=== PATIENT | male | born 1940 | race Caucasian/White ===

== ENCOUNTER 2023-04-21 04:54 | Inpatient (IN) ==
[2023-04-21] MEDS ORDERED: ONDANSETRON INJ 2 MG/ML 2 ML VIAL ONE (05:03)
[2023-04-21] MEDS ORDERED: fentaNYL citrate PF 100 MCG/2 ML VIAL ONE (05:03)
[2023-04-21] MEDS ORDERED: ONDANSETRON INJ 2 MG/ML 2 ML VIAL IV STA (05:24)
[2023-04-21] MEDS ORDERED: KETOROLAC 30 MG/ML VIAL IV ONE (05:24)
--- NOTE | 2023-04-21 05:41 | Emergency Department Note ---
Impression & Plan CHF (congestive heart failure), Hypoxia, Acute right flank pain, Supratherapeutic INR Admit to the [facility] [place] Provider Note NAME: KRISTINE BECKHAM AGE: 83 SEX: Male INFORMANT: Patient ED PROVIDER(S): Afsaneh Valenzuela DO CHIEF COMPLAINT: Right low back pain PLAN: Disposition: Admit to the [facility] [place] MEDICAL DECISION MAKING: This is an 83-year-old male patient presents emergency department with right- sided flank pain. During his emergency department evaluation, he was noted to be hypoxic with O2 saturations as low as 78%. On CT scan of the chest, the patient was noted to have significant evidence of congestive heart failure and the possibility of a small pulmonary embolism. He was treated with IV Lasix. The patient has an indwelling IVC filter and is on Coumadin with a supratherapeutic INR. Patient's right flank pain was treated prehospital setting with IV fentanyl and here in the emergency department with IV Toradol and IV Tylenol. This pain was thought to be musculoskeletal in origin. Care/management discussed with: The patient, his son, and the [facility] [place] Triage Nursing notes: reviewed and agree with them. Vital Signs: reviewed and remarkable for hypoxia Additional History obtained from: His son is at the bedside Chronic Medical/Social Conditions affecting care: CHF, A-fib, DVT, long-term anticoagulant use Differential Diagnosis: Ureteral colic, pyelonephritis, musculoskeletal strain, low back pain, sciatica Diagnostics, independently interpreted by me: ECG: Atrial fibrillation at a rate of 76 with a prolonged QT C at 506 ms. There is no ST segment elevation or signs of ischemia. Cardiac Monitoring: A-fib at a rate of 75 Imaging studies: CT scan of the chest: See radiology report HPI: 83 year old Male arrives for evaluation of low back pain. Patient developed some discomfort in his right low back a couple of days ago but the discomfort significantly worsened tonight. He describes having a similar episode approximately 1 month ago which was self-limited. PAST MEDICAL HISTORY: Diabetes, hypertension, heart disease, gout, arthritis, A- fib PAST SURGICAL HISTORY: Cholecystectomy, CABG x2 SOCIAL HISTORY: See Below, HOME MEDICATIONS: See list ALLERGIES: Niacin VITALS: See Below PHYSICAL EXAMINATION: HEENT: Head - normocephalic and atraumatic. Pupils are equal, round, and reactive to light. Extraocular eye muscles are intact, and sclera are anicteric. Moderate mucous within both eyes. Right greater than left. Nose - moist nasal mucosa without discharge. Mouth - moist buccal mucosa. Oropharynx is nonerythematous and there is no tonsillar exudate or edema noted. Neck: Supple; no JVD, nuchal rigidity, cervical lymphadenopathy, or auscultated bruits. Heart: Irregularly irregular rhythm with a controlled rate. There is a normal S1 and S2 with no murmurs, clicks, or gallops appreciated. Lungs: Clear to auscultation bilaterally with no wheezes, rales, or rhonchi. Abdomen: Soft, completely nontender, moderately distended, with good bowel sounds. There are no palpable pulsatile masses or hepatosplenomegaly. There is no guarding, rigidity, or rebound noted. Extremities: No evidence of cyanosis, clubbing, or edema. There are easily palpable peripheral pulses. Skin: Extremely dry and flaking Back: Patient has reproducible discomfort with palpation over the right flank. There is no pain to palpation over the midline lumbar spine or over the right PSIS ED treatment: balance assembler; IV Toradol; IV Zofran, IV Tylenol, IV Lasix Emergency department course: Patient was evaluated in room B12. A complete history and physical was performed. An order was placed for continuous cardiac monitoring. The patient was in A-fib at a rate of 75. A twelve-lead EKG was obtained as described above. The patient was given a dose of IV Zofran for nausea and a dose of IV Toradol for persistent right flank pain. The patient was noted to be persistently hypoxic without oxygen. In fact O2 saturations dropped as low as 78%. The patient went for CT scan of the chest for persistent hypoxia. Patient was given a dose of IV Lasix for significant congestive heart failure. Patient continued to complain of right flank pain and was given a dose of IV Tylenol. I discussed the case with the [facility] Hospitalist and they will admit for significant hypoxia and congestive heart failure. I have personally spent greater than 65 minutes of critical care time in the direct management of this patient. This includes bedside care, interpretation of diagnostic studies, and testing, discussion with consultants, patient, and family members, and other required patient management activities. This 65minutes is in excess of all separately billable procedures. Past Med/Surg History Social History Smoking Status: Former smoker Hx Alcohol Use: No Hx Substance Use: No Preferred Language: Maltese Communication Ability: Effective Historical Records Administrator Required: No Beliefs That Will Affect Care: None Current Living Situation: Other Current Living Situation Comment: with son Other Information That Helps Us Care for You: No Feels Safe at Home: Yes Safety Concerns: Feels Safe At This Time Assistive Devices: Cane and Glasses Allergies Allergies Allergy/AdvReac Type Severity Reaction Status Date / Time niacin Allergy Intermediate HIVES Verified 04/21/23 09:30 Home Meds Home Medications Medication Instructions Recorded Confirmed nitroglycerin 0.4 mg sublingual 0.4 mg sublingual PRN PRN Chest 12/09/09 04/21/23 tablet (Nitrostat) Pain ##0 terazosin 2 mg capsule 2 mg PO DAILY ##90 12/07/13 04/21/23 bismuth subsalicylate 525 mg/15 mL 525 mg PO DAILY PRN Diarrhea ##0 10/13/15 04/21/23 oral suspension travoprost 0.004 % eye drops 1 drp OPB HS #1 btl 10/13/15 04/21/23 allopurinol 100 mg tablet 200 mg PO QAM 04/21/23 04/21/23 aspirin 81 mg chewable tablet 81 mg PO .SUN/SUN/Sun04/21/23 04/21/23 brimonidine 0.2 % eye drops 1 drp OPL BID 04/21/23 04/21/23 dorzolamide-timolol (PF) 2 %-0.5 % 1 drp OPL BID 04/21/23 04/21/23 eye drops in a dropperette ezetimibe 10 mg-simvastatin 40 mg 1 tab PO HS 04/21/23 04/21/23 tablet furosemide 40 mg tablet 40 mg PO QAM 04/21/23 04/21/23 insulin aspart U-100 100 unit/mL 0 - 20 unit subcut .TIDWMEALS 04/21/23 04/21/23 subcutaneous solution (Novolog U-100 Insulin aspart) insulin detemir U-100 100 unit/mL 20 unit subcut HS 04/21/23 04/21/23 subcutaneous solution (Levemir U-100 Insulin) metformin 1,000 mg tablet 1,000 mg PO BID 04/21/23 04/21/23 metoprolol succinate 25 mg 25 mg PO BID 04/21/23 04/21/23 tablet,extended release 24 hr sotalol 120 mg tablet 120 mg PO BID 04/21/23 04/21/23 warfarin 7.5 mg tablet 3.75 mg PO [id number] 04/21/23 04/21/23 Results & Data (ED) Vital Signs Vital Signs - 24 hr 04/21/23 05:00 04/21/23 05:00 04/21/23 05:00 Temperature 36.4 C L Temperature Source Oral Pulse Rate 81 84 80 Pulse Rate [Apical] Pulse Rate from SpO2 Sensor Respiratory Rate 16 14 Respiratory Effort / Characteristics Non-Labored Respiratory Depth Normal Respiratory Pattern Regular Blood Pressure 148/84 H 148/84 H Blood Pressure [Right Arm] Blood Pressure Mean 105 105 Blood Pressure Mean [Right Arm] Pulse Oximetry 92 87 L Oxygen Delivery Method Nasal Cannula Room Air Oxygen Flow Rate 3 Sepsis Recent Fever Within 48 Hours No Sepsis New/Unexplained Change in Mental Status N/A Sepsis Action Taken by Nursing No Action Required Oxygen Flow Rate - Titration Pulse Oximetry Post Tiitration 04/21/23 06:05 04/21/23 06:48 04/21/23 07:00 Temperature Temperature Source Pulse Rate 79 82 Pulse Rate [Apical] 74 Pulse Rate from SpO2 Sensor 83 Respiratory Rate 22 15 18 Respiratory Effort / Characteristics Non-Labored Respiratory Depth Normal Respiratory Pattern Regular Blood Pressure 129/84 145/78 H Blood Pressure [Right Arm] 140/76 Blood Pressure Mean 99 100 Blood Pressure Mean [Right Arm] 97 Pulse Oximetry 94 94 98 Oxygen Delivery Method Nasal Cannula Nasal Cannula Nasal Cannula Oxygen Flow Rate 3 3 3 Sepsis Recent Fever Within 48 Hours Sepsis New/Unexplained Change in Mental Status Sepsis Action Taken by Nursing Oxygen Flow Rate - Titration Pulse Oximetry Post Tiitration 04/21/23 07:30 04/21/23 08:05 04/21/23 08:45 Temperature Temperature Source Pulse Rate 75 95 H Pulse Rate [Apical] Pulse Rate from SpO2 Sensor 76 Respiratory Rate 21 Respiratory Effort / Characteristics Respiratory Depth Respiratory Pattern Blood Pressure 145/73 H 142/92 H Blood Pressure [Right Arm] Blood Pressure Mean 97 108 Blood Pressure Mean [Right Arm] Pulse Oximetry 96 78 L Oxygen Delivery Method Nasal Cannula Room Air Oxygen Flow Rate 3 0 Sepsis Recent Fever Within 48 Hours Sepsis New/Unexplained Change in Mental Status Sepsis Action Taken by Nursing Oxygen Flow Rate - Titration 4 Pulse Oximetry Post Tiitration 97 04/21/23 09:00 04/21/23 09:31 04/21/23 10:00 Temperature Temperature Source Pulse Rate 73 75 79 Pulse Rate [Apical] Pulse Rate from SpO2 Sensor 77 81 80 Respiratory Rate 22 19 18 Respiratory Effort / Characteristics Respiratory Depth Respiratory Pattern Blood Pressure 140/78 159/83 H 149/77 H Blood Pressure [Right Arm] Blood Pressure Mean 98 108 101 Blood Pressure Mean [Right Arm] Pulse Oximetry 97 99 96 Oxygen Delivery Method Nasal Cannula Nasal Cannula Oxygen Flow Rate 2 2 Sepsis Recent Fever Within 48 Hours Sepsis New/Unexplained Change in Mental Status Sepsis Action Taken by Nursing Oxygen Flow Rate - Titration Pulse Oximetry Post Tiitration Laboratory Data 04/21/23 06:17 04/21/23 06:17 Lab Results 04/21/23 04/21/23 04/21/23 Range/Units 05:06 06:17 06:22 WBC 7.63 (4.8-10.8) K/ul RBC 3.78 L (4.70-6.10) M/uL Hgb 10.4 L (14.0-18.0) g/dl Hct 33.4 L (42.0-52.0) % MCV 88.4 (80.0-100.0) fL MCH 27.5 (25.0-34.0) pg MCHC 31.1 L (32.0-36.0) g/dL RDW Std Deviation 53.0 H (36.4-46.3) fL RDW Coeff of Radha 16.3 H (11.5-14.5) % Plt Count 176 (130-400) K/uL MPV 11.5 (9.4-12.4) fL Immature Gran % (Auto) 1.6 % Neut % (Auto) 78.5 % Lymph % (Auto) 11.1 % [place] % (Auto) 7.5 % Eos % (Auto) 0.9 % Baso % (Auto) 0.4 % Neut # (Auto) 5.99 (1.40-6.50) K/uL Lymph # (Auto) 0.85 L (1.20-3.40) K/uL [place] # (Auto) 0.57 (0.11-0.59) K/uL Eos # (Auto) 0.07 (0.00-0.50) K/uL Baso # (Auto) 0.03 (0.00-0.20) K/uL Immature Gran # (Auto) 0.12 (0.01-0.20) K/uL PT 63.4 H (9.0-12.0) Seconds INR 6.5 H* (0.9-1.1) Sodium 137 (136-145) mmol/L Potassium 3.3 L (3.5-5.1) mmol/L Chloride 103 (98-107) mmol/L Carbon Dioxide 27 (21-32) mmol/L Anion Gap 7 (3-11) BUN 21 (6-23) mg/dl Creatinine 1.04 (0.6-1.4) mg/dl Est Cr Clr Drug Dosing 63.8 ml/min Est GFR ( Amer) 76.1 ml/min Est GFR (Non-Af Amer) 65.6 ml/min BUN/Creatinine Ratio 20.2 H (10-20) Glucose 127 H (70-99(Fasting)) mg/dl Calcium 9.1 (8.6-10.3) mg/dl Total Bilirubin 0.9 (0.2-1.0) mg/dl AST 30 (13-39) U/L ALT 24 (7-52) U/L Alkaline Phosphatase 114 H (34-104) U/L Troponin I High Sens 13.9 (0-20) pg/ml B-Natriuretic Peptide (0-100) pg/ml Total Protein 7.6 (6.0-8.3) gm/dl Albumin 3.6 (3.4-5.0) gm/dl Globulin 4.0 (2.5-4.0) gm/dl Albumin/Globulin Ratio 0.9 (0.9-2) Urine Color Yellow Urine Appearance Clear (Clear) Urine pH 5.0 (4.5-7.5) Ur Specific [place] 1.011 (1.000-1.030) Urine Protein 1+ H (Negative) Urine Glucose (UA) Negative (Negative) Urine Ketones Negative (Negative) Urine Blood Negative (Negative) Urine Nitrite Negative (Negative) Urine Bilirubin Negative (Negative) Urine Urobilinogen Negative (Negative) Ur Leukocyte Esterase Negative (Negative) Urine WBC (Auto) 1-5 (0-5) /hpf Urine RBC (Auto) 0-4 (0-4) /hpf U Hyaline Cast (Auto) 1-5 (0-5) /lpf U Epithel Cells (Auto) 10-20 H (0-5) /lpf Urine Bacteria (Auto) Negative (Negative) 04/21/23 Range/Units 10:27 WBC (4.8-10.8) K/ul RBC (4.70-6.10) M/uL Hgb (14.0-18.0) g/dl Hct (42.0-52.0) % MCV (80.0-100.0) fL MCH (25.0-34.0) pg MCHC (32.0-36.0) g/dL RDW Std Deviation (36.4-46.3) fL RDW Coeff of Radha (11.5-14.5) % Plt Count (130-400) K/uL MPV (9.4-12.4) fL Immature Gran % (Auto) % Neut % (Auto) % Lymph % (Auto) % [place] % (Auto) % Eos % (Auto) % Baso % (Auto) % Neut # (Auto) (1.40-6.50) K/uL Lymph # (Auto) (1.20-3.40) K/uL [place] # (Auto) (0.11-0.59) K/uL Eos # (Auto) (0.00-0.50) K/uL Baso # (Auto) (0.00-0.20) K/uL Immature Gran # (Auto) (0.01-0.20) K/uL PT (9.0-12.0) Seconds INR (0.9-1.1) Sodium (136-145) mmol/L Potassium (3.5-5.1) mmol/L Chloride (98-107) mmol/L Carbon Dioxide (21-32) mmol/L Anion Gap (3-11) BUN (6-23) mg/dl Creatinine (0.6-1.4) mg/dl Est Cr Clr Drug Dosing ml/min Est GFR ( Amer) ml/min Est GFR (Non-Af Amer) ml/min BUN/Creatinine Ratio (10-20) Glucose (70-99(Fasting)) mg/dl Calcium (8.6-10.3) mg/dl Total Bilirubin (0.2-1.0) mg/dl AST (13-39) U/L ALT (7-52) U/L Alkaline Phosphatase (34-104) U/L Troponin I High Sens (0-20) pg/ml B-Natriuretic Peptide 621 H (0-100) pg/ml Total Protein (6.0-8.3) gm/dl Albumin (3.4-5.0) gm/dl Globulin (2.5-4.0) gm/dl Albumin/Globulin Ratio (0.9-2) Urine Color Urine Appearance (Clear) Urine pH (4.5-7.5) Ur Specific [place] (1.000-1.030) Urine Protein (Negative) Urine Glucose (UA) (Negative) Urine Ketones (Negative) Urine Blood (Negative) Urine Nitrite (Negative) Urine Bilirubin (Negative) Urine Urobilinogen (Negative) Ur Leukocyte Esterase (Negative) Urine WBC (Auto) (0-5) /hpf Urine RBC (Auto) (0-4) /hpf U Hyaline Cast (Auto) (0-5) /lpf U Epithel Cells (Auto) (0-5) /lpf Urine Bacteria (Auto) (Negative) Administered Medications Diclofenac Sodium (Diclofenac Sod 1% Gel 100 Gm Tube) 4 gm EXT Q6H [facility]; Protocol Stop: 05/21/23 11:44 Last Admin: 04/21/23 14:10 Dose: 4 gm Documented By: GUSTAVO Furosemide (Furosemide Inj 20 Mg/2 Ml Vial) 20 mg IV 1400 [facility] Stop: 05/21/23 13:59 Last Admin: 04/21/23 15:54 Dose: 20 mg Documented By: ELISA Insulin Aspart (Insulin Aspart Per Unit Charge) 0 units SC ACHS [facility] Stop: 05/21/23 11:29 Last Admin: 04/21/23 14:10 Dose: 1 units Documented By: GUSTAVO Co-signed By: MICHELLE Lactic Acid (Ammonium Lactate 12% Lotion 225 Gm Btl) 1 gm EXT BID [facility] Stop: 05/21/23 10:29 Last Admin: 04/21/23 14:09 Dose: 1 gm Documented By: GUSTAVO Metoprolol Succinate (Metoprolol Succ 50mg Ext Rel Tab) 100 mg PO BID [facility] Stop: 05/21/23 13:29 Last Admin: 04/21/23 14:11 Dose: 100 mg Documented By: GUSTAVO Discontinued Medications Furosemide (Furosemide 40 Mg/4 Ml Vial) 40 mg IV ONE ONE Stop: 04/21/23 09:10 Last Admin: 04/21/23 09:18 Dose: 40 mg Documented By: RIMMA Acetaminophen (Ofirmev) 1,000 mg in 100 mls @ 400 mls/hr IV NOW STA Stop: 04/21/23 09:37 Last Infusion: 04/21/23 11:19 Dose: Infused Documented By: Admin: 04/21/23 09:52 Dose: 400 mls/hr Documented By: RIMMA Ioversol (Optiray 320 500ml) 104 ml IV ONCE ONE Stop: 04/21/23 08:35 Last Admin: 04/21/23 08:35 Dose: 104 ml Documented By: GURJIT Ketorolac Tromethamine (Ketorolac 30 Mg/Ml Vial) 30 mg IV NOW ONE Stop: 04/21/23 05:25 Last Admin: 04/21/23 05:29 Dose: 30 mg Documented By: NEGRITA Metoprolol Succinate (Metoprolol Succ 25mg Ext Rel Tab) 25 mg PO BID [facility] Stop: 05/21/23 12:39 Last Admin: 04/21/23 15:43 Dose: Not Given Documented By: ELISA Ondansetron HCl (Ondansetron Inj 2 Mg/Ml 2 Ml Vial) 4 mg IV NOW STA Stop: 04/21/23 05:25 Last Admin: 04/21/23 05:29 Dose: 4 mg Documented By: NEGRITA Potassium Chloride (Potassium Chloride Crtab 20 Meq Tabcr) 40 meq PO NOW STA Stop: 04/21/23 09:56 Last Admin: 04/21/23 11:16 Dose: 40 meq Documented By: CAREN Sotalol HCl (Sotalol Hcl 80 Mg Tab) 120 mg PO BID [facility] Stop: 05/21/23 12:39 Last Admin: 04/21/23 15:43 Dose: Not Given Documented By: ELISA Imaging Data Radiologist's Impression: Abdomen/Pelvis CT 04/21/23 08:09 CT abd pelvis IV con only CLINICAL HISTORY: eval right flank pain TECHNIQUE: Helical axial images of the abdomen and pelvis were obtained and displayed. Automated dose lowering techniques and/or adjustment according to patient size were utilized for this exam. This exam was performed with intravenous contrast. COMPARISON: Comparison is made to CT abdomen pelvis 08/13/2011 FINDINGS: Lower chest: For findings above the diaphragm, please see CT chest performed same day. Liver: Unremarkable. No focal lesions are seen. Gallbladder and biliary tree: Patient is status post cholecystectomy. No intra- or extrahepatic biliary ductal dilation. Pancreas: Unremarkable, no focal lesions. Spleen: Unremarkable. Adrenals: Unremarkable. Kidneys and ureters: Bilateral renal cysts are seen. Bladder: Unremarkable. Reproductive organs: Prostatomegaly is seen. Bowel: The appendix is normal. Lymph nodes Retroperitoneal: Unremarkable. Pelvic: Unremarkable. Mesenteric: Unremarkable. Peritoneum: Normal. Vessels: Atherosclerotic calcifications are seen. An IVC filter is noted. Abdominal wall: A fat-containing umbilical hernia is seen. Bones: Degenerative changes in the visualized spine. Right hip total arthroplasty is seen. There is no made of a few scattered sclerotic foci which may represent bone islands, for example in the left hemipelvis. IMPRESSION: 1. No evidence of acute fracture. 2. Status post cholecystectomy. 3. Additional findings as above. ACT 112: Negative or not required by law. Electronically signed by: Chandrakant Head M.D. 04/21/2023 9:04 AM Chest CTA 04/21/23 08:09 CT angio chest PE protocol CLINICAL HISTORY: PE TECHNIQUE: Multidetector row helical CT of the chest was performed with angiographic protocol. Coronal and sagittal reformations were obtained. Coronal and sagittal MIPS were obtained from the axial data set and were submitted for review. Automated dose lowering techniques and/or adjustment according to patient size were utilized for this exam. CT DOSE: 2388.68 mGy.cm Comparison: Comparison is made to chest radiograph 10/13/2015 FINDINGS: Lungs and pleura: Small bilateral pleural effusions are seen. There is smooth intralobular septal thickening. Bronchiole wall thickening is noted and there is minimal atelectasis. There is a 8mm pulmonary nodule in the left apex (series 4 image 191) and a 6 mm nodule in the left lower lobe (image 89). Heart and pericardium: Cardiomegaly is seen with biatrial enlargement. Aortic valvular prosthesis is noted. Vessels: Severe atherosclerotic changes in the aorta and coronary arteries. There is a small filling defect in the right lower lobe (series 4 image 71). Mediastinum and chris: Numerous mediastinal lymph nodes measure up to 16 mm in diameter. Chest wall and lower neck: Multiple thyroid nodules measure up to 21 mm in diameter. Gynecomastia is noted. Abdomen: For findings below the diaphragm, please refer to CT of the abdomen dated the same. Bones: Degenerative changes in the thoracic spine. Nonspecific mild scattered sclerotic changes are seen for example in the right posterior sixth rib. IMPRESSION: 1. Findings are compatible with moderate to severe pulmonary edema. Bronchial thickening may represent small airways disease. Mediastinal nodes may be reactive. 2. Questionable pulmonary embolus in the medial right lower lobe segmental branch versus diminished flow to atelectatic lung. 3. Multiple thyroid nodules, if not previously evaluated, thyroid ultrasound can be performed. 4. Pulmonary nodules as above. According to Fleischner criteria, 3 month follow-up CT can be performed. ACT 112: Negative or not required by law. Electronically signed by: Chandrakant Head M.D. 04/21/2023 8:52 AM Venous Doppler Study 04/21/23 10:25 US venous doppler LE BI CLINICAL HISTORY: r/o dvt ble TECHNIQUE: Bilateral lower extremity real-time compression venous ultrasound with Color Doppler imaging. Utilizing real-time ultrasonic imaging multiple real time high-resolution ultrasonic images with compression and noncompression maneuvers of the deep venous system in addition to color doppler imaging were performed from the common femoral vein through the proximal calf veins. COMPARISON: None available at the time of this dictation. FINDINGS/IMPRESSION: Currently there is normal compressibility of the deep venous system from the common femoral vein through the proximal calf veins. Evaluation of calf vessels is limited by subcutaneous edema. ACT 112: Negative or not required by law. Electronically signed by: Chandrakant Head M.D. 04/21/2023 1:15 PM Discharge Plan Visit Data Chief Complaint: Back Injury/Pain Stated Complaint: Lower Back Pain ED Provider: Afsaneh Valenzuela Discharge Problem: CHF (congestive heart failure), Hypoxia, Acute right flank pain, Supratherapeutic INR Patient Disposition: Admitted As Inpatient Discharge Instructions Interventions: ED Discharge Assessment Last Done: 04/21/23 12:22 Discharge Problem: CHF (congestive heart failure) Qualifiers: Heart failure type: unspecified Heart failure chronicity: acute Qualified Code(s): I50.9 - Heart failure, unspecified
[2023-04-21 05:45] LABS: Appearance Urine Clear (Clear); Bacteria Urine Automated Negative (Negative); Bilirubin Urine Negative (Negative); Blood Urine Negative (Negative); Color Urine Yellow; Glucose Urine UA Negative (Negative); Ketones Urine Negative (Negative); Leukocyte Esterase Urine Negative (Negative); Nitrite Urine Negative (Negative); Protein Urine 1+ (Negative); RBC Urine Automated 0-4 /hpf (0-4); Specific Gravity Urine 1.011 (1.000-1.030); Urobilinogen Urine Negative (Negative)
[2023-04-21 07:26] LABS: Albumin Globulin Ratio 0.9 (0.9-2); Albumin Level 3.6 gm/dl (3.4-5.0); BUN Creatinine Ratio 20.2 (10-20); Bilirubin,Total 0.9 mg/dl (0.2-1.0); Calcium 9.1 mg/dl (8.6-10.3); Creatinine Clr Calc Pharmacy 63.8 ml/min; Est GFR (African American) 76.1 ml/min; Est GFR (Non-African American) 65.6 ml/min; Potassium 3.3 mmol/L (3.5-5.1); Total Protein 7.6 gm/dl (6.0-8.3)
[2023-04-21 07:41] LABS: Basophils # (auto) 0.03 K/uL (0.00-0.20); Basophils % (auto) 0.4 %; Eosinophils # (auto) 0.07 K/uL (0.00-0.50); Eosinophils % (auto) 0.9 %; Hematocrit (blood only) 33.4 % (42.0-52.0); Hemoglobin 10.4 g/dl (14.0-18.0); Immature Granulocytes # (auto) 0.12 K/uL (0.01-0.20); Immature Granulocytes % (auto) 1.6 %; Lymphocytes # (auto) 0.85 K/uL (1.20-3.40); Lymphocytes % (auto) 11.1 %; Mean Corpuscular Hemoglobin 27.5 pg (25.0-34.0); Mean Corpuscular Hgb Conc 31.1 g/dL (32.0-36.0); Mean Corpuscular Volume 88.4 fL (80.0-100.0); Mean Platelet Volume 11.5 fL (9.4-12.4); Monocytes # (auto) 0.57 K/uL (0.11-0.59); Monocytes % (auto) 7.5 %; Neutrophils # (auto) 5.99 K/uL (1.40-6.50); Neutrophils % (auto) 78.5 %; Platelet Count 176 K/uL (130-400); RDW Coefficient of Variation 16.3 % (11.5-14.5); Red Blood Count 3.78 M/uL (4.70-6.10); White Blood Count 7.63 K/ul (4.8-10.8)
[2023-04-21] MEDS ORDERED: OPTIRAY 320 500ml IV ONE (08:34)
--- NOTE | 2023-04-21 08:55 | CT Scan Report ---
CT angio chest PE protocol CLINICAL HISTORY: PE TECHNIQUE: Multidetector row helical CT of the chest was performed with angiographic protocol. Ferraro l and sagittal reformations were obtained. Coronal and sagittal MIPS were obtained from the axial gee a set and were submitted for review. Automated dose lowering techniques and/or adjustment according to patient size were utilized for this exam. CT DOSE: 2388.68 mGy.cm Comparison: Comparison is made to chest radiograph 10/13/2015 FINDINGS: Lungs and pleura: Small bilateral pleural effusions are seen. There is smooth intralobular septal thi ckening. Bronchiole wall thickening is noted and there is minimal atelectasis. There is a 8mm pulmona ry nodule in the left apex (series 4 image 191) and a 6 mm nodule in the left lower lobe (image 89). Heart and pericardium: Cardiomegaly is seen with biatrial enlargement. Aortic valvular prosthesis is noted. Vessels: Severe atherosclerotic changes in the aorta and coronary arteries. There is a small filling defect in the right lower lobe (series 4 image 71). Mediastinum and chris: Numerous mediastinal lymph nodes measure up to 16 mm in diameter. Chest wall and lower neck: Multiple thyroid nodules measure up to 21 mm in diameter. Gynecomastia is noted. Abdomen: For findings below the diaphragm, please refer to CT of the abdomen dated the same. Bones: Degenerative changes in the thoracic spine. Nonspecific mild scattered sclerotic changes are s een for example in the right posterior sixth rib. IMPRESSION: 1. Findings are compatible with moderate to severe pulmonary edema. Bronchial thickening may represe nt small airways disease. Mediastinal nodes may be reactive. 2. Questionable pulmonary embolus in the medial right lower lobe segmental branch versus diminished flow to atelectatic lung. 3. Multiple thyroid nodules, if not previously evaluated, thyroid ultrasound can be performed. 4. Pulmonary nodules as above. According to Fleischner criteria, 3 month follow-up CT can be perform ed. ACT 112: Negative or not required by law. Electronically signed by: Chandrakant Head M.D. 04/21/2023 8:52 AM
--- NOTE | 2023-04-21 09:06 | CT Scan Report ---
CT abd pelvis IV con only CLINICAL HISTORY: eval right flank pain TECHNIQUE: Helical axial images of the abdomen and pelvis were obtained and displayed. Automated dose lowering techniques and/or adjustment according to patient size were utilized for this exam. This e xam was performed with intravenous contrast. COMPARISON: Comparison is made to CT abdomen pelvis 08/13/2011 FINDINGS: Lower chest: For findings above the diaphragm, please see CT chest performed same day. Liver: Unremarkable. No focal lesions are seen. Gallbladder and biliary tree: Patient is status post cholecystectomy. No intra- or extrahepatic bilia ry ductal dilation. Pancreas: Unremarkable, no focal lesions. Spleen: Unremarkable. Adrenals: Unremarkable. Kidneys and ureters: Bilateral renal cysts are seen. Bladder: Unremarkable. Reproductive organs: Prostatomegaly is seen. Bowel: The appendix is normal. Lymph nodes Retroperitoneal: Unremarkable. Pelvic: Unremarkable. Mesenteric: Unremarkable. Peritoneum: Normal. Vessels: Atherosclerotic calcifications are seen. An IVC filter is noted. Abdominal wall: A fat-containing umbilical hernia is seen. Bones: Degenerative changes in the visualized spine. Right hip total arthroplasty is seen. There is n o made of a few scattered sclerotic foci which may represent bone islands, for example in the left he mipelvis. IMPRESSION: 1. No evidence of acute fracture. 2. Status post cholecystectomy. 3. Additional findings as above. ACT 112: Negative or not required by law. Electronically signed by: Chandrakant Head M.D. 04/21/2023 9:04 AM
[2023-04-21] MEDS ORDERED: FUROSEMIDE 40 MG/4 ML VIAL IV ONE ×2 (09:09→09:14)
[2023-04-21] MEDS ORDERED: ACETAMINOPHEN 1,000 MG/100 ML VIAL IV STA (09:23)
[2023-04-21 09:47] LABS: Prothrombin Time 63.4 Seconds (9.0-12.0)
[2023-04-21 09:50] LABS: Troponin I High Sensitivity 13.9 pg/ml (0-20)
[2023-04-21 09:52] LABS: INR 6.5 (0.9-1.1)
[2023-04-21] MEDS ORDERED: POTASSIUM CHLORIDE CRTAB 20 MEQ TABCR PO STA ×2 (09:55→18:59)
[2023-04-21] MEDS ORDERED: GLUCOSE 10 TAB/TUBE PO PRN (10:31)
[2023-04-21] MEDS ORDERED: PHARMACY GLYCEMIC MGMT CONSULT PRN (10:31)
[2023-04-21] MEDS ORDERED: MAGNESIUM HYDROXIDE SUSP 30 ML UDC PO PRN (10:31)
[2023-04-21] MEDS ORDERED: GLUCAGON FOR INJ 1 MG VIAL SQ PRN (10:31)
[2023-04-21] MEDS ORDERED: GLUCOSE 40% GEL 15 GM TUBE PO PRN (10:31)
[2023-04-21] MEDS ORDERED: CARBOHYDRATES FOR HYPOGLYCEMIA PO PRN (10:31)
[2023-04-21] MEDS ORDERED: ALUMINUM/MAGNESIUM SUSP 30 ML UDC PO PRN (10:31)
[2023-04-21] MEDS ORDERED: DEXTROSE 50% 50 ML SYRINGE IV PRN (10:31)
--- NOTE | 2023-04-21 10:55 | History & Physical Report ---
Date of Service April 21, 2023 Assessment & Plan (1) CHF (congestive heart failure): Plan Patient came in with low back pain, was found to be hypoxic at 78% on room air in ED. CTA chest was done which showed pulmonary edema and is concerning for questionable small blood clot. He is being managed for the following: Acute on chronic diastolic heart failure: Patient hypoxic on room air, requiring [address] chest with pulmonary edema. BNP 621. Patient reports taking his Lasix 40 mg daily. Might be his Lasix dose requirement has increased. Lasix 40 mg IV daily in the morning and 20 mg IV in the afternoon. Update echo, get BNP. Telemetry monitoring Cardiology consult Heart healthy diet, less than 2 g sodium a day. Maintain I's and O's. Monitor replete electrolytes. Potassium added. Low back pain: Likely musculoskeletal in origin, no radiation or radicular symptoms, CTAP reviewed. Diclofenac gel scheduled, as needed pain medication. PT/OT. Dry BLE: lac hydrin lotion bid. Supratherapeutic INR: Outpatient chart review with INR of 9.0 on 03/26/2023. Admitting INR of 6.5. Per patient, he takes Coumadin half of 7.5 mg tablet every day except and Sunday. Hold Coumadin. INR in AM. No signs of bleeding, Hb stable. Abnormal CTA chest: Concern of blood clot, will get D-dimer and US venous Doppler BLE. Doubt it is blood clot, if above tests are negative will need repeat CTA chest PE protocol in 2 days to confirm blood clot. Patient does have history of IVC filter placed about 20 years ago per patient. Multiple thyroid nodules noted, thyroid ultrasound recommended, can be done as an outpatient. 8 mm left apex pulmonary nodule and 6 mm left lower lobe pulmonary nodule noted, follow-up CT scan in 3 months recommended. Other chronic medical condition: As mentioned in HPI. Continue with/resume home meds as and when able. DVT prophylaxis: Patient is supratherapeutic INR. Full code History of Present Illness Chief Complaint: Right lower back pain Primary Care Provider: Sourav Verde MD 83-year-old gentleman with PMH of postoperative DVT after Hip Replacement Sx status post IVC filter around 20 years ago per pt, aortic valve replacement and Paroxysmal afib on Coumadin, T2DM, HLD, gout on allopurinol, CAD, HTN, PETER inhibitor nephrotoxicity, pernicious anemia presented to the ED with complaint of right lower back pain. Patient reports having a sore spot over the right lower back since last 4 to 5 days, denies any fall or trauma, thinks he might have twisted. He describes the pain as very sharp, 10+/10 with movement, relieved with rest at 1/10 intensity, improved with pain medication in the ED, no radiation. Patient denies febrile illness or flulike illness, denies pain or burning with passing urine, reports bowel movement at his baseline, reports baseline cough with scant light sputum, denies headache or dizziness or chest pain or palpitation or sore throat or belly pain. The pain on the right lower back is reproducible on exam with palpation. Patient reports being compliant with his Lasix, reports drinking 64 ounces of fluids a day, denies extra salt addition to his diet. Patient denies alcohol or recreational drug use, reports quitting smoking 30 years ago Full code Medications discussed with the patient Plan of care discussed with the patient and patient's son at bedside who voiced understanding. Patient's son Vu [[phone]]. Allergies Allergy/AdvReac Type Severity Reaction Status Date / Time niacin Allergy Intermediate HIVES Verified 04/21/23 09:30 Home Medications Medication Instructions Recorded Confirmed Type nitroglycerin 0.4 mg sublingual 0.4 mg sublingual PRN PRN Chest 12/09/09 04/21/23 History tablet (Nitrostat) Pain ##0 terazosin 2 mg capsule 2 mg PO DAILY ##90 12/07/13 04/21/23 History bismuth subsalicylate 525 mg/15 mL 525 mg PO DAILY PRN Diarrhea ##0 10/13/15 04/21/23 History oral suspension travoprost 0.004 % eye drops 1 drp OPB HS #1 btl 10/13/15 04/21/23 History allopurinol 100 mg tablet 200 mg PO QAM 04/21/23 04/21/23 History aspirin 81 mg chewable tablet 81 mg PO .MON/WED/FRI 04/21/23 04/21/23 History brimonidine 0.2 % eye drops 1 drp OPL BID 04/21/23 04/21/23 History dorzolamide-timolol (PF) 2 %-0.5 % 1 drp OPL BID 04/21/23 04/21/23 History eye drops in a dropperette ezetimibe 10 mg-simvastatin 40 mg 1 tab PO HS 04/21/23 04/21/23 History tablet furosemide 40 mg tablet 40 mg PO QAM 04/21/23 04/21/23 History insulin aspart U-100 100 unit/mL 0 - 20 unit subcut .TIDWMEALS 04/21/23 04/21/23 History subcutaneous solution (Novolog U-100 Insulin aspart) insulin detemir U-100 100 unit/mL 20 unit subcut HS 04/21/23 04/21/23 History subcutaneous solution (Levemir U-100 Insulin) metformin 1,000 mg tablet 1,000 mg PO BID 04/21/23 04/21/23 History metoprolol succinate 25 mg 25 mg PO BID 04/21/23 04/21/23 History tablet,extended release 24 hr sotalol 120 mg tablet 120 mg PO BID 04/21/23 04/21/23 History warfarin 7.5 mg tablet 3.75 mg PO 5XWK 04/21/23 04/21/23 History Past Med/Surg History Social History Smoking Status: Former smoker Preferred Language: Icelandic Feels Safe at Home: Yes Review of Systems Review of Systems: Negative otherwise mentioned in HPI. Physical Exam Physical Exam: GENERAL: Alert and oriented x3. NAD, on 3L NC O2. HEENT: No pallor, no icterus. Pupils equal, round and reactive to light. Oral mucosa moist. NECK: No JVD, no neck masses. HEART: S1 and S2 heard. Regular rate and rhythm. + murmur, no gallop. RESPIRATORY SYSTEM: Normal AP diameter. No accessory muscle use. No wheezing, b/l mid and basal crackles. ABDOMEN: Soft, bowel sounds present, nontender, no distention. CENTRAL NERVOUS SYSTEM: No facial droop. Speech is clear. Obeys simple commands. Moves extremities. EXTREMITIES: BLE dry w/ scales, 2+ pitting edema Rt low back tenderness x minimal Results & Data Results & Data Vital Signs (Past 12 Hours) Vital Signs Temp Pulse Pulse Resp BP BP Pulse Ox 04/21/23 10:31 95 04/21/23 09:31 75 19 159/83 H 99 04/21/23 09:00 73 22 140/78 97 04/21/23 08:45 95 H 142/92 H 04/21/23 08:05 78 L 04/21/23 07:30 75 21 145/73 H 96 04/21/23 07:00 82 18 145/78 H 98 04/21/23 06:48 74 15 140/76 94 04/21/23 06:05 79 22 129/84 94 04/21/23 05:00 80 14 148/84 H 87 L 04/21/23 05:00 36.4 C L 84 16 148/84 H 92 04/21/23 05:00 81 O2 Del Method O2 Flow Rate 04/21/23 10:31 Nasal Cannula 3 04/21/23 09:31 Nasal Cannula 2 04/21/23 09:00 Nasal Cannula 2 04/21/23 08:45 04/21/23 08:05 Room Air 0 04/21/23 07:30 Nasal Cannula 3 04/21/23 07:00 Nasal Cannula 3 04/21/23 06:48 Nasal Cannula 3 04/21/23 06:05 Nasal Cannula 3 04/21/23 05:00 Room Air 04/21/23 05:00 Nasal Cannula 3 04/21/23 05:00 Code Status & VTE Plan VTE Prophylaxis Plan VTE Prophylaxis will be ordered: Yes (1) CHF (congestive heart failure) Heart failure chronicity: acute Heart failure type: unspecified Qualified Code(s): I50.9 - Heart failure, unspecified
[2023-04-21] MEDS ORDERED: oxyCODONE/ACETAMINOPHEN 5mg/325mg TAB PO PRN (11:38)
[2023-04-21 11:43] LABS: D Dimer 940 ug/L FEU (0-500)
--- NOTE | 2023-04-21 12:03 | Cardiology Consultation ---
Date of Consultation April 21, 2023 Assessment & Plan (1) Diastolic heart failure due to valvular disease: (2) Hypoxia: (3) Mitral valve stenosis: (4) Atrial fibrillation: (5) S/P AVR: (6) S/P CABG x 2: Plan Complex 83-year-old male with chronic valvular heart disease status post remote aortic valve replacement with mechanical prosthesis, progressively worsening calcific mitral valve disease with moderate to severe mitral stenosis Prior paroxysmal atrial fibrillation Presents today for noncardiac complaints but found to have findings consistent with congestive heart failure with bilateral pleural effusions and increased interstitial markings likely reflecting patient's worsening mitral valve disease as well as recurrent atrial fibrillation 1. Acute on chronic diastolic heart failure secondary to valvular disease, mitral stenosis: IV diuretics ordered would continue despite significant stasis edema profound volume overload not physically examined in x-ray and imaging findings likely reflect patient's elevated right heart pressures and mitral stenosis 2. Past paroxysmal atrial fibrillation now presenting in atrial fibrillation. High risk for continuation of sotalol we will discontinue. Increase metoprolol succinate to 100 mg twice per day 3. Valvular heart disease with normally functioning mechanical prosthesis aortic valve position, moderate to severe mitral stenosis 4. Elevated INR: Suspect being aggravated by right heart pressure elevation, right heart failure. If back pain persists repeat imaging may be warranted History of Present Illness Reason for Consultation: Congestive heart failure, back pain Requesting Physician: Dr. Soriano Attending Physician: Dr. Soriano History of Present Illness Patient is an 83-year-old male with complex cardiac history which includes 1. Aortic valve replacement in June 2006, for calcific aortic stenosis, receiving a 21 mm [employer] mechanical prosthesis. 2. Calcified mitral valve with moderate to severe mitral stenosis. 3. Atherosclerotic coronary disease status post coronary bypass grafting at time of aortic valve replacement, receiving saphenous vein graft to the obtuse marginal, saphenous vein graft to the posterior descending artery. 4. Diffuse coronary atherosclerosis. Pre-op cardiac catheterization with 50% LAD, 100% obtuse marginal, 100% right coronary artery. 5. Postoperative atrial fibrillation/flutter, previously controlled in sinus. With oral sotalol 6. History of venous insufficiency, status post past DVT and chronic IVC filter implantation. 7. Hyperlipidemia. 8. Hypertension. Patient routinely followed by cardiology though no recent visits. Last visit January 2022 Presented to the ER today noting complaints of low back pain. He denies symptoms of dyspnea or chest pain. He was observed to have hypoxia and was referred for CT chest and noted to have have bilateral pleural effusion and increased interstitial edema. Patient referred now for further evaluation. Patient does not wear oxygen at home Mostly compliant with diuretics Notes no fevers chills or productive cough Has been compliant with medications Notes activity level has slowed over the last years time. No overt bleeding though INR elevated Allergies Allergy/AdvReac Type Severity Reaction Status Date / Time niacin Allergy Intermediate HIVES Verified 04/21/23 09:30 Home Medications Medication Instructions Recorded Confirmed Type nitroglycerin 0.4 mg sublingual 0.4 mg sublingual PRN PRN Chest 12/09/0904/21 History tablet (Nitrostat) Pain ##0 terazosin 2 mg capsule 2 mg PO DAILY ##90 12/07/13 04/21/23 History bismuth subsalicylate 525 mg/15 mL 525 mg PO DAILY PRN Diarrhea ##0 10/13/15 04/21/23 History oral suspension travoprost 0.004 % eye drops 1 drp OPB HS #1 btl 10/13/15 04/21/23 History allopurinol 100 mg tablet 200 mg PO QAM 04/21/23 04/21/23 History aspirin 81 mg chewable tablet 81 mg PO .MON/SUN/Sun04/21/23 04/21/23 History brimonidine 0.2 % eye drops 1 drp OPL BID 04/21/23 04/21/23 History dorzolamide-timolol (PF) 2 %-0.5 % 1 drp OPL BID 04/21/23 04/21/23 History eye drops in a dropperette ezetimibe 10 mg-simvastatin 40 mg 1 tab PO HS 04/21/23 04/21/23 History tablet furosemide 40 mg tablet 40 mg PO QAM 04/21/23 04/21/23 History insulin aspart U-100 100 unit/mL 0 - 20 unit subcut .TIDWMEALS 04/21/23 04/21/23 History subcutaneous solution (Novolog U-100 Insulin aspart) insulin detemir U-100 100 unit/mL 20 unit subcut HS 04/21/23 04/21/23 History subcutaneous solution (Levemir U-100 Insulin) metformin 1,000 mg tablet 1,000 mg PO BID 04/21/23 04/21/23 History metoprolol succinate 25 mg 25 mg PO BID 04/21/23 04/21/23 History tablet,extended release 24 hr sotalol 120 mg tablet 120 mg PO BID 04/21/23 04/21/23 History warfarin 7.5 mg tablet 3.75 mg PO 5XWK 04/21/23 04/21/23 History Patient History Social History Smoking Status: Former smoker Preferred Language: Israeli Feels Safe at Home: Yes Review of Systems Review of Systems: All systems reviewed & are unremarkable except as noted in HPI & below Results & Data Vital Signs (Past 12 Hours) Vital Signs Temp Pulse Pulse Resp BP BP Pulse Ox 04/21/23 10:31 95 04/21/23 10:00 79 18 149/77 H 96 04/21/23 09:31 75 19 159/83 H 99 04/21/23 09:00 73 22 140/78 97 04/21/23 08:45 95 H 142/92 H 04/21/23 08:05 78 L 04/21/23 07:30 75 21 145/73 H 96 04/21/23 07:00 82 18 145/78 H 98 04/21/23 06:48 74 15 140/76 94 04/21/23 06:05 79 22 129/84 94 04/21/23 05:00 80 14 148/84 H 87 L 04/21/23 05:00 36.4 C L 84 16 148/84 H 92 04/21/23 05:00 81 O2 Del Method O2 Flow Rate 04/21/23 10:31 Nasal Cannula 3 04/21/23 10:00 04/21/23 09:31 Nasal Cannula 2 04/21/23 09:00 Nasal Cannula 2 04/21/23 08:45 04/21/23 08:05 Room Air 0 04/21/23 07:30 Nasal Cannula 3 04/21/23 07:00 Nasal Cannula 3 04/21/23 06:48 Nasal Cannula 3 04/21/23 06:05 Nasal Cannula 3 04/21/23 05:00 Room Air 04/21/23 05:00 Nasal Cannula 3 04/21/23 05:00 Laboratory Results Laboratory Results - last 24 hr 04/21/23 04/21/23 04/21/23 05:06 06:17 06:22 WBC 7.63 RBC 3.78 L Hgb 10.4 L Hct 33.4 L MCV 88.4 MCH 27.5 MCHC 31.1 L RDW Std Deviation 53.0 H RDW Coeff of Radha 16.3 H Plt Count 176 MPV 11.5 Immature Gran % (Auto) 1.6 Neut % (Auto) 78.5 Lymph % (Auto) 11.1 Cowley % (Auto) 7.5 Eos % (Auto) 0.9 Baso % (Auto) 0.4 Neut # (Auto) 5.99 Lymph # (Auto) 0.85 L Cowley # (Auto) 0.57 Eos # (Auto) 0.07 Baso # (Auto) 0.03 Immature Gran # (Auto) 0.12 PT 63.4 H INR 6.5 H* D-Dimer Sodium 137 Potassium 3.3 L Chloride 103 Carbon Dioxide 27 Anion Gap 7 BUN 21 Creatinine 1.04 Est Cr Clr Drug Dosing 63.8 Est GFR ( Amer) 76.1 Est GFR (Non-Af Amer) 65.6 BUN/Creatinine Ratio 20.2 H Glucose 127 H POC Glucose Calcium 9.1 Total Bilirubin 0.9 AST 30 ALT 24 Alkaline Phosphatase 114 H Troponin I High Sens 13.9 B-Natriuretic Peptide Total Protein 7.6 Albumin 3.6 Globulin 4.0 Albumin/Globulin Ratio 0.9 Urine Color Yellow Urine Appearance Clear Urine pH 5.0 Ur Specific [place] 1.011 Urine Protein 1+ H Urine Glucose (UA) Negative Urine Ketones Negative Urine Blood Negative Urine Nitrite Negative Urine Bilirubin Negative Urine Urobilinogen Negative Ur Leukocyte Esterase Negative Urine WBC (Auto) 1-5 Urine RBC (Auto) 0-4 U Hyaline Cast (Auto) 1-5 U Epithel Cells (Auto) 10-20 H Urine Bacteria (Auto) Negative 04/21/23 04/21/23 04/21/23 10:27 10:33 11:34 WBC RBC Hgb Hct MCV MCH MCHC RDW Std Deviation RDW Coeff of Radha Plt Count MPV Immature Gran % (Auto) Neut % (Auto) Lymph % (Auto) [place] % (Auto) Eos % (Auto) Baso % (Auto) Neut # (Auto) Lymph # (Auto) Cowley # (Auto) Eos # (Auto) Baso # (Auto) Immature Gran # (Auto) PT INR D-Dimer 940 H* Sodium Potassium Chloride Carbon Dioxide Anion Gap BUN Creatinine Est Cr Clr Drug Dosing Est GFR ( Amer) Est GFR (Non-Af Amer) BUN/Creatinine Ratio Glucose POC Glucose 159 H Calcium Total Bilirubin AST ALT Alkaline Phosphatase Troponin I High Sens B-Natriuretic Peptide 621 H Total Protein Albumin Globulin Albumin/Globulin Ratio Urine Color Urine Appearance Urine pH Ur Specific [place] Urine Protein Urine Glucose (UA) Urine Ketones Urine Blood Urine Nitrite Urine Bilirubin Urine Urobilinogen Ur Leukocyte Esterase Urine WBC (Auto) Urine RBC (Auto) U Hyaline Cast (Auto) U Epithel Cells (Auto) Urine Bacteria (Auto) Diagnostic Findings Echocardiogram 04/21/2023 Moderate left hypertrophy with normal left or systolic function. There is septal flattening consistent with elevated pulmonary pressure Normally functioning mechanical prosthesis in the aortic valve position Severely calcified mitral valve and mitral valve apparatus with moderate to severe mitral stenosis Mild to moderate mitral and severe Biatrial enlargement Moderate to severe elevation pulmonary pressures ECG Additional Comments: EKG 04/21/2023 Atrial fibrillation with controlled ventricular rate, 76 bpm, nonspecific ST segment changes QT corrected 506
[2023-04-21] MEDS ORDERED: SOTALOL HCL 80 MG TAB PO SCH (12:40)
[2023-04-21] MEDS ORDERED: BISMUTH SUBSALICYLATE SUSP PO PRN (12:40)
[2023-04-21] MEDS ORDERED: METOPROLOL SUCC 25MG EXT REL TAB PO SCH (12:40)
[2023-04-21] MEDS ORDERED: INSULIN ASPART PER UNIT CHARGE ONE (13:01)
--- NOTE | 2023-04-21 13:16 | Ultrasound Report ---
US venous doppler LE BI CLINICAL HISTORY: r/o dvt ble TECHNIQUE: Bilateral lower extremity real-time compression venous ultrasound with Color Doppler imagi ng. Utilizing real-time ultrasonic imaging multiple real time high-resolution ultrasonic images with compression and noncompression maneuvers of the deep venous system in addition to color doppler imagi ng were performed from the common femoral vein through the proximal calf veins. COMPARISON: None available at the time of this dictation. FINDINGS/IMPRESSION: Currently there is normal compressibility of the deep venous system from the common femoral vein thro ugh the proximal calf veins. Evaluation of calf vessels is limited by subcutaneous edema. ACT 112: Negative or not required by law. Electronically signed by: Chandrakant Head M.D. 04/21/2023 1:15 PM
[2023-04-21] MEDS: AMMONIUM LACTATE 12% LOTION 225 GM BTL EXT SCH ×2 (14:09→20:20)
[2023-04-21] MEDS: DICLOFENAC SOD 1% GEL 100 GM TUBE EXT SCH ×3 (14:10→23:45)
[2023-04-21] MEDS: INSULIN ASPART PER UNIT CHARGE SC SCH ×3 (14:10→21:17)
[2023-04-21] MEDS: METOPROLOL SUCC 50MG EXT REL TAB PO SCH ×2 (14:11→20:22)
--- NOTE | 2023-04-21 15:02 | Pharmacy Report ---
Pharmacy Glycemic Short Note 2 - Date of Service April 21, 2023 - Glycemic Short BSG Results (Last 24 hours): 04/21/23 04/21/23 06:17 11:34 Glucose 127 H POC Glucose 159 H OUTPATIENT ANTIDIABETIC REGIMEN: * Levemir 20 units SQ HS * Novolog 0-20 units SS SQ TIDM * Metformin 1 gm PO BID ASSESSMENT: * 83 y/o M admitted for low back pain. He has history of Type 2 diabetes managed on basal and bolus insulins and oral Metformin at home. * Patient took his last dose of basal insulin prior to admission yesterday. Slightly reduced dose of basal (stress of 2) ordered for HS. * Novolog parameters ordered based off of his home doses. This may need tightened if BSGs are trending up. PLAN FOR INPATIENT GLYCEMIC CONTROL: * Hold outpatient oral diabetes medications * Basal insulin * Lantus 15 units SQ HS * Bolus insulin * NovoLog per scale ACHS or Q6hrs while NPO * Goal Range: Low 120 mg/dL - High 150 mg/dL * Correction Factor: 30 mg/dL/unit * Nutritional / Prandial insulin per carb ratio of 1 unit per 11 grams CHO consumed
[2023-04-21] MEDS: FUROSEMIDE INJ 20 MG/2 ML VIAL IV SCH (15:54)
[2023-04-21] MEDS: ACETAMINOPHEN 325 MG TAB PO PRN (18:25)
[2023-04-21] MEDS: DORZOLAMIDE/TIMOLOL 22.3/6.8MG/ML 10 ML BTL OPL SCH (20:21)
[2023-04-21] MEDS: BRIMONIDINE TARTRATE 0.2% 5ML OPL SCH (20:23)
[2023-04-21] MEDS ORDERED: LANTUS PER UNIT CHARGE SQ SCH ×2 (21:00)
[2023-04-21] MEDS ORDERED: EZETIMIBE/SIMVASTATIN 10/40MG TAB PO SCH (21:00)
[2023-04-21] MEDS ORDERED: METOPROLOL SUCC 50MG EXT REL TAB PO SCH (21:00)
[2023-04-21] MEDS: SIMVASTATIN 40 MG TAB PO SCH (22:28)
[2023-04-21] MEDS: EZETIMIBE 10 MG TAB PO SCH (22:28)
[2023-04-22] MEDS: ACETAMINOPHEN 325 MG TAB PO PRN (02:41)
[2023-04-22] MEDS: DICLOFENAC SOD 1% GEL 100 GM TUBE EXT SCH ×4 (05:26→22:56)
[2023-04-22] MEDS ORDERED: oxyCODONE HCL IR 5 MG TAB (IMMEDIATE RELEASE) PO STA (05:59)
[2023-04-22 06:27] LABS: Hematocrit (blood only) 31.1 % (42.0-52.0); Hemoglobin 9.8 g/dl (14.0-18.0); Mean Corpuscular Hemoglobin 27.6 pg (25.0-34.0); Mean Corpuscular Hgb Conc 31.5 g/dL (32.0-36.0); Mean Corpuscular Volume 87.6 fL (80.0-100.0); Mean Platelet Volume 11.7 fL (9.4-12.4); Platelet Count 171 K/uL (130-400); RDW Coefficient of Variation 16.3 % (11.5-14.5); RDW Standard Deviation 52.2 fL (36.4-46.3); Red Blood Count 3.55 M/uL (4.70-6.10)
[2023-04-22 06:40] LABS: BUN Creatinine Ratio 24.7 (10-20); Calcium 8.7 mg/dl (8.6-10.3); Creatinine Clr Calc Pharmacy 73.4 ml/min; Est GFR (African American) 87.1 ml/min; Est GFR (Non-African American) 75.1 ml/min; Magnesium 1.1 mg/dl (1.7-2.4); Potassium 4.1 mmol/L (3.5-5.1)
[2023-04-22 06:53] LABS: Prothrombin Time 69.7 Seconds (9.0-12.0)
[2023-04-22 07:04] LABS: INR 7.2 (0.9-1.1)
[2023-04-22] MEDS ORDERED: PHYTONADIONE 2.5 MG in DEXTROSE 5% 50 ML IV ONE (07:30)
[2023-04-22 08:12] LABS: Estimated Average Glucose 163 mg/dl; Hemoglobin A1C 7.3 % (4.5-5.6)
[2023-04-22] MEDS: INSULIN ASPART PER UNIT CHARGE SC SCH ×4 (08:42→20:48)
[2023-04-22] MEDS ORDERED: POTASSIUM CHLORIDE CRTAB 20 MEQ TABCR PO SCH (09:00)
[2023-04-22] MEDS: allopurinoL 100 MG TAB PO SCH (09:05)
[2023-04-22] MEDS: AMMONIUM LACTATE 12% LOTION 225 GM BTL EXT SCH ×2 (09:06→20:38)
[2023-04-22] MEDS: BRIMONIDINE TARTRATE 0.2% 5ML OPL SCH ×2 (09:07→20:40)
[2023-04-22] MEDS: DORZOLAMIDE/TIMOLOL 22.3/6.8MG/ML 10 ML BTL OPL SCH ×2 (09:07→20:39)
[2023-04-22] MEDS: METOPROLOL SUCC 50MG EXT REL TAB PO SCH ×2 (09:08→20:42)
[2023-04-22] MEDS: FUROSEMIDE 40 MG/4 ML VIAL IV SCH (09:08)
[2023-04-22] MEDS: TERAZOSIN HCL 1 MG CAP PO SCH (09:11)
[2023-04-22 11:36] LABS: INR 5.3 (0.9-1.1); Prothrombin Time 52.6 Seconds (9.0-12.0)
--- NOTE | 2023-04-22 11:38 | Cardiology Progress Note ---
Date of Service April 22, 2023 Assessment & Plan (1) Diastolic heart failure due to valvular disease: (2) Hypoxia: (3) Mitral valve stenosis: (4) Atrial fibrillation: (5) S/P AVR: (6) S/P CABG x 2: Plan Complex 83-year-old male with chronic valvular heart disease status post remote aortic valve replacement with mechanical prosthesis, progressively worsening calcific mitral valve disease with moderate to severe mitral stenosis Prior paroxysmal atrial fibrillation Presents for noncardiac complaints but found to have findings consistent with congestive heart failure with bilateral pleural effusions and increased interstitial markings likely reflecting patient's worsening mitral valve disease as well as recurrent atrial fibrillation 1. Acute on chronic diastolic heart failure secondary to valvular disease, mitral stenosis: IV diuretics ordered would continue despite significant stasis edema profound volume overload not physically examined in x-ray and imaging findings likely reflect patient's elevated right heart pressures and mitral stenosis 2. Past paroxysmal atrial fibrillation now presenting in atrial fibrillation. Unlikely return to sinus rhythm. High risk for continuation of sotalol we will discontinue. Increase metoprolol succinate to 100 mg twice per day 3. Valvular heart disease with normally functioning mechanical prosthesis aortic valve position, moderate to severe mitral stenosis 4. Elevated INR: Suspect being aggravated by right heart pressure elevation, right heart failure. If back pain persists repeat imaging may be warranted 04/22/2023 Improved from cardiac standpoint We will continue IV diuretics and additional day Continue with back pain may warrant additional imaging given elevated INR and consistent symptoms, acute onset duration 9 to 10 days Admission and Anticipated Discharge Date Admission Date: April 21, 2023 Subjective Patient seen and examined, chart, medications, telemetry reviewed. Main complaint once again is low back pain. No cardiac issues did manifest diuresis overnight and respiratory status is stable. Remains in atrial fibrillation with controlled ventricular response. No pauses or bradycardia arrhythmias EKG 04/22/2023 atrial fibrillation at 64 bpm Review of Systems Review of Systems: All systems reviewed & are unremarkable except as noted in Subjective Results & Data Vital Signs (Past 12 Hours) Vital Signs Temp Pulse Pulse Resp BP Pulse Ox O2 Del Method 04/22/23 10:54 81 04/22/23 09:01 79 18 131/68 94 Nasal Cannula 04/22/23 07:52 36.3 C L 51 L 18 137/68 93 Nasal Cannula 04/22/23 07:33 Nasal Cannula 04/22/23 03:26 36.8 C 76 20 154/68 H 91 Nasal Cannula O2 Flow Rate 04/22/23 10:54 04/22/23 09:01 2 04/22/23 07:52 3 04/22/23 07:33 2 04/22/23 03:26 3 Laboratory Results Laboratory Results - last 24 hr 04/21/23 04/21/23 04/22/23 15:29 20:27 04:37 WBC 6.50 RBC 3.55 L Hgb 9.8 L Hct 31.1 L MCV 87.6 MCH 27.6 MCHC 31.5 L RDW Std Deviation 52.2 H RDW Coeff of Radha 16.3 H Plt Count 171 MPV 11.7 PT 69.7 H INR 7.2 H* Sodium 138 Potassium 4.1 D Chloride 105 Carbon Dioxide 27 Anion Gap 6 BUN 23 Creatinine 0.93 Est Cr Clr Drug Dosing 73.4 Est GFR ( Amer) 87.1 Est GFR (Non-Af Amer) 75.1 BUN/Creatinine Ratio 24.7 H Glucose 104 H POC Glucose 143 H 124 H Estimat Average Glucose 163 Hemoglobin A1c 7.3 H Calcium 8.7 Phosphorus 3.0 Magnesium 1.1 L 04/22/23 04/22/23 08:01 10:39 WBC RBC Hgb Hct MCV MCH MCHC RDW Std Deviation RDW Coeff of Radha Plt Count MPV PT 52.6 H INR 5.3 H Sodium Potassium Chloride Carbon Dioxide Anion Gap BUN Creatinine Est Cr Clr Drug Dosing Est GFR ( Amer) Est GFR (Non-Af Amer) BUN/Creatinine Ratio Glucose POC Glucose 112 H Estimat Average Glucose Hemoglobin A1c Calcium Phosphorus Magnesium
--- NOTE | 2023-04-22 12:07 | Hospitalist Progress Note ---
Date of Service April 22, 2023 Assessment & Plan (1) CHF (congestive heart failure): Plan Patient came in with low back pain, was found to be hypoxic at 78% on room air in ED. CTA chest was done which showed pulmonary edema and is concerning for questionable small blood clot. He is being managed for the following: Acute on chronic diastolic heart failure Patient hypoxic on room air, requiring 3 L oxygen on admission CT chest with pulmonary edema. BNP 621. Patient reports taking his home Lasix 40 mg daily. Continue Lasix 40 mg IV daily in the morning and 20 mg IV in the afternoon. Echo with EF 60-65%, LVH, RV elevation/overload, dilated atria, mod-severe mitral stenosis, mild-mod mitral regurg and mod tricuspid regurg. Cardiology consult-appreciate recs -Continue with IV diuretics -metoprolol succ 100mg BID for atrial fibrillation Heart healthy diet, less than 2 g sodium a day. Strict I's and O's, weights. Monitor replete electrolytes. Potassium added. Atrial Fibrillation Currently in atrial fibrillation On metoprolol succinate, dose increased to 100mg BID Usually on coumadin, currently on hold with supratherapeutic INR INR went up to 7.2 today, received one dose of IV Vit K 2.5mg INR 5.3 after Vit K, continue to hold coumadin, AM recheck Supratherapeutic INR: Outpatient chart review with INR of 9.0 on 03/26/2023 Admitting INR of 6.5 INR went up to 7.2 today, received one dose of IV Vit K 2.5mg Per patient, he takes Coumadin half of 7.5 mg tablet every day except and Sunday. Hold Coumadin. INR in AM. No signs of bleeding at this time however back pain persistent and worsening (see below) Hgb stable. Low back pain Persistent, worsening Given persistence and significantly elevated INR, concern for bleeding, retroperitoneal? CT abd/pelvis reviewed from 04/21 MRI lumbar spine ordered as well as repeat CT abd/pelvis to r/o the above Abnormal CTA chest: Concern for a blood clot D-dimer elevated at 940 US venous Doppler BLE- no noted DVT though limited by edema Consider repeat CTA chest PE protocol in 2 days to confirm blood clot Patient does have history of IVC filter placed about 20 years ago per patient. INR currently supratherapeutic at 5.3, holding coumadin at this time. Thyroid nodules Multiple thyroid nodules noted, thyroid ultrasound recommended, can be done as an outpatient after discharge. 8 mm left apex pulmonary nodule and 6 mm left lower lobe pulmonary nodule noted, follow-up CT scan in 3 months recommended. DMII hemoglobin a1c of 7.2 Hold home meds Basal/bolus while hospitalized Other chronic medical conditions: continue other home meds Diet: DMII, HH, Low sodium DVT prophylaxis: Patient is supratherapeutic INR. Full code Dispo: consider ordering PT/OT once INR therapeutic, in an effort to be extra cautious about potentially falling with activity. Admission and Anticipated Discharge Date Admission Date: April 21, 2023 Subjective Pt seen early in the AM, after urgent page about INR of 7.2. States he feels ok, only has some persistent back pain. Notes that his INR has been continuously elevated. Denies hematuria, hemoptysis or epistaxis. Review of Systems Review of Systems: All systems reviewed & are unremarkable except as noted in Subjective Physical Exam Physical Exam: General: Alert, oriented. No acute distress Psych: Appropriate mood and affect HEENT: NC/AT HR:irregular Resp:no increased effort of breathing Abdomen: Soft, nontender Results & Data Results & Data Vital Signs (Past 12 Hours) Vital Signs Temp Pulse Pulse Resp BP Pulse Ox O2 Del Method 04/22/23 10:54 81 04/22/23 09:01 79 18 131/68 94 Nasal Cannula 04/22/23 07:52 36.3 C L 51 L 18 137/68 93 Nasal Cannula 04/22/23 07:33 Nasal Cannula 04/22/23 03:26 36.8 C 76 20 154/68 H 91 Nasal Cannula O2 Flow Rate 04/22/23 10:54 04/22/23 09:01 2 04/22/23 07:52 3 04/22/23 07:33 2 04/22/23 03:26 3 (1) CHF (congestive heart failure) Heart failure chronicity: acute Heart failure type: unspecified Qualified Code(s): I50.9 - Heart failure, unspecified
[2023-04-22] MEDS: oxyCODONE HCL IR 5 MG TAB (IMMEDIATE RELEASE) PO PRN ×2 (12:49→17:49)
[2023-04-22] MEDS: MAGNESIUM SULFATE / D5W 1 GM/100 ML BAG IV SCH ×3 (14:36→19:04)
[2023-04-22] MEDS: FUROSEMIDE INJ 20 MG/2 ML VIAL IV SCH (14:36)
[2023-04-22] MEDS ORDERED: OPTIRAY 320 100ml IV ONE (15:20)
--- NOTE | 2023-04-22 15:21 | XRay Report ---
XR lumbar spine 2-3V CLINICAL HISTORY: worsening back pain TECHNIQUE: 3 views of the lumbar spine were obtained. Comparison: None available at the time of this dictation. FINDINGS: IVC filter is seen. Right hip total arthroplasty is seen. Degenerative changes are seen in the lumbar spine with osteophyte formation and disc space narrowing. The alignment is normal. Vascular calcific ations are noted. Prominent colonic gas is seen. IMPRESSION: Degenerative changes as above without acute fracture or subluxation. ACT 112: Negative or not required by law. Electronically signed by: Chandrakant Head M.D. 04/22/2023 3:20 PM
--- NOTE | 2023-04-22 15:22 | XRay Report ---
XR sacrum coccyx min 2V CLINICAL HISTORY: worsening back pain TECHNIQUE: 2 views of the sacrococcygeal spine were obtained. Comparison: None available at the time of this dictation. FINDINGS: No fractures or subluxations are identified. Alignment appears unremarkable. IMPRESSION: No evidence of acute fracture or subluxation. ACT 112: Negative or not required by law. Electronically signed by: Chandrakant Head M.D. 04/22/2023 3:21 PM
--- NOTE | 2023-04-22 16:25 | CT Scan Report ---
CT abd pelvis IV con only CLINICAL HISTORY: repeat, r/o retroperitoneal bleed, worse back pain TECHNIQUE: Helical axial images of the abdomen and pelvis were obtained and displayed. Automated dose lowering techniques and/or adjustment according to patient size were utilized for this exam. This e xam was performed with intravenous contrast. CT DOSE: 1409.41 mGy.cm COMPARISON: Comparison is made to CT abdomen pelvis 04/21/2023 FINDINGS: Lower chest: Bilateral pleural effusions with associated atelectasis. Mitral annular calcification w ith atherosclerotic disease in the coronary arteries. Liver: Unremarkable. No focal lesions are seen. Gallbladder and biliary tree: Patient is status post cholecystectomy. No intra- or extrahepatic bilia ry ductal dilation. Pancreas: Unremarkable, no focal lesions. Spleen: Unremarkable. Adrenals: Unremarkable. Kidneys and ureters: Renal cysts are seen. Bladder: Unremarkable. Reproductive organs: Prostatomegaly is seen. Bowel: The appendix is normal. A small hiatal hernia is seen. Lymph nodes Retroperitoneal: Unremarkable. Pelvic: Unremarkable. Mesenteric: Unremarkable. Peritoneum: No acute abnormality, in particular no evidence of pneumoperitoneum. Vessels: IVC filter is seen. Atherosclerotic calcifications are noted. Abdominal wall: A fat-containing umbilical hernia is seen. Subcutaneous fat stranding is unchanged fr om prior exam. Bones: Degenerative changes in the visualized spine. Right hip total arthroplasty noted. Redemonstrat ion of a few tiny sclerotic foci. IMPRESSION: 1. No acute abnormalities and in particular no evidence of retroperitoneal hemorrhage. 2. Postsurgical changes of cul-de-sac fluid. 3. Small bilateral pleural effusions. ACT 112: Negative or not required by law. Electronically signed by: Chandrakant Head M.D. 04/22/2023 4:22 PM
--- NOTE | 2023-04-22 18:12 | Electrocardiogram Report ---
Test Reason : Blood Pressure : / mmHG Vent. Rate : 076 BPM Atrial Rate : 000 BPM P-R Int : 000 ms QRS Dur : 098 ms QT Int : 450 ms P-R-T Axes : 000 023 155 degrees QTc Int : 506 ms Atrial fibrillation Nonspecific T wave abnormality Prolonged QT Abnormal ECG When compared with ECG of 02-NOV-2015 22:04, Atrial fibrillation has replaced Sinus rhythm ST no longer elevated in Lateral leads Nonspecific T wave abnormality, worse in Lateral leads Confirmed by Neftali Santillan ([id number]) on 04/22/2023 6:12:06 PM Referred By: REFERRED SELF Confirmed By:Neftali Santillan
[2023-04-22] MEDS: EZETIMIBE 10 MG TAB PO SCH (20:40)
[2023-04-22] MEDS: SIMVASTATIN 40 MG TAB PO SCH (20:41)
[2023-04-22] MEDS: MAGNESIUM OXIDE 400 MG TAB PO SCH (20:48)
[2023-04-22] MEDS ORDERED: LANTUS PER UNIT CHARGE SQ SCH (21:00)
--- NOTE | 2023-04-22 22:21 | Electrocardiogram Report ---
Test Reason : Blood Pressure : / mmHG Vent. Rate : 064 BPM Atrial Rate : 119 BPM P-R Int : 000 ms QRS Dur : 098 ms QT Int : 446 ms P-R-T Axes : 000 014 072 degrees QTc Int : 460 ms Atrial fibrillation Abnormal ECG When compared with ECG of 21-APR-2023 08:10, (unconfirmed) No significant change was found Confirmed by Neftali Santillan ([id number]) on 04/22/2023 10:20:53 PM Referred By: REFERRED SELF Confirmed By:Neftali Santillan
[2023-04-23] MEDS: ACETAMINOPHEN 325 MG TAB PO PRN (03:08)
[2023-04-23] MEDS: DICLOFENAC SOD 1% GEL 100 GM TUBE EXT SCH ×3 (05:10→18:02)
[2023-04-23 06:46] LABS: Basophils # (auto) 0.03 K/uL (0.00-0.20); Basophils % (auto) 0.4 %; Eosinophils # (auto) 0.11 K/uL (0.00-0.50); Eosinophils % (auto) 1.4 %; Hematocrit (blood only) 32.5 % (42.0-52.0); Hemoglobin 10.1 g/dl (14.0-18.0); Immature Granulocytes # (auto) 0.02 K/uL (0.01-0.20); Immature Granulocytes % (auto) 0.3 %; Lymphocytes # (auto) 0.95 K/uL (1.20-3.40); Lymphocytes % (auto) 12.1 %; Mean Corpuscular Hemoglobin 27.4 pg (25.0-34.0); Mean Corpuscular Hgb Conc 31.1 g/dL (32.0-36.0); Mean Corpuscular Volume 88.1 fL (80.0-100.0); Mean Platelet Volume 11.9 fL (9.4-12.4); Monocytes % (auto) 11.5 %; Neutrophils # (auto) 5.81 K/uL (1.40-6.50); Neutrophils % (auto) 74.3 %; Platelet Count 172 K/uL (130-400); RDW Coefficient of Variation 16.2 % (11.5-14.5); Red Blood Count 3.69 M/uL (4.70-6.10); White Blood Count 7.82 K/ul (4.8-10.8)
[2023-04-23 07:01] LABS: Albumin Globulin Ratio 0.9 (0.9-2); Albumin Level 3.2 gm/dl (3.4-5.0); Bilirubin,Total 1.1 mg/dl (0.2-1.0); Calcium 8.9 mg/dl (8.6-10.3); Est GFR (African American) 67.4 ml/min; Est GFR (Non-African American) 58.1 ml/min; Globulin 3.6 gm/dl (2.5-4.0); Magnesium 1.6 mg/dl (1.7-2.4); Phosphorus 2.7 mg/dl (2.5-4.9); Potassium 4.2 mmol/L (3.5-5.1); Total Protein 6.8 gm/dl (6.0-8.3)
[2023-04-23 07:22] LABS: INR 1.4 (0.9-1.1); Prothrombin Time 14.6 Seconds (9.0-12.0)
[2023-04-23] MEDS: MAGNESIUM OXIDE 400 MG TAB PO SCH ×2 (08:42→21:05)
[2023-04-23] MEDS: METOPROLOL SUCC 50MG EXT REL TAB PO SCH ×2 (08:42→21:05)
--- NOTE | 2023-04-23 08:42 | Pharmacy Report ---
Pharmacy Glycemic Short Note 2 - Date of Service April 23, 2023 - Glycemic Short BSG Results (Last 24 hours): 04/22/23 04/22/23 04/22/23 12:02 17:23 20:21 Glucose POC Glucose 134 H 169 H 180 H 04/23/23 04/23/23 05:26 07:59 Glucose 140 H POC Glucose 138 H OUTPATIENT ANTIDIABETIC REGIMEN: * Levemir 20 units SQ HS * Novolog 0-20 units SS SQ TIDM * Metformin 1 gm PO BID HbA1c: 7.3% (04/22/23) ASSESSMENT: 04/23/23: * BSGs trended up throughout the day yesterday * Will tighten Novolog parameters today in light of this * Received 16 units of insulin (10 units of basal and 6 units of prandi al/correctional bolus) * Fasting BSG of 138 mg/dL today - allow for increased basal dose today 04/21/23: * 83 y/o M admitted for low back pain. He has history of Type 2 diabetes managed on basal and bolus insulins and oral Metformin at home. * Patient took his last dose of basal insulin prior to admission yesterday. Slightly reduced dose of basal (stress of 2) ordered for HS. * Novolog parameters ordered based off of his home doses. This may need tightened if BSGs are trending up. PLAN FOR INPATIENT GLYCEMIC CONTROL: * Hold outpatient oral diabetes medications * Basal insulin * Lantus 10-15 units SQ HS (see EHR for details) * Bolus insulin * NovoLog per scale ACHS or Q6hrs while NPO * Goal Range: Low 120 mg/dL - High 150 mg/dL * Correction Factor: 25 mg/dL/unit * Nutritional / Prandial insulin per carb ratio of 1 unit per 9 grams CHO consumed
[2023-04-23] MEDS: TERAZOSIN HCL 1 MG CAP PO SCH (08:43)
[2023-04-23] MEDS: allopurinoL 100 MG TAB PO SCH (08:43)
[2023-04-23] MEDS: DORZOLAMIDE/TIMOLOL 22.3/6.8MG/ML 10 ML BTL OPL SCH ×2 (08:44→21:05)
[2023-04-23] MEDS: BRIMONIDINE TARTRATE 0.2% 5ML OPL SCH ×2 (08:44→21:04)
[2023-04-23] MEDS: AMMONIUM LACTATE 12% LOTION 225 GM BTL EXT SCH ×2 (08:45→21:04)
[2023-04-23] MEDS: INSULIN ASPART PER UNIT CHARGE SC SCH ×4 (08:52→21:02)
[2023-04-23] MEDS: FUROSEMIDE 40 MG/4 ML VIAL IV SCH (08:54)
[2023-04-23] MEDS ORDERED: ASPIRIN 81 MG CHEW PO SCH (09:00)
--- NOTE | 2023-04-23 09:52 | Cardiology Progress Note ---
Date of Service April 23, 2023 Assessment & Plan (1) Diastolic heart failure due to valvular disease: (2) Hypoxia: (3) Mitral valve stenosis: (4) Atrial fibrillation: (5) S/P AVR: (6) S/P CABG x 2: Plan Complex 83-year-old male with chronic valvular heart disease status post remote aortic valve replacement with mechanical prosthesis, progressively worsening calcific mitral valve disease with moderate to severe mitral stenosis Prior paroxysmal atrial fibrillation Presents for noncardiac complaints but found to have findings consistent with congestive heart failure with bilateral pleural effusions and increased interstitial markings likely reflecting patient's worsening mitral valve disease as well as recurrent atrial fibrillation 1. Acute on chronic diastolic heart failure secondary to valvular disease, mitral stenosis: IV diuretics ordered would continue despite significant stasis edema profound volume overload not physically examined in x-ray and imaging findings likely reflect patient's elevated right heart pressures and mitral stenosis 2. Past paroxysmal atrial fibrillation now presenting in atrial fibrillation. Unlikely return to sinus rhythm. High risk for continuation of sotalol we will discontinue. Increase metoprolol succinate to 100 mg twice per day 3. Valvular heart disease with normally functioning mechanical prosthesis aortic valve position, moderate to severe mitral stenosis 4. Elevated INR: Suspect being aggravated by right heart pressure elevation, right heart failure. If back pain persists repeat imaging may be warranted 04/22/2023 Improved from cardiac standpoint We will continue IV diuretics and additional day Continue with back pain may warrant additional imaging given elevated INR and consistent symptoms, acute onset duration 9 to 10 days 04/23/2023 Respiratory status and lower extremity edema has improved. Atrial fibrillation rates are controlled on current dosing metoprolol succinate. No likelihood of returning to sinus rhythm antiarrhythmic We will discontinue IV furosemide after doses today Begin oral dosing in a.m. Add spironolactone 12.5 mg daily INR pending Admission and Anticipated Discharge Date Admission Date: April 21, 2023 Subjective Patient seen and examined, chart, medications, telemetry reviewed. Still with low back pain. No respiratory distress. Edema improved. Physical Exam Constitutional: + obese; no acute distress ENMT: external ear and nose normal, oropharynx normal Neck: trachea midline, no thyromegaly Respiratory: normal respiratory effort, lungs clear to auscultation Cardiovascular: Rate/Rhythm: + irregularly irregular Heart Sounds: + murmur Vessels: no JVD Extremities: + edema (1+ with chronic stasis changes, improved) [place] mechanical valve sounds, no diastolic murmur Gastrointestinal (Abdomen): normal bowel sounds, soft, nontender, no hepatosplenomegaly Musculoskeletal: no cyanosis or clubbing, extremities motor strength 5/5 Results & Data Vital Signs (Past 12 Hours) Vital Signs Temp Pulse Pulse Resp BP Pulse Ox O2 Del Method 04/23/23 08:00 Nasal Cannula 04/23/23 07:55 36.7 C 86 18 153/67 H 93 Room Air 04/23/23 03:00 36.1 C L 88 20 126/78 94 Nasal Cannula 04/22/23 23:09 36.4 C L 73 16 135/73 Nasal Cannula 04/22/23 22:01 76 O2 Flow Rate 04/23/23 08:00 04/23/23 07:55 04/23/23 03:00 2 04/22/23 23:09 3 04/22/23 22:01 Laboratory Results Laboratory Results - last 24 hr 04/22/23 04/22/23 04/22/23 10:39 12:02 17:23 WBC RBC Hgb Hct MCV MCH MCHC RDW Std Deviation RDW Coeff of Radha Plt Count MPV Immature Gran % (Auto) Neut % (Auto) Lymph % (Auto) [place] % (Auto) Eos % (Auto) Baso % (Auto) Neut # (Auto) Lymph # (Auto) [place] # (Auto) Eos # (Auto) Baso # (Auto) Immature Gran # (Auto) PT 52.6 H INR 5.3 H Sodium Potassium Chloride Carbon Dioxide Anion Gap BUN Creatinine Est Cr Clr Drug Dosing Est GFR ( Amer) Est GFR (Non-Af Amer) BUN/Creatinine Ratio Glucose POC Glucose 134 H 169 H Calcium Ionized Calcium Phosphorus Magnesium Total Bilirubin AST ALT Alkaline Phosphatase Total Protein Albumin Globulin Albumin/Globulin Ratio 04/22/23 04/23/23 04/23/23 20:21 05:26 07:59 WBC 7.82 RBC 3.69 L Hgb 10.1 L Hct 32.5 L MCV 88.1 MCH 27.4 MCHC 31.1 L RDW Std Deviation 52.0 H RDW Coeff of Radha 16.2 H Plt Count 172 MPV 11.9 Immature Gran % (Auto) 0.3 Neut % (Auto) 74.3 Lymph % (Auto) 12.1 [place] % (Auto) 11.5 Eos % (Auto) 1.4 Baso % (Auto) 0.4 Neut # (Auto) 5.81 Lymph # (Auto) 0.95 L [place] # (Auto) 0.90 H Eos # (Auto) 0.11 Baso # (Auto) 0.03 Immature Gran # (Auto) 0.02 PT 14.6 H INR 1.4 H Sodium 135 L Potassium 4.2 Chloride 102 Carbon Dioxide 28 Anion Gap 5 BUN 23 Creatinine 1.15 Est Cr Clr Drug Dosing 60.0 Est GFR ( Amer) 67.4 Est GFR (Non-Af Amer) 58.1 BUN/Creatinine Ratio 20.0 Glucose 140 H POC Glucose 180 H 138 H Calcium 8.9 Ionized Calcium 1.21 Phosphorus 2.7 Magnesium 1.6 L Total Bilirubin 1.1 H AST 28 ALT 24 Alkaline Phosphatase 112 H Total Protein 6.8 Albumin 3.2 L Globulin 3.6 Albumin/Globulin Ratio 0.9
[2023-04-23] MEDS: SPIRONOLACTONE 12.5 MG TAB PO SCH (10:51)
[2023-04-23] MEDS: oxyCODONE HCL IR 5 MG TAB (IMMEDIATE RELEASE) PO PRN ×3 (10:54→22:02)
--- NOTE | 2023-04-23 13:10 | Electrocardiogram Report ---
Test Reason : Blood Pressure : / mmHG Vent. Rate : 071 BPM Atrial Rate : 234 BPM P-R Int : 000 ms QRS Dur : 096 ms QT Int : 426 ms P-R-T Axes : 000 019 111 degrees QTc Int : 462 ms Atrial fibrillation Nonspecific T wave abnormality Prolonged QT Abnormal ECG When compared with ECG of 22-APR-2023 04:37, No significant change was found Confirmed by Andrew Kim ([id number]) on 04/23/2023 1:09:41 PM Referred By: REFERRED SELF Confirmed By:Andrew Kim
--- NOTE | 2023-04-23 18:25 | Hospitalist Progress Note ---
Date of Service April 23, 2023 Assessment & Plan (1) CHF (congestive heart failure): Plan Patient came in with low back pain, was found to be hypoxic at 78% on room air in ED. CTA chest was done which showed pulmonary edema and is concerning for questionable small blood clot. He is being managed for the following: Acute on chronic diastolic heart failure Patient hypoxic on room air, requiring 3 L oxygen on admission CT chest with pulmonary edema. BNP 621. Patient reports taking his home Lasix 40 mg daily. Continue Lasix 40 mg IV daily in the morning and 20 mg IV in the afternoon. Echo with EF 60-65%, LVH, RV elevation/overload, dilated atria, mod-severe mitral stenosis, mild-mod mitral regurg and mod tricuspid regurg. Cardiology consult-appreciate recs -Continue with IV diuretics -metoprolol succ 100mg BID for atrial fibrillation Heart healthy diet, less than 2 g sodium a day. Strict I's and O's, weights. Monitor replete electrolytes. Potassium added. Clinically much better and is still requiring about 3 L to maintain saturation Denies any shortness of breath and no chest pain at rest We will continue the current regimen of diuretics Atrial Fibrillation Currently in atrial fibrillation On metoprolol succinate, dose increased to 100mg BID Usually on coumadin, currently on hold with supratherapeutic INR INR went up to 7.2 today, received one dose of IV Vit K 2.5mg INR 5.3 after Vit K, continue to hold coumadin, AM recheck Will restart Coumadin from today Supratherapeutic INR: Outpatient chart review with INR of 9.0 on 03/26/2023 Admitting INR of 6.5 INR went up to 7.2 today, received one dose of IV Vit K 2.5mg Per patient, he takes Coumadin half of 7.5 mg tablet every day except and Sunday. Hold Coumadin. INR in AM. No signs of bleeding at this time however back pain persistent and worsening (see below) Hgb stable. INR is 1.4 today-we will start Coumadin from today Low back pain Persistent, worsening Given persistence and significantly elevated INR, concern for bleeding, retroperitoneal? CT abd/pelvis reviewed from 04/21 MRI lumbar spine ordered as well as repeat CT abd/pelvis to r/o the above EXTR of the spine is consistent with degenerative changes Doubt any acute nerve compression Reassured we will try local diclofenac and warm compression Abnormal CTA chest: Concern for a blood clot D-dimer elevated at 940 US venous Doppler BLE- no noted DVT though limited by edema Consider repeat CTA chest PE protocol in 2 days to confirm blood clot Patient does have history of IVC filter placed about 20 years ago per patient. INR currently supratherapeutic at 5.3, holding coumadin at this time. Doubt any pulmonary embolism given the INR was supratherapeutic on admission and required vitamin K Thyroid nodules Multiple thyroid nodules noted, thyroid ultrasound recommended, can be done as an outpatient after discharge. 8 mm left apex pulmonary nodule and 6 mm left lower lobe pulmonary nodule noted, follow-up CT scan in 3 months recommended. DMII hemoglobin a1c of 7.2 Hold home meds Basal/bolus while hospitalized Other chronic medical conditions: continue other home meds Diet: DMII, HH, Low sodium DVT prophylaxis: Patient is supratherapeutic INR. Full code Dispo: consider ordering PT/OT once INR therapeutic, in an effort to be extra cautious about potentially falling with activity. We will get PT and OT evaluation Admission and Anticipated Discharge Date Admission Date: April 21, 2023 Subjective 04/23/2023 The patient was seen and examined in telemetry unit in presence of the son He has been feeling much better-denies any respiratory symptoms at rest Still complains of back pain without radiation and are without any bladder and or bowel issue Review of Systems Review of Systems: All systems reviewed and are unremarkable except as noted below Physical Exam Physical Exam: Lying in bed comfortably Constitutional: well developed, well nourished, + ill appearing and + obese Eyes: PERRL, conjunctivae normal, anicteric sclerae ENMT: external ear and nose normal, oropharynx normal Neck: trachea midline, no thyromegaly Respiratory: no respiratory distress Auscultation: + diminished lung sounds and + crackles (Minimal crackles at the bases) Cardiovascular: Rate/Rhythm: + irregularly irregular; not tachycardic Heart Sounds: normal S1, normal S2 and + murmur Extremities: + edema (Trace edema bilaterally) Gastrointestinal (Abdomen): Inspection/Auscultation: normal bowel sounds; abdomen not distended Percussion/Palpation: abdomen soft; abdomen nontender Musculoskeletal: No acute arthritis involving any of the joint Neurologic: normal touch/pain/proprioception and + meningeal signs; not confused Lymphatic: no cervical or axillary lymphadenopathy Results & Data Results & Data Vital Signs (Past 12 Hours) Vital Signs Temp Pulse Pulse Resp BP BP Pulse Ox 04/23/23 17:34 65 04/23/23 15:17 36.6 C 67 16 131/69 100 04/23/23 13:50 73 04/23/23 13:48 36.7 C 74 14 122/68 95 04/23/23 11:54 36.6 C 73 18 103/61 95 04/23/23 08:00 04/23/23 07:55 36.7 C 86 18 153/67 H 93 O2 Del Method O2 Flow Rate 04/23/23 17:34 04/23/23 15:17 Nasal Cannula 3 04/23/23 13:50 04/23/23 13:48 Nasal Cannula 3 04/23/23 11:54 Nasal Cannula 2.0 04/23/23 08:00 Nasal Cannula 04/23/23 07:55 Room Air Laboratory Results Short CBC 04/23/23 Range/Units 05:26 WBC 7.82 (4.8-10.8) K/ul Hgb 10.1 L (14.0-18.0) g/dl Hct 32.5 L (42.0-52.0) % Plt Count 172 (130-400) K/uL BMP 04/23/23 05:26 Sodium 135 L Potassium 4.2 Chloride 102 Carbon Dioxide 28 BUN 23 Creatinine 1.15 Glucose 140 H Calcium 8.9 Liver Function 04/23/23 Range/Units 05:26 Total Bilirubin 1.1 H (0.2-1.0) mg/dl AST 28 (13-39) U/L ALT 24 (7-52) U/L Alkaline Phosphatase 112 H (34-104) U/L Albumin 3.2 L (3.4-5.0) gm/dl Medications Administered Current Inpatient Medications Acetaminophen (Acetaminophen 325 Mg Tab) 650 mg PO Q4H PRN PRN Reason: Pain or Fever Stop: 05/21/23 10:30 Last Admin: 04/23/23 03:08 Dose: 650 mg Al Hydrox/Mg Hydrox/Simethicone (Aluminum/Magnesium Susp 30 Ml Udc) 15 ml PO Q4H PRN PRN Reason: Dyspepsia Stop: 05/21/23 10:30 Last Admin: 04/22/23 16:48 Dose: 15 ml Allopurinol (Allopurinol 100 Mg Tab) 200 mg PO QAM [facility] Stop: 05/22/23 08:59 Last Admin: 04/23/23 08:43 Dose: 200 mg Aspirin (Aspirin 81 Mg Chew) 81 mg PO [id number] [facility] Stop: 05/23/23 08:59 Last Admin: 04/23/23 08:52 Dose: 81 mg Bismuth Subsalicylate (Bismuth Subsalicylate Susp) 30 ml PO DAILY PRN PRN Reason: Diarrhea Stop: 05/21/23 12:39 Brimonidine Tartrate (Brimonidine Tartrate 0.2% 5ml) 1 drops OPL BID [facility] Stop: 05/21/23 20:59 Last Admin: 04/23/23 08:44 Dose: 1 drops Dextrose (Dextrose 50% 50 Ml Syringe) 25 - 50 ml IV UD PRN; Protocol PRN Reason: Hypoglycemia Protocol Stop: 05/21/23 10:30 Diclofenac Sodium (Diclofenac Sod 1% Gel 100 Gm Tube) 4 gm EXT Q6H RONAN; Protocol Stop: 05/21/23 11:44 Last Admin: 04/23/23 12:57 Dose: 4 gm Dorzolamide/Timolol (Dorzolamide/Timolol 22.3/6.8mg/Ml 10 Ml Btl) 1 drops OPL BID [facility] Stop: 05/21/23 20:59 Last Admin: 04/23/23 08:44 Dose: 1 drops Ezetimibe (Ezetimibe 10 Mg Tab) 10 mg PO HS [facility] Stop: 05/21/23 22:14 Last Admin: 04/22/23 20:40 Dose: 10 mg Furosemide (Furosemide 40 Mg/4 Ml Vial) 40 mg IV DAILY RONAN Stop: 05/22/23 08:59 Last Admin: 04/23/23 08:54 Dose: 40 mg Glucagon (Glucagon For Inj 1 Mg Vial) 1 mg SQ UD PRN; Protocol PRN Reason: Hypoglycemia Protocol Stop: 05/21/23 10:30 Glucose (Glucose 10 Tab/Tube) 4 - 8 tab PO UD PRN; Protocol PRN Reason: Hypoglycemia Treatment Stop: 05/21/23 10:30 Glucose (Glucose 40% Gel 15 Gm Tube) 15 - 30 gm PO UD PRN; Protocol PRN Reason: Hypoglycemia Protocol Stop: 05/21/23 10:30 Insulin Aspart (Insulin Aspart Per Unit Charge) 0 units SC ACHS [facility] Stop: 05/21/23 11:29 Last Admin: 04/23/23 12:55 Dose: 5 units Insulin Glargine (Lantus Per Unit Charge) 0 units SQ HS [facility]; Protocol Stop: 05/23/23 20:59 Lactic Acid (Ammonium Lactate 12% Lotion 225 Gm Btl) 1 gm EXT BID [facility] Stop: 05/21/23 10:29 Last Admin: 04/23/23 08:45 Dose: 1 gm Magnesium Hydroxide (Magnesium Hydroxide Susp 30 Ml Udc) 30 ml PO Q12H PRN PRN Reason: Constipation Stop: 05/21/23 10:30 Magnesium Oxide (Magnesium Oxide 400 Mg Tab) 400 mg PO BID [facility] Stop: 05/22/23 20:59 Last Admin: 04/23/23 08:42 Dose: 400 mg Metoprolol Succinate (Metoprolol Succ 50mg Ext Rel Tab) 100 mg PO BID [facility] Stop: 05/21/23 13:29 Last Admin: 04/23/23 08:42 Dose: 100 mg Miscellaneous (Carbohydrates For Hypoglycemia ) 15 - 30 gm PO UD PRN PRN Reason: Hypoglycemia Protocol Stop: 05/21/23 10:30 Miscellaneous Information (Pharmacy Glycemic Mgmt Consult) 1 each N/A UD PRN PRN Reason: Consult Stop: 05/21/23 10:30 Oxycodone HCl (Oxycodone Hcl Ir 5 Mg Tab (Immediate Release)) 5 - 10 mg PO QID PRN PRN Reason: Pain Stop: 05/06/23 05:59 Last Admin: 04/23/23 17:59 Dose: 10 mg Polyethylene Glycol (Polyethylene (Miralax) 17 Gm Pack) 17 gm PO DAILY PRN PRN Reason: Constipation Stop: 05/22/23 16:56 Simvastatin (Simvastatin 40 Mg Tab) 40 mg PO HS [facility] Stop: 05/21/23 22:14 Last Admin: 04/22/23 20:41 Dose: 40 mg Spironolactone (Spironolactone 12.5 Mg Tab) 12.5 mg PO DAILY [facility] Stop: 05/23/23 10:14 Last Admin: 04/23/23 10:51 Dose: 12.5 mg Terazosin HCl (Terazosin Hcl 1 Mg Cap) 2 mg PO DAILY [facility] Stop: 05/22/23 08:59 Last Admin: 04/23/23 08:43 Dose: 2 mg Travoprost (Travoprost Z 0.004% Oph Soln 2.5 Ml Btl) 1 drops OPB HS [facility] Stop: 05/23/23 20:59 (1) CHF (congestive heart failure) Heart failure chronicity: acute Heart failure type: unspecified Qualified Code(s): I50.9 - Heart failure, unspecified
[2023-04-23] MEDS: LANTUS PER UNIT CHARGE SQ SCH (21:02)
[2023-04-23] MEDS: WARFARIN SOD 1.25 MG TAB PO SCH (21:03)
[2023-04-23] MEDS: EZETIMIBE 10 MG TAB PO SCH (21:06)
[2023-04-23] MEDS: SIMVASTATIN 40 MG TAB PO SCH (21:07)
[2023-04-23] MEDS: TRAVOPROST Z 0.004% OPH SOLN 2.5 ML BTL OPB SCH (21:08)
--- NOTE | 2023-04-23 22:52 | Communication Note ---
Date of Service: April 23, 2023 Gross hematuria noted following traumatic Harper catheter insertion as per RN. Patient without pain complaints. AP Traumatic hematuria H&H now Hold aspirin and Coumadin for now
[2023-04-23 23:11] LABS: Hematocrit (blood only) 32.7 % (42.0-52.0); Hemoglobin 9.9 g/dl (14.0-18.0)
[2023-04-24] MEDS: DICLOFENAC SOD 1% GEL 100 GM TUBE EXT SCH ×4 (00:40→18:18)
[2023-04-24 01:29] LABS: Appearance Urine Turbid (Clear); Bilirubin Urine Negative (Negative); Blood Urine 3+ (Negative); Color Urine Red; Glucose Urine UA Negative (Negative); Ketones Urine Negative (Negative); Leukocyte Esterase Urine Negative (Negative); Nitrite Urine Negative (Negative); Protein Urine 3+ (Negative); Urobilinogen Urine Negative (Negative); pH Urine 5.5 (4.5-7.5)
[2023-04-24 01:31] LABS: Epithelial Cell Urine 0-5 /lpf (0-5); RBC Urine >30 /hpf (0-4)
[2023-04-24 01:32] LABS: Bacteria Urine Negative (Negative)
[2023-04-24 05:13] LABS: Basophils # (auto) 0.03 K/uL (0.00-0.20); Basophils % (auto) 0.4 %; Eosinophils # (auto) 0.18 K/uL (0.00-0.50); Eosinophils % (auto) 2.5 %; Hematocrit (blood only) 32.6 % (42.0-52.0); Hemoglobin 9.9 g/dl (14.0-18.0); Immature Granulocytes # (auto) 0.04 K/uL (0.01-0.20); Immature Granulocytes % (auto) 0.6 %; Lymphocytes # (auto) 0.88 K/uL (1.20-3.40); Lymphocytes % (auto) 12.2 %; Mean Corpuscular Hemoglobin 27.2 pg (25.0-34.0); Mean Corpuscular Hgb Conc 30.4 g/dL (32.0-36.0); Mean Corpuscular Volume 89.6 fL (80.0-100.0); Mean Platelet Volume 11.4 fL (9.4-12.4); Monocytes # (auto) 0.88 K/uL (0.11-0.59); Monocytes % (auto) 12.2 %; Neutrophils # (auto) 5.22 K/uL (1.40-6.50); Neutrophils % (auto) 72.1 %; Platelet Count 162 K/uL (130-400); RDW Standard Deviation 53.3 fL (36.4-46.3); Red Blood Count 3.64 M/uL (4.70-6.10); White Blood Count 7.23 K/ul (4.8-10.8)
[2023-04-24 05:32] LABS: Albumin Globulin Ratio 0.8 (0.9-2); BUN Creatinine Ratio 20.8 (10-20); Bilirubin,Total 0.8 mg/dl (0.2-1.0); Calcium 9.1 mg/dl (8.6-10.3); Creatinine Clr Calc Pharmacy 55.2 ml/min; Est GFR (African American) 60.9 ml/min; Est GFR (Non-African American) 52.5 ml/min; Globulin 3.7 gm/dl (2.5-4.0); Magnesium 1.6 mg/dl (1.7-2.4); Phosphorus 2.9 mg/dl (2.5-4.9); Potassium 3.9 mmol/L (3.5-5.1); Total Protein 6.7 gm/dl (6.0-8.3)
[2023-04-24 05:43] LABS: INR 1.6 (0.9-1.1); Prothrombin Time 16.9 Seconds (9.0-12.0)
[2023-04-24] MEDS: MAGNESIUM OXIDE 400 MG TAB PO SCH ×2 (08:21→20:28)
[2023-04-24] MEDS: DORZOLAMIDE/TIMOLOL 22.3/6.8MG/ML 10 ML BTL OPL SCH ×2 (08:22→20:26)
[2023-04-24] MEDS: allopurinoL 100 MG TAB PO SCH (08:22)
[2023-04-24] MEDS: SPIRONOLACTONE 12.5 MG TAB PO SCH (08:22)
[2023-04-24] MEDS: TERAZOSIN HCL 1 MG CAP PO SCH (08:22)
[2023-04-24] MEDS: BRIMONIDINE TARTRATE 0.2% 5ML OPL SCH ×2 (08:23→20:26)
[2023-04-24] MEDS: METOPROLOL SUCC 50MG EXT REL TAB PO SCH ×2 (08:23→20:29)
[2023-04-24] MEDS: AMMONIUM LACTATE 12% LOTION 225 GM BTL EXT SCH ×2 (08:24→20:24)
[2023-04-24] MEDS: FUROSEMIDE 40 MG/4 ML VIAL IV SCH (08:28)
[2023-04-24] MEDS: oxyCODONE HCL IR 5 MG TAB (IMMEDIATE RELEASE) PO PRN ×3 (08:28→18:37)
[2023-04-24] MEDS: INSULIN ASPART PER UNIT CHARGE SC SCH ×4 (08:46→20:16)
--- NOTE | 2023-04-24 13:55 | Cardiology Progress Note ---
Date of Service April 24, 2023 Assessment & Plan (1) Diastolic heart failure due to valvular disease: (2) Hypoxia: (3) Mitral valve stenosis: (4) Atrial fibrillation: (5) S/P AVR: (6) S/P CABG x 2: Plan Complex 83-year-old male with chronic valvular heart disease status post remote aortic valve replacement with mechanical prosthesis, progressively worsening calcific mitral valve disease with moderate to severe mitral stenosis Prior paroxysmal atrial fibrillation Presents for noncardiac complaints but found to have findings consistent with congestive heart failure with bilateral pleural effusions and increased interstitial markings likely reflecting patient's worsening mitral valve disease as well as recurrent atrial fibrillation 1. Acute on chronic diastolic heart failure secondary to valvular disease, mitral stenosis: IV diuretics ordered would continue despite significant stasis edema profound volume overload not physically examined in x-ray and imaging findings likely reflect patient's elevated right heart pressures and mitral stenosis 2. Past paroxysmal atrial fibrillation now presenting in atrial fibrillation. Unlikely return to sinus rhythm. High risk for continuation of sotalol we will discontinue. Increase metoprolol succinate to 100 mg twice per day 3. Valvular heart disease with normally functioning mechanical prosthesis aortic valve position, moderate to severe mitral stenosis 4. Elevated INR: Suspect being aggravated by right heart pressure elevation, right heart failure. If back pain persists repeat imaging may be warranted 04/22/2023 Improved from cardiac standpoint We will continue IV diuretics and additional day Continue with back pain may warrant additional imaging given elevated INR and consistent symptoms, acute onset duration 9 to 10 days 04/23/2023 Respiratory status and lower extremity edema has improved. Atrial fibrillation rates are controlled on current dosing metoprolol succinate. No likelihood of returning to sinus rhythm antiarrhythmic We will discontinue IV furosemide after doses today Begin oral dosing in a.m. Add spironolactone 12.5 mg daily INR pending 04/24/2023 continues to improve hemodynamically however hematuria after Harper insertion last evening Issues include 1. Longstanding valvular disease status post mechanical AVR, calcific mitral valve stenosis patient warrants ongoing anticoagulation with warfarin 2. Persistent atrial fibrillation 3. Acute decompensated diastolic heart failure observed on ER presentation with back pain. Improving. We will discontinue IV furosemide after today's dose begin furosemide 40 mg twice daily continue spironolactone, Daily weights I's and O's and CHF instruction Admission and Anticipated Discharge Date Admission Date: April 21, 2023 Subjective Patient seen and examined, chart telemetry reviewed. No cardiac complaints with edema much improved no dyspnea Hematuria overnight Review of Systems Review of Systems: All systems reviewed & are unremarkable except as noted in Subjective Physical Exam Constitutional: + obese; no acute distress ENMT: external ear and nose normal, oropharynx normal Neck: trachea midline, no thyromegaly Respiratory: normal respiratory effort, lungs clear to auscultation Cardiovascular: Rate/Rhythm: + irregularly irregular Heart Sounds: + murmur Vessels: no JVD Extremities: + edema (1+ with chronic stasis changes, improved) Gastrointestinal (Abdomen): normal bowel sounds, soft, nontender, no hepatosplenomegaly Musculoskeletal: no cyanosis or clubbing, extremities motor strength 5/5 Results & Data Vital Signs (Past 12 Hours) Vital Signs Temp Pulse Resp BP Pulse Ox O2 Del Method O2 Flow Rate 04/24/23 12:03 36.6 C 76 19 131/75 98 Nasal Cannula 2.0 04/24/23 10:21 Nasal Cannula 2 04/24/23 08:19 36.6 C 81 18 153/77 H 98 Nasal Cannula 3 04/24/23 03:22 36.8 C 77 20 133/73 97 Nasal Cannula 3 Laboratory Results Laboratory Results - last 24 hr 04/23/23 04/23/23 04/23/23 16:49 20:01 22:56 WBC RBC Hgb 9.9 L Hct 32.7 L MCV MCH MCHC RDW Std Deviation RDW Coeff of Radha Plt Count MPV Immature Gran % (Auto) Neut % (Auto) Lymph % (Auto) Mcminn % (Auto) Eos % (Auto) Baso % (Auto) Neut # (Auto) Lymph # (Auto) Mcminn # (Auto) Eos # (Auto) Baso # (Auto) Immature Gran # (Auto) PT INR Sodium Potassium Chloride Carbon Dioxide Anion Gap BUN Creatinine Est Cr Clr Drug Dosing Est GFR ( Amer) Est GFR (Non-Af Amer) BUN/Creatinine Ratio Glucose POC Glucose 123 H 170 H Calcium Ionized Calcium Phosphorus Magnesium Total Bilirubin AST ALT Alkaline Phosphatase Total Protein Albumin Globulin Albumin/Globulin Ratio Urine Color Urine Appearance Urine pH Ur Specific [place] Urine Protein Urine Glucose (UA) Urine Ketones Urine Blood Urine Nitrite Urine Bilirubin Urine Urobilinogen Ur Leukocyte Esterase Urine RBC Urine WBC Ur Epithelial Cells Urine Bacteria 04/24/23 04/24/23 04/24/23 00:03 04:12 08:16 WBC 7.23 RBC 3.64 L Hgb 9.9 L Hct 32.6 L MCV 89.6 MCH 27.2 MCHC 30.4 L RDW Std Deviation 53.3 H RDW Coeff of Radha 16.0 H Plt Count 162 MPV 11.4 Immature Gran % (Auto) 0.6 Neut % (Auto) 72.1 Lymph % (Auto) 12.2 Mcminn % (Auto) 12.2 Eos % (Auto) 2.5 Baso % (Auto) 0.4 Neut # (Auto) 5.22 Lymph # (Auto) 0.88 L Mcminn # (Auto) 0.88 H Eos # (Auto) 0.18 Baso # (Auto) 0.03 Immature Gran # (Auto) 0.04 PT 16.9 H INR 1.6 H Sodium 134 L Potassium 3.9 Chloride 101 Carbon Dioxide 29 Anion Gap 4 BUN 26 H Creatinine 1.25 Est Cr Clr Drug Dosing 55.2 Est GFR ( Amer) 60.9 Est GFR (Non-Af Amer) 52.5 BUN/Creatinine Ratio 20.8 H Glucose 121 H POC Glucose 125 H Calcium 9.1 Ionized Calcium 1.22 Phosphorus 2.9 Magnesium 1.6 L Total Bilirubin 0.8 AST 27 ALT 23 Alkaline Phosphatase 121 H Total Protein 6.7 Albumin 3.0 L Globulin 3.7 Albumin/Globulin Ratio 0.8 L Urine Color Red Urine Appearance Turbid A Urine pH 5.5 Ur Specific [place] 1.020 Urine Protein 3+ H Urine Glucose (UA) Negative Urine Ketones Negative Urine Blood 3+ H Urine Nitrite Negative Urine Bilirubin Negative Urine Urobilinogen Negative Ur Leukocyte Esterase Negative Urine RBC >30 H Urine WBC 5-10 H Ur Epithelial Cells 0-5 Urine Bacteria Negative 04/24/23 12:01 WBC RBC Hgb Hct MCV MCH MCHC RDW Std Deviation RDW Coeff of Radha Plt Count MPV Immature Gran % (Auto) Neut % (Auto) Lymph % (Auto) Mcminn % (Auto) Eos % (Auto) Baso % (Auto) Neut # (Auto) Lymph # (Auto) Mcminn # (Auto) Eos # (Auto) Baso # (Auto) Immature Gran # (Auto) PT INR Sodium Potassium Chloride Carbon Dioxide Anion Gap BUN Creatinine Est Cr Clr Drug Dosing Est GFR ( Amer) Est GFR (Non-Af Amer) BUN/Creatinine Ratio Glucose POC Glucose 122 H Calcium Ionized Calcium Phosphorus Magnesium Total Bilirubin AST ALT Alkaline Phosphatase Total Protein Albumin Globulin Albumin/Globulin Ratio Urine Color Urine Appearance Urine pH Ur Specific [place] Urine Protein Urine Glucose (UA) Urine Ketones Urine Blood Urine Nitrite Urine Bilirubin Urine Urobilinogen Ur Leukocyte Esterase Urine RBC Urine WBC Ur Epithelial Cells Urine Bacteria
--- NOTE | 2023-04-24 15:29 | Hospitalist Progress Note ---
Date of Service April 24, 2023 Assessment & Plan (1) CHF (congestive heart failure): Plan Patient came in with low back pain, was found to be hypoxic at 78% on room air in ED. CTA chest was done which showed pulmonary edema and is concerning for questionable small blood clot. He is being managed for the following: Acute on chronic diastolic heart failure Patient hypoxic on room air, requiring 3 L oxygen on admission CT chest with pulmonary edema. BNP 621. Patient reports taking his home Lasix 40 mg daily. Continue Lasix 40 mg IV daily in the morning and 20 mg IV in the afternoon. Echo with EF 60-65%, LVH, RV elevation/overload, dilated atria, mod-severe mitral stenosis, mild-mod mitral regurg and mod tricuspid regurg. Cardiology consult-appreciate recs -Continue with IV diuretics -metoprolol succ 100mg BID for atrial fibrillation Heart healthy diet, less than 2 g sodium a day. Strict I's and O's, weights. Monitor replete electrolytes. Potassium added. Clinically much better and is still requiring about 3 L to maintain saturation Denies any shortness of breath and no chest pain at rest We will continue the current regimen of diuretics Noted to have questionable hematuria likely secondary to trauma with the Harper but seems to be clearing up Has been diuresing enough with IV furosemide-which will be changed to oral diuretics from tomorrow Atrial Fibrillation Currently in atrial fibrillation On metoprolol succinate, dose increased to 100mg BID Usually on coumadin, currently on hold with supratherapeutic INR INR went up to 7.2 today, received one dose of IV Vit K 2.5mg INR 5.3 after Vit K, continue to hold coumadin, AM recheck Will restart Coumadin from today He is rate is controlled Supratherapeutic INR: Outpatient chart review with INR of 9.0 on 03/26/2023 Admitting INR of 6.5 INR went up to 7.2 today, received one dose of IV Vit K 2.5mg Per patient, he takes Coumadin half of 7.5 mg tablet every day except and Sunday. Hold Coumadin. INR in AM. No signs of bleeding at this time however back pain persistent and worsening (see below) Hgb stable. INR is 1.4 today-we will start Coumadin from today INR is 1.6 as of today-continue current dose of Coumadin Low back pain Persistent, worsening Given persistence and significantly elevated INR, concern for bleeding, retroperitoneal? CT abd/pelvis reviewed from 04/21 MRI lumbar spine ordered as well as repeat CT abd/pelvis to r/o the above EXTR of the spine is consistent with degenerative changes Doubt any acute nerve compression Reassured we will try local diclofenac and warm compression Back pain is stable at rest and will get PT and OT evaluation Abnormal CTA chest: Concern for a blood clot D-dimer elevated at 940 US venous Doppler BLE- no noted DVT though limited by edema Consider repeat CTA chest PE protocol in 2 days to confirm blood clot Patient does have history of IVC filter placed about 20 years ago per patient. INR currently supratherapeutic at 5.3, holding coumadin at this time. Doubt any pulmonary embolism given the INR was supratherapeutic on admission and required vitamin K Thyroid nodules Multiple thyroid nodules noted, thyroid ultrasound recommended, can be done as an outpatient after discharge. 8 mm left apex pulmonary nodule and 6 mm left lower lobe pulmonary nodule noted, follow-up CT scan in 3 months recommended. DMII hemoglobin a1c of 7.2 Hold home meds Basal/bolus while hospitalized Other chronic medical conditions: continue other home meds Diet: DMII, HH, Low sodium DVT prophylaxis: Patient is supratherapeutic INR. Full code Dispo: consider ordering PT/OT once INR therapeutic, in an effort to be extra cautious about potentially falling with activity. We will get PT and OT evaluation-recommended rehab placement Admission and Anticipated Discharge Date Admission Date: April 21, 2023 Subjective 04/23/2023 The patient was seen and examined in telemetry unit in presence of the son He has been feeling much better-denies any respiratory symptoms at rest Still complains of back pain without radiation and are without any bladder and or bowel issue 04/24/2023 The patient was seen and examined in telemetry unit He has been stable and has been taking narcotic pain medications for the back pain and which is making him drowsy Denies any chest pain and/or palpitation and no shortness of breath at rest Review of Systems Review of Systems: All systems reviewed and are unremarkable except as noted below Physical Exam Physical Exam: Lying in bed comfortably Constitutional: well developed, well nourished, + ill appearing and + obese Eyes: PERRL, conjunctivae normal, anicteric sclerae ENMT: external ear and nose normal, oropharynx normal Neck: trachea midline, no thyromegaly Respiratory: no respiratory distress Auscultation: + diminished lung sounds and + crackles (Minimal crackles at the bases) Cardiovascular: Rate/Rhythm: + irregularly irregular; not tachycardic Heart Sounds: normal S1, normal S2 and + murmur Extremities: + edema (Trace edema bilaterally) Gastrointestinal (Abdomen): Inspection/Auscultation: normal bowel sounds; abdomen not distended Percussion/Palpation: abdomen soft; abdomen nontender Musculoskeletal: No acute arthritis involving any of the joint Neurologic: normal touch/pain/proprioception and + meningeal signs; not confused Lymphatic: no cervical or axillary lymphadenopathy Results & Data Results & Data Vital Signs (Past 12 Hours) Vital Signs Temp Pulse Resp BP Pulse Ox O2 Del Method O2 Flow Rate 04/24/23 12:03 36.6 C 76 19 131/75 98 Nasal Cannula 2.0 04/24/23 10:21 Nasal Cannula 2 04/24/23 08:19 36.6 C 81 18 153/77 H 98 Nasal Cannula 3 Laboratory Results Short CBC 04/23/23 04/24/23 Range/Units 22:56 04:12 WBC 7.23 (4.8-10.8) K/ul Hgb 9.9 L 9.9 L (14.0-18.0) g/dl Hct 32.7 L 32.6 L (42.0-52.0) % Plt Count 162 (130-400) K/uL BMP 04/24/23 04:12 Sodium 134 L Potassium 3.9 Chloride 101 Carbon Dioxide 29 BUN 26 H Creatinine 1.25 Glucose 121 H Calcium 9.1 Liver Function 04/24/23 Range/Units 04:12 Total Bilirubin 0.8 (0.2-1.0) mg/dl AST 27 (13-39) U/L ALT 23 (7-52) U/L Alkaline Phosphatase 121 H (34-104) U/L Albumin 3.0 L (3.4-5.0) gm/dl Urine 04/24/23 Range/Units 00:03 Urine Color Red Urine Appearance Turbid A (Clear) Urine pH 5.5 (4.5-7.5) Ur Specific [place] 1.020 (1.000-1.030) Urine Protein 3+ H (Negative) Urine Glucose (UA) Negative (Negative) Medications Administered Current Inpatient Medications Acetaminophen (Acetaminophen 325 Mg Tab) 650 mg PO Q4H PRN PRN Reason: Pain or Fever Stop: 05/21/23 10:30 Last Admin: 04/23/23 03:08 Dose: 650 mg Al Hydrox/Mg Hydrox/Simethicone (Aluminum/Magnesium Susp 30 Ml Udc) 15 ml PO Q4H PRN PRN Reason: Dyspepsia Stop: 05/21/23 10:30 Last Admin: 04/22/23 16:48 Dose: 15 ml Allopurinol (Allopurinol 100 Mg Tab) 200 mg PO QAM [facility] Stop: 05/22/23 08:59 Last Admin: 04/24/23 08:22 Dose: 200 mg Aspirin (Aspirin 81 Mg Chew) 81 mg PO MoWeFr@0900 [facility] Stop: 05/23/23 08:59 Last Admin: 04/23/23 08:52 Dose: 81 mg Bismuth Subsalicylate (Bismuth Subsalicylate Susp) 30 ml PO DAILY PRN PRN Reason: Diarrhea Stop: 05/21/23 12:39 Brimonidine Tartrate (Brimonidine Tartrate 0.2% 5ml) 1 drops OPL BID [facility] Stop: 05/21/23 20:59 Last Admin: 04/24/23 08:23 Dose: 1 drops Dextrose (Dextrose 50% 50 Ml Syringe) 25 - 50 ml IV UD PRN; Protocol PRN Reason: Hypoglycemia Protocol Stop: 05/21/23 10:30 Diclofenac Sodium (Diclofenac Sod 1% Gel 100 Gm Tube) 4 gm EXT Q6H RONAN; Protocol Stop: 05/21/23 11:44 Last Admin: 04/24/23 13:01 Dose: 4 gm Dorzolamide/Timolol (Dorzolamide/Timolol 22.3/6.8mg/Ml 10 Ml Btl) 1 drops OPL BID [facility] Stop: 05/21/23 20:59 Last Admin: 04/24/23 08:22 Dose: 1 drops Ezetimibe (Ezetimibe 10 Mg Tab) 10 mg PO HS [facility] Stop: 05/21/23 22:14 Last Admin: 04/23/23 21:06 Dose: 10 mg Furosemide (Furosemide 40 Mg Tab) 40 mg PO [id number] [facility]ON[facility] Stop: 05/24/23 16:59 Glucagon (Glucagon For Inj 1 Mg Vial) 1 mg SQ UD PRN; Protocol PRN Reason: Hypoglycemia Protocol Stop: 05/21/23 10:30 Glucose (Glucose 10 Tab/Tube) 4 - 8 tab PO UD PRN; Protocol PRN Reason: Hypoglycemia Treatment Stop: 05/21/23 10:30 Glucose (Glucose 40% Gel 15 Gm Tube) 15 - 30 gm PO UD PRN; Protocol PRN Reason: Hypoglycemia Protocol Stop: 05/21/23 10:30 Insulin Aspart (Insulin Aspart Per Unit Charge) 0 units SC ACHS [facility]ONAN Stop: 05/21/23 11:29 Last Admin: 04/24/23 13:00 Dose: 4 units Insulin Glargine (Lantus Per Unit Charge) 0 units SQ HS RONAN; Protocol Stop: 05/23/23 20:59 Last Admin: 04/23/23 21:02 Dose: 15 units Lactic Acid (Ammonium Lactate 12% Lotion 225 Gm Btl) 1 gm EXT BID [facility] Stop: 05/21/23 10:29 Last Admin: 04/24/23 08:24 Dose: 1 gm Magnesium Hydroxide (Magnesium Hydroxide Susp 30 Ml Udc) 30 ml PO Q12H PRN PRN Reason: Constipation Stop: 05/21/23 10:30 Magnesium Oxide (Magnesium Oxide 400 Mg Tab) 400 mg PO BID [facility] Stop: 05/22/23 20:59 Last Admin: 04/24/23 08:21 Dose: 400 mg Metoprolol Succinate (Metoprolol Succ 50mg Ext Rel Tab) 100 mg PO BID [facility] Stop: 05/21/23 13:29 Last Admin: 04/24/23 08:23 Dose: 100 mg Miscellaneous (Carbohydrates For Hypoglycemia ) 15 - 30 gm PO UD PRN PRN Reason: Hypoglycemia Protocol Stop: 05/21/23 10:30 Miscellaneous Information (Pharmacy Glycemic Mgmt Consult) 1 each N/A UD PRN PRN Reason: Consult Stop: 05/21/23 10:30 Oxycodone HCl (Oxycodone Hcl Ir 5 Mg Tab (Immediate Release)) 5 - 10 mg PO QID PRN PRN Reason: Pain Stop: 05/06/23 05:59 Last Admin: 04/24/23 12:59 Dose: 10 mg Polyethylene Glycol (Polyethylene (Miralax) 17 Gm Pack) 17 gm PO DAILY PRN PRN Reason: Constipation Stop: 05/22/23 16:56 Polymyxin/Trimethoprim Sulfate (Trimethoprim/Polymyxin B) 1 drops OPR BID [facility] Stop: 05/24/23 20:59 Simvastatin (Simvastatin 40 Mg Tab) 40 mg PO HS [facility] Stop: 05/21/23 22:14 Last Admin: 04/23/23 21:07 Dose: 40 mg Spironolactone (Spironolactone 12.5 Mg Tab) 12.5 mg PO DAILY [facility] Stop: 05/23/23 10:14 Last Admin: 04/24/23 08:22 Dose: 12.5 mg Terazosin HCl (Terazosin Hcl 1 Mg Cap) 2 mg PO DAILY [facility] Stop: 05/22/23 08:59 Last Admin: 04/24/23 08:22 Dose: 2 mg Travoprost (Travoprost Z 0.004% Oph Soln 2.5 Ml Btl) 1 drops OPB HS [facility] Stop: 05/23/23 20:59 Last Admin: 04/23/23 21:08 Dose: 1 drops Warfarin Sodium (Warfarin Sod 1.25 Mg Tab) 3.75 mg PO Dustin@1600 [facility] Stop: 05/23/23 19:29 Last Admin: 04/23/23 21:03 Dose: 3.75 mg (1) CHF (congestive heart failure) Heart failure chronicity: acute Heart failure type: unspecified Qualified Code(s): I50.9 - Heart failure, unspecified
[2023-04-24] MEDS: FUROSEMIDE 40 MG TAB PO SCH (18:14)
[2023-04-24] MEDS: LANTUS PER UNIT CHARGE SQ SCH (20:23)
[2023-04-24] MEDS: TRIMETHOPRIM/POLYMYXIN B OPR SCH (20:24)
[2023-04-24] MEDS: TRAVOPROST Z 0.004% OPH SOLN 2.5 ML BTL OPB SCH (20:25)
[2023-04-24] MEDS: SIMVASTATIN 40 MG TAB PO SCH (20:28)
[2023-04-24] MEDS: EZETIMIBE 10 MG TAB PO SCH (20:29)
--- NOTE | 2023-04-24 21:39 | Communication Note ---
Date of Service: April 24, 2023
[2023-04-25] MEDS: DICLOFENAC SOD 1% GEL 100 GM TUBE EXT SCH ×5 (00:48→23:41)
[2023-04-25 06:41] LABS: Basophils # (auto) 0.02 K/uL (0.00-0.20); Basophils % (auto) 0.3 %; Eosinophils # (auto) 0.11 K/uL (0.00-0.50); Eosinophils % (auto) 1.4 %; Hemoglobin 10.3 g/dl (14.0-18.0); Immature Granulocytes # (auto) 0.03 K/uL (0.01-0.20); Immature Granulocytes % (auto) 0.4 %; Lymphocytes # (auto) 0.86 K/uL (1.20-3.40); Lymphocytes % (auto) 11.2 %; Mean Corpuscular Hemoglobin 27.2 pg (25.0-34.0); Mean Corpuscular Hgb Conc 30.3 g/dL (32.0-36.0); Mean Corpuscular Volume 89.7 fL (80.0-100.0); Mean Platelet Volume 11.7 fL (9.4-12.4); Monocytes # (auto) 0.95 K/uL (0.11-0.59); Monocytes % (auto) 12.4 %; Neutrophils # (auto) 5.68 K/uL (1.40-6.50); Neutrophils % (auto) 74.3 %; Platelet Count 172 K/uL (130-400); RDW Standard Deviation 52.9 fL (36.4-46.3); Red Blood Count 3.79 M/uL (4.70-6.10); White Blood Count 7.65 K/ul (4.8-10.8)
[2023-04-25 07:00] LABS: INR 2.7 (0.9-1.1); Prothrombin Time 27.6 Seconds (9.0-12.0)
[2023-04-25 07:27] LABS: Albumin Level 2.9 gm/dl (3.4-5.0); Bilirubin,Total 0.9 mg/dl (0.2-1.0); Calcium 8.9 mg/dl (8.6-10.3); Magnesium 1.6 mg/dl (1.7-2.4); Potassium 4.1 mmol/L (3.5-5.1)
[2023-04-25 07:33] LABS: Albumin Globulin Ratio 0.8 (0.9-2); BUN Creatinine Ratio 19.3 (10-20); Creatinine Clr Calc Pharmacy 60.6 ml/min; Est GFR (African American) 68.1 ml/min; Est GFR (Non-African American) 58.7 ml/min; Globulin 3.6 gm/dl (2.5-4.0); Total Protein 6.5 gm/dl (6.0-8.3)
[2023-04-25] MEDS: SPIRONOLACTONE 12.5 MG TAB PO SCH (09:03)
[2023-04-25] MEDS: allopurinoL 100 MG TAB PO SCH (09:04)
[2023-04-25] MEDS: MAGNESIUM OXIDE 400 MG TAB PO SCH ×2 (09:04→21:12)
[2023-04-25] MEDS: TERAZOSIN HCL 1 MG CAP PO SCH (09:05)
[2023-04-25] MEDS: FUROSEMIDE 40 MG TAB PO SCH ×2 (09:06→17:19)
[2023-04-25] MEDS: METOPROLOL SUCC 50MG EXT REL TAB PO SCH ×2 (09:06→21:13)
[2023-04-25] MEDS: BRIMONIDINE TARTRATE 0.2% 5ML OPL SCH ×2 (09:07→21:07)
[2023-04-25] MEDS: DORZOLAMIDE/TIMOLOL 22.3/6.8MG/ML 10 ML BTL OPL SCH ×2 (09:07→21:07)
[2023-04-25] MEDS: AMMONIUM LACTATE 12% LOTION 225 GM BTL EXT SCH ×2 (09:07→21:08)
[2023-04-25] MEDS: TRIMETHOPRIM/POLYMYXIN B OPR SCH ×2 (09:08→21:07)
[2023-04-25] MEDS: oxyCODONE HCL IR 5 MG TAB (IMMEDIATE RELEASE) PO PRN ×2 (09:12→15:08)
[2023-04-25] MEDS: INSULIN ASPART PER UNIT CHARGE SC SCH ×4 (09:39→21:02)
--- NOTE | 2023-04-25 11:34 | Cardiology Progress Note ---
Date of Service April 25, 2023 Assessment & Plan (1) Diastolic heart failure due to valvular disease: (2) Hypoxia: (3) Mitral valve stenosis: (4) Atrial fibrillation: (5) S/P AVR: Plan: Mechanical [employer] prosthesis (6) S/P CABG x 2: Plan Complex 83-year-old male with chronic valvular heart disease status post remote aortic valve replacement with mechanical prosthesis, progressively worsening calcific mitral valve disease with moderate to severe mitral stenosis Prior paroxysmal atrial fibrillation Presents for noncardiac complaints but found to have findings consistent with congestive heart failure with bilateral pleural effusions and increased interstitial markings likely reflecting patient's worsening mitral valve disease as well as recurrent atrial fibrillation 1. Acute on chronic diastolic heart failure secondary to valvular disease, mitral stenosis: IV diuretics ordered would continue despite significant stasis edema profound volume overload not physically examined in x-ray and imaging findings likely reflect patient's elevated right heart pressures and mitral stenosis 2. Past paroxysmal atrial fibrillation now presenting in atrial fibrillation. Unlikely return to sinus rhythm. High risk for continuation of sotalol we will discontinue. Increase metoprolol succinate to 100 mg twice per day 3. Valvular heart disease with normally functioning mechanical prosthesis aor tic valve position, moderate to severe mitral stenosis 4. Elevated INR: Suspect being aggravated by right heart pressure elevation, right heart failure. If back pain persists repeat imaging may be warranted 04/22/2023 Improved from cardiac standpoint We will continue IV diuretics and additional day Continue with back pain may warrant additional imaging given elevated INR and consistent symptoms, acute onset duration 9 to 10 days 04/23/2023 Respiratory status and lower extremity edema has improved. Atrial fibrillation rates are controlled on current dosing metoprolol succinate. No likelihood of returning to sinus rhythm antiarrhythmic We will discontinue IV furosemide after doses today Begin oral dosing in a.m. Add spironolactone 12.5 mg daily INR pending 04/24/2023 continues to improve hemodynamically however hematuria after Harper insertion last evening Issues include 1. Longstanding valvular disease status post mechanical AVR, calcific mitral valve stenosis patient warrants ongoing anticoagulation with warfarin 2. Persistent atrial fibrillation 3. Acute decompensated diastolic heart failure observed on ER presentation with back pain. Improving. We will discontinue IV furosemide after today's dose begin furosemide 40 mg twice daily continue spironolactone, Daily weights I's and O's and CHF instruction 04/25/2023 No acute cardiac complaints. We will resume warfarin needs to be continued due to mechanical aortic valve prosthesis, mitral stenosis with atrial fibrillation Chest x-ray today Continue oral regimen Admission and Anticipated Discharge Date Admission Date: April 21, 2023 Subjective Still with back pain but slightly improved. No dyspnea. Lower extreme edema improved. No dizziness or lightheadedness. No arrhythmias. No bleeding Review of Systems Review of Systems: All systems reviewed & are unremarkable except as noted in Subjective Physical Exam Constitutional: + obese; no acute distress ENMT: external ear and nose normal, oropharynx normal Neck: trachea midline, no thyromegaly Respiratory: normal respiratory effort, lungs clear to auscultation Cardiovascular: Rate/Rhythm: + irregularly irregular Heart Sounds: + murmur Vessels: no JVD Extremities: + edema (Trace with chronic stasis changes, improved) Gastrointestinal (Abdomen): normal bowel sounds, soft, nontender, no hepatosplenomegaly Musculoskeletal: no cyanosis or clubbing, extremities motor strength 5/5 Results & Data Vital Signs (Past 12 Hours) Vital Signs Temp Pulse Resp BP BP Pulse Ox O2 Del Method 04/25/23 11:30 36.6 C 86 18 125/70 93 Room Air 04/25/23 08:22 36.8 C 85 20 148/81 H 94 Room Air 04/25/23 07:48 Nasal Cannula 04/25/23 04:08 36.6 C 85 18 124/69 94 Nasal Cannula 04/25/23 00:18 Nasal Cannula O2 Flow Rate 04/25/23 11:30 04/25/23 08:22 04/25/23 07:48 2 04/25/23 04:08 2 04/25/23 00:18 2 Laboratory Results Laboratory Results - last 24 hr 04/24/23 04/24/23 04/24/23 12:01 16:42 19:50 WBC RBC Hgb Hct MCV MCH MCHC RDW Std Deviation RDW Coeff of Radha Plt Count MPV Immature Gran % (Auto) Neut % (Auto) Lymph % (Auto) [place] % (Auto) Eos % (Auto) Baso % (Auto) Neut # (Auto) Lymph # (Auto) [place] # (Auto) Eos # (Auto) Baso # (Auto) Immature Gran # (Auto) PT INR Sodium Potassium Chloride Carbon Dioxide Anion Gap BUN Creatinine Est Cr Clr Drug Dosing Est GFR ( Amer) Est GFR (Non-Af Amer) BUN/Creatinine Ratio Glucose POC Glucose 122 H 137 H 125 H Calcium Ionized Calcium Phosphorus Magnesium Total Bilirubin AST ALT Alkaline Phosphatase Total Protein Albumin Globulin Albumin/Globulin Ratio 04/25/23 04/25/23 06:15 08:02 WBC 7.65 RBC 3.79 L Hgb 10.3 L Hct 34.0 L MCV 89.7 MCH 27.2 MCHC 30.3 L RDW Std Deviation 52.9 H RDW Coeff of Radha 16.0 H Plt Count 172 MPV 11.7 Immature Gran % (Auto) 0.4 Neut % (Auto) 74.3 Lymph % (Auto) 11.2 [place] % (Auto) 12.4 Eos % (Auto) 1.4 Baso % (Auto) 0.3 Neut # (Auto) 5.68 Lymph # (Auto) 0.86 L [place] # (Auto) 0.95 H Eos # (Auto) 0.11 Baso # (Auto) 0.02 Immature Gran # (Auto) 0.03 PT 27.6 H INR 2.7 H Sodium 135 L Potassium 4.1 Chloride 100 Carbon Dioxide 29 Anion Gap 6 BUN 22 Creatinine 1.14 Est Cr Clr Drug Dosing 60.6 Est GFR ( Amer) 68.1 Est GFR (Non-Af Amer) 58.7 BUN/Creatinine Ratio 19.3 Glucose 119 H POC Glucose 118 H Calcium 8.9 Ionized Calcium 1.26 Phosphorus 3.0 Magnesium 1.6 L Total Bilirubin 0.9 AST 27 ALT 21 Alkaline Phosphatase 112 H Total Protein 6.5 Albumin 2.9 L Globulin 3.6 Albumin/Globulin Ratio 0.8 L
--- NOTE | 2023-04-25 15:29 | Hospitalist Progress Note ---
Date of Service April 25, 2023 Assessment & Plan (1) CHF (congestive heart failure): Plan Patient came in with low back pain, was found to be hypoxic at 78% on room air in ED. CTA chest was done which showed pulmonary edema and is concerning for questionable small blood clot. He is being managed for the following: Acute on chronic diastolic heart failure Patient hypoxic on room air, requiring 3 L oxygen on admission CT chest with pulmonary edema. BNP 621. Patient reports taking his home Lasix 40 mg daily. Continue Lasix 40 mg IV daily in the morning and 20 mg IV in the afternoon. Echo with EF 60-65%, LVH, RV elevation/overload, dilated atria, mod-severe mitral stenosis, mild-mod mitral regurg and mod tricuspid regurg. Cardiology consult-appreciate recs -Continue with IV diuretics -metoprolol succ 100mg BID for atrial fibrillation Heart healthy diet, less than 2 g sodium a day. Strict I's and O's, weights. Monitor replete electrolytes. Potassium added. Clinically much better and is still requiring about 3 L to maintain saturation Denies any shortness of breath and no chest pain at rest We will continue the current regimen of diuretics Noted to have questionable hematuria likely secondary to trauma with the Harper but seems to be clearing up Has been diuresing enough with IV furosemide-which will be changed to oral diuretics from tomorrow Heart failure is now compensated and he denies any symptoms at rest We will continue diuretics as per data power consultant Glaucoma Eye medications have been updated Atrial Fibrillation Currently in atrial fibrillation On metoprolol succinate, dose increased to 100mg BID Usually on coumadin, currently on hold with supratherapeutic INR INR went up to 7.2 today, received one dose of IV Vit K 2.5mg INR 5.3 after Vit K, continue to hold coumadin, AM recheck Will restart Coumadin from today He is rate is controlled Medically stable to be discharged Supratherapeutic INR: Outpatient chart review with INR of 9.0 on 03/26/2023 Admitting INR of 6.5 INR went up to 7.2 today, received one dose of IV Vit K 2.5mg Per patient, he takes Coumadin half of 7.5 mg tablet every day except and Sunday. Hold Coumadin. INR in AM. No signs of bleeding at this time however back pain persistent and worsening (see below) Hgb stable. INR is 1.4 today-we will start Coumadin from today INR is 1.6 as of today-continue current dose of Coumadin INR remains therapeutic Low back pain Persistent, worsening Given persistence and significantly elevated INR, concern for bleeding, retroperitoneal? CT abd/pelvis reviewed from 04/21 MRI lumbar spine ordered as well as repeat CT abd/pelvis to r/o the above EXTR of the spine is consistent with degenerative changes Doubt any acute nerve compression Reassured we will try local diclofenac and warm compression Back pain is stable at rest and will get PT and OT evaluation Back pain is controlled with current medication Abnormal CTA chest: Concern for a blood clot D-dimer elevated at 940 US venous Doppler BLE- no noted DVT though limited by edema Consider repeat CTA chest PE protocol in 2 days to confirm blood clot Patient does have history of IVC filter placed about 20 years ago per patient. INR currently supratherapeutic at 5.3, holding coumadin at this time. Doubt any pulmonary embolism given the INR was supratherapeutic on admission and required vitamin K Thyroid nodules Multiple thyroid nodules noted, thyroid ultrasound recommended, can be done as an outpatient after discharge. 8 mm left apex pulmonary nodule and 6 mm left lower lobe pulmonary nodule noted, follow-up CT scan in 3 months recommended. DMII hemoglobin a1c of 7.2 Hold home meds Basal/bolus while hospitalized Other chronic medical conditions: continue other home meds Diet: DMII, HH, Low sodium DVT prophylaxis: Patient is supratherapeutic INR. Full code Dispo: consider ordering PT/OT once INR therapeutic, in an effort to be extra cautious about potentially falling with activity. We will get PT and OT evaluation-recommended rehab placement Awaiting placement Admission and Anticipated Discharge Date Admission Date: April 21, 2023 Subjective 04/23/2023 The patient was seen and examined in telemetry unit in presence of the son He has been feeling much better-denies any respiratory symptoms at rest Still complains of back pain without radiation and are without any bladder and or bowel issue 04/24/2023 The patient was seen and examined in telemetry unit He has been stable and has been taking narcotic pain medications for the back pain and which is making him drowsy Denies any chest pain and/or palpitation and no shortness of breath at rest 04/25/2023 The patient was seen and examined in telemetry unit in presence of the son He has been little drowsy but otherwise denies any symptoms Back pain seems to be controlled with current pain medication Physical therapy recommended rehab Review of Systems Review of Systems: All systems reviewed and are unremarkable except as noted below Physical Exam Physical Exam: Lying in bed comfortably Constitutional: well developed, well nourished, + ill appearing and + obese Eyes: PERRL, conjunctivae normal, anicteric sclerae ENMT: external ear and nose normal, oropharynx normal Neck: trachea midline, no thyromegaly Respiratory: no respiratory distress Auscultation: + diminished lung sounds and + crackles (Minimal crackles at the bases) Cardiovascular: Rate/Rhythm: + irregularly irregular; not tachycardic Heart Sounds: normal S1, normal S2 and + murmur Extremities: + edema (Trace edema bilaterally) Gastrointestinal (Abdomen): Inspection/Auscultation: normal bowel sounds; abdomen not distended Percussion/Palpation: abdomen soft; abdomen nontender Musculoskeletal: No acute arthritis involving any of the joint Neurologic: normal touch/pain/proprioception and + meningeal signs; not confused Lymphatic: no cervical or axillary lymphadenopathy Results & Data Results & Data Vital Signs (Past 12 Hours) Vital Signs Temp Pulse Pulse Resp BP BP Pulse Ox 04/25/23 15:01 36.7 C 71 18 135/75 96 04/25/23 11:40 88 04/25/23 11:30 36.6 C 86 18 125/70 93 04/25/23 08:22 36.8 C 85 20 148/81 H 94 04/25/23 07:48 04/25/23 04:08 36.6 C 85 18 124/69 94 O2 Del Method O2 Flow Rate 04/25/23 15:01 Room Air 04/25/23 11:40 04/25/23 11:30 Room Air 04/25/23 08:22 Room Air 04/25/23 07:48 Nasal Cannula 2 04/25/23 04:08 Nasal Cannula 2 Laboratory Results Short CBC 04/25/23 Range/Units 06:15 WBC 7.65 (4.8-10.8) K/ul Hgb 10.3 L (14.0-18.0) g/dl Hct 34.0 L (42.0-52.0) % Plt Count 172 (130-400) K/uL BMP 04/25/23 06:15 Sodium 135 L Potassium 4.1 Chloride 100 Carbon Dioxide 29 BUN 22 Creatinine 1.14 Glucose 119 H Calcium 8.9 Liver Function 04/25/23 Range/Units 06:15 Total Bilirubin 0.9 (0.2-1.0) mg/dl AST 27 (13-39) U/L ALT 21 (7-52) U/L Alkaline Phosphatase 112 H (34-104) U/L Albumin 2.9 L (3.4-5.0) gm/dl Medications Administered Current Inpatient Medications Acetaminophen (Acetaminophen 325 Mg Tab) 650 mg PO Q4H PRN PRN Reason: Pain or Fever Stop: 05/21/23 10:30 Last Admin: 04/23/23 03:08 Dose: 650 mg Al Hydrox/Mg Hydrox/Simethicone (Aluminum/Magnesium Susp 30 Ml Udc) 15 ml PO Q4H PRN PRN Reason: Dyspepsia Stop: 05/21/23 10:30 Last Admin: 04/22/23 16:48 Dose: 15 ml Allopurinol (Allopurinol 100 Mg Tab) 200 mg PO QAM [facility] Stop: 05/22/23 08:59 Last Admin: 04/25/23 09:04 Dose: 200 mg Aspirin (Aspirin 81 Mg Chew) 81 mg PO [id number] [facility] Stop: 05/23/23 08:59 Last Admin: 04/23/23 08:52 Dose: 81 mg Bismuth Subsalicylate (Bismuth Subsalicylate Susp) 30 ml PO DAILY PRN PRN Reason: Diarrhea Stop: 05/21/23 12:39 Brimonidine Tartrate (Brimonidine Tartrate 0.2% 5ml) 1 drops OPL BID [facility] Stop: 05/21/23 20:59 Last Admin: 04/25/23 09:07 Dose: 1 drops Dextrose (Dextrose 50% 50 Ml Syringe) 25 - 50 ml IV UD PRN; Protocol PRN Reason: Hypoglycemia Protocol Stop: 05/21/23 10:30 Diclofenac Sodium (Diclofenac Sod 1% Gel 100 Gm Tube) 4 gm EXT Q6H RONAN; Protocol Stop: 05/21/23 11:44 Last Admin: 04/25/23 12:42 Dose: 4 gm Dorzolamide/Timolol (Dorzolamide/Timolol 22.3/6.8mg/Ml 10 Ml Btl) 1 drops OPL BID [facility]ONAN Stop: 05/21/23 20:59 Last Admin: 04/25/23 09:07 Dose: 1 drops Ezetimibe (Ezetimibe 10 Mg Tab) 10 mg PO HS [facility] Stop: 05/21/23 22:14 Last Admin: 04/24/23 20:29 Dose: 10 mg Furosemide (Furosemide 40 Mg Tab) 40 mg PO [id number] [facility]ON[facility] Stop: 05/24/23 16:59 Last Admin: 04/25/23 09:06 Dose: 40 mg Glucagon (Glucagon For Inj 1 Mg Vial) 1 mg SQ UD PRN; Protocol PRN Reason: Hypoglycemia Protocol Stop: 05/21/23 10:30 Glucose (Glucose 10 Tab/Tube) 4 - 8 tab PO UD PRN; Protocol PRN Reason: Hypoglycemia Treatment Stop: 05/21/23 10:30 Glucose (Glucose 40% Gel 15 Gm Tube) 15 - 30 gm PO UD PRN; Protocol PRN Reason: Hypoglycemia Protocol Stop: 05/21/23 10:30 Insulin Aspart (Insulin Aspart Per Unit Charge) 0 units SC ACHS [facility] Stop: 05/21/23 11:29 Last Admin: 04/25/23 13:04 Dose: 2 units Insulin Glargine (Lantus Per Unit Charge) 0 units SQ HS [facility]; Protocol Stop: 05/23/23 20:59 Last Admin: 04/24/23 20:23 Dose: 10 units Lactic Acid (Ammonium Lactate 12% Lotion 225 Gm Btl) 1 gm EXT BID [facility]ONAN Stop: 05/21/23 10:29 Last Admin: 04/25/23 09:07 Dose: 1 gm Magnesium Hydroxide (Magnesium Hydroxide Susp 30 Ml Udc) 30 ml PO Q12H PRN PRN Reason: Constipation Stop: 05/21/23 10:30 Magnesium Oxide (Magnesium Oxide 400 Mg Tab) 400 mg PO BID [facility] Stop: 05/22/23 20:59 Last Admin: 04/25/23 09:04 Dose: 400 mg Metoprolol Succinate (Metoprolol Succ 50mg Ext Rel Tab) 100 mg PO BID [facility] Stop: 05/21/23 13:29 Last Admin: 04/25/23 09:06 Dose: 100 mg Miscellaneous (Carbohydrates For Hypoglycemia ) 15 - 30 gm PO UD PRN PRN Reason: Hypoglycemia Protocol Stop: 05/21/23 10:30 Miscellaneous Information (Pharmacy Glycemic Mgmt Consult) 1 each N/A UD PRN PRN Reason: Consult Stop: 05/21/23 10:30 Netarsudil (Netarsudil Mesylate 37 Drops/2.5 Ml Btl) 2 drops OPL HS [facility] Stop: 05/25/23 20:59 Oxycodone HCl (Oxycodone Hcl Ir 5 Mg Tab (Immediate Release)) 5 - 10 mg PO QID PRN PRN Reason: Pain Stop: 05/06/23 05:59 Last Admin: 04/25/23 15:08 Dose: 10 mg Polyethylene Glycol (Polyethylene (Miralax) 17 Gm Pack) 17 gm PO DAILY PRN PRN Reason: Constipation Stop: 05/22/23 16:56 Polymyxin/Trimethoprim Sulfate (Trimethoprim/Polymyxin B) 1 drops OPR BID [facility] Stop: 05/24/23 20:59 Last Admin: 04/25/23 09:08 Dose: 1 drops Simvastatin (Simvastatin 40 Mg Tab) 40 mg PO HS [facility] Stop: 05/21/23 22:14 Last Admin: 04/24/23 20:28 Dose: 40 mg Spironolactone (Spironolactone 12.5 Mg Tab) 12.5 mg PO DAILY [facility] Stop: 05/23/23 10:14 Last Admin: 04/25/23 09:03 Dose: 12.5 mg Terazosin HCl (Terazosin Hcl 1 Mg Cap) 2 mg PO DAILY [facility] Stop: 05/22/23 08:59 Last Admin: 04/25/23 09:05 Dose: 2 mg Travoprost (Travoprost Z 0.004% Oph Soln 2.5 Ml Btl) 1 drops OPB HS [facility] Stop: 05/23/23 20:59 Last Admin: 04/24/23 20:25 Dose: 1 drops Warfarin Sodium (Warfarin Sod 1.25 Mg Tab) 3.75 mg PO [email or web address] [facility] Stop: 05/23/23 19:29 Last Admin: 04/23/23 21:03 Dose: 3.75 mg (1) CHF (congestive heart failure) Heart failure chronicity: acute Heart failure type: unspecified Qualified Code(s): I50.9 - Heart failure, unspecified
--- NOTE | 2023-04-25 15:56 | XRay Report ---
XR chest 1V portable HISTORY: chf, mitral stenosis, AVR COMPARISON: Chest 10/13/2015. FINDINGS: No pneumothorax. The heart remains enlarged. There are poststernotomy changes. Slight progr ession of the interstitial/vascular thickening consistent with pulmonary vascular congestion. There a re trace bilateral pleural effusions and bibasilar densities. Prior cholecystectomy. IMPRESSION: 1. Cardiomegaly with mild pulmonary vascular congestion. This has slightly progressed. 2. Trace bilateral pleural effusions and patchy bibasilar densities. This may represent atelectasis. A superimposed pneumonia would be difficult to exclude but considered less likely. ACT 112: Negative or not required by law. Electronically signed by: Jose Roberto Peterson M.D. 04/25/2023 3:55 PM
[2023-04-25] MEDS: WARFARIN SOD 1.25 MG TAB PO SCH (17:18)
[2023-04-25] MEDS ORDERED: NON-FORMULARY PATIENT'S OWN MED SCH (21:00)
[2023-04-25] MEDS: LANTUS PER UNIT CHARGE SQ SCH (21:03)
[2023-04-25] MEDS: NETARSUDIL MESYLATE 37 DROPS/2.5 ML BTL OPL SCH (21:06)
[2023-04-25] MEDS: EZETIMIBE 10 MG TAB PO SCH (21:12)
[2023-04-25] MEDS: SIMVASTATIN 40 MG TAB PO SCH (21:13)
[2023-04-26] MEDS: oxyCODONE HCL IR 5 MG TAB (IMMEDIATE RELEASE) PO PRN (03:55)
[2023-04-26] MEDS: DICLOFENAC SOD 1% GEL 100 GM TUBE EXT SCH ×4 (05:12→22:49)
[2023-04-26 05:29] LABS: BUN Creatinine Ratio 20.7 (10-20); Calcium 9.6 mg/dl (8.6-10.3); Est GFR (African American) 66.7 ml/min; Est GFR (Non-African American) 57.5 ml/min
[2023-04-26 05:34] LABS: INR 3.3 (0.9-1.1); Prothrombin Time 33.9 Seconds (9.0-12.0)
[2023-04-26] MEDS: INSULIN ASPART PER UNIT CHARGE SC SCH ×4 (09:04→20:28)
[2023-04-26] MEDS: allopurinoL 100 MG TAB PO SCH (09:05)
[2023-04-26] MEDS: POLYETHYLENE (MIRALAX) 17 GM PACK PO PRN (09:05)
[2023-04-26] MEDS: AMMONIUM LACTATE 12% LOTION 225 GM BTL EXT SCH ×2 (09:05→20:29)
[2023-04-26] MEDS: MAGNESIUM OXIDE 400 MG TAB PO SCH ×2 (09:06→20:30)
[2023-04-26] MEDS: METOPROLOL SUCC 50MG EXT REL TAB PO SCH ×2 (09:06→20:31)
[2023-04-26] MEDS: TERAZOSIN HCL 1 MG CAP PO SCH (09:06)
[2023-04-26] MEDS: FUROSEMIDE 40 MG TAB PO SCH ×2 (09:06→17:42)
[2023-04-26] MEDS: SPIRONOLACTONE 12.5 MG TAB PO SCH (09:06)
[2023-04-26] MEDS: TRIMETHOPRIM/POLYMYXIN B OPR SCH ×2 (09:06→20:38)
[2023-04-26] MEDS: BRIMONIDINE TARTRATE 0.2% 5ML OPL SCH ×2 (09:07→20:39)
[2023-04-26] MEDS: DORZOLAMIDE/TIMOLOL 22.3/6.8MG/ML 10 ML BTL OPL SCH ×2 (09:07→20:39)
--- NOTE | 2023-04-26 11:25 | Cardiology Progress Note ---
Date of Service April 26, 2023 Assessment & Plan (1) Diastolic heart failure due to valvular disease: (2) Hypoxia: (3) Mitral valve stenosis: (4) Atrial fibrillation: (5) S/P AVR: Plan: Mechanical [employer] prosthesis (6) S/P CABG x 2: Plan Complex 83-year-old male with chronic valvular heart disease status post remote aortic valve replacement with mechanical prosthesis, progressively worsening calcific mitral valve disease with moderate to severe mitral stenosis Prior paroxysmal atrial fibrillation Presents for noncardiac complaints but found to have findings consistent with congestive heart failure with bilateral pleural effusions and increased interstitial markings likely reflecting patient's worsening mitral valve disease as well as recurrent atrial fibrillation 1. Acute on chronic diastolic heart failure secondary to valvular disease, mitral stenosis: IV diuretics ordered would continue despite significant stasis edema profound volume overload not physically examined in x-ray and imaging findings likely reflect patient's elevated right heart pressures and mitral stenosis 2. Past paroxysmal atrial fibrillation now presenting in atrial fibrillation. Unlikely return to sinus rhythm. High risk for continuation of sotalol we will discontinue. Increase metoprolol succinate to 100 mg twice per day 3. Valvular heart disease with normally functioning mechanical prosthesis aor tic valve position, moderate to severe mitral stenosis 4. Elevated INR: Suspect being aggravated by right heart pressure elevation, right heart failure. If back pain persists repeat imaging may be warranted 04/22/2023 Improved from cardiac standpoint We will continue IV diuretics and additional day Continue with back pain may warrant additional imaging given elevated INR and consistent symptoms, acute onset duration 9 to 10 days 04/23/2023 Respiratory status and lower extremity edema has improved. Atrial fibrillation rates are controlled on current dosing metoprolol succinate. No likelihood of returning to sinus rhythm antiarrhythmic We will discontinue IV furosemide after doses today Begin oral dosing in a.m. Add spironolactone 12.5 mg daily INR pending 04/24/2023 continues to improve hemodynamically however hematuria after Harper insertion last evening Issues include 1. Longstanding valvular disease status post mechanical AVR, calcific mitral valve stenosis patient warrants ongoing anticoagulation with warfarin 2. Persistent atrial fibrillation 3. Acute decompensated diastolic heart failure observed on ER presentation with back pain. Improving. We will discontinue IV furosemide after today's dose begin furosemide 40 mg twice daily continue spironolactone, Daily weights I's and O's and CHF instruction 04/25/2023 No acute cardiac complaints. We will resume warfarin needs to be continued due to mechanical aortic valve prosthesis, mitral stenosis with atrial fibrillation Chest x-ray today Continue oral regimen 04/26/2023 Stable from a cardiac standpoint on appropriate medical therapies Still with back pain and indwelling Harper catheter Difficulty moving per patient We will continue furosemide and spironolactone at current dosing orally CHF instruction Sotalol discontinued and metoprolol succinate 100 mg twice per day substituted would continue Patient requires ongoing anticoagulation given mechanical aortic valve and atrial fibrillation, mitral stenosis. Will likely need mild reduction in warfarin dosing Admission and Anticipated Discharge Date Admission Date: April 21, 2023 Subjective Patient seen and examined, chart, medications, telemetry reviewed Mildly flushed Still complaining of back pain No cardiac complaint Blood pressure and heart rate up slightly today No fevers or chills INR therapeutic Renal function stable Review of Systems Review of Systems: All systems reviewed & are unremarkable except as noted in Subjective Physical Exam Constitutional: + obese; no acute distress Eyes: PERRL, conjunctivae normal, anicteric sclerae ENMT: external ear and nose normal, oropharynx normal Neck: trachea midline, no thyromegaly Respiratory: normal respiratory effort, lungs clear to auscultation Cardiovascular: Rate/Rhythm: + irregularly irregular Heart Sounds: + murmur Vessels: no JVD Extremities: + edema (Trace with chronic stasis changes, improved) Gastrointestinal (Abdomen): normal bowel sounds, soft, nontender, no hepatosplenomegaly Musculoskeletal: no cyanosis or clubbing, extremities motor strength 5/5 Results & Data Vital Signs (Past 12 Hours) Vital Signs Temp Pulse Pulse Resp BP Pulse Ox O2 Del Method 04/26/23 08:01 36.8 C 95 H 18 157/73 H 94 Nasal Cannula 04/26/23 08:00 94 H 04/26/23 08:00 Nasal Cannula 04/26/23 03:14 36.5 C 95 H 18 152/72 H 90 Nasal Cannula 04/25/23 23:36 37.0 C 78 16 133/78 93 Nasal Cannula O2 Flow Rate 04/26/23 08:01 2 04/26/23 08:00 04/26/23 08:00 3 04/26/23 03:14 2 04/25/23 23:36 2 Laboratory Results Laboratory Results - last 24 hr 04/25/23 04/25/2323 11:49 16:27 19:54 PT INR Sodium Potassium Chloride Carbon Dioxide Anion Gap BUN Creatinine Est Cr Clr Drug Dosing Est GFR ( Amer) Est GFR (Non-Af Amer) BUN/Creatinine Ratio Glucose POC Glucose 144 H 132 H 158 H Calcium 04/26/23 04/26/23 04:18 08:04 PT 33.9 H INR 3.3 H Sodium 133 L Potassium 4.0 Chloride 97 L Carbon Dioxide 29 Anion Gap 7 BUN 24 H Creatinine 1.16 Est Cr Clr Drug Dosing 39.0 Est GFR ( Amer) 66.7 Est GFR (Non-Af Amer) 57.5 BUN/Creatinine Ratio 20.7 H Glucose 135 H POC Glucose 153 H Calcium 9.6
--- NOTE | 2023-04-26 13:28 | Pharmacy Report ---
Pharmacy Glycemic Short Note 2 - Date of Service April 26, 2023 - Glycemic Short BSG Results (Last 24 hours): 04/25/23 04/25/23 04/26/23 16:27 19:54 04:18 Glucose 135 H POC Glucose 132 H 158 H 04/26/23 04/26/23 08:04 11:54 Glucose POC Glucose 153 H 120 H OUTPATIENT ANTIDIABETIC REGIMEN: * Levemir 20 units SQ HS * Novolog 0-20 units SS SQ TIDM * Metformin 1 gm PO BID HbA1c: 7.3% (04/22/23) ASSESSMENT: 04/26: * Patient received 15 units of basal last night and total of 6 units bolus. * BSGs yesterday were [phone] mg/dl. Fasting BSG today was 135 mg/dl. * Continued with basal insulin scale at HS same as before and Novolog parameters. 04/23/23: * BSGs trended up throughout the day yesterday * Will tighten Novolog parameters today in light of this * Received 16 units of insulin (10 units of basal and 6 units of prandial/correctional bolus) * Fasting BSG of 138 mg/dL today - allow for increased basal dose today 04/21/23: * 83 y/o M admitted for low back pain. He has history of Type 2 diabetes managed on basal and bolus insulins and oral Metformin at home. * Patient took his last dose of basal insulin prior to admission yesterday. Slightly reduced dose of basal (stress of 2) ordered for HS. * Novolog parameters ordered based off of his home doses. This may need tightened if BSGs are trending up. PLAN FOR INPATIENT GLYCEMIC CONTROL: * Hold outpatient oral diabetes medications * Basal insulin * Lantus 10-15 units SQ HS (see EHR for details) * Bolus insulin * NovoLog per scale ACHS or Q6hrs while NPO * Goal Range: Low 120 mg/dL - High 150 mg/dL * Correction Factor: 25 mg/dL/unit * Nutritional / Prandial insulin per carb ratio of 1 unit per 9 grams CHO consumed
[2023-04-26] MEDS ORDERED: OPTIRAY 320 100ml IV ONE (14:47)
--- NOTE | 2023-04-26 15:59 | Hospitalist Progress Note ---
Date of Service April 26, 2023 Assessment & Plan (1) CHF (congestive heart failure): Plan Patient came in with low back pain, was found to be hypoxic at 78% on room air in ED. CTA chest was done which showed pulmonary edema and is concerning for questionable small blood clot. He is being managed for the following: Acute on chronic diastolic heart failure Patient hypoxic on room air, requiring 3 L oxygen on admission CT chest with pulmonary edema. BNP 621. Patient reports taking his home Lasix 40 mg daily. Continue Lasix 40 mg IV daily in the morning and 20 mg IV in the afternoon. Echo with EF 60-65%, LVH, RV elevation/overload, dilated atria, mod-severe mitral stenosis, mild-mod mitral regurg and mod tricuspid regurg. Cardiology consult-appreciate recs -Continue with IV diuretics -metoprolol succ 100mg BID for atrial fibrillation Heart healthy diet, less than 2 g sodium a day. Strict I's and O's, weights. Monitor replete electrolytes. Potassium added. Clinically much better and is still requiring about 3 L to maintain saturation Denies any shortness of breath and no chest pain at rest We will continue the current regimen of diuretics Noted to have questionable hematuria likely secondary to trauma with the Harper but seems to be clearing up Has been diuresing enough with IV furosemide-which will be changed to oral diuretics from tomorrow Heart failure is now compensated and he denies any symptoms at rest We will continue diuretics as per tool adjuster No acute cardiac symptoms and remains stable to be discharged from cardiac point of view Low back pain Persistent, worsening Given persistence and significantly elevated INR, concern for bleeding, retroperitoneal? CT abd/pelvis reviewed from 04/21 MRI lumbar spine ordered as well as repeat CT abd/pelvis to r/o the above EXTR of the spine is consistent with degenerative changes Doubt any acute nerve compression Reassured we will try local diclofenac and warm compression Back pain is stable at rest and will get PT and OT evaluation Back pain is controlled with current medication Increasing back pain and will get lumbar disc spine CT scan with or without contrast to rule out any disc protrusion and/or nerve entrapment. He cannot have MRI Glaucoma Eye medications have been updated Atrial Fibrillation Currently in atrial fibrillation On metoprolol succinate, dose increased to 100mg BID Usually on coumadin, currently on hold with supratherapeutic INR INR went up to 7.2 today, received one dose of IV Vit K 2.5mg INR 5.3 after Vit K, continue to hold coumadin, AM recheck Will restart Coumadin from today He is rate is controlled Medically stable to be discharged Supratherapeutic INR: Outpatient chart review with INR of 9.0 on 03/26/2023 Admitting INR of 6.5 INR went up to 7.2 today, received one dose of IV Vit K 2.5mg Per patient, he takes Coumadin half of 7.5 mg tablet every day except and Sunday. Hold Coumadin. INR in AM. No signs of bleeding at this time however back pain persistent and worsening (see below) Hgb stable. INR is 1.4 today-we will start Coumadin from today INR is 1.6 as of today-continue current dose of Coumadin INR remains therapeutic-3.3 INR today Abnormal CTA chest: Concern for a blood clot D-dimer elevated at 940 US venous Doppler BLE- no noted DVT though limited by edema Consider repeat CTA chest PE protocol in 2 days to confirm blood clot Patient does have history of IVC filter placed about 20 years ago per patient. INR currently supratherapeutic at 5.3, holding coumadin at this time. Doubt any pulmonary embolism given the INR was supratherapeutic on admission and required vitamin K Thyroid nodules Multiple thyroid nodules noted, thyroid ultrasound recommended, can be done as an outpatient after discharge. 8 mm left apex pulmonary nodule and 6 mm left lower lobe pulmonary nodule noted, follow-up CT scan in 3 months recommended. DMII hemoglobin a1c of 7.2 Hold home meds Basal/bolus while hospitalized Other chronic medical conditions: continue other home meds Diet: DMII, HH, Low sodium DVT prophylaxis: Patient is supratherapeutic INR. Full code Dispo: consider ordering PT/OT once INR therapeutic, in an effort to be extra cautious about potentially falling with activity. We will get PT and OT evaluation-recommended rehab placement Awaiting placement Admission and Anticipated Discharge Date Admission Date: April 21, 2023 Subjective 04/23/2023 The patient was seen and examined in telemetry unit in presence of the son He has been feeling much better-denies any respiratory symptoms at rest Still complains of back pain without radiation and are without any bladder and or bowel issue 04/24/2023 The patient was seen and examined in telemetry unit He has been stable and has been taking narcotic pain medications for the back pain and which is making him drowsy Denies any chest pain and/or palpitation and no shortness of breath at rest 04/25/2023 The patient was seen and examined in telemetry unit in presence of the son He has been little drowsy but otherwise denies any symptoms Back pain seems to be controlled with current pain medication Physical therapy recommended rehab 04/26/2023 The patient was seen and examined in telemetry unit in presence of the son He complains to have pain at the lower back He is not controlled with current medication We will get lumbar spine CT scan with and without contrast Review of Systems Review of Systems: All systems reviewed and are unremarkable except as noted below Physical Exam Physical Exam: Lying in bed comfortably Constitutional: well developed, well nourished, + ill appearing and + obese Eyes: PERRL, conjunctivae normal, anicteric sclerae ENMT: external ear and nose normal, oropharynx normal Neck: trachea midline, no thyromegaly Respiratory: no respiratory distress Auscultation: + diminished lung sounds and + crackles (Minimal crackles at the bases) Cardiovascular: Rate/Rhythm: + irregularly irregular; not tachycardic Heart Sounds: normal S1, normal S2 and + murmur Extremities: + edema (Trace edema bilaterally) Gastrointestinal (Abdomen): Inspection/Auscultation: normal bowel sounds; abdomen not distended Percussion/Palpation: abdomen soft; abdomen nontender Neurologic: normal touch/pain/proprioception and + meningeal signs; not confused Lymphatic: no cervical or axillary lymphadenopathy Results & Data Results & Data Vital Signs (Past 12 Hours) Vital Signs Temp Pulse Pulse Resp BP Pulse Ox O2 Del Method 04/26/23 15:19 36.7 C 92 H 16 136/78 94 Nasal Cannula 04/26/23 12:18 36.6 C 89 18 120/74 94 Nasal Cannula 04/26/23 08:01 36.8 C 95 H 18 157/73 H 94 Nasal Cannula 04/26/23 08:00 94 H 04/26/23 08:00 Nasal Cannula O2 Flow Rate 04/26/23 15:19 3 04/26/23 12:18 2 04/26/23 08:01 2 04/26/23 08:00 04/26/23 08:00 3 Laboratory Results [facility] 04/26/23 04:18 Sodium 133 L Potassium 4.0 Chloride 97 L Carbon Dioxide 29 BUN 24 H Creatinine 1.16 Glucose 135 H Calcium 9.6 Medications Administered Current Inpatient Medications Acetaminophen (Acetaminophen 325 Mg Tab) 650 mg PO Q4H PRN PRN Reason: Pain or Fever Stop: 05/21/23 10:30 Last Admin: 04/23/23 03:08 Dose: 650 mg Al Hydrox/Mg Hydrox/Simethicone (Aluminum/Magnesium Susp 30 Ml Udc) 15 ml PO Q4H PRN PRN Reason: Dyspepsia Stop: 05/21/23 10:30 Last Admin: 04/22/23 16:48 Dose: 15 ml Allopurinol (Allopurinol 100 Mg Tab) 200 mg PO QAM [facility] Stop: 05/22/23 08:59 Last Admin: 04/26/23 09:05 Dose: 200 mg Aspirin (Aspirin 81 Mg Chew) 81 mg PO MoWeFr@0900 [facility] Stop: 05/23/23 08:59 Last Admin: 04/23/23 08:52 Dose: 81 mg Bismuth Subsalicylate (Bismuth Subsalicylate Susp) 30 ml PO DAILY PRN PRN Reason: Diarrhea Stop: 05/21/23 12:39 Brimonidine Tartrate (Brimonidine Tartrate 0.2% 5ml) 1 drops OPL BID [facility] Stop: 05/21/23 20:59 Last Admin: 04/26/23 09:07 Dose: 1 drops Dextrose (Dextrose 50% 50 Ml Syringe) 25 - 50 ml IV UD PRN; Protocol PRN Reason: Hypoglycemia Protocol Stop: 05/21/23 10:30 Diclofenac Sodium (Diclofenac Sod 1% Gel 100 Gm Tube) 4 gm EXT Q6H [facility]; Protocol Stop: 05/21/23 11:44 Last Admin: 04/26/23 12:51 Dose: 4 gm Dorzolamide/Timolol (Dorzolamide/Timolol 22.3/6.8mg/Ml 10 Ml Btl) 1 drops OPL BID [facility] Stop: 05/21/23 20:59 Last Admin: 04/26/23 09:07 Dose: 1 drops Ezetimibe (Ezetimibe 10 Mg Tab) 10 mg PO HS [facility] Stop: 05/21/23 22:14 Last Admin: 04/25/23 21:12 Dose: 10 mg Furosemide (Furosemide 40 Mg Tab) 40 mg PO [id number] RONAN Stop: 05/24/23 16:59 Last Admin: 04/26/23 09:06 Dose: 40 mg Glucagon (Glucagon For Inj 1 Mg Vial) 1 mg SQ UD PRN; Protocol PRN Reason: Hypoglycemia Protocol Stop: 05/21/23 10:30 Glucose (Glucose 10 Tab/Tube) 4 - 8 tab PO UD PRN; Protocol PRN Reason: Hypoglycemia Treatment Stop: 05/21/23 10:30 Glucose (Glucose 40% Gel 15 Gm Tube) 15 - 30 gm PO UD PRN; Protocol PRN Reason: Hypoglycemia Protocol Stop: 05/21/23 10:30 Insulin Aspart (Insulin Aspart Per Unit Charge) 0 units SC ACHS [facility] Stop: 05/21/23 11:29 Last Admin: 04/26/23 12:50 Dose: 3 units Insulin Glargine (Lantus Per Unit Charge) 0 units SQ HS [facility]; Protocol Stop: 05/23/23 20:59 Last Admin: 04/25/23 21:03 Dose: 15 units Lactic Acid (Ammonium Lactate 12% Lotion 225 Gm Btl) 1 gm EXT BID [facility] Stop: 05/21/23 10:29 Last Admin: 04/26/23 09:05 Dose: 1 gm Magnesium Hydroxide (Magnesium Hydroxide Susp 30 Ml Udc) 30 ml PO Q12H PRN PRN Reason: Constipation Stop: 05/21/23 10:30 Magnesium Oxide (Magnesium Oxide 400 Mg Tab) 400 mg PO BID [facility] Stop: 05/22/23 20:59 Last Admin: 04/26/23 09:06 Dose: 400 mg Metoprolol Succinate (Metoprolol Succ 50mg Ext Rel Tab) 100 mg PO BID [facility] Stop: 05/21/23 13:29 Last Admin: 04/26/23 09:06 Dose: 100 mg Miscellaneous (Carbohydrates For Hypoglycemia ) 15 - 30 gm PO UD PRN PRN Reason: Hypoglycemia Protocol Stop: 05/21/23 10:30 Miscellaneous Information (Pharmacy Glycemic Mgmt Consult) 1 each N/A UD PRN PRN Reason: Consult Stop: 05/21/23 10:30 Netarsudil (Netarsudil Mesylate 37 Drops/2.5 Ml Btl) 2 drops OPL HS [facility] Stop: 05/25/23 20:59 Last Admin: 04/25/23 21:06 Dose: 2 drops Oxycodone HCl (Oxycodone Hcl Ir 5 Mg Tab (Immediate Release)) 5 - 10 mg PO QID PRN PRN Reason: Pain Stop: 05/06/23 05:59 Last Admin: 04/26/23 03:55 Dose: 5 mg Polyethylene Glycol (Polyethylene (Miralax) 17 Gm Pack) 17 gm PO DAILY PRN PRN Reason: Constipation Stop: 05/22/23 16:56 Last Admin: 04/26/23 09:05 Dose: 17 gm Polymyxin/Trimethoprim Sulfate (Trimethoprim/Polymyxin B) 1 drops OPR BID [facility] Stop: 05/24/23 20:59 Last Admin: 04/26/23 09:06 Dose: 1 drops Simvastatin (Simvastatin 40 Mg Tab) 40 mg PO HS [facility] Stop: 05/21/23 22:14 Last Admin: 04/25/23 21:13 Dose: 40 mg Spironolactone (Spironolactone 12.5 Mg Tab) 12.5 mg PO DAILY [facility] Stop: 05/23/23 10:14 Last Admin: 04/26/23 09:06 Dose: 12.5 mg Terazosin HCl (Terazosin Hcl 1 Mg Cap) 2 mg PO DAILY [facility] Stop: 05/22/23 08:59 Last Admin: 04/26/23 09:06 Dose: 2 mg Travoprost (Travoprost Z 0.004% Oph Soln 2.5 Ml Btl) 1 drops OPB HS [facility] Stop: 05/23/23 20:59 Last Admin: 04/24/23 20:25 Dose: 1 drops Warfarin Sodium (Warfarin Sod 1.25 Mg Tab) 3.75 mg PO Dustin@1600 [facility] Stop: 05/23/23 19:29 Last Admin: 04/25/23 17:18 Dose: 3.75 mg (1) CHF (congestive heart failure) Heart failure chronicity: acute Heart failure type: unspecified Qualified Code(s): I50.9 - Heart failure, unspecified
--- NOTE | 2023-04-26 16:32 | CT Scan Report ---
CT lumbar spine wo/w con HISTORY: 83 years-old Male Severe back pain with radiation Acute severe low back pain without report ed trauma. COMPARISON: CT abdomen and pelvis 04/22/2023, CTA chest 04/21/2023. TECHNIQUE: Multiple axial CT images of the lumbar spine were obtained with and without the use of IV contrast. A dose lowering technique was used consistent with the principals of SABIHA. FINDINGS: Partially imaged right pleural effusion redemonstrated. Left renal cyst. IVC filter. Multiple nonspec ific prevertebral edema at L1. Additionally, there is mild endplate irregularity anteriorly at L1-L2 which is also likely degenerative related. There is transitional lumbosacral anatomy. For the purposes of this exam when compared to the prior CT studies listed above, the L5-S1 disc spac e is described on axial image 88 which demonstrates partial sacralization. Evaluation of the central canal and neural foramina by CT technique. No high-grade central canal stenosis. Moderate level neura l foraminal narrowing, severe in the left at L4-L5. There is moderate degeneration of the SI joints w hich are partially fused. Severe multilevel facet arthrosis with advanced spondylotic spurring. There is mild and mild to moderate intervertebral disc space narrowing. Mild lumbar levoscoliosis. IMPRESSION: 1. No acute fracture or subluxation of the lumbar spine identified. 2. Multilevel degenerative changes as described above. 3. There is mild prevertebral edema again at L1 which is favored to be on a degenerative basis and is unchanged from prior. Developing discitis/osteomyelitis considered less likely. 5. Partially imaged right pleural effusion redemonstrated. ACT 112: Negative or not required by law. The above report was generated using voice recognition software. It may contain grammatical, syntax o r spelling errors. Dictated: 04/26/2023 3:38 PM Transcribed: 04/26/2023 3:57 PM [place] [id number] Electronically signed by: Guy Padilla M.D. 04/26/2023 4:31 PM
[2023-04-26] MEDS: LANTUS PER UNIT CHARGE SQ SCH (20:27)
[2023-04-26] MEDS: SIMVASTATIN 40 MG TAB PO SCH (20:29)
[2023-04-26] MEDS: EZETIMIBE 10 MG TAB PO SCH (20:31)
[2023-04-26] MEDS: NETARSUDIL MESYLATE 37 DROPS/2.5 ML BTL OPL SCH (20:38)
[2023-04-27] MEDS: DICLOFENAC SOD 1% GEL 100 GM TUBE EXT SCH ×4 (05:20→23:40)
[2023-04-27] MEDS: oxyCODONE HCL IR 5 MG TAB (IMMEDIATE RELEASE) PO PRN ×3 (08:40→16:48)
[2023-04-27] MEDS: MAGNESIUM OXIDE 400 MG TAB PO SCH ×2 (08:41→20:33)
[2023-04-27] MEDS: METOPROLOL SUCC 50MG EXT REL TAB PO SCH ×2 (08:41→20:34)
[2023-04-27] MEDS: SPIRONOLACTONE 12.5 MG TAB PO SCH (08:41)
[2023-04-27] MEDS: allopurinoL 100 MG TAB PO SCH (08:41)
[2023-04-27] MEDS: FUROSEMIDE 40 MG TAB PO SCH ×2 (08:42→16:48)
[2023-04-27] MEDS: TERAZOSIN HCL 1 MG CAP PO SCH (08:42)
[2023-04-27] MEDS: AMMONIUM LACTATE 12% LOTION 225 GM BTL EXT SCH ×2 (08:42→20:30)
[2023-04-27] MEDS: BRIMONIDINE TARTRATE 0.2% 5ML OPL SCH ×2 (08:43→20:29)
[2023-04-27] MEDS: DORZOLAMIDE/TIMOLOL 22.3/6.8MG/ML 10 ML BTL OPL SCH ×2 (08:43→20:27)
[2023-04-27] MEDS: TRIMETHOPRIM/POLYMYXIN B OPR SCH ×2 (08:44→20:28)
[2023-04-27] MEDS: INSULIN ASPART PER UNIT CHARGE SC SCH ×4 (08:44→20:38)
--- OUTSIDE RECORDS SUMMARY | 2023-04-27 08:50 | External Medical Summary ---
Author Name Unknown Address Unknown Organization K09:[facility] [id number] Laboratory Report Ordering Provider Test Date Status MARTINPHARMACIST1 04/09/2023 14:02:57 Final Therapeutic ranges for non-o perative patients:
Prophylaxsis/treatment of DVT: (Range:2.0-3.0)
Treatment of pulmonary embolism:(Range:2.0-3.0)
Prevention of systemic embolism from:
-tissue heart valves
-acute myocardial infarction
-valvular heart disease
-atrial fibrillation
(Range: 2.0-3.0)
Mechanical prosthetic valves: (Range: 2.5-3.5) Observation Date Value Abnormality Reference (Units ) Status INR in Capillary blood by Coagulation assay 04/09/2023 14:02:57 1.6 (INR) Final Performing Location [facility] [id number]
--- OUTSIDE RECORDS SUMMARY | 2023-04-27 08:50 | External Medical Summary | Summary of Care ---
Author Name Unknown Organization [facility] Address [address] [place] [address] Phone [phone] Care Team Providers Care Stabilizing Machine Operator Name Role Phone Sourav Verde MD Primary Care Provider + Reason for Visit * Reason Onset Date Comments Test Results 03/28/2023 Encounter Details Date Type Department Care Team (Late st Contact Info) Description 03/28/2023 Telephone General Internal Medicine [facility] [address] [facility] [place] [address] Keyshawn Jeter PA-C [address] [place] [address] Test Results Allergies Active Allergy Reactions Criticality Noted Date Comments Niacin Er Flushing,Itching 03/29/2010 documented as of this encounter (statuses as of 04/10/2023) Medications Medication Sig Dispensed Refills Start Date End Date Status NITROGLYCERIN 0.4 MG SL SUBLIndications:Ch ronic ischemic heart disease one tab under tongue as needed for chest pain maximum 3 dose 25 5 07/20/2008 Active ONE TOUCH ULTRASOFT LANCETS MISC Check glucose two times a day Dx 250.00 100 Each 5 01/26/2015 Active dorzolamide-timolo l (COSOPT OCUMETER PLUS) 2.23-0.68% ophthalmic solution 2 08/06/2015 Active ONETOUCH ULTRASOFT LANCETS MISC CHECK GLUCOSE TWO TIMES A DAY DX E11.29 300 Each 1 09/18/2017 Active Bromfenac Sodium 0.07 % Ophthalmic Solution One drop daily in left eye 0 12/13/2017 Active zoster vac recomb adjuvanted (SHINGRIX) 50 MCG/0.5ML injection Inject 0.5 mL into a large muscle now and repeat dose in 60 to 180 days 1 Each 1 06/13/2019 Active Rocklatan 0.02-0.005 % Ophthalmic Solution (Netarsudil-Latano prost) Instill 2 Drops into the left eye daily. 0 Active Brimonidine Tartrate 0.15 % Ophthalmic Solution (Alphagan P) Instill 1 Drop into the left eye in the morning and 1 Drop at noon and 1 Drop before bedtime. 0 12/23/2020 Active Polymyxin B-Trimethoprim 31398-4.1 UNIT/ML-% Ophthalmic Solution (Polytrim) Instill 2 Drops into the right eye in the morning and 2 Drops before bedtime. 0 11/30/2020 Active Levemir 100 UNIT/ML Subcutaneous Solution (insulin Detemir)Indication s:Type 2 diabetes mellitus with hemoglobin A1c goal of less than 7.0% ([facility]) INJECT 84 UNITS UNDER SKIN BEFORE BED 70 mL 5 05/28/2022 Active Warfarin Sodium 7.5 MG Oral Tablet (Coumadin)Indicati ons:Venous thrombosis,Anticoa gulation management encounter Take 0.5 Tablets by mouth every evening. Or as directed by [facility] 45 Tablet 3 10/02/2022 Active Furosemide 40 MG Oral Tablet (Lasix)Indications :Edema, unspecified TAKE ONE DAILY AND ADDITIONAL ONE 2 DAYS PER WEEK 120 Tablet 3 10/25/2022 Active Terazosin HCl 2 MG Oral CapsuleIndications :HTN, goal below 140/80,Mitral stenosis TAKE 1 CAPSULE BY MOUTH EVERY DAY 90 Capsule 1 10/25/2022 Active metFORMIN HCl 1000 MG Oral Tablet (Glucophage)Indica tions:Type 2 diabetes mellitus with hemoglobin A1c goal of 7.0%-8.0% ([facility]) TAKE 1 TABLET BY MOUTH IN THE MORNING AND BEFORE BEDTIME 180 Tablet 1 10/25/2022 Active Sotalol HCl 120 MG Oral TabletIndications: Chronic atrial fibrillation (HCC) TAKE 1 TABLET BY MOUTH TWICE A DAY 180 Tablet 1 10/25/2022 Active Allopurinol 100 MG Oral Tablet (Zyloprim)Indicati ons:Gout TAKE 2 TABLETS BY MOUTH EVERY DAY 180 Tablet 1 10/25/2022 Active Metoprolol Succinate ER 25 MG Oral Tablet Extended Release 24 Hour (toPROL XL)Indications:Aor tocoronary bypass status,S/P aortic valve replacement TAKE 1 TABLET BY MOUTH TWICE A DAY 180 Tablet 1 10/25/2022 Active Insulin Syringe-Needle U-100 30G X 1/2" 1 ML (BD Insulin Syringe U/F) Use with insulin 4 times a day 400 Each 3 03/06/2023 Active OneTouch Ultra In Vitro Strip (Glucose Blood)Indications: Type 2 diabetes mellitus with hemoglobin A1c goal of less than 7.0% (HCC) Use to test blood glucose twice a day E11.9 200 Strip 3 03/06/2023 Active Insulin Aspart 100 UNIT/ML Injection Solution (NovoLOG)Indicatio ns:Type 2 diabetes mellitus with hemoglobin A1c goal of less than 7.0% (HCC) INJECT 15 UNITS SUBCUTANEOUSLY WITH BREAKFAST 15 UNITS WITH LUNCH AND 20 UNITS WITH SUPPER DAILY 40 mL 1 03/14/2023 Active Ezetimibe-Simvasta tin 10-40 MG Oral TabletIndications: Dyslipidemia, goal LDL below 70 TAKE 1 TABLET BY MOUTH EVERY DAY 90 Tablet 1 03/14/2023 Active Aspirin 81 MG Oral Tablet Chewable (Aspirin Low Dose)Indications:C hronic ischemic heart disease,S/P aortic valve replacement,Paroxy smal atrial fibrillation (HCC) TAKE 1 TABLET 3 TIMES A WEEK 40 Tablet 3 03/13/2023 Active documented as of this encounter (statuses as of 04/10/2023) Active Problems Problem Noted Date Diagnosed Date Pulmonary HTN 03/27/2023 Central retinal vein occlusion of right eye 0507/2021 Chronic diastolic congestive heart failure 09/01 Obesity, Class I, BMI 30.0-34.9 (see actual BMI) 02/28/2021 Primary open angle glaucoma (POAG) of both eyes 02/28/2021 History of basal cell carcinoma of skin 02/29/20 Type 2 diabetes mellitus wit h stage 3a chronic kidney disease, with long-term current use of insulin 08/18/2020 Paroxysmal atrial fibrillation 09/16/2018 Current use of insulin 08/15/2017 HTN, goal below 140/90 11/29/2015 Overview: Per HTN Protocol PETER inhibitor nephrotoxicity 11/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 Pernicious anemia 08/03/2008 CORONARY ATHEROSCLER. OF [place] CORONARY VESSEL 08/28/2006 S/P AORTIC VALVE REPLACEMENT-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 long-term current use of anticoagulant therapy 1 08/04/2002 Overview: ICD-10 update of inactive term Anticoagulation management encounter 12/18/2001 CHR ISCHEMIC HRT DIS NOS 01/22/2001 GENERAL OSTEOARTHROSIS 01/22/2001 SBE (subacute bacterial endocarditis) prophylaxi s candidate documented as of this encounter (statuses as of 04/10/2023) Resolved Problems Problem Noted Date Diagnosed Date Resolved Date Impacted cerumen of left ear 07/10/2016 11/16/2016 Epistaxis, recurrent 07/10/2016 017 HTN, goal below 140/80 06/22/201112/01 Overview: Per HTN Protocol Atrial fibrillation 11/22/2009 09/17/19 19 Severe obesity with body mas s index (BMI) of 35.0 to 39.9 with serious comorbidity 09/13/2009 Overview: Per Obesity Taxonomy ICD-10 update of inactive diagnosis Type 2 diabetes mellitus wit h stage 3 chronic kidney disease, with long-term current use of insulin 04/15/2009 08/18/2020 Overview: Per Diabetes Taxonomy. Added per DM w/ renal complications protocol #4 DIAB RENAL MANIF ADULT 01/08/200804/15 Overview: Per Diabetes Taxonomy. Added per DM w/ renal complications protocol #4 Aortic valve stenosis 03/05/20062016 ADVANCE DIRECTIVE INFORMATION 03/24/2005 09/07/2022 Venous thrombosis 12/18/2001 04/16/2017 Dyslipidemia, goal to be determined 02/19/2001 06/02/2009 Overview: Per Lipid Taxonomy. DEEP PHLEBITIS-LEG NEC 01/22/200111/16 HYPERTENSION NOS 01/22/2001 05/11/2009 Overview: Modified per HTN protocol #16. Type 2 diabetes mellitus wit h hemoglobin A1c goal of less than 7.0% 01/22/2001 04/15/2009 Overview: Per Diabetes Taxonomy. ICD-10 update of inactive term Peptic ulcer 01/22/2001 04/16/2017 Morbid obesity, BMI not known 09/13/2009 Overview: Per Obesity Taxonomy documented as of this encounter (statuses as of 04/10/2023) Immunizations Name Administration Dates Next Due Influenza, Whole Virus 03/20/2007,2001,05/14/2001,03/19,05/10/1998,04/21/1997,05/06/19 96,05/01/1995,04/12/1993 Pneumococcal Conjugate Vacc, 13 Valent (Prevnar) 06/16/2015 Pneumococcal Polysaccharide PPV23 (Pneumovax) 11/18/2007,04/22/2001 SEASONAL INFLUENZA, PF, 6 M & Above, IM , (FLULAVAL or FLUZONE) 03/08/2018,03/26/2017 Season Influenza, Quad, PF, Adjuvanted, 65+ Yrs, IM (FLUAD) 04/15/2020 Seasonal Influenza, Quadriva lent Hd (Fluzone Hd) 02/28/2021 Seasonal Influenza, Quadriva lent, No Preserve, IM 02/23/2016 Seasonal Influenza, Split, I IV3, With Preserve, Inj 03/04/2015,03/06/2014,03/04/2013,03/18,03/01/2011,03/29/2010,02/24/20 09,03/19/2008,04/26/2006,04/04/2005,1 08/04/2002 03/04/2016 Seasonal Influenza, Trivalen t, Adjuvanted, 65+ yrs 03/04/2019 TD - Tetanus/Diptheria (ADULT) 01/01/2002 TDAP (age 10 and older)(Boostrix) 09/30/2012 Varicella Zoster Vaccine (Adult) 06/22/2011 documented as of this encounter Social History Tobacco Use Types Packs/Day Years Used Date Smoking Tobacco: Former Cigarettes Q uit: 06/18/1969 Smokeless Tobacco: Never Alcohol Use Standard Drinks/Week Comments No 0 (1 standard drink = 0.6 oz pur e alcohol) PHQ-2 Answer Date Recorded PHQ Adult Total Score 0 03/27/2023 Hunger Vital Sign Answer Date Recorded Within the past 12 months, y ou worried that your food would run out before you got the money to buy more. Never true 09/08/19 23 Within the past 12 months, t he food you bought just didn't last and you didn't have money to get more. Never true 09/07/2022 Sex and Gender Information Value Date Recorded Sex Assigned at Not on file Gender Identity Not on file Sexual Orientation Not on file Job Start Date Occupation Industry Not on file Not on file Not on file documented as of this encounter Miscellaneous Notes * Telephone Encounter - Dione Cabrera LPN - 04/10/2023 3:42 PM EDT Patient aware and verbalized understanding * Telephone Encounter - Tracy Barrera LPN - 03/28/2023 2:53 PM EDT Attempted to contact pt l/m on answering machine for pt to call the office. Tracy Barrera LPN * Telephone Encounter - Tracy Barrera LPN - 03/28/2023 2:53 PM EDT ----- Message from Keyshawn Jeter PA-C sent at 03/28/2023 12:34 PM EDT ----- Iron looks to be slowly improving. Blood counts stable. Recommend continuing supplement. B12 level good. Slight increase in A1C. Watch carbohydrate intake. documented in this encounter Plan of Treatment Upcoming Encounters Date Type Department Care Team (Late st Contact Info) Description 04/23/2023 11:10 AM EST Anticoagulation Pharmacy, [facility] [address] [facility] [place] [address] Pharmacist1, [facility] [address] [facility] [place] [address] 06/22/2023 1:30 PM EST Office Visit Cardiology, [facility] [address] [place] [address] Tho Park MD [address] [place] [address] 10/03/2023 10:40 AM EDT Office Visit General Internal Medicine [facility] [address] [facility] [place] [address] Sourav Verde MD [address] [facility] [place] [address] Health Maintenance Due Date Last Done Comments DXA Scan 1940 COVID-19 Vaccine (#1) 1940 Hepatitis B (1 of 3 - Risk 3-dose series) 1999 Zoster Vaccines (2 of 3) 08/17/2011 06/22/2011 DTaP,Tdap,and Td Vaccines (2 - Td or Tdap) 09/30/2022 09/30/2012, 01/01/2002 Influenza Vaccine (FLU shot) (#1) 2023 02/28/2021, 04/15/2020, 03/04/2019, Additional history exists Diabetic Foot Exam 03/10/2023 03/10/2022, 0 11/01/2020, 12/15/2019, Additional history exists Albumin/Creatinine Ratio 09/22/2023 023, 09/01/2021, 08/18/2020, Additional history exists CKD PHOS USE SMARTSET 24217 09/22/2023 04/0 11/2022, 09/01/2021, 08/18/2020, Additional history exists GFR 09/26/2023 03/27/2023, 08/17, 04/10/2022, Additional history exists HbA1c 09/26/2023 03/27/2023, 04/0 11/2022, 03/10/2022, Additional history exists DIABETES-EYE EXAM 01/17/2024 01/16/2023, , 09/04/2022, Additional history exists CKD HGB USE SMARTSET 90161 03/27/202403/27, 11/09/2022, 11/09/2022, Additional history exists Depression Screening 03/27/2024 03/27/2023 Pneumococcal Vaccine: 65+ Years Completed 06/16/2015, 11/18/2007, 04/22/2001 GARDASIL-HPV IMMUNIZATION SERIES Aged Out No longer eligible based on patient's age to complete this topic MENINGOCOCCAL (MENACTRA/MENVEO) Aged Out No longer eligible based on patient's age to complete this topic documented as of this encounter Medical Devices Not on filedocumented as of this encounter Care Teams Stabilizing Machine Operator Relationship Specialty Start Date End Date Sourav Verde MD [address] [place] [address] PCP - General Internal Medicine 02/28/21 documented as of this encounter
--- OUTSIDE RECORDS SUMMARY | 2023-04-27 08:50 | External Medical Summary | Summary of Care ---
Author Name Unknown Organization [facility] Address [address] [place] [address] Phone [phone] Care Team Providers Care Export Coordinator Name Role Phone Sourav Verde MD Primary Care Provider + Reason for Visit * Reason Comments Dosage Adjustment In Person (Anticoag Cl inic) Encounter Details Date Type Department Care Team (Latest Contact Info) Description 04/09/2023 2:00 PM EDT Anticoagulation Pharmacy, [facility] [address] [place] [address] Pharmacist1, [facility] [address] [facility] [place] [address] S/P AORTIC VALVE REPLACEMENT-[place]* Allergies Active Allergy Reactions Criticality Noted Date Comments Niacin Er Flushing,Itching 03/29/2010 documented as of this encounter (statuses as of 04/09/2023) Medications Medication Sig Dispensed Refills Start Date End Date Status NITROGLYCERIN 0.4 MG SL SUBLIndications:Alex herring ischemic heart disease one tab under tongue [...] before bedtime. 0 12/23/2020 Active Polymyxin B-Trimethoprim 29255-5.1 UNIT/ML-% Ophthalmic Solution (Polytrim) Instill 2 Drops into the right eye in the morning and 2 Drops before bedtime. 0 11/30/2020 Active Levemir 100 UNIT/ML Subcutaneous Solution (insulin Detemir)Indication s:Type 2 diabetes mellitus with hemoglobin A1c goal of less than 7.0% ([facility]) INJECT 84 UNITS UNDER SKIN BEFORE BED [...] mellitus with hemoglobin A1c goal of 7.0%-8.0% ([facility]) TAKE 1 TABLET BY MOUTH IN THE [...] hemoglobin A1c goal of less than 7.0% ([facility]) Use to test blood glucose twice a day E11.9 200 Strip 3 03/06/2023 Active Insulin Aspart 100 UNIT/ML Injection Solution (NovoLOG)Indicatio ns:Type 2 diabetes mellitus with hemoglobin A1c goal of less than 7.0% ([facility]) INJECT 15 UNITS SUBCUTANEOUSLY WITH BREAKFAST 15 [...] as of this encounter (statuses as of 04/09/2023) Active Problems Problem Noted Date Diagnosed Date Pulmonary HTN 03/27/2023 Central retinal vein occlusion of right eye 07/2021 Chronic diastolic congestive heart failure 09/01 Obesity, [...] Taxonomy. Pernicious anemia 08/03/2008 CORONARY ATHEROSCLER. OF [place] CORONARY VESSEL 08/28/2006 S/P AORTIC VALVE REPLACEMENT-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 1 08/04/2002 Overview: ICD-10 update of inactive term Anticoagulation management encounter 12/18/2001 CHR ISCHEMIC HRT DIS NOS 01/22/2001 GENERAL OSTEOARTHROSIS 01/22/2001 SBE (subacute bacterial endocarditis) prophylaxi s candidate documented as of this encounter (statuses as of 04/09/2023) Resolved Problems Problem Noted Date Diagnosed Date [...] as of this encounter (statuses as of 04/09/2023) Immunizations Name Administration Dates Next Due Influenza, Whole Virus 03/20/2007 Pneumococcal Conjugate Vacc, 13 Valent (Prevnar) 06/16/2015 Pneumococcal Polysaccharide PPV23 (Pneumovax) 11/18/2007 SEASONAL INFLUENZA, PF, 6 M & Above, IM , (FLULAVAL or FLUZONE) 03/08/2018,03/26/2017 Season Influenza, Quad, PF, Adjuvanted, 65+ Yrs, IM (FLUAD) 04/15/2020 Seasonal Influenza, Quadriva lent Hd (Fluzone Hd) 02/28/2021 Seasonal Influenza, Quadriva lent, No Preserve, IM 02/23/2016 Seasonal Influenza, Split, I IV3, With Preserve, Inj 03/04/2015,03/06/2014,03/04/2013,03/18,03/01/2011,03/29/2010,02/24/20 09,03/19/2008,04/26/2006 03/04/2016 Seasonal Influenza, Trivalen t, Adjuvanted, 65+ yrs 03/04/2019 TDAP (age 10 and older)(Boostrix) 09/30/2012 Varicella [...] on file documented as of this encounter Progress Notes * Perico Llamas RPh - 04/09/2023 2:14 PM EDT [phone] (home) Agree with plan as documented. Perico Mancini RPh, CACP, CDE Clinical Pharmacist Medication Therapy Management [facility] 04/09/2023 2:14 PM * Nimisha Zapata, Pharmacy Dental Instructor - 04/09/2023 1:57 PM EDT Images from the original note were not included. Medication Therapy Disease Management - Anticoagulation Patient: Kieran Rojas | : 1940 Subjective Patient-Reported Symptoms: Patient Findings Negatives: Signs/symptoms of thrombosis, Signs/symptoms of bleeding, Change in health, Change in alcohol use, Change in activity, Upcoming invasive procedure, Missed doses, Extra doses, Change in medications, Change in diet/appetite, Bruising Objective Current Warfarin Dose As of 04/09/2023 Warfarin maintenance plan: 0 mg every Sun, Ana Luisa; 3.75 mg (7.5 mg x 0.5) all other days INR Result As of 04/09/2023 INR goal: 2.5-3.0 INR used for dosin.6 (04/09/2023) Assessment & Plan Warfarin Plan As of 04/09/2023 Full warfarin instructions: 04/09: 7.5 mg; Otherwise 0 mg every Sun, Ana Luisa; 3.75 mg all other days Next INR check: 04/23/2023 Repeat PT/INR in 2 week(s) Weekly dose: not changed Additional Dosing Information: Description Vitamin K 2.5mg 03/26 Nimisha Zapata PharmD PGY1 [facility] 04/09/2023 2:08 PM documented in this encounter Plan of Treatment Upcoming Encounters Date Type Department Care Team (Late st Contact Info) Description 04/23/2023 11:10 AM EST Anticoagulation Pharmacy, [facility] [address] [facility] [place] [address] Pharmacist1, [facility] [address] [facility] [place] [address] 06/22/2023 1:30 PM EST Office Visit Cardiology, [facility] [address] [facility] [place] [address] Tho Park MD [address] [facility] [place] [address] 10/03/2023 10:40 AM EDT Office Visit General Internal Medicine [facility] [address] [facility] [place] [address] Sourav Verde MD [address] [facility] [place] [address] Health Maintenance Due Date Last Done Comments [...] Additional history exists CKD PHOS USE SMARTSET 14837 09/22/2023 04/0 11/2022, 09/01/2021, 08/18/2020, Additional history exists GFR 09/26/2023 03/27/2023, 03/2 , 04/10/2022, Additional history exists HbA1c 09/26/2023 03/27/2023, 04/0 11/2022, 03/10/2022, Additional history exists DIABETES-EYE EXAM 01/17/2024 01/16/2023, , 09/04/2022, Additional history exists CKD HGB USE SMARTSET 34324 03/27/202403/27, 11/09/2022, 11/09/2022, Additional history exists Depression Screening 03/27/2024 03/27/2023 Pneumococcal Vaccine: 65+ Years Completed 06/16/2015, 11/18/2007, 04/22/2001 GARDASIL-HPV IMMUNIZATION SERIES Aged Out No longer eligible based on patient's age to complete this topic MENINGOCOCCAL (MENACTRA/MENVEO) Aged Out No longer eligible based on patient's age to complete this topic documented as of this encounter Medical Devices Not on filedocumented as of this encounter Procedures Procedure Name Priority Date/Time Associated Diagnosis Comments INR FINGERSTICK, POINT OF CARE GURU 04/09/2023 2:02 PM EDT documented in this encounter Results * INR FINGERSTICK, POINT OF CARE (04/09/2023 2:02 PM EDT) Fingerstick INR 1.6 INR 2:09 PM EDT [facility]02 Blood 04/09/2023 2:02 PM EDT 04/09/2023 2:09 PM EDT Narrative [facility] 56-02 - 04/09/2023 2:09 PM EDT Therapeutic ranges for non-operative patients: Prophylaxsis/treatment of DVT: (Range:2.0-3.0) Treatment of pulmonary embolism:(Range:2.0-3.0) Prevention of systemic embolism from: -tissue heart valves -acute myocardial infarction -valvular heart disease -atrial fibrillation (Range: 2.0-3.0) Mechanical prosthetic valves: (Range: 2.5-3.5) [facility] Pharmacist1 LAB POINT OF C ARE TEST DOCKED DEVICE UNSOLICITED RESULTS [facility] 56-02 [address] [facility] [place] [address] documented in this encounter Visit Diagnoses Diagnosis S/P AORTIC VALVE REPLACEMENT-[place]- Primary Heart valve replaced by other means documented in this encounter Care Teams Export Coordinator Relationship Specialty Start Date End Date Sourav Verde MD [address] [facility] [place] [address] PCP - General Internal Medicine 02/28/21 documented as of this encounter
--- OUTSIDE RECORDS SUMMARY | 2023-04-27 08:51 | External Medical Summary ---
Author Name Unknown Address Unknown Organization [id number]:[facility] [place] [address] Laboratory Report Ordering Provider Test Date Status TRUMAN LIGHT V 03/27/2023 13:35:52 Final Therapeutic ranges for non-o perative patients:
Prophylaxsis/treatment of DVT: (Range:2.0-3.0)
Treatment of pulmonary embolism:(Range:2.0-3.0)
Prevention of systemic embolism from:
-tissue heart valves
-acute myocardial infarction
-valvular heart disease
-atrial fibrillation
(Range: 2.0-3.0)
Mechanical prosthetic valves: (Range: 2.5-3.5) Observation Date Value Abnormality Reference (Units ) Status INR in Capillary blood by Coagulation assay 03/27/2023 13:35:52 6.9 (INR) Final Performing Location [facility] [place] [address]
--- OUTSIDE RECORDS SUMMARY | 2023-04-27 08:51 | External Medical Summary ---
Author Name Unknown Address Unknown Organization [id number]:[facility] - [address] [place] [address] Laboratory Report Ordering Provider Test Date Status ALEXANDERDORIS 03/27/2023 14:21:53 Final Observation Date Value Abnormality Reference (Units ) Status Iron 03/27/2023 14:21:53 46 45-176 (ug/dL) Final Iron-binding capacity 03/27/2023 14:21:53 368 250-425 (ug/dL) Final Transferrin Sat % 03/27/2023 14:21:53 13 Below low normal 15-55 (%) Final Performing Location [facility] - [address] [place] [address]
--- OUTSIDE RECORDS SUMMARY | 2023-04-27 08:51 | External Medical Summary | Summary of Care ---
Author Name Unknown Organization [facility] Address [address] [place] [address] Phone [phone] Care Team Providers Care Sap Project Manager Name Role Phone Sourav Verde MD Primary Care Provider + Reason for Visit * Reason Onset Date Comments Test Results 03/28/2023 Encounter Details Date Type Department Care Team Description 03/28/2023 Telephone General Internal Medicine [facility] [address] [facility] [place] [id number] Keyshawn Jeter PA-C [address] [facility] [place] [address] Test Results Allergies Active Allergy Reactions Severity Noted Date Comments Niacin Er Flushing,Itching 03/29/2010 documented as of this encounter (statuses as of 03/28/2023) Medications Medication Sig Dispensed Refills Start Date [...] before bedtime. 0 12/23/2020 Active Polymyxin B-Trimethoprim 57707-0.1 UNIT/ML-% Ophthalmic Solution (Polytrim) Instill 2 Drops into the right eye in the morning and 2 Drops before bedtime. 0 11/30/2020 Active Levemir 100 UNIT/ML Subcutaneous Solution (insulin Detemir)Indication s:Type 2 diabetes mellitus with hemoglobin A1c goal of less than 7.0% ([facility]) INJECT 84 UNITS UNDER SKIN BEFORE BED [...] mellitus with hemoglobin A1c goal of 7.0%-8.0% ([facility]) TAKE 1 TABLET BY MOUTH IN THE [...] hemoglobin A1c goal of less than 7.0% ([facility]) INJECT 15 UNITS SUBCUTANEOUSLY WITH BREAKFAST 15 [...] as of this encounter (statuses as of 03/28/2023) Active Problems Problem Noted Date Pulmonary HTN 03/27/2023 Central retinal vein occlusion of right eye 10/17/2021 Chronic diastolic congestive heart failu re 09/01/2021 Obesity, Class I, BMI 30.0-34.9 (see act ual BMI) 02/28/2021 Primary open angle glaucoma (POAG) of derek th eyes 02/28/2021 History of basal cell carcinoma of skin 02/28/2021 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 Pernicious anemia 08/03/2008 CORONARY ATHEROSCLER. OF [place] CORONARY VESSEL 08/28/2006 S/P AORTIC VALVE REPLACEMENT-[place] Aortocoronary bypass status 06/29/2006 salvage determiner current use of anticoagulant t herapy 06/03/2003 Overview: ICD-10 update of inactive term Anticoagulation management encounter 08/2001 CHR ISCHEMIC HRT DIS NOS 01/22/2001 GENERAL OSTEOARTHROSIS 01/22/2001 SBE (subacute bacterial endocarditis) pr ophylaxis candidate documented as of this encounter (statuses as of 03/28/2023) Resolved Problems Problem Noted Date Resolved Date Impacted cerumen of left ear 07/10/201606/2016 Epistaxis, recurrent 07/10/2016 04/16/2017 HTN, goal below 140/80 06/22/2011 6 Overview: Per HTN Protocol Atrial fibrillation 11/22/2009 09/16/2018 Severe obesity with body mas s index (BMI) of 35.0 to 39.9 with serious comorbidity 09/13/2009 04/17/2018 Overview: Per Obesity Taxonomy ICD-10 update of inactive diagnosis Type 2 diabetes mellitus wit h stage 3 chronic kidney disease, with long-term current use of insulin 04/15/2009 021 Overview: Per Diabetes Taxonomy. Added per DM w/ renal complications protocol #4 DIAB RENAL MANIF ADULT 01/08/2008 9 Overview: Per Diabetes Taxonomy. Added per DM w/ renal complications protocol #4 Aortic valve stenosis 03/05/2006 04/16/2017 ADVANCE DIRECTIVE INFORMATION 03/24/2005 Venous thrombosis 12/18/2001 04/16/2017 Dyslipidemia, goal to be determined 02/19/2001 06/02/2009 Overview: Per Lipid Taxonomy. DEEP PHLEBITIS-LEG NEC 01/22/2001 7 HYPERTENSION NOS 01/22/2001 05/11/2009 Overview: Modified per HTN protocol #16. Type 2 diabetes mellitus wit h hemoglobin A1c goal of less than 7.0% 01/22/2001 04/15/2009 Overview: Per Diabetes Taxonomy. ICD-10 update of inactive term Peptic ulcer 01/22/2001 04/16/2017 Morbid obesity, BMI not known Overview: Per Obesity Taxonomy documented as of this encounter (statuses as of 03/28/2023) Immunizations Name Administration Dates Next Due Influenza, [...] Influenza, Split, I IV3, With Preserve, Inj 03/04/2015,03/06/2014,03/04/2013,03/18,03/01/2011,03/29/2010,02/24/20,03/19/2008,04/26/2006 03/04/2016 Seasonal Influenza, Trivalen t, Adjuvanted, 65+ yrs 03/04/2019 TDAP (age 10 and older)(Boostrix) 09/30/2012 Varicella Zoster Vaccine (Adult) 06/22/2011 documented as of this encounter Social History Tobacco Use Types Packs/Day Years Used Date Smoking Tobacco: Former Cigarettes Q uit: 06/18/1969 Smokeless Tobacco: Never Alcohol Use Standard Drinks/Week Comments No 0 (1 standard drink = 0.6 oz pur e alcohol) Food Insecurity Answer Date Recorded Within the past 12 months, y ou worried that your food would run out before you got money to buy more. Never true 09/07/2022 Within the past 12 months, t he food you bought just didn't last and you didn't have money to get more. Never true 09/07/2022 Sex Assigned at Date Recorded Not on file Job Start Date Occupation Industry Not on file Not on file Not on file documented as of this encounter Miscellaneous Notes * Telephone Encounter - Tracy Barrera LPN [...] Plan of Treatment Upcoming Encounters Date Type Specialty Care Team Description 04/09/2023 Anticoagulation Pharmacy Pharmacist1, [facility] [address] [place] [address] 06/22/2023 Office Visit Cardiology Tho Park MD [address] [place] [address] 10/03/2023 Office Visit Internal Medicine Sourav Verde MD [address] [place] [address] Health Maintenance Due Date Last Done Comments DXA Scan 1940 COVID-19 Vaccine (#1) 1940 Zoster Vaccines (2 of 3) 08/17/2011 06/22/2011 DTaP,Tdap,and Td Vaccines (2 - Td or Tdap) 09/30/2022 09/30/2012, 01/01/2002 Influenza Vaccine (FLU shot) (#1) 2023 02/28/2021, 04/15/2020, 03/04/2019, Additional history exists Diabetic Foot Exam 03/10/2023 03/10/2022, 0 11/01/2020, 12/15/2019, Additional history exists Albumin/Creatinine Ratio 09/22/2023 023, 09/01/2021, 08/18/2020, Additional history exists CKD PHOS USE SMARTSET 49617 09/22/2023 04/0 11/2022, 09/01/2021, 08/18/2020, Additional history exists GFR 09/26/2023 03/27/2023, 03/2 , 04/10/2022, Additional history exists HbA1c 09/26/2023 03/27/2023, 04/0 11/2022, 03/10/2022, Additional history exists DIABETES-EYE EXAM 01/17/2024 01/16/2023, , 09/04/2022, Additional history exists CKD HGB USE SMARTSET 86165 03/27/202403/27, 11/09/2022, 11/09/2022, Additional history exists Depression Screening 03/27/2024 03/27/2023 Pneumococcal Vaccine: 65+ Years Completed 06/16/2015, 11/18/2007, 04/22/2001 GARDASIL-HPV IMMUNIZATION SERIES Aged Out No longer eligible based on patient's age to complete this topic Hepatitis B Aged Out No longer eligi ble based on patient's age to complete this topic MENINGOCOCCAL (MENACTRA/MENVEO) Aged Out No longer eligible based on patient's age to complete this topic documented as of this encounter Medical Devices Not on filedocumented as of this encounter Care Teams Sap Project Manager Relationship Specialty Start Date End Date Sourav Verde MD [address] [place] [address], [place] [address] PCP - General Internal Medicine 02/28/21 documented as of this encounter
--- OUTSIDE RECORDS SUMMARY | 2023-04-27 08:51 | External Medical Summary | Summary of Care ---
Author Name Unknown Organization [facility] Address [address] [place] [address] Phone [phone] Care Team Providers Care Nurse Practitioner Manager Name Role Phone Sourav Verde MD Primary Care Provider + Reason for Visit * Reason Comments Outpatient Testing Encounter Details Date Type Department Care Team Description 03/27/2023 Laboratory Laboratory [facility] [place] [address] [place] [address] [facility] [address] [place] [id number] Iron deficiency anemia, unspecified iron deficiency anemia type; Pernicious anemia; HTN, goal below 140/90; Type 2 diabetes mellitus with stage 3a chronic kidney disease, with long-term current use of insulin ([facility]) Allergies Active Allergy Reactions Severity Noted Date Comments Niacin Er Flushing,Itching 03/29/2010 documented as of this encounter (statuses as of 03/27/2023) Medications Medication Sig Dispensed Refills Start Date [...] before bedtime. 0 12/23/2020 Active Polymyxin B-Trimethoprim 94277-1.1 UNIT/ML-% Ophthalmic Solution (Polytrim) Instill 2 Drops into the right eye in the morning and 2 Drops before bedtime. 0 11/30/2020 Active Levemir 100 UNIT/ML Subcutaneous Solution (insulin Detemir)Indication s:Type 2 diabetes mellitus with hemoglobin A1c goal of less than 7.0% ([facility]) INJECT 84 UNITS UNDER SKIN BEFORE BED [...] mellitus with hemoglobin A1c goal of 7.0%-8.0% ([facility]) TAKE 1 TABLET BY MOUTH IN THE [...] hemoglobin A1c goal of less than 7.0% ([facility]) Use to test blood glucose twice a day E11.9 200 Strip 3 03/06/2023 Active Insulin Aspart 100 UNIT/ML Injection Solution (NovoLOG)Indicatio ns:Type 2 diabetes mellitus with hemoglobin A1c goal of less than 7.0% ([facility]) INJECT 15 UNITS SUBCUTANEOUSLY WITH BREAKFAST 15 [...] A WEEK 40 Tablet 3 03/13/2023 Active Myjvdyp-Pkdnly-Vol ll Pertussis 5-2.5-18.5 LF-MCG/0.5 Suspension Prefilled Syringe (Boostrix)Indicati ons:Need for diphtheria-tetanus -pertussis (Tdap) vaccine Inject 0.5 mL into a large muscle once for 1 dose. As directed 0.5 mL 0 03/27/2023 3 Active documented as of this encounter (statuses as of 03/27/2023) Active Problems Problem Noted Date Pulmonary HTN [...] Taxonomy. Pernicious anemia 08/03/2008 CORONARY ATHEROSCLER. OF [place] CORONARY VESSEL 08/28/2006 S/P AORTIC VALVE REPLACEMENT-[facility] Aortocoronary bypass status 06/29/2006 intermediate current use of anticoagulant t herapy 06/03/2003 Overview: ICD-10 update of inactive term Anticoagulation management encounter 08/2001 CHR ISCHEMIC HRT DIS NOS 01/22/2001 GENERAL OSTEOARTHROSIS 01/22/2001 SBE (subacute bacterial endocarditis) pr ophylaxis candidate documented as of this encounter (statuses as of 03/27/2023) Resolved Problems Problem Noted Date Resolved Date [...] as of this encounter (statuses as of 03/27/2023) Immunizations Name Administration Dates Next Due Influenza, [...] on file documented as of this encounter Plan of Treatment Upcoming Encounters Date Type Specialty Care Team Description 04/09/2023 Anticoagulation Pharmacy Pharmacist1, [facility] [address] [facility] [place] [address] 06/22/2023 Office Visit Cardiology Tho Park MD [address] [place] [address] 10/03/2023 Office Visit Internal Medicine Sourav Verde MD [address] [facility] [place] [address] Pending Results Name Type Priority Associated Diagnoses Date /Time FERRITIN Lab Routine Iron deficiency anemia, unspecified iron deficiency anemia type 03/27/2023 2:21 PM EDT IRON SCREEN, INCLUDING TIBC Lab Routine Iron deficiency anemia, unspecified iron deficiency anemia type 03/27/2023 2:21 PM EDT VITAMIN B12 Lab Routine Pernicious anemia 03/27/2023 2:21 PM EDT BASIC METABOLIC PANEL Lab Routine HTN, goal below 140/90 Type 2 diabetes mellitus with stage 3a chronic kidney disease, with long-term current use of insulin ([facility]) 03/27/2023 2:21 PM EDT HEMOGLOBIN A1C Lab Routine Type 2 diabetes mellitus with stage 3a chronic kidney disease, with long-term current use of insulin ([facility]) 03/27/2023 2:21 PM EDT Health Maintenance Due Date Last Done Comments DXA Scan 1940 COVID-19 Vaccine (#1) 1940 Zoster Vaccines (2 of 3) 08/17/2011 06/22/2011 DTaP,Tdap,and Td Vaccines (2 - Td or Tdap) 09/30/2022 09/30/2012, 01/01/2002 Influenza Vaccine (FLU shot) (#1) 2023 02/28/2021, 04/15/2020, 03/04/2019, Additional history exists GFR 03/07/2023 09/04/2022, 03/19, 03/10/2022, Additional history exists Depression Screening 03/10/2023 03/10/2022 Diabetic Foot Exam 03/10/2023 03/10/2022, 0 11/01/2020, 12/15/2019, Additional history exists HbA1c 03/23/2023 09/21/2022, 02/17, 12/01/2021, Additional history exists Albumin/Creatinine Ratio 09/22/2023 023, 09/01/2021, 08/18/2020, Additional history exists CKD PHOS USE SMARTSET 95775 09/22/2023 04/0 11/2022, 09/01/2021, 08/18/2020, Additional history exists CKD HGB USE SMARTSET 97502 11/10/202303/27, 11/09/2022, 11/09/2022, Additional history exists DIABETES-EYE EXAM 01/17/2024 01/16/2023, , 09/04/2022, Additional history exists Pneumococcal Vaccine: 65+ Years Completed 06/16/2015, 11/18/2007, [...] Procedure Name Priority Date/Time Associated Diagnosis Comments CBC Routine 03/27/2023 2:21 PM EDT Iron deficiency anemia, unspecified iron deficiency anemia type documented in this encounter Results * (ABNORMAL) CBC (03/27/2023 2:21 PM EDT) WBC 6.94 4.00 - 10.80 K/uL 03/27/2023 2:28 PM EDT [place] [address] RBC 4.06 4.50 - 5.25 M/uL 03/27/2023 2:28 PM EDT [place] [address] HGB 11.2(L) 14.0 - 16.8 g/dL 03/27/2023 2:[address]T [address] HCT 37.0(L) 40.0 - 48.4 % 03/27/2023 2:[address]T [address] MCV 91.1 82.0 - 99.5 fL 03/27/2023 2:28 PM [address]T [address] MCH 27.6 27.0 - 34.0 pg 03/27/2023 2:28 PM EDT [place] [address] MCHC 30.3 32.0 - 36.0 g/dL 03/27/2023 2:[address]T [address] RDW 16.8 11.5 - 15.5 % 03/27/2023 2:28 PM EDT [facility] 56 PLT 179 140 - 400 K/uL 03/27/2023 2:28 PM EDT [address] MPV 11.1 6.6 - 11.1 fL 03/27/2023 2:28 PM EDT [facility] 56 Blood Venous blood specimen / Unknown Venipuncture / Unknown 03/27/2023 2:21 PM EDT 03/27/2023 2:21 PM EDT Keyshawn Jeter PA-C LAB BLOOD ORDERABL ES [address] [place] [address] documented in this encounter Visit Diagnoses Diagnosis Iron deficiency anemia, unspecified iron deficiency anemia type Pernicious anemia HTN, goal below 140/90 Unspecified essential hypertension Type 2 diabetes mellitus with stage 3a chronic kidney disease, with long-term current use of insulin (HCC) documented in this encounter Care Teams Nurse Practitioner Manager Relationship Specialty Start Date End Date Sourav Verde MD [address] [place] [address] PCP - General Internal Medicine 02/28/21 documented as of this encounter
--- OUTSIDE RECORDS SUMMARY | 2023-04-27 08:51 | External Medical Summary | Summary of Care ---
Author Name Unknown Organization [facility] Address [address] [place] [address] Phone [phone] Care Team Providers Care Welder Gun Name Role Phone Sourav Verde MD Primary Care Provider + Reason for Visit * Reason Comments Dosage Adjustment In Person (Anticoag Cl inic) Encounter Details Date Type Department Care Team Description 03/27/2023 Anticoagulation Pharmacy, [facility] [address] [facility] [place] [address] Pharmacist1, [facility] [address] [facility] [place] [address] S/P aortic valve replacement*; Anticoagulation management encounter; terminal computer operator current use of anticoagulant therapy Allergies Active Allergy Reactions Severity Noted Date [...] before bedtime. 0 12/23/2020 Active Polymyxin B-Trimethoprim 44324-1.1 UNIT/ML-% Ophthalmic Solution (Polytrim) Instill 2 Drops into the right eye in the morning and 2 Drops before bedtime. 0 11/30/2020 Active Levemir 100 UNIT/ML Subcutaneous Solution (insulin Detemir)Indication s:Type 2 diabetes mellitus with hemoglobin A1c goal of less than 7.0% ([facility]) INJECT 84 UNITS UNDER SKIN BEFORE [...] mellitus with hemoglobin A1c goal of 7.0%-8.0% ([facility]) TAKE 1 TABLET BY MOUTH IN [...] of 03/27/2023) Active Problems Problem Noted Date Central retinal vein occlusion of right eye [...] Taxonomy. Pernicious anemia 08/03/2008 CORONARY ATHEROSCLER. OF [place] CORONARY VESSEL 08/28/2006 S/P AORTIC VALVE REPLACEMENT-[place] Aortocoronary bypass status 06/29/2006 skilled nursing current use of anticoagulant t herapy 06/03/2003 [...] Progress Notes * Perico Llamas RPh - 03/27/2023 1:37 PM EDT Images from the original note were not included. Medication Therapy Disease Management - Anticoagulation Kieran V Bob 1940 Description Vitamin K 2.5mg 03/26 Patient Findings Negatives: Signs/symptoms of thrombosis, Signs/symptoms of bleeding, Change in health, Change in alcohol use, Change in activity, Upcoming invasive procedure, Missed doses, Extra doses, Change in medications, Change in diet/appetite, Bruising INR Result As of 03/27/2023 INR goal: 2.5-3.0 INR used for dosin.9 (03/27/2023) Warfarin Plan As of 03/27/2023 Full warfarin instructions: 03/27: Hold; 03/28: Hold; 03/29: Hold; Otherwise 0 mg every Sun, Ana Luisa; 3.75 mg all other days Next INR check: 04/09/2023 Patient is going out of town on 03/29 and will be gone until 04/06. He understands he needs to go to the ER if he develops any bleeding he cannot control. Repeat PT/INR in 13 day(s) Weekly dose: decreased Perico Mancini RPh, CACOlga, CDE Clinical Pharmacist Medication Therapy Management [facility] 03/27/2023 1:44 PM documented in this encounter Plan of Treatment Upcoming Encounters Date Type Specialty Care Team Description 03/27/2023 Laboratory Laboratory Shaheen Winters [address] [place] [address] Arrived 04/09/2023 Anticoagulation Pharmacy Pharmacist, [facility] [address] [place] [address] 06/22/2023 Office Visit Cardiology Tho Park MD [address] [place] [address] 10/03/2023 Office Visit Internal Medicine Sourav Verde MD 200 [facility] [place] [address] Health Maintenance Due Date Last Done Comments [...] Additional history exists CKD PHOS USE SMARTSET 36354 09/22/2023 04/0 11/2022, 09/01/2021, 08/18/2020, Additional history exists CKD HGB USE SMARTSET 41656 11/10/202311/09, 11/09/2022, 09/01/2022, Additional history exists DIABETES-EYE EXAM 01/17/2024 01/16/2023, [...] Diagnosis Comments INR FINGERSTICK, POINT OF CARE STAT 03/27/2023 1:35 PM EDT S/P aortic valve replacement Anticoagulation management encounter terminal computer operator current use of anticoagulant therapy documented in this encounter Results * INR FINGERSTICK, POINT OF CARE (03/27/2023 1:35 PM EDT) Fingerstick INR 6.9 INR 1:46 PM EDT [facility] 56-02 Blood 03/27/2023 1:35 PM EDT 03/27/2023 1:46 PM EDT Narrative [facility] 56-02 - 03/27/2023 1:46 PM EDT Therapeutic ranges for non-operative patients: Prophylaxsis/treatment of DVT: (Range:2.0-3.0) Treatment of pulmonary embolism:(Range:2.0-3.0) Prevention of systemic embolism from: -tissue heart valves -acute myocardial infarction -valvular heart disease -atrial fibrillation (Range: 2.0-3.0) Mechanical prosthetic valves: (Range: 2.5-3.5) Perico Mancini V, h LAB POINT OF CARE TE ST DOCKED DEVICE UNSOLICITED RESULTS [facility] 56- 200 [facility] [place] [address] documented in this encounter Visit Diagnoses Diagnosis S/P aortic valve replacement- Primary Heart valve replaced by other means Anticoagulation management encounter Encounter for therapeutic drug monitoring terminal computer operator current use of anticoagulant therapy documented in this encounter Care Teams Welder Gun Relationship Specialty Start Date End Date [facility]de [facility] [phone] PCP - General Internal Medicine 02/28/21 documented as of this encounter
--- OUTSIDE RECORDS SUMMARY | 2023-04-27 08:51 | External Medical Summary ---
Author Name Unknown Address Unknown Organization K01:LABORATORY [facility] - [address] [place] [address] Laboratory Report Ordering Provider Test Date Status DORIS MUNOZ 03/27/2023 14:21:53 Final Observation Date Value Abnormality Reference (Units ) Status Vitamin B12 03/27/2023 14:21:53 [phone] (pg/mL) Final Performing Location LABORATORY [facility] - [address] [place] [address]
--- OUTSIDE RECORDS SUMMARY | 2023-04-27 08:51 | External Medical Summary | Summary of Care ---
Author Name Unknown Organization [facility] Address [address] [place] [address] Phone [phone] Care Team Providers Care Entry Level Accountant Name Role Phone Sourav Verde MD Primary Care Provider + Reason for Visit * Reason Comments Dosage Adjustment In Person (Anticoag Cl inic) Encounter Details Date Type Department Care Team Description 03/26/2023 Anticoagulation Pharmacy, [facility] [address] [facility] [place] [address] Pharmacist1, [facility] 200 [facility] [place] [address] S/P aortic valve replacement*; Anticoagulation management encounter; [facility]entiary current use of anticoagulant therapy Allergies Active Allergy Reactions Severity Noted Date Comments Niacin Er Flushing,Itching 03/29/2010 documented as of this encounter (statuses as of 03/26/2023) Medications Medication Sig Dispensed Refills Start Date [...] before bedtime. 0 12/23/2020 Active Polymyxin B-Trimethoprim 60650-3.1 UNIT/ML-% Ophthalmic Solution (Polytrim) Instill 2 Drops into the right eye in the morning and 2 Drops before bedtime. 0 11/30/2020 Active Levemir 100 UNIT/ML Subcutaneous Solution (insulin Detemir)Indication s:Type 2 diabetes mellitus with hemoglobin A1c goal of less than 7.0% ([facility]) INJECT 84 UNITS UNDER SKIN BEFORE [...] mellitus with hemoglobin A1c goal of 7.0%-8.0% ([facility]) TAKE 1 TABLET BY MOUTH IN [...] hemoglobin A1c goal of less than 7.0% ([facility]) INJECT 15 UNITS SUBCUTANEOUSLY WITH BREAKFAST [...] A WEEK 40 Tablet 3 03/13/2023 Active Hospital, Clinic, or Other Facility Administered Medication Ordered Dose Route Frequency Start Date End Date Status Phytonadione (Mephyton) tab 2.5 mgIndications:S/P aortic valve replacement,Anticoagulation management encounter,buttermaker continuous churn current use of anticoagulant therapy 2.5 mg OR ONCE 03/26/2023 03/27/2023 Act melissa documented as of this encounter (statuses as of 03/26/2023) Active Problems Problem Noted Date Central retinal [...] Taxonomy. Pernicious anemia 08/03/2008 CORONARY ATHEROSCLER. OF [place] CORONARY VESSEL 08/28/2006 S/P AORTIC VALVE REPLACEMENT-[facility] Aortocoronary bypass status 06/29/2006 penitentiary current use of anticoagulant t herapy 06/03/2003 Overview: ICD-10 update of inactive term Anticoagulation management encounter 08/2001 CHR ISCHEMIC HRT DIS NOS 01/22/2001 GENERAL OSTEOARTHROSIS 01/22/2001 SBE (subacute bacterial endocarditis) pr ophylaxis candidate documented as of this encounter (statuses as of 03/26/2023) Resolved Problems Problem Noted Date Resolved Date [...] as of this encounter (statuses as of 03/26/2023) Immunizations Name Administration Dates Next Due Influenza, [...] Progress Notes * Perico Llamas RPh - 03/26/2023 1:38 PM EDT Images from the original note were not included. Medication Therapy Disease Management - Anticoagulation Kieran Llamas Bob 1940 Patient Phone Numbers Patient Findings Positives: Change in activity (He has been less active the past 2 weeks - unable to walk much.) Negatives: Signs/symptoms of thrombosis, Signs/symptoms of bleeding, Change in health, Change in alcohol use, Upcoming invasive procedure, Missed doses, Extra doses, Change in medications, Change in diet/appetite, Bruising >8 via coaguchek INR Result As of 03/26/2023 INR goal: 2.5-3.0 INR used for dosing: >9.0 (03/26/2023) Warfarin Plan As of 03/26/2023 Full warfarin instructions: 03/26: Hold; 03/27: Hold; Otherwise 3.75 mg every day Next INR check: 03/29/2023 Vitamin K 2.5mg PO today (03/26) Repeat PT/INR in 1 day(s) Weekly dose: held Perico Mancini RPh, CACP, CDE Clinical Pharmacist Medication Therapy Management Clinic 03/26/2023 1:39 PM documented in this encounter Plan of Treatment Upcoming Encounters Date Type Specialty Care Team Description 03/27/2023 Anticoagulation Pharmacy Pharmacist1, [facility] [address] [place] [id number] 03/27/2023 Office Visit Internal Medicine Keyshawn Jeter PA-C 200 [facility] [place] [address] 06/22/2023 Office Visit Cardiology Tho Park MD [address] [place] [id number] Health Maintenance Due Date Last Done Comments [...] Additional history exists CKD PHOS USE SMARTSET 22059 09/22/2023 04/0 11/2022, 09/01/2021, 08/18/2020, Additional history exists CKD HGB USE SMARTSET 12241 11/10/202311/09, 11/09/2022, 09/01/2022, Additional history exists DIABETES-EYE [...] Comments INR FINGERSTICK, POINT OF CARE STAT 03/26/2023 1:34 PM EDT S/P aortic valve replacement Anticoagulation management encounter buttermaker continuous churn current use of anticoagulant therapy documented in this encounter Results * INR FINGERSTICK, POINT OF CARE (03/26/2023 1:34 PM EDT) Fingerstick INR >8.0 INR 2:18 PM EDT [facility] 56-02 Blood 03/26/2023 1:34 PM EDT 03/26/2023 2:18 PM EDT Narrative [facility] 56-02 - 03/26/2023 2:18 PM EDT Therapeutic ranges for non-operative patients: Prophylaxsis/treatment of DVT: (Range:2.0-3.0) Treatment of pulmonary embolism:(Range:2.0-3.0) Prevention of systemic embolism from: -tissue heart valves -acute myocardial infarction -valvular heart disease -atrial fibrillation (Range: 2.0-3.0) Mechanical prosthetic valves: (Range: 2.5-3.5) Perico Addis V, h LAB POINT OF CARE TE ST DOCKED DEVICE UNSOLICITED RESULTS [facility] [address] documented in this encounter Visit Diagnoses Diagnosis S/P aortic valve replacement- Primary Heart valve replaced by other means Anticoagulation management encounter Encounter for therapeutic drug monitoring buttermaker continuous churn current use of anticoagulant therapy documented in this encounter Care Teams Entry Level Accountant Relationship Specialty Start Date End Date Sourav Verde MD [address] [place] [address] PCP - General Internal Medicine 02/28/21 documented as of this encounter
--- OUTSIDE RECORDS SUMMARY | 2023-04-27 08:51 | External Medical Summary | Summary of Care ---
Author Name Unknown Organization [facility] Address [address] [place] [address] Phone [phone] Care Team Providers Care County Director Welfare Name Role Phone Sourav Verde MD Primary Care Provider + Reason for Visit * Reason Comments Follow Up 6 month. Patient sta stephanie MTM visit, PT/INR is High. Encounter Details Date Type Department Care Team Description 03/27/2023 Office Visit General [facility] [address] [facility] [place] [address] Keyshawn Jeter PA-C [address] [facility] [place] [address] Chronic diastolic congestive heart failure (HCC)*; Atherosclerosis of crow coronary artery of crow heart without angina pectoris; Nonrheumatic mitral valve stenosis; Paroxysmal atrial fibrillation (HCC); Type 2 diabetes mellitus with stage 3a chronic kidney disease, with long-term current use of insulin (HCC); HTN, goal below 140/90; DYSLIPIDEMIA, GOAL LDL BELOW 70; Chronic gout of left foot, unspecified cause; Pernicious anemia; Iron deficiency anemia, unspecified iron deficiency anemia type; Primary open angle glaucoma of both eyes, unspecified glaucoma stage; Need for zprjntzdhh-uxjvoxn-nai tussis (Tdap) vaccine; Supratherapeutic INR; S/P AORTIC VALVE REPLACEMENT-[facility]; Pulmonary HTN (HCC); Dental erosion Allergies Active Allergy Reactions Severity Noted Date [...] before bedtime. 0 12/23/2020 Active Polymyxin B-Trimethoprim 47835-5.1 UNIT/ML-% Ophthalmic Solution (Polytrim) Instill 2 Drops into the right eye in the morning and 2 Drops before bedtime. 0 11/30/2020 Active Levemir 100 UNIT/ML Subcutaneous Solution (insulin Detemir)Indication s:Type 2 diabetes mellitus with hemoglobin A1c goal of less than 7.0% ([facility]) INJECT 84 UNITS UNDER SKIN BEFORE BED [...] CAPSULE BY MOUTH EVERY DAY 90 Capsule 10/25/2022 Active metFORMIN HCl 1000 MG Oral Tablet (Glucophage)Indica tions:Type 2 diabetes mellitus with hemoglobin A1c goal of 7.0%-8.0% ([facility]) TAKE 1 TABLET BY MOUTH IN THE MORNING AND BEFORE BEDTIME 180 Tablet 10/25/2022 Active Sotalol HCl 120 MG Oral TabletIndications: Chronic atrial fibrillation (HCC) TAKE 1 TABLET BY MOUTH TWICE A DAY 180 Tablet 10/25/2022 Active Allopurinol 100 MG Oral Tablet (Zyloprim)Indicati ons:Gout TAKE 2 TABLETS BY MOUTH EVERY DAY 180 Tablet 10/25/2022 Active Metoprolol Succinate ER 25 MG Oral Tablet Extended Release 24 Hour (toPROL XL)Indications:Aor tocoronary bypass status,S/P aortic valve replacement TAKE 1 TABLET BY MOUTH TWICE A DAY 180 Tablet 10/25/2022 Active Insulin Syringe-Needle U-100 30G X 1/2" 1 ML (BD Insulin Syringe U/F) Use with insulin 4 times a day 400 Each 3 03/06/2023 Active OneTouch Ultra In Vitro Strip (Glucose Blood)Indications: Type 2 diabetes mellitus with hemoglobin A1c goal of less than 7.0% ([facility]) Use to test blood glucose twice a day E11.9 200 Strip 03/06/2023 Active Insulin Aspart 100 UNIT/ML Injection Solution (NovoLOG)Indicatio ns:Type 2 diabetes mellitus with hemoglobin A1c goal of less than 7.0% ([facility]) INJECT 15 UNITS SUBCUTANEOUSLY WITH BREAKFAST 15 UNITS WITH LUNCH AND 20 UNITS WITH SUPPER DAILY 40 mL 03/14/2023 Active Ezetimibe-Simvasta tin 10-40 MG Oral TabletIndications: Dyslipidemia, goal LDL below 70 TAKE 1 TABLET BY MOUTH EVERY DAY 90 Tablet 03/14/2023 Active Aspirin 81 MG Oral Tablet Chewable (Aspirin Low Dose)Indications:C hronic ischemic heart disease,S/P aortic valve replacement,Paroxy smal atrial fibrillation (HCC) TAKE 1 TABLET 3 TIMES A WEEK 40 Tablet 3 03/13/2023 Active Gpmumwu-Lzvbqe-Fqz ll Pertussis 5-2.5-18.5 LF-MCG/0.5 Suspension Prefilled Syringe [...] Taxonomy. Pernicious anemia 08/03/2008 CORONARY ATHEROSCLER. OF [place] CORONARY VESSEL 08/28/2006 S/P AORTIC VALVE REPLACEMENT-[facility] Aortocoronary bypass status 06/29/2006 care home current use of anticoagulant t herapy 06/03/2003 [...] Cigarettes Q uit: 06/18/1969 Smokeless Tobacco: Never Tobacco Cessation:Counseling Given: Not Answered Alcohol Use Standard Drinks/Week Comments No 0 [...] on file documented as of this encounter Last Filed Vital Signs Vital Sign Reading Time Taken Comments Blood Pressure 120/62 03/27/2023 1:57 PM EDT Pulse 83 03/27/2023 1:57 PM EDT Temperature 37.2 C (99 F) 03/27/2023 1:57 PM EDT Respiratory Rate - - Oxygen Saturation 93% 03/27/2023 1:57 PM EDT Inhaled Oxygen Concentration - - Weight 97.2 kg (214 lb 3.2 oz) 03/27/2023 1:57 P M EDT Height 180.3 cm (5' 11") 03/27/2023 1:57 PM EDT Body Mass Index 29.87 03/27/2023 1:57 PM EDT documented in this encounter Nursing Notes * Tracy Barrera LPN - 03/27/2023 1:55 PM EDT Chief Complaint Patient presents with Follow Up 6 month. Patient states MT visit, PT/INR is High. documented in this encounter Plan of Treatment Upcoming Encounters Date Type Specialty Care Team Description 03/27/2023 Laboratory [facility], [facility] 200 [facility] [place] [address] Iron deficiency anemia, unspecified iron deficiency anemia type; Pernicious anemia; HTN, goal below 140/90; Type 2 diabetes mellitus with stage 3a chronic kidney disease, with long-term current use of insulin ([facility]) 04/09/2023 Anticoagulation Pharmacy Pharmacist1, [facility] [address] [facility] [place] [address] 06/22/2023 Office Visit Cardiology Tho Park MD [address] [place] [address] 10/03/2023 Office Visit Internal Medicine Sourav Verde MD 200 [facility] [place] [phone] Pending Results Name Type Priority Associated Diagnoses [...] disease, with long-term current use of insulin ([facility]) 03/27/2023 2:21 PM EDT HEMOGLOBIN A1C Lab Routine Type 2 diabetes mellitus with stage 3a chronic kidney disease, with long-term current use of insulin ([facility]) 03/27/2023 2:21 PM EDT Scheduled Orders Name Type Priority Associated Diagnoses Orde r Schedule FERRITIN Lab Routine Iron deficiency anemia, unspecified iron deficiency anemia type Expected: 03/27/2023 (Approximate), Expires: 03/26/2024 IRON SCREEN, INCLUDING TIBC Lab Routine Iron deficiency anemia, unspecified iron deficiency anemia type Expected: 03/27/2023 (Approximate), Expires: 03/26/2024 VITAMIN B12 Lab Routine Pernicious anemia Expected: 03/27/2023 (Approximate), Expires: 03/26/2024 BASIC METABOLIC PANEL Lab Routine HTN, goal below 140/90 Type 2 diabetes mellitus with stage 3a chronic kidney disease, with long-term current use of insulin (HCC) Expected: 03/27/2023 (Approximate), Expires: 03/26/2024 HEMOGLOBIN A1C Lab Routine Type 2 diabetes mellitus with stage 3a chronic kidney disease, with long-term current use of insulin (HCC) Expected: 03/27/2023 (Approximate), Expires: 03/26/2024 Health Maintenance Due Date Last Done Comments [...] Additional history exists CKD PHOS USE SMARTSET 01093 09/22/2023 04/0 11/2022, 09/01/2021, 08/18/2020, Additional history exists CKD HGB USE SMARTSET 29317 11/10/202303/27, 11/09/2022, 11/09/2022, Additional history exists DIABETES-EYE [...] Not on filedocumented as of this encounter Results * (ABNORMAL) CBC (03/27/2023 2:21 PM EDT) WBC 6.94 4.00 - 10.80 K/uL 03/27/2023 2:28 PM EDT [facility] [place] 56 RBC 4.06 4.50 - 5.25 M/uL 03/27/2023 2:28 PM EDT [facility] 56 HGB 11.2(L) 14.0 - 16.8 g/dL 03/27/2023 2:28 PM EDT [facility] 56 HCT 37.0(L) 40.0 - 48.4 % 03/27/2023 2:28 PM EDT [facility] 56 MCV 91.1 82.0 - 99.5 fL 03/27/2023 2:28 PM EDT [facility] 56 MCH 27.6 27.0 - 34.0 pg 03/27/2023 2:28 PM EDT [facility] 56 MCHC 30.3 32.0 - 36.0 g/dL 03/27/2023 2:28 PM EDT [facility] 56 RDW 16.8 11.5 - 15.5 % 03/27/2023 2:28 PM EDT [facility] 56- PLT 179 140 - 400 K/uL 03/27/2023 2:28 PM EDT [facility] MPV 11.1 6.6 - 11.1 fL 03/27/2023 2:28 PM EDT [facility] Blood Venous blood specimen / Unknown Venipuncture / Unknown 03/27/2023 2:21 PM EDT 03/27/2023 2:21 PM EDT Keyshawn Jeter PA-C LAB BLOOD ORDERABL ES [facility] 200 [place] [address] documented in this encounter Visit Diagnoses Diagnosis Chronic diastolic congestive heart failure (HCC)- Primary Chronic diastolic heart failure Atherosclerosis of crow coronary artery of crow heart without angina pectoris Nonrheumatic mitral valve stenosis Paroxysmal atrial fibrillation (HCC) Atrial fibrillation Type 2 diabetes mellitus with stage 3a chronic kidney disease, with long-term current use of insulin (HCC) HTN, goal below 140/90 Unspecified essential hypertension DYSLIPIDEMIA, GOAL LDL BELOW 70 Other and unspecified hyperlipidemia Chronic gout of left foot, unspecified cause Pernicious anemia Iron deficiency anemia, unspecified iron deficiency anemia type Primary open angle glaucoma of both eyes, unspecified glaucoma stage Need for aqzbeunhba-wmeymou-xttqluilo (Tdap) vaccine Need for prophylactic vaccination with combined zswtmztzhv-ixhagdo-lrfwxohie (DTP) vaccine Supratherapeutic INR Abnormal coagulation profile S/P AORTIC VALVE REPLACEMENT-[facility] Heart valve replaced by other means Pulmonary HTN (HCC) Other chronic pulmonary heart diseases Dental erosion Erosion of teeth, unspecified Iron deficiency anemia, unspecified iron deficiency anemia type Pernicious anemia HTN, goal below 140/90 Unspecified essential hypertension Type 2 diabetes mellitus with stage 3a chronic kidney disease, with long-term current use of insulin (HCC) documented in this encounter Care Teams County Director Welfare Relationship Specialty Start Date End Date [facility] [address] PCP - General Internal Medicine 02/28/21 documented as of this encounter
--- OUTSIDE RECORDS SUMMARY | 2023-04-27 08:51 | External Medical Summary ---
Author Name Unknown Address Unknown Organization [id number]:[facility] [place] [address] Laboratory Report Ordering Provider Test Date Status DORIS MUNOZ 03/27/2023 14:21:53 Final Observation Date Value Abnormality Reference (Units ) Status WBC, Total 03/27/2023 14:21:53 6.94 4.00-10.8 0 (K/uL) Final RBC 03/27/2023 14:21:53 4.06 4.50-5.25 (M/uL) Final Hemoglobin 03/27/2023 14:21:53 11.2 Below low normal 14 .0-16.8 (g/dL) Final HCT 03/27/2023 14:21:53 37.0 Below low normal 40. 0-48.4 (%) Final MCV 03/27/2023 14:21:53 91.1 82.0-99.5 (fL) Final MCH 03/27/2023 14:21:53 27.6 27.0-34.0 (pg) Final MCHC 03/27/2023 14:21:53 30.3 32.0-36.0 (g/dL) Final RDW 03/27/2023 14:21:53 16.8 11.5-15.5 (%) Final Platelets 03/27/2023 14:21:53 179 140-400 (K /uL) Final MPV 03/27/2023 14:21:53 11.1 6.6-11.1 ( fL) Final Performing Location [facility] [place] [address]
--- OUTSIDE RECORDS SUMMARY | 2023-04-27 08:51 | External Medical Summary ---
Author Name Unknown Address Unknown Organization [id number]:[facility] - [address] [facility] [address] Laboratory Report Ordering Provider Test Date Status DORIS MUNOZ 03/27/2023 14:21:53 Final Observation Date Value Abnormality Reference (Units ) Status HbA1C 03/27/2023 14:21:53 7.4 Above high normal 4. 0-5.6 (%) Final The use of HbA1c to monitor glycemic status is based on normal hemoglobin and HbA composition. This test should not be used in patients with abnormal hemoglobin that affects the half life of the red blood cell or the in vivo glycation rates. Glucose, estimated average 03/27/2023 14:21:53 166 Above high normal <126 (mg/dL) Benji fontenot Performing Location [facility] - [address] [facility] [address]
--- OUTSIDE RECORDS SUMMARY | 2023-04-27 08:51 | External Medical Summary ---
Author Name Unknown Address Unknown Organization [id number]:[facility] [place] [address] Laboratory Report Ordering Provider Test Date Status DORIS MUNOZ 03/27/2023 14:21:53 Final Observation Date Value Abnormality Reference (Units ) Status BUN 03/27/2023 14:21:53 29 Above high normal 6-20 (mg/dL) Final Creatinine 03/27/2023 14:21:53 1.2 0.6-1.2 (mg/dL) Final Glomerular filtration rate/1.73 sq M.predicted [Volume Rate/Area] in Serum, Plasma or Blood by Creatinine-based formula (CKD-EPI) 03/27/2023 14:21:53 62 >=60 (mL/min) Final eGFR is calculated based on the CKD-EPI 2020 equation SODIUM 03/27/2023 14:21:53 139 135-146 (m mol/L) Final Potassium 03/27/2023 14:21:53 4.0 3.5-5.1 (m mol/L) Final Cl 03/27/2023 14:21:53 103 98-107 (mm ol/L) Final CO2 03/27/2023 14:21:53 23 22-32 (mmo l/L) Final Anion gap 03/27/2023 14:21:53 13 7-15 (mmol /L) Final Glucose 03/27/2023 14:21:53 154 Above high normal 70 -120 (mg/dL) Final Calcium 03/27/2023 14:21:53 9.6 8.4-10.2 ( mg/dL) Final Performing Location [facility] [place] [address]
--- OUTSIDE RECORDS SUMMARY | 2023-04-27 08:51 | External Medical Summary ---
Author Name Unknown Address Unknown Organization [id number]:[facility] - [address] [place] [address] Laboratory Report Ordering Provider Test Date Status DORIS MUNOZ 03/27/2023 14:21:53 Final Observation Date Value Abnormality Reference (Units ) Status Ferritin 03/27/2023 14:21:53 113 30-400 (ng /mL) Final Performing Location [facility] - [address] [place] [address]
--- OUTSIDE RECORDS SUMMARY | 2023-04-27 08:52 | External Medical Summary | Summary of Care ---
Author Name Unknown Organization [facility] Address [address] [place] [facility] [address] Phone [phone] Care Team Providers Care Centrifugal Wax Molder Name Role Phone Sourav Verde MD Primary Care Provider + Encounter Details Date Type Department Care Team Description 01/17/2023 Orders Only General Internal Medicine [facility] [address] [place] [place] [address] Sourav Verde MD 200 [place] [address] Allergies Active Allergy Reactions Severity Noted Date Comments Niacin Er Flushing,Itching 03/29/2010 documented as of this encounter (statuses as of 01/17/2023) Medications Medication Sig Dispensed Refills Start Date [...] before bedtime. 0 12/23/2020 Active Polymyxin B-Trimethoprim 89953-0.1 UNIT/ML-% Ophthalmic Solution (Polytrim) Instill 2 Drops into the right eye in the morning and 2 Drops before bedtime. 0 11/30/2020 Active BD Insulin Syringe U/F 30G X 1/2" 1 ML (Insulin Syringe-Needle U-100) USE WITH INSULIN 4 TIMES A DAY 400 Each 3 05/09/2021 Active OneTouch Ultra In Vitro Strip (Glucose Blood)Indications: Type 2 diabetes mellitus with hemoglobin A1c goal of less than 7.0% ([facility]) TEST GLUCOSE TWICE DAILY DX E11.9 200 Strip 11 11/01/2021 Active Aspirin 81 MG Oral Tablet Chewable (Aspirin Low Dose)Indications:C hronic ischemic heart disease,S/P aortic valve replacement,Paroxy smal atrial fibrillation (HCC) 1 TABLET BY MOUTH 3 TIMES PER WEEK. 36 Tablet 11 02/03/2022 Active Levemir 100 UNIT/ML Subcutaneous Solution (insulin Detemir)Indication s:Type 2 diabetes mellitus with hemoglobin A1c goal of less than 7.0% (HCC) INJECT 84 UNITS UNDER SKIN BEFORE BED [...] mellitus with hemoglobin A1c goal of 7.0%-8.0% (HCC) TAKE 1 TABLET BY MOUTH IN THE MORNING AND BEFORE BEDTIME 180 Tablet 1 10/25/2022 Active Insulin Aspart 100 UNIT/ML Injection Solution (NovoLOG)Indicatio ns:Type 2 diabetes mellitus with hemoglobin A1c goal of less than 7.0% (HCC) INJECT 15 UNITS SUBCUTANEOUSLY WITH BREAKFAST 15 UNITS WITH LUNCH AND 20 UNITS WITH SUPPER DAILY 40 mL 1 10/25/2022 Active Sotalol HCl 120 MG [...] A DAY 180 Tablet 1 10/25/2022 Active Ezetimibe-Simvasta tin 10-40 MG Oral TabletIndications: Dyslipidemia, goal LDL below 70 TAKE 1 TABLET BY MOUTH EVERY DAY 90 Tablet 1 10/25/2022 Active documented as of this encounter (statuses as of 01/17/2023) Active Problems Problem Noted Date Central retinal [...] Taxonomy. Pernicious anemia 08/03/2008 CORONARY ATHEROSCLER. OF [place] CORONARY VESSEL 08/28/2006 S/P AORTIC VALVE REPLACEMENT-[place] Aortocoronary bypass status 06/29/2006 correction current use of anticoagulant t herapy 06/03/2003 Overview: ICD-10 update of inactive term Anticoagulation management encounter 08/2001 CHR ISCHEMIC HRT DIS NOS 01/22/2001 GENERAL OSTEOARTHROSIS 01/22/2001 SBE (subacute bacterial endocarditis) pr ophylaxis candidate documented as of this encounter (statuses as of 01/17/2023) Resolved Problems Problem Noted Date Resolved Date [...] as of this encounter (statuses as of 01/17/2023) Immunizations Name Administration Dates Next Due Influenza, Whole Virus 03/20/2007 Pneumococcal Conjugate Vacc, 13 Valent (Prevnar) 06/16/2015 Pneumococcal Polysaccharide PPV23 (Pneumovax) 11/18/2007 Seasonal Influenza, Quadriva lent Hd (Fluzone Hd) 02/28/2021 Seasonal Influenza, Quadriva lent, No Preserve, 6 Mons & Above, IM 03/08/2018,03/26/2017 Seasonal Influenza, Quadriva lent, No Preserve, Adjuvanted, 65+ Yrs, IM 04/15/2020 Seasonal Influenza, Quadriva lent, No Preserve, IM [...] Encounters Date Type Specialty Care Team Description 01/18/2023 Anticoagulation Pharmacy Pharmacist1, [facility] [place] [address] 03/26/2023 Office Visit Internal Medicine Sourav Verde MD 200 [facility] [place] [address] 06/22/2023 Office Visit Cardiology Tho Park MD [address] [place] [address] Health Maintenance Due Date Last Done Comments DXA Scan 1940 COVID-19 Vaccine (#1) 1940 Zoster Vaccines (2 of 3) 08/17/2011 06/22/2011 DTaP,Tdap,and Td Vaccines (2 - Td or Tdap) 09/30/2022 09/30/2012, 01/01/2002 Influenza Vaccine (FLU shot) (#1) 2023 02/28/2021, 04/15/2020, 03/04/2019, Additional history exists GFR 03/07/2023 09/04/2022, 03/19, 03/10/2022, Additional history exists DIABETES-FOOT EXAM 03/10/2023 03/10/2022, 0 11/01/2020, 12/15/2019, Additional history exists Depression Screening, Annual for Pts 12 and Over 03/10/2023 03/10/2022 HbA1c 03/23/2023 09/21/2022, 02/17, 12/01/2021, Additional history exists Albumin/Creatinine Ratio 09/22/2023 023, 09/01/2021, 08/18/2020, Additional history exists CKD PHOS USE SMARTSET 42886 09/22/2023 04/0 11/2022, 09/01/2021, 08/18/2020, Additional history exists CKD HGB USE SMARTSET 32323 11/10/202311/09, 11/09/2022, 09/01/2022, Additional history exists DIABETES-EYE [...] Procedure Name Priority Date/Time Associated Diagnosis Comments DIABETIC EYE EXAM Routine 01/16/2023 documented in this encounter Results * DIABETIC EYE EXAM (01/16/2023) 01/16/2023 History Per Patient OTHER OUTSIDE LAB (SEE SCANNED REPORT) documented in this encounter Care Teams Centrifugal Wax Molder Relationship Specialty Start Date End Date Sourav Verde MD [address] [place] [address] PCP - General Internal Medicine 02/28/21 documented as of this encounter
--- OUTSIDE RECORDS SUMMARY | 2023-04-27 08:52 | External Medical Summary | Summary of Care ---
Author Name Unknown Organization [facility] Address [address] [place] [address] Phone [phone] Care Team Providers Care Sky Cap Name Role Phone Sourav Verde MD Primary Care Provider + Reason for Visit * Reason Comments Dosage Adjustment In Person (Anticoag Cl inic) Encounter Details Date Type Department Care Team Description 01/18/2023 Anticoagulation Pharmacy, [facility] [place] [address] Pharmacist1, [facility] 200 [facility] [place] [phone] S/P aortic valve replacement*; Anticoagulation management encounter; ap operator current use of anticoagulant therapy Allergies Active Allergy Reactions Severity Noted Date Comments Niacin Er Flushing,Itching 03/29/2010 documented as of this encounter (statuses as of 01/18/2023) Medications Medication Sig Dispensed Refills Start Date [...] before bedtime. 0 12/23/2020 Active Polymyxin B-Trimethoprim 62860-0.1 UNIT/ML-% Ophthalmic Solution (Polytrim) Instill 2 Drops into the right eye in the morning and 2 Drops before bedtime. 0 11/30/2020 Active BD Insulin Syringe U/F 30G X 1/2" 1 ML (Insulin Syringe-Needle U-100) USE WITH INSULIN 4 TIMES A DAY 400 Each 3 05/09/2021 Active OnePF Management Services[employer] Ultra In Vitro Strip (Glucose Blood)Indications: Type 2 diabetes mellitus with hemoglobin A1c goal of less than 7.0% ([facility]) TEST GLUCOSE TWICE DAILY DX E11.9 200 [...] as of this encounter (statuses as of 01/18/2023) Active Problems Problem Noted Date Central retinal [...] Taxonomy. Pernicious anemia 08/03/2008 CORONARY ATHEROSCLER. 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 Aortocoronary bypass status 06/29/2006 senior care current use of anticoagulant t herapy 06/03/2003 Overview: ICD-10 update of inactive term Anticoagulation management encounter 08/2001 CHR ISCHEMIC HRT DIS NOS 01/22/2001 GENERAL OSTEOARTHROSIS 01/22/2001 SBE (subacute bacterial endocarditis) pr ophylaxis candidate documented as of this encounter (statuses as of 01/18/2023) Resolved Problems Problem Noted Date Resolved Date [...] as of this encounter (statuses as of 01/18/2023) Immunizations Name Administration Dates Next Due Influenza, [...] Progress Notes * Perico Llamas RPh - 01/18/2023 12:24 PM EDT [phone] (home) Agree with plan as documented. Perico Mancini RPh, CACP, CDE Clinical Pharmacist [facility] 01/18/2023 12:24 PM * Ajay Mehta, Pharmacy Economic Forecaster - 01/18/2023 10:12 AM EDT Images from the original note were not included. Medication Therapy Disease Management - Anticoagulation Patient: Kieran Rojas | : 1940 Subjective Patient-Reported Symptoms: Patient Findings Negatives: Signs/symptoms of thrombosis, Signs/symptoms of bleeding, Change in health, Change in alcohol use, Change in activity, Upcoming invasive procedure, Missed doses, Extra doses, Change in medications, Change in diet/appetite, Bruising Objective Current Warfarin Dose As of 01/18/2023 INR Result As of 01/18/2023 INR goal: 2.5-3.0 INR used for dosin.2 (01/18/2023) Assessment & Plan Warfarin Plan As of 01/18/2023 Full warfarin instructions: 01/18: Hold; Otherwise 3.75 mg every day Next INR check: 02/15/2023 Repeat PT/INR in 4 week(s) Weekly dose: not changed Additional Dosing Information: Ajay Mehta, Pharmacy Economic Forecaster Clinical Pharmacist 01/18/2023, 10:12 AM documented in this encounter Plan of Treatment Upcoming Encounters Date Type Specialty Care Team Description 02/15/2023 Anticoagulation Pharmacy Pharmacist1, [facility] [address] [place] [address] 03/26/2023 [facility] [address] [place] [address] 06/22/2023 Office Visit Cardiology Tho Park MD [address] [place] [address] Health Maintenance Due Date Last Done Comments [...] Additional history exists CKD PHOS USE SMARTSET 28164 09/22/2023 04/0 11/2022, 09/01/2021, 08/18/2020, Additional history exists CKD HGB USE SMARTSET 80933 11/10/202311/09, 11/09/2022, 09/01/2022, Additional history exists DIABETES-EYE [...] Comments INR FINGERSTICK, POINT OF CARE STAT 01/18/2023 10:18 AM EDT S/P aortic valve replacement Anticoagulation management encounter senior care current use of anticoagulant therapy documented in this encounter Results * INR FINGERSTICK, POINT OF CARE (01/18/2023 10:18 AM EDT) Fingerstick INR 3.2 INR 10:20 AM EDT [facility] 56- Blood 01/18/2023 10:1 8 AM EDT 01/18/2023 10:20 AM EDT Narrative [facility] 56-02 - 01/18/2023 10:20 AM EDT Therapeutic ranges for non-operative patients: Prophylaxsis/treatment of DVT: (Range:2.0-3.0) Treatment of pulmonary embolism:(Range:2.0-3.0) Prevention of systemic embolism from: -tissue heart valves -acute myocardial infarction -valvular heart disease -atrial fibrillation (Range: 2.0-3.0) Mechanical prosthetic valves: (Range: 2.5-3.5) Perico Vazquezk V, h LAB POINT OF CARE TE ST DOCKED DEVICE UNSOLICITED RESULTS [facility] 56 200 [facility] [place] [address] documented in this encounter Visit Diagnoses Diagnosis S/P aortic valve replacement- Primary Heart valve replaced by other means Anticoagulation management encounter Encounter for therapeutic drug monitoring ap operator current use of anticoagulant therapy documented in this encounter Care Teams Sky Cap Relationship Specialty Start Date End Date Sourav Verde MD 200 [facility] [place] [address] PCP - General Internal Medicine 02/28/21 documented as of this encounter
--- OUTSIDE RECORDS SUMMARY | 2023-04-27 08:52 | External Medical Summary ---
Author Name Unknown Address Unknown Organization K09:[facility] [place] [address] Laboratory Report Ordering Provider Test Date Status TRUMAN LIGHT V 03/26/2023 13:41:28 Final Warfarin Therapy
INR: 2 .0-3.0 conventional anticoagulation
INR: 2.5- 3.5 high intensity anticoagulation Observation Date Value Abnormality Reference (Units ) Status PT 03/26/2023 13:41:28 >70.0 Above high normal 11 .6-15.2 (seconds) Final Results rechecked. INR 03/26/2023 13:41:28 >9.0 Above upper panic li mits 0.8-1.2 Final Results rechecked. Performing Location [facility] [place] [address]
--- OUTSIDE RECORDS SUMMARY | 2023-04-27 08:52 | External Medical Summary | Summary of Care ---
Author Name Unknown Organization [facility] Address [address] [place] [place] [address] Phone [phone] Care Team Providers Care Manager Math Name Role Phone Sourav Verde MD Primary Care Provider + Reason for Visit * Reason Onset Date Comments Test Results 11/10/2022 Encounter Details Date Type Department Care Team Description 11/10/2022 Telephone General Internal Medicine [facility] 200 [facility] [place] [address] Sourav Verde MD 200 [place] [address] Test Results Allergies Active Allergy Reactions Severity Noted Date Comments Niacin Er Flushing,Itching 03/29/2010 documented as of this encounter (statuses as of 11/30/2022) Medications Medication Sig Dispensed Refills Start Date [...] before bedtime. 0 12/23/2020 Active Polymyxin B-Trimethoprim 47648-1.1 UNIT/ML-% Ophthalmic Solution (Polytrim) Instill 2 Drops [...] goal of less than 7.0% ([facility]) TEST GLUCOSE TWICE DAILY DX E11.9 200 [...] goal of less than 7.0% ([facility]) INJECT 84 UNITS UNDER SKIN BEFORE BED [...] TWICE A DAY 180 Tablet 10/25/2022 Active Ezetimibe-Simvasta tin 10-40 MG Oral TabletIndications: Dyslipidemia, goal LDL below 70 TAKE 1 TABLET BY MOUTH EVERY DAY 90 Tablet 1 10/25/2022 Active documented as of this encounter (statuses as of 11/30/2022) Active Problems Problem Noted Date Central retinal [...] Taxonomy. Pernicious anemia 08/03/2008 CORONARY ATHEROSCLER. OF [place] CORONARY VESSEL 08/28/2006 S/P AORTIC VALVE REPLACEMENT-[place] Aortocoronary bypass status 06/29/2006 custodial current use of anticoagulant t herapy 06/03/2003 Overview: ICD-10 update of inactive term Anticoagulation management encounter 08/2001 CHR ISCHEMIC HRT DIS NOS 01/22/2001 GENERAL OSTEOARTHROSIS 01/22/2001 SBE (subacute bacterial endocarditis) pr ophylaxis candidate documented as of this encounter (statuses as of 11/30/2022) Resolved Problems Problem Noted Date Resolved Date [...] as of this encounter (statuses as of 11/30/2022) Immunizations Name Administration Dates Next Due Influenza, [...] Telephone Encounter - Dione Cabrera LPN - 11/22/2022 12:07 PM EDT MyG sent * Telephone Encounter - Vera Wong LPN - 11/10/2022 4:42 PM EDT Left message for patient to call back regarding message below. ----- Message from Sourav Verde MD sent at 11/10/2022 10:45 AM EDT ----- Hgb is decreased, BUT improving, iron is improving as well. Suggest recheck labs 3 months to follow. documented in this encounter Plan of Treatment Upcoming Encounters Date Type Specialty Care Team Description 12/14/2022 Anticoagulation Pharmacy Pharmacist1, [facility] [address] [place] [address] 03/26/2023 Office Visit Internal Medicine Sourav Verde MD 200 [facility] [place] [address] 06/22/2023 Office Visit Cardiology Tho Park MD [address] [place] [address] Health Maintenance Due Date Last Done Comments DXA Scan 1940 COVID-19 Vaccine (#1) 1940 Zoster Vaccines (2 of 3) 08/17/2011 06/22/2011 DTaP,Tdap,and Td Vaccines (2 - Td or Tdap) 09/30/2022 09/30/2012, 01/01/2002 Influenza Vaccine (FLU shot) (Season Ended) 2023 02/28/2021, 04/15/2020, 03/04/2019, Additional history exists GFR 03/07/2023 09/04/2022, 03/19, 03/10/2022, Additional history exists DIABETES-FOOT EXAM 03/10/2023 03/10/2022, 0 11/01/2020, 12/15/2019, Additional history exists Depression Screening, Annual for Pts 12 and Over 03/10/2023 03/10/2022 HbA1c 03/23/2023 09/21/2022, 02/17, 12/01/2021, Additional history exists Albumin/Creatinine Ratio 09/22/2023 023, 09/01/2021, 08/18/2020, Additional history exists CKD PHOS USE SMARTSET 72275 09/22/2023 04/0 11/2022, 09/01/2021, 08/18/2020, Additional history exists DIABETES-EYE EXAM 10/19/2023 10/18/2022, , 07/11/2022, Additional history exists CKD HGB USE SMARTSET 71208 11/10/202311/09, 11/09/2022, 09/01/2022, Additional history exists Pneumococcal Vaccine: 65+ Years [...] filedocumented as of this encounter Care Teams Manager Math Relationship Specialty Start Date End Date Sourav Verde MD [address] [place], [place] [address] [address] PCP - General Internal Medicine 02/28/21 documented as of this encounter
--- OUTSIDE RECORDS SUMMARY | 2023-04-27 08:52 | External Medical Summary | Summary of Care ---
Author Name Unknown Organization [facility] Address [address] [place] [address] Phone [phone] Care Team Providers Care Internal Medicine Hospitalist Name Role Phone Sourav Verde MD Primary Care Provider + Reason for Visit * Reason Comments Dosage Adjustment In Person (Anticoag Cl inic) Encounter Details Date Type Department Care Team Description 02/15/2023 Anticoagulation Pharmacy, [facility] [address] [facility] [place] [address] Pharmacist1, [facility] 200 [facility] [place] [phone] S/P aortic valve replacement*; Anticoagulation management encounter; retirement current use of anticoagulant therapy Allergies Active Allergy Reactions Severity Noted Date Comments Niacin Er Flushing,Itching 03/29/2010 documented as of this encounter (statuses as of 02/15/2023) Medications Medication Sig Dispensed Refills Start Date [...] before bedtime. 0 12/23/2020 Active Polymyxin B-Trimethoprim 93774-4.1 UNIT/ML-% Ophthalmic Solution (Polytrim) Instill 2 Drops into the right eye in the morning and 2 Drops before bedtime. 0 11/30/2020 Active BD Insulin Syringe U/F 30G X 1/2" 1 ML (Insulin Syringe-Needle U-100) USE WITH INSULIN 4 TIMES A DAY 400 Each 3 05/09/2021 Active OneLoand[employer]uch Ultra In Vitro Strip (Glucose Blood)Indications: Type 2 diabetes mellitus with hemoglobin A1c goal of less than 7.0% ([facility]) TEST GLUCOSE TWICE DAILY DX E11.9 200 Strip 11 11/01/2021 Active Aspirin 81 MG Oral Tablet Chewable (Aspirin Low Dose)Indications:C hronic ischemic heart disease,S/P aortic valve replacement,Paroxy smal atrial fibrillation (HCC) 1 TABLET BY MOUTH 3 TIMES PER WEEK. 36 Tablet 11 02/03/2022 Active Levemir 100 UNIT/ML Subcutaneous Solution (insulin Detemir)Indication s:Type 2 diabetes mellitus with hemoglobin A1c goal of less than 7.0% ([facility]) INJECT 84 UNITS UNDER SKIN BEFORE BED [...] as of this encounter (statuses as of 02/15/2023) Active Problems Problem Noted Date Central retinal [...] Taxonomy. Pernicious anemia 08/03/2008 CORONARY ATHEROSCLER. OF [place] CORONARY VESSEL 08/28/2006 S/P AORTIC VALVE REPLACEMENT-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 herapy 06/03/2003 Overview: ICD-10 update of inactive term Anticoagulation management encounter 08/2001 CHR ISCHEMIC HRT DIS NOS 01/22/2001 GENERAL OSTEOARTHROSIS 01/22/2001 SBE (subacute bacterial endocarditis) pr ophylaxis candidate documented as of this encounter (statuses as of 02/15/2023) Resolved Problems Problem Noted Date Resolved Date [...] as of this encounter (statuses as of 02/15/2023) Immunizations Name Administration Dates Next Due Influenza, Whole Virus 03/20/2007 Pneumococcal Conjugate Vacc, 13 Valent (Prevnar) 06/16/2015 Pneumococcal Polysaccharide PPV23 (Pneumovax) 11/18/2007 Season Influenza, Quad, PF, Adjuvanted, 65+ Yrs, IM (FLUAD) 04/15/2020 Seasonal Influenza, PF, 6 mo ns & Above, IM , (Flulaval) 03/08/2018,03/26/2017 Seasonal Influenza, Quadriva lent Hd (Fluzone Hd) [...] Progress Notes * Perico Llamas RPh - 02/15/2023 11:01 AM EDT Images from the original note were not included. Medication Therapy Disease Management - Anticoagulation Kieran V Bob 1940 Patient Findings Negatives: Signs/symptoms of thrombosis, Signs/symptoms of bleeding, Change in health, Change in alcohol use, Change in activity, Upcoming invasive procedure, Missed doses, Extra doses, Change in medications, Change in diet/appetite, Bruising INR Result As of 02/15/2023 INR goal: 2.5-3.0 INR used for dosin.2 (02/15/2023) Warfarin Plan As of 02/15/2023 Full warfarin instructions: 3.75 mg every day Next INR check: 03/26/2023 Repeat PT/INR in 6 week(s) Weekly dose: not changed Perico Mancini RPh, CACP, CDE Clinical Pharmacist [facility]ication Therapy Management [facility] 02/15/2023 11:07 AM documented in this encounter Plan of Treatment Upcoming Encounters Date Type Specialty Care Team Description 03/26/2023 Anticoagulation Pharmacy Pharmacist, [facility] [address] [place] [address] 03/26/2023 Office Visit Internal Medicine Sourav Verde MD [address] [place] [address] 06/22/2023 Office Visit Cardiology Tho Park MD [address] [place] [address] Health Maintenance Due Date Last Done Comments [...] Additional history exists CKD PHOS USE SMARTSET 62091 09/22/2023 04/0 11/2022, 09/01/2021, 08/18/2020, Additional history exists CKD HGB USE SMARTSET 29467 11/10/202311/09, 11/09/2022, 09/01/2022, Additional history exists DIABETES-EYE [...] Comments INR FINGERSTICK, POINT OF CARE STAT 02/15/2023 11:04 AM EDT S/P aortic valve replacement Anticoagulation management encounter 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 documented in this encounter Results * INR FINGERSTICK, POINT OF CARE (02/15/2023 11:04 AM EDT) Fingerstick INR 3.2 INR 11:06 AM EDT [facility] 56- Blood 02/15/2023 11:0 4 AM EDT 02/15/2023 11:06 AM EDT Narrative [facility] 56-02 - 02/15/2023 11:06 AM EDT Therapeutic ranges for non-operative patients: Prophylaxsis/treatment of DVT: (Range:2.0-3.0) Treatment of pulmonary embolism:(Range:2.0-3.0) Prevention of systemic embolism from: -tissue heart valves -acute myocardial infarction -valvular heart disease -atrial fibrillation (Range: 2.0-3.0) Mechanical prosthetic valves: (Range: 2.5-3.5) Perico Addis V, h LAB POINT OF CARE TE ST DOCKED DEVICE UNSOLICITED RESULTS [facility]- [facility] [address] documented in this encounter Visit Diagnoses Diagnosis S/P aortic valve replacement- Primary Heart valve replaced by other means Anticoagulation management encounter Encounter for therapeutic drug monitoring retirement current use of anticoagulant therapy documented in this encounter Care Teams Internal Medicine Hospitalist Relationship Specialty Start Date End Date [facility] [address] P[facility] - General Internal Medicine 02/28/21 documented as of this encounter
--- OUTSIDE RECORDS SUMMARY | 2023-04-27 08:52 | External Medical Summary | Summary of Care ---
Author Name Unknown Organization [facility] Address [address] [place] [address] Phone [phone] Care Team Providers Care Insurance Verifier Name Role Phone Sourav Verde MD Primary Care Provider + Reason for Visit * Reason Comments Outpatient Testing Encounter Details Date Type Department Care Team Description 11/09/2022 Laboratory Laboratory [facility] [address] [place] [place] [address] [facility] [address] [place] [id number] Decreased hemoglobin Allergies Active Allergy Reactions Severity Noted Date Comments Niacin Er Flushing,Itching 03/29/2010 documented as of this encounter (statuses as of 11/09/2022) Medications Medication Sig Dispensed Refills Start Date [...] before bedtime. 0 12/23/2020 Active Polymyxin B-Trimethoprim 18260-7.1 UNIT/ML-% Ophthalmic Solution (Polytrim) Instill 2 Drops [...] goal of less than 7.0% ([facility]) TEST GLUCOSE TWICE DAILY DX E11.9 200 [...] as of this encounter (statuses as of 11/09/2022) Active Problems Problem Noted Date Central retinal [...] Taxonomy. Pernicious anemia 08/03/2008 CORONARY ATHEROSCLER. OF [place] CORONARY VESSEL 08/28/2006 S/P AORTIC VALVE REPLACEMENT-[facility] 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 [place] [address] 03/26/2023 Office Visit Internal Medicine Sourav Verde MD 200 [facility] [place] [address] 06/22/2023 Office Visit Cardiology Tho Park MD [address] [place] [address] Pending Results Name Type Priority Associated Diagnoses Date /Time CBC WITH WBC DIFFERENTIAL Lab Routine Decreased hemoglobin 11/09/2022 10:16 AM EDT FERRITIN Lab Routine Decreased hemoglobin 11/09/2022 10:16 AM EDT IRON SCREEN, INCLUDING TIBC Lab Routine Decreased hemoglobin 11/09/2022 10:16 AM EDT CBC Lab Routine Decreased hemoglobin 11/09/2022 10:16 AM EDT DIFFERENTIAL, AUTOMATED Lab Routine Decreased hemoglobin 11/09/2022 10:16 AM EDT Health Maintenance Due Date Last Done [...] 03/23/2023 09/21/2022, 02/17, 12/01/2021, Additional history exists CKD HGB USE SMARTSET 18697 09/02/202309/01, 09/01/2022, 08/03/2022, Additional history exists Albumin/Creatinine Ratio 09/22/2023 023, 09/01/2021, 08/18/2020, Additional history exists CKD PHOS USE SMARTSET 66401 09/22/2023 04/0 11/2022, 09/01/2021, 08/18/2020, Additional history exists DIABETES-EYE EXAM 10/19/2023 10/18/2022, , 07/11/2022, Additional history exists Pneumococcal Vaccine: 65+ Years [...] Not on filedocumented as of this encounter Visit Diagnoses Diagnosis Decreased hemoglobin Anemia, unspecified documented in this encounter Care Teams Insurance Verifier Relationship Specialty Start Date End Date Sourav Verde MD [address] [place] [address], [place] [address] PCP - General Internal Medicine 02/28/21 documented as of this encounter
--- OUTSIDE RECORDS SUMMARY | 2023-04-27 08:52 | External Medical Summary | Summary of Care ---
Author Name Unknown Organization [facility] Address [address] [place] [address] Phone [phone] Care Team Providers Care Pumper Helper Name Role Phone Sourav Hernandez MD Primary Care Provider + Reason for Visit * Reason Comments eRx-Medication Refill Encounter Details Date Type Department Care Team Description 03/13/2023 Refill General Internal Medicine [facility] 200 [facility] [place] [id number] Sourav Hernandez MD 200 [facility] [place] [id number] Type 2 diabetes mellitus with hemoglobin A1c goal of less than 7.0% ([facility]); Dyslipidemia, goal LDL below 70 Allergies Active Allergy Reactions Severity Noted Date Comments Niacin Er Flushing,Itching 03/29/2010 documented as of this encounter (statuses as of 03/14/2023) Medications Medication Sig Dispensed Refills Start Date End Date Status NITROGLYCERIN 0.4 MG SL SUBLIndications: Chronic ischemic heart disease one tab under tongue as needed for chest pain maximum 3 dose 25 5 9 Active ONE TOUCH ULTRASOFT LANCETS MISC Check glucose two times a day Dx 250.00 100 Each 5 5 Active dorzolamide-adrian lol (COSOPT OCUMETER PLUS) 2.23-0.68% ophthalmic solution 2 6 Active ONETOUCH ULTRASOFT LANCETS MISC CHECK GLUCOSE TWO TIMES A DAY DX E11.29 300 Each 1 8 Active Bromfenac Sodium 0.07 % Ophthalmic Solution One drop daily in left eye 0 8 Active zoster vac recomb adjuvanted (SHINGRIX) 50 MCG/0.5ML injection Inject 0.5 mL into a large muscle now and repeat dose in 60 to 180 days 1 Each 1 9 Active Rocklatan 0.02-0.005 % Ophthalmic Solution (Netarsudil-[place]ena noprost) Instill 2 Drops into the left eye daily. 0 Active Brimonidine Tartrate 0.15 % Ophthalmic Solution (Alphagan P) Instill 1 Drop into the left eye in the morning and 1 Drop at noon and 1 Drop before bedtime. 0 1 Active Polymyxin B-Trimethoprim 42156-8.1 UNIT/ML-% Ophthalmic Solution (Polytrim) Instill 2 Drops into the right eye in the morning and 2 Drops before bedtime. 0 1 Active Levemir 100 UNIT/ML Subcutaneous Solution (insulin Detemir)Indicati ons:Type 2 diabetes mellitus with hemoglobin A1c goal of less than 7.0% ([facility]) INJECT 84 UNITS UNDER SKIN BEFORE BED 70 mL 5 2 Active Warfarin Sodium 7.5 MG Oral Tablet (Coumadin)Indica tions:Venous thrombosis,Antic oagulation management encounter Take 0.5 Tablets by mouth every evening. Or as directed by [facility] clinic 45 Tablet 3 3 Active Furosemide 40 MG Oral Tablet (Lasix)Indicatio ns:Edema, unspecified TAKE ONE DAILY AND ADDITIONAL ONE 2 DAYS PER WEEK 120 Tablet 3 3 Active Terazosin HCl 2 MG Oral CapsuleIndicatio ns:HTN, goal below 140/80,Mitral stenosis TAKE 1 CAPSULE BY MOUTH EVERY DAY 90 Capsule 1 3 Active metFORMIN HCl 1000 MG Oral Tablet (Glucophage)Kathy cations:Type 2 diabetes mellitus with hemoglobin A1c goal of 7.0%-8.0% ([facility]) TAKE 1 TABLET BY MOUTH IN THE MORNING AND BEFORE BEDTIME 180 Tablet 1 3 Active Sotalol HCl 120 MG Oral TabletIndication s:Chronic atrial fibrillation (HCC) TAKE 1 TABLET BY MOUTH TWICE A DAY 180 Tablet 1 3 Active Allopurinol 100 MG Oral Tablet (Zyloprim)Indica tions:Gout TAKE 2 TABLETS BY MOUTH EVERY DAY 180 Tablet 1 3 Active Metoprolol Succinate ER 25 MG Oral Tablet Extended Release 24 Hour (toPROL XL)Indications:A ortocoronary bypass status,S/P aortic valve replacement TAKE 1 TABLET BY MOUTH TWICE A DAY 180 Tablet 1 3 Active Insulin Syringe-Needle U-100 30G X 1/2" 1 ML (BD Insulin Syringe U/F) Use with insulin 4 times a day 400 Each 3 3 Active Doctor Evidence Ultra In Vitro Strip (Glucose Blood)Indication s:Type 2 diabetes mellitus with hemoglobin A1c goal of less than 7.0% (HCC) Use to test blood glucose twice a day E11.9 200 Strip 3 3 Active Insulin Aspart 100 UNIT/ML Injection Solution (NovoLOG)Indicat ions:Type 2 diabetes mellitus with hemoglobin A1c goal of less than 7.0% (HCC) INJECT 15 UNITS SUBCUTANEOUSLY WITH BREAKFAST 15 UNITS WITH LUNCH AND 20 UNITS WITH SUPPER DAILY 40 mL 1 3 Active Ezetimibe-Simvas tatin 10-40 MG Oral TabletIndication s:Dyslipidemia, goal LDL below 70 TAKE 1 TABLET BY MOUTH EVERY DAY 90 Tablet 1 3 Active Aspirin 81 MG Oral Tablet Chewable (Aspirin Low Dose)Indications :Chronic ischemic heart disease,S/P aortic valve replacement,Paro xysmal atrial fibrillation (HCC) TAKE 1 TABLET 3 TIMES A WEEK 40 Tablet 3 3 Active Insulin Aspart 100 UNIT/ML Injection Solution (NovoLOG)Indicat ions:Type 2 diabetes mellitus with hemoglobin A1c goal of less than 7.0% (HCC) INJECT 15 UNITS SUBCUTANEOUSLY WITH BREAKFAST 15 UNITS WITH LUNCH AND 20 UNITS WITH SUPPER DAILY 40 mL 3 03/14/20 23 Discontinued Ezetimibe-Simvas tatin 10-40 MG Oral TabletIndication s:Dyslipidemia, goal LDL below 70 TAKE 1 TABLET BY MOUTH EVERY DAY 90 Tablet 1 3 03/14/20 23 Discontinued documented as of this encounter (statuses as of 03/14/2023) Active Problems Problem Noted Date Central retinal [...] Taxonomy. Pernicious anemia 08/03/2008 CORONARY ATHEROSCLER. 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 Aortocoronary bypass status 06/29/2006 long-term current use of anticoagulant t herapy 06/03/2003 Overview: ICD-10 update of inactive term Anticoagulation management encounter 08/2001 CHR ISCHEMIC HRT DIS NOS 01/22/2001 GENERAL OSTEOARTHROSIS 01/22/2001 SBE (subacute bacterial endocarditis) pr ophylaxis candidate documented as of this encounter (statuses as of 03/14/2023) Resolved Problems Problem Noted Date Resolved Date [...] protocol #4 DIAB RENAL MANIF ADULT 01/08/2008 Overview: Per Diabetes Taxonomy. Added per DM [...] as of this encounter (statuses as of 03/14/2023) Immunizations Name Administration Dates Next Due Influenza, [...] encounter Miscellaneous Notes * Telephone Encounter - Patrick Winchester RPh - 03/14/2023 8:45 AM EDTSigned Prescriptions: Disp Refills Insulin Aspart 100 UNIT/ML Injection Solut*40 mL 1 Sig: INJECT 15 UNITS SUBCUTANEOUSLY WITH BREAKFAST 15 UNITS WITH LUNCH AND 20 UNITS WITH SUPPER DAILYAuthorizing Provider: SOURAV HERNANDEZ User: PATRICK WINCHESTER Ezetimibe-Simvastatin 10-40 MG OralTablet 90 Tab*1 Sig: TAKE 1 TABLET BY MOUTH EVERY DAYAuthorizing Provider: SOURAV HERNANDEZ User: PATRICK WINCHESTER documented in this encounter Plan of Treatment Upcoming Encounters Date Type Specialty Care Team Description 03/26/2023 [facility] Pharmacy Pharmacist1, [facility] [address] [facility] [address] 03/27/2023 Office Visit Internal Medicine [facility] [address] 06/22/2023 Office Visit Cardiology Tho Park MD [address] [place] [address] Health Maintenance Due Date Last Done Comments [...] Additional history exists CKD PHOS USE SMARTSET 82482 09/22/2023 04/0 11/2022, 09/01/2021, 08/18/2020, Additional history exists CKD HGB USE SMARTSET 96002 11/10/202311/09, 11/09/2022, 09/01/2022, Additional history exists DIABETES-EYE [...] as of this encounter Visit Diagnoses Diagnosis Type 2 diabetes mellitus with hemoglobin A1c goal of less than 7.0% (HCC) Dyslipidemia, goal LDL below 70 Other and unspecified hyperlipidemia documented in this encounter Care Teams Pumper Helper Relationship Specialty Start Date End Date Sourav Hernandez MD [address] [place] [address], [place] [address] PCP - General Internal Medicine 02/28/21 documented as of this encounter
--- OUTSIDE RECORDS SUMMARY | 2023-04-27 08:52 | External Medical Summary | Summary of Care ---
Author Name Unknown Organization [facility] Address [address] [place] [address] Phone [phone] Care Team Providers Care Spot Washer Name Role Phone Sourav Verde MD Primary Care Provider + Reason for Visit * Reason Comments Outpatient Testing Encounter Details Date Type Department Care Team Description 03/26/2023 Laboratory Laboratory [facility] [place] [address] [place] [address] [facility] 200 [facility] [place] [phone] S/P aortic valve replacement; Anticoagulation management encounter; terminal carman current use of anticoagulant therapy Allergies Active [...] before bedtime. 0 12/23/2020 Active Polymyxin B-Trimethoprim 36732-6.1 UNIT/ML-% Ophthalmic Solution (Polytrim) Instill 2 Drops into the right eye in the morning and 2 Drops before bedtime. 0 11/30/2020 Active Levemir 100 UNIT/ML Subcutaneous Solution (insulin Detemir)Indication s:Type 2 diabetes mellitus with hemoglobin A1c goal of less than 7.0% ([facility]) INJECT 84 UNITS UNDER SKIN [...] mellitus with hemoglobin A1c goal of 7.0%-8.0% ([facility]) TAKE 1 TABLET BY MOUTH [...] Taxonomy. Pernicious anemia 08/03/2008 CORONARY ATHEROSCLER. OF [place] CORONARY VESSEL 08/28/2006 S/P AORTIC VALVE REPLACEMENT-[facility] Aortocoronary bypass status 06/29/2006 terminal carman current use of anticoagulant t herapy 06/03/2003 [...] Date Type Specialty Care Team Description 03/27/2023 Office Visit Internal Medicine Keyshawn Jeter PA-C 200 [facility] [address] 06/22/2023 Office Visit Cardiology Tho Park MD [address] [place] [address] Pending Results Name Type Priority Associated Diagnoses Date /Time PT INR Lab Routine S/P aortic valve replacement Anticoagulation management encounter terminal carman current use of anticoagulant therapy 03/26/2023 1:41 PM EDT Health Maintenance Due Date Last [...] Additional history exists CKD PHOS USE SMARTSET 36033 09/22/2023 04/0 11/2022, 09/01/2021, 08/18/2020, Additional history exists CKD HGB USE SMARTSET 93120 11/10/202311/09, 11/09/2022, 09/01/2022, Additional history exists DIABETES-EYE [...] as of this encounter Visit Diagnoses Diagnosis S/P aortic valve replacement Heart valve replaced by other means Anticoagulation management encounter Encounter for therapeutic drug monitoring [facility] current use of anticoagulant therapy documented in this encounter Care Teams Spot Washer Relationship Specialty Start Date End Date Sourav Verde MD 200 [facility], [place] [address] PCP - General Internal Medicine 02/28/21 documented as of this encounter
--- OUTSIDE RECORDS SUMMARY | 2023-04-27 08:52 | External Medical Summary | Summary of Care ---
Author Name Unknown Organization [facility] Address [address] [place] [address] Phone [phone] Care Team Providers Care Wheel Grinder Name Role Phone Sourav Hernandez MD Primary Care Provider + Reason for Visit * Reason Onset Date Comments Medication Refill 03/05/2023 Encounter Details Date Type Department Care Team Description 03/05/2023 Refill General Internal Medicine [facility] [address] [facility] [place] [address] Antonio Ni, DO [address] [place] [address] Type 2 diabetes mellitus with hemoglobin A1c goal of less than 7.0% ([facility]) Allergies Active Allergy Reactions Severity Noted Date Comments Niacin Er Flushing,Itching 03/29/2010 documented as of this encounter (statuses as of 03/06/2023) Medications Medication Sig Dispensed Refills Start Date End Date Status NITROGLYCERIN 0.4 MG SL SUBLIndications:C hronic ischemic heart disease one tab under tongue as needed for chest pain maximum 3 dose 25 5 07/20/2008 Active ONE TOUCH ULTRASOFT LANCETS MISC Check glucose two times a day Dx 250.00 100 Each 5 01/26/2015 Active dorzolamide-timol ol (COSOPT OCUMETER PLUS) 2.23-0.68% ophthalmic solution 2 [...] 06/13/2019 Active Rocklatan 0.02-0.005 % Ophthalmic Solution (Netarsudil-Latan oprost) Instill 2 Drops into the left eye daily. 0 Active Brimonidine Tartrate 0.15 % Ophthalmic Solution (Alphagan P) Instill 1 Drop into the left eye in the morning and 1 Drop at noon and 1 Drop before bedtime. 0 12/23/2020 Active Polymyxin B-Trimethoprim 75976-3.1 UNIT/ML-% Ophthalmic Solution (Polytrim) Instill 2 Drops into the right eye in the morning and 2 Drops before bedtime. 0 11/30/2020 Active Aspirin 81 MG Oral Tablet Chewable (Aspirin Low Dose)Indications: Chronic ischemic heart disease,S/P aortic valve replacement,Parox ysmal atrial fibrillation (HCC) 1 TABLET BY MOUTH 3 TIMES PER WEEK. 36 Tablet 11 02/03/2022 Active Levemir 100 UNIT/ML Subcutaneous Solution (insulin Detemir)Indicatio ns:Type 2 diabetes mellitus with hemoglobin A1c goal of less than 7.0% ([facility]) INJECT 84 UNITS UNDER SKIN BEFORE BED 70 mL 5 05/28/2022 Active Warfarin Sodium 7.5 MG Oral Tablet (Coumadin)Indicat ions:Venous thrombosis,Antico agulation management encounter Take 0.5 Tablets by mouth every evening. Or as directed by [facility] 45 Tablet 3 10/02/2022 Active Furosemide 40 MG Oral Tablet (Lasix)Indication s:Edema, unspecified TAKE ONE DAILY AND ADDITIONAL ONE 2 DAYS PER WEEK 120 Tablet 3 10/25/2022 Active Terazosin HCl 2 MG Oral CapsuleIndication s:HTN, goal below 140/80,Mitral stenosis TAKE 1 CAPSULE BY MOUTH EVERY DAY 90 Capsule 1 10/25/2022 Active metFORMIN HCl 1000 MG Oral Tablet (Glucophage)Indic ations:Type 2 diabetes mellitus with hemoglobin A1c goal of 7.0%-8.0% ([facility]) TAKE 1 TABLET BY MOUTH IN THE MORNING AND BEFORE BEDTIME 180 Tablet 1 10/25/2022 Active Insulin Aspart 100 UNIT/ML Injection Solution (NovoLOG)Indicati ons:Type 2 diabetes mellitus with hemoglobin A1c goal of less than 7.0% ([facility]) INJECT 15 UNITS SUBCUTANEOUSLY WITH BREAKFAST 15 UNITS WITH LUNCH AND 20 UNITS WITH SUPPER DAILY 40 mL 1 10/25/2022 Active Sotalol HCl 120 MG Oral TabletIndications :Chronic atrial fibrillation (HCC) TAKE 1 TABLET BY MOUTH TWICE A DAY 180 Tablet 1 10/25/2022 Active Allopurinol 100 MG Oral Tablet (Zyloprim)Indicat ions:Gout TAKE 2 TABLETS BY MOUTH EVERY DAY 180 Tablet 1 10/25/2022 Active Metoprolol Succinate ER 25 MG Oral Tablet Extended Release 24 Hour (toPROL XL)Indications:Ao rtocoronary bypass status,S/P aortic valve replacement TAKE 1 TABLET BY MOUTH TWICE A DAY 180 Tablet 1 10/25/2022 Active Ezetimibe-Simvast atin 10-40 MG Oral TabletIndications :Dyslipidemia, goal LDL below 70 TAKE 1 TABLET BY MOUTH EVERY DAY 90 Tablet 1 10/25/2022 Active Insulin Syringe-Needle U-100 30G X 1/2" 1 ML (BD Insulin Syringe U/F) Use with insulin 4 times a day 400 Each 3 03/06/2023 Active OneTouch Ultra In Vitro Strip (Glucose Blood)Indications :Type 2 diabetes mellitus with hemoglobin A1c goal of less than 7.0% ([facility]) Use to test blood glucose twice a day E11.9 200 Strip 3 03/06/2023 Active BD Insulin Syringe U/F 30G X 1/2" 1 ML (Insulin Syringe-Needle U-100) USE WITH INSULIN 4 TIMES A DAY 400 Each 3 05/09/2021 03/05/20 23 Discontinu ed(Refill) OneTouch Ultra In Vitro Strip (Glucose Blood)Indications :Type 2 diabetes mellitus with hemoglobin A1c goal of less than 7.0% ([facility]) TEST GLUCOSE TWICE DAILY DX E11.9 200 Strip 11 11/01/2021 03/05/20 23 Discontinu ed(Refill) documented as of this encounter (statuses as of 03/06/2023) Active Problems Problem Noted Date Central retinal [...] Taxonomy. Pernicious anemia 08/03/2008 CORONARY ATHEROSCLER. OF [place] CORONARY VESSEL 08/28/2006 S/P AORTIC VALVE REPLACEMENT-[place] Aortocoronary bypass status 06/29/2006 shelter current use of anticoagulant t herapy 06/03/2003 Overview: ICD-10 update of inactive term Anticoagulation management encounter 08/2001 [facility]R ISCHEMIC HRT DIS NOS 01/22/2001 GENERAL OSTEOARTHROSIS 01/22/2001 SBE (subacute bacterial endocarditis) pr ophylaxis candidate documented as of this encounter (statuses as of 03/06/2023) Resolved Problems Problem Noted Date Resolved Date [...] as of this encounter (statuses as of 03/06/2023) Immunizations Name Administration Dates Next Due Influenza, [...] encounter Miscellaneous Notes * Telephone Encounter - Max Mendoza RPh - 03/06/2023 10:47 AM EDTSigned Prescriptions: Disp Refills Insulin Syringe-Needle U-100 30G X 1/2" 1 *400 Ea*3 Sig: Use with insulin 4 times a dayAuthorizing Provider: SOURAV HERNANDEZ User: MAX MENDOZA OneTouch Ultra In Vitro Strip (Glucose Blo*200 St*3 Sig: Use to test blood glucose twice a day E11.9A uthorizing Provider: SOURAV HERNANDEZ User: MAX MENDOZA documented in this encounter Plan of Treatment Upcoming Encounters Date Type Specialty Care Team Description 03/26/2023 Anticoagulation Pharmacy Pharmacist1, [facility] 03/27/2023 Office Visit Internal Medicine [place], Keyshawn Alexandre, PA-C [address] [place] [address] 06/22/2023 Office Visit Cardiology Tho Park MD [address] [place] [address] Health Maintenance Due Date Last Done Comments [...] Additional history exists CKD PHOS USE SMARTSET 20719 09/22/2023 04/0 11/2022, 09/01/2021, 08/18/2020, Additional history exists CKD HGB USE SMARTSET 59100 11/10/202311/09, 11/09/2022, 09/01/2022, Additional history exists DIABETES-EYE [...] A1c goal of less than 7.0% (HCC) documented in this encounter Care Teams Wheel Grinder Relationship Specialty Start Date End Date Sourav Hernandez MD [address] [place] [address] PCP - General Internal Medicine 02/28/21 documented as of this encounter
--- OUTSIDE RECORDS SUMMARY | 2023-04-27 08:52 | External Medical Summary ---
Author Name Unknown Address Unknown Organization K09:[facility] [place] [address] Laboratory Report Ordering Provider Test Date Status TRUMAN LIGHT V 03/26/2023 13:34:51 Final Therapeutic ranges for non-o perative patients:
Prophylaxsis/treatment of DVT: (Range:2.0-3.0)
Treatment of pulmonary embolism:(Range:2.0-3.0)
Prevention of systemic embolism from:
-tissue heart valves
-acute myocardial infarction
-valvular heart disease
-atrial fibrillation
(Range: 2.0-3.0)
Mechanical prosthetic valves: (Range: 2.5-3.5) Observation Date Value Abnormality Reference (Units ) Status INR in Capillary blood by Coagulation assay 03/26/2023 13:34:51 >8.0 (INR) Final Performing Location [facility] [place] [address]
--- OUTSIDE RECORDS SUMMARY | 2023-04-27 08:52 | External Medical Summary | Summary of Care ---
Author Name Unknown Organization [facility] Address [address] [place] [facility] [place] [address] Phone [phone] Care Team Providers Care Netbackup Admin Name Role Phone Sourav Verde MD Primary Care Provider + Reason for Visit * Reason Comments Dosage Adjustment In Person (Anticoag Cl inic) Encounter Details Date Type Department Care Team Description 12/14/2022 Anticoagulation Pharmacy, [facility] [address] [facility] [place] [address] Pharmacist1, [facility] [address] [facility] [place] [phone] S/P aortic valve replacement* Allergies Active Allergy Reactions Severity Noted Date Comments Niacin Er Flushing,Itching 03/29/2010 documented as of this encounter (statuses as of 12/14/2022) Medications Medication Sig Dispensed Refills Start Date [...] before bedtime. 0 12/23/2020 Active Polymyxin B-Trimethoprim 65174-1.1 UNIT/ML-% Ophthalmic Solution (Polytrim) Instill 2 Drops [...] goal of less than 7.0% ([facility]) TEST GLUCOSE TWICE DAILY DX E11.9 200 [...] as of this encounter (statuses as of 12/14/2022) Active Problems Problem Noted Date Central retinal [...] Taxonomy. Pernicious anemia 08/03/2008 CORONARY ATHEROSCLER. OF [place] CORONARY VESSEL 08/28/2006 S/P AORTIC VALVE REPLACEMENT-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 Medication Therapy Disease Management - Anticoagulation Kieran Muriel Rojas 1940 Patient Findings Negatives: Signs/symptoms of thrombosis, Signs/symptoms of bleeding, Change in health, Change in alcohol use, Change in activity, Upcoming invasive procedure, Missed doses, Extra doses, Change in medications, Change in diet/appetite, Bruising INR Result As of 12/14/2022 INR goal: 2.5-3.0 INR used for dosin.6 (12/14/2022) Warfarin Plan As of 12/14/2022 Full warfarin instructions: 12/14: Hold; Otherwise 3.75 mg every day Next INR check: 01/18/2023 Repeat PT/INR in 5 week(s) Weekly dose: not changed Perico Mancini RPh, CACP, CDE Clinical Pharmacist Medication Therapy Management [facility] 12/14/2022 9:45 AM documented in this encounter Plan of Treatment Upcoming Encounters Date Type Specialty Care Team Description 01/18/2023 Anticoagulation Pharmacy Pharmacist1, [facility] [address] [place] [address] 03/26/2023 Office Visit Internal Medicine Sourav Verde MD [address] [place] [address] 06/22/2023 Office Visit Cardiology Tho Park MD [address] [place] [address] Health Maintenance Due Date Last Done Comments [...] Additional history exists CKD PHOS USE SMARTSET 89259 09/22/2023 04/0 11/2022, 09/01/2021, 08/18/2020, Additional history exists DIABETES-EYE EXAM 10/19/2023 10/18/2022, , 07/11/2022, Additional history exists CKD HGB USE SMARTSET 73295 11/10/202311/09, 11/09/2022, 09/01/2022, Additional history exists Pneumococcal [...] Comments INR FINGERSTICK, POINT OF CARE GURU 12/14/2022 9:42 AM EDT documented in this encounter Results * INR FINGERSTICK, POINT OF CARE (12/14/2022 9:42 AM EDT) Fingerstick INR 3.6 INR 9:43 AM EDT [facility] 56 Blood 12/14/2022 9:42 AM EDT 12/14/2022 9:43 AM EDT Narrative [facility] 56- - 12/14/2022 9:43 AM EDT Therapeutic ranges for non-operative patients: Prophylaxsis/treatment of DVT: (Range:2.0-3.0) Treatment of pulmonary embolism:(Range:2.0-3.0) Prevention of systemic embolism from: -tissue heart valves -acute myocardial infarction -valvular heart disease -atrial fibrillation (Range: 2.0-3.0) Mechanical prosthetic valves: (Range: 2.5-3.5) [facility] Pharmacist1 LAB POINT OF C ARE TEST DOCKED DEVICE UNSOLICITED RESULTS [facility] [address] [facility] [place] [phone] documented in this encounter Visit Diagnoses Diagnosis S/P aortic valve replacement- Primary Heart valve replaced by other means documented in this encounter Care Teams Netbackup Admin Relationship Specialty Start Date End Date [facility] Verde [facility] [address] P[facility] - General Internal Medicine 02/28/21 documented as of this encounter
--- OUTSIDE RECORDS SUMMARY | 2023-04-27 08:52 | External Medical Summary ---
Author Name Unknown Address Unknown Organization K[facility] [place] [address] Laboratory Report Ordering Provider Test Date Status MARTINPHARMACIST1 12/14/2022 09:42:42 Final Therapeutic ranges for non-o perative patients:
Prophylaxsis/treatment of DVT: (Range:2.0-3.0)
Treatment of pulmonary embolism:(Range:2.0-3.0)
Prevention of systemic embolism from:
-tissue heart valves
-acute myocardial infarction
-valvular heart disease
-atrial fibrillation
(Range: 2.0-3.0)
Mechanical prosthetic valves: (Range: 2.5-3.5) Observation Date Value Abnormality Reference (Units ) Status INR in Capillary blood by Coagulation assay 12/14/2022 09:42:42 3.6 (INR) Final Performing Location [facility] [place] [address]
--- OUTSIDE RECORDS SUMMARY | 2023-04-27 08:52 | External Medical Summary ---
Author Name Unknown Address Unknown Organization K09[facility] [place] [address] Laboratory Report Ordering Provider Test Date Status TRUMAN LIGHT V 01/18/2023 10:18:08 Final Therapeutic ranges for non-o perative patients:
Prophylaxsis/treatment of DVT: (Range:2.0-3.0)
Treatment of pulmonary embolism:(Range:2.0-3.0)
Prevention of systemic embolism from:
-tissue heart valves
-acute myocardial infarction
-valvular heart disease
-atrial fibrillation
(Range: 2.0-3.0)
Mechanical prosthetic valves: (Range: 2.5-3.5) Observation Date Value Abnormality Reference (Units ) Status INR in Capillary blood by Coagulation assay 01/18/2023 10:18:08 3.2 (INR) Final Performing Location [place] [place] [address]
--- OUTSIDE RECORDS SUMMARY | 2023-04-27 08:52 | External Medical Summary | Summary of Care ---
Author Name Unknown Organization [facility] Address [address] [place] [facility] [place] [address] Phone [phone] Care Team Providers Care Machine Operator Helper Name Role Phone Sourav Verde MD Primary Care Provider + Reason for Visit * Reason Comments eRx-Medication Refill Encounter Details Date Type Department Care Team Description 03/13/2023 Refill Cardiology, [facility] [address] [place] [address] Tho Park MD [address] [place] [address] CHR ISCHEMIC HRT DIS NOS; S/P AORTIC VALVE REPLACEMENT-[place]; Paroxysmal atrial fibrillation (HCC) Allergies Active Allergy Reactions Severity Noted Date Comments Niacin Er Flushing,Itching 03/29/2010 documented as of this encounter (statuses as of 03/13/2023) Medications Medication Sig Dispensed Refills Start Date [...] before bedtime. 0 1 Active Polymyxin B-Trimethoprim 75108-2.1 UNIT/ML-% Ophthalmic Solution (Polytrim) Instill 2 Drops into the right eye in the morning and 2 Drops before bedtime. 0 1 Active Levemir 100 UNIT/ML Subcutaneous Solution (insulin Detemir)Indicati ons:Type 2 diabetes mellitus with hemoglobin A1c goal of less than 7.0% ([facility]) INJECT 84 UNITS UNDER SKIN BEFORE BED [...] mellitus with hemoglobin A1c goal of 7.0%-8.0% ([facility]) TAKE 1 TABLET BY MOUTH IN THE MORNING AND BEFORE BEDTIME 180 Tablet 1 3 Active Insulin Aspart 100 UNIT/ML Injection Solution (NovoLOG)Indicat ions:Type 2 diabetes mellitus with hemoglobin A1c goal of less than 7.0% ([facility]) INJECT 15 UNITS SUBCUTANEOUSLY WITH BREAKFAST 15 UNITS WITH LUNCH AND 20 UNITS WITH SUPPER DAILY 40 mL 1 3 Active Sotalol HCl 120 MG [...] A DAY 180 Tablet 1 3 Active Ezetimibe-Simvas tatin 10-40 MG Oral TabletIndication s:Dyslipidemia, goal LDL below 70 TAKE 1 TABLET BY MOUTH EVERY DAY 90 Tablet 1 3 Active Insulin Syringe-Needle U-100 30G X 1/2" 1 ML (BD Insulin Syringe U/F) Use with insulin 4 times a day 400 Each 3 3 Active FetchDog Ultra In Vitro Strip (Glucose Blood)Indication s:Type 2 diabetes mellitus with hemoglobin A1c goal of less than 7.0% ([facility]) Use to test blood glucose twice a day E11.9 200 Strip 3 3 Active Aspirin 81 MG Oral Tablet Chewable (Aspirin Low Dose)Indications :Chronic ischemic heart disease,S/P aortic valve replacement,Paro xysmal atrial fibrillation (HCC) TAKE 1 TABLET 3 TIMES A WEEK 40 Tablet 3 3 Active Aspirin 81 MG Oral Tablet Chewable (Aspirin Low Dose)Indications :Chronic ischemic heart disease,S/P aortic valve replacement,Paro xysmal atrial fibrillation (HCC) 1 TABLET BY MOUTH 3 TIMES PER WEEK. 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 06/03/2003 Overview: ICD-10 update of inactive term Anticoagulation management encounter 08/2001 CHR ISCHEMIC HRT DIS NOS 01/22/2001 GENERAL OSTEOARTHROSIS 01/22/2001 SBE (subacute bacterial endocarditis) pr ophylaxis candidate documented as of this encounter (statuses as of 03/13/2023) Resolved Problems Problem Noted Date Resolved Date [...] as of this encounter (statuses as of 03/13/2023) Immunizations Name Administration Dates Next Due Influenza, [...] encounter Miscellaneous Notes * Telephone Encounter - Velia Nava PA-C - 03/13/2023 2:54 PM EDT Signed Prescriptions: Disp Refills Aspirin 81 MG Oral Tablet Chewable (Aspiri*40 Tab*3 Sig: TAKE 1 TABLET 3 TIMES A WEEK Authorizing Provider: VELIA NAVA * Telephone Encounter - AMANDA Gonzalez - 03/13/2023 2:05 PM EDTPending Prescriptions: Disp Refills Aspirin 81 MG Oral Tablet Chewable (Aspiri*40 Tab*3 Sig: TAKE 1 TABLET 3 TIMES A WEEK * Telephone Encounter - AMANDA Gonzalez - 03/13/2023 2:04 PM EDT Did you pend patient's preferred pharmacy and medication before forwarding?yes [id number] [address] [facility] Pending Prescriptions: Disp Refills Aspirin 81 MG Oral Tablet Chewable (Aspir*40 Tab*3 Sig: TAKE 1 TABLET 3 TIMES A WEEK Last Visit: 01/19/2022 (in office), Visit date not found (telemedicine) Next Visit: 06/22/2023 If no future appointments scheduled, and last appointment is greater than a year ago, please schedule patient for a follow-up appointment Last date the medication was ordered: 02-03-2022 Is this request for a controlled substance?No Urine Drug Screen:No results found. However, due to the size of the patient record, not all encounters were searched. Please check Results Review for a complete set of results. Patient Phone Numbers Labs: Lab Results Component Value Date/Time CREAT 1.1 09/04/2022 01:53 PM CREAT 1.0 04/15/2020 10:07 AM CREAT 0.8 09/29/1996 01:30 PM POTASSIUM 4.2 04/10/2022 11:04 AM POTASSIUM 4.1 12/15/2019 09:20 AM TSH 0.85 09/04/2022 01:53 PM TSH 0.58 04/16/2017 09:12 AM LDLCALC 32 09/01/2021 10:29 AM LDLCALC 24 01/21/2019 10:12 AM LDLDIRECT 22 08/03/2022 07:51 AM LDLDIRECT 32 12/15/2019 09:20 AM LDLDIRECT 43 02/23/2016 08:44 AM ALT 35 03/10/2022 11:53 AM ALT 27 12/15/2019 09:20 AM HGBA1C 7.1 (H) 09/21/2022 11:14 AM HGBA1C 7.4 (H) 04/15/2020 10:07 AM HGBA1C 6.0 09/29/1996 01:30 PM documented in this encounter Plan of Treatment Upcoming Encounters Date Type Specialty Care Team Description 03/26/2023 Anticoagulation Pharmacy Pharmacist1, [facility] [place] [address] 03/27/2023 Office Visit Internal Medicine Keyshawn Jeter PA-C 200 [facility] [place] [address] 06/22/2023 Office Visit Cardiology Tho Park MD [address] [place] [address] Health Maintenance Due Date Last Done Comments [...] Additional history exists CKD PHOS USE SMARTSET 77918 09/22/2023 04/0 11/2022, 09/01/2021, 08/18/2020, Additional history exists CKD HGB USE SMARTSET 96113 11/10/202311/09, 11/09/2022, 09/01/2022, Additional history exists DIABETES-EYE [...] as of this encounter Visit Diagnoses Diagnosis 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, unspecified S/P AORTIC VALVE REPLACEMENT-[place] Heart valve replaced by other means Paroxysmal atrial fibrillation (HCC) Atrial fibrillation documented in this encounter Care Teams Machine Operator Helper Relationship Specialty Start Date End Date Sourav Verde MD [address] [place] [address] PCP - General Internal Medicine 02/28/21 documented as of this encounter
--- OUTSIDE RECORDS SUMMARY | 2023-04-27 08:52 | External Medical Summary ---
Author Name Unknown Address Unknown Organization K09[facility] [place] [address] Laboratory Report Ordering Provider Test Date Status TRUMAN LIGHT V 02/15/2023 11:04:50 Final Therapeutic ranges for non-o perative patients:
Prophylaxsis/treatment of DVT: (Range:2.0-3.0)
Treatment of pulmonary embolism:(Range:2.0-3.0)
Prevention of systemic embolism from:
-tissue heart valves
-acute myocardial infarction
-valvular heart disease
-atrial fibrillation
(Range: 2.0-3.0)
Mechanical prosthetic valves: (Range: 2.5-3.5) Observation Date Value Abnormality Reference (Units ) Status INR in Capillary blood by Coagulation assay 02/15/2023 11:04:50 3.2 (INR) Final Performing Location [facility] [place] [address]
--- OUTSIDE RECORDS SUMMARY | 2023-04-27 08:52 | External Medical Summary | Summary of Care ---
Author Name Unknown Organization [facility] Address [address] [place] [address] Phone [phone] Care Team Providers Care Crane Hooker Name Role Phone Sourav Verde MD Primary Care Provider + Reason for Visit * Reason Onset Date Comments Health Maintenance 03/13/2023 Encounter Details Date Type Department Care Team Description 03/13/2023 Telephone General Internal Medicine [facility] [place] [phone] Sourav Verde MD 200 [place] [address] Health Maintenance Allergies Active Allergy Reactions Severity Noted Date [...] before bedtime. 0 12/23/2020 Active Polymyxin B-Trimethoprim 06844-5.1 UNIT/ML-% Ophthalmic Solution (Polytrim) Instill 2 Drops [...] a day 400 Each 3 03/06/2023 Active Invincea Ultra In Vitro Strip (Glucose Blood)Indications: Type 2 diabetes mellitus with hemoglobin A1c goal of less than 7.0% (HCC) Use to test blood glucose twice a day E11.9 200 Strip 3 03/06/2023 Active documented as of this encounter (statuses [...] Taxonomy. Pernicious anemia 08/03/2008 CORONARY ATHEROSCLER. 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 06/03/2003 [...] encounter Miscellaneous Notes * Telephone Encounter - Marilee Roger LPN - 03/13/2023 8:53 AM EDT Care Gaps Comprehensive Care Outreach Last Office/Telemedicine Visit: 09/07/2022 (in office), Visit date not found (telemedicine) Next Office Visit: 03/27/2023 Hemoglobin AIC Results: Lab Results Component Value Date/Time HEMOGLOBIN A1C 6.0 09/29/1996 01:30 PM HEMOGLOBIN A1C 7.1 (H) 03/10/1996 02:40 PM HEMOGLOBIN A1C - [facility] 7.1 (H) 09/21/2022 11:14 AM HEMOGLOBIN A1C - [facility] 7.1 (H) 03/10/2022 11:53 AM HEMOGLOBIN A1C - [facility] 6.8 (H) 12/01/2021 08:58 AM HEMOGLOBIN A1C - [facility] 7.4 (H) 04/15/2020 10:07 AM HEMOGLOBIN A1C - [facility] 6.6 (H) 12/15/2019 09:20 AM HEMOGLOBIN A1C - [facility] 6.6 (H) 01/21/2019 10:12 AM Reviewed Health Maintenance below: Health Maintenance Topic Date Due DXA Scan Never done COVID-19 Vaccine (1) Never done Zoster Vaccines (2 of 3) 08/17/2011 DTaP,Tdap,and Td Vaccines (2 - Td or Tdap) 09/30/2022 Influenza Vaccine (FLU shot) (1) 02/16/2023 GFR 03/07/2023 Diabetic Foot Exam 03/10/2023 Depression Screening 03/10/2023 HbA1c 03/23/2023 Dexa Labs foot Care Gap Outreach Action Taken: Left message documented in this encounter Plan of Treatment Upcoming Encounters Date Type Specialty Care Team Description 03/26/2023 Anticoagulation Pharmacy Pharmacist1, [facility] [address] [place] [address] 03/27/2023 Office Visit Internal Medicine Keyshawn Jeter PA-C [address] [place] [address] 06/22/2023 Office Visit Cardiology Tho Park MD [address] [place] [address] Health Maintenance Due Date Last Done Comments [...] Additional history exists CKD PHOS USE SMARTSET 06952 09/22/2023 04/0 11/2022, 09/01/2021, 08/18/2020, Additional history exists CKD HGB USE SMARTSET 01377 11/10/202311/09, 11/09/2022, 09/01/2022, Additional history exists DIABETES-EYE [...] filedocumented as of this encounter Care Teams Crane Hooker Relationship Specialty Start Date End Date Sourav Verde MD [address] [place] [address] PCP - General Internal Medicine 02/28/21 documented as of this encounter
--- OUTSIDE RECORDS SUMMARY | 2023-04-27 08:53 | External Medical Summary ---
Author Name Unknown Address Unknown Organization K09:[facility] [place] [address] Laboratory Report Ordering Provider Test Date Status DAVID DELANEY 11/09/2022 10:16:08 Final Observation Date Value Abnormality Reference (Units ) Status SYNC LEUKOCYTES IN BLOOD BY AUTOMATED COUNT 11/09/2022 10:16:08 6.84 4.00-10.80 (K/uL) Final Segs 11/09/2022 10:16:08 66.3 40.0-75.0 (%) Final Lymphs % 11/09/2022 10:16:08 17.8 Below low normal 18.0-42.0 (%) Final Monos 11/09/2022 10:16:08 12.9 Above high normal 1.0-11.0 (%) Final Eosinophils 11/09/2022 10:16:08 2.6 0.0-6.0 (%) Final Basos 11/09/2022 10:16:08 0.4 0.0-2.0 (%) Final Absolute Segs 11/09/2022 10:16:08 4.53 1.80-7.70 (K/uL) Final Lymphs, absolute 11/09/2022 10:16:08 1.22 1.00-4.80 (K/ul) Final Monos, Abs 11/09/2022 10:16:08 0.88 0.00-1.10 (K/uL) Final Eos, Abs 11/09/2022 10:16:08 0.18 0.00-0.70 (K/uL) Final Basos, Abs 11/09/2022 10:16:08 0.03 0.00-0.20 (K/uL) Final Performing Location [facility] [place] [address]
--- OUTSIDE RECORDS SUMMARY | 2023-04-27 08:53 | External Medical Summary | Summary of Care ---
Author Name Unknown Organization [facility] Address [address] [place] [address] Phone [phone] Care Team Providers Care Ad Operations Associate Name Role Phone Sourav Verde MD Primary Care Provider + Reason for Visit * Reason Comments Dosage Adjustment In Person (Anticoag Cl inic) Encounter Details Date Type Department Care Team Description 11/09/2022 Anticoagulation Pharmacy, [facility] [address] [facility] [place] [address] Pharmacist1, 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 0 12/23/2020 Active Polymyxin B-Trimethoprim 88742-2.1 UNIT/ML-% Ophthalmic Solution (Polytrim) Instill 2 Drops into the right eye in the morning and 2 Drops before bedtime. 0 11/30/2020 Active BD Insulin Syringe U/F 30G X 1/2" 1 ML (Insulin Syringe-Needle U-100) USE WITH INSULIN 4 TIMES A DAY 400 Each 3 05/09/2021 Active OneJammituch Ultra In Vitro Strip (Glucose Blood)Indications: Type 2 diabetes mellitus with hemoglobin A1c goal of less than 7.0% ([facility]) TEST GLUCOSE TWICE DAILY DX E11.9 [...] goal of less than 7.0% ([facility]) INJECT 84 UNITS UNDER SKIN BEFORE [...] Taxonomy. Pernicious anemia 08/03/2008 CORONARY ATHEROSCLER. 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 [...] Progress Notes * Perico Llamas RPh - 11/09/2022 10:03 AM EDT Medication Therapy Disease Management - Anticoagulation Kieran Rojas 1940 Patient Findings Negatives: Signs/symptoms of thrombosis, Signs/symptoms of bleeding, Change in health, Change in alcohol use, Change in activity, Upcoming invasive procedure, Missed doses, Extra doses, Change in medications, Change in diet/appetite, Bruising INR Result As of 11/09/2022 INR goal: 2.5-3.0 INR used for dosin.5 (11/09/2022) Warfarin Plan As of 11/09/2022 Full warfarin instructions: 3.75 mg every day No change documented: Perico Llamas RPh Next INR check: 12/14/2022 Repeat PT/INR in 5 week(s) Weekly dose: not changed Perico Mancini RPh, CACP, CDE Clinical Pharmacist Medication Therapy [facility] 11/09/2022 10:11 AM documented in this encounter Plan of Treatment Upcoming Encounters Date Type Specialty Care Team Description 11/09/2022 Laboratory Laboratory [facility] [address] [place] [address] Decreased hemoglobin 12/14/2022 Anticoagulation Pharmacy Pharmacist, [facility] [address] [place] [address] 03/26/2023 Office Visit Internal Medicine Sourav Verde MD [address] [place] [address] 06/22/2023 Office Visit Cardiology Tho Park MD [address] [place] [address] Health Maintenance Due Date Last Done Comments [...] Additional history exists CKD HGB USE SMARTSET 76571 09/02/202309/01, 09/01/2022, 08/03/2022, Additional history exists Albumin/Creatinine Ratio 09/22/2023 023, 09/01/2021, 08/18/2020, Additional history exists CKD PHOS USE SMARTSET 75555 09/22/2023 04/0 11/2022, 09/01/2021, 08/18/2020, Additional history [...] Comments INR FINGERSTICK, POINT OF CARE STAT 11/09/2022 10:06 AM EDT S/P aortic valve replacement Anticoagulation management encounter retirement current use of anticoagulant therapy documented in this encounter Results * INR FINGERSTICK, POINT OF CARE (11/09/2022 10:06 AM EDT) Fingerstick INR 2.5 INR 10:08 AM EDT [facility] 56-02 Blood 11/09/2022 10:0 6 AM EDT 11/09/2022 10:08 AM EDT Narrative [facility] 56-02 - 11/09/2022 10:08 AM EDT Therapeutic ranges for non-operative patients: Prophylaxsis/treatment of DVT: (Range:2.0-3.0) Treatment of pulmonary embolism:(Range:2.0-3.0) Prevention of systemic embolism from: -tissue heart valves -acute myocardial infarction -valvular heart disease -atrial fibrillation (Range: 2.0-3.0) Mechanical prosthetic valves: (Range: 2.5-3.5) Perico Addis V, RPh LAB POINT OF CARE TE ST DOCKED DEVICE UNSOLICITED RESULTS [facility] 56-02 [address] [place] [address] documented in this encounter Visit Diagnoses Diagnosis S/P aortic valve replacement- Primary Heart valve replaced by other means Anticoagulation management encounter Encounter for therapeutic drug monitoring retirement current use of anticoagulant therapy Decreased hemoglobin Anemia, unspecified documented in this encounter Care Teams Ad Operations Associate Relationship Specialty Start Date End Date [facility]rav Verde MD [facility] [address] PCP - General Internal Medicine 02/28/21 documented as of this encounter
--- OUTSIDE RECORDS SUMMARY | 2023-04-27 08:53 | External Medical Summary ---
Author Name Unknown Address Unknown Organization [id number]:[facility] [place] [address] Laboratory Report Ordering Provider Test Date Status DAVID DELANEY 11/09/2022 10:16:08 Final Observation Date Value Abnormality Reference (Units ) Status WBC, Total 11/09/2022 10:16:08 6.84 4.00-10.8 0 (K/uL) Final RBC 11/09/2022 10:16:08 3.96 4.50-5.25 (M/uL) Final Hemoglobin 11/09/2022 10:16:08 11.2 Below low normal 14 .0-16.8 (g/dL) Final HCT 11/09/2022 10:16:08 37.5 Below low normal 40. 0-48.4 (%) Final MCV 11/09/2022 10:16:08 94.7 82.0-99.5 (fL) Final MCH 11/09/2022 10:16:08 28.3 27.0-34.0 (pg) Final MCHC 11/09/2022 10:16:08 29.9 32.0-36.0 (g/dL) Final RDW 11/09/2022 10:16:08 16.8 11.5-15.5 (%) Final Platelets 11/09/2022 10:16:08 149 140-400 (K /uL) Final MPV 11/09/2022 10:16:08 11.4 6.6-11.1 ( fL) Final Performing Location [facility] [place] [address]
--- OUTSIDE RECORDS SUMMARY | 2023-04-27 08:53 | External Medical Summary ---
Author Name Unknown Address Unknown Organization [id number]:[facility] [place] [address] [place] [address] Laboratory Report Ordering Provider Test Date Status DAVID DELANEY 11/09/2022 10:16:08 Final Observation Date Value Abnormality Reference (Units ) Status Iron 11/09/2022 10:16:08 48 45-176 (ug/dL) Final Iron-binding capacity 11/09/2022 10:16:08 385 250-425 (ug/dL) Final Transferrin Sat % 11/09/2022 10:16:08 12 Below low normal 15-55 (%) Final Performing Location [facility] - [address] [place] [address]
--- OUTSIDE RECORDS SUMMARY | 2023-04-27 08:53 | External Medical Summary ---
Author Name Unknown Address Unknown Organization K01:[facility] – [place] - [address] [place] [address] Laboratory Report Ordering Provider Test Date Status DAVID DELANEY 11/09/2022 10:16:08 Final Observation Date Value Abnormality Reference (Units ) Status Ferritin 11/09/2022 10:16:08 89 30-400 (ng /mL) Final Performing Location [facility] - [address] [place] [address]
--- OUTSIDE RECORDS SUMMARY | 2023-04-27 08:53 | External Medical Summary ---
Author Name Unknown Address Unknown Organization K09:[facility] [place] [address] Laboratory Report Ordering Provider Test Date Status TRUMAN LIGHT V 11/09/2022 10:06:57 Final Therapeutic ranges for non-o perative patients:
Prophylaxsis/treatment of DVT: (Range:2.0-3.0)
Treatment of pulmonary embolism:(Range:2.0-3.0)
Prevention of systemic embolism from:
-tissue heart valves
-acute myocardial infarction
-valvular heart disease
-atrial fibrillation
(Range: 2.0-3.0)
Mechanical prosthetic valves: (Range: 2.5-3.5) Observation Date Value Abnormality Reference (Units ) Status INR in Capillary blood by Coagulation assay 11/09/2022 10:06:57 2.5 (INR) Final Performing Location [facility] [place] [address]
--- OUTSIDE RECORDS SUMMARY | 2023-04-27 08:53 | External Medical Summary | Summary of Care ---
Author Name Unknown Organization [facility] Address [address] [place] [address] Phone [phone] Care Team Providers Care Chief Guard Name Role Phone Sourav Hernandez MD Primary Care Provider + Reason for Visit * Reason Comments eRx-Medication Refill Encounter Details Date Type Department Care Team Description 10/24/2022 Refill General Internal Medicine [facility] [address] [facility] [place] [id number] Sourav Hernandez MD 200 [facility] [place] [address] HTN, goal below 140/80; Mitral stenosis; Type 2 diabetes mellitus with hemoglobin A1c goal of 7.0%-8.0% (HCC); Type 2 diabetes mellitus with hemoglobin A1c goal of less than 7.0% (HCC); Chronic atrial fibrillation (HCC); Gout; Aortocoronary bypass status; S/P AORTIC VALVE REPLACEMENT-[facility]; Dyslipidemia, goal LDL below 70 Allergies Active Allergy Reactions Severity Noted Date Comments Niacin Er Flushing,Itching 03/29/2010 documented as of this encounter (statuses as of 10/25/2022) Medications Medication Sig Dispensed Refills Start Date [...] before bedtime. 0 1 Active Polymyxin B-Trimethoprim 90600-0.1 UNIT/ML-% Ophthalmic Solution (Polytrim) Instill 2 Drops into the right eye in the morning and 2 Drops before bedtime. 0 1 Active BD Insulin Syringe U/F 30G X 1/2" 1 ML (Insulin Syringe-Needle U-100) USE WITH INSULIN 4 TIMES A DAY 400 Each 3 1 Active OneTouch Ultra In Vitro Strip (Glucose Blood)Indication s:Type 2 diabetes mellitus with hemoglobin A1c goal of less than 7.0% (HCC) TEST GLUCOSE TWICE DAILY DX E11.9 200 Strip 11 2 Active Furosemide 40 MG Oral Tablet (Lasix)Indicatio ns:Edema, unspecified TAKE ONE DAILY AND ADDITIONAL ONE 2 DAYS PER WEEK 120 Tablet 3 2 Active Aspirin 81 MG Oral Tablet Chewable (Aspirin Low Dose)Indications :Chronic ischemic heart disease,S/P aortic valve replacement,Paro xysmal atrial fibrillation (HCC) 1 TABLET BY MOUTH 3 TIMES PER WEEK. 36 Tablet 11 2 Active Levemir 100 UNIT/ML Subcutaneous Solution (insulin Detemir)Indicati ons:Type 2 diabetes mellitus with hemoglobin A1c goal of less than 7.0% (HCC) INJECT 84 UNITS UNDER SKIN BEFORE BED 70 mL 5 2 Active Warfarin Sodium 7.5 MG Oral Tablet (Coumadin)Indica tions:Venous thrombosis,Antic oagulation management encounter Take 0.5 Tablets by mouth every evening. Or as directed by [facility] 45 Tablet 3 3 Active Terazosin HCl 2 [...] EVERY DAY 90 Tablet 1 3 Active Ezetimibe-Simvas tatin 10-40 MG Oral TabletIndication s:Dyslipidemia, goal LDL below 70 TAKE 1 TABLET BY MOUTH EVERY DAY 90 Tablet 3 2 10/26/19 23 Discontinued Metoprolol Succinate ER 25 MG Oral Tablet Extended Release 24 Hour (toPROL XL)Indications:A ortocoronary bypass status,S/P aortic valve replacement TAKE 1 TABLET BY MOUTH TWICE A DAY 180 Tablet 3 2 10/26/19 23 Discontinued Allopurinol 100 MG Oral Tablet (Zyloprim)Indica tions:Gout TAKE 2 TABLETS BY MOUTH ONCE A DAY 180 Tablet 3 2 10/26/19 23 Discontinued Sotalol HCl 120 MG Oral TabletIndication s:Chronic atrial fibrillation (HCC) TAKE 1 TABLET BY MOUTH TWICE A DAY 180 Tablet 3 2 10/26/19 23 Discontinued Terazosin HCl 2 MG Oral CapsuleIndicatio ns:HTN, goal below 140/80,Mitral stenosis TAKE 1 CAPSULE BY MOUTH EVERY DAY 90 Capsule 3 2 10/26/19 23 Discontinued Insulin Aspart 100 UNIT/ML Subcutaneous Solution (NovoLOG)Indicat ions:Type 2 diabetes mellitus with hemoglobin A1c goal of less than 7.0% (HCC) INJECT 15 UNITS SUBCUTANEOUSLY WITH BREAKFAST 15 UNITS WITH LUNCH AND 20 UNITS WITH SUPPER DAILY 40 mL 3 2 10/26/19 23 Discontinued metFORMIN HCl 1000 MG Oral Tablet (Glucophage)Kathy cations:Type 2 diabetes mellitus with hemoglobin A1c goal of 7.0%-8.0% (HCC) Take 1 Tablet by mouth in the morning and 1 Tablet before bedtime. 180 Tablet 0 3 10/26/19 23 Discontinued documented as of this encounter (statuses as of 10/25/2022) Active Problems Problem Noted Date Central retinal [...] Taxonomy. Pernicious anemia 08/03/2008 CORONARY ATHEROSCLER. OF [place] CORONARY VESSEL 08/28/2006 S/P AORTIC VALVE REPLACEMENT-[facility] Aortocoronary bypass status 06/29/2006 group home current use of anticoagulant t herapy 06/03/2003 Overview: ICD-10 update of inactive term Anticoagulation management encounter 08/2001 CHR ISCHEMIC HRT DIS NOS 01/22/2001 GENERAL OSTEOARTHROSIS 01/22/2001 SBE (subacute bacterial endocarditis) pr ophylaxis candidate documented as of this encounter (statuses as of 10/25/2022) Resolved Problems Problem Noted Date Resolved Date [...] as of this encounter (statuses as of 10/25/2022) Immunizations Name Administration Dates Next Due Influenza, [...] encounter Miscellaneous Notes * Telephone Encounter - Guy Morris RPh - 10/25/2022 7:17 AM EDTSigned Prescriptions: Disp Refills Terazosin HCl 2 MG Oral Capsule 90 Cap*1 Sig: TAKE 1 CAPSULE BY MOUTH EVERY DAYAuthorizing Provider: SOURAV HERNANDEZ User: GUY MORRIS metFORMIN [id number] MG Oral Tablet (Glucoph*180 Ta*1 Sig: TAKE 1 TABLET BY MOUTH IN THE MORNING AND BEFORE BEDTIMEAuthorizing Provider: SOURAV HERNANDEZ User: GUY MORRIS Insulin Aspart 100 UNIT/ML Injection Solut*40 mL 1 Sig: INJECT 15 UNITS SUBCUTANEOUSLY WITH BREAKFAST 15 UNITS WITH LUNCH AND 20 UNITS WITH SUPPER DAILYAuthorizing Provider: SOURAV HERNANDEZ User: GUY MORRIS Sotalol HCl 120 MG Oral Tablet 180 Ta*1 Sig: TAKE 1 TABLET BY MOUTH TWICE A DAYAuthorizing Provider: SOURAV HERNANDEZ User: GUY MORRIS Allopurinol 100 MG Oral Tablet (Zyloprim) 180 Ta*1 Sig: TAKE 2 TABLETS BY MOUTH EVERY DAYAuthorizing Provider: SOURAV HERNANDEZ User: GUY MORRIS Metoprolol Succinate ER 25 MG Oral Tablet *180 Ta*1 Sig: TAKE 1 TABLET BY MOUTH TWICE A DAYAuthorizing Provider: SOURAV HERNANDEZ User: GUY MORRIS Ezetimibe-Simvastatin 10-40 MG Oral Tablet 90 Tab*1 Sig: TAKE 1 TABLET BY MOUTH EVERY DAYAuthorizing Provider: SOURAV HERNANDEZ U ser: GUY MORRIS documented in this encounter Plan of Treatment Upcoming Encounters Date Type Specialty Care Team Description 11/09/2022 Anticoagulation Pharmacy Pharmacist1, [facility] [address] [facility] [place] [address] 03/26/2023 Office Visit Internal Medicine Sourav Hernandez MD [address] [facility] [place] [address] 06/22/2023 Office Visit Cardiology Tho Park MD [address] [place] [address] Health Maintenance Due Date Last Done Comments DXA Scan 1940 COVID-19 Vaccine (#1) 1940 Zoster Vaccines (2 of 3) 08/17/2011 06/22/2011 DTaP,Tdap,and Td Vaccines (2 - Td or Tdap) 09/30/2022 09/30/2012, 01/01/2002 Influenza Vaccine (FLU shot) (Season Ended) 2023 02/28/2021, 04/15/2020, 03/04/2019, Additional history exists GFR - Renal Function 03/07/2023 09/04/2022, 04/10/2022, 03/10/2022, Additional history exists DIABETES-FOOT EXAM 03/10/2023 03/10/2022, 0 11/01/2020, 12/15/2019, Additional history exists Depression Screening, Annual for Pts 12 and Over 03/10/2023 03/10/2022 HgA1C 03/23/2023 09/21/2022, 02/17, 12/01/2021, Additional history exists CKD HGB USE SMARTSET 94515 09/02/202309/01, 09/01/2022, 08/03/2022, Additional history exists Albumin/Creatinine Ratio 09/22/20232 023, 09/01/2021, 08/18/2020, Additional history exists CKD PHOS USE SMARTSET 31560 09/22/2023 04/0 11/2022, 09/01/2021, 08/18/2020, Additional history [...] as of this encounter Visit Diagnoses Diagnosis HTN, goal below 140/80 Unspecified essential hypertension Mitral stenosis Type 2 diabetes mellitus with hemoglobin A1c goal of 7.0%-8.0% (HCC) Type 2 diabetes mellitus with hemoglobin A1c goal of less than 7.0% (HCC) Chronic atrial fibrillation (HCC) Atrial fibrillation Gout Gout, unspecified Aortocoronary bypass status Postsurgical aortocoronary bypass status S/P AORTIC VALVE REPLACEMENT-[facility] Heart valve replaced by other means Dyslipidemia, goal LDL below 70 Other and unspecified hyperlipidemia documented in this encounter Care Teams Chief Guard Relationship Specialty Start Date End Date Sourav Hernandez MD [address] [place] [address], [place] [address] PCP - General Internal Medicine 02/28/21 documented as of this encounter
--- OUTSIDE RECORDS SUMMARY | 2023-04-27 08:53 | External Medical Summary | Summary of Care ---
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 0 1 Active Polymyxin B-Trimethoprim 33769-8.1 UNIT/ML-% Ophthalmic Solution (Polytrim) Instill 2 Drops into the right eye in the morning and 2 Drops before bedtime. 0 1 Active BD Insulin Syringe U/F 30G X 1/2" 1 ML (Insulin Syringe-Needle U-100) USE WITH INSULIN 4 TIMES A DAY 400 Each 3 1 Active [place] Ultra In Vitro Strip (Glucose Blood)Indication s:Type 2 diabetes mellitus with hemoglobin A1c goal of less than 7.0% ([facility]) TEST GLUCOSE TWICE DAILY DX E11.9 200 Strip 11 2 Active Aspirin 81 MG Oral Tablet [...] EVERY DAY 90 Tablet 1 3 Active Furosemide 40 MG Oral Tablet (Lasix)Indicatio ns:Edema, unspecified TAKE ONE DAILY AND ADDITIONAL ONE 2 DAYS PER WEEK 120 Tablet 3 2 10/26/19 23 Discontinued documented as of this [...] Taxonomy. Pernicious anemia 08/03/2008 CORONARY ATHEROSCLER. OF [place] CORONARY VESSEL 08/28/2006 S/P AORTIC VALVE REPLACEMENT-[facility] Aortocoronary bypass status 06/29/2006 [employer] current use of anticoagulant t herapy 06/03/2003 [...] encounter Miscellaneous Notes * Telephone Encounter - JESI Guerra - 10/25/2022 11:55 AM EDT Signed Prescriptions: Disp Refills Furosemide 40 MG Oral Tablet (Lasix) 120 Ta*3 Sig: TAKE ONE DAILY AND ADDITIONAL ONE 2 DAYS PER WEEK Authorizing Provider: INDERJIT GROSSMAN * Telephone Encounter - AMANDA Gonzalez - 10/25/2022 10:59 AM EDTPending Prescriptions: Disp Refills Furosemide 40 MG Oral Tablet [Pharmacy Med*120 Ta*3 Sig: TAKE ONE DAILY AND ADDITIONAL ONE 2 DAYS PER WEEK * Telephone Encounter - AMANDA Gonzalez - 10/25/2022 10:58 AM EDT Did you pend patient's preferred pharmacy and medication before forwarding?yes Pharmacy: [id number] [facility] Pending Prescriptions: Disp Refills Furosemide 40 MG Oral Tablet (Lasix) [Pha*120 Ta*3 Sig: TAKE ONE DAILY AND ADDITIONAL ONE 2 DAYS PER WEEK Last Visit: 01/19/2022 (in office), Visit date not found (telemedicine) Next Visit: 06/22/2023 If no future appointments scheduled, and last appointment is greater than a year ago, please schedule patient for a follow-up appointment Last date the medication was ordered: 11-21-2021 Is this request for a controlled substance?No [...] Care Team Description 11/09/2022 Anticoagulation Pharmacy Pharmacist1, [facility] [address] [place] [address] 03/26/2023 Office Visit Internal Medicine D[place], Sourav Ortega MD [address] [place] [address] 06/22/2023 Office Visit Cardiology Tho Park MD [address] [place] [address] Health Maintenance Due Date Last Done Comments [...] Additional history exists CKD HGB USE SMARTSET 92805 09/02/202309/01, 09/01/2022, 08/03/2022, Additional history exists Albumin/Creatinine Ratio 09/22/20232 023, 09/01/2021, 08/18/2020, Additional history exists CKD PHOS USE SMARTSET 55191 09/22/2023 04/0 11/2022, 09/01/2021, 08/18/2020, Additional history [...] as of this encounter Visit Diagnoses Diagnosis Edema, unspecified documented in this encounter Care Teams Geothermal Powerplant Mechanic Relationship Specialty Start Date End Date Sourav Verde MD [address] [place] [id number] PCP - General Internal Medicine 02/28/21 documented as of this encounter
[2023-04-27 08:57] LABS: Calcium 9.8 mg/dl (8.6-10.3); Creatinine Clr Calc Pharmacy 37.5 ml/min; Est GFR (Non-African American) 55.2 ml/min; Magnesium 1.9 mg/dl (1.7-2.4); Potassium 4.4 mmol/L (3.5-5.1)
--- NOTE | 2023-04-27 09:12 | Pharmacy Report ---
Pharmacy Glycemic Short Note 2 - Date of Service April 27, 2023 - Glycemic Short BSG Results (Last 24 hours): 04/26/23 04/26/23 04/26/23 11:54 16:58 20:17 Glucose POC Glucose 120 H 129 H 180 H 04/27/23 04/27/23 07:53 08:25 Glucose 164 H POC Glucose 169 H OUTPATIENT ANTIDIABETIC REGIMEN: * Levemir 20 units SQ HS * Novolog 0-20 units SS SQ TIDM * Metformin 1 gm PO BID HbA1c: 7.3% (04/22/23) ASSESSMENT: 04/27: * Received 25 units of insulin yesterday (15 units of basal and 10 units of prandial/correctional bolus) * Elevated fasting BSG this morning at 169 mg/dL, will increase basal scale to allow for additional basal this evening * BSGs have been largely stable, do not anticipate any other changes to glycemic regimen at this time * Patient is awaiting placement 04/26: * Patient received 15 units of basal last night and total of 6 units bolus. * BSGs yesterday were [phone] mg/dl. Fasting BSG today was 135 mg/dl. * Continued with basal insulin scale at HS same as before and Novolog parameters. 04/23/23: * BSGs trended up throughout the day yesterday * Will tighten Novolog parameters today in light of this * Received 16 units of insulin (10 units of basal and 6 units of pr andial/correctional bolus) * Fasting BSG of 138 mg/dL today - allow for increased basal dose today 04/21/23: * 83 y/o M admitted for low back pain. He has history of Type 2 diabetes managed on basal and bolus insulins and oral Metformin at home. * Patient took his last dose of basal insulin prior to admission yesterday. Slightly reduced dose of basal (stress of 2) ordered for HS. * Novolog parameters ordered based off of his home doses. This may need tightened if BSGs are trending up. PLAN FOR INPATIENT GLYCEMIC CONTROL: * Hold outpatient oral diabetes medications * Basal insulin * Lantus 15-18 units SQ HS (see EHR for details) * Bolus insulin * NovoLog per scale ACHS or Q6hrs while NPO * Goal Range: Low 120 mg/dL - High 150 mg/dL * Correction Factor: 25 mg/dL/unit * Nutritional / Prandial insulin per carb ratio of 1 unit per 9 grams CHO consumed
--- NOTE | 2023-04-27 11:22 | Cardiology Progress Note ---
Date of Service April 27, 2023 Assessment & Plan (1) Diastolic heart failure due to valvular disease: (2) Hypoxia: (3) Mitral valve stenosis: (4) Atrial fibrillation: (5) S/P AVR: Plan: Mechanical [facility] prosthesis (6) S/P CABG x 2: Plan Complex 83-year-old male with chronic valvular heart disease status post remote aortic valve replacement with mechanical prosthesis, progressively worsening calcific mitral valve disease with moderate to severe mitral stenosis Prior paroxysmal atrial fibrillation Presents for noncardiac complaints but found to have findings consistent with congestive heart failure with bilateral pleural effusions and increased interstitial markings likely reflecting patient's worsening mitral valve disease as well as recurrent atrial fibrillation 1. Acute on chronic diastolic heart failure secondary to valvular disease, mitral stenosis: IV diuretics ordered would continue despite significant stasis edema profound volume overload not physically examined in x-ray and imaging findings likely reflect patient's elevated right heart pressures and mitral stenosis 2. Past paroxysmal atrial fibrillation now presenting in atrial fibrillation. Unlikely return to sinus rhythm. High risk for continuation of sotalol we will discontinue. Increase metoprolol succinate to 100 mg twice per day 3. Valvular heart disease with normally functioning mechanical prosthesis ao rtic valve position, moderate to severe mitral stenosis 4. Elevated INR: Suspect being aggravated by right heart pressure elevation, right heart failure. If back pain persists repeat imaging may be warranted 04/22/2023 Improved from cardiac standpoint We will continue IV diuretics and additional day Continue with back pain may warrant additional imaging given elevated INR and consistent symptoms, acute onset duration 9 to 10 days 04/23/2023 Respiratory status and lower extremity edema has improved. Atrial fibrillation rates are controlled on current dosing metoprolol succinate. No likelihood of returning to sinus rhythm antiarrhythmic We will discontinue IV furosemide after doses today Begin oral dosing in a.m. Add spironolactone 12.5 mg daily INR pending 04/24/2023 continues to improve hemodynamically however hematuria after Harper insertion last evening Issues include 1. Longstanding valvular disease status post mechanical AVR, calcific mitral valve stenosis patient warrants ongoing anticoagulation with warfarin 2. Persistent atrial fibrillation 3. Acute decompensated diastolic heart failure observed on ER presentation with back pain. Improving. We will discontinue IV furosemide after today's dose begin furosemide 40 mg twice daily continue spironolactone, Daily weights I's and O's and CHF instruction 04/25/2023 No acute cardiac complaints. We will resume warfarin needs to be continued due to mechanical aortic valve prosthesis, mitral stenosis with atrial fibrillation Chest x-ray today Continue oral regimen 04/26/2023 Stable from a cardiac standpoint on appropriate medical therapies Still with back pain and indwelling Harper catheter Difficulty moving per patient We will continue furosemide and spironolactone at current dosing orally CHF instruction Sotalol discontinued and metoprolol succinate 100 mg twice per day substituted would continue Patient requires ongoing anticoagulation given mechanical aortic valve and atrial fibrillation, mitral stenosis. Will likely need mild reduction in warfarin dosing 04/27/2023 Heart rate and blood pressure up somewhat today increasing abdominal girth without lower extremity edema weights trending downward but uncertain to accuracy We will give additional dose of IV furosemide 60 mg now continue oral dosing as ordered Patient previously on lisinopril but discontinued in 2015 secondary to acute renal insufficiency/hyperkalemia. We will avoid PETER If blood pressures increase further consider increasing terazosin dosing Admission and Anticipated Discharge Date Admission Date: April 21, 2023 Subjective Patient seen and examined, chart, medications, telemetry reviewed. Feels increased abdominal girth today Heart rate and blood pressure up slightly Weights reflect declining weight with lower extremity edema resolved Still with back pain requiring narcotic Physical Exam Constitutional: + obese; no acute distress Eyes: PERRL, conjunctivae normal, anicteric sclerae ENMT: external ear and nose normal, oropharynx normal Neck: trachea midline, no thyromegaly Respiratory: normal respiratory effort, lungs clear to auscultation Cardiovascular: Rate/Rhythm: + irregularly irregular Heart Sounds: + murmur Vessels: no JVD Extremities: + edema (Trace with chronic stasis changes, improved) Gastrointestinal (Abdomen): normal bowel sounds, soft, nontender, no hepatosplenomegaly Musculoskeletal: no cyanosis or clubbing, extremities motor strength 5/5 Results & Data Vital Signs (Past 12 Hours) Vital Signs Temp Pulse Pulse Resp BP Pulse Ox O2 Del Method 04/27/23 09:00 93 H 04/27/23 09:00 Nasal Cannula 04/27/23 07:49 36.6 C 92 H 18 125/74 95 Nasal Cannula 04/27/23 04:07 37.0 C 96 H 18 157/84 H 94 Nasal Cannula 04/27/23 03:39 93 Nasal Cannula O2 Flow Rate 04/27/23 09:00 04/27/23 09:00 2 04/27/23 07:49 3 04/27/23 04:07 2 04/27/23 03:39 1 Laboratory Results Laboratory Results - last 24 hr 04/26/23 04/26/23 04/26/23 11:54 16:58 20:17 Sodium Potassium Chloride Carbon Dioxide Anion Gap BUN Creatinine Est Cr Clr Drug Dosing Est GFR ( Amer) Est GFR (Non-Af Amer) BUN/Creatinine Ratio Glucose POC Glucose 120 H 129 H 180 H Calcium Magnesium 04/27/23 04/27/23 07:53 08:25 Sodium 134 L Potassium 4.4 Chloride 97 L Carbon Dioxide 30 Anion Gap 7 BUN 30 H Creatinine 1.20 Est Cr Clr Drug Dosing 37.5 Est GFR ( Amer) 64.0 Est GFR (Non-Af Amer) 55.2 BUN/Creatinine Ratio 25.0 H Glucose 164 H POC Glucose 169 H Calcium 9.8 Magnesium 1.9
[2023-04-27] MEDS: POLYETHYLENE (MIRALAX) 17 GM PACK PO PRN (12:25)
[2023-04-27] MEDS ORDERED: FUROSEMIDE 40 MG/4 ML VIAL IV ONE (12:34)
[2023-04-27] MEDS ORDERED: oxyCODONE HCL IR 5 MG TAB (IMMEDIATE RELEASE) PO STA (15:58)
--- NOTE | 2023-04-27 16:01 | Hospitalist Progress Note ---
Date of Service April 27, 2023 Assessment & Plan (1) CHF (congestive heart failure): Plan Patient came in with low back pain, was found to be hypoxic at 78% on room air in ED. CTA chest was done which showed pulmonary edema and is concerning for questionable small blood clot. He is being managed for the following: Acute on chronic diastolic heart failure Patient hypoxic on room air, requiring 3 L oxygen on admission CT chest with pulmonary edema. BNP 621. Patient reports taking his home Lasix 40 mg daily. Continue Lasix 40 mg IV daily in the morning and 20 mg IV in the afternoon. Echo with EF 60-65%, LVH, RV elevation/overload, dilated atria, mod-severe mitral stenosis, mild-mod mitral regurg and mod tricuspid regurg. Cardiology consult-appreciate recs -Continue with IV diuretics -metoprolol succ 100mg BID for atrial fibrillation Heart healthy diet, less than 2 g sodium a day. Strict I's and O's, weights. Monitor replete electrolytes. Potassium added. Clinically much better and is still requiring about 3 L to maintain saturation Denies any shortness of breath and no chest pain at rest We will continue the current regimen of diuretics Noted to have questionable hematuria likely secondary to trauma with the Harper but seems to be clearing up Has been diuresing enough with IV furosemide-which will be changed to oral diuretics from tomorrow Heart failure is now compensated and he denies any symptoms at rest We will continue diuretics as per mental health director No acute cardiac symptoms and remains stable to be discharged from cardiac point of view Looks bloated but denies any symptoms We will continue the current medications Remains drowsy Likely secondary to narcotic pain medication Will decrease the dose of narcotic pain medications to 5 mg every 8 hourly as needed Continue with PT evaluation Low back pain Persistent, worsening Given persistence and significantly elevated INR, concern for bleeding, retroperitoneal? CT abd/pelvis reviewed from 04/21 MRI lumbar spine ordered as well as repeat CT abd/pelvis to r/o the above EXTR of the spine is consistent with degenerative changes Doubt any acute nerve compression Reassured we will try local diclofenac and warm compression Back pain is stable at rest and will get PT and OT evaluation Back pain is controlled with current medication Increasing back pain and will get lumbar disc spine CT scan with or without contrast to rule out any disc protrusion and/or nerve entrapment. He cannot have MRI CT scan of the lumbar spine with and without contrast did not show any evidence of acute disc problem but has osteoarthritic changes Reassured and he will have more physical therapy Glaucoma Eye medications have been updated Atrial Fibrillation Currently in atrial fibrillation On metoprolol succinate, dose increased to 100mg BID Usually on coumadin, currently on hold with supratherapeutic INR INR went up to 7.2 today, received one dose of IV Vit K 2.5mg INR 5.3 after Vit K, continue to hold coumadin, AM recheck Will restart Coumadin from today He is rate is controlled Medically stable to be discharged Supratherapeutic INR: Outpatient chart review with INR of 9.0 on 03/26/2023 Admitting INR of 6.5 INR went up to 7.2 today, received one dose of IV Vit K 2.5mg Per patient, he takes Coumadin half of 7.5 mg tablet every day except and Sunday. Hold Coumadin. INR in AM. No signs of bleeding at this time however back pain persistent and worsening (see below) Hgb stable. INR is 1.4 today-we will start Coumadin from today INR is 1.6 as of today-continue current dose of Coumadin INR remains therapeutic-3.3 INR today 03/26/2023 We will check INR tomorrow and continue with the Coumadin Abnormal CTA chest: Concern for a blood clot D-dimer elevated at 940 US venous Doppler BLE- no noted DVT though limited by edema Consider repeat CTA chest PE protocol in 2 days to confirm blood clot Patient does have history of IVC filter placed about 20 years ago per patient. INR currently supratherapeutic at 5.3, holding coumadin at this time. Doubt any pulmonary embolism given the INR was supratherapeutic on admission and required vitamin K Thyroid nodules Multiple thyroid nodules noted, thyroid ultrasound recommended, can be done as an outpatient after discharge. 8 mm left apex pulmonary nodule and 6 mm left lower lobe pulmonary nodule noted, follow-up CT scan in 3 months recommended. DMII hemoglobin a1c of 7.2 Hold home meds Basal/bolus while hospitalized Other chronic medical conditions: continue other home meds Diet: DMII, HH, Low sodium DVT prophylaxis: Patient is supratherapeutic INR. Full code Dispo: consider ordering PT/OT once INR therapeutic, in an effort to be extra cautious about potentially falling with activity. We will get PT and OT evaluation-recommended rehab placement Awaiting placement Admission and Anticipated Discharge Date Admission Date: April 21, 2023 Subjective 04/23/2023 The patient was seen and examined in telemetry unit in presence of the son He has been feeling much better-denies any respiratory symptoms at rest Still complains of back pain without radiation and are without any bladder and or bowel issue 04/24/2023 The patient was seen and examined in telemetry unit He has been stable and has been taking narcotic pain medications for the back pain and which is making him drowsy Denies any chest pain and/or palpitation and no shortness of breath at rest 04/25/2023 The patient was seen and examined in telemetry unit in presence of the son He has been little drowsy but otherwise denies any symptoms Back pain seems to be controlled with current pain medication Physical therapy recommended rehab 04/26/2023 The patient was seen and examined in telemetry unit in presence of the son He complains to have pain at the lower back He is not controlled with current medication We will get lumbar spine CT scan with and without contrast 04/27/2023 The patient was seen and examined in telemetry unit He has been stable but remains little drowsy likely secondary to use of narcotic pain medication Denies any other symptoms Mamta dry Review of Systems Review of Systems: All systems reviewed and are unremarkable except as noted below Physical Exam Physical Exam: Lying in bed comfortably Constitutional: well developed, well nourished, + ill appearing and + obese Eyes: PERRL, conjunctivae normal, anicteric sclerae ENMT: external ear and nose normal, oropharynx normal Neck: trachea midline, no thyromegaly Respiratory: no respiratory distress Auscultation: + diminished lung sounds and + crackles (Minimal crackles at the bases) Cardiovascular: Rate/Rhythm: + irregularly irregular; not tachycardic Heart Sounds: normal S1, normal S2 and + murmur Extremities: + edema (Trace edema bilaterally) Gastrointestinal (Abdomen): Inspection/Auscultation: normal bowel sounds; abdomen not distended Percussion/Palpation: abdomen soft; abdomen nontender Neurologic: normal touch/pain/proprioception and + meningeal signs; not confused Lymphatic: no cervical or axillary lymphadenopathy Results & Data Results & Data Vital Signs (Past 12 Hours) Vital Signs Temp Pulse Pulse Resp BP BP Pulse Ox 04/27/23 11:25 36.4 C L 108 H 20 160/91 H 93 04/27/23 09:00 93 H 04/27/23 09:00 04/27/23 07:49 36.6 C 92 H 18 125/74 95 04/27/23 04:07 37.0 C 96 H 18 157/84 H 94 O2 Del Method O2 Flow Rate 04/27/23 11:25 Nasal Cannula 2 04/27/23 09:00 04/27/23 09:00 Nasal Cannula 2 04/27/23 07:49 Nasal Cannula 3 04/27/23 04:07 Nasal Cannula 2 Laboratory Results [facility] 04/27/23 08:25 Sodium 134 L Potassium 4.4 Chloride 97 L Carbon Dioxide 30 BUN 30 H Creatinine 1.20 Glucose 164 H Calcium 9.8 Medications Administered Current Inpatient Medications Acetaminophen (Acetaminophen 325 Mg Tab) 650 mg PO Q4H PRN PRN Reason: Pain or Fever Stop: 05/21/23 10:30 Last Admin: 04/23/23 03:08 Dose: 650 mg Al Hydrox/Mg Hydrox/Simethicone (Aluminum/Magnesium Susp 30 Ml Udc) 15 ml PO Q4H PRN PRN Reason: Dyspepsia Stop: 05/21/23 10:30 Last Admin: 04/22/23 16:48 Dose: 15 ml Allopurinol (Allopurinol 100 Mg Tab) 200 mg PO QAM [facility] Stop: 05/22/23 08:59 Last Admin: 04/27/23 08:41 Dose: 200 mg Aspirin (Aspirin 81 Mg Chew) 81 mg PO [id number] [facility] Stop: 05/23/23 08:59 Last Admin: 04/23/23 08:52 Dose: 81 mg Bismuth Subsalicylate (Bismuth Subsalicylate Susp) 30 ml PO DAILY PRN PRN Reason: Diarrhea Stop: 05/21/23 12:39 Brimonidine Tartrate (Brimonidine Tartrate 0.2% 5ml) 1 drops OPL BID [facility] Stop: 05/21/23 20:59 Last Admin: 04/27/23 08:43 Dose: 1 drops Dextrose (Dextrose 50% 50 Ml Syringe) 25 - 50 ml IV UD PRN; Protocol PRN Reason: Hypoglycemia Protocol Stop: 05/21/23 10:30 Diclofenac Sodium (Diclofenac Sod 1% Gel 100 Gm Tube) 4 gm EXT Q6H [facility]; Protocol Stop: 05/21/23 11:44 Last Admin: 04/27/23 13:28 Dose: 4 gm Dorzolamide/Timolol (Dorzolamide/Timolol 22.3/6.8mg/Ml 10 Ml Btl) 1 drops OPL BID [facility] Stop: 05/21/23 20:59 Last Admin: 04/27/23 08:43 Dose: 1 drops Ezetimibe (Ezetimibe 10 Mg Tab) 10 mg PO HS [facility] Stop: 05/21/23 22:14 Last Admin: 04/26/23 20:31 Dose: 10 mg Furosemide (Furosemide 40 Mg Tab) 40 mg PO [id number] [facility]ONAN Stop: 05/24/23 16:59 Last Admin: 04/27/23 08:42 Dose: 40 mg Glucagon (Glucagon For Inj 1 Mg Vial) 1 mg SQ UD PRN; Protocol PRN Reason: Hypoglycemia Protocol Stop: 05/21/23 10:30 Glucose (Glucose 10 Tab/Tube) 4 - 8 tab PO UD PRN; Protocol PRN Reason: Hypoglycemia Treatment Stop: 05/21/23 10:30 Glucose (Glucose 40% Gel 15 Gm Tube) 15 - 30 gm PO UD PRN; Protocol PRN Reason: Hypoglycemia Protocol Stop: 05/21/23 10:30 Insulin Aspart (Insulin Aspart Per Unit Charge) 0 units SC ACHS [facility] Stop: 05/21/23 11:29 Last Admin: 04/27/23 13:27 Dose: 3 units Insulin Glargine (Lantus Per Unit Charge) 0 units SQ HS [facility]; Protocol Stop: 05/23/23 20:59 Last Admin: 04/26/23 20:27 Dose: 15 units Lactic Acid (Ammonium Lactate 12% Lotion 225 Gm Btl) 1 gm EXT BID [facility] Stop: 05/21/23 10:29 Last Admin: 04/27/23 08:42 Dose: 1 gm Magnesium Hydroxide (Magnesium Hydroxide Susp 30 Ml Udc) 30 ml PO Q12H PRN PRN Reason: Constipation Stop: 05/21/23 10:30 Magnesium Oxide (Magnesium Oxide 400 Mg Tab) 400 mg PO BID [facility]ON[facility] Stop: 05/22/23 20:59 Last Admin: 04/27/23 08:41 Dose: 400 mg Metoprolol Succinate (Metoprolol Succ 50mg Ext Rel Tab) 100 mg PO BID [facility] Stop: 05/21/23 13:29 Last Admin: 04/27/23 08:41 Dose: 100 mg Miscellaneous (Carbohydrates For Hypoglycemia ) 15 - 30 gm PO UD PRN PRN Reason: Hypoglycemia Protocol Stop: 05/21/23 10:30 Miscellaneous Information (Pharmacy Glycemic Mgmt Consult) 1 each N/A UD PRN PRN Reason: Consult Stop: 05/21/23 10:30 Netarsudil (Netarsudil Mesylate 37 Drops/2.5 Ml Btl) 2 drops OPL HS [facility] Stop: 05/25/23 20:59 Last Admin: 04/26/23 20:38 Dose: 2 drops Polyethylene Glycol (Polyethylene (Miralax) 17 Gm Pack) 17 gm PO DAILY PRN PRN Reason: Constipation Stop: 05/22/23 16:56 Last Admin: 04/27/23 12:25 Dose: 17 gm Polymyxin/Trimethoprim Sulfate (Trimethoprim/Polymyxin B) 1 drops OPR BID [facility]ON[facility] Stop: 05/24/23 20:59 Last Admin: 04/27/23 08:44 Dose: 1 drops Simvastatin (Simvastatin 40 Mg Tab) 40 mg PO HS [facility] Stop: 05/21/23 22:14 Last Admin: 04/26/23 20:29 Dose: 40 mg Spironolactone (Spironolactone 12.5 Mg Tab) 12.5 mg PO DAILY [facility] Stop: 05/23/23 10:14 Last Admin: 04/27/23 08:41 Dose: 12.5 mg Terazosin HCl (Terazosin Hcl 1 Mg Cap) 2 mg PO DAILY [facility] Stop: 05/22/23 08:59 Last Admin: 04/27/23 08:42 Dose: 2 mg Travoprost (Travoprost Z 0.004% Oph Soln 2.5 Ml Btl) 1 drops OPB HS [facility] Stop: 05/23/23 20:59 Last Admin: 04/24/23 20:25 Dose: 1 drops Warfarin Sodium (Warfarin Sod 1.25 Mg Tab) 3.75 mg PO [id number] [facility] Stop: 05/23/23 19:29 Last Admin: 04/25/23 17:18 Dose: 3.75 mg (1) CHF (congestive heart failure) Heart failure chronicity: acute Heart failure type: unspecified Qualified Code(s): I50.9 - Heart failure, unspecified
[2023-04-27 17:19] LABS: INR 4.4 (0.9-1.1); Prothrombin Time 44.2 Seconds (9.0-12.0)
[2023-04-27] MEDS: WARFARIN SOD 1.25 MG TAB PO SCH (17:24)
[2023-04-27] MEDS: NETARSUDIL MESYLATE 37 DROPS/2.5 ML BTL OPL SCH (20:25)
[2023-04-27] MEDS: SIMVASTATIN 40 MG TAB PO SCH (20:33)
[2023-04-27] MEDS: EZETIMIBE 10 MG TAB PO SCH (20:35)
[2023-04-27] MEDS: LANTUS PER UNIT CHARGE SQ SCH (20:38)
[2023-04-28] MEDS: DICLOFENAC SOD 1% GEL 100 GM TUBE EXT SCH ×3 (06:09→17:20)
[2023-04-28 07:49] LABS: BUN Creatinine Ratio 24.1 (10-20); Calcium 9.5 mg/dl (8.6-10.3); Creatinine Clr Calc Pharmacy 30.3 ml/min; Est GFR (African American) 44.5 ml/min; Est GFR (Non-African American) 38.4 ml/min; Potassium 4.3 mmol/L (3.5-5.1)
[2023-04-28] MEDS: METOPROLOL SUCC 50MG EXT REL TAB PO SCH ×2 (08:08→21:01)
[2023-04-28] MEDS: MAGNESIUM OXIDE 400 MG TAB PO SCH ×2 (08:08→21:02)
[2023-04-28] MEDS: TERAZOSIN HCL 1 MG CAP PO SCH (08:09)
[2023-04-28] MEDS: allopurinoL 100 MG TAB PO SCH (08:09)
[2023-04-28] MEDS: TRIMETHOPRIM/POLYMYXIN B OPR SCH ×2 (08:10→21:00)
[2023-04-28] MEDS: DORZOLAMIDE/TIMOLOL 22.3/6.8MG/ML 10 ML BTL OPL SCH ×2 (08:10→21:03)
[2023-04-28] MEDS: BRIMONIDINE TARTRATE 0.2% 5ML OPL SCH ×2 (08:10→21:02)
[2023-04-28] MEDS: SPIRONOLACTONE 12.5 MG TAB PO SCH (08:11)
[2023-04-28] MEDS: FUROSEMIDE 40 MG TAB PO SCH (08:11)
[2023-04-28] MEDS: AMMONIUM LACTATE 12% LOTION 225 GM BTL EXT SCH ×2 (08:11→21:00)
[2023-04-28 08:14] LABS: INR 3.9 (0.9-1.1); Prothrombin Time 38.9 Seconds (9.0-12.0)
[2023-04-28] MEDS: INSULIN ASPART PER UNIT CHARGE SC SCH ×4 (08:47→21:00)
--- NOTE | 2023-04-28 10:51 | Cardiology Progress Note ---
Date of Service April 28, 2023 Assessment & Plan (1) Diastolic heart failure due to valvular disease: (2) Hypoxia: (3) Mitral valve stenosis: (4) Atrial fibrillation: (5) S/P AVR: Plan: Mechanical [employer] prosthesis (6) S/P CABG x 2: Plan Complex 83-year-old male with chronic valvular heart disease status post remote aortic valve replacement with mechanical prosthesis, progressively worsening calcific mitral valve disease with moderate to severe mitral stenosis Prior paroxysmal atrial fibrillation which has been persistent this admission. Patient previously on lisinopril but discontinued in 2016 secondary to acute renal insufficiency/hyperkalemia. We will avoid PETER If blood pressures increase further consider increasing terazosin dosing INR 3.9 today, goal 2-3 given mechanical AVR. Diuretics held this am as creatinine has trended up to 1.62. Received an extra dose of 60 mg IV furosemide on 04/27/23. Repeat INR and BMP in am. Admission and Anticipated Discharge Date Admission Date: April 21, 2023 Subjective Patient seen in cardiology follow-up. Notes ongoing low back pain but things seem to be trending toward improvement. Telemetry reveals atrial fibrillation with rate in the range of 80 to 90 bpm. Harper catheter is in place. Physical Exam Constitutional: + obese; no acute distress Eyes: PERRL, conjunctivae normal, anicteric sclerae ENMT: external ear and nose normal, oropharynx normal Neck: trachea midline, no thyromegaly Respiratory: normal respiratory effort, lungs clear to auscultation Cardiovascular: Rate/Rhythm: + irregularly irregular Heart Sounds: + murmur Vessels: no JVD Extremities: + edema (Trace with chronic stasis changes, improved) Gastrointestinal (Abdomen): normal bowel sounds, soft, nontender, no hepatosplenomegaly Musculoskeletal: no cyanosis or clubbing, extremities motor strength 5/5 Results & Data Vital Signs (Past 12 Hours) Vital Signs Temp Pulse Pulse Resp BP Pulse Ox O2 Del Method 04/28/23 09:00 82 04/28/23 08:37 36.4 C L 96 H 18 125/75 95 Room Air 04/28/23 03:35 36.6 C 94 H 18 114/68 94 Nasal Cannula 04/28/23 00:03 36.7 C 93 H 18 116/69 97 Nasal Cannula 04/27/23 23:00 91 H O2 Flow Rate 04/28/23 09:00 04/28/23 08:37 04/28/23 03:35 2 04/28/23 00:03 2 04/27/23 23:00 Laboratory Results Coagulation 04/27/23 04/28/23 Range/Units 16:24 06:50 PT 44.2 H 38.9 H (9.0-12.0) Seconds Comprehensive Metabolic Panel 04/28/23 Range/Units 06:50 Sodium 133 L (136-145) mmol/L Potassium 4.3 (3.5-5.1) mmol/L Chloride 96 L (98-107) mmol/L Carbon Dioxide 31 (21-32) mmol/L BUN 39 H (6-23) mg/dl Creatinine 1.62 H D (0.6-1.4) mg/dl Glucose 138 H (70-99(Fasting)) mg/dl Calcium 9.5 (8.6-10.3) mg/dl Intake and Output 04/27/23 04/28/23 04/28/23 22:59 06:59 14:59 Intake Total 300 / 700 Output Total 200 / 686 136 / 686 Balance 100 / 14 -136 / 14 Intake: Oral 300 / 700 Output: Urine 200 / 200 Urine Amount (Catheter) 135 / 485 Harper/Indwelling 135 / 485 # Bowel Movements Other: Weight 63.1 kg (3) Mitral valve stenosis Cardiac valve disease etiology: nonrheumatic Qualified Code(s): I34.2 - Nonrheumatic mitral (valve) stenosis (4) Atrial fibrillation Atrial fibrillation type: persistent (not longstanding) Qualified Code(s): I48.19 - Other persistent atrial fibrillation
--- NOTE | 2023-04-28 14:37 | Hospitalist Progress Note ---
Date of Service April 28, 2023 Assessment & Plan (1) CHF (congestive heart failure): Plan Patient came in with low back pain, was found to be hypoxic at 78% on room air in ED. CTA chest was done which showed pulmonary edema and is concerning for questionable small blood clot. He is being managed for the following: Acute on chronic diastolic heart failure Patient hypoxic on room air, requiring 3 L oxygen on admission CT chest with pulmonary edema. BNP 621. Patient reports taking his home Lasix 40 mg daily. Continue Lasix 40 mg IV daily in the morning and 20 mg IV in the afternoon. Echo with EF 60-65%, LVH, RV elevation/overload, dilated atria, mod-severe mitral stenosis, mild-mod mitral regurg and mod tricuspid regurg. Cardiology consult-appreciate recs -Continue with IV diuretics -metoprolol succ 100mg BID for atrial fibrillation Heart healthy diet, less than 2 g sodium a day. Strict I's and O's, weights. Monitor replete electrolytes. Potassium added. Clinically much better and is still requiring about 3 L to maintain saturation Denies any shortness of breath and no chest pain at rest We will continue the current regimen of diuretics Noted to have questionable hematuria likely secondary to trauma with the Harper but seems to be clearing up Has been diuresing enough with IV furosemide-which will be changed to oral diuretics from tomorrow Heart failure is now compensated and he denies any symptoms at rest We will continue diuretics as per systems technician No acute cardiac symptoms and remains stable to be discharged from cardiac point of view Looks bloated but denies any symptoms We will continue the current medications We will hold evening diuretics today as creatinine is little bit up at 1.62 Check PRP tomorrow Remains drowsy Likely secondary to narcotic pain medication Will decrease the dose of narcotic pain medications to 5 mg every 8 hourly as needed Continue with PT evaluation Patient is less drowsy today-participating physical therapy Low back pain Persistent, worsening Given persistence and significantly elevated INR, concern for bleeding, retroperitoneal? CT abd/pelvis reviewed from 04/21 MRI lumbar spine ordered as well as repeat CT abd/pelvis to r/o the above EXTR of the spine is consistent with degenerative changes Doubt any acute nerve compression Reassured we will try local diclofenac and warm compression Back pain is stable at rest and will get PT and OT evaluation Back pain is controlled with current medication Increasing back pain and will get lumbar disc spine CT scan with or without contrast to rule out any disc protrusion and/or nerve entrapment. He cannot have MRI CT scan of the lumbar spine with and without contrast did not show any evidence of acute disc problem but has osteoarthritic changes Reassured and he will have more physical therapy Pain is reasonably controlled Glaucoma Eye medications have been updated Atrial Fibrillation Currently in atrial fibrillation On metoprolol succinate, dose increased to 100mg BID Usually on coumadin, currently on hold with supratherapeutic INR INR went up to 7.2 today, received one dose of IV Vit K 2.5mg INR 5.3 after Vit K, continue to hold coumadin, AM recheck Will restart Coumadin from today He is rate is controlled Medically stable to be discharged Supratherapeutic INR: Outpatient chart review with INR of 9.0 on 03/26/2023 Admitting INR of 6.5 INR went up to 7.2 today, received one dose of IV Vit K 2.5mg Per patient, he takes Coumadin half of 7.5 mg tablet every day except and Sunday. Hold Coumadin. INR in AM. No signs of bleeding at this time however back pain persistent and worsening (see below) Hgb stable. INR is 1.4 today-we will start Coumadin from today INR is 1.6 as of today-continue current dose of Coumadin INR remains therapeutic-3.3 INR today 03/26/2023 We will check INR tomorrow and continue with the Coumadin INR remains elevated at 3.9-we will hold Coumadin Abnormal CTA chest: Concern for a blood clot D-dimer elevated at 940 US venous Doppler BLE- no noted DVT though limited by edema Consider repeat CTA chest PE protocol in 2 days to confirm blood clot Patient does have history of IVC filter placed about 20 years ago per patient. INR currently supratherapeutic at 5.3, holding coumadin at this time. Doubt any pulmonary embolism given the INR was supratherapeutic on admission and required vitamin K Thyroid nodules Multiple thyroid nodules noted, thyroid ultrasound recommended, can be done as an outpatient after discharge. 8 mm left apex pulmonary nodule and 6 mm left lower lobe pulmonary nodule noted, follow-up CT scan in 3 months recommended. DMII hemoglobin a1c of 7.2 Hold home meds Basal/bolus while hospitalized Other chronic medical conditions: continue other home meds Diet: DMII, HH, Low sodium DVT prophylaxis: Patient is supratherapeutic INR. Full code Dispo: consider ordering PT/OT once INR therapeutic, in an effort to be extra cautious about potentially falling with activity. We will get PT and OT evaluation-recommended rehab placement Awaiting placement Admission and Anticipated Discharge Date Admission Date: April 21, 2023 Subjective 04/23/2023 The patient was seen and examined in telemetry unit in presence of the son He has been feeling much better-denies any respiratory symptoms at rest Still complains of back pain without radiation and are without any bladder and or bowel issue 04/24/2023 The patient was seen and examined in telemetry unit He has been stable and has been taking narcotic pain medications for the back pain and which is making him drowsy Denies any chest pain and/or palpitation and no shortness of breath at rest 04/25/2023 The patient was seen and examined in telemetry unit in presence of the son He has been little drowsy but otherwise denies any symptoms Back pain seems to be controlled with current pain medication Physical therapy recommended rehab 04/26/2023 The patient was seen and examined in telemetry unit in presence of the son He complains to have pain at the lower back He is not controlled with current medication We will get lumbar spine CT scan with and without contrast 04/27/2023 The patient was seen and examined in telemetry unit He has been stable but remains little drowsy likely secondary to use of narcotic pain medication Denies any other symptoms Mamta dry 04/28/2023 The patient was seen and examined in telemetry unit He has been feeling much better today denies any significant symptoms Back pain is stable He is less drowsy today Review of Systems Review of Systems: All systems reviewed and are unremarkable except as noted below Physical Exam Physical Exam: Lying in bed comfortably Constitutional: well developed, well nourished, + ill appearing and + obese Eyes: PERRL, conjunctivae normal, anicteric sclerae ENMT: external ear and nose normal, oropharynx normal Neck: trachea midline, no thyromegaly Respiratory: no respiratory distress Auscultation: + diminished lung sounds and + crackles (Minimal crackles at the bases) Cardiovascular: Rate/Rhythm: + irregularly irregular; not tachycardic Heart Sounds: normal S1, normal S2 and + murmur Extremities: + edema (Trace edema bilaterally) Gastrointestinal (Abdomen): Inspection/Auscultation: normal bowel sounds; abdomen not distended Percussion/Palpation: abdomen soft; abdomen nontender Neurologic: normal touch/pain/proprioception and + meningeal signs; not confused Lymphatic: no cervical or axillary lymphadenopathy Results & Data Results & Data Vital Signs (Past 12 Hours) Vital Signs Temp Pulse Pulse Resp BP Pulse Ox O2 Del Method 04/28/23 13:20 36.4 C L 84 18 112/71 96 Nasal Cannula 04/28/23 09:00 82 04/28/23 08:37 36.4 C L 96 H 18 125/75 95 Room Air 04/28/23 03:35 36.6 C 94 H 18 114/68 94 Nasal Cannula O2 Flow Rate 04/28/23 13:20 2 04/28/23 09:00 04/28/23 08:37 04/28/23 03:35 2 Laboratory Results [facility] 04/28/23 06:50 Sodium 133 L Potassium 4.3 Chloride 96 L Carbon Dioxide 31 BUN 39 H Creatinine 1.62 H D Glucose 138 H Calcium 9.5 Medications Administered Current Inpatient Medications Acetaminophen (Acetaminophen 325 Mg Tab) 650 mg PO Q4H PRN PRN Reason: Pain or Fever Stop: 05/21/23 10:30 Last Admin: 04/23/23 03:08 Dose: 650 mg Al Hydrox/Mg Hydrox/Simethicone (Aluminum/Magnesium Susp 30 Ml Udc) 15 ml PO Q4H PRN PRN Reason: Dyspepsia Stop: 05/21/23 10:30 Last Admin: 04/22/23 16:48 Dose: 15 ml Allopurinol (Allopurinol 100 Mg Tab) 200 mg PO QAM [facility] Stop: 05/22/23 08:59 Last Admin: 04/28/23 08:09 Dose: 200 mg Aspirin (Aspirin 81 Mg Chew) 81 mg PO [id number] [facility] Stop: 05/23/23 08:59 Last Admin: 04/23/23 08:52 Dose: 81 mg Bismuth Subsalicylate (Bismuth Subsalicylate Susp) 30 ml PO DAILY PRN PRN Reason: Diarrhea Stop: 05/21/23 12:39 Brimonidine Tartrate (Brimonidine Tartrate 0.2% 5ml) 1 drops OPL BID [facility] Stop: 05/21/23 20:59 Last Admin: 04/28/23 08:10 Dose: 1 drops Dextrose (Dextrose 50% 50 Ml Syringe) 25 - 50 ml IV UD PRN; Protocol PRN Reason: Hypoglycemia Protocol Stop: 05/21/23 10:30 Diclofenac Sodium (Diclofenac Sod 1% Gel 100 Gm Tube) 4 gm EXT Q6H RONAN; Protocol Stop: 05/21/23 11:44 Last Admin: 04/28/23 12:44 Dose: 4 gm Dorzolamide/Timolol (Dorzolamide/Timolol 22.3/6.8mg/Ml 10 Ml Btl) 1 drops OPL BID RONAN Stop: 05/21/23 20:59 Last Admin: 04/28/23 08:10 Dose: 1 drops Ezetimibe (Ezetimibe 10 Mg Tab) 10 mg PO HS [facility] Stop: 05/21/23 22:14 Last Admin: 04/27/23 20:35 Dose: 10 mg Furosemide (Furosemide 40 Mg Tab) 40 mg PO [id number] [facility] Stop: 05/24/23 16:59 Last Admin: 04/28/23 08:11 Dose: 40 mg Glucagon (Glucagon For Inj 1 Mg Vial) 1 mg SQ UD PRN; Protocol PRN Reason: Hypoglycemia Protocol Stop: 05/21/23 10:30 Glucose (Glucose 10 Tab/Tube) 4 - 8 tab PO UD PRN; Protocol PRN Reason: Hypoglycemia Treatment Stop: 05/21/23 10:30 Glucose (Glucose 40% Gel 15 Gm Tube) 15 - 30 gm PO UD PRN; Protocol PRN Reason: Hypoglycemia Protocol Stop: 05/21/23 10:30 Insulin Aspart (Insulin Aspart Per Unit Charge) 0 units SC ACHS [facility] Stop: 05/21/23 11:29 Last Admin: 04/28/23 12:43 Dose: 3 units Insulin Glargine (Lantus Per Unit Charge) 0 units SQ HS RONAN; Protocol Stop: 05/23/23 20:59 Last Admin: 04/27/23 20:38 Dose: 18 units Lactic Acid (Ammonium Lactate 12% Lotion 225 Gm Btl) 1 gm EXT BID RONAN Stop: 05/21/23 10:29 Last Admin: 04/28/23 08:11 Dose: 1 gm Magnesium Hydroxide (Magnesium Hydroxide Susp 30 Ml Udc) 30 ml PO Q12H PRN PRN Reason: Constipation Stop: 05/21/23 10:30 Magnesium Oxide (Magnesium Oxide 400 Mg Tab) 400 mg PO BID RONAN Stop: 05/22/23 20:59 Last Admin: 04/28/23 08:08 Dose: 400 mg Metoprolol Succinate (Metoprolol Succ 50mg Ext Rel Tab) 100 mg PO BID RONAN Stop: 05/21/23 13:29 Last Admin: 04/28/23 08:08 Dose: 100 mg Miscellaneous (Carbohydrates For Hypoglycemia ) 15 - 30 gm PO UD PRN PRN Reason: Hypoglycemia Protocol Stop: 05/21/23 10:30 Miscellaneous Information (Pharmacy Glycemic Mgmt Consult) 1 each N/A UD PRN PRN Reason: Consult Stop: 05/21/23 10:30 Netarsudil (Netarsudil Mesylate 37 Drops/2.5 Ml Btl) 2 drops OPL HS [facility] Stop: 05/25/23 20:59 Last Admin: 04/27/23 20:25 Dose: 2 drops Polyethylene Glycol (Polyethylene (Miralax) 17 Gm Pack) 17 gm PO DAILY PRN PRN Reason: Constipation Stop: 05/22/23 16:56 Last Admin: 04/27/23 12:25 Dose: 17 gm Polymyxin/Trimethoprim Sulfate (Trimethoprim/Polymyxin B) 1 drops OPR BID RONAN Stop: 05/24/23 20:59 Last Admin: 04/28/23 08:10 Dose: 1 drops Simvastatin (Simvastatin 40 Mg Tab) 40 mg PO HS [facility] Stop: 05/21/23 22:14 Last Admin: 04/27/23 20:33 Dose: 40 mg Spironolactone (Spironolactone 12.5 Mg Tab) 12.5 mg PO DAILY RONAN Stop: 05/23/23 10:14 Last Admin: 04/28/23 08:11 Dose: 12.5 mg Terazosin HCl (Terazosin Hcl 1 Mg Cap) 2 mg PO DAILY RONAN Stop: 05/22/23 08:59 Last Admin: 04/28/23 08:09 Dose: 2 mg Travoprost (Travoprost Z 0.004% Oph Soln 2.5 Ml Btl) 1 drops OPB HS [facility]ON[facility] Stop: 05/23/23 20:59 Last Admin: 04/24/23 20:25 Dose: 1 drops Warfarin Sodium (Warfarin Sod 1.25 Mg Tab) 3.75 mg PO [id number] [facility] Stop: 05/23/23 19:29 Last Admin: 04/27/23 17:24 Dose: Not Given (1) CHF (congestive heart failure) Heart failure chronicity: acute Heart failure type: unspecified Qualified Code(s): I50.9 - Heart failure, unspecified
[2023-04-28] MEDS: SIMVASTATIN 40 MG TAB PO SCH (21:02)
[2023-04-28] MEDS: EZETIMIBE 10 MG TAB PO SCH (21:03)
[2023-04-28] MEDS: NETARSUDIL MESYLATE 37 DROPS/2.5 ML BTL OPL SCH (21:04)
[2023-04-28] MEDS: LANTUS PER UNIT CHARGE SQ SCH (21:07)
[2023-04-29] MEDS: DICLOFENAC SOD 1% GEL 100 GM TUBE EXT SCH ×4 (00:06→17:21)
[2023-04-29 05:42] LABS: BUN Creatinine Ratio 22.8 (10-20); Calcium 9.6 mg/dl (8.6-10.3); Est GFR (African American) 36.9 ml/min; Est GFR (Non-African American) 31.9 ml/min; Potassium 4.5 mmol/L (3.5-5.1)
[2023-04-29 05:52] LABS: INR 3.6 (0.9-1.1); Prothrombin Time 36.1 Seconds (9.0-12.0)
[2023-04-29] MEDS: INSULIN ASPART PER UNIT CHARGE SC SCH ×4 (08:29→20:35)
[2023-04-29] MEDS: allopurinoL 100 MG TAB PO SCH (08:30)
[2023-04-29] MEDS: METOPROLOL SUCC 50MG EXT REL TAB PO SCH ×2 (08:30→20:41)
[2023-04-29] MEDS: AMMONIUM LACTATE 12% LOTION 225 GM BTL EXT SCH ×2 (08:30→20:44)
[2023-04-29] MEDS: MAGNESIUM OXIDE 400 MG TAB PO SCH ×2 (08:30→20:41)
[2023-04-29] MEDS: TRIMETHOPRIM/POLYMYXIN B OPR SCH ×2 (08:31→20:40)
[2023-04-29] MEDS: TERAZOSIN HCL 1 MG CAP PO SCH (08:31)
[2023-04-29] MEDS: SPIRONOLACTONE 12.5 MG TAB PO SCH (08:31)
[2023-04-29] MEDS: BRIMONIDINE TARTRATE 0.2% 5ML OPL SCH ×2 (08:31→20:43)
[2023-04-29] MEDS: DORZOLAMIDE/TIMOLOL 22.3/6.8MG/ML 10 ML BTL OPL SCH ×2 (08:32→20:46)
--- NOTE | 2023-04-29 15:45 | Hospitalist Progress Note ---
Date of Service April 29, 2023 Assessment & Plan (1) CHF (congestive heart failure): Plan Patient came in with low back pain, was found to be hypoxic at 78% on room air in ED. CTA chest was done which showed pulmonary edema and is concerning for questionable small blood clot. He is being managed for the following: Acute on chronic diastolic heart failure Patient hypoxic on room air, requiring 3 L oxygen on admission CT chest with pulmonary edema. BNP 621. Patient reports taking his home Lasix 40 mg daily. Continue Lasix 40 mg IV daily in the morning and 20 mg IV in the afternoon. Echo with EF 60-65%, LVH, RV elevation/overload, dilated atria, mod-severe mitral stenosis, mild-mod mitral regurg and mod tricuspid regurg. Cardiology consult-appreciate recs -Continue with IV diuretics -metoprolol succ 100mg BID for atrial fibrillation Heart healthy diet, less than 2 g sodium a day. Strict I's and O's, weights. Monitor replete electrolytes. Potassium added. Clinically much better and is still requiring about 3 L to maintain saturation Denies any shortness of breath and no chest pain at rest We will continue the current regimen of diuretics Noted to have questionable hematuria likely secondary to trauma with the Harper but seems to be clearing up Has been diuresing enough with IV furosemide-which will be changed to oral diuretics from tomorrow Heart failure is now compensated and he denies any symptoms at rest We will continue diuretics as per mat man No acute cardiac symptoms and remains stable to be discharged from cardiac point of view Looks bloated but denies any symptoms We will continue the current medications We will hold evening diuretics today as creatinine is little bit up at 1.62 Creatinine has been increasing-we will keep holding Lasix for now He has not been drinking enough fluid and was strongly advised to drink 1.5 L a day Remains drowsy Likely secondary to narcotic pain medication Will decrease the dose of narcotic pain medications to 5 mg every 8 hourly as needed Continue with PT evaluation Patient is less drowsy today-participating physical therapy Drowsiness is improved Low back pain Persistent, worsening Given persistence and significantly elevated INR, concern for bleeding, retroperitoneal? CT abd/pelvis reviewed from 04/21 MRI lumbar spine ordered as well as repeat CT abd/pelvis to r/o the above EXTR of the spine is consistent with degenerative changes Doubt any acute nerve compression Reassured we will try local diclofenac and warm compression Back pain is stable at rest and will get PT and OT evaluation Back pain is controlled with current medication Increasing back pain and will get lumbar disc spine CT scan with or without contrast to rule out any disc protrusion and/or nerve entrapment. He cannot have MRI CT scan of the lumbar spine with and without contrast did not show any evidence of acute disc problem but has osteoarthritic changes Reassured and he will have more physical therapy Pain is reasonably controlled We will continue the current pain medications Glaucoma Eye medications have been updated Atrial Fibrillation Currently in atrial fibrillation On metoprolol succinate, dose increased to 100mg BID Usually on coumadin, currently on hold with supratherapeutic INR INR went up to 7.2 today, received one dose of IV Vit K 2.5mg INR 5.3 after Vit K, continue to hold coumadin, AM recheck Will restart Coumadin from today He is rate is controlled Medically stable to be discharged Supratherapeutic INR: Outpatient chart review with INR of 9.0 on 03/26/2023 Admitting INR of 6.5 INR went up to 7.2 today, received one dose of IV Vit K 2.5mg Per patient, he takes Coumadin half of 7.5 mg tablet every day except and Sunday. Hold Coumadin. INR in AM. No signs of bleeding at this time however back pain persistent and worsening (see below) Hgb stable. INR is 1.4 today-we will start Coumadin from today INR is 1.6 as of today-continue current dose of Coumadin INR remains therapeutic-3.3 INR today 03/26/2023 We will check INR tomorrow and continue with the Coumadin INR remains high at 3.6-unit is on hold and will decrease the doses Abnormal CTA chest: Concern for a blood clot D-dimer elevated at 940 US venous Doppler BLE- no noted DVT though limited by edema Consider repeat CTA chest PE protocol in 2 days to confirm blood clot Patient does have history of IVC filter placed about 20 years ago per patient. INR currently supratherapeutic at 5.3, holding coumadin at this time. Doubt any pulmonary embolism given the INR was supratherapeutic on admission and required vitamin K Thyroid nodules Multiple thyroid nodules noted, thyroid ultrasound recommended, can be done as an outpatient after discharge. 8 mm left apex pulmonary nodule and 6 mm left lower lobe pulmonary nodule noted, follow-up CT scan in 3 months recommended. DMII hemoglobin a1c of 7.2 Hold home meds Basal/bolus while hospitalized Other chronic medical conditions: continue other home meds Diet: DMII, HH, Low sodium DVT prophylaxis: Patient is supratherapeutic INR. Full code Dispo: consider ordering PT/OT once INR therapeutic, in an effort to be extra cautious about potentially falling with activity. We will get PT and OT evaluation-recommended rehab placement Awaiting placement Admission and Anticipated Discharge Date Admission Date: April 21, 2023 Subjective 04/23/2023 The patient was seen and examined in telemetry unit in presence of the son He has been feeling much better-denies any respiratory symptoms at rest Still complains of back pain without radiation and are without any bladder and or bowel issue 04/24/2023 The patient was seen and examined in telemetry unit He has been stable and has been taking narcotic pain medications for the back pain and which is making him drowsy Denies any chest pain and/or palpitation and no shortness of breath at rest 04/25/2023 The patient was seen and examined in telemetry unit in presence of the son He has been little drowsy but otherwise denies any symptoms Back pain seems to be controlled with current pain medication Physical therapy recommended rehab 04/26/2023 The patient was seen and examined in telemetry unit in presence of the son He complains to have pain at the lower back He is not controlled with current medication We will get lumbar spine CT scan with and without contrast 04/27/2023 The patient was seen and examined in telemetry unit He has been stable but remains little drowsy likely secondary to use of narcotic pain medication Denies any other symptoms Mamta dry 04/28/2023 The patient was seen and examined in telemetry unit He has been feeling much better today denies any significant symptoms Back pain is stable He is less drowsy today 04/29/2023 The patient was seen and examined in telemetry unit in presence of the son He has been feeling much better today His INR remains high at 3.6-we will hold Coumadin for today Reaction has been up-hold Lasix Review of Systems Review of Systems: All systems reviewed and are unremarkable except as noted below Physical Exam Physical Exam: Lying in bed comfortably Constitutional: well developed, well nourished, + ill appearing and + obese Eyes: PERRL, conjunctivae normal, anicteric sclerae ENMT: external ear and nose normal, oropharynx normal Neck: trachea midline, no thyromegaly Respiratory: no respiratory distress Auscultation: + diminished lung sounds and + crackles (Minimal crackles at the bases) Cardiovascular: Rate/Rhythm: + irregularly irregular; not tachycardic Heart Sounds: normal S1, normal S2 and + murmur Extremities: + edema (Trace edema bilaterally) Gastrointestinal (Abdomen): Inspection/Auscultation: normal bowel sounds; abdomen not distended Percussion/Palpation: abdomen soft; abdomen nontender Neurologic: normal touch/pain/proprioception and + meningeal signs; not confused Lymphatic: no cervical or axillary lymphadenopathy Results & Data Results & Data Vital Signs (Past 12 Hours) Vital Signs Temp Pulse Pulse Resp BP BP Pulse Ox 04/29/23 15:06 79 16 128/72 96 04/29/23 11:10 36.5 C 76 16 138/73 96 04/29/23 09:57 84 04/29/23 09:15 04/29/23 08:27 36.6 C 82 18 120/72 96 04/29/23 03:57 36.5 C 81 18 144/78 H 97 O2 Del Method O2 Flow Rate 04/29/23 15:06 Nasal Cannula 2 04/29/23 11:10 Room Air 04/29/23 09:57 04/29/23 09:15 Nasal Cannula 3 04/29/23 08:27 Nasal Cannula 2 04/29/23 03:57 Nasal Cannula 2 Laboratory Results [facility] 04/29/23 04:45 Sodium 131 L Potassium 4.5 Chloride 94 L Carbon Dioxide 32 BUN 43 H Creatinine 1.89 H Glucose 153 H Calcium 9.6 Medications Administered Current Inpatient Medications Acetaminophen (Acetaminophen 325 Mg Tab) 650 mg PO Q4H PRN PRN Reason: Pain or Fever Stop: 05/21/23 10:30 Last Admin: 04/23/23 03:08 Dose: 650 mg Al Hydrox/Mg Hydrox/Simethicone (Aluminum/Magnesium Susp 30 Ml Udc) 15 ml PO Q4H PRN PRN Reason: Dyspepsia Stop: 05/21/23 10:30 Last Admin: 04/22/23 16:48 Dose: 15 ml Allopurinol (Allopurinol 100 Mg Tab) 200 mg PO QAM RONAN Stop: 05/22/23 08:59 Last Admin: 04/29/23 08:30 Dose: 200 mg Aspirin (Aspirin 81 Mg Chew) 81 mg PO [id number] [facility] Stop: 05/23/23 08:59 Last Admin: 04/23/23 08:52 Dose: 81 mg Bismuth Subsalicylate (Bismuth Subsalicylate Susp) 30 ml PO DAILY PRN PRN Reason: Diarrhea Stop: 05/21/23 12:39 Brimonidine Tartrate (Brimonidine Tartrate 0.2% 5ml) 1 drops OPL BID [facility] Stop: 05/21/23 20:59 Last Admin: 04/29/23 08:31 Dose: 1 drops Dextrose (Dextrose 50% 50 Ml Syringe) 25 - 50 ml IV UD PRN; Protocol PRN Reason: Hypoglycemia Protocol Stop: 05/21/23 10:30 Diclofenac Sodium (Diclofenac Sod 1% Gel 100 Gm Tube) 4 gm EXT Q6H [facility]; Protocol Stop: 05/21/23 11:44 Last Admin: 04/29/23 12:50 Dose: 4 gm Dorzolamide/Timolol (Dorzolamide/Timolol 22.3/6.8mg/Ml 10 Ml Btl) 1 drops OPL BID [facility] Stop: 05/21/23 20:59 Last Admin: 04/29/23 08:32 Dose: 1 drops Ezetimibe (Ezetimibe 10 Mg Tab) 10 mg PO HS [facility] Stop: 05/21/23 22:14 Last Admin: 04/28/23 21:03 Dose: 10 mg Furosemide (Furosemide 40 Mg Tab) 40 mg PO [id number] [facility] Stop: 05/24/23 16:59 Last Admin: 04/28/23 08:11 Dose: 40 mg Glucagon (Glucagon For Inj 1 Mg Vial) 1 mg SQ UD PRN; Protocol PRN Reason: Hypoglycemia Protocol Stop: 05/21/23 10:30 Glucose (Glucose 10 Tab/Tube) 4 - 8 tab PO UD PRN; Protocol PRN Reason: Hypoglycemia Treatment Stop: 05/21/23 10:30 Glucose (Glucose 40% Gel 15 Gm Tube) 15 - 30 gm PO UD PRN; Protocol PRN Reason: Hypoglycemia Protocol Stop: 05/21/23 10:30 Insulin Aspart (Insulin Aspart Per Unit Charge) 0 units SC ACHS RONAN Stop: 05/21/23 11:29 Last Admin: 04/29/23 12:50 Dose: 9 units Insulin Glargine (Lantus Per Unit Charge) 0 units SQ HS [facility]; Protocol Stop: 05/23/23 20:59 Last Admin: 04/28/23 21:07 Dose: 15 units Lactic Acid (Ammonium Lactate 12% Lotion 225 Gm Btl) 1 gm EXT BID RONAN Stop: 05/21/23 10:29 Last Admin: 04/29/23 08:30 Dose: 1 gm Magnesium Hydroxide (Magnesium Hydroxide Susp 30 Ml Udc) 30 ml PO Q12H PRN PRN Reason: Constipation Stop: 05/21/23 10:30 Magnesium Oxide (Magnesium Oxide 400 Mg Tab) 400 mg PO BID RONAN Stop: 05/22/23 20:59 Last Admin: 04/29/23 08:30 Dose: 400 mg Metoprolol Succinate (Metoprolol Succ 50mg Ext Rel Tab) 100 mg PO BID [facility] Stop: 05/21/23 13:29 Last Admin: 04/29/23 08:30 Dose: 100 mg Miscellaneous (Carbohydrates For Hypoglycemia ) 15 - 30 gm PO UD PRN PRN Reason: Hypoglycemia Protocol Stop: 05/21/23 10:30 Miscellaneous Information (Pharmacy Glycemic Mgmt Consult) 1 each N/A UD PRN PRN Reason: Consult Stop: 05/21/23 10:30 Netarsudil (Netarsudil Mesylate 37 Drops/2.5 Ml Btl) 2 drops OPL HS [facility] Stop: 05/25/23 20:59 Last Admin: 04/28/23 21:04 Dose: 2 drops Polyethylene Glycol (Polyethylene (Miralax) 17 Gm Pack) 17 gm PO DAILY PRN PRN Reason: Constipation Stop: 05/22/23 16:56 Last Admin: 04/27/23 12:25 Dose: 17 gm Polymyxin/Trimethoprim Sulfate (Trimethoprim/Polymyxin B) 1 drops OPR BID [facility] Stop: 05/24/23 20:59 Last Admin: 04/29/23 08:31 Dose: 1 drops Simvastatin (Simvastatin 40 Mg Tab) 40 mg PO HS [facility] Stop: 05/21/23 22:14 Last Admin: 04/28/23 21:02 Dose: 40 mg Spironolactone (Spironolactone 12.5 Mg Tab) 12.5 mg PO DAILY [facility] Stop: 05/23/23 10:14 Last Admin: 04/29/23 08:31 Dose: 12.5 mg Terazosin HCl (Terazosin Hcl 1 Mg Cap) 2 mg PO DAILY [facility] Stop: 05/22/23 08:59 Last Admin: 04/29/23 08:31 Dose: 2 mg Travoprost (Travoprost Z 0.004% Oph Soln 2.5 Ml Btl) 1 drops OPB HS [facility] Stop: 05/23/23 20:59 Last Admin: 04/24/23 20:25 Dose: 1 drops Warfarin Sodium (Warfarin Sod 2.5 Mg Tab) 2.5 mg PO DAILY@1600 [facility] Stop: 05/29/23 15:59 (1) CHF (congestive heart failure) Heart failure chronicity: acute Heart failure type: unspecified Qualified Code(s): I50.9 - Heart failure, unspecified
[2023-04-29] MEDS ORDERED: WARFARIN SOD 2.5 MG TAB PO SCH (16:00)
[2023-04-29] MEDS: SIMVASTATIN 40 MG TAB PO SCH (20:41)
[2023-04-29] MEDS: EZETIMIBE 10 MG TAB PO SCH (20:41)
[2023-04-29] MEDS: LANTUS PER UNIT CHARGE SQ SCH (20:55)
[2023-04-29] MEDS: NETARSUDIL MESYLATE 37 DROPS/2.5 ML BTL OPL SCH (20:55)
[2023-04-30] MEDS: DICLOFENAC SOD 1% GEL 100 GM TUBE EXT SCH ×4 (00:34→17:36)
[2023-04-30 08:13] LABS: INR 2.8 (0.9-1.1); Prothrombin Time 29.1 Seconds (9.0-12.0)
[2023-04-30] MEDS: METOPROLOL SUCC 50MG EXT REL TAB PO SCH ×2 (08:29→20:24)
[2023-04-30] MEDS: INSULIN ASPART PER UNIT CHARGE SC SCH ×4 (08:29→20:30)
[2023-04-30] MEDS: allopurinoL 100 MG TAB PO SCH (08:29)
[2023-04-30] MEDS: TERAZOSIN HCL 1 MG CAP PO SCH (08:30)
[2023-04-30] MEDS: SPIRONOLACTONE 12.5 MG TAB PO SCH (08:30)
[2023-04-30] MEDS: MAGNESIUM OXIDE 400 MG TAB PO SCH ×2 (08:30→20:24)
[2023-04-30] MEDS: BRIMONIDINE TARTRATE 0.2% 5ML OPL SCH ×2 (08:31→20:26)
[2023-04-30] MEDS: TRIMETHOPRIM/POLYMYXIN B OPR SCH ×2 (08:31→20:32)
[2023-04-30 08:32] LABS: BUN Creatinine Ratio 26.5 (10-20); Creatinine Clr Calc Pharmacy 32.4 ml/min; Est GFR (African American) 50.1 ml/min; Est GFR (Non-African American) 43.2 ml/min; Potassium 4.8 mmol/L (3.5-5.1)
[2023-04-30] MEDS: DORZOLAMIDE/TIMOLOL 22.3/6.8MG/ML 10 ML BTL OPL SCH ×2 (08:32→20:23)
[2023-04-30] MEDS: AMMONIUM LACTATE 12% LOTION 225 GM BTL EXT SCH ×2 (08:32→20:24)
--- NOTE | 2023-04-30 12:36 | Pharmacy Report ---
Pharmacy Glycemic Short Note 2 - Date of Service April 30, 2023 - Glycemic Short BSG Results (Last 24 hours): 04/29/23 04/29/23 04/30/23 17:03 20:28 07:26 Glucose 149 H POC Glucose 130 H 139 H 04/30/23 04/30/23 08:06 12:20 Glucose POC Glucose 168 H 179 H OUTPATIENT ANTIDIABETIC REGIMEN: * Levemir 20 units SQ HS * Novolog 0-20 units SS SQ TIDM * Metformin 1 gm PO BID HbA1c: 7.3% (04/22/23) ASSESSMENT: 04/30 * BSGs yesterday were [phone] mg/dL. Patient received 34 units of insulin (15 units of basal and 14 units of bolus). * Fasting today is 168 mg/dL. Increase basal by 10%. * Continue Novolog as BSGs stable. 04/27: * Received 25 units of insulin yesterday (15 units of basal and 10 units of prandial/correctional bolus) * Elevated fasting BSG this morning at 169 mg/dL, will increase basal scale to allow for additional basal this evening * BSGs have been largely stable, do not anticipate any other changes to glycemic regimen at this time * Patient is awaiting placement 04/26: * Patient received 15 units of basal last night and total of 6 units bolus. * BSGs yesterday were [phone] mg/dl. Fasting BSG today was 135 mg/dl. * Continued with basal insulin scale at HS same as before and Novolog parameters. 04/23/23: * BSGs trended up throughout the day yesterday * Will tighten Novolog parameters today in light of this * Received 16 units of insulin (10 units of basal and 6 units of prandial/correctional bolus) * Fasting BSG of 138 mg/dL today - allow for increased basal dose today 04/21/23: * 83 y/o M admitted for low back pain. He has history of Type 2 diabetes managed on basal and bolus insulins and oral Metformin at home. * Patient took his last dose of basal insulin prior to admission yesterday. Slightly reduced dose of basal (stress of 2) ordered for HS. * Novolog parameters ordered based off of his home doses. This may need tightened if BSGs are trending up. PLAN FOR INPATIENT GLYCEMIC CONTROL: * Hold outpatient oral diabetes medications * Basal insulin * Lantus 17 units SQ HS * Bolus insulin * NovoLog per scale ACHS or Q6hrs while NPO * Goal Range: Low 120 mg/dL - High 150 mg/dL * Correction Factor: 25 mg/dL/unit * Nutritional / Prandial insulin per carb ratio of 1 unit per 9 grams CHO consumed
--- NOTE | 2023-04-30 17:32 | Hospitalist Progress Note ---
Date of Service April 30, 2023 Assessment & Plan (1) CHF (congestive heart failure): Plan Patient came in with low back pain, was found to be hypoxic at 78% on room air in ED. CTA chest was done which showed pulmonary edema and is concerning for questionable small blood clot. He is being managed for the following: Acute on chronic diastolic heart failure Patient hypoxic on room air, requiring 3 L oxygen on admission CT chest with pulmonary edema. BNP 621. Patient reports taking his home Lasix 40 mg daily. Continue Lasix 40 mg IV daily in the morning and 20 mg IV in the afternoon. Echo with EF 60-65%, LVH, RV elevation/overload, dilated atria, mod-severe mitral stenosis, mild-mod mitral regurg and mod tricuspid regurg. Cardiology consult-appreciate recs -Continue with IV diuretics -metoprolol succ 100mg BID for atrial fibrillation Heart healthy diet, less than 2 g sodium a day. Strict I's and O's, weights. Monitor replete electrolytes. Potassium added. 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 No acute cardiac symptoms and remains stable to be discharged from cardiac point of view Looks bloated but denies any symptoms We will continue the current medications We will hold evening diuretics today as creatinine is little bit up at 1.62 Creatinine has been increasing-we will keep holding Lasix for now He has not been drinking enough fluid and was strongly advised to drink 1.5 L a day No signs and or symptoms of fluid overload-Lasix remains on hold We will continue Lasix once a day on discharge Remains drowsy Likely secondary to narcotic pain medication Will decrease the dose of narcotic pain medications to 5 mg every 8 hourly as needed Continue with PT evaluation Patient is less drowsy today-participating physical therapy Drowsiness is improved Hematuria Seems to be clearing up Likely secondary to trauma due to fall-complicated by Coumadin We will maintain INR between 2-3 Reduce the dose of Coumadin to 2 mg a day Low back pain Persistent, worsening Given persistence and significantly elevated INR, concern for bleeding, retroperitoneal? CT abd/pelvis reviewed from 04/21 MRI lumbar spine ordered as well as repeat CT abd/pelvis to r/o the above EXTR of the spine is consistent with degenerative changes Doubt any acute nerve compression Reassured we will try local diclofenac and warm compression Back pain is stable at rest and will get PT and OT evaluation Back pain is controlled with current medication Increasing back pain and will get lumbar disc spine CT scan with or without contrast to rule out any disc protrusion and/or nerve entrapment. He cannot have MRI CT scan of the lumbar spine with and without contrast did not show any evidence of acute disc problem but has osteoarthritic changes Reassured and he will have more physical therapy Pain is reasonably controlled We will continue the current pain medications Will reduce the use of narcotic pain medications Glaucoma Eye medications have been updated Atrial Fibrillation Currently in atrial fibrillation On metoprolol succinate, dose increased to 100mg BID Usually on coumadin, currently on hold with supratherapeutic INR INR went up to 7.2 today, received one dose of IV Vit K 2.5mg INR 5.3 after Vit K, continue to hold coumadin, AM recheck Will restart Coumadin from today He is rate is controlled Medically stable to be discharged Supratherapeutic INR: Outpatient chart review with INR of 9.0 on 03/26/2023 Admitting INR of 6.5 INR went up to 7.2 today, received one dose of IV Vit K 2.5mg Per patient, he takes Coumadin half of 7.5 mg tablet every day except and Sunday. Hold Coumadin. INR in AM. No signs of bleeding at this time however back pain persistent and worsening ( see below) Hgb stable. INR is 1.4 today-we will start Coumadin from today INR is 1.6 as of today-continue current dose of Coumadin INR remains therapeutic-3.3 INR today 03/26/2023 We will check INR tomorrow and continue with the Coumadin INR remains high at 3.6-Coumadin is on hold and will decrease the doses Abnormal CTA chest: Concern for a blood clot D-dimer elevated at 940 US venous Doppler BLE- no noted DVT though limited by edema Consider repeat CTA chest PE protocol in 2 days to confirm blood clot Patient does have history of IVC filter placed about 20 years ago per patient. INR currently supratherapeutic at 5.3, holding coumadin at this time. Doubt any pulmonary embolism given the INR was supratherapeutic on admission and required vitamin K Thyroid nodules Multiple thyroid nodules noted, thyroid ultrasound recommended, can be done as an outpatient after discharge. 8 mm left apex pulmonary nodule and 6 mm left lower lobe pulmonary nodule noted, follow-up CT scan in 3 months recommended. DMII hemoglobin a1c of 7.2 Hold home meds Basal/bolus while hospitalized Other chronic medical conditions: continue other home meds Diet: DMII, HH, Low sodium DVT prophylaxis: Patient is supratherapeutic INR. Full code Dispo: consider ordering PT/OT once INR therapeutic, in an effort to be extra cautious about potentially falling with activity. We will get PT and OT evaluation-recommended rehab placement Awaiting placement Admission and Anticipated Discharge Date Admission Date: April 21, 2023 Subjective 04/23/2023 The patient was seen and examined in telemetry unit in presence of the son He has been feeling much better-denies any respiratory symptoms at rest Still complains of back pain without radiation and are without any bladder and or bowel issue 04/24/2023 The patient was seen and examined in telemetry unit He has been stable and has been taking narcotic pain medications for the back pain and which is making him drowsy Denies any chest pain and/or palpitation and no shortness of breath at rest 04/25/2023 The patient was seen and examined in telemetry unit in presence of the son He has been little drowsy but otherwise denies any symptoms Back pain seems to be controlled with current pain medication Physical therapy recommended rehab 04/26/2023 The patient was seen and examined in telemetry unit in presence of the son He complains to have pain at the lower back He is not controlled with current medication We will get lumbar spine CT scan with and without contrast 04/27/2023 The patient was seen and examined in telemetry unit He has been stable but remains little drowsy likely secondary to use of narcotic pain medication Denies any other symptoms Mamta dry 04/28/2023 The patient was seen and examined in telemetry unit He has been feeling much better today denies any significant symptoms Back pain is stable He is less drowsy today 04/29/2023 The patient was seen and examined in telemetry unit in presence of the son He has been feeling much better today His INR remains high at 3.6-we will hold Coumadin for today Reaction has been up-hold Lasix 04/30/2023 The patient was seen and examined in telemetry unit in presence of the son He has been stable and remains less drowsy Still having minimal hematuria but seems to be clearing up Back pain remains stable Review of Systems Review of Systems: All systems reviewed and are unremarkable except as noted below Physical Exam Physical Exam: Lying in bed comfortably Constitutional: well developed, well nourished, + ill appearing and + obese Eyes: PERRL, conjunctivae normal, anicteric sclerae ENMT: external ear and nose normal, oropharynx normal Neck: trachea midline, no thyromegaly Respiratory: no respiratory distress Auscultation: + diminished lung sounds and + crackles (Minimal crackles at the bases) Cardiovascular: Rate/Rhythm: + irregularly irregular; not tachycardic Heart Sounds: normal S1, normal S2 and + murmur Extremities: + edema (Trace edema bilaterally) Gastrointestinal (Abdomen): Inspection/Auscultation: normal bowel sounds; abdomen not distended Percussion/Palpation: abdomen soft; abdomen nontender Neurologic: normal touch/pain/proprioception and + meningeal signs; not confused Lymphatic: no cervical or axillary lymphadenopathy Results & Data Results & Data Vital Signs (Past 12 Hours) Vital Signs Temp Pulse Pulse Resp BP Pulse Ox Pulse Ox 04/30/23 16:18 78 04/30/23 15:15 36.6 C 78 16 112/65 98 04/30/23 13:55 36.6 C 72 16 119/64 93 04/30/23 12:21 36.4 C L 74 20 106/63 96 04/30/23 11:11 94 04/30/23 10:00 96 04/30/23 08:05 36.3 C L 76 18 144/86 H 98 04/30/23 08:00 81 04/30/23 08:00 O2 Del Method O2 Del Method O2 Flow Rate O2 Flow Rate 04/30/23 16:18 04/30/23 15:15 Nasal Cannula 2 04/30/23 13:55 Nasal Cannula 2 04/30/23 12:21 Nasal Cannula 2.0 04/30/23 11:11 2 04/30/23 10:00 Nasal Cannula 2 04/30/23 08:05 Nasal Cannula 2.0 04/30/23 08:00 04/30/23 08:00 Nasal Cannula 2 Laboratory Results [facility] 04/30/23 07:26 Sodium 133 L Potassium 4.8 Chloride 96 L Carbon Dioxide 31 BUN 39 H Creatinine 1.47 H D Glucose 149 H Calcium 9.0 Medications Administered Current Inpatient Medications Acetaminophen (Acetaminophen 325 Mg Tab) 650 mg PO Q4H PRN PRN Reason: Pain or Fever Stop: 05/21/23 10:30 Last Admin: 04/23/23 03:08 Dose: 650 mg Al Hydrox/Mg Hydrox/Simethicone (Aluminum/Magnesium Susp 30 Ml Udc) 15 ml PO Q4H PRN PRN Reason: Dyspepsia Stop: 05/21/23 10:30 Last Admin: 04/22/23 16:48 Dose: 15 ml Allopurinol (Allopurinol 100 Mg Tab) 200 mg PO QAM [facility] Stop: 05/22/23 08:59 Last Admin: 04/30/23 08:29 Dose: 200 mg Aspirin (Aspirin 81 Mg Chew) 81 mg PO MoWeFr@0900 [facility] Stop: 05/23/23 08:59 Last Admin: 04/23/23 08:52 Dose: 81 mg Bismuth Subsalicylate (Bismuth Subsalicylate Susp) 30 ml PO DAILY PRN PRN Reason: Diarrhea Stop: 05/21/23 12:39 Brimonidine Tartrate (Brimonidine Tartrate 0.2% 5ml) 1 drops OPL BID [facility] Stop: 05/21/23 20:59 Last Admin: 04/30/23 08:31 Dose: 1 drops Dextrose (Dextrose 50% 50 Ml Syringe) 25 - 50 ml IV UD PRN; Protocol PRN Reason: Hypoglycemia Protocol Stop: 05/21/23 10:30 Diclofenac Sodium (Diclofenac Sod 1% Gel 100 Gm Tube) 4 gm EXT Q6H [facility]; Protocol Stop: 05/21/23 11:44 Last Admin: 04/30/23 12:19 Dose: 4 gm Dorzolamide/Timolol (Dorzolamide/Timolol 22.3/6.8mg/Ml 10 Ml Btl) 1 drops OPL BID [facility] Stop: 05/21/23 20:59 Last Admin: 04/30/23 08:32 Dose: 1 drops Ezetimibe (Ezetimibe 10 Mg Tab) 10 mg PO HS [facility] Stop: 05/21/23 22:14 Last Admin: 04/29/23 20:41 Dose: 10 mg Furosemide (Furosemide 40 Mg Tab) 40 mg PO [id number] [facility]ONAN Stop: 05/24/23 16:59 Last Admin: 04/28/23 08:11 Dose: 40 mg Glucagon (Glucagon For Inj 1 Mg Vial) 1 mg SQ UD PRN; Protocol PRN Reason: Hypoglycemia Protocol Stop: 05/21/23 10:30 Glucose (Glucose 10 Tab/Tube) 4 - 8 tab PO UD PRN; Protocol PRN Reason: Hypoglycemia Treatment Stop: 05/21/23 10:30 Glucose (Glucose 40% Gel 15 Gm Tube) 15 - 30 gm PO UD PRN; Protocol PRN Reason: Hypoglycemia Protocol Stop: 05/21/23 10:30 Insulin Aspart (Insulin Aspart Per Unit Charge) 0 units SC ACHS [facility] Stop: 05/21/23 11:29 Last Admin: 04/30/23 12:26 Dose: 7 units Insulin Glargine (Lantus Per Unit Charge) 17 units SQ HS [facility] Stop: 05/30/23 20:59 Lactic Acid (Ammonium Lactate 12% Lotion 225 Gm Btl) 1 gm EXT BID [facility]ON[facility] Stop: 05/21/23 10:29 Last Admin: 04/30/23 08:32 Dose: 1 gm Magnesium Hydroxide (Magnesium Hydroxide Susp 30 Ml Udc) 30 ml PO Q12H PRN PRN Reason: Constipation Stop: 05/21/23 10:30 Magnesium Oxide (Magnesium Oxide 400 Mg Tab) 400 mg PO BID RONAN Stop: 05/22/23 20:59 Last Admin: 04/30/23 08:30 Dose: 400 mg Metoprolol Succinate (Metoprolol Succ 50mg Ext Rel Tab) 100 mg PO BID RONAN Stop: 05/21/23 13:29 Last Admin: 04/30/23 08:29 Dose: 100 mg Miscellaneous (Carbohydrates For Hypoglycemia ) 15 - 30 gm PO UD PRN PRN Reason: Hypoglycemia Protocol Stop: 05/21/23 10:30 Miscellaneous Information (Pharmacy Glycemic Mgmt Consult) 1 each N/A UD PRN PRN Reason: Consult Stop: 05/21/23 10:30 Netarsudil (Netarsudil Mesylate 37 Drops/2.5 Ml Btl) 2 drops OPL HS [facility] Stop: 05/25/23 20:59 Last Admin: 04/29/23 20:55 Dose: 2 drops Polyethylene Glycol (Polyethylene (Miralax) 17 Gm Pack) 17 gm PO DAILY PRN PRN Reason: Constipation Stop: 05/22/23 16:56 Last Admin: 04/27/23 12:25 Dose: 17 gm Polymyxin/Trimethoprim Sulfate (Trimethoprim/Polymyxin B) 1 drops OPR BID RONAN Stop: 05/24/23 20:59 Last Admin: 04/30/23 08:31 Dose: 1 drops Simvastatin (Simvastatin 40 Mg Tab) 40 mg PO HS [facility]ON[facility] Stop: 05/21/23 22:14 Last Admin: 04/29/23 20:41 Dose: 40 mg Spironolactone (Spironolactone 12.5 Mg Tab) 12.5 mg PO DAILY [facility] Stop: 05/23/23 10:14 Last Admin: 04/30/23 08:30 Dose: 12.5 mg Terazosin HCl (Terazosin Hcl 1 Mg Cap) 2 mg PO DAILY [facility]ON[facility] Stop: 05/22/23 08:59 Last Admin: 04/30/23 08:30 Dose: 2 mg Travoprost (Travoprost Z 0.004% Oph Soln 2.5 Ml Btl) 1 drops OPB HS [facility] Stop: 05/23/23 20:59 Last Admin: 04/24/23 20:25 Dose: 1 drops Warfarin Sodium (Warfarin Sod 2 Mg Tab) 2 mg PO DAILY@1600 [facility] Stop: 05/31/23 15:59 (1) CHF (congestive heart failure) Heart failure chronicity: acute Heart failure type: unspecified Qualified Code(s): I50.9 - Heart failure, unspecified
[2023-04-30] MEDS: SIMVASTATIN 40 MG TAB PO SCH (20:24)
[2023-04-30] MEDS: EZETIMIBE 10 MG TAB PO SCH (20:24)
[2023-04-30] MEDS: LANTUS PER UNIT CHARGE SQ SCH (20:30)
[2023-04-30] MEDS: NETARSUDIL MESYLATE 37 DROPS/2.5 ML BTL OPL SCH (20:32)
[2023-05-01] MEDS: DICLOFENAC SOD 1% GEL 100 GM TUBE EXT SCH ×5 (00:38→23:38)
[2023-05-01 05:22] LABS: BUN Creatinine Ratio 25.9 (10-20); Calcium 9.3 mg/dl (8.6-10.3); Creatinine Clr Calc Pharmacy 50.7 ml/min; Est GFR (African American) 55.5 ml/min; Est GFR (Non-African American) 47.9 ml/min; Potassium 4.5 mmol/L (3.5-5.1)
[2023-05-01 05:32] LABS: INR 2.3 (0.9-1.1); Prothrombin Time 23.8 Seconds (9.0-12.0)
[2023-05-01] MEDS: METOPROLOL SUCC 50MG EXT REL TAB PO SCH ×2 (08:56→20:41)
[2023-05-01] MEDS: allopurinoL 100 MG TAB PO SCH (08:56)
[2023-05-01] MEDS: SPIRONOLACTONE 12.5 MG TAB PO SCH (08:56)
[2023-05-01] MEDS: AMMONIUM LACTATE 12% LOTION 225 GM BTL EXT SCH ×2 (08:56→20:43)
[2023-05-01] MEDS: MAGNESIUM OXIDE 400 MG TAB PO SCH ×2 (08:56→20:41)
[2023-05-01] MEDS: TERAZOSIN HCL 1 MG CAP PO SCH (08:57)
[2023-05-01] MEDS: TRIMETHOPRIM/POLYMYXIN B OPR SCH ×2 (08:58→20:43)
[2023-05-01] MEDS: BRIMONIDINE TARTRATE 0.2% 5ML OPL SCH ×2 (08:58→20:43)
[2023-05-01] MEDS: DORZOLAMIDE/TIMOLOL 22.3/6.8MG/ML 10 ML BTL OPL SCH ×2 (08:59→20:42)
[2023-05-01] MEDS: INSULIN ASPART PER UNIT CHARGE SC SCH ×4 (09:03→20:44)
[2023-05-01 13:17] LABS: Appearance Urine Turbid (Clear); Bilirubin Urine Negative (Negative); Blood Urine 3+ (Negative); Color Urine Red; Glucose Urine UA Trace (Negative); Ketones Urine Negative (Negative); Leukocyte Esterase Urine 1+ (Negative); Nitrite Urine Negative (Negative); Protein Urine 3+ (Negative); Urobilinogen Urine Negative (Negative); pH Urine 7.5 (4.5-7.5)
[2023-05-01 13:59] LABS: Bacteria Urine 1+ (Negative); RBC Urine >30 /hpf (0-4); WBC Urine >30 /hpf (0-5)
[2023-05-01] MEDS ORDERED: WARFARIN SOD 2 MG TAB PO SCH (16:00)
--- NOTE | 2023-05-01 17:40 | Hospitalist Progress Note ---
Date of Service May 01, 2023 Assessment & Plan (1) CHF (congestive heart failure): Plan Patient came in with low back pain, was found to be hypoxic at 78% on room air in ED. CTA chest was done which showed pulmonary edema and is concerning for questionable small blood clot. He is being managed for the following: Hematuria Seems to be clearing up Likely secondary to trauma due to fall-complicated by Coumadin We will maintain INR between 2-3 Reduce the dose of Coumadin to 2 mg a day Hematuria is persisting-urine was sent for culture and sensitivity We will hold Coumadin and look for clearance of hematuria before discharge Likely he will and able to tolerate Coumadin due to bleeding Acute on chronic diastolic heart failure Patient hypoxic on room air, requiring 3 L oxygen on admission CT chest with pulmonary edema. BNP 621. Patient reports taking his home Lasix 40 mg daily. Continue Lasix 40 mg IV daily in the morning and 20 mg IV in the afternoon. Echo with EF 60-65%, LVH, RV elevation/overload, dilated atria, mod-severe mitral stenosis, mild-mod mitral regurg and mod tricuspid regurg. Cardiology consult-appreciate recs -Continue with IV diuretics -metoprolol succ 100mg BID for atrial fibrillation Heart healthy diet, less than 2 g sodium a day. Strict I's and O's, weights. Monitor replete electrolytes. Potassium added. 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 No acute cardiac symptoms and remains stable to be discharged from cardiac point of view Looks bloated but denies any symptoms We will continue the current medications We will hold evening diuretics today as creatinine is little bit up at 1.62 Creatinine has been increasing-we will keep holding Lasix for now He has not been drinking enough fluid and was strongly advised to drink 1.5 L a day No signs and or symptoms of fluid overload-Lasix remains on hold We will continue Lasix once a day on discharge Creatinine improves as of today and the patient can be discharged on furosemide maybe 1 time a day Remains drowsy Likely secondary to narcotic pain medication Will decrease the dose of narcotic pain medications to 5 mg every 8 hourly as needed Continue with PT evaluation Patient is less drowsy today-participating physical therapy Drowsiness is improved Low back pain Persistent, worsening Given persistence and significantly elevated INR, concern for bleeding, retroperitoneal? CT abd/pelvis reviewed from 04/21 MRI lumbar spine ordered as well as repeat CT abd/pelvis to r/o the above EXTR of the spine is consistent with degenerative changes Doubt any acute nerve compression Reassured we will try local diclofenac and warm compression Back pain is stable at rest and will get PT and OT evaluation Back pain is controlled with current medication Increasing back pain and will get lumbar disc spine CT scan with or without contrast to rule out any disc protrusion and/or nerve entrapment. He cannot have MRI CT scan of the lumbar spine with and without contrast did not show any evidence of acute disc problem but has osteoarthritic changes Reassured and he will have more physical therapy Pain is reasonably controlled We will continue the current pain medications Will reduce the use of narcotic pain medications Glaucoma Eye medications have been updated Atrial Fibrillation Currently in atrial fibrillation On metoprolol succinate, dose increased to 100mg BID Usually on coumadin, currently on hold with supratherapeutic INR INR went up to 7.2 today, received one dose of IV Vit K 2.5mg INR 5.3 after Vit K, continue to hold coumadin, AM recheck Will restart Coumadin from today He is rate is controlled Medically stable to be discharged-rate is controlled Supratherapeutic INR: Outpatient chart review with INR of 9.0 on 03/26/2023 Admitting INR of 6.5 INR went up to 7.2 today, received one dose of IV Vit K 2.5mg Per patient, he takes Coumadin half of 7.5 mg tablet every day except and Sunday. Hold Coumadin. INR in AM. No signs of bleeding at this time however back pain persistent and worsening (see below) Hgb stable. INR is 1.4 today-we will start Coumadin from today INR is 1.6 as of today-continue current dose of Coumadin INR remains therapeutic-3.3 INR today 03/26/2023 We will check INR tomorrow and continue with the Coumadin INR remains high at 3.6-Coumadin is on hold and will decrease the doses INR is 2.3 today-we will hold any more Coumadin until hematuria improves or clears Abnormal CTA chest: Concern for a blood clot D-dimer elevated at 940 US venous Doppler BLE- no noted DVT though limited by edema Consider repeat CTA chest PE protocol in 2 days to confirm blood clot Patient does have history of IVC filter placed about 20 years ago per patient. INR currently supratherapeutic at 5.3, holding coumadin at this time. Doubt any pulmonary embolism given the INR was supratherapeutic on admission and required vitamin K Thyroid nodules Multiple thyroid nodules noted, thyroid ultrasound recommended, can be done as an outpatient after discharge. 8 mm left apex pulmonary nodule and 6 mm left lower lobe pulmonary nodule noted, follow-up CT scan in 3 months recommended. DMII hemoglobin a1c of 7.2 Hold home meds Basal/bolus while hospitalized Other chronic medical conditions: continue other home meds Diet: DMII, HH, Low sodium DVT prophylaxis: Patient is supratherapeutic INR. Full code Dispo: consider ordering PT/OT once INR therapeutic, in an effort to be extra cautious about potentially falling with activity. We will get PT and OT evaluation-recommended rehab placement Awaiting placement Admission and Anticipated Discharge Date Admission Date: April 21, 2023 Subjective 04/23/2023 The patient was seen and examined in telemetry unit in presence of the son He has been feeling much better-denies any respiratory symptoms at rest Still complains of back pain without radiation and are without any bladder and or bowel issue 04/24/2023 The patient was seen and examined in telemetry unit He has been stable and has been taking narcotic pain medications for the back pain and which is making him drowsy Denies any chest pain and/or palpitation and no shortness of breath at rest 04/25/2023 The patient was seen and examined in telemetry unit in presence of the son He has been little drowsy but otherwise denies any symptoms Back pain seems to be controlled with current pain medication Physical therapy recommended rehab 04/26/2023 The patient was seen and examined in telemetry unit in presence of the son He complains to have pain at the lower back He is not controlled with current medication We will get lumbar spine CT scan with and without contrast 04/27/2023 The patient was seen and examined in telemetry unit He has been stable but remains little drowsy likely secondary to use of narcotic pain medication Denies any other symptoms Mamta dry 04/28/2023 The patient was seen and examined in telemetry unit He has been feeling much better today denies any significant symptoms Back pain is stable He is less drowsy today 04/29/2023 The patient was seen and examined in telemetry unit in presence of the son He has been feeling much better today His INR remains high at 3.6-we will hold Coumadin for today Reaction has been up-hold Lasix 04/30/2023 The patient was seen and examined in telemetry unit in presence of the son He has been stable and remains less drowsy Still having minimal hematuria but seems to be clearing up Back pain remains stable 05/01/2023 The patient was seen and examined in telemetry unit in presence of the son He has been stable and remains less drowsy Still having hematuria and a UA was positive for blood and bacteria We will hold warfarin until urine is clear He may be discharged tomorrow Review of Systems Review of Systems: All systems reviewed and are unremarkable except as noted below Physical Exam Physical Exam: Lying in bed comfortably Constitutional: well developed, well nourished, + ill appearing and + obese Eyes: PERRL, conjunctivae normal, anicteric sclerae ENMT: external ear and nose normal, oropharynx normal Neck: trachea midline, no thyromegaly Respiratory: no respiratory distress Auscultation: + diminished lung sounds and + crackles (Minimal crackles at the bases) Cardiovascular: Rate/Rhythm: + irregularly irregular; not tachycardic Heart Sounds: normal S1, normal S2 and + murmur Extremities: + edema (Trace edema bilaterally) Gastrointestinal (Abdomen): Inspection/Auscultation: normal bowel sounds; abdomen not distended Percussion/Palpation: abdomen soft; abdomen nontender Neurologic: normal touch/pain/proprioception and + meningeal signs; not confused Lymphatic: no cervical or axillary lymphadenopathy Results & Data Results & Data Vital Signs (Past 12 Hours) Vital Signs Temp Pulse Pulse Resp BP Pulse Ox O2 Del Method 05/01/23 16:49 36.7 C 76 17 136/72 94 Room Air 05/01/23 12:38 36.4 C L 76 18 111/68 95 Room Air 05/01/23 09:00 Nasal Cannula 05/01/23 08:01 36.5 C 70 18 135/69 98 Nasal Cannula 05/01/23 05:59 81 O2 Flow Rate 05/01/23 16:49 05/01/23 12:38 05/01/23 09:00 2 05/01/23 08:01 2.0 05/01/23 05:59 Laboratory Results BMP 05/01/23 04:27 Sodium 133 L Potassium 4.5 Chloride 97 L Carbon Dioxide 31 BUN 35 H Creatinine 1.35 Glucose 161 H Calcium 9.3 Urine 05/01/23 Range/Units Unknown Urine Color Red Urine Appearance Turbid A (Clear) Urine pH 7.5 (4.5-7.5) Ur Specific [place]le 1.020 (1.000-1.030) Urine Protein 3+ H (Negative) Urine Glucose (UA) Trace H (Negative) Medications Administered Current Inpatient Medications Acetaminophen (Acetaminophen 325 Mg Tab) 650 mg PO Q4H PRN PRN Reason: Pain or Fever Stop: 05/21/23 10:30 Last Admin: 04/23/23 03:08 Dose: 650 mg Al Hydrox/Mg Hydrox/Simethicone (Aluminum/Magnesium Susp 30 Ml Udc) 15 ml PO Q4H PRN PRN Reason: Dyspepsia Stop: 05/21/23 10:30 Last Admin: 04/22/23 16:48 Dose: 15 ml Allopurinol (Allopurinol 100 Mg Tab) 200 mg PO QAM [facility] Stop: 05/22/23 08:59 Last Admin: 05/01/23 08:56 Dose: 200 mg Aspirin (Aspirin 81 Mg Chew) 81 mg PO MoWeFr@0900 [facility] Stop: 05/23/23 08:59 Last Admin: 04/23/23 08:52 Dose: 81 mg Bismuth Subsalicylate (Bismuth Subsalicylate Susp) 30 ml PO DAILY PRN PRN Reason: Diarrhea Stop: 05/21/23 12:39 Brimonidine Tartrate (Brimonidine Tartrate 0.2% 5ml) 1 drops OPL BID [facility] Stop: 05/21/23 20:59 Last Admin: 05/01/23 08:58 Dose: 1 drops Dextrose (Dextrose 50% 50 Ml Syringe) 25 - 50 ml IV UD PRN; Protocol PRN Reason: Hypoglycemia Protocol Stop: 05/21/23 10:30 Diclofenac Sodium (Diclofenac Sod 1% Gel 100 Gm Tube) 4 gm EXT Q6H RONAN; Protocol Stop: 05/21/23 11:44 Last Admin: 05/01/23 13:18 Dose: 4 gm Dorzolamide/Timolol (Dorzolamide/Timolol 22.3/6.8mg/Ml 10 Ml Btl) 1 drops OPL BID [facility] Stop: 05/21/23 20:59 Last Admin: 05/01/23 08:59 Dose: 1 drops Ezetimibe (Ezetimibe 10 Mg Tab) 10 mg PO HS [facility] Stop: 05/21/23 22:14 Last Admin: 04/30/23 20:24 Dose: 10 mg Furosemide (Furosemide 40 Mg Tab) 40 mg PO [id number] RONAN Stop: 05/24/23 16:59 Last Admin: 04/28/23 08:11 Dose: 40 mg Glucagon (Glucagon For Inj 1 Mg Vial) 1 mg SQ UD PRN; Protocol PRN Reason: Hypoglycemia Protocol Stop: 05/21/23 10:30 Glucose (Glucose 10 Tab/Tube) 4 - 8 tab PO UD PRN; Protocol PRN Reason: Hypoglycemia Treatment Stop: 05/21/23 10:30 Glucose (Glucose 40% Gel 15 Gm Tube) 15 - 30 gm PO UD PRN; Protocol PRN Reason: Hypoglycemia Protocol Stop: 05/21/23 10:30 Insulin Aspart (Insulin Aspart Per Unit Charge) 0 units SC ACHS [facility] Stop: 05/21/23 11:29 Last Admin: 05/01/23 13:19 Dose: 6 units Insulin Glargine (Lantus Per Unit Charge) 17 units SQ HS [facility] Stop: 05/30/23 20:59 Last Admin: 04/30/23 20:30 Dose: 17 units Lactic Acid (Ammonium Lactate 12% Lotion 225 Gm Btl) 1 gm EXT BID [facility] Stop: 05/21/23 10:29 Last Admin: 05/01/23 08:56 Dose: 1 gm Magnesium Hydroxide (Magnesium Hydroxide Susp 30 Ml Udc) 30 ml PO Q12H PRN PRN Reason: Constipation Stop: 05/21/23 10:30 Magnesium Oxide (Magnesium Oxide 400 Mg Tab) 400 mg PO BID [facility] Stop: 05/22/23 20:59 Last Admin: 05/01/23 08:56 Dose: 400 mg Metoprolol Succinate (Metoprolol Succ 50mg Ext Rel Tab) 100 mg PO BID [facility] Stop: 05/21/23 13:29 Last Admin: 05/01/23 08:56 Dose: 100 mg Miscellaneous (Carbohydrates For Hypoglycemia ) 15 - 30 gm PO UD PRN PRN Reason: Hypoglycemia Protocol Stop: 05/21/23 10:30 Miscellaneous Information (Pharmacy Glycemic Mgmt Consult) 1 each N/A UD PRN PRN Reason: Consult Stop: 05/21/23 10:30 Netarsudil (Netarsudil Mesylate 37 Drops/2.5 Ml Btl) 2 drops OPL HS [facility]ONAN Stop: 05/25/23 20:59 Last Admin: 04/30/23 20:32 Dose: 2 drops Polyethylene Glycol (Polyethylene (Miralax) 17 Gm Pack) 17 gm PO DAILY PRN PRN Reason: Constipation Stop: 05/22/23 16:56 Last Admin: 04/27/23 12:25 Dose: 17 gm Polymyxin/Trimethoprim Sulfate (Trimethoprim/Polymyxin B) 1 drops OPR BID RONAN Stop: 05/24/23 20:59 Last Admin: 05/01/23 08:58 Dose: 1 drops Simvastatin (Simvastatin 40 Mg Tab) 40 mg PO HS [facility]ON[facility] Stop: 05/21/23 22:14 Last Admin: 04/30/23 20:24 Dose: 40 mg Spironolactone (Spironolactone 12.5 Mg Tab) 12.5 mg PO DAILY [facility]ON[facility] Stop: 05/23/23 10:14 Last Admin: 05/01/23 08:56 Dose: 12.5 mg Terazosin HCl (Terazosin Hcl 1 Mg Cap) 2 mg PO DAILY [facility]ON[facility] Stop: 05/22/23 08:59 Last Admin: 05/01/23 08:57 Dose: 2 mg Travoprost (Travoprost Z 0.004% Oph Soln 2.5 Ml Btl) 1 drops OPB HS [facility]ONAN Stop: 05/23/23 20:59 Last Admin: 04/24/23 20:25 Dose: 1 drops Warfarin Sodium (Warfarin Sod 2 Mg Tab) 2 mg PO DAILY@1600 [facility] Stop: 05/31/23 15:59 (1) CHF (congestive heart failure) Heart failure chronicity: acute Heart failure type: unspecified Qualified Code(s): I50.9 - Heart failure, unspecified
[2023-05-01] MEDS: SIMVASTATIN 40 MG TAB PO SCH (20:40)
[2023-05-01] MEDS: EZETIMIBE 10 MG TAB PO SCH (20:40)
[2023-05-01] MEDS: NETARSUDIL MESYLATE 37 DROPS/2.5 ML BTL OPL SCH (20:42)
[2023-05-01] MEDS: LANTUS PER UNIT CHARGE SQ SCH (20:44)
--- NOTE | 2023-05-02 03:56 | Urology Consultation ---
Date of Consultation May 02, 2023 Assessment & Plan (1) Hematuria: I visited with the patient at the bedside. While at the bedside I manually flushed and irrigated his catheter with approximately 1/2 L of irrigation solution. With this maneuver I was able to retrieve and evacuate a large amount of clot. I continue to flush and irrigate the cath until the urine started to clear somewhat no more clot was retrieved. Following this maneuver the Harper catheter was placed back to gravity drainage and was draining well. I did instruct the nurses that they could flush and irrigate the catheter if it becomes clogged again. Is also recommended that anticoagulation be held until his hematuria clears. History of Present Illness Reason for Consultation: Gross hematuria Attending Physician: Shaheen Olivares MD History of Present Illness This is an 83-year-old male who has been admitted to [facility] since 04/21/2023. The patient has been admitted for a congestive heart failure exacerbation. He was also noted to have a supratherapeutic INR at time of admission. The patient has had a Harper catheter inserted since admission. I was contacted by the medical service that the patient had gross hematuria and the nursing staff was having difficulty irrigating his Harper catheter. We are therefore asked to see for assistance with this problem. At the time of my arrival to the bedside the patient had gross hematuria with some visible blood clot noted in the Harper collection tubing. The patient noted that he did feel as though his bladder was full with some suprapubic discomfort. Relevant labs and imaging that the patient had it included a CT scan of the abdomen and pelvis. This was done on 04/22/2023. This showed that there were no acute abnormalities within the abdomen or pelvis. His bladder was noted to be unremarkable. There were renal cysts noted but the kidneys were otherwise u nremarkable. The pelvic portion of this exam was unremarkable. Most recent labs were from 05/01/2023 where he was noted to have an INR of 2.3. Chemistry profile showed sodium was 133 with a potassium of 4.5. BUN and creatinine were 35 and 1.3. Patient did have a urinalysis on 05/01/2023 that showed turbid urine with 3+ blood and 1+ leukocyte Estrace. There are greater than 30 white blood cells per high-power field in the study and 1+ bacteria. The specimen was negative for nitrites. Most recent CBC that the patient had was from 04/25/2023 that showed a hemoglobin and hematocrit 10.3 and 34.0. His white blood cell count and platelet count were normal. Although the patient did have some suprapubic discomfort he was in no distress. Allergies Allergy/AdvReac Type Severity Reaction Status Date / Time niacin Allergy Intermediate HIVES Verified 04/21/23 09:30 Home Medications Medication Instructions Recorded Confirmed Type nitroglycerin 0.4 mg sublingual 0.4 mg sublingual PRN PRN Chest 12/09/09 04/21/23 History tablet (Nitrostat) Pain ##0 terazosin 2 mg capsule 2 mg PO DAILY ##90 12/07/13 04/21/23 History bismuth subsalicylate 525 mg/15 mL 525 mg PO DAILY PRN Diarrhea ##0 10/13/15 04/21/23 History oral suspension travoprost 0.004 % eye drops 1 drp OPB HS #1 btl 10/13/15 04/21/23 History allopurinol 100 mg tablet 200 mg PO QAM 04/21/23 04/21/23 History aspirin 81 mg chewable tablet 81 mg PO .MON/SUN/Sun04/21/23 04/21/23 History brimonidine 0.2 % eye drops 1 drp OPL BID 04/21/23 04/21/23 History dorzolamide-timolol (PF) 2 %-0.5 % 1 drp OPL BID 04/21/23 04/21/23 History eye drops in a dropperette ezetimibe 10 mg-simvastatin 40 mg 1 tab PO HS 04/21/23 04/21/23 History tablet furosemide 40 mg tablet 40 mg PO QAM 04/21/23 04/21/23 History insulin aspart U-100 100 unit/mL 0 - 20 unit subcut .TIDWMEALS 04/21/23 04/21/23 History subcutaneous solution (Novolog U-100 Insulin aspart) insulin detemir U-100 100 unit/mL 20 unit subcut HS 04/21/23 04/21/23 History subcutaneous solution (Levemir U-100 Insulin) metformin 1,000 mg tablet 1,000 mg PO BID 04/21/23 04/21/23 History metoprolol succinate 25 mg 25 mg PO BID 04/21/23 04/21/23 History tablet,extended release 24 hr sotalol 120 mg tablet 120 mg PO BID 04/21/23 04/21/23 History warfarin 7.5 mg tablet 3.75 mg PO [id number] 04/21/23 04/21/23 History Patient History Social History Smoking Status: Former smoker Hx Alcohol Use: No Hx Substance Use: No Preferred Language: Wolof Communication Ability: Effective Wet Crown Blocking Operator Required: No Beliefs That Will Affect Care: None Current Living Situation: Other Current Living Situation Comment: with son Other Information That Helps Us Care for You: No Feels Safe at Home: Yes Safety Concerns: Feels Safe At This Time Assistive Devices: Cane and Walker Physical Exam Gastrointestinal (Abdomen): Patient's abdomen is soft and nondistended but he did have some suprapubic discomfort with palpation. Genitourinary: Patient had a [address] catheter [address] There was bloody urine with some visible clot in the Harper tubing. Results & Data Vital Signs (Past 12 Hours) Vital Signs Temp Pulse Pulse Resp BP Pulse Ox O2 Del Method 05/02/23 03:43 36.5 C 88 18 152/69 H 94 Room Air 05/01/23 23:46 36.8 C 76 18 129/73 94 Room Air 05/01/23 19:55 36.5 C 84 16 124/74 95 Room Air 05/01/23 16:49 36.7 C 76 17 136/72 94 Room Air PG Care Time/CCT Total # of Minutes Spent Total Time Spent with Patient: Total time spent is greater than 50% in coordination of care (as documented) at patient's floor/unit and/or counseling patient: Coding Level of Care Code 58829 INT INP/OBS CARE 2/55MIN Diagnoses Hematuria R31.9
[2023-05-02] MEDS: DICLOFENAC SOD 1% GEL 100 GM TUBE EXT SCH ×3 (05:18→17:58)
[2023-05-02 06:14] LABS: Basophils # (auto) 0.04 K/uL (0.00-0.20); Basophils % (auto) 0.5 %; Eosinophils # (auto) 0.24 K/uL (0.00-0.50); Eosinophils % (auto) 3.2 %; Hematocrit (blood only) 34.2 % (42.0-52.0); Hemoglobin 10.4 g/dl (14.0-18.0); Immature Granulocytes # (auto) 0.05 K/uL (0.01-0.20); Immature Granulocytes % (auto) 0.7 %; Lymphocytes # (auto) 0.94 K/uL (1.20-3.40); Lymphocytes % (auto) 12.4 %; Mean Corpuscular Hemoglobin 26.7 pg (25.0-34.0); Mean Corpuscular Hgb Conc 30.4 g/dL (32.0-36.0); Mean Corpuscular Volume 87.9 fL (80.0-100.0); Mean Platelet Volume 10.6 fL (9.4-12.4); Monocytes % (auto) 13.1 %; Neutrophils # (auto) 5.34 K/uL (1.40-6.50); Neutrophils % (auto) 70.1 %; Platelet Count 220 K/uL (130-400); RDW Coefficient of Variation 16.5 % (11.5-14.5); RDW Standard Deviation 52.8 fL (36.4-46.3); Red Blood Count 3.89 M/uL (4.70-6.10); White Blood Count 7.61 K/ul (4.8-10.8)
[2023-05-02 06:30] LABS: BUN Creatinine Ratio 25.8 (10-20); Calcium 9.4 mg/dl (8.6-10.3); Creatinine Clr Calc Pharmacy 48.8 ml/min; Est GFR (Non-African American) 55.2 ml/min; Potassium 4.4 mmol/L (3.5-5.1)
[2023-05-02 06:37] LABS: INR 1.3 (0.9-1.1)
[2023-05-02] MEDS: MAGNESIUM OXIDE 400 MG TAB PO SCH ×2 (08:54→20:02)
[2023-05-02] MEDS: allopurinoL 100 MG TAB PO SCH (08:54)
[2023-05-02] MEDS: DORZOLAMIDE/TIMOLOL 22.3/6.8MG/ML 10 ML BTL OPL SCH ×2 (08:54→19:57)
[2023-05-02] MEDS: SPIRONOLACTONE 12.5 MG TAB PO SCH (08:54)
[2023-05-02] MEDS: METOPROLOL SUCC 50MG EXT REL TAB PO SCH ×2 (08:54→20:01)
[2023-05-02] MEDS: TERAZOSIN HCL 1 MG CAP PO SCH (08:54)
[2023-05-02] MEDS: TRIMETHOPRIM/POLYMYXIN B OPR SCH ×2 (08:55→19:58)
[2023-05-02] MEDS: BRIMONIDINE TARTRATE 0.2% 5ML OPL SCH ×2 (08:55→19:56)
[2023-05-02] MEDS: AMMONIUM LACTATE 12% LOTION 225 GM BTL EXT SCH ×2 (08:55→20:04)
[2023-05-02] MEDS: INSULIN ASPART PER UNIT CHARGE SC SCH ×4 (09:00→20:21)
--- NOTE | 2023-05-02 12:58 | Urology Progress Note ---
Date of Service May 02, 2023 Assessment & Plan (1) Hematuria: Plan 83-year-old male who was admitted 04/21/2023 for a congestive heart failure exacerbation. He was also noted to have a supratherapeutic INR at time of admission. The patient has had a Harper catheter inserted on admission. He developed gross hematuria and the nursing staff was having difficulty irrigating his Harper catheter. - Urology asked to evaluate d/t gross hematuria. - Catheter was manually irrigated overnight with removal of a large amount of clot. - Hematuria possible due to catheter trauma from insertion and supratherapeutic INR on admission. - Afebrile and hemodynamically stable. - Labs reviewed-WBC 7.61, hemoglobin 10.4, creatinine 1.20. - Urine culture pending. - Harper intact, draining light pink urine. No clots visualized at time of exam. - Maintain Harper catheter. Okay to hand irrigate as needed for clots, retention, suprapubic pain. - Anticoagulation on hold per primary team. - Follow culture. - Urology will follow. Plan of care reviewed with Dr. Friend, on-call urologist. Admission and Anticipated Discharge Date Admission Date: April 21, 2023 Subjective Patient examined at bedside this AM. Awake, resting bed on arrival. No acute distress. Harper intact, draining with hematuria. Patient required bladder irrigation overnight due to hematuria, clot retention. No fevers. Denies abdominal or suprapubic pain at present. Review of Systems Constitutional: as per Subjective / HPI Genitourinary: + as per Subjective / HPI Physical Exam Constitutional: no acute distress Respiratory: no respiratory distress and no labored breathing Skin: No visible rashes or lesions to exposed skin areas Neurologic: awake Psychiatric: Orientation: alert and cooperative Genitourinary: Harper intact, draining with hematuria Results & Data Vital Signs (Past 12 Hours) Vital Signs Temp Pulse Pulse Resp BP Pulse Ox O2 Del Method 05/02/23 11:35 36.4 C L 90 16 102/63 94 Room Air 05/02/23 07:49 36.5 C 92 H 18 143/77 H 95 Room Air 05/02/23 05:08 83 05/02/23 03:43 36.5 C 88 18 152/69 H 94 Room Air PG Care Time/CCT Total # of Minutes Spent Total Time Spent with Patient: Total time spent is greater than 50% in coordination of care (as documented) at patient's floor/unit and/or counseling patient: Coding Level of Care Code None Diagnoses Hematuria R31.9
--- NOTE | 2023-05-02 13:54 | Pharmacy Report ---
Pharmacy Glycemic Short Note 2 - Date of Service May 02, 2023 - Glycemic Short BSG Results (Last 24 hours): 05/01/23 05/01/23 05/02/23 17:10 20:16 05:44 Glucose 150 H POC Glucose 160 H 185 H 05/02/23 05/02/23 08:04 12:24 Glucose POC Glucose 155 H 221 H OUTPATIENT ANTIDIABETIC REGIMEN: * Levemir 20 units SQ HS * Novolog 0-20 units SS SQ TIDM * Metformin 1 gm PO BID HbA1c: 7.3% (04/22/23) ASSESSMENT: 05/02 * BSGs yesterday were [phone] mg/dL. Patient received 36 units of insulin (17 units of basal and 19 units of bolus). * Fasting today is 155 mg/dL. Continue Lantus. * Lunch BSG escalated to 221 mg/dL so feel reasonable to tighten CR. 04/30 * BSGs yesterday were [phone] mg/dL. Patient received 34 units of insulin (15 units of basal and 14 units of bolus). * Fasting today is 168 mg/dL. Increase basal by 10%. * Continue Novolog as BSGs stable. 04/27: * Received 25 units of insulin yesterday (15 units of basal and 10 units of prandial/correctional bolus) * Elevated fasting BSG this morning at 169 mg/dL, will increase basal scale to allow for additional basal this evening * BSGs have been largely stable, do not anticipate any other changes to glycemic regimen at this time * Patient is awaiting placement 04/26: * Patient received 15 units of basal last night and total of 6 units bolus. * BSGs yesterday were [phone] mg/dl. Fasting BSG today was 135 mg/dl. * Continued with basal insulin scale at HS same as before and Novolog parameters. 04/23/23: * BSGs trended up throughout the day yesterday * Will tighten Novolog parameters today in light of this * Received 16 units of insulin (10 units of basal and 6 units of prandial/correctional bolus) * Fasting BSG of 138 mg/dL today - allow for increased basal dose today 04/21/23: * 83 y/o M admitted for low back pain. He has history of Type 2 diabetes managed on basal and bolus insulins and oral Metformin at home. * Patient took his last dose of basal insulin prior to admission yesterday. Slightly reduced dose of basal (stress of 2) ordered for HS. * Novolog parameters ordered based off of his home doses. This may need tightened if BSGs are trending up. PLAN FOR INPATIENT GLYCEMIC CONTROL: * Hold outpatient oral diabetes medications * Basal insulin * Lantus 17 units SQ HS * Bolus insulin * NovoLog per scale ACHS or Q6hrs while NPO * Goal Range: Low 110 mg/dL - High 140 mg/dL * Correction Factor: 25 mg/dL/unit * Nutritional / Prandial insulin per carb ratio of 1 unit per 2 grams CHO consumed
--- NOTE | 2023-05-02 19:50 | Hospitalist Progress Note ---
Date of Service May 02, 2023 Assessment & Plan (1) CHF (congestive heart failure): Plan Patient came in with low back pain, was found to be hypoxic at 78% on room air in ED. CTA chest was done which showed pulmonary edema and is concerning for questionable small blood clot. He is being managed for the following: Hematuria Seems to be clearing up Likely secondary to trauma due to fall-complicated by Coumadin We will maintain INR between 2-3 Reduce the dose of Coumadin to 2 mg a day Hematuria is persisting-urine was sent for culture and sensitivity We will hold Coumadin and look for clearance of hematuria before discharge Likely he will and able to tolerate Coumadin due to bleeding Acute on chronic diastolic heart failure Patient hypoxic on room air, requiring 3 L oxygen on admission CT chest with pulmonary edema. BNP 621. Patient reports taking his home Lasix 40 mg daily. Continue Lasix 40 mg IV daily in the morning and 20 mg IV in the afternoon. Echo with EF 60-65%, LVH, RV elevation/overload, dilated atria, mod-severe mitral stenosis, mild-mod mitral regurg and mod tricuspid regurg. Cardiology consult-appreciate recs -Continue with IV diuretics -metoprolol succ 100mg BID for atrial fibrillation Heart healthy diet, less than 2 g sodium a day. Strict I's and O's, weights. Monitor replete electrolytes. Potassium added. Clinically much better and is still requiring about 3 L to maintain saturation Denies any shortness of breath and no chest pain at rest We will continue the current regimen of diuretics Noted to have questionable hematuria likely secondary to trauma with the Harper but seems to be clearing up Has been diuresing enough with IV furosemide-which will be changed to oral diuretics from tomorrow Heart failure is now compensated and he denies any symptoms at rest We will continue diuretics as per race relations adviser No acute cardiac symptoms and remains stable to be discharged from cardiac point of view Looks bloated but denies any symptoms We will continue the current medications We will hold evening diuretics today as creatinine is little bit up at 1.62 Creatinine has been increasing-we will keep holding Lasix for now He has not been drinking enough fluid and was strongly advised to drink 1.5 L a day No signs and or symptoms of fluid overload-Lasix remains on hold We will continue Lasix once a day on discharge Creatinine improves as of today and the patient can be discharged on furosemide maybe 1 time a day Remains drowsy Likely secondary to narcotic pain medication Will decrease the dose of narcotic pain medications to 5 mg every 8 hourly as needed Continue with PT evaluation Patient is less drowsy today-participating physical therapy Drowsiness is improved Low back pain Persistent, worsening Given persistence and significantly elevated INR, concern for bleeding, retroperitoneal? CT abd/pelvis reviewed from 04/21 MRI lumbar spine ordered as well as repeat CT abd/pelvis to r/o the above EXTR of the spine is consistent with degenerative changes Doubt any acute nerve compression Reassured we will try local diclofenac and warm compression Back pain is stable at rest and will get PT and OT evaluation Back pain is controlled with current medication Increasing back pain and will get lumbar disc spine CT scan with or without contrast to rule out any disc protrusion and/or nerve entrapment. He cannot have MRI CT scan of the lumbar spine with and without contrast did not show any evidence of acute disc problem but has osteoarthritic changes Reassured and he will have more physical therapy Pain is reasonably controlled We will continue the current pain medications Will reduce the use of narcotic pain medications Glaucoma Eye medications have been updated Atrial Fibrillation Currently in atrial fibrillation On metoprolol succinate, dose increased to 100mg BID Usually on coumadin, currently on hold with supratherapeutic INR INR went up to 7.2 today, received one dose of IV Vit K 2.5mg INR 5.3 after Vit K, continue to hold coumadin, AM recheck Will restart Coumadin from today He is rate is controlled Medically stable to be discharged-rate is controlled Supratherapeutic INR: Outpatient chart review with INR of 9.0 on 03/26/2023 Admitting INR of 6.5 INR went up to 7.2 today, received one dose of IV Vit K 2.5mg Per patient, he takes Coumadin half of 7.5 mg tablet every day except and Sunday. Hold Coumadin. INR in AM. No signs of bleeding at this time however back pain persistent and worsening (see below) Hgb stable. INR is 1.4 today-we will start Coumadin from today INR is 1.6 as of today-continue current dose of Coumadin INR remains therapeutic-3.3 INR today 03/26/2023 We will check INR tomorrow and continue with the Coumadin INR remains high at 3.6-Coumadin is on hold and will decrease the doses INR is 2.3 today-we will hold any more Coumadin until hematuria improves or clears Abnormal CTA chest: Concern for a blood clot D-dimer elevated at 940 US venous Doppler BLE- no noted DVT though limited by edema Consider repeat CTA chest PE protocol in 2 days to confirm blood clot Patient does have history of IVC filter placed about 20 years ago per patient. INR currently supratherapeutic at 5.3, holding coumadin at this time. Doubt any pulmonary embolism given the INR was supratherapeutic on admission and required vitamin K Thyroid nodules Multiple thyroid nodules noted, thyroid ultrasound recommended, can be done as an outpatient after discharge. 8 mm left apex pulmonary nodule and 6 mm left lower lobe pulmonary nodule noted, follow-up CT scan in 3 months recommended. DMII hemoglobin a1c of 7.2 Hold home meds Basal/bolus while hospitalized Other chronic medical conditions: continue other home meds Diet: DMII, HH, Low sodium DVT prophylaxis: Patient is supratherapeutic INR. Full code Dispo: consider ordering PT/OT once INR therapeutic, in an effort to be extra cautious about potentially falling with activity. We will get PT and OT evaluation-recommended rehab placement Awaiting placement Admission and Anticipated Discharge Date Admission Date: April 21, 2023 Results & Data Results & Data Vital Signs (Past 12 Hours) Vital Signs Temp Pulse Pulse Resp BP Pulse Ox O2 Del Method 05/02/23 16:42 89 05/02/23 14:47 36.3 C L 87 16 116/65 94 Room Air 05/02/23 11:35 36.4 C L 90 16 102/63 94 Room Air (1) CHF (congestive heart failure) Heart failure chronicity: acute Heart failure type: unspecified Qualified Code(s): I50.9 - Heart failure, unspecified
[2023-05-02] MEDS: NETARSUDIL MESYLATE 37 DROPS/2.5 ML BTL OPL SCH (19:57)
[2023-05-02] MEDS: EZETIMIBE 10 MG TAB PO SCH (20:00)
[2023-05-02] MEDS: SIMVASTATIN 40 MG TAB PO SCH (20:02)
[2023-05-02] MEDS: LANTUS PER UNIT CHARGE SQ SCH (20:22)
[2023-05-03] MEDS: DICLOFENAC SOD 1% GEL 100 GM TUBE EXT SCH ×4 (00:06→17:47)
[2023-05-03] MEDS: allopurinoL 100 MG TAB PO SCH (08:04)
[2023-05-03] MEDS: MAGNESIUM OXIDE 400 MG TAB PO SCH ×2 (08:05→20:53)
[2023-05-03] MEDS: DORZOLAMIDE/TIMOLOL 22.3/6.8MG/ML 10 ML BTL OPL SCH ×2 (08:06→20:52)
--- NOTE | 2023-05-03 08:06 | Urology Progress Note ---
Date of Service May 03, 2023 Assessment & Plan (1) Hematuria: Plan 83-year-old male who was admitted 04/21/2023 for a congestive heart failure exacerbation. He was also noted to have a supratherapeutic INR at time of admission. The patient has had a Harper catheter inserted on admission. He developed gross hematuria and the nursing staff was having difficulty irrigating his Harper catheter. Urology asked to evaluate d/t gross hematuria. - Hematuria has cleared. Catheter currently draining clear yellow urine. - Urine culture preliminary with Enterococcus. On oral Macrobid. - Maintain Harper catheter. Okay to hand irrigate as needed for clots, retention, suprapubic pain. - Recommend maintaining Harper catheter for now to allow for bladder decompression given positive urine culture. - Continue supportive care and antibiotics. - If urine remains clear, can likely have a voiding trial prior to discharge or we can arrange as an outpatient in the urology office if needed. - Urology will follow peripherally. Please contact us any further questions/concerns. Admission and Anticipated Discharge Date Admission Date: April 21, 2023 Subjective Patient examined at bedside this AM. Awake, sitting in bedside chair on arrival. No acute distress. Harper intact, draining clear yellow urine. Denies abdominal or suprapubic pain at present. Review of Systems Constitutional: as per Subjective / HPI Genitourinary: + as per Subjective / HPI Physical Exam Constitutional: no acute distress Respiratory: no respiratory distress and no labored breathing Skin: No visible rashes or lesions to exposed skin areas Neurologic: awake Psychiatric: Orientation: alert and cooperative Genitourinary: Harper intact, draining clear yellow urine Results & Data Vital Signs (Past 12 Hours) Vital Signs Temp Pulse Pulse Resp BP Pulse Ox O2 Del Method 05/03/23 07:40 36.5 C 79 18 157/75 H 98 Room Air 05/03/23 03:30 36.4 C 89 18 153/79 H 96 Room Air 05/02/23 23:18 36.7 C 79 18 148/75 H 94 Room Air 05/02/23 22:01 77 05/02/23 20:39 36.5 C 81 18 113/64 94 Room Air PG Care Time/CCT Total # of Minutes Spent Total Time Spent with Patient: Total time spent is greater than 50% in coordination of care (as documented) at patient's floor/unit and/or counseling patient: Coding Level of Care Code 32511 SUB INP/OBS CARE MIN Diagnoses Hematuria R31.9
[2023-05-03] MEDS: METOPROLOL SUCC 50MG EXT REL TAB PO SCH ×2 (08:07→20:54)
[2023-05-03] MEDS: SPIRONOLACTONE 12.5 MG TAB PO SCH (08:08)
[2023-05-03] MEDS: TERAZOSIN HCL 1 MG CAP PO SCH (08:08)
[2023-05-03] MEDS: BRIMONIDINE TARTRATE 0.2% 5ML OPL SCH ×2 (08:09→19:54)
[2023-05-03] MEDS: AMMONIUM LACTATE 12% LOTION 225 GM BTL EXT SCH ×2 (08:11→20:19)
[2023-05-03] MEDS: TRIMETHOPRIM/POLYMYXIN B OPR SCH ×2 (08:12→19:54)
[2023-05-03] MEDS: INSULIN ASPART PER UNIT CHARGE SC SCH ×4 (09:27→20:49)
[2023-05-03 09:47] LABS: Basophils # (auto) 0.05 K/uL (0.00-0.20); Basophils % (auto) 0.6 %; Eosinophils # (auto) 0.21 K/uL (0.00-0.50); Eosinophils % (auto) 2.7 %; Hematocrit (blood only) 33.1 % (42.0-52.0); Hemoglobin 10.3 g/dl (14.0-18.0); Immature Granulocytes # (auto) 0.06 K/uL (0.01-0.20); Immature Granulocytes % (auto) 0.8 %; Lymphocytes # (auto) 0.87 K/uL (1.20-3.40); Lymphocytes % (auto) 11.2 %; Mean Corpuscular Hemoglobin 27.1 pg (25.0-34.0); Mean Corpuscular Hgb Conc 31.1 g/dL (32.0-36.0); Mean Corpuscular Volume 87.1 fL (80.0-100.0); Mean Platelet Volume 10.7 fL (9.4-12.4); Monocytes # (auto) 0.95 K/uL (0.11-0.59); Monocytes % (auto) 12.3 %; Neutrophils % (auto) 72.4 %; Platelet Count 228 K/uL (130-400); RDW Coefficient of Variation 16.6 % (11.5-14.5); RDW Standard Deviation 51.9 fL (36.4-46.3); White Blood Count 7.74 K/ul (4.8-10.8)
[2023-05-03 10:02] LABS: BUN Creatinine Ratio 23.8 (10-20); Calcium 9.5 mg/dl (8.6-10.3); Creatinine Clr Calc Pharmacy 55.3 ml/min; Est GFR (African American) 62.7 ml/min; Est GFR (Non-African American) 54.1 ml/min; Potassium 4.1 mmol/L (3.5-5.1)
[2023-05-03] MEDS: NITROFURANTOIN MONOHYDRATE 100 MG CAP PO SCH ×2 (12:21→20:54)
--- NOTE | 2023-05-03 18:31 | Hospitalist Progress Note ---
Date of Service May 03, 2023 Assessment & Plan (1) CHF (congestive heart failure): Plan Patient came in with low back pain, was found to be hypoxic at 78% on room air in ED. CTA chest was done which showed pulmonary edema and is concerning for questionable small blood clot. He is being managed for the following: Hematuria UTI-probable Enterococcus species Seems to be clearing up Likely secondary to trauma due to fall-complicated by Coumadin We will maintain INR between 2-3 Reduce the dose of Coumadin to 2 mg a day Hematuria is persisting-urine was sent for culture and sensitivity We will hold Coumadin and look for clearance of hematuria before discharge Likely he will and able to tolerate Coumadin due to bleeding 05/03 Status post irrigation Urine now clear Hemoglobin stable Continue to maintain Harper catheter per urology service Started Macrobid twice daily, will need 10-day course Hold Coumadin for now, resume on Sunday if urine remains clear Acute on chronic diastolic heart failure Patient hypoxic on room air, requiring 3 L oxygen on admission CT chest with pulmonary edema. BNP 621. Patient reports taking his home Lasix 40 mg daily. Continue Lasix 40 mg IV daily in the morning and 20 mg IV in the afternoon. Echo with EF 60-65%, LVH, RV elevation/overload, dilated atria, mod-severe mitral stenosis, mild-mod mitral regurg and mod tricuspid regurg. Cardiology consult-appreciate recs -Continue with IV diuretics -metoprolol succ 100mg BID for atrial fibrillation Heart healthy diet, less than 2 g sodium a day. Strict I's and O's, weights. Monitor replete electrolytes. Potassium added. Clinically much better and is still requiring about 3 L to maintain saturation Denies any shortness of breath and no chest pain at rest We will continue the current regimen of diuretics Noted to have questionable hematuria likely secondary to trauma with the Harper but seems to be clearing up Has been diuresing enough with IV furosemide-which will be changed to oral diuretics from tomorrow Heart failure is now compensated and he denies any symptoms at rest We will continue diuretics as per vascular ultrasound technician No acute cardiac symptoms and remains stable to be discharged from cardiac point of view Looks bloated but denies any symptoms We will continue the current medications We will hold evening diuretics today as creatinine is little bit up at 1.62 Creatinine has been increasing-we will keep holding Lasix for now He has not been drinking enough fluid and was strongly advised to drink 1.5 L a day No signs and or symptoms of fluid overload-Lasix remains on hold We will continue Lasix once a day on discharge Creatinine improves as of today and the patient can be discharged on furosemide maybe 1 time a day 05/03 Patient is euvolemic Continue Lasix p.o. Remains drowsy Likely secondary to narcotic pain medication -Resolved Low back pain Persistent, worsening Given persistence and significantly elevated INR, concern for bleeding, retroperitoneal? CT abd/pelvis reviewed from 04/21 MRI lumbar spine ordered as well as repeat CT abd/pelvis to r/o the above EXTR of the spine is consistent with degenerative changes Doubt any acute nerve compression Reassured we will try local diclofenac and warm compression Back pain is stable at rest and will get PT and OT evaluation Back pain is controlled with current medication Increasing back pain and will get lumbar disc spine CT scan with or without contrast to rule out any disc protrusion and/or nerve entrapment. He cannot have MRI CT scan of the lumbar spine with and without contrast did not show any evidence of acute disc problem but has osteoarthritic changes Reassured and he will have more physical therapy Pain is reasonably controlled We will continue the current pain medications Will reduce the use of narcotic pain medications -Resolved Glaucoma Eye medications have been updated Atrial Fibrillation Currently in atrial fibrillation On metoprolol succinate, dose increased to 100mg BID Usually on coumadin, currently on hold with supratherapeutic INR INR went up to 7.2 today, received one dose of IV Vit K 2.5mg INR 5.3 after Vit K, continue to hold coumadin, AM recheck Will restart Coumadin from today He is rate is controlled Medically stable to be discharged-rate is controlled -Hold Coumadin in light of hematuria Supratherapeutic INR: Outpatient chart review with INR of 9.0 on 03/26/2023 Admitting INR of 6.5 INR went up to 7.2 today, received one dose of IV Vit K 2.5mg Per patient, he takes Coumadin half of 7.5 mg tablet every day except and Sunday. Hold Coumadin. INR in AM. No signs of bleeding at this time however back pain persistent and worsening (see below) Hgb stable. INR is 1.4 today-we will start Coumadin from today INR is 1.6 as of today-continue current dose of Coumadin INR remains therapeutic-3.3 INR today 03/26/2023 We will check INR tomorrow and continue with the Coumadin INR remains high at 3.6-Coumadin is on hold and will decrease the doses INR is 2.3 today-we will hold any more Coumadin until hematuria improves or clears 05/03 INR 1.6 Abnormal CTA chest: Concern for a blood clot D-dimer elevated at 940 US venous Doppler BLE- no noted DVT though limited by edema Consider repeat CTA chest PE protocol in 2 days to confirm blood clot Patient does have history of IVC filter placed about 20 years ago per patient. INR currently supratherapeutic at 5.3, holding coumadin at this time. Doubt any pulmonary embolism given the INR was supratherapeutic on admission and required vitamin K Thyroid nodules Multiple thyroid nodules noted, thyroid ultrasound recommended, can be done as an outpatient after discharge. 8 mm left apex pulmonary nodule and 6 mm left lower lobe pulmonary nodule noted, follow-up CT scan in 3 months recommended. DMII hemoglobin a1c of 7.2 Hold home meds Basal/bolus while hospitalized Other chronic medical conditions: continue other home meds Diet: DMII, HH, Low sodium DVT prophylaxis: Patient is supratherapeutic INR. Full code Dispo: Anticipate discharge to shelter facility tomorrow if urine remains clear Admission and Anticipated Discharge Date Admission Date: April 21, 2023 Subjective ff up for acute CHF, hematuria, etc. Seen sitting up in bed, comfortable, not in distress, in good spirits States he feels fine overall no chest pain, dyspnea, palpitations, dizziness No abdominal pain, nausea vomiting, fevers or chills, flank pains, back pain Urine output now yellow Review of Systems Review of Systems: all noted and negative except for above Physical Exam Physical Exam: General- oriented x 3, not in distress, speaks in sentences with no effort or accessory muscle use Eyes- anicteric Neck- no JVD Lungs- clear breath sounds bilaterally, no rales/wheezes Heart- normal rate, regular rhythm; no murmurs Abdomen- normal bowel sounds, nondistended, soft, nontender Harper catheter-yellow urine Extremities- no pretibial edema, no calf tenderness Neuro- alert, oriented x 3; no gross focal neurologic deficits Skin- warm & dry Results & Data Results & Data Vital Signs (Past 12 Hours) Vital Signs Temp Pulse Resp BP Pulse Ox O2 Del Method 05/03/23 15:45 36.4 C L 83 18 162/69 H 96 Room Air 05/03/23 11:31 36.3 C L 78 18 118/74 95 Room Air 05/03/23 07:40 36.5 C 79 18 157/75 H 98 Room Air all noted and reviewed including below (1) CHF (congestive heart failure) Heart failure chronicity: acute Heart failure type: unspecified Qualified Code(s): I50.9 - Heart failure, unspecified
[2023-05-03] MEDS: NETARSUDIL MESYLATE 37 DROPS/2.5 ML BTL OPL SCH (20:19)
[2023-05-03] MEDS: LANTUS PER UNIT CHARGE SQ SCH (20:49)
[2023-05-03] MEDS: EZETIMIBE 10 MG TAB PO SCH (20:54)
[2023-05-03] MEDS: SIMVASTATIN 40 MG TAB PO SCH (20:55)
[2023-05-04] MEDS: DICLOFENAC SOD 1% GEL 100 GM TUBE EXT SCH ×3 (01:00→11:46)
[2023-05-04] MEDS: allopurinoL 100 MG TAB PO SCH (07:59)
[2023-05-04] MEDS: SPIRONOLACTONE 12.5 MG TAB PO SCH (07:59)
[2023-05-04] MEDS: TERAZOSIN HCL 1 MG CAP PO SCH (07:59)
[2023-05-04] MEDS: AMMONIUM LACTATE 12% LOTION 225 GM BTL EXT SCH (07:59)
[2023-05-04] MEDS: NITROFURANTOIN MONOHYDRATE 100 MG CAP PO SCH (08:00)
[2023-05-04] MEDS: METOPROLOL SUCC 50MG EXT REL TAB PO SCH (08:00)
[2023-05-04] MEDS: MAGNESIUM OXIDE 400 MG TAB PO SCH (08:00)
[2023-05-04] MEDS: BRIMONIDINE TARTRATE 0.2% 5ML OPL SCH (08:01)
[2023-05-04] MEDS: DORZOLAMIDE/TIMOLOL 22.3/6.8MG/ML 10 ML BTL OPL SCH (08:01)
[2023-05-04] MEDS: TRIMETHOPRIM/POLYMYXIN B OPR SCH (08:02)
[2023-05-04] MEDS: INSULIN ASPART PER UNIT CHARGE SC SCH ×2 (08:40→12:27)
--- NOTE | 2023-05-04 12:22 | Hospitalist Progress Note ---
Date of Service May 04, 2023 Assessment & Plan (1) CHF (congestive heart failure): Plan per Dr. Olivares's notes with addendum: Patient came in with low back pain, was found to be hypoxic at 78% on room air in ED. CTA chest was done which showed pulmonary edema and is concerning for questionable small blood clot. He is being managed for the following: Acute on chronic diastolic heart failure Patient hypoxic on room air, requiring 3 L oxygen on admission CT chest with pulmonary edema. BNP 621. Echo with EF 60-65%, LVH, RV elevation/overload, dilated atria, mod-severe mitral stenosis, mild-mod mitral regurg and mod tricuspid regurg. Cardiology consult-appreciate recs -given IV Lasix -started metoprolol succ 100mg BID for atrial fibrillation diuresed well, transitioned to Lasix 40mg BID Hematuria UTI-probable Enterococcus species Likely secondary to trauma due to fall-complicated by Coumadin Harper cath placed during admission for output monitoring coumadin held Urologist consulted Irrigation performed, hematuria resolved Hemoglobin stable Harper catheter removed, patient voiding well Started Macrobid twice daily, will need 10-day course, will need 9 more days resume coumadin tomorrow if urine continues to be clear Low back pain CT scan of the lumbar spine with and without contrast did not show any evidence of acute disc problem but has osteoarthritic changes resolved with pain medications Glaucoma Eye medications have been updated Atrial Fibrillation On metoprolol succinate, dose increased to 100mg BID Usually on coumadin, held for elevated INR- Admitting INR of 6.5 INR went up to 7.2 today, received one dose of IV Vit K 2.5mg Per patient, he takes Coumadin half of 7.5 mg tablet every day except and Sunday. restart coumadin 3mg po daily tomorrow if urine remains clear monitor INR daily Abnormal CTA chest: Concern for a blood clot D-dimer elevated at 940 US venous Doppler BLE- no noted DVT though limited by edema Patient does have history of IVC filter placed about 20 years ago per patient. INR currently supratherapeutic at 5.3, holding coumadin at this time. Doubt any pulmonary embolism given the INR was supratherapeutic on admission and required vitamin K Thyroid nodules Multiple thyroid nodules noted, thyroid ultrasound recommended, can be done as an outpatient after discharge. 8 mm left apex pulmonary nodule and 6 mm left lower lobe pulmonary nodule noted, follow-up CT scan in 3 months recommended. DMII hemoglobin a1c of 7.2 resume usual medication Other chronic medical conditions: continue other home meds Diet: DMII, HH, Low sodium DVT prophylaxis: Patient is supratherapeutic INR. Full code Disposition discharge to SNF Admission and Anticipated Discharge Date Admission Date: April 21, 2023 Subjective ff up for CHF etc seen resting in bed, comfortable sitting up states he feels fine overall except for pain secondary to Harper Cath no chest pain, dyspnea, palpitations, dizziness no fever/chills, nausea no other symptoms Review of Systems Review of Systems: all noted and negative except for above Physical Exam Physical Exam: General- oriented x 3, not in distress, speaks in sentences with no effort or accessory muscle use Eyes- anicteric Neck- no JVD Lungs- clear breath sounds bilaterally, no rales/wheezes Heart- normal rate, regular rhythm; no murmurs Abdomen- normal bowel sounds, nondistended, soft, nontender Extremities- no pretibial edema, no calf tenderness Neuro- alert, oriented x 3; no gross focal neurologic deficits Skin- warm & dry Results & Data Results & Data Vital Signs (Past 12 Hours) Vital Signs Temp Pulse Pulse Pulse Resp BP Pulse Ox 05/04/23 08:12 36.6 C 95 H 22 128/70 96 05/04/23 08:00 91 H 05/04/23 08:00 05/04/23 03:29 36.5 C 80 18 131/65 O2 Del Method 05/04/23 08:12 Room Air 05/04/23 08:00 05/04/23 08:00 Room Air 05/04/23 03:29 all noted and reviewed including below (1) CHF (congestive heart failure) Heart failure chronicity: acute Heart failure type: unspecified Qualified Code(s): I50.9 - Heart failure, unspecified
--- NOTE | 2023-05-04 12:39 | Discharge Summary ---
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 Patient reports having a sore spot over the right lower back since last 4 to 5 days, denies any fall or trauma, thinks he might have twisted. He describes the pain as very sharp, 10+/10 with movement, relieved with rest at 1/10 intensity, improved with pain medication in the ED, no radiation. Patient denies febrile illness or flulike illness, denies pain or burning with passing urine, reports bowel movement at his baseline, reports baseline cough with scant light sputum, denies headache or dizziness or chest pain or palpitation or sore throat or belly pain. The pain on the right lower back is reproducible on exam with palpation. Patient reports being compliant with his Lasix, reports drinking 64 ounces of fluids a day, denies extra salt addition to his diet. Patient denies alcohol or recreational drug use, reports quitting smoking 30 y ears ago Full code Medications discussed with the patient Plan of care discussed with the patient and patient's son at bedside who voiced understanding. Patient's son Vu [[phone]]. Admission Exam Per Admitting Provider GENERAL: Alert and oriented x3. NAD, on 3L NC O2. HEENT: No pallor, no icterus. Pupils equal, round and reactive to light. Oral mucosa moist. NECK: No JVD, no neck masses. HEART: S1 and S2 heard. Regular rate and rhythm. + murmur, no gallop. RESPIRATORY SYSTEM: Normal AP diameter. No accessory muscle use. No wheezing, b/l mid and basal crackles. ABDOMEN: Soft, bowel sounds present, nontender, no distention. CENTRAL NERVOUS SYSTEM: No facial droop. Speech is clear. Obeys simple commands. Moves extremities. EXTREMITIES: BLE dry w/ scales, 2+ pitting edema Rt low back tenderness x minimal Principal Dx & Hospital Course #1 = Principal Diagnosis (1) CHF (congestive heart failure): Plan per Dr. Olivares's notes with addendum: Patient came in with low back pain, was found to be hypoxic at 78% on room air in ED. CTA chest was done which showed pulmonary edema and is concerning for questionable small blood clot. He is being managed for the following: Acute on chronic diastolic heart failure Patient hypoxic on room air, requiring 3 L oxygen on admission CT chest with pulmonary edema. BNP 621. Echo with EF 60-65%, LVH, RV elevation/overload, dilated atria, mod-severe mitral stenosis, mild-mod mitral regurg and mod tricuspid regurg. Cardiology consult-appreciate recs -given IV Lasix -started metoprolol succ 100mg BID for atrial fibrillation diuresed well, transitioned to usual Lasix 40mg daily and added Spironolactone 12.5mg po daily monitor volume status closely and check BMP regularly Hematuria UTI-probable Enterococcus species Likely secondary to trauma due to fall-complicated by Coumadin Harper cath placed during admission for output monitoring coumadin held Urologist consulted Irrigation performed, hematuria resolved Hemoglobin stable Harper catheter removed, patient voiding well Started Macrobid twice daily, will need 10-day course, will need 9 more days resume coumadin tomorrow if urine continues to be clear Low back pain CT scan of the lumbar spine with and without contrast did not show any evidence of acute disc problem but has osteoarthritic changes resolved with pain medications Glaucoma Eye medications have been updated Atrial Fibrillation On metoprolol succinate, dose increased to 100mg BID Usually on coumadin, held for elevated INR- Admitting INR of 6.5 INR went up to 7.2 today, received one dose of IV Vit K 2.5mg Per patient, he takes Coumadin half of 7.5 mg tablet every day except and Sunday. restart coumadin 3mg po daily tomorrow if urine remains clear monitor INR daily Abnormal CTA chest: Concern for a blood clot D-dimer elevated at 940 US venous Doppler BLE- no noted DVT though limited by edema Patient does have history of IVC filter placed about 20 years ago per patient. INR currently supratherapeutic at 5.3, holding coumadin at this time. Doubt any pulmonary embolism given the INR was supratherapeutic on admission and required vitamin K Thyroid nodules Multiple thyroid nodules noted, thyroid ultrasound recommended, can be done as an outpatient after discharge. 8 mm left apex pulmonary nodule and 6 mm left lower lobe pulmonary nodule noted, follow-up CT scan in 3 months recommended. DMII hemoglobin a1c of 7.2 resume usual medication Other chronic medical conditions: continue other home meds Diet: DMII, HH, Low sodium DVT prophylaxis: Patient is supratherapeutic INR. Full code Disposition discharge to SNF Discharge Exam General- oriented x 3, not in distress, speaks in sentences with no effort or accessory muscle use Eyes- anicteric Neck- no JVD Lungs- clear breath sounds bilaterally, no rales/wheezes Heart- normal rate, regular rhythm; no murmurs Abdomen- normal bowel sounds, nondistended, soft, nontender Extremities- no pretibial edema, no calf tenderness Neuro- alert, oriented x 3; no gross focal neurologic deficits Skin- warm & dry Updated Medication List Medication Instructions Recorded Confirmed Type nitroglycerin 0.4 mg sublingual 0.4 mg sublingual PRN PRN Chest 12/09/09 History tablet (Nitrostat) Pain ##0 terazosin 2 mg capsule 2 mg PO DAILY ##90 12/07/13 04/21/23 History bismuth subsalicylate 525 mg/15 mL 525 mg PO DAILY PRN Diarrhea ##0 10/13/15 04/21/23 History oral suspension travoprost 0.004 % eye drops 1 drp OPB HS #1 btl 10/13/15 04/21/23 History allopurinol 100 mg tablet 200 mg PO QAM 04/21/23 04/21/23 History aspirin 81 mg chewable tablet 81 mg PO .SUN/SUN/Sun04/21/23 04/21/23 History brimonidine 0.2 % eye drops 1 drp OPL BID 04/21/23 04/21/23 History dorzolamide-timolol (PF) 2 %-0.5 % 1 drp OPL BID 04/21/23 04/21/23 History eye drops in a dropperette ezetimibe 10 mg-simvastatin 40 mg 1 tab PO HS 04/21/23 04/21/23 History tablet furosemide 40 mg tablet 40 mg PO QAM 04/21/23 04/21/23 History insulin aspart U-100 100 unit/mL 0 - 20 unit subcut .TIDWMEALS 04/21/23 04/21/23 History subcutaneous solution (Novolog U-100 Insulin aspart) insulin detemir U-100 100 unit/mL 20 unit subcut HS 04/21/23 04/21/23 History subcutaneous solution (Levemir U-100 Insulin) metformin 1,000 mg tablet 1,000 mg PO BID 04/21/23 04/21/23 History metoprolol succinate 25 mg 25 mg PO BID 04/21/23 04/21/23 History tablet,extended release 24 hr sotalol 120 mg tablet 120 mg PO BID 04/21/23 04/21/23 History warfarin 7.5 mg tablet 3.75 mg PO 5XWK 04/21/23 04/21/23 History metoprolol succinate 50 mg 100 mg (2 x 50 mg) PO BID 30 days 05/04/23 Rx tablet,extended release 24 hr #120 tabs nitrofurantoin 100 mg PO BID 9 days #18 caps 05/04/23 Rx monohydrate/macrocrystals 100 mg capsule spironolactone 25 mg tablet 12.5 mg (1/2 x 25 mg) PO DAILY 30 05/04/23 Rx days #15 tabs warfarin 3 mg tablet 3 mg PO DAILY #30 tabs 05/04/23 Rx Hospital Stay Data Consultations 04/21/23 09:35 ED Decision to Admit Stat 04/21/23 10:26 Consult Cardiology Routine 05/02/23 03:32 Consult Urology Routine Diagnostic Imagining Performed Laboratory Results WBC 7.74 K/ul (4.8-10.8) 05/03/23 09:26 RBC 3.80 M/uL (4.70-6.10) L 05/03/23 09:26 Hgb 10.3 g/dl (14.0-18.0) L 05/03/23 09:26 Hct 33.1 % (42.0-52.0) L 05/03/23 09:26 MCV 87.1 fL (80.0-100.0) 05/03/23 09:26 MCH 27.1 pg (25.0-34.0) 05/03/23 09:26 MCHC 31.1 g/dL (32.0-36.0) L 05/03/23 09:26 RDW Std Deviation 51.9 fL (36.4-46.3) H 05/03/23 09:26 RDW Coeff of Radha 16.6 % (11.5-14.5) H 05/03/23 09:26 Plt Count 228 K/uL (130-400) 05/03/23 09:26 MPV 10.7 fL (9.4-12.4) 05/03/23 09:26 Immature Gran % (Auto) 0.8 % 05/03/23 09:26 Neut % (Auto) 72.4 % 05/03/23 09:26 Lymph % (Auto) 11.2 % 05/03/23 09:26 [place] % (Auto) 12.3 % 05/03/23 09:26 Eos % (Auto) 2.7 % 05/03/23 09:26 Baso % (Auto) 0.6 % 05/03/23 09:26 Neut # (Auto) 5.60 K/uL (1.40-6.50) 05/03/23 09:26 Lymph # (Auto) 0.87 K/uL (1.20-3.40) L 05/03/23 09:26 [place] # (Auto) 0.95 K/uL (0.11-0.59) H 05/03/23 09:26 Eos # (Auto) 0.21 K/uL (0.00-0.50) 05/03/23 09:26 Baso # (Auto) 0.05 K/uL (0.00-0.20) 05/03/23 09:26 Immature Gran # (Auto) 0.06 K/uL (0.01-0.20) 05/03/23 09:26 PT 14.0 Seconds (9.0-12.0) H 05/02/23 05:44 INR 1.3 (0.9-1.1) H 05/02/23 05:44 D-Dimer 940 ug/L FEU (0-500) H* 04/21/23 10:33 Sodium 133 mmol/L (136-145) L 05/03/23 09:26 Potassium 4.1 mmol/L (3.5-5.1) 05/03/23 09:26 Chloride 99 mmol/L (98-107) 05/03/23 09:26 Carbon Dioxide 29 mmol/L (21-32) 05/03/23 09:26 Anion Gap 5 (3-11) 05/03/23 09:26 BUN 29 mg/dl (6-23) H 05/03/23 09:26 Creatinine 1.22 mg/dl (0.6-1.4) 05/03/23 09:26 Est Cr Clr Drug Dosing 55.3 ml/min 05/03/23 09:26 Est GFR ( Amer) 62.7 ml/min 05/03/23 09:26 Est GFR (Non-Af Amer) 54.1 ml/min 05/03/23 09:26 BUN/Creatinine Ratio 23.8 (10-20) H 05/03/23 09:26 Glucose 214 mg/dl (70-99(Fasting)) H 05/03/23 09:26 POC Glucose 213 mg/dl (70-99) H 05/04/23 11:53 Estimat Average Glucose 163 mg/dl 04/22/23 04:37 Hemoglobin A1c 7.3 % (4.5-5.6) H 04/22/23 04:37 Calcium 9.5 mg/dl (8.6-10.3) 05/03/23 09:26 Ionized Calcium 1.26 mmol/L (1.12-1.32) 04/25/23 06:15 Phosphorus 3.0 mg/dl (2.5-4.9) 04/25/23 06:15 Magnesium 2.0 mg/dl (1.7-2.4) 04/28/23 06:50 Total Bilirubin 0.9 mg/dl (0.2-1.0) 04/25/23 06:15 AST 27 U/L (13-39) 04/25/23 06:15 ALT 21 U/L (7-52) 04/25/23 06:15 Alkaline Phosphatase 112 U/L (34-104) H 04/25/23 06:15 Troponin I High Sens 13.9 pg/ml (0-20) 04/21/23 06:17 B-Natriuretic Peptide 621 pg/ml (0-100) H 04/21/23 10:27 Total Protein 6.5 gm/dl (6.0-8.3) 04/25/23 06:15 Albumin 2.9 gm/dl (3.4-5.0) L 04/25/23 06:15 Globulin 3.6 gm/dl (2.5-4.0) 04/25/23 06:15 Albumin/Globulin Ratio 0.8 (0.9-2) L 04/25/23 06:15 Urine Color Red 05/01/23 Unknown Urine Appearance Turbid (Clear) A 05/01/23 Unknown Urine pH 7.5 (4.5-7.5) 05/01/23 Unknown Ur Specific Meally 1.020 (1.000-1.030) 05/01/23 Unknown Urine Protein 3+ (Negative) H 05/01/23 Unknown Urine Glucose (UA) Trace (Negative) H 05/01/23 Unknown Urine Ketones Negative (Negative) 05/01/23 Unknown Urine Blood 3+ (Negative) H 05/01/23 Unknown Urine Nitrite Negative (Negative) 05/01/23 Unknown Urine Bilirubin Negative (Negative) 05/01/23 Unknown Urine Urobilinogen Negative (Negative) 05/01/23 Unknown Ur Leukocyte Esterase 1+ (Negative) H 05/01/23 Unknown Urine WBC (Auto) 1-5 /hpf (0-5) 04/21/23 05:06 Urine RBC (Auto) 0-4 /hpf (0-4) 04/21/23 05:06 U Hyaline Cast (Auto) 1-5 /lpf (0-5) 04/21/23 05:06 U Epithel Cells (Auto) 10-20 /lpf (0-5) H 04/21/23 05:06 Urine Bacteria (Auto) Negative (Negative) 04/21/23 05:06 Urine RBC >30 /hpf (0-4) H 05/01/23 Unknown Urine WBC >30 /hpf (0-5) H 05/01/23 Unknown Ur Epithelial Cells 5-10 /lpf (0-5) H 05/01/23 Unknown Urine Bacteria 1+ (Negative) H 05/01/23 Unknown Impressions Chest CTA 04/21/23 08:09 CT angio chest PE protocol CLINICAL HISTORY: PE TECHNIQUE: Multidetector row helical CT of the chest was performed with angiographic protocol. Coronal and sagittal reformations were obtained. Coronal and sagittal MIPS were obtained from the axial data set and were submitted for review. Automated dose lowering techniques and/or adjustment according to stephanie ent size were utilized for this exam. CT DOSE: 2388.68 mGy.cm Comparison: Comparison is made to chest radiograph 10/13/2015 FINDINGS: Lungs and pleura: Small bilateral pleural effusions are seen. There is smooth intralobular septal thickening. Bronchiole wall thickening is noted and there is minimal atelectasis. There is a 8mm pulmonary nodule in the left apex (series 4 image 191) and a 6 mm nodule in the left lower lobe (image 89). Heart and pericardium: Cardiomegaly is seen with biatrial enlargement. Aortic valvular prosthesis is noted. Vessels: Severe atherosclerotic changes in the aorta and coronary arteries. There is a small filling defect in the right lower lobe (series 4 image 71). Mediastinum and chris: Numerous mediastinal lymph nodes measure up to 16 mm in diameter. Chest wall and lower neck: Multiple thyroid nodules measure up to 21 mm in diameter. Gynecomastia is noted. Abdomen: For findings below the diaphragm, please refer to CT of the abdomen dated the same. Bones: Degenerative changes in the thoracic spine. Nonspecific mild scattered sclerotic changes are seen for example in the right posterior sixth rib. IMPRESSION: 1. Findings are compatible with moderate to severe pulmonary edema. Bronchial thickening may represent small airways disease. Mediastinal nodes may be reactive. 2. Questionable pulmonary embolus in the medial right lower lobe segmental branch versus diminished flow to atelectatic lung. 3. Multiple thyroid nodules, if not previously evaluated, thyroid ultrasound can be performed. 4. Pulmonary nodules as above. According to Fleischner criteria, 3 month follow-up CT can be performed. ACT 112: Negative or not required by law. Electronically signed by: Chandrakant Head M.D. 04/21/2023 8:52 AM Venous Doppler Study 04/21/23 10:25 US venous doppler LE CLINICAL HISTORY: r/o dvt ble TECHNIQUE: Bilateral lower extremity real-time compression venous ultrasound with Color Doppler imaging. Utilizing real-time ultrasonic imaging multiple real time high-resolution ultrasonic images with compression and noncompression maneuvers of the deep venous system in addition to color doppler imaging were performed from the common femoral vein through the proximal calf veins. COMPARISON: None available at the time of this dictation. FINDINGS/IMPRESSION: Currently there is normal compressibility of the deep venous system from the common femoral vein through the proximal calf veins. Evaluation of calf vessels is limited by subcutaneous edema. ACT 112: Negative or not required by law. Electronically signed by: Chandrakant Head M.D. 04/21/2023 1:15 PM Abdomen/Pelvis CT 04/22/23 14:08 CT abd pelvis IV con only CLINICAL HISTORY: repeat, r/o retroperitoneal bleed, worse back pain TECHNIQUE: Helical axial images of the abdomen and pelvis were obtained and displayed. Automated dose lowering techniques and/or adjustment according to patient size were utilized for this exam. This exam was performed with intravenous contrast. CT DOSE: 1409.41 mGy.cm COMPARISON: Comparison is made to CT abdomen pelvis 04/21/2023 FINDINGS: Lower chest: Bilateral pleural effusions with associated atelectasis. Mitral annular calcification with atherosclerotic disease in the coronary arteries. Liver: Unremarkable. No focal lesions are seen. Gallbladder and biliary tree: Patient is status post cholecystectomy. No intra- or extrahepatic biliary ductal dilation. Pancreas: Unremarkable, no focal lesions. Spleen: Unremarkable. Adrenals: Unremarkable. Kidneys and ureters: Renal cysts are seen. Bladder: Unremarkable. Reproductive organs: Prostatomegaly is seen. Bowel: The appendix is normal. A small hiatal hernia is seen. Lymph nodes Retroperitoneal: Unremarkable. Pelvic: Unremarkable. Mesenteric: Unremarkable. Peritoneum: No acute abnormality, in particular no evidence of pneumoperitoneum. Vessels: IVC filter is seen. Atherosclerotic calcifications are noted. Abdominal wall: A fat-containing umbilical hernia is seen. Subcutaneous fat stranding is unchanged from prior exam. Bones: Degenerative changes in the visualized spine. Right hip total arthroplasty noted. Redemonstration of a few tiny sclerotic foci. IMPRESSION: 1. No acute abnormalities and in particular no evidence of retroperitoneal hemorrhage. 2. Postsurgical changes of cul-de-sac fluid. 3. Small bilateral pleural effusions. ACT 112: Negative or not required by law. Electronically signed by: Chandrakant Head M.D. 04/22/2023 4:22 PM Lumbar Spine X-Ray 04/22/23 14:28 XR lumbar spine 2-3V CLINICAL HISTORY: worsening back pain TECHNIQUE: 3 views of the lumbar spine were obtained. Comparison: None available at the time of this dictation. FINDINGS: IVC filter is seen. Right hip total arthroplasty is seen. Degenerative changes are seen in the lumbar spine with osteophyte formation and disc space narrowing. The alignment is normal. Vascular calcifications are noted. Prominent colonic gas is seen. IMPRESSION: Degenerative changes as above without acute fracture or subluxation. ACT 112: Negative or not required by law. Electronically signed by: Chandrakant Head M.D. 04/22/2023 3:20 PM Sacrum and Coccyx X-Ray 04/22/23 14:28 XR sacrum coccyx min 2V CLINICAL HISTORY: worsening back pain TECHNIQUE: 2 views of the sacrococcygeal spine were obtained. Comparison: None available at the time of this dictation. FINDINGS: No fractures or subluxations are identified. Alignment appears unremarkable. IMPRESSION: No evidence of acute fracture or subluxation. ACT 112: Negative or not required by law. Electronically signed by: Chandrakant Head M.D. 04/22/2023 3:21 PM Chest X-Ray 04/25/23 11:31 XR chest 1V portable HISTORY: chf, mitral stenosis, AVR COMPARISON: Chest 10/13/2015. FINDINGS: No pneumothorax. The heart remains enlarged. There are poststernotomy changes. Slight progression of the interstitial/vascular thickening consistent with pulmonary vascular congestion. There are trace bilateral pleural effusions and bibasilar densities. Prior cholecystectomy. IMPRESSION: 1. Cardiomegaly with mild pulmonary vascular congestion. This has slightly progressed. 2. Trace bilateral pleural effusions and patchy bibasilar densities. This may represent atelectasis. A superimposed pneumonia would be difficult to exclude but considered less likely. ACT 112: Negative or not required by law. Electronically signed by: Jose Roberto Peterson M.D. 04/25/2023 3:[address] 04/26/23 12:26 CT lumbar spine wo/w con HISTORY: 83 years-old Male Severe back pain with radiation Acute severe low back pain without reported trauma. COMPARISON: CT abdomen and pelvis 04/22/2023, CTA chest 04/21/2023. TECHNIQUE: Multiple axial CT images of the lumbar spine were obtained with and without the use of IV contrast. A dose lowering technique was used consistent with the principals of SABIHA. FINDINGS: Partially imaged right pleural effusion redemonstrated. Left renal cyst. IVC filter. Multiple nonspecific prevertebral edema at L1. Additionally, there is mild endplate irregularity anteriorly at L1-L2 which is also likely degenerative related. There is transitional lumbosacral anatomy. For the purposes of this exam when compared to the prior CT studies listed above, the L5-S1 disc space is described on axial image 88 which demonstrates partial sacralization. Evaluation of the central canal and neural foramina by CT technique. No high-grade central canal stenosis. Moderate level neural foraminal narrowing, severe in the left at L4-L5. There is moderate degeneration of the SI joints which are partially fused. Severe multilevel facet arthrosis with advanced spondylotic spurring. There is mild and mild to moderate intervertebral disc space narrowing. Mild lumbar levoscoliosis. IMPRESSION: 1. No acute fracture or subluxation of the lumbar spine identified. 2. Multilevel degenerative changes as described above. 3. There is mild prevertebral edema again at L1 which is favored to be on a degenerative basis and is unchanged from prior. Developing discitis/osteomyelitis considered less likely. 5. Partially imaged right pleural effusion redemonstrated. ACT 112: Negative or not required by law. The above report was generated using voice recognition software. It may contain grammatical, syntax or spelling errors. Dictated: 04/26/2023 3:38 PM Transcribed: 04/26/2023 3:57 PM [place] [id number] Mateo [id number] Electronically signed by: Guy Padilla M.D. 04/26/2023 4:31 PM Pending Results Patient Have Any Pending Studies at Discharge: Yes Discharge Instructions Given to Patient (Per Discharging Provider) PLEASE MONITOR INR DAILY AND ADJUST COUMADIN ACCORDINGLY. Multiple thyroid nodules noted, thyroid ultrasound recommended, can be done as an outpatient after discharge. 8 mm left apex pulmonary nodule and 6 mm left lower lobe pulmonary nodule noted, follow-up CT scan in 3 months recommended. PLEASE REFER TO ACCOMPANYING HOSPITAL DISCHARGE SUMMARY FOR FULL DETAILS Total Time Total Time Spent Total Time Spent (In Minutes): >30 minutes
== END 2023-05-04 16:01 | DRG 291 ==
LOC: ED 04:54 → SUATTDRO 10:31 → EDINP 10:31 → 4W 12:22

== ENCOUNTER 2023-05-20 05:26 | Inpatient (IN) ==
--- OUTSIDE RECORDS SUMMARY | 2023-05-20 05:31 | External Medical Summary | Summary of Care ---
Author Name Unknown Organization [facility] Address [address] [place] [address] Phone [phone] Care Team Providers Care Pan Dumper Name Role Phone Sourav Verde MD Primary Care Provider + Reason for Visit * Reason Onset Date Comments Order Request 05/14/2023 Encounter Details Date Type Department Care Team (Late st Contact Info) Description 05/14/2023 Telephone General Internal Medicine [facility] [address] [facility] [place] [address] Sourav Verde MD 200 [facility] [place] [address] Order Request Allergies Active Allergy Reactions Criticality Noted Date Comments Niacin Er Flushing,Itching 03/29/2010 documented as of this encounter (statuses as of 05/14/2023) Medications Medication Sig Dispensed Refills Start Date [...] before bedtime. 0 12/23/2020 Active Polymyxin B-Trimethoprim 72444-0.1 UNIT/ML-% Ophthalmic Solution (Polytrim) Instill 2 Drops into the right eye in the morning and 2 Drops before bedtime. 0 11/30/2020 Active Levemir 100 UNIT/ML Subcutaneous Solution (insulin Detemir)Indication s:Type 2 diabetes mellitus with hemoglobin A1c goal of less than 7.0% ([facility]) INJECT 84 UNITS UNDER SKIN [...] with hemoglobin A1c goal of 7.0%-8.0% ([facility]) TAKE 1 TABLET BY MOUTH [...] A1c goal of less than 7.0% ([facility]) INJECT 15 UNITS SUBCUTANEOUSLY WITH BREAKFAST 15 [...] as of this encounter (statuses as of 05/14/2023) Active Problems Problem Noted Date Diagnosed Date [...] Taxonomy. Pernicious anemia 08/03/2008 CORONARY ATHEROSCLER. [place] CORONARY VESSEL 08/28/2006 S/P AORTIC VALVE REPLACEMENT-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 1 08/04/2002 Overview: ICD-10 update of inactive term Anticoagulation management encounter 12/18/2001 CHR ISCHEMIC HRT DIS NOS 01/22/2001 GENERAL OSTEOARTHROSIS 01/22/2001 SBE (subacute bacterial endocarditis) prophylaxi s candidate documented as of this encounter (statuses as of 05/14/2023) Resolved Problems Problem Noted Date Diagnosed Date [...] as of this encounter (statuses as of 05/14/2023) Immunizations Name Administration Dates Next Due Influenza, [...] encounter Miscellaneous Notes * Telephone Encounter - Master Johnson LPN - 05/14/2023 3:14 PM EST Spencer informed and voiced understanding. * Telephone Encounter - Sourav Verde MD - 05/14/2023 2:55 PM EST Ok for pt, don't sleep in a recliner. * Telephone Encounter - Master Johnson LPN - 05/14/2023 2:32 PM EST Spencer, a PT from [facility], saw Kieran for in home PT today and would like to continue inhome PT with Kieran for strength and balance. He is requesting a verbal order, and his cell number is listed below. Spencer also stated, Kieran said that he has been having more back pain over the past few days, but not as severe as when he went to the hospital. He also told Spencer that he took tylenol for it and it did help. Spencer also mentioned that Kieran did sleep in his recliner the past few days and suspects that may be causing some of his problems. documented in this encounter Plan of Treatment Upcoming Encounters Date Type Department Care Team (Late st Contact Info) Description 05/17/2023 11:20 AM EST Office Visit General Internal Medicine [facility] [address] [place] [address] Sourav Verde MD [address] [facility] [place] [address] 05/17/2023 5:10 PM EST Anticoagulation Pharmacy, [facility] [address] [place] [address] [address] Pharmacist1, [facility] [address] [facility] [place] [address] 06/22/2023 1:30 PM EST Office Visit Cardiology, [facility] [address] [place] [address] Tho Park MD 132 [facility] [place] [address] 10/03/2023 10:40 AM EDT Office Visit General Internal Medicine [facility] [address] [place] [address] Sourav Verde MD [address] [facility] [place] [address] Health Maintenance Due Date Last Done Comments [...] 12/15/2019, Additional history exists Albumin/Creatinine Ratio 09/22/2023 04 023, 09/01/2021, 08/18/2020, Additional history exists CKD PHOS USE SMARTSET 37609 09/22/2023 04/0 11/2022, 09/01/2021, 08/18/2020, Additional history exists GFR 09/26/2023 03/27/2023, 03/2 , 04/10/2022, Additional history exists HbA1c 09/26/2023 03/27/2023, 04/0 11/2022, 03/10/2022, Additional history exists Diabetic Eye Exam 01/17/2024 01/16/2023, , 09/04/2022, Additional history exists CKD HGB USE SMARTSET 30488 03/27/202403/27, 11/09/2022, 11/09/2022, Additional history exists Depression [...] filedocumented as of this encounter Care Teams Pan Dumper Relationship Specialty Start Date End Date Sourav Verde MD [address] [place] [address] PCP - General Internal Medicine 02/28/21 documented as of this encounter
--- OUTSIDE RECORDS SUMMARY | 2023-05-20 05:31 | External Medical Summary | Summary of Care ---
Author Name Unknown Organization [facility] Address [address] [place] [address] Phone [phone] Care Team Providers Care Laser Technician Name Role Phone Sourav Verde MD Primary Care Provider + Reason for Visit * Reason Comments Dosage Adjustment Via Phone (anticoag Cl inic) Encounter Details Date Type Department Care Team (Latest Contact Info) Description 05/17/2023 5:10 PM EST Anticoagulation Pharmacy, [facility] [address] [place] [address] Pharmacist1, [facility] 200 [place] [address] S/P AORTIC VALVE REPLACEMENT-[place]* Allergies Active Allergy Reactions Criticality Noted Date Comments Niacin Er Flushing,Itching 03/29/2010 documented as of this encounter (statuses as of 05/17/2023) Medications Medication Sig Dispensed Refills Start Date [...] before bedtime. 0 12/23/2020 Active Polymyxin B-Trimethoprim 68330-1.1 UNIT/ML-% Ophthalmic Solution (Polytrim) Instill 2 Drops into the right eye in the morning and 2 Drops before bedtime. 0 11/30/2020 Active Levemir 100 UNIT/ML Subcutaneous Solution (insulin Detemir)Indication s:Type 2 diabetes mellitus with hemoglobin A1c goal of less than 7.0% ([facility]) INJECT 84 UNITS UNDER SKIN BEFORE [...] PER WEEK 120 Tablet 3 10/25/2022 Active metFORMIN HCl 1000 MG Oral Tablet (Glucophage)Indica tions:Type 2 diabetes mellitus with hemoglobin A1c goal of 7.0%-8.0% ([facility]) TAKE 1 TABLET BY MOUTH IN THE MORNING AND BEFORE BEDTIME 180 Tablet 1 10/25/2022 Active Sotalol HCl 120 MG Oral TabletIndications: Chronic atrial fibrillation (HCC) TAKE 1 TABLET BY MOUTH TWICE A DAY 180 Tablet 1 10/25/2022 Active Metoprolol [...] A WEEK 40 Tablet 3 03/13/2023 Active Allopurinol 100 MG Oral Tablet (Zyloprim)Indicati ons:Gout TAKE 2 TABLETS BY MOUTH EVERY DAY 180 Tablet 1 05/14/2023 Active Terazosin HCl 2 MG Oral CapsuleIndications :HTN, goal below 140/80,Mitral stenosis TAKE 1 CAPSULE BY MOUTH EVERY DAY 90 Capsule 1 05/14/2023 Active documented as of this encounter (statuses as of 05/17/2023) Active Problems Problem Noted Date Diagnosed Date Pulmonary HTN 03/27/2023 Central retinal vein occlusion of right eye 050 07/2021 Chronic diastolic congestive heart failure 09/01 [...] Taxonomy. Pernicious anemia 08/03/2008 CORONARY ATHEROSCLER. OF [place] CORONARY VESSEL 08/28/2006 S/P AORTIC VALVE REPLACEMENT-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 prison current use of anticoagulant therapy 1 08/04/2002 Overview: ICD-10 update of inactive term Anticoagulation management encounter 12/18/2001 CHR ISCHEMIC HRT DIS NOS 01/22/2001 GENERAL OSTEOARTHROSIS 01/22/2001 SBE (subacute bacterial endocarditis) prophylaxi s candidate documented as of this encounter (statuses as of 05/17/2023) Resolved Problems Problem Noted Date Diagnosed Date [...] as of this encounter (statuses as of 05/17/2023) Immunizations Name Administration Dates Next Due Influenza, [...] money to buy more. Never true 09/08/19 Within the past 12 months, t he [...] of this encounter Progress Notes * Perico Wright RPh - 05/17/2023 8:17 AM EST Patient Phone Numbers [facility] [phone] Spoke to [facility] and Kieran is no longer admitted there. Coag will see him before he sees PCP today. Perico Mancini RPh, CACP, CDE Clinical Pharmacist [facility] 05/17/2023, 8:23 AM documented in this encounter Plan of Treatment Upcoming Encounters Date Type Department Care Team (Late st Contact Info) Description 05/17/2023 11:10 AM EST Anticoagulation Pharmacy, [facility] [address] [place] [address] Pharmacist1, [facility] [address] [place] [address] 05/17/2023 11:20 AM EST Office Visit General Internal Medicine [facility] [address] [place] [address] Sourav Verde MD [address] [place] [address] 06/22/2023 1:30 PM EST Office Visit Cardiology, [facility] [address] [place] [address] Tho Park MD [address] [place] [address] 10/03/2023 10:40 AM EDT Office Visit General Internal Medicine [address] [place] [place] [address] [facility] [place] [address] Sourav Verde MD 200 [facility] [place], [place] [address] Health Maintenance Due Date Last Done Comments [...] Additional history exists CKD PHOS USE SMARTSET 12985 09/22/2023 04/0 11/2022, 09/01/2021, 08/18/2020, Additional history exists GFR 09/26/2023 03/27/2023, 03/2 , 04/10/2022, Additional history exists HbA1c 09/26/2023 03/27/2023, 04/0 11/2022, 03/10/2022, Additional history exists Diabetic Eye Exam 01/17/2024 01/16/2023, , 09/04/2022, Additional history exists CKD HGB USE SMARTSET 66978 03/27/202403/27, 11/09/2022, 11/09/2022, Additional history exists Depression [...] of this encounter Visit Diagnoses Diagnosis S/P AORTIC VALVE REPLACEMENT-[place]- Primary Heart valve replaced by other means documented in this encounter Care Teams Laser Technician Relationship Specialty Start Date End Date Sourav Verde MD 200 [facility] [place] [address] PCP - General Internal Medicine 02/28/21 documented as of this encounter
--- OUTSIDE RECORDS SUMMARY | 2023-05-20 05:31 | External Medical Summary | Summary of Care ---
Author Name Unknown Organization [facility] Address [address] [place] [address] Phone [phone] Care Team Providers Care Parliamentary Archivist Name Role Phone Sourav Verde MD Primary Care Provider + Reason for Visit * Reason Onset Date Comments Order Request 05/14/2023 Encounter Details Date Type Department Care Team (Late st Contact Info) Description 05/14/2023 Telephone General Internal Medicine [facility] [address] [facility] [place] [address] Sourav Verde MD 200 [place] [address] Order Request Allergies Active Allergy Reactions Criticality [...] before bedtime. 0 12/23/2020 Active Polymyxin B-Trimethoprim 62412-1.1 UNIT/ML-% Ophthalmic Solution (Polytrim) Instill 2 Drops into the right eye in the morning and 2 Drops before bedtime. 0 11/30/2020 Active Levemir 100 UNIT/ML Subcutaneous Solution (insulin Detemir)Indication s:Type 2 diabetes mellitus with hemoglobin A1c goal of less than 7.0% ([facility]) INJECT 84 UNITS UNDER SKIN [...] hemoglobin A1c goal of 7.0%-8.0% ([facility]) TAKE 1 TABLET BY MOUTH [...] of less than 7.0% ([facility]) INJECT 15 UNITS SUBCUTANEOUSLY WITH [...] Taxonomy. Pernicious anemia 08/03/2008 CORONARY ATHEROSCLER. OF [place] CORONARY VESSEL 08/28/2006 S/P AORTIC VALVE REPLACEMENT-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 * Telephone Encounter - Master Johnson LPN - 05/14/2023 2:32 PM EST Spencer, a PT from [facility], saw Kieran for in [...] AM EST Office Visit General Internal Medicine [facility] [address] [place], [place] [address] Sourav Verde MD [address] [facility] [place], [place] [address] 05/17/2023 5:10 PM EST Anticoagulation Pharmacy, [facility] [address] [place] [address] [address] Pharmacist1, [facility] [address] [place], [place] [address] 06/22/2023 1:30 PM EST Office Visit Cardiology, [facility] [address] [facility] [place] [address] Tho Park MD 132 [place] [address] 10/03/2023 10:40 AM EDT Office Visit General Internal Medicine [facility] [address] [place], [place] [address] Sourav Verde MD [address] [facility] [place], [place] [address] Health Maintenance Due Date Last Done Comments [...] Additional history exists CKD PHOS USE SMARTSET 67990 09/22/2023 04/0 11/2022, 09/01/2021, 08/18/2020, Additional history exists GFR 09/26/2023 03/27/2023, 03/2 , 04/10/2022, Additional history exists HbA1c 09/26/2023 03/27/2023, 04/0 11/2022, 03/10/2022, Additional history exists Diabetic Eye Exam 01/17/2024 01/16/2023, , 09/04/2022, Additional history exists CKD HGB USE SMARTSET 84462 03/27/202403/27, 11/09/2022, 11/09/2022, Additional history exists Depression [...] filedocumented as of this encounter Care Teams Parliamentary Archivist Relationship Specialty Start Date End Date Sourav Verde MD [address] [place] [address] PCP - General Internal Medicine 02/28/21 documented as of this encounter
--- OUTSIDE RECORDS SUMMARY | 2023-05-20 05:31 | External Medical Summary ---
Author Name Unknown Address Unknown Organization K09:[facility] [address] Laboratory Report Ordering Provider Test Date Status DAVID DELANEY 05/17/2023 11:59:58 Final Observation Date Value Abnormality Reference (Units ) Status SYNC LEUKOCYTES IN BLOOD BY AUTOMATED COUNT 05/17/2023 11:59:58 5.72 4.00-10.80 (K/uL) Final Segs 05/17/2023 11:59:58 65.4 40.0-75.0 (%) Final Lymphs % 05/17/2023 11:59:58 20.1 18.0-42.0 (%) Final Monos 05/17/2023 11:59:58 12.8 Above high normal 1.0-11.0 (%) Final Eosinophils 05/17/2023 11:59:58 1.2 0.0-6.0 (%) Final Basos 05/17/2023 11:59:58 0.5 0.0-2.0 (%) Final Absolute Segs 05/17/2023 11:59:58 3.74 1.80-7.70 (K/uL) Final Lymphs, absolute 05/17/2023 11:59:58 1.15 1.00-4.80 (K/ul) Final Monos, Abs 05/17/2023 11:59:58 0.73 0.00-1.10 (K/uL) Final Eos, Abs 05/17/2023 11:59:58 0.07 0.00-0.70 (K/uL) Final Basos, Abs 05/17/2023 11:59:58 0.03 0.00-0.20 (K/uL) Final Performing Location [facility] [address]
--- OUTSIDE RECORDS SUMMARY | 2023-05-20 05:31 | External Medical Summary | Summary of Care ---
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 [facility] Comments Is Patient homebound? Yes All sections of this form must be filled out completely. Forms with missing or illegible information will be returned for completion. This form should not be modified in any way. Forms that have been modified will be returned. This form may not be submitted by a home health agency. It must be complete and submitted by the ordering provider. One full business day lead time is required and service will be scheduled based on the next service day for the [facility]lebot[facility] does not service every geographical location on a daily basis. Contact [facility] Client Services at to find out service days for a specific location. Medical Laboratory [facility] [place] Patient Name: Kieran Rojas : 1940 Sex: male Address [address] [place] [address] Provider: Sourav Verde MD? Sourav Verde MD? Diagnosis: Z95.2 S/P AORTIC VALVE REPLACEMENT-[place] (primary encounter diagnosis) Z95.2 S/P aortic valve replacement Z51.81,Z79.01 Anticoagulation management encounter Z79.01 group home current use of anticoagulant therapy Tests Requested PT/INR - bi-weekly starting May 24, 2023 Reason for Visit * Reason Comments Dosage Adjustment In Person (Anticoag Cl inic) Encounter Details Date Type Department Care Team (Latest Contact Info) Description 05/17/2023 11:10 AM EST Anticoagulation Pharmacy, [facility] 200 [facility] [place] [address] Pharmacist1, [facility] 200 [facility] [place] [address] S/P AORTIC VALVE REPLACEMENT-[place]*; S/P aortic valve replacement; Anticoagulation management encounter; group home current use of anticoagulant therapy Allergies Active Allergy Reactions Criticality Noted Date [...] before bedtime. 0 12/23/2020 Active Polymyxin B-Trimethoprim 91499-5.1 UNIT/ML-% Ophthalmic Solution (Polytrim) Instill 2 Drops into the right eye in the morning and 2 Drops before bedtime. 0 11/30/2020 Active Levemir 100 UNIT/ML Subcutaneous Solution (insulin Detemir)Indication s:Type 2 diabetes mellitus with hemoglobin A1c goal of less than 7.0% ([facility]) INJECT 84 UNITS UNDER SKIN [...] hemoglobin A1c goal of 7.0%-8.0% ([facility]) TAKE 1 TABLET BY MOUTH [...] than 7.0% ([facility]) Use to test blood glucose twice a day E11.9 200 Strip 3 03/06/2023 Active Insulin Aspart 100 UNIT/ML Injection Solution (NovoLOG)Indicatio ns:Type 2 diabetes mellitus with hemoglobin A1c goal of less than 7.0% ([facility]) INJECT 15 UNITS SUBCUTANEOUSLY WITH BREAKFAST [...] of basal cell carcinoma of skin 02/29/20 21 Type 2 diabetes mellitus wit h stage [...] Taxonomy. Pernicious anemia 08/03/2008 CORONARY ATHEROSCLER. OF [place] CORONARY VESSEL 08/28/2006 S/P AORTIC VALVE REPLACEMENT-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 group home current use of anticoagulant therapy 1 08/04/2002 [...] Notes * Perico Wright RPh - 05/17/2023 10:57 AM EST Images from the original note were not included. Medication Therapy Disease Management - Anticoagulation Kieran Rojas 1940 Description Vitamin K 2.5mg 03/26 His INR was elevated at [facility] and warfarin held for a time. He was discharged home on 4mg daily starting 05/12. Patient Findings Positives: Signs/symptoms of bleeding (He had a catheter in at [facility] and had clots in his urine.) Negatives: Signs/symptoms of thrombosis, Change in health, Change in alcohol use, Change in activity, Upcoming invasive procedure, Missed doses, Extra doses, Change in medications, Change in diet/appetite, Bruising INR Result As of 05/17/2023 INR goal: 2.5-3.0 INR used for dosin.9 (05/17/2023) Warfarin Plan As of 05/17/2023 Full warfarin instructions: 05/17: Hold; Otherwise 4 mg, then 2 mg repeating every 2 days Next INR check: 05/24/2023 Repeat PT/INR in 1 week(s) Weekly dose: decreased Perico Mancini RPh, CACP, CDE Clinical Pharmacist [facility] Management [facility] 05/17/2023 11:06 AM documented in this encounter Plan of Treatment Upcoming Encounters Date Type Department Care Team (Latest Contact Info) Description 05/17/2023 5:10 PM EST Anticoagulation Pharmacy, [facility] [address] [place] [address] Pharmacist1, [facility] [address] [place] [address] S/P AORTIC VALVE REPLACEMENT-[place]* 05/24/2023 5:30 PM EST Anticoagulation Pharmacy, [facility] 200 [facility] [place] [address] Pharmacist1, [facility] [address] [facility] [place] [address] 06/22/2023 1:30 PM EST Office Visit Cardiology, [facility] [address] [place] [address] Tho Park MD [address] [place] [address] 10/03/2023 10:40 AM EDT Office Visit General Internal Medicine [facility] 200 [facility] [place] [address] Sourav Verde MD 200 [facility] [place] [address] Scheduled Referrals Name Type Priority Associated Diagnoses Orde r Schedule HOME PHLEBOTOMY REFERRAL OP Referral Within 3 days (urgent) S/P AORTIC VALVE REPLACEMENT-[place] S/P aortic valve replacement Anticoagulation management encounter group home current use of anticoagulant therapy Ordered: 05/17/2023 Health Maintenance Due Date Last Done Comments [...] 11/01/2020, 12/15/2019, Additional history exists Albumin/Creatinine Ratio 09/22/202309/21/ 023, 09/01/2021, 08/18/2020, Additional history exists CKD PHOS USE SMARTSET 31262 09/22/20230 11/2022, 09/01/2021, 08/18/2020, Additional history exists GFR 09/26/2023 03/27/2023, 03/2 , 04/10/2022, Additional history exists HbA1c 09/26/2023 03/27/2023, 04/0 11/2022, 03/10/2022, Additional history exists Diabetic Eye Exam 01/17/2024 01/16/2023, , 09/04/2022, Additional history exists CKD HGB USE SMARTSET 22584 03/27/202403/27, 11/09/2022, 11/09/2022, Additional history exists Depression [...] Comments INR FINGERSTICK, POINT OF CARE STAT 05/17/2023 11:00 AM EST S/P aortic valve replacement 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 documented in this encounter Results * INR FINGERSTICK, POINT OF CARE (05/17/2023 11:00 AM EST) Fingerstick INR 3.9 INR 11:01 AM EST [facility] [employer] 56-02 Blood 05/17/2023 11:0 0 AM EST 05/17/2023 11:01 AM EST Narrative [facility] 56-02 - 05/17/2023 11:01 AM EST Therapeutic ranges for non-operative patients: Prophylaxsis/treatment of DVT: (Range:2.0-3.0) Treatment of pulmonary embolism:(Range:2.0-3.0) Prevention of systemic embolism from: -tissue heart valves -acute myocardial infarction -valvular heart disease -atrial fibrillation (Range: 2.0-3.0) Mechanical prosthetic valves: (Range: 2.5-3.5) Perico Mancini V RP LAB POINT OF CARE TE ST DOCKED DEVICE UNSOLICITED RESULTS [facility] 56-02 [address] [place] [address] documented in this encounter Visit Diagnoses Diagnosis S/P AORTIC VALVE REPLACEMENT-[place]- Primary Heart valve replaced by other means S/P aortic valve replacement- Primary Heart valve replaced by other means S/P AORTIC VALVE REPLACEMENT[place] Heart valve replaced by other means Anticoagulation management encounter Encounter for therapeutic drug monitoring group home current use of anticoagulant therapy documented in this encounter Care Teams Cash Management Coordinator Relationship Specialty Start Date End Date Sourav Verde MD [address] [place] [address] PCP - General Internal Medicine 02/28/21 documented as of this encounter
--- OUTSIDE RECORDS SUMMARY | 2023-05-20 05:31 | External Medical Summary ---
Author Name Unknown Address Unknown Organization [id number]:[facility] [place] [address] Laboratory Report Ordering Provider Test Date Status TRUMAN LIGHT V 05/17/2023 11:00:16 Final Therapeutic ranges for non-o perative patients:
Prophylaxsis/treatment of DVT: (Range:2.0-3.0)
Treatment of pulmonary embolism:(Range:2.0-3.0)
Prevention of systemic embolism from:
-tissue heart valves
-acute myocardial infarction
-valvular heart disease
-atrial fibrillation
(Range: 2.0-3.0)
Mechanical prosthetic valves: (Range: 2.5-3.5) Observation Date Value Abnormality Reference (Units ) Status INR in Capillary blood by Coagulation assay 05/17/2023 11:00:16 3.9 (INR) Final Performing Location [facility] [place] [address]
--- OUTSIDE RECORDS SUMMARY | 2023-05-20 05:31 | External Medical Summary ---
Author Name Unknown Address Unknown Organization [id number]:[facility] [place] [address] [place] [address] Laboratory Report Ordering Provider Test Date Status DAVID DELANEY 05/17/2023 11:59:58 Final Observation Date Value Abnormality Reference (Units ) Status Ferritin 05/17/2023 11:59:58 122 30-400 (ng /mL) Final Performing Location [facility] - [address] [place] [address]
--- OUTSIDE RECORDS SUMMARY | 2023-05-20 05:31 | External Medical Summary | Summary of Care ---
Author Name Unknown Organization [facility] Address [address] [place] [address] Phone [phone] Care Team Providers Care Functional Skills Tutor Name Role Phone Sourav Verde MD Primary Care Provider + Reason for Referral * Precert (Within 10 days (routine)) - Pending Review Specialty Diagnoses / Procedures Referred By Contac t Referred To Contact Radiology Diagnoses Lung nodules Procedures CT CHEST WO CONTRAST Sourav Verde MD [address] [place] [address] Referral ID Status Reason Start Date Expiration Date V isits Requested Visits Authorized [id number] Pending Review 08/16/2023 999 999 * (Within 10 days (routine)) - Pending Review Specialty Diagnoses / Procedures Referred By Contac t Referred To Contact Radiology Diagnoses Thyroid nodule Procedures US HEAD AND NECK Sourav Verde MD [address] [place] [address] Referral ID Status Reason Start Date Expiration Date V isits Requested Visits Authorized [id number] Pending Review 05/17/2023 999 999 Reason for Visit * Reason Onset Date Comments Hospital Follow-Up Hospital foll ow up from [facility] admitted on 04/21/23 and d/c 05/04/23, due to CHF. Patient states he was d/c to [facility] after the hospital and stayed there for 8 days, was d/c from their facility on 05/12/23. Patient states he is doing okay since being home, working on building his strength. Hospital Follow-Up 05/17/2023 Encounter Details Date Type Department Care Team (Latest Contact Info) Description 05/17/2023 11:20 AM EST Office Visit General Internal Medicine [facility] [address] [facility] [place] [address] Sourav Verde MD [address] [facility] [place] [address] Hospital discharge follow-up*; Acute on chronic diastolic (congestive) heart failure (HCC); Paroxysmal atrial fibrillation (HCC); Acute right-sided low back pain without sciatica; Acute urinary tract infection; Type 2 diabetes mellitus with hemoglobin A1c goal of less than 7.0% (HCC); Type 2 diabetes mellitus with stage 3a chronic kidney disease, with long-term current use of insulin (HCC); Elevated LFTs; Thyroid nodule; Lung nodules; Nonrheumatic mitral valve stenosis; Moderate mitral regurgitation Allergies Active Allergy Reactions Criticality Noted Date Comments Niacin Er Flushing,Itching 03/29/2010 documented as of this encounter (statuses as of 05/17/2023) Medications Medication Sig Dispensed Refills Start Date End Date Status NITROGLYCERIN 0.4 MG SL SUBLIndications: Chronic ischemic heart disease one tab under tongue as needed for chest pain maximum 3 dose 25 5 9 Active Additional Information Patient not taking.Reported on 05/17/2023 ONE TOUCH ULTRASOFT LANCETS MISC Check glucose [...] 180 days 1 Each 1 9 Active Additional Information Patient not taking.Reported on 05/17/2023 Rocklatan 0.02-0.005 % Ophthalmic Solution (Netarsudil-Deena noprost) Instill 2 Drops into the left eye daily. 0 Active Brimonidine Tartrate 0.15 % Ophthalmic Solution (Alphagan P) Instill 1 Drop into the left eye in the morning and 1 Drop at noon and 1 Drop before bedtime. 0 1 Active Levemir 100 UNIT/ML Subcutaneous Solution (insulin Detemir)Indicati ons:Type 2 diabetes mellitus with hemoglobin A1c goal of less than 7.0% ([facility]) INJECT 84 UNITS UNDER SKIN BEFORE BED 70 mL 5 2 Active Furosemide 40 MG Oral Tablet (Lasix)Indicatio ns:Edema, unspecified TAKE ONE DAILY AND ADDITIONAL ONE 2 DAYS PER WEEK 120 Tablet 3 3 Active metFORMIN HCl 1000 MG Oral Tablet (Glucophage)Kathy cations:Type 2 diabetes mellitus with hemoglobin A1c goal of 7.0%-8.0% (HCC) TAKE 1 TABLET BY MOUTH IN THE MORNING AND BEFORE BEDTIME 180 Tablet 1 3 Active Insulin Syringe-Needle U-100 30G X 1/2" 1 ML (BD Insulin Syringe U/F) Use with insulin 4 times a day 400 Each 3 3 Active OneTouch Ultra In Vitro Strip (Glucose Blood)Indication s:Type 2 diabetes mellitus with hemoglobin A1c goal of less than 7.0% ([facility]) Use to test blood glucose twice a day E11.9 200 Strip 3 3 Active Insulin Aspart 100 UNIT/ML Injection Solution (NovoLOG)Indicat ions:Type 2 diabetes mellitus with hemoglobin A1c goal of less than 7.0% ([facility]) INJECT 15 UNITS SUBCUTANEOUSLY WITH BREAKFAST 15 UNITS WITH LUNCH AND 20 UNITS WITH SUPPER DAILY 40 mL 1 3 Active Aspirin 81 MG Oral Tablet Chewable (Aspirin Low Dose)Indications :Chronic ischemic heart disease,S/P aortic valve replacement,Paro xysmal atrial fibrillation (HCC) TAKE 1 TABLET 3 TIMES A WEEK 40 Tablet 3 3 Active Allopurinol 100 MG Oral Tablet (Zyloprim)Indica tions:Gout TAKE 2 TABLETS BY MOUTH EVERY DAY 180 Tablet 1 3 Active Terazosin HCl 2 MG Oral CapsuleIndicatio ns:HTN, goal below 140/80,Mitral stenosis TAKE 1 CAPSULE BY MOUTH EVERY DAY 90 Capsule 1 3 Active Metoprolol Succinate ER 100 MG Oral Tablet Extended Release 24 Hour (toPROL XL) Take 1 Tablet by mouth in the morning and 1 Tablet before bedtime. 0 Active Warfarin Sodium 4 MG Oral Tablet (Coumadin) Take 1 Tablet by mouth in the morning. Take 0.5 tablets on Sun, , Sun Hold Take 1 tablet Sun, Sun, Sun. 0 3 Active Polymyxin B-Trimethoprim 59910-1.1 UNIT/ML-% Ophthalmic Solution (Polytrim) Instill 2 Drops into the right eye in the morning and 2 Drops before bedtime. 0 1 05/17/20 23 Discontinued Warfarin Sodium 7.5 MG Oral Tablet (Coumadin)Indica tions:Venous thrombosis,Antic oagulation management encounter Take 0.5 Tablets by mouth every evening. Or as directed by [facility] 45 Tablet 3 3 05/17/20 23 Discontinued Sotalol HCl 120 MG Oral TabletIndication s:Chronic atrial fibrillation (HCC) TAKE 1 TABLET BY MOUTH TWICE A DAY 180 Tablet 1 3 05/17/20 23 Discontinued Metoprolol Succinate ER 25 MG Oral Tablet Extended Release 24 Hour (toPROL XL)Indications:A ortocoronary bypass status,S/P aortic valve replacement TAKE 1 TABLET BY MOUTH TWICE A DAY 180 Tablet 1 3 05/17/20 23 Discontinued Ezetimibe-Simvas tatin 10-40 MG Oral TabletIndication s:Dyslipidemia, goal LDL below 70 TAKE 1 TABLET BY MOUTH EVERY DAY 90 Tablet 1 3 05/17/20 23 Discontinued documented as of this encounter (statuses as of 05/17/2023) Active Problems Problem Noted Date Diagnosed Date Moderate mitral regurgitation 05/17/2023 Pulmonary HTN 03/27/2023 Central retinal vein occlusion [...] REPLACEMENT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 jail current use of anticoagulant therapy 1 08/04/2002 [...] Sign Reading Time Taken Comments Blood Pressure 100/50 05/17/2023 11:50 AM EST Pulse 84 05/17/2023 11:33 AM EST Temperature 36.2 C (97.2 F) 05/17/2023 11:[address] Respiratory Rate - - Oxygen Saturation 98% 05/17/2023 11:33 AM EST Inhaled Oxygen Concentration - - Weight 92.3 kg (203 lb 8 oz) 05/17/2023 11:33 AM EST Height 180.3 cm (5' 11") 05/17/2023 11:33 AM EST Body Mass Index 28.38 05/17/2023 11:33 AM EST documented in this encounter Progress Notes * Sourav Verde MD - 05/17/2023 11:41 AM EST Chief Complaint Patient presents with Hospital Follow-Up Hospital follow up from [facility] admitted on 04/21/23 and d/c 05/04/23, due to CHF. Patient states he was d/c to [facility] after the hospital and stayed there for 8 days, was d/c from their facility on 05/12/23. Patient states he is doing okay since being home, working on building his strength. Hospital Follow-Up SUBJECTIVE: Kieran Rojas is a 83 year old male with PMH as below who presents for hospital follow up. He went to [facility] ER on 04/21/23, for acute atraumatic right back pain, severe. He was found to be hypoxic, soband fluid overloaded. Also trouble urinating. He was admitted, given lasix, larry placed and metoprolol increased as had increase atrial fib hr. He slowly improved, back pain resolved w/o intervention and using pain med. Larry removed (had hematuria when inr >7, but this resolved with flushing and larry removed w/o issue) and med adjusted, sent to [facility] for rehab where he was until 05/12/23. Back home now. Getting stronger, doing home pt. No cp, sob, bay. Weight stable, and sugars controlled. Urinating fine. No syncope. Has cardiology f/u 06/22/22. 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 Z95.2 Aortocoronary bypass status Z95.1 CORONARY ATHEROSCLER. OF [place] CORONARY VESSEL I25.10 Pernicious anemia D51.0 DYSLIPIDEMIA, GOAL LDL BELOW 70 E78.5 Type 2 diabetes mellitus with hemoglobin A1c goal of less than 7.0% (HCC) E11.9 Mitral valve stenosis I05.0 Gout M10.9 PETER inhibitor nephrotoxicity N14.19, T46.4X5A HTN, goal below 140/90 I10 Current use of insulin (HCC) Z79.4 Paroxysmal atrial fibrillation (HCC) I48.0 Type 2 diabetes mellitus with stage 3a chronic kidney disease, with long-term current use of insulin (HCC) E11.22, N18.31, Z79.4 Obesity, Class I, BMI 30.0-34.9 (see actual BMI) E66.9 Primary open angle glaucoma (POAG) of both eyes H40.1130 History of basal cell carcinoma of skin Z85.828 Chronic diastolic congestive heart failure (HCC) I50.32 Central retinal vein occlusion of right eye H34.8112 Pulmonary HTN ([facility]) I27.20 Current Outpatient Medications Medication Sig Dispense Refill ONE TOUCH ULTRASOFT LANCETS MISC Check glucose two times a day Dx 250.00 100 Each 5 dorzolamide-timolol (COSOPT OCUMETER PLUS) 2.23-0.68% ophthalmic solution 2 ONETOUCH ULTRASOFT LANCETS MISC CHECK GLUCOSE TWO TIMES A DAY DX E11.29 300 Each 1 Bromfenac Sodium 0.07 % Ophthalmic Solution One drop daily in left eye Rocklatan 0.02-0.005 % Ophthalmic Solution (Netarsudil-Latanoprost) Instill 2 Drops into the left eye daily. Brimonidine Tartrate 0.15 % Ophthalmic Solution (Alphagan P) Instill 1 Drop into the left eye in the morning and 1 Drop at noon and 1 Drop before bedtime. Levemir 100 UNIT/ML Subcutaneous Solution (insulin Detemir) INJECT 84 UNITS UNDER SKIN BEFORE BED 70 mL 5 Furosemide 40 MG Oral Tablet (Lasix) TAKE ONE DAILY AND ADDITIONAL ONE 2 DAYS PER WEEK 120 Tablet 3 metFORMIN HCl 1000 MG Oral Tablet (Glucophage) TAKE 1 TABLET BY MOUTH IN THE MORNING AND BEFORE BEDTIME 180 Tablet 1 Insulin Syringe-Needle U-100 30G X 1/2" 1 ML (BD Insulin Syringe U/F) Use with insulin 4 times a day 400 Each 3 OneTouch Ultra In Vitro Strip (Glucose Blood) Use to test blood glucose twice a day E11.9 200 Strip3 Insulin Aspart 100 UNIT/ML Injection Solution (NovoLOG) INJECT 15 UNITS SUBCUTANEOUSLY WITH BREAKFAST 15 UNITS WITH LUNCH AND 20 UNITS WITH SUPPER DAILY 40 mL 1 Aspirin 81 MG Oral Tablet Chewable (Aspirin Low Dose) TAKE 1 TABLET 3 TIMES A WEEK 40 Tablet 3 Allopurinol 100 MG Oral Tablet (Zyloprim) TAKE 2 TABLETS BY MOUTH EVERY DAY 180 Tablet 1 Terazosin HCl 2 MG Oral Capsule TAKE 1 CAPSULE BY MOUTH EVERY DAY 90 Capsule 1 Metoprolol Succinate ER 100 MG Oral Tablet Extended Release 24 Hour (toPROL XL) Take 1 Tablet by mouth in the morning and 1 Tablet before bedtime. Warfarin Sodium 4 MG Oral Tablet (Coumadin) Take 1 Tablet by mouth in the morning. Take 0.5 tabletson Sun, , Sun Hold Take 1 tablet Mon, Wed, Sat. NITROGLYCERIN 0.4 MG SL SUBL one tab under tongue as needed for chest pain maximum 3 dose (Patient not taking: Reported on 05/17/2023) 25 5 zoster vac recomb adjuvanted (SHINGRIX) 50 MCG/0.5ML injection Inject 0.5 mL into a large muscle now and repeat dose in 60 to 180 days (Patient not taking: Reported on 05/17/2023) 1 Each 1 No current facility-administered medications for this visit. Review of patient's allergies indicates: Allergen Reactions Niaspan [Niacin Er] Flushing and Itching Health Maintenance Due Topic Date Due DXA Scan Never done COVID-19 Vaccine (1) Never done Hepatitis B (1 of 3 - Risk 3-dose series) Never done Zoster Vaccines (2 of 3) 08/17/2011 DTaP,Tdap,and Td Vaccines (2 - Td or Tdap) 09/30/2022 Influenza Vaccine (FLU shot) (1) 02/16/2023 Diabetic Foot Exam 03/10/2023 ROS: CONSTITUTIONAL: No fevers, sweats, or chills PULMONARY: No cough, sputum, or hemoptysis and No rales CARDIOVASCULAR: No chest pain, No orthopnea, No paroxysmal nocturnal dyspnea, No palpitations, and No syncope GASTROINTESTINAL: No abdominal pain, No change in bowel habits, No significant heartburn, No significant change in appetite, No nausea, vomiting, diarrhea, or constipation, No hematemesis, No blood in stools or black tarry stools, No abdominal bloating or early satiety, and No dysphagia ALL OTHER SYSTEMS NEGATIVE I reviewed social, PMH, PSH, and family history and updated where needed. Social History Socioeconomic History Marital status: Spouse name: Not on file Number of children: Not on file Years of education: Not on file Highest education level: Not on file Occupational History Not on file Tobacco Use Smoking status: Former Types: Cigarettes Quit date: 06/18/1969 Years since quittin.9 Smokeless tobacco: Never Substance and Sexual Activity Alcohol use: No Drug use: No Sexual activity: Not on file Other Topics Concern Not on file Social History Narrative Not on file Social Determinants of Health Financial Resource Strain: Not on file Food Insecurity: No Food Insecurity (09/07/2022) Hunger Vital Sign Worried About Running Out of Food in the Last Year: Never true Ran Out of Food in the Last Year: Never true Transportation Needs: Not on file Physical Activity: Not on file Stress: Not on file Social Connections: Not on file Intimate Partner Violence: Not on file Housing Stability: Not on file Past Medical History: Diagnosis Date Aortic valve stenosis Central retinal vein occlusion of right eye 10/17/2021 Coronary atherosclerosis of [place] coronary artery DM type 2, goal A1c below 7 01/29/2012 Dyslipidemia, goal LDL below 160 History of basal cell carcinoma of skin 02/28/2021 HTN, goal below 140/80 06/22/2011 Phlebitis and thrombophlebitis of other deep vessels of lower extremities Past Surgical History: Procedure Laterality Date EGD, FLEXIBLE, DIAGNOSTIC 10/14/2015 gastritis/inpt [facility] OTHER 1997 stent in heart/filter in chest PELVIS/HIP JOINT SURGERY NEC 2000 samantha/amalia REMOVE CATARACT, INSERT LENS PROSTH bilateral REMOVE GALLBLADDER 08/16/11 Dr. Rocha REPLACEMENT AORTIC VALVE, BYPASS WITH PROSTHETIC VALVE 06/2006 [facility],CABG x2 Family History Problem Relation Age of Onset Heart Disorder Mother Lung Disorder Father TB/Pneumonia No Past Hx None pt unaware of fam hx of melanoma, skin ca or other skin diseases OBJECTIVE: PHYSICAL EXAM: BP 100/50 | Pulse 84 | Temp 36.2 C (97.2 F) | Ht 1.803 m (5' 11") | Wt 92.3 kg (203 lb 8 oz) | SpO2 98% | BMI 28.38 kg/m | BSA 2.15 m General: alert, healthy, and no distress Head: Normocephalic, No masses, lesions, tenderness or abnormalities Eye Exam: conjunctiva are pink and non-injected, sclera clear Heart: no murmur, no gallops, irregularly irregular, S-1 normal, and S-2 normal Lungs: normal respiratory rate and rhythm, lungs clear to auscultation Abdomen: abdomen soft, non-tender, and obese Extremities: no clubbing, no cyanosis, trace edema Psych: normal affect, no flight of ideas or tangential thought, good eye contact, no pressured speech D/C Summary: Plan per Dr. Olivares's notes with addendum: Patient came in with low back pain, was found to be hypoxic at 78% on room air in ED. CTA chest wasdone which showed pulmonary edema and is concerning for questionable small blood clot. He is being managed for the following: Acute on chronic diastolic heart failure Patient hypoxic on room air, requiring 3 L oxygen on admission CT chest with pulmonary edema. BNP 621. Echo with EF 60-65%, LVH, RV elevation/overload, dilated atria, mod-severe mitral stenosis, mild-mod mitral regurg and mod tricuspid regurg. Cardiology consult-appreciate recs -given IV Lasix -started metoprolol succ 100mg BID for atrial fibrillation diuresed well, transitioned to usual Lasix 40mg daily and added Spironolactone 12.5mg po daily monitor volume status closely and check BMP regularly Hematuria UTI-probable Enterococcus species Likely secondary to trauma due to fall-complicated by Coumadin Larry cath placed during admission for output monitoring coumadin held Urologist consulted Irrigation performed, hematuria resolved Hemoglobin stable Larry catheter removed, patient voiding well Started Macrobid twice daily, will need 10-day course, will need 9 more days resume coumadin tomorrow if urine continues to be clear Low back pain CT scan of the lumbar spine with and without contrast did not show any evidence of acute disc problem but has osteoarthritic changes resolved with pain medications Glaucoma Eye medications have been updated Atrial Fibrillation On metoprolol succinate, dose increased to 100mg BID Usually on coumadin, held for elevated INR- Admitting INR of 6.5 INR went up to 7.2 today, received one dose of IV Vit K 2.5mg Per patient, he takes Coumadin half of 7.5 mg tablet every day except and Sunday. restart coumadin 3mg po daily tomorrow if urine remains clear monitor INR daily Abnormal CTA chest: Concern for a blood clot D-dimer elevated at 940 US venous Doppler BLE- no noted DVT though limited by edema Patient does have history of IVC filter placed about 20 years ago per patient. INR currently supratherapeutic at 5.3, holding coumadin at this time. Doubt any pulmonary embolism given the INR was supratherapeutic on admission and required vitamin K Thyroid nodules Multiple thyroid nodules noted, thyroid ultrasound recommended, can be done as an outpatient after discharge. 8 mm left apex pulmonary nodule and 6 mm left lower lobe pulmonary nodule noted, follow-up CT scan in 3 months recommended. DMII hemoglobin a1c of 7.2 resume usual medication Other chronic medical conditions: continue other home meds Diet: DMII, HH, Low sodium DVT prophylaxis: Patient is supratherapeutic INR. Full code Disposition discharge to [facility] ASSESSMENT: Z09 Hospital discharge follow-up (primary encounter diagnosis) I50.33 Acute on chronic diastolic (congestive) heart failure (HCC) I48.0 Paroxysmal atrial fibrillation (HCC) M54.50 Acute right-sided low back pain without sciatica N39.0 Acute urinary tract infection E11.9 Type 2 diabetes mellitus with hemoglobin A1c goal of less than 7.0% (HCC) E11.22,N18.31,Z79.4 Type 2 diabetes mellitus with stage 3a chronic kidney disease, with long-term current use of insulin (HCC) R79.89 Elevated LFTs E04.1 Thyroid nodule R91.8 Lung nodules I34.2 Nonrheumatic mitral valve stenosis I34.0 Moderate mitral regurgitation PLAN: Hospital discharge follow-up (Primary) - DISCH MED RECON CUR MED LIS Acute on chronic diastolic (congestive) heart failure (HCC) Better now, perhaps from diet, infection, pain Cont furosemide Wouldn't add aldactone given weight loss and bp today Check labs Paroxysmal atrial fibrillation (HCC) Cont metoprolol Cont coumadin F/u cardiology Acute right-sided low back pain without sciatica Resolved, perhaps from fluid gain Acute urinary tract infection Resolved Type 2 diabetes mellitus with hemoglobin A1c goal of less than 7.0% (HCC) Controlled Cont home insulin, metformin Type 2 diabetes mellitus with stage 3a chronic kidney disease, with long-term current use of insulin (HCC) As above Elevated LFTs - COMPREHENSIVE METABOLIC PANEL; Future; Expected date: 05/17/2023 - CBC WITH WBC DIFFERENTIAL; Future; Expected date: 05/17/2023 At [facility], request recheck Thyroid nodule - US HEAD AND NECK; Future; Expected date: 05/17/2023 Lung nodules - CT CHEST WO CONTRAST; Future; Expected date: 08/16/2023 Nonrheumatic mitral valve stenosis F/u cardiology Moderate mitral regurgitation F/u cardiology Follow Up: Return if symptoms worsen or fail to improve and as scheduled., for Labs Today. | For: Labs Today documented in this encounter Nursing Notes * Gregorio Park CMA - 05/17/2023 11:26 AM EST Chief Complaint Patient presents with Hospital Follow-Up Hospital follow up from [facility] admitted on 04/21/23 and d/c 05/04/23, due to CHF. Patient states he was d/c to [facility] after the hospital and stayed there for 8 days, was d/c from their facility on 05/12/23. Patient states he is doing okay since being home, working on building his strength. documented in this encounter Plan of Treatment Upcoming Encounters Date Type Department Care Team (Latest Contact Info) Description 05/17/2023 5:10 PM EST Anticoagulation Pharmacy, [facility] [address] [facility] [place] [address] Pharmacist1, [facility] [address] [place] [address] S/P AORTIC VALVE REPLACEMENT[facility]* 05/24/2023 5:30 PM EST Anticoagulation Pharmacy, [facility] [address] [facility] [place] [address] Pharmacist1, [facility] [address] [place] [address] 05/28/2023 10:45 AM EST Imaging Radiology [facility] [address] [facility] [place] [address] 06/22/2023 1:30 PM EST Office Visit Cardiology, [facility] [address] [facility] [place] [address] Tho Park MD [address] [place] [address] 08/16/2023 10:00 AM EST Imaging Radiology [facility] [address] [place] [address] 10/03/2023 10:40 AM EDT Office Visit General Internal Medicine [facility] [address] [place] [address] Sourav Verde MD [address] [facility] [place] [address] Pending Results Name Type Priority Associated Diagnoses Date /Time COMPREHENSIVE METABOLIC PANEL Lab Routine Elevated LFTs 05/17/2023 11:59 AM EST Scheduled Orders Name Type Priority Associated Diagnoses Orde r Schedule COMPREHENSIVE METABOLIC PANEL Lab Routine Elevated LFTs Expected: 05/17/2023 (Approximate), Expires: 05/16/2024 US HEAD AND NECK Medical Imaging Routine Thyroid nodule Expected: 05/17/2023, Expires: 06/16/2024 CT CHEST WO CONTRAST Medical Imaging Routine Lung nodules Expected: 08/16/2023, Expires: 06/16/2024 Health Maintenance Due Date Last Done Comments [...] Additional history exists CKD PHOS USE SMARTSET 27046 09/22/2023 04/0 11/2022, 09/01/2021, 08/18/2020, Additional history exists GFR 09/26/2023 03/27/2023, 03/2 , 04/10/2022, Additional history exists HbA1c 09/26/2023 03/27/2023, 04/0 11/2022, 03/10/2022, Additional history exists Diabetic Eye Exam 01/17/2024 01/16/2023, , 09/04/2022, Additional history exists Depression Screening 03/27/2024 03/27/2023 CKD HGB USE SMARTSET [id number] 05/17/202405/17, 05/17/2023, 03/27/2023, Additional history exists Pneumococcal Vaccine: 65+ Years [...] Primary Heart valve replaced by other means Hospital discharge follow-up- Primary Other follow-up examination Acute on chronic diastolic (congestive) heart failure (HCC) Paroxysmal atrial fibrillation (HCC) Atrial fibrillation Acute right-sided low back pain without sciatica Acute urinary tract infection Urinary tract infection, site not specified Type 2 diabetes mellitus with hemoglobin A1c goal of less than 7.0% (HCC) Type 2 diabetes mellitus with stage 3a chronic kidney disease, with long-term current use of insulin (HCC) Elevated LFTs Other abnormal blood chemistry Thyroid nodule Nontoxic uninodular goiter Lung nodules Other nonspecific abnormal finding of lung field Nonrheumatic mitral valve stenosis Moderate mitral regurgitation Mitral valve disorders documented in this encounter Care Teams Functional Skills Tutor Relationship Specialty Start Date End Date Sourav Verde MD [address] [place] [address] PCP - General Internal Medicine 02/28/21 documented as of this encounter
--- OUTSIDE RECORDS SUMMARY | 2023-05-20 05:31 | External Medical Summary | Summary of Care ---
Author Name Unknown Organization [facility] Address [address] [place] [address] Phone [phone] Care Team Providers Care Editor City Name Role Phone Sourav Hernandez MD Primary Care Provider + Reason for Visit * Reason Comments eRx-Medication Refill Encounter Details Date Type Department Care Team (Late st Contact Info) Description 05/14/2023 Refill General Internal Medicine [facility] [address] [place] [address] Sourav Hernandez MD 200 [place] [address] Gout; HTN, goal below 140/80; Mitral stenosis Allergies Active Allergy Reactions Criticality Noted Date [...] before bedtime. 0 1 Active Polymyxin B-Trimethoprim 80993-5.1 UNIT/ML-% Ophthalmic Solution (Polytrim) Instill 2 Drops into the right eye in the morning and 2 Drops before bedtime. 0 1 Active Levemir 100 UNIT/ML Subcutaneous Solution (insulin Detemir)Indicati ons:Type 2 diabetes mellitus with hemoglobin A1c goal of less than 7.0% ([facility]) INJECT 84 UNITS UNDER SKIN [...] hemoglobin A1c goal of 7.0%-8.0% ([facility]) TAKE 1 TABLET BY MOUTH IN THE MORNING AND BEFORE BEDTIME 180 Tablet 1 3 Active Sotalol HCl 120 MG Oral TabletIndication s:Chronic atrial fibrillation (HCC) TAKE 1 TABLET BY MOUTH TWICE A DAY 180 Tablet 1 3 Active Metoprolol [...] goal of less than 7.0% ([facility]) Use to test blood glucose twice a day E11.9 200 Strip 3 3 Active Insulin Aspart 100 UNIT/ML Injection Solution (NovoLOG)Indicat ions:Type 2 diabetes mellitus with hemoglobin A1c goal of less than 7.0% ([facility]) INJECT 15 UNITS SUBCUTANEOUSLY WITH [...] EVERY DAY 90 Capsule 1 3 Active Terazosin HCl 2 MG Oral CapsuleIndicatio ns:HTN, goal below 140/80,Mitral stenosis TAKE 1 CAPSULE BY MOUTH EVERY DAY 90 Capsule 1 3 05/14/20 23 Discontinued Allopurinol 100 MG Oral Tablet (Zyloprim)Indica tions:Gout TAKE 2 TABLETS BY MOUTH EVERY DAY 180 Tablet 1 3 05/14/20 23 Discontinued documented as of this encounter [...] encounter Miscellaneous Notes * Telephone Encounter - Bruce Hawkins RPh - 05/14/2023 5:25 PM ESTSigned Prescriptions: Disp Refills Allopurinol 100 MG Oral Tablet (Zyloprim) 180 Ta*1 Sig: TAKE 2 TABLETS BY MOUTH EVERY DAYAuthorizing Provider: SOURAV HERNANDEZ User: LOIS HAWKINS Terazosin HCl 2 MG Oral Capsule 90 Cap*1 Sig: TAKE 1 CAPSULE BY MOUTH EVERY DAYAuthorizing Provider: SOURAV HERNANDEZ User: BRUCE HAWKINS documented in this encounter Plan of Treatment Upcoming Encounters Date Type Department Care Team (Late st Contact Info) Description 05/17/2023 11:20 AM EST Office Visit General Internal Medicine [facility] [address] [place], [place] [address] Sourav Hernandez MD 200 [facility] [address] [place], [place] [address] 05/17/2023 5:10 PM EST Anticoagulation Pharmacy, [facility] [place] [address] [place] [address] Pharmacist1, [facility] [address] [place], [place] [address] 06/22/2023 1:30 PM EST Office Visit Cardiology, [facility] [address] [facility] [place] [address] Tho Park MD [address] [place] [address] 10/03/2023 10:40 AM EDT Office Visit General Internal Medicine [facility] [place] [address] Sourav Hernandez MD 200 [facility] [address] [place], [place] [address] Health Maintenance Due Date Last Done Comments [...] 12/15/2019, Additional history exists Albumin/Creatinine Ratio 09/22/2023 04/2 023, 09/01/2021, 08/18/2020, Additional history exists CKD PHOS USE SMARTSET 12865 09/22/2023 04/0 11/2022, 09/01/2021, 08/18/2020, Additional history exists GFR 09/26/2023 03/27/2023, 03/2 , 04/10/2022, Additional history exists HbA1c 09/26/2023 03/27/2023, 04/0 11/2022, 03/10/2022, Additional history exists Diabetic Eye Exam 01/17/2024 01/16/2023, , 09/04/2022, Additional history exists CKD HGB USE SMARTSET 51599 03/27/202403/27, 11/09/2022, 11/09/2022, Additional history exists Depression [...] as of this encounter Visit Diagnoses Diagnosis Gout Gout, unspecified HTN, goal below 140/80 Unspecified essential hypertension Mitral stenosis documented in this encounter Care Teams Editor City Relationship Specialty Start Date End Date Sourav Hernandez MD [address] [place] [address] PCP - General Internal Medicine 02/28/21 documented as of this encounter
--- OUTSIDE RECORDS SUMMARY | 2023-05-20 05:31 | External Medical Summary ---
Author Name Unknown Address Unknown Organization [id number]:[facility] [address] [place] [address] Laboratory Report Ordering Provider Test Date Status DAIVD DELANEY 05/17/2023 11:59:58 Final Observation Date Value Abnormality Reference (Units ) Status BUN 05/17/2023 11:59:58 38 Above high normal 6-20 (mg/dL) Final Creatinine 05/17/2023 11:59:58 1.3 Above high normal 0.6-1.2 (mg/dL) Final Glomerular filtration rate/1.73 sq M.predicted [Volume Rate/Area] in Serum, Plasma or Blood by Creatinine-based formula (CKD-EPI) 05/17/2023 11:59:58 55 Below low normal >=60 (mL/min) Final eGFR is calculated based on the CKD-EPI 2020 equation SODIUM 05/17/2023 11:59:58 141 135-146 (m mol/L) Final Potassium 05/17/2023 11:59:58 4.1 3.5-5.1 (m mol/L) Final Cl 05/17/2023 11:59:58 106 98-107 (mm ol/L) Final CO2 05/17/2023 11:59:58 24 22-32 (mmo l/L) Final Anion gap 05/17/2023 11:59:58 11 7-15 (mmol /L) Final Glucose 05/17/2023 11:59:58 109 70-120 (mg /dL) Final Albumin 05/17/2023 11:59:58 3.4 Below low normal 3.8 -5.0 (g/dL) Final AST (Aspartate aminotransferase) 05/17/2023 11:59:58 26 10-50 (U/L) Fin al Alk Phos 05/17/2023 11:59:58 171 Above high normal 35 -130 (U/L) Final Bilirubin, Total 05/17/2023 11:59:58 0.4 <=1 .2 (mg/dL) Final Calcium 05/17/2023 11:59:58 9.5 8.4-10.2 ( mg/dL) Final Protein 05/17/2023 11:59:58 6.8 6.0-8.3 (g /dL) Final ALT (Alanine aminotransferase) 05/17/2023 11:59:58 35 10-50 (U/L) Benji fontenot Performing Location [facility] [place] [address]
--- OUTSIDE RECORDS SUMMARY | 2023-05-20 05:31 | External Medical Summary | Summary of Care ---
Author Name Unknown Organization [facility] Address [address] [place] [address] Phone [phone] Care Team Providers Care Emanations Analysis Technician Name Role Phone Sourav Verde MD Primary Care Provider + Reason for Visit * Reason Onset Date Comments Order Request 05/14/2023 Encounter Details Date Type Department Care Team (Late st Contact Info) Description 05/14/2023 Telephone General Internal Medicine [facility] 200 [place] [address] Sourav Verde MD 200 [place] [address] Order Request Allergies Active Allergy Reactions Criticality [...] before bedtime. 0 12/23/2020 Active Polymyxin B-Trimethoprim 97624-1.1 UNIT/ML-% Ophthalmic Solution (Polytrim) Instill 2 Drops into the right eye in the morning and 2 Drops before bedtime. 0 11/30/2020 Active Levemir 100 UNIT/ML Subcutaneous Solution (insulin Detemir)Indication s:Type 2 diabetes mellitus with hemoglobin A1c goal of less than 7.0% ([facility]) INJECT 84 UNITS UNDER SKIN BEFORE BED [...] hemoglobin A1c goal of 7.0%-8.0% ([facility]) TAKE 1 TABLET BY MOUTH IN THE [...] of less than 7.0% ([facility]) INJECT 15 UNITS SUBCUTANEOUSLY WITH BREAKFAST 15 [...] Taxonomy. Pernicious anemia 08/03/2008 CORONARY ATHEROSCLER. OF [place] CORONARY VESSEL 08/28/2006 S/P AORTIC VALVE REPLACEMENT-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 [place], [place] [address] 05/17/2023 5:10 PM EST Anticoagulation Pharmacy, [facility] [address] [place] [address] Pharmacist1, [facility] [address] [place], [place] [address] 06/22/2023 1:30 PM EST Office Visit Cardiology, [facility] [address] [place] [address] Tho Park MD 132 [place] [address] 10/03/2023 10:40 AM EDT Office Visit General Internal Medicine [facility] [address] [place], [place] [address] Sourav Verde MD 200 [facility] [place], [place] [address] Health Maintenance Due Date Last Done Comments [...] Additional history exists CKD PHOS USE SMARTSET 35589 09/22/2023 04/0 11/2022, 09/01/2021, 08/18/2020, Additional history exists GFR 09/26/2023 03/27/2023, 03/2 , 04/10/2022, Additional history exists HbA1c 09/26/2023 03/27/2023, 04/0 11/2022, 03/10/2022, Additional history exists Diabetic Eye Exam 01/17/2024 01/16/2023, , 09/04/2022, Additional history exists CKD HGB USE SMARTSET 77896 03/27/202403/27, 11/09/2022, 11/09/2022, Additional history exists Depression [...] filedocumented as of this encounter Care Teams Emanations Analysis Technician Relationship Specialty Start Date End Date Sourav Verde MD [address] [place] [address] PCP - General Internal Medicine 02/28/21 documented as of this encounter
--- OUTSIDE RECORDS SUMMARY | 2023-05-20 05:31 | External Medical Summary ---
Author Name Unknown Address Unknown Organization [id number]:LABORATORY [facility] - [address] [place] [address] Laboratory Report Ordering Provider Test Date Status DAVID DELANEY 05/17/2023 11:59:58 Final Observation Date Value Abnormality Reference (Units ) Status Iron 05/17/2023 11:59:58 27 Below low normal 45-176 (ug/dL) Final Iron-binding capacity 05/17/2023 11:59:58 277 250-425 (ug/dL) Final Transferrin Sat % 05/17/2023 11:59:58 10 Below low normal 15-55 (%) Final Performing Location LAB[facility]ATORY [facility] - [address] [place] [address]
--- OUTSIDE RECORDS SUMMARY | 2023-05-20 05:31 | External Medical Summary | Summary of Care ---
Author Name Unknown Organization [facility] Address [address] [place] [address] Phone [phone] Care Team Providers Care Hydrotel Operator Name Role Phone Sourav Verde MD Primary Care Provider + Reason for Visit * Reason Comments Outpatient Testing Encounter Details Date Type Department Care Team (Late st Contact Info) Description 05/17/2023 12:00 PM EST Laboratory Laboratory [facility] [address] [place] [address] [facility] 200 [facility] [place] [address] Decreased hemoglobin; Elevated LFTs Allergies Active Allergy Reactions Criticality Noted Date Comments Niacin Er Flushing,Itching 03/29/2010 documented as of this encounter (statuses as of 05/17/2023) Medications Medication Sig Dispensed Refills Start Date End Date Status NITROGLYCERIN 0.4 MG SL SUBLIndications:Ch ronic ischemic heart disease one tab under tongue as needed for chest pain maximum 3 dose 25 5 07/20/2008 Active Additional Information Patient not taking.Reported on [...] 180 days 1 Each 1 06/13/2019 Active Additional Information Patient not taking.Reported on 05/17/2023 Rocklatan 0.02-0.005 % Ophthalmic Solution (Netarsudil-Latano prost) Instill 2 Drops into the left eye daily. 0 Active Brimonidine Tartrate 0.15 % Ophthalmic Solution (Alphagan P) Instill 1 Drop into the left eye in the morning and 1 Drop at noon and 1 Drop before bedtime. 0 12/23/2020 Active Levemir 100 UNIT/ML Subcutaneous Solution (insulin Detemir)Indication s:Type 2 diabetes mellitus with hemoglobin A1c goal of less than 7.0% ([facility]) INJECT 84 UNITS UNDER SKIN BEFORE BED 70 mL 5 05/28/2022 Active Furosemide 40 MG Oral Tablet (Lasix)Indications :Edema, unspecified TAKE ONE DAILY AND ADDITIONAL ONE 2 DAYS PER WEEK 120 Tablet 3 10/25/2022 Active metFORMIN HCl 1000 MG Oral Tablet (Glucophage)Indica tions:Type 2 diabetes mellitus with hemoglobin A1c goal of 7.0%-8.0% (HCC) TAKE 1 TABLET BY MOUTH IN THE MORNING AND BEFORE BEDTIME 180 Tablet 1 10/25/2022 Active Insulin Syringe-Needle U-100 30G X 1/2" 1 ML (BD Insulin Syringe U/F) Use with insulin 4 times a day 400 Each 3 03/06/2023 Active OneTouch Ultra In Vitro Strip (Glucose Blood)Indications: Type 2 diabetes mellitus with hemoglobin A1c goal of less than 7.0% ([facility]) Use to test blood glucose twice a day E11.9 200 Strip 3 03/06/2023 Active Insulin Aspart 100 UNIT/ML Injection Solution (NovoLOG)Indicatio ns:Type 2 diabetes mellitus with hemoglobin A1c goal of less than 7.0% ([facility]) INJECT 15 UNITS SUBCUTANEOUSLY WITH BREAKFAST 15 UNITS WITH LUNCH AND 20 UNITS WITH SUPPER DAILY 40 mL 1 03/14/2023 Active Aspirin 81 MG Oral [...] EVERY DAY 90 Capsule 1 05/14/2023 Active Metoprolol Succinate ER 100 MG Oral Tablet Extended Release 24 Hour (toPROL XL) Take 1 Tablet by mouth in the morning and 1 Tablet before bedtime. 0 Active Warfarin Sodium 4 MG Oral Tablet (Coumadin) Take 1 Tablet by mouth in the morning. Take 0.5 tablets on Sun, , Sun Hold Take 1 tablet Sun, Sun, Sat. 0 05/14/2023 Active documented as of this encounter [...] Taxonomy. Pernicious anemia 08/03/2008 CORONARY ATHEROSCLER. OF [place] CORONARY VESSEL 08/28/2006 S/P AORTIC VALVE REPLACEMENT-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 project facilitator current use of anticoagulant therapy 1 08/04/2002 [...] Description 05/17/2023 5:10 PM EST Anticoagulation Pharmacy, [facility] 200 [facility] [place] [address] Pharmacist1, [facility] 200 [facility] [place] [address] S/P AORTIC VALVE REPLACEMENT-[facility]* 05/24/2023 5:30 PM EST Anticoagulation Pharmacy, [facility] 200 [facility] [place] [address] Pharmacist1, [facility] 200 [facility] [place] [address] 05/28/2023 10:45 AM EST Imaging Radiology [facility] [place] [address] 06/22/2023 1:30 PM EST Office Visit Cardiology, [facility] 132 [facility] [place] [address] Tho Park MD [facility] [place] [address] 08/16/2023 10:00 AM EST Imaging Radiology [address] 132 [facility] [place] [address] 10/03/2023 10:40 AM EDT Office Visit General Internal Medicine [facility] [address] [place] [address] Sourav Verde MD 200 [facility] [place] [address] Pending Results Name Type Priority Associated Diagnoses Date /Time FERRITIN Lab Routine Decreased hemoglobin 05/17/2023 11:59 AM EST IRON SCREEN, INCLUDING TIBC Lab Routine Decreased hemoglobin 05/17/2023 11:59 AM EST COMPREHENSIVE METABOLIC PANEL Lab Routine Elevated LFTs 05/17/2023 11:59 AM EST Health Maintenance Due Date Last Done Comments [...] Additional history exists CKD PHOS USE SMARTSET 22445 09/22/2023 04/0 11/2022, 09/01/2021, 08/18/2020, Additional history exists GFR 09/26/2023 03/27/2023, 03/2 , 04/10/2022, Additional history exists HbA1c 09/26/2023 03/27/2023, 04/0 11/2022, 03/10/2022, Additional history exists Diabetic Eye Exam 01/17/2024 01/16/2023, , 09/04/2022, Additional history exists Depression Screening 03/27/2024 03/27/2023 CKD HGB USE SMARTSET 05684 05/17/202405/17, 05/17/2023, 03/27/2023, Additional history exists Pneumococcal [...] Procedure Name Priority Date/Time Associated Diagnosis Comments DIFFERENTIAL, AUTOMATED Routine 05/17/2023 11:59 AM EST Decreased hemoglobin CBC Routine 05/17/2023 11:59 AM EST Decreased hemoglobin CBC Routine 05/17/2023 11:59 AM EST Decreased hemoglobin documented in this encounter Results * (ABNORMAL) DIFFERENTIAL, AUTOMATED (05/17/2023 11:59 AM EST) WBC 5.72 4.00 - 10.80 K/uL 05/17/2023 12:07 PM EST [facility] 56-02 Neutrophils % 65.4 40.0 - 75.0 % 05/17/2023 12:07 PM EST [facility] [place] 56-02 Lymphocytes % 20.1 18.0 - 42.0 % 05/17/2023 12:07 PM EST [facility] [place] 56-02 Monocytes % 12.8(H) 1.0 - 11.0 % 05/17/2023 12:07 PM EST [facility] 56-02 Eosinophils % 1.2 0.0 - 6.0 % 05/17/2023 12:07 PM EST [facility] 56-02 Basophils % 0.5 0.0 - 2.0 % 05/17/2023 12:07 PM EST [facility]ORY [facility] 56-02 Absolute Neutrophils 3.74 1.80 - 7.70 K/uL 05/17/2023 12:07 PM EST [facility] 56-02 Absolute Lymphocytes 1.15 1.00 - 4.80 K/ul 05/17/2023 12:07 PM EST [facility] [place] 56-02 Absolute Monocytes 0.73 0.00 - 1.10 K/uL 05/17/2023 12:07 PM EST [facility]ORY [facility] 56-02 Absolute Eosinophils 0.07 0.00 - 0.70 K/uL 05/17/2023 12:07 PM EST [facility] 56-02 Absolute Basophils 0.03 0.00 - 0.20 K/uL 05/17/2023 12:07 PM EST [facility] [place] 56-02 Blood Venous blood specimen / Unknown Venipuncture / Unknown 05/17/2023 11:59 AM EST 05/17/2023 11:59 AM EST Sourav Verde MD LAB BLOOD ORDERA BLES [facility] 56 [address] [place], [place] [id number] * (ABNORMAL) CBC (05/17/2023 11:59 AM EST) WBC 5.72 4.00 - 10.80 K/uL 05/17/2023 12:07 PM EST [facility] 56- RBC 3.61 4.50 - 5.25 M/uL 05/17/2023 12:07 PM EST [address] HGB 10.0(L) 14.0 - 16.8 g/dL 05/17/2023 12:07 PM EST [facility] 56 HCT 33.3(L) 40.0 - 48.4 % 05/17/2023 12:07 PM EST [facility] 56 MCV 92.2 82.0 - 99.5 fL 05/17/2023 12:07 PM EST [address] MCH 27.7 27.0 - 34.0 pg 05/17/2023 12:07 PM EST [address] MCHC 30.0 32.0 - 36.0 g/dL 05/17/2023 12:07 PM EST [facility] 56 RDW 17.9 11.5 - 15.5 % 05/17/2023 12:07 PM EST [facility] 56 PLT 141 140 - 400 K/uL 05/17/2023 12:07 PM EST [facility] 56 MPV 10.4 6.6 - 11.1 fL 05/17/2023 12:07 PM [facility] 56 Blood Venous blood specimen / Unknown Venipuncture / Unknown 05/17/2023 11:59 AM EST 05/17/2023 11:59 AM EST Sourav Verde MD LAB BLOOD ORDERA BLES [facility] 56 [address] [place], [place] [id number] documented in this encounter Visit Diagnoses Diagnosis S/P AORTIC VALVE REPLACEMENT-[place]- Primary Heart valve replaced by other means Decreased hemoglobin Anemia, unspecified Elevated LFTs Other abnormal blood chemistry documented in this encounter Care Teams Hydrotel Operator Relationship Specialty Start Date End Date Sourav Verde MD 200 [facility] [place], [place] [address] PCP - General Internal Medicine 02/28/21 documented as of this encounter
--- OUTSIDE RECORDS SUMMARY | 2023-05-20 05:31 | External Medical Summary ---
Author Name Unknown Address Unknown Organization K09:[facility] [place] [address] Laboratory Report Ordering Provider Test Date Status DAVID DELANEY 05/17/2023 11:59:58 Final Observation Date Value Abnormality Reference (Units ) Status WBC, Total 05/17/2023 11:59:58 5.72 4.00-10.8 0 (K/uL) Final RBC 05/17/2023 11:59:58 3.61 4.50-5.25 (M/uL) Final Hemoglobin 05/17/2023 11:59:58 10.0 Below low normal 14 .0-16.8 (g/dL) Final HCT 05/17/2023 11:59:58 33.3 Below low normal 40. 0-48.4 (%) Final MCV 05/17/2023 11:59:58 92.2 82.0-99.5 (fL) Final MCH 05/17/2023 11:59:58 27.7 27.0-34.0 (pg) Final MCHC 05/17/2023 11:59:58 30.0 32.0-36.0 (g/dL) Final RDW 05/17/2023 11:59:58 17.9 11.5-15.5 (%) Final Platelets 05/17/2023 11:59:58 141 140-400 (K /uL) Final MPV 05/17/2023 11:59:58 10.4 6.6-11.1 ( fL) Final Performing Location [facility] [place] [address]
--- OUTSIDE RECORDS SUMMARY | 2023-05-20 05:32 | External Medical Summary | Summary of Care ---
Author Name Unknown Organization [facility] Address [address] [address] Phone [phone] Care Team Providers Care Pot Tender Name Role Phone Sourav Verde MD Primary Care Provider + Reason for Visit * Reason Comments Dosage Adjustment Via Phone w/Visiting Shawn jin ([facility]) Dosage Adjustment Via Phone (anticoag Cl inic) Encounter Details Date Type Department Care Team (Latest Contact Info) Description 05/07/2023 5:10 PM EST Anticoagulation Pharmacy, [facility] [address] [facility] [place] [address] Pharmacist1, [facility] [address] [facility] [place] [address] S/P AORTIC VALVE REPLACEMENT[facility]* Allergies Active Allergy Reactions Criticality Noted Date Comments Niacin Er Flushing,Itching 03/29/2010 documented as of this encounter (statuses as of 05/07/2023) Medications Medication Sig Dispensed Refills Start Date [...] before bedtime. 0 12/23/2020 Active Polymyxin B-Trimethoprim 28662-7.1 UNIT/ML-% Ophthalmic Solution (Polytrim) Instill 2 Drops into the right eye in the morning and 2 Drops before bedtime. 0 11/30/2020 Active Levemir 100 UNIT/ML Subcutaneous Solution (insulin Detemir)Indication s:Type 2 diabetes mellitus with hemoglobin A1c goal of less than 7.0% ([facility]) INJECT 84 UNITS UNDER SKIN [...] mellitus with hemoglobin A1c goal of 7.0%-8.0% ([facility]) TAKE 1 TABLET BY MOUTH [...] hemoglobin A1c goal of less than 7.0% ([facility]) Use to test blood glucose twice a day E11.9 200 Strip 3 03/06/2023 Active Insulin Aspart 100 UNIT/ML Injection Solution (NovoLOG)Indicatio ns:Type 2 diabetes mellitus with hemoglobin A1c goal of less than 7.0% ([facility]) INJECT 15 UNITS SUBCUTANEOUSLY WITH [...] as of this encounter (statuses as of 05/07/2023) Active Problems Problem Noted Date Diagnosed Date [...] Taxonomy. Pernicious anemia 08/03/2008 CORONARY ATHEROSCLER. OF [place] CORONARY VESSEL 08/28/2006 S/P AORTIC VALVE REPLACEMENT-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 Richards will be monitoring his warfarin therapy while admitted. We will check for discharge/update in 10 days. Perico Mancini RPh, CACP, CDE Clinical Pharmacist [facility] 05/07/2023, 9:57 AM documented in this encounter Plan of Treatment Upcoming Encounters Date Type Department Care Team (Late st Contact Info) Description 05/17/2023 5:10 PM EST Anticoagulation Pharmacy, [facility] [address] [facility] [place] [address] Pharmacist1, [facility] [address] [facility] [place] [id number] 06/22/2023 1:30 PM EST Office Visit Cardiology, [facility] [address] [address] Tho Park MD [address] [place] [address] 10/03/2023 10:40 AM EDT Office Visit General Internal Medicine [facility] [address] [facility] [place] [address] Sourav Verde MD [address] [place] [address] Health Maintenance Due Date Last Done Comments [...] Additional history exists CKD PHOS USE SMARTSET 23110 09/22/2023 04/0 11/2022, 09/01/2021, 08/18/2020, Additional history exists GFR 09/26/2023 03/27/2023, 03/, 04/10/2022, Additional history exists HbA1c 09/26/2023 03/27/2023, 04/0 11/2022, 03/10/2022, Additional history exists Diabetic Eye Exam 01/17/2024 01/16/2023, , 09/04/2022, Additional history exists CKD HGB USE SMARTSET 62027 03/27/202403/27, 11/09/2022, 11/09/2022, Additional history exists Depression [...] means documented in this encounter Care Teams Pot Tender Relationship Specialty Start Date End Date Sourav Verde MD [address] [place] [address] PCP - General Internal Medicine 02/28/21 documented as of this encounter
[2023-05-20] MEDS ORDERED: fentaNYL citrate PF 100 MCG/2 ML VIAL ONE (05:42)
[2023-05-20 06:06] LABS: Basophils # (auto) 0.03 K/uL (0.00-0.20); Basophils % (auto) 0.6 %; Eosinophils # (auto) 0.12 K/uL (0.00-0.50); Eosinophils % (auto) 2.4 %; Hematocrit (blood only) 31.5 % (42.0-52.0); Hemoglobin 9.6 g/dl (14.0-18.0); Immature Granulocytes # (auto) 0.01 K/uL (0.01-0.20); Immature Granulocytes % (auto) 0.2 %; Lymphocytes % (auto) 21.9 %; Mean Corpuscular Hemoglobin 27.2 pg (25.0-34.0); Mean Corpuscular Hgb Conc 30.5 g/dL (32.0-36.0); Mean Corpuscular Volume 89.2 fL (80.0-100.0); Mean Platelet Volume 10.6 fL (9.4-12.4); Monocytes # (auto) 0.46 K/uL (0.11-0.59); Monocytes % (auto) 9.1 %; Neutrophils # (auto) 3.31 K/uL (1.40-6.50); Neutrophils % (auto) 65.8 %; Platelet Count 132 K/uL (130-400); RDW Coefficient of Variation 17.7 % (11.5-14.5); RDW Standard Deviation 57.1 fL (36.4-46.3); Red Blood Count 3.53 M/uL (4.70-6.10); White Blood Count 5.03 K/ul (4.8-10.8)
[2023-05-20 06:22] LABS: Albumin Level 3.3 gm/dl (3.4-5.0); BUN Creatinine Ratio 28.8 (10-20); Bilirubin,Total 0.8 mg/dl (0.2-1.0); Calcium 8.8 mg/dl (8.6-10.3); Est GFR (African American) 76.1 ml/min; Est GFR (Non-African American) 65.6 ml/min; Globulin 3.4 gm/dl (2.5-4.0); Potassium 3.8 mmol/L (3.5-5.1); Total Protein 6.7 gm/dl (6.0-8.3)
[2023-05-20] MEDS ORDERED: ONDANSETRON INJ 2 MG/ML 2 ML VIAL IV STA (06:37)
[2023-05-20] MEDS ORDERED: MoRPHine SULFATE 4 MG/ML 1 ML CARP\\VIAL IV STA ×2 (06:37→08:37)
--- NOTE | 2023-05-20 06:40 | Emergency Department Note ---
Impression & Plan Back pain, Anemia, Elevated INR ED Provider Note NAME: KRISTINE MALONE AGE: 83 SEX: M : 1940 ARRIVES VIA: Ambulance INFORMANT: Patient ED PROVIDER(S): Lopez Romero DO CHIEF COMPLAINT: back pain HPI: Patient is an 83-year-old male with a past medical history of aortic valve replacement, CAD, on Coumadin, A-fib, CABG who presents to the ER for back pain which started this morning around 1:30 AM. He denies any weakness or numbness in the legs. No numbness in the groin. Able to urinate move his bowels but he notes he cannot move due to the severe pain. He had this about a month ago and had a work-up and was discharged to rehab. He did get home and has been home for over a week and notes that now he cannot do anything secondary to the pain. Additional history is obtained from son who confirms the timeline at bedside ADDITIONAL HISTORY OBTAINED: Per HPI Chronic Medical/Social Conditions Affecting Care: Per HPI PAST MEDICAL HISTORY:See Below PAST SURGICAL HISTORY:See Below FAMILY HISTORY:See Below SOCIAL HISTORY:See Below HOME MEDICATIONS:See Below ALLERGIES:See Below VITALS:See Below PHYSICAL EXAMINATION: GENERAL: Lying in bed in moderate distress on nasal cannula EYE EXAM: normal conjunctiva. OROPHARYNX: no exudate, no erythema, lips, buccal mucosa, and tongue normal and mucous membranes are moist NECK: supple, no nuchal rigidity, no adenopathy, non-tender LUNGS: Clear to auscultation. Normal chest wall mechanics HEART: no murmurs, S1 normal and S2 normal ABDOMEN: abdomen soft, non-tender, normo-active bowel sounds, no masses, no rebound or guarding. BACK: Back is symmetrical on inspection and there is no deformity, midline tenderness in the lower lumbar region, no CVA tenderness. UPPER EXTREMITIES: upper extremities are grossly normal. LOWER EXTREMITIES: Flexion and extension of the hips, knees, ankles, and EHL 5/5 bilaterally. Gross sensation is intact. DPs are 2/4 bilateral. NEURO EXAM: Normal sensorium, cranial nerves II-XII grossly intact, normal speech, no gross weakness of arms, no gross weakness of legs. MEDICAL DECISION MAKING: Patient is an 83-year-old male who presents ER for the above-stated complaint. IV was established blood work is obtained. Additional history was obtained by son who was present at bedside. Labs show no significant leukocytosis and a mild anemia at 9.6 consistent with previous. INR was therapeutic at 3. BMP with LFTs bilirubin was unremarkable. UA was clean. Reproducible lower lumbar back pain. X-rays were unremarkable. Patient was updated bedside. Given multiple doses of narcotics. Was slightly hypoxic with this. Discussed case with the hospitalist Dr. Matos for further evaluation management and treatment. External Records Reviewed: Reviewed previous admission to the [facility] hospitalist in April for back pain and was discharged to rehab Consults/Care Managements Discussions: Per [facility] Triage Nursing notes reviewed. Limited review of prior medical records performed Vital Signs: reviewed and remarkable for no significant abnormalities Differential diagnosis: Differential diagnoses includes but is not limited to gastritis, peptic ulcer disease, GERD, gallbladder disease, pancreatitis, small bowel obstruction, appendicitis, diverticulitis, hernia, urinary tract infection, torsion, perforation, trauma, infectious. ER treatment provided: See below Diagnostics interpreted by me include EKG and cardiac monitoring as listed below: -Cardiac Monitoring: An order was placed for continuous cardiac monitoring. The monitor shows a rate of 80 with Afib rhythm. -ECG: none -Laboratory studies:Interpreted by me as stated above in MDM and shown below. Imaging studies: Xrays: As interpreted by me: X-rays of the lumbar spine per my read showed no acute fracture dislocation CTs show: none Procedures:none Critical Care: None Past Med/Surg History Medical History (Updated 05/20/23 @ 11:59 by Lopez Romero DO) Lumbago Social History Smoking Status: Never smoker Hx Alcohol Use: No Hx Substance Use: No Preferred Language: Tajik Communication Ability: Effective Manager Customer Required: No Beliefs That Will Affect Care: None Current Living Situation: Other Current Living Situation Comment: with son Feels Safe at Home: Yes Assistive Devices: Cane and Walker Allergies Allergies Allergy/AdvReac Type Severity Reaction Status Date / Time niacin Allergy Intermediate HIVES Verified 04/21/23 09:30 Home Meds Home Medications Medication Instructions Recorded Confirmed nitroglycerin 0.4 mg sublingual 0.4 mg sublingual PRN PRN Chest 12/09/09 05/20/23 tablet (Nitrostat) Pain ##0 terazosin 2 mg capsule 2 mg PO DAILY ##90 06/22/14 12/03/23 bismuth subsalicylate 525 mg/15 mL 525 mg PO DAILY PRN Diarrhea ##0 10/13/15 05/20/23 oral suspension travoprost 0.004 % eye drops 1 drp OPB HS #1 btl 10/13/15 05/20/23 allopurinol 100 mg tablet 200 mg PO Q2D 04/21/23 05/20/23 aspirin 81 mg chewable tablet 81 mg PO .SUN/SUN/Sun04/21/23 05/20/23 brimonidine 0.2 % eye drops 1 drp OPL BID 04/21/23 05/20/23 dorzolamide-timolol (PF) 2 %-0.5 % 1 drp OPL BID 04/21/23 05/20/23 eye drops in a dropperette ezetimibe 10 mg-simvastatin 40 mg 1 tab PO HS 04/21/23 05/20/23 tablet furosemide 40 mg tablet 40 mg PO QAM 04/21/23 05/20/23 insulin aspart U-100 100 unit/mL See Rx Instructions .Route .COMPLEX 04/21/23 05/20/23 subcutaneous solution (Novolog U-100 Insulin aspart) insulin detemir U-100 100 unit/mL 84 unit subcut HS 04/21/23 05/20/23 subcutaneous solution (Levemir U-100 Insulin) metformin 1,000 mg tablet 1,000 mg PO BID 04/21/23 05/20/23 sotalol 120 mg tablet 120 mg PO BID 05/20/23 05/20/23 Previous Rx's Medication Instructions Recorded metoprolol succinate 50 mg 100 mg (2 x 50 mg) PO BID 30 days 05/04/23 tablet,extended release 24 hr #120 tabs spironolactone 25 mg tablet 12.5 mg (1/2 x 25 mg) PO DAILY 30 05/04/23 days #15 tabs warfarin 3 mg tablet 3 mg PO DAILY #30 tabs 05/04/23 Results & Data (ED) Vital Signs Vital Signs - 24 hr 05/20/23 05:34 05/20/23 05:36 05/20/23 05:43 Temperature 36.8 C Temperature Source Temporal Artery Scan Pulse Rate 83 81 Pulse Rate from SpO2 Sensor Respiratory Rate 17 Respiratory Effort / Characteristics Non-Labored Respiratory Depth Normal Blood Pressure 136/79 Blood Pressure Mean 98 Pulse Oximetry 87 L 96 Oxygen Delivery Method Room Air Nasal Cannula Oxygen Flow Rate 2 Sepsis Recent Fever Within 48 Hours No Sepsis New/Unexplained Change in Mental Status No Sepsis Action Taken by Nursing No Action Required 05/20/23 06:00 05/20/23 06:30 Temperature Temperature Source Pulse Rate 82 84 Pulse Rate from SpO2 Sensor 83 84 Respiratory Rate 23 20 Respiratory Effort / Characteristics Respiratory Depth Blood Pressure 124/64 142/73 H Blood Pressure Mean 84 96 Pulse Oximetry 97 95 Oxygen Delivery Method Oxygen Flow Rate Sepsis Recent Fever Within 48 Hours Sepsis New/Unexplained Change in Mental Status Sepsis Action Taken by Nursing Laboratory Data 05/20/23 05:39 05/20/23 05:39 Lab Results 05/20/23 05/20/23 Range/Units 05:39 06:43 WBC 5.03 (4.8-10.8) K/ul RBC 3.53 L (4.70-6.10) M/uL Hgb 9.6 L (14.0-18.0) g/dl Hct 31.5 L (42.0-52.0) % MCV 89.2 (80.0-100.0) fL MCH 27.2 (25.0-34.0) pg MCHC 30.5 L (32.0-36.0) g/dL RDW Std Deviation 57.1 H (36.4-46.3) fL RDW Coeff of Radha 17.7 H (11.5-14.5) % Plt Count 132 (130-400) K/uL MPV 10.6 (9.4-12.4) fL Immature Gran % (Auto) 0.2 % Neut % (Auto) 65.8 % Lymph % (Auto) 21.9 % [place] % (Auto) 9.1 % Eos % (Auto) 2.4 % Baso % (Auto) 0.6 % Neut # (Auto) 3.31 (1.40-6.50) K/uL Lymph # (Auto) 1.10 L (1.20-3.40) K/uL [place] # (Auto) 0.46 (0.11-0.59) K/uL Eos # (Auto) 0.12 (0.00-0.50) K/uL Baso # (Auto) 0.03 (0.00-0.20) K/uL Immature Gran # (Auto) 0.01 (0.01-0.20) K/uL PT 30.5 H (9.0-12.0) Seconds INR 3.0 H (0.9-1.1) Sodium 138 (136-145) mmol/L Potassium 3.8 (3.5-5.1) mmol/L Chloride 107 (98-107) mmol/L Carbon Dioxide 24 (21-32) mmol/L Anion Gap 7 (3-11) BUN 30 H (6-23) mg/dl Creatinine 1.04 (0.6-1.4) mg/dl Est Cr Clr Drug Dosing 64.0 ml/min Est GFR ( Amer) 76.1 ml/min Est GFR (Non-Af Amer) 65.6 ml/min BUN/Creatinine Ratio 28.8 H (10-20) Glucose 125 H (70-99(Fasting)) mg/dl Calcium 8.8 (8.6-10.3) mg/dl Total Bilirubin 0.8 (0.2-1.0) mg/dl AST 19 (13-39) U/L ALT 21 (7-52) U/L Alkaline Phosphatase 143 H (34-104) U/L Total Protein 6.7 (6.0-8.3) gm/dl Albumin 3.3 L (3.4-5.0) gm/dl Globulin 3.4 (2.5-4.0) gm/dl Albumin/Globulin Ratio 1.0 (0.9-2) Urine Color Yellow Urine Appearance Clear (Clear) Urine pH 5.0 (4.5-7.5) Ur Specific Cord 1.018 (1.000-1.030) Urine Protein 1+ H (Negative) Urine Glucose (UA) Negative (Negative) Urine Ketones Negative (Negative) Urine Blood Negative (Negative) Urine Nitrite Negative (Negative) Urine Bilirubin Negative (Negative) Urine Urobilinogen Negative (Negative) Ur Leukocyte Esterase Trace H (Negative) Urine WBC (Auto) 1-5 (0-5) /hpf Urine RBC (Auto) 0-4 (0-4) /hpf U Hyaline Cast (Auto) 1-5 (0-5) /lpf U Epithel Cells (Auto) >30 H (0-5) /lpf Urine Bacteria (Auto) Negative (Negative) Administered Medications Discontinued Medications Morphine Sulfate (Morphine Sulfate 4 Mg/Ml 1 Ml Carp\Vial) 4 mg IV NOW STA Stop: 05/20/23 06:38 Last Admin: 05/20/23 06:45 Dose: 4 mg Documented By: Morphine Sulfate (Morphine Sulfate 4 Mg/Ml 1 Ml Carp\Vial) 4 mg IV NOW STA Stop: 05/20/23 08:38 Last Admin: 05/20/23 09:17 Dose: 4 mg Documented By: SC Ondansetron HCl (Ondansetron Inj 2 Mg/Ml 2 Ml Vial) 4 mg IV NOW STA Stop: 05/20/23 06:38 Last Admin: 05/20/23 06:45 Dose: 4 mg Documented By: PRASANNA Imaging Data Radiologist's Impression: Lumbar Spine X-Ray 05/20/23 06:37 XR lumbar spine 2-3V CLINICAL HISTORY: lower back pain COMPARISON STUDY: Lumbar spine radiographs April 22, 2023. Lumbar spine CT April 26, 2023. FINDINGS: Right hip arthroplasty, IVC filter and cholecystectomy clips are incidentally noted. Visualized bowel gas pattern is unremarkable. There is severe left hip osteoarthritis. No lumbar spine fractures are identified. There is moderate multilevel facet arthrosis. There is mild multilevel disc space narrowing and moderate osteophytosis within the lumbar spine. The appearance of the lumbar spine is unchanged. IMPRESSION: 1. No acute lumbar spine fracture. 2. No change in appearance of the lumbar spine. Moderate multilevel facet arthrosis and degenerative disc disease. ACT 112: Negative or not required by law. Electronically signed by: Anurag Pandey M.D. 05/20/2023 8:00 AM Discharge Plan Visit Data Chief Complaint: Back Injury/Pain ED Provider: Lopez Romero Discharge Problem: Back pain, Anemia, Elevated INR Discharge Instructions Interventions: ED Discharge Assessment Last Done: 05/20/23 11:42 Discharge Problem: Back pain Qualifiers: Back pain location: low back pain Chronicity: acute Back pain laterality: u nspecified Sciatica presence: unspecified whether sciatica present Qualified Code(s): M54.50 - Low back pain, unspecified Anemia Qualifiers: Anemia type: unspecified type Qualified Code(s): D64.9 - Anemia, unspecified
[2023-05-20 07:11] LABS: Appearance Urine Clear (Clear); Bacteria Urine Automated Negative (Negative); Bilirubin Urine Negative (Negative); Blood Urine Negative (Negative); Color Urine Yellow; Epithelial Cell Urine Auto >30 /lpf (0-5); Glucose Urine UA Negative (Negative); Ketones Urine Negative (Negative); Leukocyte Esterase Urine Trace (Negative); Nitrite Urine Negative (Negative); Protein Urine 1+ (Negative); RBC Urine Automated 0-4 /hpf (0-4); Specific Gravity Urine 1.018 (1.000-1.030); Urobilinogen Urine Negative (Negative)
--- NOTE | 2023-05-20 08:01 | XRay Report ---
XR lumbar spine 2-3V CLINICAL HISTORY: lower back pain COMPARISON STUDY: Lumbar spine radiographs April 22, 2023. Lumbar spine CT April 26, 2023. FINDINGS: Right hip arthroplasty, IVC filter and cholecystectomy clips are incidentally noted. Visual ized bowel gas pattern is unremarkable. There is severe left hip osteoarthritis. No lumbar spine frac tures are identified. There is moderate multilevel facet arthrosis. There is mild multilevel disc spa ce narrowing and moderate osteophytosis within the lumbar spine. The appearance of the lumbar spine i s unchanged. IMPRESSION: 1. No acute lumbar spine fracture. 2. No change in appearance of the lumbar spine. Moderate multilevel facet arthrosis and degenerative disc disease. ACT 112: Negative or not required by law. Electronically signed by: Anurag Pandey M.D. 05/20/2023 8:00 AM
[2023-05-20 08:10] LABS: Prothrombin Time 30.5 Seconds (9.0-12.0)
--- NOTE | 2023-05-20 09:23 | History & Physical Report ---
Date of Service May 20, 2023 Assessment & Plan (1) Lumbago: Plan Lumbago Ambulatory dysfunction --Lumbar Xray:. No acute lumbar spine fracture. No change in appearance of the lumbar spine. Moderate multilevel facet arthrosis and degenerative disc disease. --Lumbar CT from 04/26/23:No acute fracture or subluxation of the lumbar spine identified. Multilevel degenerative changes as described above. There is mild prevertebral edema again at L1 which is favored to be on a degenerative basis and is unchanged from prior. Developing discitis/osteomyelitis considered less likely. Partially imaged right pleural effusion redemonstrated. 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 Continue home diuretics, metoprolol Monitor volume status Atrial fibrillation INR 3.0 Hold Coumadin today Consider to reverse INR if planned for procedure Continue sotalol, metoprolol Glaucoma Right eye blindness Continue home eyedrops DM Type II: Will hold oral diabetic meds Last HbA1c:7.3 ISS, basal Insulin, Accu checks, Diabetic diet Monitor BGs Other Chronic Conditions: Hyperlipidemia Gout Coronary artery disease Hypertension H/O postop DVT S/P IVC filter Aortic valve replacement Pernicious anemia Hb 9.6 today Monitor CBC Continue home medications DVT Px: INR therapeutic Resume Coumadin if no plan for procedure CODE STATUS Full code Disposition PT OT prior to discharge History of Present Illness Chief Complaint: Back Pain Primary Care Provider: Sourav Verde MD Patient is a 83-year-old male with history of glaucoma-right eye blindness, atrial fibrillation on chronic anticoagulation with Coumadin, postop DVT S/P IVC, aortic valve replacement, diabetes mellitus, hyperlipidemia, gout, coronary artery disease, hypertension, pernicious anemia, diastolic heart failure PETER inhibitor nephrotoxicity and other medical problems who was recently admitted at [facility] and was treated for diastolic heart failure, hematuria likely catheter induced, lower back pain and was discharged to rehab facility presents with history of lower back pain. History is obtained both from patient and patient's son at bedside. Patient states that he did did well at rehab and was discharged after 8 days and continued with home physical therapy. Yesterday he noticed to have low back pain which slightly improved with Tylenol. At around 1:30 AM this morning he woke up with significant back pain and he was unable to sit or stand or ambulate secondary to pain. He describes lower back pain to be very sharp, 8/10 intensity, nonradiating, not associated with numbness or tingling, focal weakness, bowel or bladder incontinence. He also denies any fall, trauma. He received morphine while in ED which helped. Denies any history of chest pain, dyspnea, dizziness, cough, fever, chills, headache, change in vision, nausea, vomiting, abdominal pain, dysuria, hematuria. Allergies Allergy/AdvReac Type Severity Reaction Status Date / Time niacin Allergy Intermediate HIVES Verified 04/21/23 09:30 Home Medications Medication Instructions Recorded Confirmed Type nitroglycerin 0.4 mg sublingual 0.4 mg sublingual PRN PRN Chest 12/09/09 05/20/23 History tablet (Nitrostat) Pain ##0 terazosin 2 mg capsule 2 mg PO DAILY ##90 12/07/13 05/20/23 History bismuth subsalicylate 525 mg/15 mL 525 mg PO DAILY PRN Diarrhea ##0 10/13/15 05/20/23 History oral suspension travoprost 0.004 % eye drops 1 drp OPB HS #1 btl 10/13/15 05/20/23 History allopurinol 100 mg tablet 200 mg PO Q2D 04/21/23 05/20/23 History aspirin 81 mg chewable tablet 81 mg PO .MON/SUN/Sun04/21/23 05/20/23 History brimonidine 0.2 % eye drops 1 drp OPL BID 04/21/23 05/20/23 History dorzolamide-timolol (PF) 2 %-0.5 % 1 drp OPL BID 04/21/23 05/20/23 History eye drops in a dropperette ezetimibe 10 mg-simvastatin 40 mg 1 tab PO HS 04/21/23 05/20/23 History tablet furosemide 40 mg tablet 40 mg PO QAM 04/21/23 05/20/23 History insulin aspart U-100 100 unit/mL See Rx Instructions .Route .COMPLEX 04/21/23 05/20/23 History subcutaneous solution (Novolog U-100 Insulin aspart) insulin detemir U-100 100 unit/mL 84 unit subcut HS 04/21/23 05/20/23 History subcutaneous solution (Levemir U-100 Insulin) metformin 1,000 mg tablet 1,000 mg PO BID 04/21/23 05/20/23 History metoprolol succinate 50 mg 100 mg (2 x 50 mg) PO BID 30 days 05/04/23 05/20/23 Rx tablet,extended release 24 hr #120 tabs spironolactone 25 mg tablet 12.5 mg (1/2 x 25 mg) PO DAILY 30 05/04/23 05/20/23 Rx days #15 tabs warfarin 3 mg tablet 3 mg PO DAILY #30 tabs 05/04/23 Rx sotalol 120 mg tablet 120 mg PO BID 05/20/23 05/20/23 History Past Med/Surg History Medical History (Updated 05/20/23 @ 10:19 by Osman Mathis MD) Lumbago Social History Smoking Status: Never smoker Hx Alcohol Use: No Hx Substance Use: No Preferred Language: Luxembourgish Communication Ability: Effective Licensed Bondsman Required: No Beliefs That Will Affect Care: None Current Living Situation: Other Current Living Situation Comment: with son Feels Safe at Home: Yes Assistive Devices: Cane and Walker Review of Systems Review of Systems: All systems reviewed & are unremarkable except as noted in Subjective Physical Exam Physical Exam: Physical Exam: Vitals signs as noted above General Appearance:Obese, no apparent distress Head: normocephalic, Atraumatic,+ poor dentition Eyes: normal inspection, EOMI, +R eye blindness Neck: supple, Trachea midline Respiratory/Chest: Normal breath sounds, CTA, No accessory muscle use Cardiovascular: Metallic Heart sounds, No murmur Abdomen/GI:Soft, Non tender, Bowel sounds present Back: +Lumbar tender Extremities/Musculoskeletal:normal inspection, B/L LE edema, + ichthyosis, chronic venous stasis changes Neurologic/Psych:AAOX3, grossly no focal neurological deficits Skin: normal color, warm Results & Data Results & Data Vital Signs (Past 12 Hours) Vital Signs Temp Pulse Pulse Resp BP BP Pulse Ox 05/20/23 09:15 36.9 C 83 19 120/65 97 05/20/23 06:30 84 20 142/73 H 95 05/20/23 06:00 82 23 124/64 97 05/20/23 05:43 96 05/20/23 05:36 81 05/20/23 05:34 36.8 C 83 17 136/79 87 L O2 Del Method O2 Flow Rate 05/20/23 09:15 Nasal Cannula 2 05/20/23 06:30 05/20/23 06:00 05/20/23 05:43 Nasal Cannula 2 05/20/23 05:36 05/20/23 05:34 Room Air Laboratory Results Short CBC 05/20/23 Range/Units 05:39 WBC 5.03 (4.8-10.8) K/ul Hgb 9.6 L (14.0-18.0) g/dl Hct 31.5 L (42.0-52.0) % Plt Count 132 (130-400) K/uL BMP 05/20/23 05:39 Sodium 138 Potassium 3.8 Chloride 107 Carbon Dioxide 24 BUN 30 H Creatinine 1.04 Glucose 125 H Calcium 8.8 Liver Function 05/20/23 Range/Units 05:39 Total Bilirubin 0.8 (0.2-1.0) mg/dl AST 19 (13-39) U/L ALT 21 (7-52) U/L Alkaline Phosphatase 143 H (34-104) U/L Albumin 3.3 L (3.4-5.0) gm/dl Urine 05/20/23 Range/Units 06:43 Urine Color Yellow Urine Appearance Clear (Clear) Urine pH 5.0 (4.5-7.5) Ur Specific [place] 1.018 (1.000-1.030) Urine Protein 1+ H (Negative) Urine Glucose (UA) Negative (Negative) Diagnostic Findings --Lumbar X ray:No acute lumbar spine fracture. No change in appearance of the lumbar spine. Moderate multilevel facet arthrosis and degenerative disc disease. Code Status & VTE Plan VTE Prophylaxis Plan VTE Prophylaxis will be ordered: Yes
[2023-05-20] MEDS ORDERED: GLUCOSE 10 TAB/TUBE PO PRN (11:55)
[2023-05-20] MEDS ORDERED: NITROGLYCERIN SL 0.4 MG/TAB TAB SL PRN (11:55)
[2023-05-20] MEDS ORDERED: GLUCOSE 40% GEL 15 GM TUBE PO PRN (11:55)
[2023-05-20] MEDS ORDERED: GLUCAGON FOR INJ 1 MG VIAL SQ PRN (11:55)
[2023-05-20] MEDS ORDERED: oxyCODONE/ACETAMINOPHEN 5mg/325mg TAB PO PRN (11:55)
[2023-05-20] MEDS ORDERED: POLYETHYLENE (MIRALAX) 17 GM PACK PO PRN (11:55)
[2023-05-20] MEDS ORDERED: ACETAMINOPHEN 325 MG TAB PO PRN (11:55)
[2023-05-20] MEDS ORDERED: CARBOHYDRATES FOR HYPOGLYCEMIA PO PRN (11:55)
[2023-05-20] MEDS ORDERED: MoRPHine SULFATE 2 MG/ML CARP IV PRN (11:55)
[2023-05-20] MEDS ORDERED: DEXTROSE 50% 50 ML SYRINGE IV PRN (11:55)
[2023-05-20] MEDS: LANTUS PER UNIT CHARGE SQ SCH ×2 (12:39→20:29)
[2023-05-20] MEDS: INSULIN ASPART PER UNIT CHARGE SC SCH ×3 (12:44→20:30)
[2023-05-20] MEDS: allopurinoL 100 MG TAB PO SCH (13:28)
[2023-05-20] MEDS ORDERED: EUCERIN CR 120 GM JAR EXT PRN (15:50)
[2023-05-20] MEDS: TRAVOPROST Z 0.004% OPH SOLN 2.5 ML BTL OPB SCH (20:13)
[2023-05-20] MEDS: BRIMONIDINE TARTRATE 0.2% 5ML OPL SCH (20:13)
[2023-05-20] MEDS: SOTALOL HCL 80 MG TAB PO SCH (20:13)
[2023-05-20] MEDS: DORZOLAMIDE/TIMOLOL 22.3/6.8MG/ML 10 ML BTL OPL SCH (20:13)
[2023-05-20] MEDS: SIMVASTATIN 40 MG TAB PO SCH (20:14)
[2023-05-20] MEDS: EZETIMIBE 10 MG TAB PO SCH (20:14)
[2023-05-20] MEDS: METOPROLOL SUCC 50MG EXT REL TAB PO SCH (20:14)
[2023-05-20] MEDS ORDERED: EZETIMIBE/SIMVASTATIN 10/40MG TAB PO SCH (21:00)
[2023-05-21] MEDS ORDERED: Nursing to Pharmacy Communication SCH ×2 (00:15→16:30)
[2023-05-21] MEDS: INSULIN ASPART PER UNIT CHARGE SC SCH ×3 (06:35→21:00)
[2023-05-21 07:42] LABS: Hematocrit (blood only) 30.3 % (42.0-52.0); Hemoglobin 9.2 g/dl (14.0-18.0); Mean Corpuscular Hemoglobin 27.3 pg (25.0-34.0); Mean Corpuscular Hgb Conc 30.4 g/dL (32.0-36.0); Mean Corpuscular Volume 89.9 fL (80.0-100.0); Platelet Count 126 K/uL (130-400); RDW Coefficient of Variation 17.5 % (11.5-14.5); Red Blood Count 3.37 M/uL (4.70-6.10); White Blood Count 4.94 K/ul (4.8-10.8)
[2023-05-21 08:03] LABS: BUN Creatinine Ratio 23.4 (10-20); Calcium 8.9 mg/dl (8.6-10.3); Creatinine Clr Calc Pharmacy 59.9 ml/min; Est GFR (African American) 73.5 ml/min; Est GFR (Non-African American) 63.4 ml/min; INR 3.2 (0.9-1.1); Prothrombin Time 32.1 Seconds (9.0-12.0)
[2023-05-21] MEDS: SOTALOL HCL 80 MG TAB PO SCH ×2 (08:32→20:11)
[2023-05-21] MEDS: TERAZOSIN HCL 1 MG CAP PO SCH (08:32)
[2023-05-21] MEDS: FUROSEMIDE 40 MG TAB PO SCH (08:32)
[2023-05-21] MEDS: SPIRONOLACTONE 12.5 MG TAB PO SCH (08:32)
[2023-05-21] MEDS: ASPIRIN 81 MG CHEW PO SCH (08:32)
[2023-05-21] MEDS: BRIMONIDINE TARTRATE 0.2% 5ML OPL SCH ×2 (08:33→20:11)
[2023-05-21] MEDS: METOPROLOL SUCC 50MG EXT REL TAB PO SCH ×2 (08:33→20:10)
[2023-05-21] MEDS: DORZOLAMIDE/TIMOLOL 22.3/6.8MG/ML 10 ML BTL OPL SCH ×2 (08:33→20:11)
--- NOTE | 2023-05-21 08:38 | Hospitalist Progress Note ---
Date of Service May 21, 2023 Assessment & Plan (1) Lumbago: Plan Lumbago Ambulatory dysfunction --Lumbar Xray:. No acute lumbar spine fracture. No change in appearance of the lumbar spine. Moderate multilevel facet arthrosis and degenerative disc disease. --Lumbar CT from 04/26/23:No acute fracture or subluxation of the lumbar spine identified. Multilevel degenerative changes as described above. There is mild prevertebral edema again at L1 which is favored to be on a degenerative basis and is unchanged from prior. Developing discitis/osteomyelitis considered less likely. Partially imaged right pleural effusion redemonstrated. -- Cannot get MRI due to metallic heart valve Pain control PT OT, fall precautions Orthopedics consulted-->recommends supportive care and PT Chronic diastolic heart failure-chronic, stable. Last EF 60 to 65%. Continue home diuretics, metoprolol Atrial fibrillation chronic, stable. INR is at goal. Restart coumadin for aortic valve. Continue sotalol, metoprolol Glaucoma Right eye blindness, stable. Continue home eyedrops DM Type II, chronic, stable. Will hold oral diabetic meds Last HbA1c:7.3 ISS, basal Insulin, Accu checks, Diabetic diet Monitor BGs Other Chronic Conditions: Hyperlipidemia Gout Coronary artery disease Hypertension H/O postop DVT S/P IVC filter Aortic valve replacement Pernicious anemia Hb 9.6 today All stable --Continue home medications DVT Px: INR therapeutic CODE STATUS Full code Disposition PT OT prior to discharge I spent a total of60 minutes coordinating, documenting, and providing care for this patient excluding time spent in the performance of separately billed services Amisha Matos DO [facility] Hospitalist Admission and Anticipated Discharge Date Admission Date: May 20, 2023 Subjective 83 yo M presents with R lower back pain he has difficulty sitting up on the edge of bed still pain at rest is improved with pain medications. Son at bedside and assists with the history. Physical Exam Physical Exam: CONSTITUTIONAL: WNWD, vitals as above, generally well-appearing, NAD EYES: normal conjunctivae, no scleral icterus ENT: external ear and nose normal, MMM NECK: trachea midline RESPIRATORY: clear to auscultation bilaterally, no crackles, rales or wheezes, normal respiratory effort CARDIOVASCULAR: regular rate and rhythm, S1 and 2 heard without murmurs, gallops or rubs, no JVD, no peripheral edema CHEST: inspection of chest was normal GASTROINTESTINAL: soft, nontender, ND, no guarding MUSCULOSKELETAL: strength 5/5 throughout, SLR positive on the right leg while patient was in supine position, head is normocephalic and atraumatic, cannot move around the bed with ease. SKIN: warm and dry NEUROLOGIC: Unable to elicit bilteral DTR at the knees. No facial palsy, no dysarthria. CN 2-12 grossly intact, no sensory deficit, normal cognition, normal speech, no tremor PSYCHIATRIC: alert cooperative and oriented to person, place and time. Euthymic mood, makes good eye contact, language grossly intact, recent and remote memory grossly intact. Results & Data Results & Data Vital Signs (Past 12 Hours) Vital Signs Temp Pulse Resp BP Pulse Ox O2 Del Method O2 Flow Rate 05/21/23 07:34 36.4 C 76 17 137/63 99 Nasal Cannula 2 Laboratory Results Short CBC 05/21/23 Range/Units 07:06 WBC 4.94 (4.8-10.8) K/ul Hgb 9.2 L (14.0-18.0) g/dl Hct 30.3 L (42.0-52.0) % Plt Count 126 L (130-400) K/uL BMP 05/21/23 07:06 Sodium 139 Potassium 4.0 Chloride 107 Carbon Dioxide 27 BUN 25 H Creatinine 1.07 Glucose 126 H Calcium 8.9 Medications Administered Current Inpatient Medications Acetaminophen (Acetaminophen 325 Mg Tab) 650 mg PO Q4H PRN PRN Reason: Pain or Fever Stop: 06/19/23 11:54 Allopurinol (Allopurinol 100 Mg Tab) 200 mg PO Q2D@0900 [facility] Stop: 06/19/23 11:59 Last Admin: 05/20/23 13:28 Dose: 200 mg Aspirin (Aspirin 81 Mg Chew) 81 mg PO MoWeFr@0900 [facility] Stop: 06/20/23 08:59 Last Admin: 05/21/23 08:32 Dose: 81 mg Brimonidine Tartrate (Brimonidine Tartrate 0.2% 5ml) 1 drops OPL BID [facility] Stop: 06/19/23 20:59 Last Admin: 05/21/23 08:33 Dose: 1 drops Dextrose (Dextrose 50% 50 Ml Syringe) 25 - 50 ml IV UD PRN; Protocol PRN Reason: Hypoglycemia Protocol Stop: 06/19/23 11:54 Dorzolamide/Timolol (Dorzolamide/Timolol 22.3/6.8mg/Ml 10 Ml Btl) 1 drops OPL BID [facility] Stop: 06/19/23 20:59 Last Admin: 05/21/23 08:33 Dose: 1 drops Ezetimibe (Ezetimibe 10 Mg Tab) 10 mg PO HS [facility] Stop: 06/19/23 20:59 Last Admin: 05/20/23 20:14 Dose: 10 mg Furosemide (Furosemide 40 Mg Tab) 40 mg PO QAM [facility] Stop: 06/20/23 08:59 Last Admin: 05/21/23 08:32 Dose: 40 mg Glucagon (Glucagon For Inj 1 Mg Vial) 1 mg SQ UD PRN; Protocol PRN Reason: Hypoglycemia Protocol Stop: 06/19/23 11:54 Glucose (Glucose 10 Tab/Tube) 4 - 8 tab PO UD PRN; Protocol PRN Reason: Hypoglycemia Treatment Stop: 06/19/23 11:54 Glucose (Glucose 40% Gel 15 Gm Tube) 15 - 30 gm PO UD PRN; Protocol PRN Reason: Hypoglycemia Protocol Stop: 06/19/23 11:54 Insulin Aspart (Insulin Aspart Per Unit Charge) 0 units SC Q6 [facility] Stop: 06/20/23 05:59 Last Admin: 05/21/23 06:35 Dose: Not Given Insulin Glargine (Lantus Per Unit Charge) 15 units SQ BID [facility] Stop: 06/19/23 11:54 Last Admin: 05/20/23 20:29 Dose: 15 units Metoprolol Succinate (Metoprolol Succ 50mg Ext Rel Tab) 100 mg PO BID [facility] Stop: 06/19/23 20:59 Last Admin: 05/21/23 08:33 Dose: 100 mg Miscellaneous (Carbohydrates For Hypoglycemia ) 15 - 30 gm PO UD PRN PRN Reason: Hypoglycemia Protocol Stop: 06/19/23 11:54 Morphine Sulfate (Morphine Sulfate 2 Mg/Ml Carp) 2 mg IV Q6H PRN PRN Reason: Severe Pain (Scale 7, 8, 9,10) Stop: 06/03/23 11:54 Multi-Ingredient Cream (Eucerin Cr 120 Gm Jar) 1 appln EXT BID PRN PRN Reason: Affected Skin Folds Stop: 06/19/23 15:49 Nitroglycerin (Nitroglycerin Sl 0.4 Mg/Tab Tab) 0.4 mg SL PRN PRN PRN Reason: Chest Pain Stop: 06/19/23 11:54 Oxycodone/Acetaminophen (Oxycodone/Acetaminophen 5mg/325mg Tab) 1 tab PO Q4H PRN PRN Reason: Mild to Moderate pain Stop: 06/03/23 11:54 Last Admin: 05/20/23 18:04 Dose: 1 tab Polyethylene Glycol (Polyethylene (Miralax) 17 Gm Pack) 17 gm PO DAILY PRN PRN Reason: Constipation Stop: 06/19/23 11:54 Simvastatin (Simvastatin 40 Mg Tab) 40 mg PO HS [facility]; Protocol Stop: 06/19/23 20:59 Last Admin: 05/20/23 20:14 Dose: 40 mg Sotalol HCl (Sotalol Hcl 80 Mg Tab) 120 mg PO BID [facility] Stop: 06/19/23 20:59 Last Admin: 05/21/23 08:32 Dose: 120 mg Spironolactone (Spironolactone 12.5 Mg Tab) 12.5 mg PO DAILY [facility] Stop: 06/20/23 08:59 Last Admin: 05/21/23 08:32 Dose: 12.5 mg Terazosin HCl (Terazosin Hcl 1 Mg Cap) 2 mg PO DAILY [facility] Stop: 06/20/23 08:59 Last Admin: 05/21/23 08:32 Dose: 2 mg Travoprost (Travoprost Z 0.004% Oph Soln 2.5 Ml Btl) 1 drops OPB HS [facility] Stop: 06/19/23 20:59 Last Admin: 05/20/23 20:13 Dose: 1 drops
[2023-05-21] MEDS: LANTUS PER UNIT CHARGE SQ SCH ×2 (09:41→21:00)
--- NOTE | 2023-05-21 10:36 | Orthopedic Consultation ---
Date of Consultation May 21, 2023 Assessment & Plan (1) Back pain: CAT scan and x-rays lumbar spine demonstrate normal age-related changes. It be reasonable to initiate a course of physical therapy to see if he is able to tolerate ambulation. I will allow him to today as there is no need for n.p.o. at this time. If he fails to improve an MRI if possible of the lumbar spine would be reasonable. History of Present Illness Reason for Consultation: Back pain Attending Physician: Amisha Matos DO History of Present Illness This is an 83-year-old male presents emergency room with a sudden onset of back pain. He denies any trauma fall or event. Denies any radicular complaints into the lower extremities. Denies any numbness or tingling. He states today but bed is painful to him. Allergies Allergy/AdvReac Type Severity Reaction Status Date / Time niacin Allergy Intermediate HIVES Verified 04/21/23 09:30 Home Medications Medication Instructions Recorded Confirmed Type nitroglycerin 0.4 mg sublingual 0.4 mg sublingual PRN PRN Chest 12/09/09 05/20/23 History tablet (Nitrostat) Pain ##0 terazosin 2 mg capsule 2 mg PO DAILY ##90 12/07/13 05/20/23 History bismuth subsalicylate 525 mg/15 mL 525 mg PO DAILY PRN Diarrhea ##0 10/13/15 05/20/23 History oral suspension travoprost 0.004 % eye drops 1 drp OPB HS #1 btl 10/13/15 05/20/23 History allopurinol 100 mg tablet 200 mg PO Q2D 04/21/23 05/20/23 History aspirin 81 mg chewable tablet 81 mg PO .MON/SUN/Sun04/21/23 05/20/23 History brimonidine 0.2 % eye drops 1 drp OPL BID 04/21/23 05/20/23 History dorzolamide-timolol (PF) 2 %-0.5 % 1 drp OPL BID 04/21/23 05/20/23 History eye drops in a dropperette ezetimibe 10 mg-simvastatin 40 mg 1 tab PO HS 04/21/23 05/20/23 History tablet furosemide 40 mg tablet 40 mg PO QAM 04/21/23 05/20/23 History insulin aspart U-100 100 unit/mL See Rx Instructions .Route .COMPLEX 04/21/23 05/20/23 History subcutaneous solution (Novolog U-100 Insulin aspart) insulin detemir U-100 100 unit/mL 84 unit subcut HS 04/21/23 05/20/23 History subcutaneous solution (Levemir U-100 Insulin) metformin 1,000 mg tablet 1,000 mg PO BID 04/21/23 05/20/23 History metoprolol succinate 50 mg 100 mg (2 x 50 mg) PO BID 30 days 05/04/23 05/20/23 Rx tablet,extended release 24 hr #120 tabs spironolactone 25 mg tablet 12.5 mg (1/2 x 25 mg) PO DAILY 30 05/04/23 05/20/23 Rx days #15 tabs warfarin 3 mg tablet 3 mg PO DAILY #30 tabs 05/04/23 Rx sotalol 120 mg tablet 120 mg PO BID 05/20/23 05/20/23 History Patient History Medical History (Updated 05/20/23 @ 11:59 by Lopez Romero DO) Lumbago Social History Smoking Status: Former smoker Hx Alcohol Use: No Hx Substance Use: No Preferred Language: German Communication Ability: Effective Architectural Examiner Required: No Beliefs That Will Affect Care: None Current Living Situation: Family Current Living Situation Comment: Lives with jennifer Dixon Other Information That Helps Us Care for You: No Feels Safe at Home: Yes Safety Concerns: Feels Safe At This Time Assistive Devices: Glasses Physical Exam Physical Exam: On exam he has reasonable plantarflexion dorsiflexion. He does have bilateral quadriceps intact. Sensory is symmetric. He has difficulty sitting up without reproducing back pain. Results & Data Vital Signs (Past 12 Hours) Vital Signs Temp Pulse Resp BP Pulse Ox O2 Del Method O2 Flow Rate 05/21/23 08:00 Nasal Cannula 2 05/21/23 07:34 36.4 C 76 17 137/63 99 Nasal Cannula 2 (1) Back pain Back pain laterality: unspecified Back pain location: low back pain Chronicity: acute Sciatica presence: unspecified whether sciatica present Qualified Code(s): M54.50 - Low back pain, unspecified
[2023-05-21] MEDS ORDERED: INSULIN ASPART PER UNIT CHARGE SC ONE (17:45)
[2023-05-21] MEDS: TRAVOPROST Z 0.004% OPH SOLN 2.5 ML BTL OPB SCH (20:11)
[2023-05-21] MEDS: SIMVASTATIN 40 MG TAB PO SCH (20:11)
[2023-05-21] MEDS: EZETIMIBE 10 MG TAB PO SCH (20:11)
[2023-05-21] MEDS: WARFARIN SOD 4 MG TAB PO SCH (20:59)
[2023-05-22 06:39] LABS: INR 3.4 (0.9-1.1); Prothrombin Time 34.2 Seconds (9.0-12.0)
--- NOTE | 2023-05-22 06:50 | Communication Note ---
Date of Service: May 22, 2023 640 AM Made aware by RN of patient complaints of blurred vision on the left eye. New problem as per patient. No headache, no eye pain complaints. 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 No prior episodes. SBP 140s BSG 140s. PPE: OS: No EOM entrapment VA: Struggles with counting fingers and reading letters with both near and far vision. 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 Serrano.
--- NOTE | 2023-05-22 08:36 | Hospitalist Progress Note ---
Date of Service May 22, 2023 Assessment & Plan (1) Lumbago: Plan: Lumbago Ambulatory dysfunction --Lumbar Xray:. No acute lumbar spine fracture. No change in appearance of the lumbar spine. Moderate multilevel facet arthrosis and degenerative disc disease. --Lumbar CT from 04/26/23:No acute fracture or subluxation of the lumbar spine identified. Multilevel degenerative changes as described above. There is mild prevertebral edema again at L1 which is favored to be on a degenerative basis and is unchanged from prior. Developing discitis/osteomyelitis considered less likely. Partially imaged right pleural effusion redemonstrated. 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 No change with the 2mg dose this am, will give 5mg now. Tramadol for breakthrough. Moving more today. (2) Vision loss: Plan: Longstanding history of receiving injections in his eyes to prevent blindness. Known glaucoma, and he has been continued on home eyedrops. 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 Woke up unable to see from right eye and now partial vision loss reported in the left eye. Patient does have atrial fibrillation but INR is therapeutic. CTA head neck/CT brain to rule out stroke. Will transfer patient to telemetry. No headache, but will get ESR to rule out TA. Further workup as needed pending neurology recommendations. Coumadin is therapeutic, cont ASA and statin as currently taking. (3) Hypoxia: Plan: Not on oxygen at home. Wean as tolerated. Chest x-ray and EKG pending (4) DM2 (diabetes mellitus, type 2): Plan: DM Type II, chronic, stable. 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 Trend daily and adjust. (6) Atrial fibrillation: Plan: persistent, stable. Cont metoprolol and coumadin per home regimen. 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 Cont current therapy (8) S/P AVR: Plan: DVT Px: Coumadin--INR therapeutic CODE STATUS Full code Disposition: per PT/OT I spent a total of60 minutes coordinating, documenting, and providing care for this patient excluding time spent in the performance of separately billed services Amisha Matos DO [facility] Hospitalist Admission and Anticipated Discharge Date Admission Date: May 21, 2023 Subjective 83 yo M presents with R lower back pain Doing better with movement today. He was able to get out of bed to chair with assistance No adverse effects with the 2mg valium this am, and he doesn't remember feeling much different after taking this dose He reports losing vision totally in his right eye overnight (was partially blind from h/o vitreous hemorrhage already) Son reports having called his opthalmologist this morning, Dr. Rosenbaum, who recommended a stroke workup and GCA rule out. The patient denies any headaches or eye pain He has the persistent loss in his vision still. He went to sleep and woke up this way. Physical Exam Physical Exam: CONSTITUTIONAL: WNWD, vitals as above, generally well-appearing, NAD EYES: normal conjunctivae, no scleral icterus ENT: external ear and nose normal, MMM NECK: trachea midline RESPIRATORY: clear to auscultation bilaterally, no crackles, rales or wheezes, normal respiratory effort CARDIOVASCULAR: regular rate and rhythm, S1 and 2 heard without murmurs, gallops or rubs, no JVD, no peripheral edema CHEST: inspection of chest was normal GASTROINTESTINAL: soft, nontender, ND, no guarding MUSCULOSKELETAL: strength 5/5 throughout, difficult for him to flex/extend his legs whil in a semirecumbent position in the bed 2/2 back pain. SKIN: warm and dry NEUROLOGIC: Unable to elicit bilteral DTR at the knees. No facial palsy, no dysarthria. CN 2-12 grossly intact, no sensory deficit, normal cognition, normal speech, no tremor PSYCHIATRIC: alert cooperative and oriented to person, place and time. Euthymic mood, makes good eye contact, language grossly intact, recent and remote memory grossly intact. Results & Data Results & Data Vital Signs (Past 12 Hours) Vital Signs Temp Pulse Resp BP Pulse Ox O2 Del Method O2 Flow Rate 05/22/23 08:02 36.8 C 88 16 141/66 H 97 Room Air 05/22/23 06:39 36.6 C 80 18 141/80 H 95 Nasal Cannula 2 05/21/23 21:18 Nasal Cannula 2 Medications Administered Current Inpatient Medications Acetaminophen (Acetaminophen 500 Mg Tab) 1,000 mg PO Q8H [facility] Stop: 06/21/23 08:44 Allopurinol (Allopurinol 100 Mg Tab) 200 mg PO Q2D@0900 [facility] Stop: 06/19/23 11:59 Last Admin: 05/20/23 13:28 Dose: 200 mg Aspirin (Aspirin 81 Mg Chew) 81 mg PO MoWeFr@0900 [facility] Stop: 06/20/23 08:59 Last Admin: 05/21/23 08:32 Dose: 81 mg Brimonidine Tartrate (Brimonidine Tartrate 0.2% 5ml) 1 drops OPL BID [facility] Stop: 06/19/23 20:59 Last Admin: 05/21/23 20:11 Dose: 1 drops Dextrose (Dextrose 50% 50 Ml Syringe) 25 - 50 ml IV UD PRN; Protocol PRN Reason: Hypoglycemia Protocol Stop: 06/19/23 11:54 Diazepam (Diazepam 2 Mg Tablet) 2 mg PO BID [facility] Stop: 06/21/23 08:59 Dorzolamide/Timolol (Dorzolamide/Timolol 22.3/6.8mg/Ml 10 Ml Btl) 1 drops OPL BID [facility] Stop: 06/19/23 20:59 Last Admin: 05/21/23 20:11 Dose: 1 drops Ezetimibe (Ezetimibe 10 Mg Tab) 10 mg PO HS [facility] Stop: 06/19/23 20:59 Last Admin: 05/21/23 20:11 Dose: 10 mg Furosemide (Furosemide 40 Mg Tab) 40 mg PO QAM [facility] Stop: 06/20/23 08:59 Last Admin: 05/21/23 08:32 Dose: 40 mg Glucagon (Glucagon For Inj 1 Mg Vial) 1 mg SQ UD PRN; Protocol PRN Reason: Hypoglycemia Protocol Stop: 06/19/23 11:54 Glucose (Glucose 10 Tab/Tube) 4 - 8 tab PO UD PRN; Protocol PRN Reason: Hypoglycemia Treatment Stop: 06/19/23 11:54 Glucose (Glucose 40% Gel 15 Gm Tube) 15 - 30 gm PO UD PRN; Protocol PRN Reason: Hypoglycemia Protocol Stop: 06/19/23 11:54 Insulin Aspart (Insulin Aspart Per Unit Charge) 0 units SC ACHS [facility] Stop: 06/20/23 20:59 Last Admin: 05/21/23 21:00 Dose: 1 units Insulin Glargine (Lantus Per Unit Charge) 15 units SQ BID [facility] Stop: 06/19/23 11:54 Last Admin: 05/21/23 21:00 Dose: 15 units Metoprolol Succinate (Metoprolol Succ 50mg Ext Rel Tab) 100 mg PO BID [facility] Stop: 06/19/23 20:59 Last Admin: 05/21/23 20:10 Dose: 100 mg Miscellaneous (Carbohydrates For Hypoglycemia ) 15 - 30 gm PO UD PRN PRN Reason: Hypoglycemia Protocol Stop: 06/19/23 11:54 Morphine Sulfate (Morphine Sulfate 2 Mg/Ml Carp) 2 mg IV Q6H PRN PRN Reason: Severe Pain (Scale 7, 8, 9,10) Stop: 06/03/23 11:54 Multi-Ingredient Cream (Eucerin Cr 120 Gm Jar) 1 appln EXT BID PRN PRN Reason: Affected Skin Folds Stop: 06/19/23 15:49 Nitroglycerin (Nitroglycerin Sl 0.4 Mg/Tab Tab) 0.4 mg SL PRN PRN PRN Reason: Chest Pain Stop: 06/19/23 11:54 Polyethylene Glycol (Polyethylene (Miralax) 17 Gm Pack) 17 gm PO DAILY PRN PRN Reason: Constipation Stop: 06/19/23 11:54 Simvastatin (Simvastatin 40 Mg Tab) 40 mg PO HS [facility]; Protocol Stop: 06/19/23 20:59 Last Admin: 05/21/23 20:11 Dose: 40 mg Sotalol HCl (Sotalol Hcl 80 Mg Tab) 120 mg PO BID [facility] Stop: 06/19/23 20:59 Last Admin: 05/21/23 20:11 Dose: 120 mg Spironolactone (Spironolactone 12.5 Mg Tab) 12.5 mg PO DAILY [facility] Stop: 06/20/23 08:59 Last Admin: 05/21/23 08:32 Dose: 12.5 mg Terazosin HCl (Terazosin Hcl 1 Mg Cap) 2 mg PO DAILY [facility] Stop: 06/20/23 08:59 Last Admin: 05/21/23 08:32 Dose: 2 mg Tramadol HCl (Tramadol Hcl 50 Mg Tablet) 50 mg PO Q4H PRN PRN Reason: breakthorugh pain Stop: 06/21/23 08:34 Travoprost (Travoprost Z 0.004% Oph Soln 2.5 Ml Btl) 1 drops OPB HS [facility] Stop: 06/19/23 20:59 Last Admin: 05/21/23 20:11 Dose: 1 drops Warfarin Sodium (Warfarin Sod 4 Mg Tab) 4 mg PO DAILY@1600 [facility] Stop: 06/20/23 19:34 Last Admin: 05/21/23 20:59 Dose: Not Given (6) Atrial fibrillation Atrial fibrillation type: persistent (not longstanding) Qualified Code(s): I48.19 - Other persistent atrial fibrillation
[2023-05-22] MEDS: SPIRONOLACTONE 12.5 MG TAB PO SCH (09:14)
[2023-05-22] MEDS: SOTALOL HCL 80 MG TAB PO SCH ×2 (09:14→20:43)
[2023-05-22] MEDS: FUROSEMIDE 40 MG TAB PO SCH (09:14)
[2023-05-22] MEDS: TERAZOSIN HCL 1 MG CAP PO SCH (09:14)
[2023-05-22] MEDS: allopurinoL 100 MG TAB PO SCH (09:14)
[2023-05-22] MEDS: METOPROLOL SUCC 50MG EXT REL TAB PO SCH ×2 (09:14→20:44)
[2023-05-22] MEDS: BRIMONIDINE TARTRATE 0.2% 5ML OPL SCH ×2 (09:15→20:48)
[2023-05-22] MEDS: diazePAM 2 MG TABLET PO SCH ×2 (09:24→20:42)
[2023-05-22] MEDS: ACETAMINOPHEN 500 MG TAB PO SCH ×2 (09:24→17:49)
[2023-05-22] MEDS: DORZOLAMIDE/TIMOLOL 22.3/6.8MG/ML 10 ML BTL OPL SCH ×2 (09:25→20:48)
[2023-05-22] MEDS: INSULIN ASPART PER UNIT CHARGE SC SCH ×4 (09:25→20:45)
[2023-05-22] MEDS: LANTUS PER UNIT CHARGE SQ SCH ×2 (09:25→20:42)
[2023-05-22] MEDS: traMADol HCL 50 MG TABLET PO PRN ×2 (10:19→20:42)
[2023-05-22] MEDS ORDERED: diazePAM 5 MG TABLET PO STA (14:45)
[2023-05-22] MEDS ORDERED: OPTIRAY 320 125ml IV ONE (16:19)
--- NOTE | 2023-05-22 16:33 | CT Scan Report ---
CT SCAN OF THE BRAIN WITHOUT IV CONTRAST CLINICAL HISTORY: Visual changes. COMPARISON STUDY: No priors. TECHNIQUE: Unenhanced axial CT scan of the brain is performed from the vertex to the skull base. A do se lowering technique was utilized adhering to the principles of ALARA. FINDINGS: Brain parenchyma: There is age-related involutional change noting [id number] subcortical and pe riventricular microangiopathic disease. There is no hemorrhage, mass effect, or evidence of acute ter ritorial ischemia by CT criteria. Gallegos-white matter differentiation is preserved. No extra-axial flui d collection is seen. Ventricles, sulci, cisterns: Prominent secondary to involutional change. Intracranial vasculature: There is atherosclerotic calcification of the cavernous carotid and vertebr al arteries. Calvarium: Unremarkable. Sinuses and mastoids: There is mucosal opacification of the maxillary, frontal, and ethmoid sinuses. There are trace mastoid effusions. Orbits: The bony orbits are grossly intact. There are bilateral ocular lens implants. IMPRESSION: 1. There is no hemorrhage, mass effect, or evidence of acute territorial ischemia by CT criteria. 2. Paranasal sinus disease as above. ACT 112: Negative or not required by law. Electronically signed by: Alexandre Quinn M.D. 05/22/2023 4:31 PM
--- NOTE | 2023-05-22 16:37 | CT Scan Report ---
CT ANGIOGRAM OF THE NECK CLINICAL HISTORY: Visual changes. COMPARISON STUDY: Chest CT dated 04/21/2023. TECHNIQUE: Following the IV administration of 120 of Optiray 320, CT angiogram of the neck was perfor med from the aortic arch to the skull base. Images are reviewed in the axial, sagittal, and coronal p lanes. 3-D MIPS images are created and assessed. IV contrast was administered without complication. A ll measurements were calculated based on NASCET criteria. A dose lowering technique was utilized adh ering to the principles of ALARA. CT DOSE: 1195.57 mGy.cm FINDINGS: Thoracic aorta: There is atherosclerotic calcification of the thoracic aorta. Visualized portions of the thoracic aorta are normal in caliber. The aortic arch demonstrates standard 3-vessel anatomy. Right carotid arterial system: The right common carotid artery is widely patent, as are the right int ernal and external carotid arteries. Calcified plaque is noted in the carotid bulb. Left carotid arterial system: The left common carotid artery is widely patent, as are the left corporate communications intern al and external carotid arteries. Calcified plaque is noted in the carotid bulb. Vertebral arteries: The vertebral arteries are widely patent bilaterally and codominant. Subclavian arteries: Widely patent bilaterally. Intracranial vasculature: The visualized intracranial vessels at the skull base are patent. Jugular veins: Widely patent bilaterally. Brain parenchyma: The visualized brain parenchyma the skull base is within normal limits. Lung apices: A 9 mm left apical pulmonary nodule is seen on image #52. Partially visualized upper lob e lung parenchyma is otherwise clear. Soft tissues: The visualized pharyngeal soft tissues are normal in appearance noting angiographic pha se technique. The oropharyngeal airway appears widely patent. The thyroid gland is enlarged and heter ogeneous consistent with goiter. A calcified sialolith is noted in the left parotid gland. The saliva ry glands are otherwise normal in appearance. No cervical lymphadenopathy is seen. Skeletal structures: The skeletal structures are osteopenic. The visualized calvarium at the skull ba se appears intact. The imaged cervical spine is maintained noting multilevel spondylosis. The patient is status post midline sternotomy. Sinuses and mastoids: There is good opacification of the maxillary and ethmoid sinuses. Thickening an d sclerosis of the sinus rodriguez indicates chronicity. There is trace left mastoid effusion. The right mastoid air cells are well pneumatized. IMPRESSION: 1. Unremarkable CT angiogram of the neck. 2. A 9 mm left apical pulmonary nodule is unchanged from the 04/21/[address] 3. Paranasal sinus disease as above. 4. Additional findings as above. ACT 112: Negative or not required by law. Electronically signed by: Alexandre Quinn M.D. 05/22/2023 4:35 PM
--- NOTE | 2023-05-22 16:40 | XRay Report ---
SINGLE VIEW CHEST CLINICAL HISTORY: Hypoxia FINDINGS: 2 AP, portable, upright chest radiographs are compared to study dated 04/25/2023 and correla aubrey with chest CT dated 04/21/2023. The examination is degraded by portable technique and patient rota tion. The patient is status post midline sternotomy. The heart is enlarged noting atherosclerotic mario alberto cification of the thoracic aorta. There is pulmonary vascular congestion. Bilateral airspace opacitie s likely represent pulmonary edema. There are right larger than left pleural effusions with dependent consolidation. No pneumothorax is seen. The skeletal structures are osteopenic. The bony thorax is g rossly intact. Cholecystectomy clips are noted in the right upper quadrant. IMPRESSION: 1. Cardiomegaly with evidence of congestive failure and pulmonary edema. Radiographic follow-up to re solution is recommended. 2. Right larger than left pleural effusions with dependent consolidation. ACT 112: Negative or not required by law. Electronically signed by: Alexandre Quinn M.D. 05/22/2023 4:38 PM
--- NOTE | 2023-05-22 17:02 | CT Scan Report ---
CT angio head w con CLINICAL HISTORY: r/o stroke, visual changes TECHNIQUE: CT angiography of the head was performed following intravenous administration of iodinated contrast. Coronal and sagittal MIPS were obtained from the axial data set and were submitted for rev iew. Automated dose lowering techniques and/or adjustment according to patient size were utilized fo r this examination. All measurements were calculated based on NASCET criteria. Comparison: Comparison is made to CT head 05/22/2023 FINDINGS: CTA Head: The anterior and posterior cerebral circulations are patent. No hemodynamically significan t stenosis, aneurysm, dissection, or arteriovenous malformation is shown. IMPRESSION: No occlusion, hemodynamically significant stenosis, aneurysm, dissection, or arteriovenous malformati on in the major intracranial arteries. Assessment of stenosis of the internal carotid arteries is based on NASCET criteria. ACT 112: Negative or not required by law. Electronically signed by: Chandrakant Head M.D. 05/22/2023 5:00 PM
--- NOTE | 2023-05-22 18:39 | Consultation ---
Date of Consultation May 22, 2023 Assessment & Plan (1) Vision loss: The patient has numerous long standing ocular pathologies including macular degeneration, glaucoma, complicated cataract surgery, and corneal disease. 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 The use frequent artificial tears (Q4hrs) may alleviate this to some extent. It is difficult at the bedside and with limited history to determine with any certainty the cause of his most recent vision changes. There does not appear to be any evidence of an arteritic optic neuropathy due to temporal arteritis given the lack of optic nerve swelling or hemorrhaging. It does not appear that there is any urgent problem requiring treatment while in the hospital and follow up as an outpatient with Dr. Rosenbaum would be reasonable. History of Present Illness Reason for Consultation: Vison loss Attending Physician: Amisha Matos, DO History of Present Illness The patient reports that he awoke today with worsening vision in his right eye. In addition he feels there may be some more mild vision loss in his left eye. 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 However it was determined recently that the injections would no longer help. He had cataract surgery many years ago in the right eye which had complications resulting in damage to the cornea. He states that Dr. Rosenbaum has treated him with a bandage contact lens in the left eye. 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 In both eyes he has glaucoma. In the right eye he has a tube shunt placed for pressure management. He is on Travaprost, dorzolamide/timolol, and brimonidine. A CT scan was unremarkable. He has an elevate ESR. Allergies Allergy/AdvReac Type Severity Reaction Status Date / Time niacin Allergy Intermediate HIVES Verified 04/21/23 09:30 Home Medications Medication Instructions Recorded Confirmed Type nitroglycerin 0.4 mg sublingual 0.4 mg sublingual PRN PRN Chest 12/09/09 05/20/23 History tablet (Nitrostat) Pain ##0 terazosin 2 mg capsule 2 mg PO DAILY ##90 12/07/13 05/20/23 History bismuth subsalicylate 525 mg/15 mL 525 mg PO DAILY PRN Diarrhea ##0 10/13/15 05/20/23 History oral suspension travoprost 0.004 % eye drops 1 drp OPB HS #1 btl 10/13/15 05/20/23 History allopurinol 100 mg tablet 200 mg PO Q2D 04/21/23 05/20/23 History aspirin 81 mg chewable tablet 81 mg PO .MON/SUN/Sun04/21/23 05/20/23 History brimonidine 0.2 % eye drops 1 drp OPL BID 04/21/23 05/20/23 History dorzolamide-timolol (PF) 2 %-0.5 % 1 drp OPL BID 04/21/23 05/20/23 History eye drops in a dropperette ezetimibe 10 mg-simvastatin 40 mg 1 tab PO HS 04/21/23 05/20/23 History tablet furosemide 40 mg tablet 40 mg PO QAM 04/21/23 05/20/23 History insulin aspart U-100 100 unit/mL See Rx Instructions .Route .COMPLEX 04/21/23 05/20/23 History subcutaneous solution (Novolog U-100 Insulin aspart) insulin detemir U-100 100 unit/mL 84 unit subcut HS 04/21/23 05/20/23 History subcutaneous solution (Levemir U-100 Insulin) metformin 1,000 mg tablet 1,000 mg PO BID 04/21/23 05/20/23 History metoprolol succinate 50 mg 100 mg (2 x 50 mg) PO BID 30 days 05/04/23 05/20/23 Rx tablet,extended release 24 hr #120 tabs spironolactone 25 mg tablet 12.5 mg (1/2 x 25 mg) PO DAILY 30 05/04/23 05/20/23 Rx days #15 tabs warfarin 3 mg tablet 3 mg PO DAILY #30 tabs 05/04/23 Rx sotalol 120 mg tablet 120 mg PO BID 05/20/23 05/20/23 History Patient History Medical History (Updated 05/22/23 @ 15:40 by Amisha Matos DO) Lumbago Social History Smoking Status: Former smoker Hx Alcohol Use: No Hx Substance Use: No Preferred Language: Iranian Communication Ability: Effective 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 The left eye was 20/70 on the near card with correction. Motility was unremarkable. Pen light exam reveals the right pupil is fixed and dilated while the left pupil is peaked superiorly with a superior iridotomy and minimally reactive. The right eye has a tube shunt inferiorly, the lens implant appears to either be an anterior chamber lens or a posterior chamber lens which has subluxated in to the anterior chamber. The right cornea is diffusely hazy. The conjunctive is normal without evidence of inflammation or infection. The fundus examination is difficult on the right due to the corneal clouding but shows wide spread drusen, large floaters, and normal retinal vessels. The optic nerve had good pink color, with no swelling and moderate cupping. In the left eye the fundus exam reveals a largely cupped optic nerve perhaps with mild some pallor but with no swelling. The retinal vessels are normal, there were drusen and pigmentary changes in the macula. Results & Data Vital Signs (Past 12 Hours) Vital Signs Temp Pulse Resp BP BP Pulse Ox O2 Del Method 05/22/23 15:48 36.5 C 81 16 120/64 100 Nasal Cannula 05/22/23 11:07 36.8 C 84 18 118/65 97 Room Air 05/22/23 08:02 36.8 C 88 16 141/66 H 97 Room Air 05/22/23 07:20 Nasal Cannula 05/22/23 06:39 36.6 C 80 18 141/80 H 95 Nasal Cannula O2 Flow Rate 05/22/23 15:48 2 05/22/23 11:07 05/22/23 08:02 05/22/23 07:20 2 05/22/23 06:39 2
[2023-05-22] MEDS: SIMVASTATIN 40 MG TAB PO SCH (20:44)
[2023-05-22] MEDS: EZETIMIBE 10 MG TAB PO SCH (20:45)
[2023-05-22] MEDS: TRAVOPROST Z 0.004% OPH SOLN 2.5 ML BTL OPB SCH (20:48)
[2023-05-23] MEDS: ACETAMINOPHEN 500 MG TAB PO SCH ×4 (00:48→21:45)
[2023-05-23 06:52] LABS: Hemoglobin 8.8 g/dl (14.0-18.0); Mean Corpuscular Hemoglobin 27.5 pg (25.0-34.0); Mean Corpuscular Hgb Conc 31.4 g/dL (32.0-36.0); Mean Corpuscular Volume 87.5 fL (80.0-100.0); Mean Platelet Volume 11.3 fL (9.4-12.4); Platelet Count 138 K/uL (130-400); RDW Coefficient of Variation 17.2 % (11.5-14.5); RDW Standard Deviation 55.6 fL (36.4-46.3); White Blood Count 5.08 K/ul (4.8-10.8)
[2023-05-23 07:10] LABS: BUN Creatinine Ratio 18.2 (10-20); Creatinine Clr Calc Pharmacy 58.3 ml/min; Est GFR (African American) 71.1 ml/min; Est GFR (Non-African American) 61.3 ml/min; Potassium 3.6 mmol/L (3.5-5.1)
[2023-05-23 07:21] LABS: INR 2.7 (0.9-1.1); Prothrombin Time 27.8 Seconds (9.0-12.0)
[2023-05-23] MEDS: SOTALOL HCL 80 MG TAB PO SCH ×2 (08:02→21:35)
[2023-05-23] MEDS: FUROSEMIDE 40 MG TAB PO SCH (08:02)
[2023-05-23] MEDS: BRIMONIDINE TARTRATE 0.2% 5ML OPL SCH ×2 (08:02→21:36)
[2023-05-23] MEDS: DORZOLAMIDE/TIMOLOL 22.3/6.8MG/ML 10 ML BTL OPL SCH ×2 (08:02→21:36)
[2023-05-23] MEDS: METOPROLOL SUCC 50MG EXT REL TAB PO SCH ×2 (08:02→21:35)
[2023-05-23] MEDS: diazePAM 2 MG TABLET PO SCH ×2 (08:02→21:45)
[2023-05-23] MEDS: TERAZOSIN HCL 1 MG CAP PO SCH (08:03)
[2023-05-23] MEDS: SPIRONOLACTONE 12.5 MG TAB PO SCH (08:03)
--- NOTE | 2023-05-23 08:28 | Hospitalist Progress Note ---
Date of Service May 23, 2023 Assessment & Plan (1) Lumbago: Plan: Lumbago Ambulatory dysfunction --Lumbar Xray:. No acute lumbar spine fracture. No change in appearance of the lumbar spine. Moderate multilevel facet arthrosis and degenerative disc disease. --Lumbar CT from 04/26/23:No acute fracture or subluxation of the lumbar spine identified. Multilevel degenerative changes as described above. There is mild prevertebral edema again at L1 which is favored to be on a degenerative basis and is unchanged from prior. Developing discitis/osteomyelitis considered less likely. Partially imaged right pleural effusion redemonstrated. 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 Tramadol for breakthrough. Moving more today. (2) Vision loss: Plan: Longstanding history of receiving injections in his eyes to prevent blindness. Known glaucoma, and he has been continued on home eyedrops. 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 Woke up unable to see from right eye and now partial vision loss reported in the left eye. Patient does have atrial fibrillation but INR is therapeutic. CTA head neck/CT brain obtained to rule out stroke. No headache, ESR is elevated, seen by ophtho - not believed to be TA. As per ophthalmology - The patient has numerous long standing ocular pathologies including macular degeneration, glaucoma, complicated cataract surgery, and corneal disease. 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 The use frequent artificial tears (Q4hrs) may alleviate this to some extent. It is difficult at the bedside and with limited history to determine with any certainty the cause of his most recent vision changes. There does not appear to be any evidence of an arteritic optic neuropathy due to temporal arteritis given the lack of optic nerve swelling or hemorrhaging. It does not appear that there is any urgent problem requiring treatment while in the hospital and follow up as an outpatient with Dr. Rosenbaum would be reasonable. Further workup as needed pending neurology recommendations. Coumadin is therapeutic, cont ASA and statin as currently taking. (3) Hypoxia: Plan: Not on oxygen at home. Wean as tolerated. Chest x-ray obtained - shows pulm vasc. congestion. will give small dose extra lasix, cont. to closely monitor (4) DM2 (diabetes mellitus, type 2): Plan: DM Type II, chronic, stable. Will hold oral diabetic meds Last HbA1c:7.3 ISS, basal Insulin, Accu checks, Diabetic diet Monitor BGs (5) [facility] current use of anticoagulant: Plan: Cont. warfarin, monitor INR. Trend daily and adjust. (6) Atrial fibrillation: Plan: persistent, stable. Cont metoprolol and coumadin per home regimen. 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 Cont current therapy (8) S/P AVR: Plan: DVT Px: Coumadin--INR therapeutic CODE STATUS Full code Disposition: per PT/OT, CM involved - plan for rehab Admission and Anticipated Discharge Date Admission Date: May 21, 2023 Subjective 83 yo M presents with R lower back pain Doing better with movement today. Able to get out of bed to chair with assistance Yesterday reported losing vision totally in his right eye overnight (was partially blind from h/o vitreous hemorrhage already) Pt follows with his card puncher Dr. Rosenbaum, and was seen by Dr. Serrano in the hospital The patient denies any headaches or eye pain reports no change in vision from yesterday. Review of Systems Review of Systems: All systems reviewed & are unremarkable except as noted in Subjective Physical Exam Physical Exam: CONSTITUTIONAL: WNWD, M in NAD EYES: normal conjunctivae, no scleral icterus ENT: external ear and nose normal, MMM NECK: supple RESPIRATORY: clear to auscultation bilaterally, no crackles, rales or wheezes, normal respiratory effort CARDIOVASCULAR: regular rate and rhythm, S1 and 2 heard without murmurs CHEST: inspection of chest normal GASTROINTESTINAL: soft, nontender, ND, no guarding MUSCULOSKELETAL: moves extremities however somewhat difficult to move d/t back pain (seen standing up w/ walker w/ OT and sitting down) SKIN: warm and dry NEURO/ PSYCH: alert cooperative and oriented to person, place and time. Euthymic mood, No facial palsy, no dysarthria. normal speech, no tremor, moves extremities Results & Data Results & Data Vital Signs (Past 12 Hours) Vital Signs Temp Pulse Pulse Resp BP Pulse Ox O2 Del Method 05/23/23 07:37 73 05/23/23 07:34 Nasal Cannula 05/23/23 07:18 36.5 C 65 18 134/70 99 Nasal Cannula 05/23/23 04:55 36.3 C L 70 18 137/53 L 100 Nasal Cannula 05/23/23 01:10 80 05/23/23 00:51 36.4 C L 70 18 120/61 99 Nasal Cannula 05/23/23 00:18 Nasal Cannula O2 Flow Rate 05/23/23 07:37 05/23/23 07:34 2 05/23/23 07:18 2 05/23/23 04:55 2 05/23/23 01:10 05/23/23 00:51 2 05/23/23 00:18 2 Laboratory Results 05/23/23 05/23/23 05/22/23 Range/Units 08:02 05:29 20:11 WBC 5.08 (4.8-10.8) K/ul RBC 3.20 L (4.70-6.10) M/uL Hgb 8.8 L (14.0-18.0) g/dl Hct 28.0 L (42.0-52.0) % MCV 87.5 (80.0-100.0) fL MCH 27.5 (25.0-34.0) pg MCHC 31.4 L (32.0-36.0) g/dL RDW Std Deviation 55.6 H (36.4-46.3) fL RDW Coeff of Radha 17.2 H (11.5-14.5) % Plt Count 138 (130-400) K/uL MPV 11.3 (9.4-12.4) fL ESR (0-20) mm/hr PT 27.8 H (9.0-12.0) Seconds INR 2.7 H (0.9-1.1) Sodium 138 (136-145) mmol/L Potassium 3.6 (3.5-5.1) mmol/L Chloride 105 (98-107) mmol/L Carbon Dioxide 27 (21-32) mmol/L Anion Gap 6 (3-11) BUN 20 (6-23) mg/dl Creatinine 1.10 (0.6-1.4) mg/dl Est Cr Clr Drug Dosing 58.3 ml/min Est GFR ( Amer) 71.1 ml/min Est GFR (Non-Af Amer) 61.3 ml/min BUN/Creatinine Ratio 18.2 (10-20) Glucose 94 (70-99(Fasting)) mg/dl POC Glucose 115 H 109 H (70-99) mg/dl Calcium 9.0 (8.6-10.3) mg/dl 05/22/23 05/22/23 05/22/23 Range/Units 16:44 16:06 11:28 WBC (4.8-10.8) K/ul RBC (4.70-6.10) M/uL Hgb (14.0-18.0) g/dl Hct (42.0-52.0) % MCV (80.0-100.0) fL MCH (25.0-34.0) pg MCHC (32.0-36.0) g/dL RDW Std Deviation (36.4-46.3) fL RDW Coeff of Radha (11.5-14.5) % Plt Count (130-400) K/uL MPV (9.4-12.4) fL ESR 94 H (0-20) mm/hr PT (9.0-12.0) Seconds INR (0.9-1.1) Sodium (136-145) mmol/L Potassium (3.5-5.1) mmol/L Chloride (98-107) mmol/L Carbon Dioxide (21-32) mmol/L Anion Gap (3-11) BUN (6-23) mg/dl Creatinine (0.6-1.4) mg/dl Est Cr Clr Drug Dosing ml/min Est GFR ( Amer) ml/min Est GFR (Non-Af Amer) ml/min BUN/Creatinine Ratio (10-20) Glucose (70-99(Fasting)) mg/dl POC Glucose 102 H 172 H (70-99) mg/dl Calcium (8.6-10.3) mg/dl Medications Administered Current Inpatient Medications Acetaminophen (Acetaminophen 500 Mg Tab) 1,000 mg PO Q8H [facility] Stop: 06/21/23 08:44 Last Admin: 05/23/23 08:02 Dose: 1,000 mg Allopurinol (Allopurinol 100 Mg Tab) 200 mg PO Q2D@0900 [facility] Stop: 06/19/23 11:59 Last Admin: 12/05/23 09:14 Dose: 200 mg Aspirin (Aspirin 81 Mg Chew) 81 mg PO MoWeFr@0900 [facility] Stop: 06/20/23 08:59 Last Admin: 05/21/23 08:32 Dose: 81 mg Brimonidine Tartrate (Brimonidine Tartrate 0.2% 5ml) 1 drops OPL BID [facility] Stop: 06/19/23 20:59 Last Admin: 05/23/23 08:02 Dose: 1 drops Dextrose (Dextrose 50% 50 Ml Syringe) 25 - 50 ml IV UD PRN; Protocol PRN Reason: Hypoglycemia Protocol Stop: 06/19/23 11:54 Diazepam (Diazepam 2 Mg Tablet) 2 mg PO BID [facility] Stop: 06/21/23 08:59 Last Admin: 05/23/23 08:02 Dose: 2 mg Dorzolamide/Timolol (Dorzolamide/Timolol 22.3/6.8mg/Ml 10 Ml Btl) 1 drops OPL BID [facility] Stop: 06/19/23 20:59 Last Admin: 05/23/23 08:02 Dose: 1 drops Ezetimibe (Ezetimibe 10 Mg Tab) 10 mg PO HS [facility] Stop: 06/19/23 20:59 Last Admin: 05/22/23 20:45 Dose: 10 mg Furosemide (Furosemide 40 Mg Tab) 40 mg PO QAM [facility] Stop: 06/20/23 08:59 Last Admin: 05/23/23 08:02 Dose: 40 mg Glucagon (Glucagon For Inj 1 Mg Vial) 1 mg SQ UD PRN; Protocol PRN Reason: Hypoglycemia Protocol Stop: 06/19/23 11:54 Glucose (Glucose 10 Tab/Tube) 4 - 8 tab PO UD PRN; Protocol PRN Reason: Hypoglycemia Treatment Stop: 06/19/23 11:54 Glucose (Glucose 40% Gel 15 Gm Tube) 15 - 30 gm PO UD PRN; Protocol PRN Reason: Hypoglycemia Protocol Stop: 06/19/23 11:54 Insulin Aspart (Insulin Aspart Per Unit Charge) 0 units SC ACHS [facility] Stop: 06/20/23 20:59 Last Admin: 05/22/23 20:45 Dose: Not Given Insulin Glargine (Lantus Per Unit Charge) 15 units SQ BID [facility] Stop: 06/19/23 11:54 Last Admin: 05/22/23 20:42 Dose: 15 units Metoprolol Succinate (Metoprolol Succ 50mg Ext Rel Tab) 100 mg PO BID [facility] Stop: 06/19/23 20:59 Last Admin: 05/23/23 08:02 Dose: 100 mg Miscellaneous (Carbohydrates For Hypoglycemia ) 15 - 30 gm PO UD PRN PRN Reason: Hypoglycemia Protocol Stop: 06/19/23 11:54 Morphine Sulfate (Morphine Sulfate 2 Mg/Ml Carp) 2 mg IV Q6H PRN PRN Reason: Severe Pain (Scale 7, 8, 9,10) Stop: 06/03/23 11:54 Multi-Ingredient Cream (Eucerin Cr 120 Gm Jar) 1 appln EXT BID PRN PRN Reason: Affected Skin Folds Stop: 06/19/23 15:49 Nitroglycerin (Nitroglycerin Sl 0.4 Mg/Tab Tab) 0.4 mg SL PRN PRN PRN Reason: Chest Pain Stop: 06/19/23 11:54 Polyethylene Glycol (Polyethylene (Miralax) 17 Gm Pack) 17 gm PO DAILY PRN PRN Reason: Constipation Stop: 06/19/23 11:54 Simvastatin (Simvastatin 40 Mg Tab) 40 mg PO HS [facility]; Protocol Stop: 06/19/23 20:59 Last Admin: 05/22/23 20:44 Dose: 40 mg Sotalol HCl (Sotalol Hcl 80 Mg Tab) 120 mg PO BID [facility] Stop: 06/19/23 20:59 Last Admin: 05/23/23 08:02 Dose: 120 mg Spironolactone (Spironolactone 12.5 Mg Tab) 12.5 mg PO DAILY [facility] Stop: 06/20/23 08:59 Last Admin: 05/23/23 08:03 Dose: 12.5 mg Terazosin HCl (Terazosin Hcl 1 Mg Cap) 2 mg PO DAILY [facility] Stop: 06/20/23 08:59 Last Admin: 05/23/23 08:03 Dose: 2 mg Tramadol HCl (Tramadol Hcl 50 Mg Tablet) 50 mg PO Q4H PRN PRN Reason: breakthorugh pain Stop: 06/21/23 08:34 Last Admin: 05/22/23 20:42 Dose: 50 mg Travoprost (Travoprost Z 0.004% Oph Soln 2.5 Ml Btl) 1 drops OPB HS [facility] Stop: 06/19/23 20:59 Last Admin: 05/22/23 20:48 Dose: Not Given Warfarin Sodium (Warfarin Sod 4 Mg Tab) 4 mg PO DAILY@1600 [facility] Stop: 06/20/23 19:34 Last Admin: 05/21/23 20:59 Dose: Not Given (6) Atrial fibrillation Atrial fibrillation type: persistent (not longstanding) Qualified Code(s): I48.19 - Other persistent atrial fibrillation
[2023-05-23] MEDS: LANTUS PER UNIT CHARGE SQ SCH ×2 (08:53→21:46)
[2023-05-23] MEDS: INSULIN ASPART PER UNIT CHARGE SC SCH ×4 (08:53→21:37)
[2023-05-23] MEDS: ASPIRIN 81 MG CHEW PO SCH (09:25)
--- NOTE | 2023-05-23 15:28 | Electrocardiogram Report ---
Test Reason : Blood Pressure : / mmHG Vent. Rate : 072 BPM Atrial Rate : 078 BPM P-R Int : 000 ms QRS Dur : 094 ms QT Int : 444 ms P-R-T Axes : 000 026 097 degrees QTc Int : 486 ms Atrial fibrillation with premature ventricular or aberrantly conducted complexes Nonspecific T wave abnormality Prolonged QT Abnormal ECG When compared with ECG of 23-APR-2023 04:21, No significant change was found Confirmed by Andrew Kim ([id number]) on 05/23/2023 3:27:39 PM Referred By: REFERRED SELF Confirmed By:Andrew Kim
[2023-05-23] MEDS ORDERED: FUROSEMIDE INJ 20 MG/2 ML VIAL IV ONE (16:53)
[2023-05-23] MEDS ORDERED: POTASSIUM CHLORIDE CRTAB 20 MEQ TABCR PO STA (16:54)
--- NOTE | 2023-05-23 19:26 | Neurology Consultation ---
Date of Consultation May 23, 2023 Assessment & Plan (1) Vision loss: Vision loss is reported in both eyes Seems to be without report of pain Exam limited by chronic vision loss Unable to obtain MRI Continue current therapies Recommend initiate steroid tx for painless vision loss in setting of elevated ESR Trend ESR Continue to monitor for s/s of infection or malignancy Telehealth Consultation Telehealth Information Telehealth Information: I performed this visit using a real-time telehealth connection between my location and the patients location ([facility]). After connecting through interactive tele-video, patient was identified by name and date of and/or wristband check.Patient (or authorized healthcare community health representative) was informed that this was a telemedicine visit and it was being conducted confidentially over secure lines. My office door was closed and no one else was present in the room with me.Patient (or authorized healthcare community health representative) provided consent to proceed with the visit, expressed an understanding of privacy and security of the telemedicine visit, and gave permission to have a hospital community health representative in the room in order to assist with the visit and to conduct portions of the visit, as needed. I informed the patient (or authorized healthcare community health representative) that I reviewed their record and presented the opportunity for them to ask any questions regarding the visit today. The patient agreed to participate. History of Present Illness Reason for Consultation: Concern for stroke Requesting Physician: Dr. Trivedi Attending Physician: Gabino Trivedi MD History of Present Illness 83 yo male reports worsening chronic vision loss in right eye as well as left. Was seen by ophthalmology. I have performed televideo consultation. Family at bedside all questions answered./ He remains able to see and name objects. I have explained that unfortunately without MRI imaging it will be unlikely to diagnose small vessel ischemic stroke that may account for new worsening vision loss. He does not he wears a contact lens that he does not have with him now. He is fully anticoagulated. I have reviewed CTA imaging which appears without evidence of significant/flow limiting stenosis or large vessel occlusion. At this time he denies pain on extraocular movements. No reported cephalgia or cervicalgia. Denies chest pain/palpitations or shortness of breath. No reported changes in hearing dizziness syncope seizure like activity or paresthesia. Denies recent fevers chills nausea vomiting changes in bowels or bladder. Denies recent medication changes, recent illness or sick contacts, no reported recent travel. Notably ESR elevated with normal thrombocyte count. Consider addition of steroids for concern of GCA, trend inflammatory markers. Allergies Allergy/AdvReac Type Severity Reaction Status Date / Time niacin Allergy Intermediate HIVES Verified 04/21/23 09:30 Home Medications Medication Instructions Recorded Confirmed Type nitroglycerin 0.4 mg sublingual 0.4 mg sublingual PRN PRN Chest 12/09/09 05/20/23 History tablet (Nitrostat) Pain ##0 terazosin 2 mg capsule 2 mg PO DAILY ##90 12/07/13 05/20/23 History bismuth subsalicylate 525 mg/15 mL 525 mg PO DAILY PRN Diarrhea ##0 10/13/15 05/20/23 History oral suspension travoprost 0.004 % eye drops 1 drp OPB HS #1 btl 10/13/15 05/20/23 History allopurinol 100 mg tablet 200 mg PO Q2D 04/21/23 05/20/23 History aspirin 81 mg chewable tablet 81 mg PO .MON/SUN/Sun04/21/23 05/20/23 History brimonidine 0.2 % eye drops 1 drp OPL BID 04/21/23 05/20/23 History dorzolamide-timolol (PF) 2 %-0.5 % 1 drp OPL BID 04/21/23 05/20/23 History eye drops in a dropperette ezetimibe 10 mg-simvastatin 40 mg 1 tab PO HS 04/21/23 05/20/23 History tablet furosemide 40 mg tablet 40 mg PO QAM 04/21/23 05/20/23 History insulin aspart U-100 100 unit/mL See Rx Instructions .Route .COMPLEX 04/21/23 05/20/23 History subcutaneous solution (Novolog U-100 Insulin aspart) insulin detemir U-100 100 unit/mL 84 unit subcut HS 04/21/23 05/20/23 History subcutaneous solution (Levemir U-100 Insulin) metformin 1,000 mg tablet 1,000 mg PO BID 04/21/23 05/20/23 History metoprolol succinate 50 mg 100 mg (2 x 50 mg) PO BID 30 days 05/04/23 05/20/23 Rx tablet,extended release 24 hr #120 tabs spironolactone 25 mg tablet 12.5 mg (1/2 x 25 mg) PO DAILY 30 05/04/23 05/20/23 Rx days #15 tabs warfarin 3 mg tablet 3 mg PO DAILY #30 tabs 05/04/23 Rx sotalol 120 mg tablet 120 mg PO BID 05/20/23 05/20/23 History Patient History Medical History (Updated 05/22/23 @ 15:40 by Amisha Matos DO) Lumbago Social History Smoking Status: Former smoker Hx Alcohol Use: No Hx Substance Use: No Preferred Language: [place]ian Communication Ability: Effective Shield Runner Required: No Beliefs That Will Affect Care: None Current Living Situation: Family Current Living Situation Comment: Lives with jennifer Dixon Other Information That Helps Us Care for You: No Feels Safe at Home: Yes Safety Concerns: Feels Safe At This Time Assistive Devices: None Physical Exam Neurological Examination: Mental Status: Awake and alert. Oriented to person, place, and time. Fluency naming repetition and comprehension appear grossly intact. Affect remains appropriate. CN testing: I: Denies changes in ability to smell II:Reports worsening vision changes III/IV/: No evidence of gaze preference, hippus, nystagmus or roving eye movements V: Facial sensation reportedly grossly intact to light touch bilaterally VII: Facial movements appear without evidence of asymmetry VIII: Hearing appears grossly intact to loud voice bilaterally IX/X: Palate appears to elevate symmetrically XI: Shoulder shrug appears symmetric/ grossly intact bilaterally XII: Tongue protrudes midline without evidence of biting Motor exam: Strength appears grossly intact/symmetric in all extremities Sensory: Sensation is reportedly grossly intact throughout Coordination: Deferred Reflexes: Deferred Gait: Deferred Results & Data Vital Signs (Past 12 Hours) Vital Signs Temp Pulse Pulse Resp BP Pulse Ox O2 Del Method 05/23/23 15:36 72 05/23/23 15:22 36.4 C L 94 H 18 123/55 L 97 Nasal Cannula 05/23/23 10:58 36.7 C 72 18 112/61 98 Nasal Cannula 05/23/23 07:37 73 05/23/23 07:34 Nasal Cannula O2 Flow Rate 05/23/23 15:36 05/23/23 15:22 2 05/23/23 10:58 2 05/23/23 07:37 05/23/23 07:34 2 Laboratory Results Abnormal lab results 05/22/23 05/23/23 05/23/23 Range/Units 20:11 05:29 08:02 RBC 3.20 L (4.70-6.10) M/uL Hgb 8.8 L (14.0-18.0) g/dl Hct 28.0 L (42.0-52.0) % MCHC 31.4 L (32.0-36.0) g/dL RDW Std Deviation 55.6 H (36.4-46.3) fL RDW Coeff of Radha 17.2 H (11.5-14.5) % PT 27.8 H (9.0-12.0) Seconds INR 2.7 H (0.9-1.1) POC Glucose 109 H 115 H (70-99) mg/dl 05/23/23 Range/Units 11:53 RBC (4.70-6.10) M/uL Hgb (14.0-18.0) g/dl Hct (42.0-52.0) % MCHC (32.0-36.0) g/dL RDW Std Deviation (36.4-46.3) fL RDW Coeff of Radha (11.5-14.5) % PT (9.0-12.0) Seconds INR (0.9-1.1) POC Glucose 127 H (70-99) mg/dl Medications Administered Home Medications Medication Instructions Recorded Confirmed Last Taken nitroglycerin 0.4 mg sublingual 0.4 mg sublingual PRN PRN Chest 12/09/09 05/20/23 04/20/23 tablet (Nitrostat) Pain ##0 terazosin 2 mg capsule 2 mg PO DAILY ##90 12/07/13 05/20/23 04/20/23 bismuth subsalicylate 525 mg/15 mL 525 mg PO DAILY PRN Diarrhea ##0 10/13/15 05/20/23 04/20/23 oral suspension travoprost 0.004 % eye drops 1 drp OPB HS #1 btl 10/13/15 05/20/23 04/20/23 allopurinol 100 mg tablet 200 mg PO Q2D 04/21/23 05/20/23 04/20/23 aspirin 81 mg chewable tablet 81 mg PO .SUN/SUN/Sun04/21/23 05/20/23 04/20/23 brimonidine 0.2 % eye drops 1 drp OPL BID 04/21/23 05/20/23 04/20/23 dorzolamide-timolol (PF) 2 %-0.5 % 1 drp OPL BID 04/21/23 05/20/23 04/20/23 eye drops in a dropperette ezetimibe 10 mg-simvastatin 40 mg 1 tab PO HS 04/21/23 05/20/23 04/20/23 tablet furosemide 40 mg tablet 40 mg PO QAM 04/21/23 05/20/23 04/20/23 insulin aspart U-100 100 unit/mL See Rx Instructions .Route .COMPLEX 04/21/23 05/20/23 04/20/23 subcutaneous solution (Novolog U-100 Insulin aspart) insulin detemir U-100 100 unit/mL 84 unit subcut HS 04/21/23 05/20/23 04/20/23 subcutaneous solution (Levemir U-100 Insulin) metformin 1,000 mg tablet 1,000 mg PO BID 04/21/23 05/20/23 04/20/23 metoprolol succinate 50 mg 100 mg (2 x 50 mg) PO BID 30 days 05/04/23 05/20/23 Unknown tablet,extended release 24 hr #120 tabs spironolactone 25 mg tablet 12.5 mg (1/2 x 25 mg) PO DAILY 30 05/04/23 05/20/23 Unknown days #15 tabs warfarin 3 mg tablet 3 mg PO DAILY #30 tabs 05/04/23 Unknown sotalol 120 mg tablet 120 mg PO BID 05/20/23 05/20/23 Unknown Active Medications Generic Name Dose Route Start Last Admin Trade Name Freq PRN Reason Stop Dose Admin Acetaminophen 1,000 mg 05/22/23 08:45 05/23/23 16:46 Acetaminophen 500 Mg Tab PO 06/21/23 08:44 1,000 mg Q8H [facility] Administration Allopurinol 200 mg 05/20/23 12:00 05/22/23 09:14 Allopurinol 100 Mg Tab PO 06/19/23 11:59 200 mg Q2D@0900 [facility] Administration Aspirin 81 mg 05/21/23 09:00 05/23/23 09:25 Aspirin 81 Mg Chew PO 06/20/23 08:59 81 mg MoWeFr@0900 RONAN Administration Brimonidine Tartrate 1 drops 05/20/23 21:00 05/23/23 08:02 Brimonidine Tartrate 0.2% 5ml OPL 06/19/23 20:59 1 drops BID RONAN Administration Diazepam 2 mg 05/22/23 09:00 05/23/23 08:02 Diazepam 2 Mg Tablet PO 06/21/23 08:59 2 mg BID RONAN Administration Dorzolamide/Timolol 1 drops 05/20/23 21:00 05/23/23 08:02 Dorzolamide/Timolol 22.3/6.8mg/Ml 10 Ml Btl OPL 06/19/23 20:59 1 drops BID RONAN Administration Ezetimibe 10 mg 05/20/23 21:00 05/22/23 20:45 Ezetimibe 10 Mg Tab PO 06/19/23 20:59 10 mg HS RONAN Administration Furosemide 40 mg 05/21/23 09:00 05/23/23 08:02 Furosemide 40 Mg Tab PO 06/20/23 08:59 40 mg QAM RONAN Administration Insulin Aspart 0 units 05/21/23 21:00 05/23/23 17:55 Insulin Aspart Per Unit Charge SC 06/20/23 20:59 3 units ACHS RONAN Administration Insulin Glargine 15 units 05/20/23 11:55 05/23/23 08:53 Lantus Per Unit Charge SQ 06/19/23 11:54 15 units BID RONAN Administration Metoprolol Succinate 100 mg 05/20/23 21:00 05/23/23 08:02 Metoprolol Succ 50mg Ext Rel Tab PO 06/19/23 20:59 100 mg BID RONAN Administration Simvastatin 40 mg 05/20/23 21:00 05/22/23 20:44 Simvastatin 40 Mg Tab PO 06/19/23 20:59 40 mg HS RONAN Administration Protocol Sotalol HCl 120 mg 05/20/23 21:00 05/23/23 08:02 Sotalol Hcl 80 Mg Tab PO 06/19/23 20:59 120 mg BID RONAN Administration Spironolactone 12.5 mg 05/21/23 09:00 05/23/23 08:03 Spironolactone 12.5 Mg Tab PO 06/20/23 08:59 12.5 mg DAILY RONAN Administration Terazosin HCl 2 mg 05/21/23 09:00 05/23/23 08:03 Terazosin Hcl 1 Mg Cap PO 06/20/23 08:59 2 mg DAILY RONAN Administration Tramadol HCl 50 mg 05/22/23 08:35 05/22/23 20:42 Tramadol Hcl 50 Mg Tablet PO 06/21/23 08:34 50 mg Q4H PRN Administration breakthorugh pain Travoprost 1 drops 05/20/23 21:00 05/22/23 20:48 Travoprost Z 0.004% Oph Soln 2.5 Ml Btl OPB 06/19/23 20:59 Not Given HS RONAN Warfarin Sodium 4 mg 05/21/23 19:35 05/21/23 20:59 Warfarin Sod 4 Mg Tab PO 06/20/23 19:34 Not Given DAILY@1600 RONAN
[2023-05-23] MEDS: SIMVASTATIN 40 MG TAB PO SCH (21:36)
[2023-05-23] MEDS: EZETIMIBE 10 MG TAB PO SCH (21:36)
[2023-05-23] MEDS: TRAVOPROST Z 0.004% OPH SOLN 2.5 ML BTL OPB SCH (21:36)
[2023-05-24 06:12] LABS: BUN Creatinine Ratio 19.4 (10-20); Creatinine Clr Calc Pharmacy 65.4 ml/min; Est GFR (African American) 81.7 ml/min; Est GFR (Non-African American) 70.5 ml/min; Magnesium 1.2 mg/dl (1.7-2.4); Phosphorus 2.9 mg/dl (2.5-4.9)
[2023-05-24 06:23] LABS: INR 2.3 (0.9-1.1); Prothrombin Time 24.3 Seconds (9.0-12.0)
[2023-05-24] MEDS ORDERED: MAGNESIUM SULFATE / D5W 1 GM/100 ML BAG IV ONE ×2 (07:20→11:31)
[2023-05-24] MEDS: ACETAMINOPHEN 500 MG TAB PO SCH ×3 (08:09→21:20)
[2023-05-24] MEDS: FUROSEMIDE 40 MG TAB PO SCH (08:11)
[2023-05-24] MEDS: BRIMONIDINE TARTRATE 0.2% 5ML OPL SCH ×2 (08:11→21:18)
[2023-05-24] MEDS: allopurinoL 100 MG TAB PO SCH (08:11)
[2023-05-24] MEDS: DORZOLAMIDE/TIMOLOL 22.3/6.8MG/ML 10 ML BTL OPL SCH ×2 (08:11→21:18)
[2023-05-24] MEDS: METOPROLOL SUCC 50MG EXT REL TAB PO SCH ×2 (08:11→21:19)
[2023-05-24] MEDS: SOTALOL HCL 80 MG TAB PO SCH ×2 (08:11→21:19)
[2023-05-24] MEDS: TERAZOSIN HCL 1 MG CAP PO SCH (08:12)
[2023-05-24] MEDS: SPIRONOLACTONE 12.5 MG TAB PO SCH (08:12)
[2023-05-24] MEDS: diazePAM 2 MG TABLET PO SCH ×2 (08:13→21:18)
[2023-05-24] MEDS: INSULIN ASPART PER UNIT CHARGE SC SCH ×4 (09:06→21:29)
[2023-05-24] MEDS: LANTUS PER UNIT CHARGE SQ SCH ×2 (09:28→21:20)
[2023-05-24] MEDS: predniSONE 20 MG TAB PO SCH (10:29)
[2023-05-24] MEDS: WARFARIN SOD 4 MG TAB PO SCH (16:01)
--- NOTE | 2023-05-24 16:45 | Hospitalist Progress Note ---
Date of Service May 24, 2023 Assessment & Plan (1) Lumbago: Plan: Lumbago Ambulatory dysfunction --Lumbar Xray:. No acute lumbar spine fracture. No change in appearance of the lumbar spine. Moderate multilevel facet arthrosis and degenerative disc disease. --Lumbar CT from 04/26/23:No acute fracture or subluxation of the lumbar spine identified. Multilevel degenerative changes as described above. There is mild prevertebral edema again at L1 which is favored to be on a degenerative basis and is unchanged from prior. Developing discitis/osteomyelitis considered less likely. Partially imaged right pleural effusion redemonstrated. 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 Tramadol for breakthrough. Moving more now. 05/24 Started on prednisone d/t vision changes. Antiinflammatory effect can possibly help with back pain as well. (2) Vision loss: Plan: Longstanding history of receiving injections in his eyes to prevent blindness. Known glaucoma, and he has been continued on home eyedrops. 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 Woke up unable to see from right eye and now partial vision loss reported in the left eye. Patient does have atrial fi brillation but INR is therapeutic. CTA head neck/CT brain obtained to rule out stroke. No headache, ESR is elevated, seen by ophtho - not believed to be TA. As per ophthalmology - The patient has numerous long standing ocular pathologies including macular degeneration, glaucoma, complicated cataract surgery, and corneal disease. 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 The use frequent artificial tears (Q4hrs) may alleviate this to some extent. It is difficult at the bedside and with limited history to determine with any certainty the cause of his most recent vision changes. There does not appear to be any evidence of an arteritic optic neuropathy due to temporal arteritis given the lack of optic nerve swelling or hemorrhaging. It does not appear that there is any urgent problem requiring treatment while in the hospital and follow up as an outpatient with Dr. Rosenbaum would be reasonable. Further workup as needed pending neurology recommendations. Coumadin is therapeutic, cont ASA and statin as currently taking. Per neurology - Recommend initiate steroid tx for painless vision loss in setting of elevated ESR, Trend ESR. Discussed w/ neurology and repeated ESR which is still elevated. Started prednisone 60 daily. Cont. to monitor. (3) Hypoxia: Plan: Not on oxygen at home. Wean as tolerated. Chest x-ray obtained - shows pulm vasc. congestion. gave small dose extra lasix, cont. to closely monitor Currently on RA, saturating 95% (4) DM2 (diabetes mellitus, type 2): Plan: DM Type II, chronic, stable. Will hold oral diabetic meds Last HbA1c:7.3 ISS, basal Insulin, Accu checks, Diabetic diet Monitor BGs (5) half-way current use of anticoagulant: Plan: Cont. warfarin, monitor INR. Trend daily and adjust. (6) Atrial fibrillation: Plan: persistent, stable. Cont metoprolol and coumadin per home regimen. 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 Cont current therapy (8) S/P AVR: Plan: DVT Px: Coumadin--INR therapeutic CODE STATUS Full code Disposition: per PT/OT, CM involved - plan for rehab Admission and Anticipated Discharge Date Admission Date: May 21, 2023 Subjective 83 yo M presents with R lower back pain Doing better with movement however still has significant back pain and difficulty moving. Vision change about the same Pt follows with his bottle selector Dr. Rosenbaum, and was seen by Dr. Serrano in the hospital The patient denies any headaches or eye pain Review of Systems Review of Systems: All systems reviewed & are unremarkable except as noted in Subjective Physical Exam Physical Exam: CONSTITUTIONAL: WNWD, M in NAD EYES: normal conjunctivae, no scleral icterus ENT: external ear and nose normal, MMM NECK: supple RESPIRATORY: clear to auscultation bilaterally, no crackles, rales or wheezes, normal respiratory effort CARDIOVASCULAR: regular rate and rhythm, S1 and 2 heard without murmurs CHEST: inspection of chest normal GASTROINTESTINAL: soft, nontender, ND, no guarding MUSCULOSKELETAL: moves extremities however somewhat difficult to move d/t back pain SKIN: warm and dry NEURO/ PSYCH: alert cooperative and oriented to person, place and time. No facial palsy, no dysarthria. normal speech, no tremor, moves extremities Results & Data Results & Data Vital Signs (Past 12 Hours) Vital Signs Temp Pulse Pulse Resp BP Pulse Ox O2 Del Method 05/24/23 15:58 36.8 C 81 18 123/75 95 Room Air 05/24/23 14:56 83 05/24/23 12:20 36.6 C 59 L 18 157/85 H 93 Room Air 05/24/23 10:15 77 05/24/23 08:01 36.6 C 78 18 154/69 H 95 Room Air 05/24/23 07:50 Room Air Laboratory Results 05/24/23 05/24/23 05/24/23 Range/Units 12:11 08:17 05:36 ESR 121 H (0-20) mm/hr PT (9.0-12.0) Seconds INR (0.9-1.1) Sodium (136-145) mmol/L Potassium (3.5-5.1) mmol/L Chloride (98-107) mmol/L Carbon Dioxide (21-32) mmol/L Anion Gap (3-11) BUN (6-23) mg/dl Creatinine (0.6-1.4) mg/dl Est Cr Clr Drug Dosing ml/min Est GFR ( Amer) ml/min Est GFR (Non-Af Amer) ml/min BUN/Creatinine Ratio (10-20) Glucose (70-99(Fasting)) mg/dl POC Glucose 125 H 74 (70-99) mg/dl Calcium (8.6-10.3) mg/dl Phosphorus (2.5-4.9) mg/dl Magnesium (1.7-2.4) mg/dl 05/24/23 05/23/23 05/23/23 Range/Units 05:29 20:40 16:58 ESR (0-20) mm/hr PT 24.3 H (9.0-12.0) Seconds INR 2.3 H (0.9-1.1) Sodium 137 (136-145) mmol/L Potassium 4.0 (3.5-5.1) mmol/L Chloride 105 (98-107) mmol/L Carbon Dioxide 26 (21-32) mmol/L Anion Gap 6 (3-11) BUN 19 (6-23) mg/dl Creatinine 0.98 (0.6-1.4) mg/dl Est Cr Clr Drug Dosing 65.4 ml/min Est GFR ( Amer) 81.7 ml/min Est GFR (Non-Af Amer) 70.5 ml/min BUN/Creatinine Ratio 19.4 (10-20) Glucose 72 (70-99(Fasting)) mg/dl POC Glucose 132 H 89 (70-99) mg/dl Calcium 9.0 (8.6-10.3) mg/dl Phosphorus 2.9 (2.5-4.9) mg/dl Magnesium 1.2 L (1.7-2.4) mg/dl Medications Administered Current Inpatient Medications Acetaminophen (Acetaminophen 500 Mg Tab) 1,000 mg PO Q8H [facility]ONAN Stop: 06/21/23 08:44 Last Admin: 05/24/23 16:01 Dose: Not Given Allopurinol (Allopurinol 100 Mg Tab) 200 mg PO Q2D@0900 [facility] Stop: 06/19/23 11:59 Last Admin: 05/24/23 08:11 Dose: 200 mg Aspirin (Aspirin 81 Mg Chew) 81 mg PO MoWeFr@0900 [facility]ON[facility] Stop: 06/20/23 08:59 Last Admin: 05/23/23 09:25 Dose: 81 mg Brimonidine Tartrate (Brimonidine Tartrate 0.2% 5ml) 1 drops OPL BID RONAN Stop: 06/19/23 20:59 Last Admin: 05/24/23 08:11 Dose: 1 drops Dextrose (Dextrose 50% 50 Ml Syringe) 25 - 50 ml IV UD PRN; Protocol PRN Reason: Hypoglycemia Protocol Stop: 06/19/23 11:54 Diazepam (Diazepam 2 Mg Tablet) 2 mg PO BID RONAN Stop: 06/21/23 08:59 Last Admin: 05/24/23 08:13 Dose: 2 mg Dorzolamide/Timolol (Dorzolamide/Timolol 22.3/6.8mg/Ml 10 Ml Btl) 1 drops OPL BID RONAN Stop: 06/19/23 20:59 Last Admin: 05/24/23 08:11 Dose: 1 drops Ezetimibe (Ezetimibe 10 Mg Tab) 10 mg PO HS RONAN Stop: 06/19/23 20:59 Last Admin: 05/23/23 21:36 Dose: 10 mg Furosemide (Furosemide 40 Mg Tab) 40 mg PO QAM [facility]ONAN Stop: 06/20/23 08:59 Last Admin: 05/24/23 08:11 Dose: 40 mg Glucagon (Glucagon For Inj 1 Mg Vial) 1 mg SQ UD PRN; Protocol PRN Reason: Hypoglycemia Protocol Stop: 06/19/23 11:54 Glucose (Glucose 10 Tab/Tube) 4 - 8 tab PO UD PRN; Protocol PRN Reason: Hypoglycemia Treatment Stop: 06/19/23 11:54 Glucose (Glucose 40% Gel 15 Gm Tube) 15 - 30 gm PO UD PRN; Protocol PRN Reason: Hypoglycemia Protocol Stop: 06/19/23 11:54 Insulin Aspart (Insulin Aspart Per Unit Charge) 0 units SC ACHS [facility] Stop: 06/20/23 20:59 Last Admin: 05/24/23 13:08 Dose: Not Given Insulin Glargine (Lantus Per Unit Charge) 15 units SQ BID [facility] Stop: 06/19/23 11:54 Last Admin: 05/24/23 09:28 Dose: 15 units Metoprolol Succinate (Metoprolol Succ 50mg Ext Rel Tab) 100 mg PO BID [facility] Stop: 06/19/23 20:59 Last Admin: 05/24/23 08:11 Dose: 100 mg Miscellaneous (Carbohydrates For Hypoglycemia ) 15 - 30 gm PO UD PRN PRN Reason: Hypoglycemia Protocol Stop: 06/19/23 11:54 Morphine Sulfate (Morphine Sulfate 2 Mg/Ml Carp) 2 mg IV Q6H PRN PRN Reason: Severe Pain (Scale 7, 8, 9,10) Stop: 06/03/23 11:54 Last Admin: 05/24/23 11:59 Dose: 2 mg Multi-Ingredient Cream (Eucerin Cr 120 Gm Jar) 1 appln EXT BID PRN PRN Reason: Affected Skin Folds Stop: 06/19/23 15:49 Nitroglycerin (Nitroglycerin Sl 0.4 Mg/Tab Tab) 0.4 mg SL PRN PRN PRN Reason: Chest Pain Stop: 06/19/23 11:54 Pantoprazole Sodium (Pantoprazole 40 Mg Tab) [facility] [place]: 06/23/23 16:14 Polyethylene Glycol (Polyethylene (Miralax) 17 Gm Pack) 17 gm PO DAILY PRN PRN Reason: Constipation Stop: 06/19/23 11:54 Prednisone (Prednisone 20 Mg Tab) 60 mg PO QAM [facility] Stop: 01/06/24 08:59 Last Admin: 05/24/23 10:29 Dose: 60 mg Simvastatin (Simvastatin 40 Mg Tab) 40 mg PO [facility]; Protocol Stop: 06/19/23 20:59 Last Admin: 05/23/23 21:36 Dose: 40 mg Sotalol HCl (Sotalol Hcl 80 Mg Tab) 120 mg PO BID [facility] Stop: 06/19/23 20:59 Last Admin: 05/24/23 08:11 Dose: 120 mg Spironolactone (Spironolactone 12.5 Mg Tab) 12.5 mg PO DAILY [facility] Stop: 06/20/23 08:59 Last Admin: 05/24/23 08:12 Dose: 12.5 mg Terazosin HCl (Terazosin Hcl 1 Mg Cap) 2 mg PO DAILY [facility] Stop: 06/20/23 08:59 Last Admin: 05/24/23 08:12 Dose: 2 mg Tramadol HCl (Tramadol Hcl 50 Mg Tablet) 50 mg PO Q4H PRN PRN Reason: breakthorugh pain Stop: 06/21/23 08:34 Last Admin: 05/22/23 20:42 Dose: 50 mg Travoprost (Travoprost Z 0.004% Oph Soln 2.5 Ml Btl) 1 drops OPB HS [facility] Stop: 06/19/23 20:59 Last Admin: 05/23/23 21:36 Dose: 1 drops Warfarin Sodium (Warfarin Sod 4 Mg Tab) 4 mg PO DAILY@1600 [facility] Stop: 06/20/23 19:34 Last Admin: 05/24/23 16:01 Dose: 4 mg (6) Atrial fibrillation Atrial fibrillation type: persistent (not longstanding) Qualified Code(s): I48.19 - Other persistent atrial fibrillation
[2023-05-24] MEDS: PANTOprazole 40 MG TAB PO SCH (17:32)
[2023-05-24] MEDS: MAGNESIUM OXIDE 400 MG TAB PO SCH (21:18)
[2023-05-24] MEDS: EZETIMIBE 10 MG TAB PO SCH (21:19)
[2023-05-24] MEDS: SIMVASTATIN 40 MG TAB PO SCH (21:19)
[2023-05-24] MEDS: TRAVOPROST Z 0.004% OPH SOLN 2.5 ML BTL OPB SCH (21:20)
[2023-05-25 06:35] LABS: Hematocrit (blood only) 28.5 % (42.0-52.0); Hemoglobin 9.1 g/dl (14.0-18.0); Mean Corpuscular Hemoglobin 27.4 pg (25.0-34.0); Mean Corpuscular Hgb Conc 31.9 g/dL (32.0-36.0); Mean Corpuscular Volume 85.8 fL (80.0-100.0); Mean Platelet Volume 11.8 fL (9.4-12.4); Platelet Count 172 K/uL (130-400); RDW Coefficient of Variation 16.8 % (11.5-14.5); RDW Standard Deviation 52.7 fL (36.4-46.3); Red Blood Count 3.32 M/uL (4.70-6.10); White Blood Count 6.98 K/ul (4.8-10.8)
[2023-05-25 07:04] LABS: Calcium 9.2 mg/dl (8.6-10.3); Creatinine Clr Calc Pharmacy 63.4 ml/min; Est GFR (African American) 79.7 ml/min; Est GFR (Non-African American) 68.8 ml/min; Magnesium 1.7 mg/dl (1.7-2.4); Potassium 4.7 mmol/L (3.5-5.1)
[2023-05-25] MEDS: SOTALOL HCL 80 MG TAB PO SCH ×2 (09:53→20:22)
[2023-05-25] MEDS: FUROSEMIDE 40 MG TAB PO SCH (09:54)
[2023-05-25] MEDS: METOPROLOL SUCC 50MG EXT REL TAB PO SCH ×2 (09:54→20:21)
[2023-05-25] MEDS: PANTOprazole 40 MG TAB PO SCH (09:55)
[2023-05-25] MEDS: TERAZOSIN HCL 1 MG CAP PO SCH (09:55)
[2023-05-25] MEDS: predniSONE 20 MG TAB PO SCH (09:55)
[2023-05-25] MEDS: MAGNESIUM OXIDE 400 MG TAB PO SCH ×2 (09:55→20:20)
[2023-05-25] MEDS: SPIRONOLACTONE 12.5 MG TAB PO SCH (09:55)
[2023-05-25] MEDS: ACETAMINOPHEN 500 MG TAB PO SCH ×2 (10:02→18:22)
[2023-05-25] MEDS: diazePAM 2 MG TABLET PO SCH ×2 (10:03→20:26)
[2023-05-25] MEDS: BRIMONIDINE TARTRATE 0.2% 5ML OPL SCH ×2 (10:04→20:18)
[2023-05-25] MEDS: ASPIRIN 81 MG CHEW PO SCH (10:04)
[2023-05-25] MEDS: LANTUS PER UNIT CHARGE SQ SCH ×2 (10:06→22:49)
[2023-05-25] MEDS: DORZOLAMIDE/TIMOLOL 22.3/6.8MG/ML 10 ML BTL OPL SCH ×2 (10:06→20:19)
[2023-05-25] MEDS: INSULIN ASPART PER UNIT CHARGE SC SCH ×4 (10:06→22:48)
--- NOTE | 2023-05-25 17:47 | Hospitalist Progress Note ---
Date of Service May 25, 2023 Assessment & Plan (1) Lumbago: Plan: Lumbago Ambulatory dysfunction --Lumbar Xray:. No acute lumbar spine fracture. No change in appearance of the lumbar spine. Moderate multilevel facet arthrosis and degenerative disc disease. --Lumbar CT from 04/26/23:No acute fracture or subluxation of the lumbar spine identified. Multilevel degenerative changes as described above. There is mild prevertebral edema again at L1 which is favored to be on a degenerative basis and is unchanged from prior. Developing discitis/osteomyelitis considered less likely. Partially imaged right pleural effusion redemonstrated. 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 Tramadol for breakthrough. Moving more now. 05/24 Started on prednisone d/t vision changes. Antiinflammatory effect can possibly help with back pain as well. (2) Vision loss: Plan: Longstanding history of receiving injections in his eyes to prevent blindness. Known glaucoma, and he has been continued on home eyedrops. 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 Woke up unable to see from right eye and now partial vision loss reported in the left eye. Patient does have atrial fi brillation but INR is therapeutic. CTA head neck/CT brain obtained to rule out stroke. No headache, ESR is elevated, seen by ophtho - not believed to be TA. As per ophthalmology - The patient has numerous long standing ocular pathologies including macular degeneration, glaucoma, complicated cataract surgery, and corneal disease. 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 The use frequent artificial tears (Q4hrs) may alleviate this to some extent. It is difficult at the bedside and with limited history to determine with any certainty the cause of his most recent vision changes. There does not appear to be any evidence of an arteritic optic neuropathy due to temporal arteritis given the lack of optic nerve swelling or hemorrhaging. It does not appear that there is any urgent problem requiring treatment while in the hospital and follow up as an outpatient with Dr. Rosenbaum would be reasonable. Further workup as needed pending neurology recommendations. Coumadin is therapeutic, cont ASA and statin as currently taking. Per neurology - Recommend initiate steroid tx for painless vision loss in setting of elevated ESR, Trend ESR. Discussed w/ neurology and repeated ESR which is still elevated. Started prednisone 60 daily. Cont. to monitor. (3) Hypoxia: Plan: Not on oxygen at home. Wean as tolerated. Chest x-ray obtained - shows pulm vasc. congestion. gave small dose extra lasix, cont. to closely monitor Currently on RA, saturating 95% (4) DM2 (diabetes mellitus, type 2): Plan: DM Type II, chronic, stable. Will hold oral diabetic meds Last HbA1c:7.3 ISS, basal Insulin, Accu checks, Diabetic diet Monitor BGs (5) [facility] current use of anticoagulant: Plan: Cont. warfarin, monitor INR. Trend daily and adjust. (6) Atrial fibrillation: Plan: persistent, stable. Cont metoprolol and coumadin per home regimen. 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 Cont current therapy (8) S/P AVR: Plan: DVT Px: Coumadin--INR therapeutic CODE STATUS Full code Disposition: per PT/OT, CM involved - plan for rehab Admission and Anticipated Discharge Date Admission Date: May 21, 2023 Subjective 83 yo M presents with R lower back pain Doing better with movement. Per pt and RN, pt was able to walk to the bathroom today. Seen by ortho-spine early on admission - no surg. intervention and recommend conservative management, PT/OT Vision change about the same Pt follows with his locomotive engineer electric Dr. Rosenbaum, and was seen by Dr. Serrano in the hospital The patient denies any headaches or eye pain Denies any fever, chills, chest pain, shortness of breath or abd. pain. Overall says he feels better. Review of Systems Review of Systems: All systems reviewed & are unremarkable except as noted in Subjective Physical Exam Physical Exam: CONSTITUTIONAL: WNWD, M in NAD EYES: normal conjunctivae, no scleral icterus ENT: external ear and nose normal, MMM NECK: supple RESPIRATORY: clear to auscultation bilaterally, no crackles, rales or wheezes, normal respiratory effort CARDIOVASCULAR: regular rate and rhythm, S1 and 2 heard without murmurs CHEST: inspection of chest normal GASTROINTESTINAL: soft, nontender, ND, no guarding MUSCULOSKELETAL: moves extremities however somewhat difficult to move d/t back pain SKIN: warm and dry NEURO/ PSYCH: alert cooperative and oriented to person, place and time. No facial palsy, no dysarthria. normal speech, no tremor, moves extremities Results & Data Results & Data Vital Signs (Past 12 Hours) Vital Signs Temp Pulse Resp BP Pulse Ox O2 Del Method 05/25/23 16:55 36.5 C 75 18 113/66 93 Room Air 05/25/23 11:43 36.6 C 76 18 142/56 H 94 Room Air 05/25/23 08:43 36.6 C 69 18 121/66 92 Room Air Laboratory Results 05/25/23 05/25/23 05/25/23 Range/Units 17:23 12:12 08:19 WBC (4.8-10.8) K/ul RBC (4.70-6.10) M/uL Hgb (14.0-18.0) g/dl Hct (42.0-52.0) % MCV (80.0-100.0) fL MCH (25.0-34.0) pg MCHC (32.0-36.0) g/dL RDW Std Deviation (36.4-46.3) fL RDW Coeff of Radha (11.5-14.5) % Plt Count (130-400) K/uL MPV (9.4-12.4) fL Sodium (136-145) mmol/L Potassium (3.5-5.1) mmol/L Chloride (98-107) mmol/L Carbon Dioxide (21-32) mmol/L Anion Gap (3-11) BUN (6-23) mg/dl Creatinine (0.6-1.4) mg/dl Est Cr Clr Drug Dosing ml/min Est GFR ( Amer) ml/min Est GFR (Non-Af Amer) ml/min BUN/Creatinine Ratio (10-20) Glucose (70-99(Fasting)) mg/dl POC Glucose 231 H 205 H 155 H (70-99) mg/dl Calcium (8.6-10.3) mg/dl Phosphorus (2.5-4.9) mg/dl Magnesium (1.7-2.4) mg/dl 05/25/23 05/24/23 Range/Units 05:24 20:55 WBC 6.98 (4.8-10.8) K/ul RBC 3.32 L (4.70-6.10) M/uL Hgb 9.1 L (14.0-18.0) g/dl Hct 28.5 L (42.0-52.0) % MCV 85.8 (80.0-100.0) fL MCH 27.4 (25.0-34.0) pg MCHC 31.9 L (32.0-36.0) g/dL RDW Std Deviation 52.7 H (36.4-46.3) fL RDW Coeff of Radha 16.8 H (11.5-14.5) % Plt Count 172 (130-400) K/uL MPV 11.8 (9.4-12.4) fL Sodium 136 (136-145) mmol/L Potassium 4.7 (3.5-5.1) mmol/L Chloride 103 (98-107) mmol/L Carbon Dioxide 27 (21-32) mmol/L Anion Gap 6 (3-11) BUN 23 (6-23) mg/dl Creatinine 1.00 (0.6-1.4) mg/dl Est Cr Clr Drug Dosing 63.4 ml/min Est GFR ( Amer) 79.7 ml/min Est GFR (Non-Af Amer) 68.8 ml/min BUN/Creatinine Ratio 23.0 H (10-20) Glucose 161 H (70-99(Fasting)) mg/dl POC Glucose 210 H (70-99) mg/dl Calcium 9.2 (8.6-10.3) mg/dl Phosphorus 3.0 (2.5-4.9) mg/dl Magnesium 1.7 (1.7-2.4) mg/dl Medications Administered Current Inpatient Medications Acetaminophen (Acetaminophen 500 Mg Tab) 1,000 mg PO Q8H [facility] Stop: 06/21/23 08:44 Last Admin: 05/25/23 10:02 Dose: 1,000 mg Allopurinol (Allopurinol 100 Mg Tab) 200 mg PO Q2D@0900 [facility] Stop: 06/19/23 11:59 Last Admin: 05/24/23 08:11 Dose: 200 mg Aspirin (Aspirin 81 Mg Chew) 81 mg PO MoWeFr@0900 [facility] Stop: 06/20/23 08:59 Last Admin: 05/25/23 10:04 Dose: 81 mg Brimonidine Tartrate (Brimonidine Tartrate 0.2% 5ml) 1 drops OPL BID [facility] Stop: 06/19/23 20:59 Last Admin: 05/25/23 10:04 Dose: 1 drops Dextrose (Dextrose 50% 50 Ml Syringe) 25 - 50 ml IV UD PRN; Protocol PRN Reason: Hypoglycemia Protocol Stop: 06/19/23 11:54 Diazepam (Diazepam 2 Mg Tablet) 2 mg PO BID [facility] Stop: 06/21/23 08:59 Last Admin: 05/25/23 10:03 Dose: 2 mg Dorzolamide/Timolol (Dorzolamide/Timolol 22.3/6.8mg/Ml 10 Ml Btl) 1 drops OPL BID [facility] Stop: 06/19/23 20:59 Last Admin: 05/25/23 10:06 Dose: 1 drops Ezetimibe (Ezetimibe 10 Mg Tab) 10 mg PO HS [facility] Stop: 06/19/23 20:59 Last Admin: 05/24/23 21:19 Dose: 10 mg Furosemide (Furosemide 40 Mg Tab) 40 mg PO QAM [facility] Stop: 06/20/23 08:59 Last Admin: 05/25/23 09:54 Dose: 40 mg Glucagon (Glucagon For Inj 1 Mg Vial) 1 mg SQ UD PRN; Protocol PRN Reason: Hypoglycemia Protocol Stop: 06/19/23 11:54 Glucose (Glucose 10 Tab/Tube) 4 - 8 tab PO UD PRN; Protocol PRN Reason: Hypoglycemia Treatment Stop: 06/19/23 11:54 Glucose (Glucose 40% Gel 15 Gm Tube) 15 - 30 gm PO UD PRN; Protocol PRN Reason: Hypoglycemia Protocol Stop: 06/19/23 11:54 Insulin Aspart (Insulin Aspart Per Unit Charge) 0 units SC ACHS [facility] Stop: 06/20/23 20:59 Last Admin: 05/25/23 13:34 Dose: 9 units Insulin Glargine (Lantus Per Unit Charge) 15 units SQ BID [facility] Stop: 06/19/23 11:54 Last Admin: 05/25/23 10:06 Dose: 15 units Magnesium Oxide (Magnesium Oxide 400 Mg Tab) 400 mg PO BID [facility] Stop: 06/23/23 20:59 Last Admin: 05/25/23 09:55 Dose: 400 mg Metoprolol Succinate (Metoprolol Succ 50mg Ext Rel Tab) 100 mg PO BID [facility] Stop: 06/19/23 20:59 Last Admin: 05/25/23 09:54 Dose: 100 mg Miscellaneous (Carbohydrates For Hypoglycemia ) 15 - 30 gm PO UD PRN PRN Reason: Hypoglycemia Protocol Stop: 06/19/23 11:54 Morphine Sulfate (Morphine Sulfate 2 Mg/Ml Carp) 2 mg IV Q6H PRN PRN Reason: Severe Pain (Scale 7, 8, 9,10) Stop: 06/03/23 11:54 Last Admin: 05/24/23 11:59 Dose: 2 mg Multi-Ingredient Cream (Eucerin Cr 120 Gm Jar) 1 appln EXT BID PRN PRN Reason: Affected Skin Folds Stop: 06/19/23 15:49 Nitroglycerin (Nitroglycerin Sl 0.4 Mg/Tab Tab) 0.4 mg SL PRN PRN PRN Reason: Chest Pain Stop: 06/19/23 11:54 Pantoprazole Sodium (Pantoprazole 40 Mg Tab) 40 mg PO QAM [facility] Stop: 06/23/23 16:14 Last Admin: 05/25/23 09:55 Dose: 40 mg Polyethylene Glycol (Polyethylene (Miralax) 17 Gm Pack) 17 gm PO DAILY PRN PRN Reason: Constipation Stop: 06/19/23 11:54 Prednisone (Prednisone 20 Mg Tab) 60 mg PO QAM [facility] Stop: 06/23/23 08:59 Last Admin: 05/25/23 09:55 Dose: 60 mg Simvastatin (Simvastatin 40 Mg Tab) 40 mg PO [facility]; Protocol Stop: 06/19/23 20:59 Last Admin: 05/24/23 21:19 Dose: 40 mg Sotalol HCl (Sotalol Hcl 80 Mg Tab) 120 mg PO BID [facility] Stop: 06/19/23 20:59 Last Admin: 05/25/23 09:53 Dose: 120 mg Spironolactone (Spironolactone 12.5 Mg Tab) 12.5 mg PO DAILY [facility] Stop: 06/20/23 08:59 Last Admin: 05/25/23 09:55 Dose: 12.5 mg Terazosin HCl (Terazosin Hcl 1 Mg Cap) 2 mg PO DAILY [facility] Stop: 06/20/23 08:59 Last Admin: 05/25/23 09:55 Dose: 2 mg Tramadol HCl (Tramadol Hcl 50 Mg Tablet) 50 mg PO Q4H PRN PRN Reason: breakthorugh pain Stop: 06/21/23 08:34 Last Admin: 05/22/23 20:42 Dose: 50 mg Travoprost (Travoprost Z 0.004% Oph Soln 2.5 Ml Btl) 1 drops OPB HS [facility] Stop: 06/19/23 20:59 Last Admin: 05/24/23 21:20 Dose: Not Given Warfarin Sodium (Warfarin Sod 4 Mg Tab) 4 mg PO DAILY@1600 [facility] Stop: 06/20/23 19:34 Last Admin: 05/24/23 16:01 Dose: 4 mg (6) Atrial fibrillation Atrial fibrillation type: persistent (not longstanding) Qualified Code(s): I48.19 - Other persistent atrial fibrillation
[2023-05-25] MEDS: WARFARIN SOD 4 MG TAB PO SCH (18:12)
[2023-05-25] MEDS: EZETIMIBE 10 MG TAB PO SCH (20:20)
[2023-05-25] MEDS: SIMVASTATIN 40 MG TAB PO SCH (20:21)
[2023-05-25] MEDS: TRAVOPROST Z 0.004% OPH SOLN 2.5 ML BTL OPB SCH (20:22)
[2023-05-26] MEDS: ACETAMINOPHEN 500 MG TAB PO SCH ×3 (01:29→17:14)
[2023-05-26 06:34] LABS: BUN Creatinine Ratio 27.5 (10-20); Calcium 9.4 mg/dl (8.6-10.3); Creatinine Clr Calc Pharmacy 58.2 ml/min; Est GFR (African American) 71.9 ml/min; Magnesium 1.7 mg/dl (1.7-2.4); Phosphorus 2.9 mg/dl (2.5-4.9); Potassium 4.4 mmol/L (3.5-5.1)
[2023-05-26 06:38] LABS: INR 3.3 (0.9-1.1); Prothrombin Time 33.3 Seconds (9.0-12.0)
[2023-05-26] MEDS ORDERED: MAGNESIUM SULFATE / D5W 1 GM/100 ML BAG IV ONE (08:05)
[2023-05-26] MEDS: predniSONE 20 MG TAB PO SCH (09:06)
[2023-05-26] MEDS: BRIMONIDINE TARTRATE 0.2% 5ML OPL SCH ×2 (09:06→20:58)
[2023-05-26] MEDS: TERAZOSIN HCL 1 MG CAP PO SCH (09:06)
[2023-05-26] MEDS: allopurinoL 100 MG TAB PO SCH (09:07)
[2023-05-26] MEDS: SOTALOL HCL 80 MG TAB PO SCH ×2 (09:07→21:02)
[2023-05-26] MEDS: SPIRONOLACTONE 12.5 MG TAB PO SCH (09:07)
[2023-05-26] MEDS: MAGNESIUM OXIDE 400 MG TAB PO SCH ×2 (09:07→21:03)
[2023-05-26] MEDS: METOPROLOL SUCC 50MG EXT REL TAB PO SCH ×2 (09:08→21:01)
[2023-05-26] MEDS: PANTOprazole 40 MG TAB PO SCH (09:09)
[2023-05-26] MEDS: FUROSEMIDE 40 MG TAB PO SCH (09:09)
[2023-05-26] MEDS: DORZOLAMIDE/TIMOLOL 22.3/6.8MG/ML 10 ML BTL OPL SCH ×2 (09:10→20:57)
[2023-05-26] MEDS: diazePAM 2 MG TABLET PO SCH ×2 (09:11→20:58)
[2023-05-26] MEDS: INSULIN ASPART PER UNIT CHARGE SC SCH ×4 (09:23→21:35)
[2023-05-26] MEDS: LANTUS PER UNIT CHARGE SQ SCH ×2 (09:24→21:35)
[2023-05-26] MEDS: WARFARIN SOD 4 MG TAB PO SCH (15:50)
--- NOTE | 2023-05-26 16:00 | Hospitalist Progress Note ---
Date of Service May 26, 2023 Assessment & Plan (1) Lumbago: Plan: Lumbago Ambulatory dysfunction --Lumbar Xray:. No acute lumbar spine fracture. No change in appearance of the lumbar spine. Moderate multilevel facet arthrosis and degenerative disc disease. --Lumbar CT from 04/26/23:No acute fracture or subluxation of the lumbar spine identified. Multilevel degenerative changes as described above. There is mild prevertebral edema again at L1 which is favored to be on a degenerative basis and is unchanged from prior. Developing discitis/osteomyelitis considered less likely. Partially imaged right pleural effusion redemonstrated. 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 Tramadol for breakthrough. Moving more now. 05/24 Started on prednisone d/t vision changes. Antiinflammatory effect can possibly help with back pain as well. 05/26 Pt is ambulating better, able to ambulate to bathroom. Pain is currently well controlled. (2) Vision loss: Plan: Longstanding history of receiving injections in his eyes to prevent blindness. Known glaucoma, and he has been continued on home eyedrops. 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 Woke up unable to see from right eye and now partial vision loss reported in the left eye. Patient does have atrial fibrillation but INR is therapeutic. CTA head neck/CT brain obtained to rule out stroke. No headache, ESR is elevated, seen by ophtho - not believed to be TA. As per ophthalmology - The patient has numerous long standing ocular pathologies including macular degeneration, glaucoma, complicated cataract surgery, and corneal disease. 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 The use frequent artificial tears (Q4hrs) may alleviate this to some extent. It is difficult at the bedside and with limited history to determine with any certainty the cause of his most recent vision changes. There does not appear to be any evidence of an arteritic optic neuropathy due to temporal arteritis given the lack of optic nerve swelling or hemorrhaging. It does not appear that there is any urgent problem requiring treatment while in the hospital and follow up as an outpatient with Dr. Rosenbaum would be reasonable. Further workup as needed pending neurology recommendations. Coumadin is therapeutic, cont ASA and statin as currently taking. Per neurology - Recommend initiate steroid tx for painless vision loss in setting of elevated ESR, Trend ESR. Discussed w/ neurology and repeated ESR which is still elevated. Started prednisone 60 daily. Cont. to monitor. (3) Hypoxia: Plan: Not on oxygen at home. Wean as tolerated. Chest x-ray obtained - shows pulm vasc. congestion. gave small dose extra lasix, cont. to closely monitor Currently on RA, saturating 95% (4) DM2 (diabetes mellitus, type 2): Plan: DM Type II, chronic, stable. Will hold oral diabetic meds Last HbA1c:7.3 ISS, basal Insulin, Accu checks, Diabetic diet Monitor BGs (5) [facility] current use of anticoagulant: Plan: Cont. warfarin, monitor INR. Trend daily and adjust. (6) Atrial fibrillation: Plan: persistent, stable. Cont metoprolol and coumadin per home regimen. 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 Cont current therapy (8) S/P AVR: Plan: DVT Px: Coumadin--INR therapeutic CODE STATUS Full code Disposition: per PT/OT, CM involved - plan for rehab Admission and Anticipated Discharge Date Admission Date: May 21, 2023 Subjective 83 yo M presents with R lower back pain Doing better with movement. Able to ambulate to bathroom. pain is currently well controlled Seen by ortho-spine early on admission - no surg. intervention and recommend conservative management, PT/OT Vision change about the same Pt follows with his survey interviewer Dr. Rosenbaum, and was seen by Dr. Serrano in the hospital The patient denies any headaches or eye pain Denies any fever, chills, chest pain, shortness of breath or abd. pain. Overall says he feels better. Likely will DC tmrw Review of Systems Review of Systems: All systems reviewed & are unremarkable except as noted in Subjective Physical Exam Physical Exam: CONSTITUTIONAL: WNWD, M in NAD EYES: normal conjunctivae, no scleral icterus ENT: external ear and nose normal, MMM NECK: supple RESPIRATORY: clear to auscultation bilaterally, no crackles, rales or wheezes, normal respiratory effort CARDIOVASCULAR: regular rate and rhythm, S1 and 2 heard without murmurs CHEST: inspection of chest normal GASTROINTESTINAL: soft, nontender, ND, no guarding MUSCULOSKELETAL: moves extremities however somewhat difficult to move d/t back pain SKIN: warm and dry NEURO/ PSYCH: alert cooperative and oriented to person, place and time. No facial palsy, no dysarthria. normal speech, no tremor, moves extremities Results & Data Results & Data Vital Signs (Past 12 Hours) Vital Signs Temp Pulse Pulse Resp BP BP Pulse Ox 05/26/23 15:43 36.5 C 75 18 134/65 93 05/26/23 15:03 75 05/26/23 14:08 05/26/23 11:55 36.4 C L 76 18 123/51 L 96 05/26/23 09:03 36.5 C 75 18 129/75 95 05/26/23 07:15 67 05/26/23 04:07 O2 Del Method 05/26/23 15:43 Room Air 05/26/23 15:03 05/26/23 14:08 Room Air 05/26/23 11:55 Room Air 05/26/23 09:03 Room Air 05/26/23 07:15 05/26/23 04:07 Room Air Laboratory Results 05/26/23 05/26/23 05/26/23 Range/Units 12:26 08:14 05:34 PT 33.3 H (9.0-12.0) Seconds INR 3.3 H (0.9-1.1) Sodium 135 L (136-145) mmol/L Potassium 4.4 (3.5-5.1) mmol/L Chloride 103 (98-107) mmol/L Carbon Dioxide 26 (21-32) mmol/L Anion Gap 6 (3-11) BUN 30 H (6-23) mg/dl Creatinine 1.09 (0.6-1.4) mg/dl Est Cr Clr Drug Dosing 58.2 ml/min Est GFR ( Amer) 71.9 ml/min Est GFR (Non-Af Amer) 62.0 ml/min BUN/Creatinine Ratio 27.5 H (10-20) Glucose 184 H (70-99(Fasting)) mg/dl POC Glucose 253 H 181 H (70-99) mg/dl Calcium 9.4 (8.6-10.3) mg/dl Phosphorus 2.9 (2.5-4.9) mg/dl Magnesium 1.7 (1.7-2.4) mg/dl 05/25/23 05/25/23 Range/Units 20:36 17:23 PT (9.0-12.0) Seconds INR (0.9-1.1) Sodium (136-145) mmol/L Potassium (3.5-5.1) mmol/L Chloride (98-107) mmol/L Carbon Dioxide (21-32) mmol/L Anion Gap (3-11) BUN (6-23) mg/dl Creatinine (0.6-1.4) mg/dl Est Cr Clr Drug Dosing ml/min Est GFR ( Amer) ml/min Est GFR (Non-Af Amer) ml/min BUN/Creatinine Ratio (10-20) Glucose (70-99(Fasting)) mg/dl POC Glucose 239 H 231 H (70-99) mg/dl Calcium (8.6-10.3) mg/dl Phosphorus (2.5-4.9) mg/dl Magnesium (1.7-2.4) mg/dl Medications Administered Current Inpatient Medications Acetaminophen (Acetaminophen 500 Mg Tab) 1,000 mg PO Q8H [facility] Stop: 06/21/23 08:44 Last Admin: 05/26/23 09:20 Dose: Not Given Allopurinol (Allopurinol 100 Mg Tab) 200 mg PO Q2D@0900 [facility] Stop: 06/19/23 11:59 Last Admin: 05/26/23 09:07 Dose: 200 mg Aspirin (Aspirin 81 Mg Chew) 81 mg PO MoWeFr@0900 [facility] Stop: 06/20/23 08:59 Last Admin: 05/25/23 10:04 Dose: 81 mg Brimonidine Tartrate (Brimonidine Tartrate 0.2% 5ml) 1 drops OPL BID [facility] Stop: 06/19/23 20:59 Last Admin: 05/26/23 09:06 Dose: 1 drops Dextrose (Dextrose 50% 50 Ml Syringe) 25 - 50 ml IV UD PRN; Protocol PRN Reason: Hypoglycemia Protocol Stop: 06/19/23 11:54 Diazepam (Diazepam 2 Mg Tablet) 2 mg PO BID [facility] Stop: 06/21/23 08:59 Last Admin: 05/26/23 09:11 Dose: 2 mg Dorzolamide/Timolol (Dorzolamide/Timolol 22.3/6.8mg/Ml 10 Ml Btl) 1 drops OPL BID [facility] Stop: 06/19/23 20:59 Last Admin: 05/26/23 09:10 Dose: 1 drops Ezetimibe (Ezetimibe 10 Mg Tab) 10 mg PO HS [facility] Stop: 06/19/23 20:59 Last Admin: 05/25/23 20:20 Dose: 10 mg Furosemide (Furosemide 40 Mg Tab) 40 mg PO QAM [facility] Stop: 06/20/23 08:59 Last Admin: 05/26/23 09:09 Dose: 40 mg Glucagon (Glucagon For Inj 1 Mg Vial) 1 mg SQ UD PRN; Protocol PRN Reason: Hypoglycemia Protocol Stop: 06/19/23 11:54 Glucose (Glucose 10 Tab/Tube) 4 - 8 tab PO UD PRN; Protocol PRN Reason: Hypoglycemia Treatment Stop: 06/19/23 11:54 Glucose (Glucose 40% Gel 15 Gm Tube) 15 - 30 gm PO UD PRN; Protocol PRN Reason: Hypoglycemia Protocol Stop: 06/19/23 11:54 Insulin Aspart (Insulin Aspart Per Unit Charge) 0 units SC ACHS [facility] Stop: 06/20/23 20:59 Last Admin: 05/26/23 13:19 Dose: 12 units Insulin Glargine (Lantus Per Unit Charge) 15 units SQ BID [facility] Stop: 06/19/23 11:54 Last Admin: 05/26/23 09:24 Dose: 15 units Magnesium Oxide (Magnesium Oxide 400 Mg Tab) 400 mg PO BID [facility] Stop: 06/23/23 20:59 Last Admin: 05/26/23 09:07 Dose: 400 mg Metoprolol Succinate (Metoprolol Succ 50mg Ext Rel Tab) 100 mg PO BID [facility] Stop: 06/19/23 20:59 Last Admin: 05/26/23 09:08 Dose: 100 mg Miscellaneous (Carbohydrates For Hypoglycemia ) 15 - 30 gm PO UD PRN PRN Reason: Hypoglycemia Protocol Stop: 06/19/23 11:54 Morphine Sulfate (Morphine Sulfate 2 Mg/Ml Carp) 2 mg IV Q6H PRN PRN Reason: Severe Pain (Scale 7, 8, 9,10) Stop: 06/03/23 11:54 Last Admin: 05/24/23 11:59 Dose: 2 mg Multi-Ingredient Cream (Eucerin Cr 120 Gm Jar) 1 appln EXT BID PRN PRN Reason: Affected Skin Folds Stop: 06/19/23 15:49 Nitroglycerin (Nitroglycerin Sl 0.4 Mg/Tab Tab) 0.4 mg SL PRN PRN PRN Reason: Chest Pain Stop: 06/19/23 11:54 Pantoprazole Sodium (Pantoprazole 40 Mg Tab) 40 mg PO QAM [facility] Stop: 06/23/23 16:14 Last Admin: 05/26/23 09:09 Dose: 40 mg Polyethylene Glycol (Polyethylene (Miralax) 17 Gm Pack) 17 gm PO DAILY PRN PRN Reason: Constipation Stop: 06/19/23 11:54 Prednisone ([facility] 20 Mg Tab) [facility] Stop: 06/23/23 08:59 Last Admin: 05/26/23 09:06 Dose: 60 mg Simvastatin (Simvastatin 40 Mg Tab) 40 mg PO [facility]; Protocol Stop: 06/19/23 20:59 Last Admin: 05/25/23 20:21 Dose: 40 mg Sotalol HCl (Sotalol Hcl 80 Mg Tab) 120 mg PO BID [facility] Stop: 06/19/23 20:59 Last Admin: 05/26/23 09:07 Dose: 120 mg Spironolactone (Spironolactone 12.5 Mg Tab) 12.5 mg PO DAILY [facility] Stop: 06/20/23 08:59 Last Admin: 05/26/23 09:07 Dose: 12.5 mg Terazosin HCl (Terazosin Hcl 1 Mg Cap) 2 mg PO DAILY [facility] Stop: 06/20/23 08:59 Last Admin: 05/26/23 09:06 Dose: 2 mg Tramadol HCl (Tramadol Hcl 50 Mg Tablet) 50 mg PO Q4H PRN PRN Reason: breakthorugh pain Stop: 06/21/23 08:34 Last Admin: 05/22/23 20:42 Dose: 50 mg Travoprost (Travoprost Z 0.004% Oph Soln 2.5 Ml Btl) 1 drops OPB [facility] Stop: 06/19/23 20:59 Last Admin: 05/25/23 20:22 Dose: 1 drops Warfarin Sodium (Warfarin Sod 4 Mg Tab) 4 mg PO DAILY@1600 [facility] Stop: 06/20/23 19:34 Last Admin: 05/26/23 15:50 Dose: 4 mg (6) Atrial fibrillation Atrial fibrillation type: persistent (not longstanding) Qualified Code(s): I48.19 - Other persistent atrial fibrillation
[2023-05-26] MEDS: TRAVOPROST Z 0.004% OPH SOLN 2.5 ML BTL OPB SCH (20:58)
[2023-05-26] MEDS: SIMVASTATIN 40 MG TAB PO SCH (21:01)
[2023-05-26] MEDS: EZETIMIBE 10 MG TAB PO SCH (21:04)
[2023-05-26] MEDS: traMADol HCL 50 MG TABLET PO PRN (21:34)
[2023-05-27] MEDS: ACETAMINOPHEN 500 MG TAB PO SCH ×2 (01:31→08:31)
[2023-05-27 06:31] LABS: Prothrombin Time 39.9 Seconds (9.0-12.0)
[2023-05-27 08:08] LABS: BUN Creatinine Ratio 30.3 (10-20); Calcium 9.4 mg/dl (8.6-10.3); Creatinine Clr Calc Pharmacy 59.2 ml/min; Est GFR (African American) 80.7 ml/min; Est GFR (Non-African American) 69.6 ml/min; Magnesium 1.9 mg/dl (1.7-2.4); Phosphorus 2.5 mg/dl (2.5-4.9); Potassium 4.3 mmol/L (3.5-5.1)
[2023-05-27] MEDS: BRIMONIDINE TARTRATE 0.2% 5ML OPL SCH (08:32)
[2023-05-27] MEDS: MAGNESIUM OXIDE 400 MG TAB PO SCH (08:32)
[2023-05-27] MEDS: SOTALOL HCL 80 MG TAB PO SCH (08:32)
[2023-05-27] MEDS: METOPROLOL SUCC 50MG EXT REL TAB PO SCH (08:33)
[2023-05-27] MEDS: PANTOprazole 40 MG TAB PO SCH (08:33)
[2023-05-27] MEDS: SPIRONOLACTONE 12.5 MG TAB PO SCH (08:33)
[2023-05-27] MEDS: FUROSEMIDE 40 MG TAB PO SCH (08:34)
[2023-05-27] MEDS: DORZOLAMIDE/TIMOLOL 22.3/6.8MG/ML 10 ML BTL OPL SCH (08:34)
[2023-05-27] MEDS: TERAZOSIN HCL 1 MG CAP PO SCH (08:34)
[2023-05-27] MEDS: predniSONE 20 MG TAB PO SCH (08:34)
[2023-05-27] MEDS: INSULIN ASPART PER UNIT CHARGE SC SCH ×2 (09:15→12:57)
[2023-05-27] MEDS: diazePAM 2 MG TABLET PO SCH (09:16)
[2023-05-27] MEDS: LANTUS PER UNIT CHARGE SQ SCH (09:16)
--- NOTE | 2023-05-27 11:19 | Discharge Summary ---
Date of Service May 27, 2023 Admission HPI Per Admitting Provider Patient is a 83-year-old male with history of glaucoma-right eye blindness, atrial fibrillation on chronic anticoagulation with Coumadin, postop DVT S/P IVC, aortic valve replacement, diabetes mellitus, hyperlipidemia, gout, coronary artery disease, hypertension, pernicious anemia, diastolic heart failure PETER inhibitor nephrotoxicity and other medical problems who was recently admitted at [facility] and was treated for diastolic heart failure, hematuria likely catheter induced, lower back pain and was discharged to rehab facility presents with history of lower back pain. History is obtained both from patient and patient's son at bedside. Patient states that he did did well at rehab and was discharged after 8 days and continued with home physical therapy. Yesterday he noticed to have low back pain which slightly improved with Tylenol. At around 1:30 AM this morning he woke up with significant back pain and he was unable to sit or stand or ambulate secondary to pain. He describes lower back pain to be very sharp, 8/10 intensity, nonradiating, not associated with numbness or tingling, focal weakness, bowel or bladder incontinence. He also denies any fall, trauma. He received morphine while in ED which helped. Denies any history of chest pain, dyspnea, dizziness, cough, fever, chills, headache, change in vision, nausea, vomiting, abdominal pain, dysuria, hematuria. Admission Exam Per Admitting Provider General Appearance:Obese, no apparent distress Head: normocephalic, Atraumatic,+ poor dentition Eyes: normal inspection, EOMI, +R eye blindness Neck: supple, Trachea midline Respiratory/Chest: Normal breath sounds, CTA, No accessory muscle use Cardiovascular: Metallic Heart sounds, No murmur Abdomen/GI:Soft, Non tender, Bowel sounds present Back: +Lumbar tender Extremities/Musculoskeletal:normal inspection, B/L LE edema, + ichthyosis, chronic venous stasis changes Neurologic/Psych:AAOX3, grossly no focal neurological deficits Skin: normal color, warm Principal Diagnosis Back pain, ambulatory dysfunction Worsening vision - known history of vision problems Discharge Exam CONSTITUTIONAL: WNWD, M in NAD EYES: normal conjunctivae, no scleral icterus ENT: external ear and nose normal, MMM NECK: supple RESPIRATORY: clear to auscultation bilaterally, no crackles, rales or wheezes, normal respiratory effort CARDIOVASCULAR: regular rate and rhythm, S1 and 2 heard without murmurs CHEST: inspection of chest normal GASTROINTESTINAL: soft, nontender, ND, no guarding MUSCULOSKELETAL: moves extremities however somewhat difficult to move d/t back pain SKIN: warm and dry NEURO/ PSYCH: alert cooperative and oriented to person, place and time. No facial palsy, no dysarthria. normal speech, no tremor, moves extremities Discharge Data Allergies Allergy/AdvReac Type Severity Reaction Status Date / Time niacin Allergy Intermediate HIVES Verified 04/21/23 09:30 Consultations 05/20/23 09:04 ED Decision to Admit Stat 05/20/23 11:55 Consult Orthopedic Surgery Routine 05/22/23 07:46 Consult Ophthalmology Routine 05/22/23 18:37 Consult Neurology Routine Ordered Studies 05/22/23 15:31 CT angio head w con Urgent CT head/brain wo con Urgent FINDINGS: CTA Head: The anterior and posterior cerebral circulations are patent. No hemodynamically significant stenosis, aneurysm, dissection, or arteriovenous malformation is shown. IMPRESSION: No occlusion, hemodynamically significant stenosis, aneurysm, dissection, or arteriovenous malformation in the major intracranial arteries. Assessment of stenosis of the internal carotid arteries is based on NASCET criteria. FINDINGS: Brain parenchyma: There is age-related involutional change noting [id number] subcortical and periventricular microangiopathic disease. There is no hemorrhage, mass effect, or evidence of acute territorial ischemia by CT criteria. Gallegos-white matter differentiation is preserved. No extra-axial fluid collection is seen. Ventricles, sulci, cisterns: Prominent secondary to involutional change. Intracranial vasculature: There is atherosclerotic calcification of the cavernous carotid and vertebral arteries. Calvarium: Unremarkable. Sinuses and mastoids: There is mucosal opacification of the maxillary, frontal, and ethmoid sinuses. There are trace mastoid effusions. Orbits: The bony orbits are grossly intact. There are bilateral ocular lens implants. IMPRESSION: 1. There is no hemorrhage, mass effect, or evidence of acute territorial ischemia by CT criteria. 2. Paranasal sinus disease as above. CTA neck with con [CT angio neck with con] Urgent FINDINGS: Thoracic aorta: There is atherosclerotic calcification of the thoracic aorta. Visualized portions of the thoracic aorta are normal in caliber. The aortic arch demonstrates standard 3-vessel anatomy. Right carotid arterial system: The right common carotid artery is widely patent, as are the right internal and external carotid arteries. Calcified plaque is noted in the carotid bulb. Left carotid arterial system: The left common carotid artery is widely patent, as are the left internal and external carotid arteries. Calcified plaque is noted in the carotid bulb. Vertebral arteries: The vertebral arteries are widely patent bilaterally and codominant. Subclavian arteries: Widely patent bilaterally. Intracranial vasculature: The visualized intracranial vessels at the skull base are patent. Jugular veins: Widely patent bilaterally. Brain parenchyma: The visualized brain parenchyma the skull base is within normal limits. Lung apices: A 9 mm left apical pulmonary nodule is seen on image #[id number]. Partially visualized upper lobe lung parenchyma is otherwise clear. Soft tissues: The visualized pharyngeal soft tissues are normal in appearance noting angiographic phase technique. The oropharyngeal airway appears widely patent. The thyroid gland is enlarged and heterogeneous consistent with goiter. A calcified sialolith is noted in the left parotid gland. The salivary glands are otherwise normal in appearance. No cervical lymphadenopathy is seen. Skeletal structures: The skeletal structures are osteopenic. The visualized calvarium at the skull base appears intact. The imaged cervical spine is maintained noting multilevel spondylosis. The patient is status post midline sternotomy. Sinuses and mastoids: There is good opacification of the maxillary and ethmoid sinuses. Thickening and sclerosis of the sinus rodriguez indicates chronicity. There is trace left mastoid effusion. The right mastoid air cells are well pneumatized. IMPRESSION: 1. Unremarkable CT angiogram of the neck. 2. A 9 mm left apical pulmonary nodule is unchanged from the 04/21/[address] 3. Paranasal sinus disease as above. 4. Additional findings as above. Hospital Course (1) Lumbago: Lumbago Ambulatory dysfunction --Lumbar Xray:. No acute lumbar spine fracture. No change in appearance of the lumbar spine. Moderate multilevel facet arthrosis and degenerative disc disease. --Lumbar CT from 04/26/23:No acute fracture or subluxation of the lumbar spine identified. Multilevel degenerative changes as described above. There is mild prevertebral edema again at L1 which is favored to be on a degenerative basis and is unchanged from prior. Developing discitis/osteomyelitis considered less likely. Partially imaged right pleural effusion redemonstrated. 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 Tramadol for breakthrough. Moving more now. 05/24 Started on prednisone d/t vision changes. Antiinflammatory effect can possibly help with back pain as well. 05/26 -05/27 Pt is ambulating better, able to ambulate to bathroom. Pain is currently well controlled. (2) Vision loss: Longstanding history of receiving injections in his eyes to prevent blindness. Known glaucoma, and he has been continued on home eyedrops. 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 Woke up unable to see from right eye and now partial vision loss reported in the left eye. Patient does have atrial fibrillation but INR is therapeutic. CTA head neck/CT brain obtained to rule out stroke. No headache, ESR is elevated, seen by ophtho - not believed to be TA by ophtho. As per ophthalmology - The patient has numerous long standing ocular pathologies including macular degeneration, glaucoma, complicated cataract surgery, and corneal disease. 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 The use frequent artificial tears (Q4hrs) may alleviate this to some extent. It is difficult at the bedside and with limited history to determine with any certainty the cause of his most recent vision changes. There does not appear to be any evidence of an arteritic optic neuropathy due to temporal arteritis given the lack of optic nerve swelling or hemorrhaging. It does not appear that there is any urgent problem requiring treatment while in the hospital and follow up as an outpatient with Dr. Rosenbaum would be reasonable. Further workup as needed pending neurology recommendations. Coumadin is therapeutic, cont ASA and statin as currently taking. Per neurology - Recommend initiate steroid tx for painless vision loss in setting of elevated ESR, Trend ESR. Discussed w/ neurology and repeated ESR which is still elevated. Started prednisone 60 daily. Cont. to monitor. Another ESR repeated today (05/27/23) still elevated but trending down 121 -> 101. Recommend to re-check/ trend ESR as outpt. Cont. prednisone for now. (3) Hypoxia: Not on oxygen at home. Wean as tolerated. Chest x-ray obtained - shows pulm vasc. congestion. gave small dose extra lasix, cont. to closely monitor Currently on RA, saturating 95% (4) DM2 (diabetes mellitus, type 2): DM Type II, chronic, stable. 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 warfarin, monitor INR. Trend daily and adjust. INR today (05/27/23) is 4 - hold warfarin today - recheck INR in 1-2 days. (6) Atrial fibrillation: persistent, stable. Cont metoprolol and coumadin per home regimen. (7) S/P CABG x 2: chronic, stable. Cont current therapy (8) S/P AVR: Total Time Total Time Spent Total Time Spent (In Minutes): 40 Discharge Plan Discharge Items Patient Disposition: Transfer Residential Fac Reason For Visit: RECURRENT BACK PAIN, UNABLE TO AMBULATE Discharge Diagnosis: Back pain, ambulatory dysfunction Worsening vision - known history of vision problems Activity: Per Instructions section Non-emergency contact: Primary Care Provider Call non-emergency contact if: you have any medication questions and your symptoms worsen Follow-up/Referrals: Sourav Verde MD [Primary Care Provider] - Diet: Carb Consistent or DM2 Addtl Attending Provider Instructions: Follow up with primary care doctor within 1 week. Do not take warfarin today and check your INR tomorrow or Sunday. Take prednisone 60 mg daily until further instructed by your health care providers. While taking prednisone, take pantoprazole daily as prescribed. Follow up with your school examiner, Dr. Rosenbaum, at your earliest convenience/ whenever the earliest [facility] can arrange. For pain you can take tylenol 1000 mg three times a day and tramadol as needed for more severe pain. You were also started on valium while in the hospital. Pending Studies at Discharge: No Stand-Alone Forms: My [facility] [employer] Skilled Items Patient informed of condition?: Yes DNR: No Discharge Level of Care: Skilled Communicable Disease: No Discharge Prognosis: Stable Lines: None Urinary Catheter: Yes Medications and DC Order Prescriptions: New acetaminophen [Tylenol Extra Strength] 500 mg Tablet 1,000 mg PO Q8H 5 Days Qty: 30 0RF diazepam 2 mg Tablet 2 mg PO BID 3 Days Qty: 6 0RF tramadol 50 mg Tablet 50 mg PO Q4H PRN (Reason: pain) Qty: 10 0RF magnesium oxide 400 mg (241.3 mg magnesium) Tablet 400 mg PO BID 5 Days Qty: 10 0RF prednisone 20 mg Tablet 60 mg PO QAM 14 Days Qty: 42 0RF pantoprazole 40 mg Tablet,Delayed Release (Dr/Ec) 40 mg PO QAM 14 Days Qty: 14 0RF Continued nitroglycerin [Nitrostat] 0.4 mg Tablet, Sublingual 0.4 mg sublingual PRN PRN (Reason: Chest Pain) Qty: 0 terazosin 2 mg Capsule 2 mg PO DAILY Qty: 90 travoprost 0.004 % Drops 1 drp OPB HS Qty: 1 bismuth subsalicylate 525 mg/15 mL Suspension 525 mg PO DAILY PRN (Reason: Diarrhea) Qty: 0 furosemide 40 mg tablet 40 mg PO QAM allopurinol 100 mg tablet 200 mg PO Q2D insulin aspart U-100 [Novolog U-100 Insulin aspart] 100 unit/mL solution See Rx Instructions .ROUTE .COMPLEX Rx Instructions: 15 Units with breakfast, 15 Units with lunch, 20 Units with dinner metformin 1,000 mg tablet 1,000 mg PO BID brimonidine 0.2 % drops 1 drp OPL BID aspirin 81 mg tablet,chewable 81 mg PO .MON/WED/FRI ezetimibe-simvastatin 10-40 mg tablet 1 tab PO HS Levemir U-100 Insulin 100 unit/mL solution 84 unit SUBCUT HS dorzolamide-timolol (PF) 2-0.5 % dropperette 1 drp OPL BID warfarin 3 mg tablet 3 mg PO DAILY Qty: 30 0RF metoprolol succinate 50 mg Tablet Extended Release 24 Hr 100 mg PO BID 30 Days Qty: 120 0RF spironolactone 25 mg Tablet 12.5 mg PO DAILY 30 Days Qty: 15 0RF sotalol 120 mg tablet 120 mg PO BID Discharge Orders: Discharge Order (Routine); Ordered 05/27/23 Ordered By: Gabino Trivedi Admission Data Admit Date/Time: 05/21/23 09:11 Attending Provider: Gabino Trivedi Admit Provider: Amisha Matos Primary Care Provider: Sourav Verde Other Providers: Osman Mathis; [place],[facility]; Amisha Matos; Dmitri Cardoso,Master J; Lencho Mandujano
== END 2023-05-27 13:27 | DRG 552 ==
LOC: ED 05:26 → EDINP 05:26 → SUATTDRO 08:48 → 3N 11:42 → SUATTDRO 05-21 09:11 → 3N 05-21 21:02 → 2N 05-22 18:34

== ENCOUNTER 2023-06-20 14:02 | Inpatient (IN) ==
--- NOTE | 2023-06-20 14:08 | Emergency Department Note ---
Impression & Plan Acute exacerbation of CHF (congestive heart failure), Atrial fibrillation, Pneumonia due to COVID-19 virus, UTI (urinary tract infection) ED Provider Note NAME: KRITSINE MALONE AGE: 83 SEX: M : 1940 ARRIVES VIA: Ambulance INFORMANT: Patient, ED PROVIDER(S): Jayme Cummings MD CHIEF COMPLAINT: Shortness of breath MEDICAL DECISION MAKING: Patient presents via EMS due to concern for shortness of breath. The patient does have coarse breath sounds bilaterally and significant lower extremity edema. IV was established blood work was obtained along with blood cultures lactate procalcitonin empiric cefepime MRSA swab bio fire and IV Lasix. Patient's chest x-ray does show a right-sided pleural effusion. Patient is a normal white count hemoglobin of 10.7 with a normal platelet count. Kidney function unremarkable lactate of 3.7. Patient's BNP is elevated at 292 troponin 19. Patient's urinalysis does show possibility of infection. Patient has been covered with empiric antibiotics. Patient is COVID-positive. I did speak with the on-call hospitalist pending MRSA swab. Patient was to be admitted by Dr. Matos. Critical Care: I have personally spent 40 minutes of critical care time in direct management of this patient. This includes bedside care, interpretation of diagnostic studies, and testing, discussion with consultants, patient, and family members, and other require inpatient management activities. This 40 minutes is in excess of all separately billable procedures. Discussion w/ other healthcare providers: [address] [facility] Prior /Outside records reviewed: I reviewed a discharge summary dated from May 27, [address] Trivedi. Known history of A-fib on chronic anticoagulation DVT status post IVC filter aortic valve replacement diabetes hyperlipidemia gout CAD hypertension pernicious anemia diastolic CHF. Patient was seen due to concern for ambulatory dysfunction lumbago. Patient was noted to be hypoxic but not on oxygen at home. Patient was noted to have pulmonary vascular congestion on initial x-ray at that time. Reviewed echocardiogram from April 21, 2023. Patient's LV was noted to be normal size with LVH. EF of 60 to 65%. Left atrium right atrium dilated with RV pressure overload. Differential diagnosis: Reactive airway disease, pneumonia, pneumothorax, COPD, CHF, ACS, pulmonary embolism, musculoskeletal, GERD as well as other pathologies were considered. Diagnostics, as interpreted by me: ECG: A-fib with RVR, rate 104, normal QRS duration, normal axis no ST elevations. Cardiac monitoring: An order was placed for continuous cardiac monitoring. The monitor shows a rate of 116 with irregular irregular rhythm. Patient was placed on pulse oximetry Medical decision rules: None Imaging studies: I informally interpreted the patient's chest x-ray which shows no obvious pneumothorax pulmonary vascular congestion and likely right-sided pleural effusion with formal report to follow. HPI: Patient presents from home due to concern for worsening shortness of breath and associated lower extremity edema. Patient was noted to be hypertensive with a BP 140s and was given a dose of sublingual nitro. The patient has noted some increased shortness of breath LARRY and orthopnea with leg swelling. Reportedly the patient's last CHF eval in clinic he was doing quite well with minimal lower extremity edema but noticed it to be more pronounced. The patient states that his symptoms seem to begin yesterday but more acutely in the afternoon today. Patient has had cough that is nonproductive. No falls or trauma. The patient does admit to shortness of breath and the lower extremity swelling. Patient does not reaction at home lowest oxygen saturations per nursing were 94% on room air PAST MEDICAL HISTORY: See Below PAST SURGICAL HISTORY: See Below SOCIAL HISTORY: See Below HOME MEDICATIONS: See Below ALLERGIES: See Below VITALS: See Below PHYSICAL EXAMINATION: GENERAL: Mild distress, nasal cannula in place. EYE EXAM: Normal conjunctiva. PERRL, no anisocoria and EOM's grossly intact w/o pain. OROPHARYNX: Moist mucus membranes, grossly normal dentition. NECK: Supple, no nuchal rigidity, no adenopathy, non-tender. No signs of meningismus. FROM of the neck with good chin to chest and neck extension. No stridor. LUNGS: Coarse sounds throughout with associated rhonchi and crackles at the bases. Mild tachypnea noted HEART: Irregular regular and tachycardic, no MRG. ABDOMEN: Abdomen soft, non-tender, no masses, no rebound or guarding. BACK: No CVA TTP. SKIN: No rashes and no bruising. UPPER EXTREMITIES: Upper extremities are grossly normal. LOWER EXTREMITIES: Grossly normal, 4+ symmetric lower extremity edema NEURO EXAM: A&O x3, cranial nerves II-XII grossly intact, normal speech, moves all 4 extremities. 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" S/P AVR "2006" History of hip surgery S/P cholecystectomy Social History Smoking Status: Never smoker Hx Alcohol Use: No Hx Substance Use: No Preferred Language: Nepali Communication Ability: Effective Transit [employer] Officer Required: No Beliefs That Will Affect Care: None Current Living Situation: Family Current Living Situation Comment: Lives with jennifer Dixon Other Information That Helps Us Care for You: No Feels Safe at Home: Yes Safety Concerns: Feels Safe At This Time Assistive Devices: Cane and Walker Allergies Allergies Allergy/AdvReac Type Severity Reaction Status Date / Time niacin Allergy Intermediate HIVES Verified 04/21/23 09:30 Home Meds Home Medications Medication Instructions Recorded Confirmed nitroglycerin 0.4 mg sublingual 0.4 mg sublingual PRN PRN Chest 12/09/09 06/20/23 tablet (Nitrostat) Pain ##0 terazosin 2 mg capsule 2 mg PO DAILY ##90 12/07/13 06/20/23 bismuth subsalicylate 525 mg/15 mL 525 mg PO DAILY PRN Diarrhea ##0 10/13/15 06/20/23 oral suspension travoprost 0.004 % eye drops 1 drp OPB HS #1 btl 10/13/15 06/20/23 allopurinol 100 mg tablet 200 mg PO Q2D 04/21/23 06/20/23 aspirin 81 mg chewable tablet 81 mg PO .SUN/SUN/Sun04/21/23 06/20/23 brimonidine 0.2 % eye drops 1 drp OPL BID 04/21/23 06/20/23 dorzolamide-timolol (PF) 2 %-0.5 % 1 drp OPL BID 04/21/23 06/20/23 eye drops in a dropperette ezetimibe 10 mg-simvastatin 40 mg 1 tab PO HS 04/21/23 06/20/23 tablet furosemide 40 mg tablet 40 mg PO QAM 04/21/23 06/20/23 insulin aspart U-100 100 unit/mL See Rx Instructions .Route .COMPLEX 04/21/23 06/20/23 subcutaneous solution (Novolog U-100 Insulin aspart) insulin detemir U-100 100 unit/mL 10 unit subcut HS 04/21/23 06/20/23 subcutaneous solution (Levemir U-100 Insulin) metformin 1,000 mg tablet 1,000 mg PO BID 04/21/23 06/20/23 magnesium oxide 400 mg (241.3 mg 400 mg PO BID 06/20/23 06/20/23 magnesium) tablet metoprolol succinate 100 mg 100 mg PO BID 06/20/23 06/20/23 tablet,extended release 24 hr pantoprazole 40 mg tablet,delayed 40 mg PO QAM 06/20/23 06/20/23 release prednisone 20 mg tablet 60 mg PO DAILY 06/20/23 06/20/23 spironolactone 25 mg tablet 12.5 mg PO DAILY 06/20/23 06/20/23 warfarin 3 mg tablet 3 mg PO DAILY 06/20/23 06/20/23 Previous Rx's Medication Instructions Recorded tramadol 50 mg tablet 50 mg PO Q4H PRN pain #10 tabs 05/27/23 Results & Data (ED) Vital Signs Vital Signs - 24 hr 06/20/23 14:12 06/20/23 14:16 06/20/23 14:16 Temperature 36.4 C L Temperature Source Oral Pulse Rate 100 H 107 H Pulse Rate [Apical] Respiratory Rate 35 H Respiratory Effort / Characteristics Spontaneous Short of Breath Spontaneous Labored Short of Breath Respiratory Depth Deep Deep Respiratory Pattern Rapid/Deep Rapid/Deep Blood Pressure 122/77 Blood Pressure [Right Arm] Blood Pressure Mean 92 Blood Pressure Mean [Right Arm] Blood Pressure Position Lying Blood Pressure Position [Right Arm] Pulse Oximetry 97 Oxygen Delivery Method Room Air Room Air Oxygen Flow Rate Fraction of Inspired Oxygen Sepsis Recent Fever Within 48 Hours No Sepsis New/Unexplained Change in Mental Status No Sepsis Action Taken by Nursing Physician Notified 06/20/23 14:16 06/20/23 14:16 06/20/23 14:33 Temperature 36.4 C L Temperature Source Oral Pulse Rate 122 H Pulse Rate [Apical] 100 H Respiratory Rate 35 H 33 H Respiratory Effort / Characteristics Spontaneous Respiratory Depth Deep Normal Respiratory Pattern Rapid/Deep Regular Blood Pressure Blood Pressure [Right Arm] 122/77 Blood Pressure Mean Blood Pressure Mean [Right Arm] 92 Blood Pressure Position Blood Pressure Position [Right Arm] Lying Pulse Oximetry 98 100 Oxygen Delivery Method Nasal Cannula Nasal Cannula Oxygen Flow Rate 4 4 Fraction of Inspired Oxygen 35 Sepsis Recent Fever Within 48 Hours Sepsis New/Unexplained Change in Mental Status Sepsis Action Taken by Nursing 06/20/23 15:49 06/20/23 15:49 Temperature Temperature Source Pulse Rate 100 H Pulse Rate [Apical] 117 H Respiratory Rate 25 H Respiratory Effort / Characteristics Spontaneous Labored Respiratory Depth Respiratory Pattern Blood Pressure 122/77 Blood Pressure [Right Arm] 122/77 Blood Pressure Mean Blood Pressure Mean [Right Arm] 92 Blood Pressure Position Blood Pressure Position [Right Arm] Pulse Oximetry 99 Oxygen Delivery Method CPAP Oxygen Flow Rate Fraction of Inspired Oxygen Sepsis Recent Fever Within 48 Hours Sepsis New/Unexplained Change in Mental Status Sepsis Action Taken by Jail Medications Current Medication List: was personally reviewed by me Laboratory Data Attestation: I reviewed the patient's lab results. 06/21/23 07:30 06/21/23 07:30 Lab Results 06/20/23 06/20/23 06/20/23 Range/Units 14:13 14:34 14:55 WBC 7.29 (4.8-10.8) K/ul RBC 3.97 L (4.70-6.10) M/uL Hgb 10.7 L (14.0-18.0) g/dl Hct 34.9 L (42.0-52.0) % MCV 87.9 (80.0-100.0) fL MCH 27.0 (25.0-34.0) pg MCHC 30.7 L (32.0-36.0) g/dL RDW Std Deviation 58.0 H (36.4-46.3) fL RDW Coeff of Radha 18.0 H (11.5-14.5) % Plt Count 247 (130-400) K/uL MPV 10.9 (9.4-12.4) fL Immature Gran % (Auto) 0.5 % Neut % (Auto) 86.3 % Lymph % (Auto) 9.1 % Sunflower % (Auto) 3.7 % Eos % (Auto) 0.3 % Baso % (Auto) 0.1 % Neut # (Auto) 6.29 (1.40-6.50) K/uL Lymph # (Auto) 0.66 L (1.20-3.40) K/uL Sunflower # (Auto) 0.27 (0.11-0.59) K/uL Eos # (Auto) 0.02 (0.00-0.50) K/uL Baso # (Auto) 0.01 (0.00-0.20) K/uL Immature Gran # (Auto) 0.04 (0.01-0.20) K/uL PT Cancelled INR Cancelled APTT Cancelled PTT Ratio Cancelled Sodium 139 (136-145) mmol/L Potassium 4.9 (3.5-5.1) mmol/L Chloride 103 (98-107) mmol/L Carbon Dioxide 25 (21-32) mmol/L Anion Gap 11 (3-11) BUN 45 H (6-23) mg/dl Creatinine 0.98 (0.6-1.4) mg/dl Est Cr Clr Drug Dosing 61.6 ml/min Est GFR ( Amer) 81.7 ml/min Est GFR (Non-Af Amer) 70.5 ml/min BUN/Creatinine Ratio 45.9 H (10-20) Glucose 233 H (70-99(Fasting)) mg/dl Lactate 3.7 H* (0.4-2.0) mmol/L Calcium 9.2 (8.6-10.3) mg/dl Magnesium 1.6 L (1.7-2.4) mg/dl Total Bilirubin 0.8 (0.2-1.0) mg/dl AST 21 (13-39) U/L ALT 24 (7-52) U/L Alkaline Phosphatase 96 (34-104) U/L Troponin I High Sens 19.1 (0-20) pg/ml B-Natriuretic Peptide 292 H (0-100) pg/ml Total Protein 6.7 (6.0-8.3) gm/dl Albumin 3.0 L (3.4-5.0) gm/dl Globulin 3.7 (2.5-4.0) gm/dl Albumin/Globulin Ratio 0.8 L (0.9-2) Procalcitonin 0.09 (0-0.5) ng/ml Urine Color Yellow Urine Appearance Clear (Clear) Urine pH 7.5 (4.5-7.5) Ur Specific [place] 1.010 (1.000-1.030) Urine Protein Trace H (Negative) Urine Glucose (UA) Negative (Negative) Urine Ketones Trace H (Negative) Urine Blood Trace H (Negative) Urine Nitrite Negative (Negative) Urine Bilirubin Negative (Negative) Urine Urobilinogen Negative (Negative) Ur Leukocyte Esterase Trace H (Negative) Urine WBC (Auto) 10-30 H (0-5) /hpf Urine RBC (Auto) 5-10 H (0-4) /hpf U Hyaline Cast (Auto) 0 (0-5) /lpf U Epithel Cells (Auto) 5-10 H (0-5) /lpf Urine Bacteria (Auto) 4+ H (Negative) Nasal Screen MRSA (PCR) Positive A (Negative) Adenovirus (PCR) Not Detected (NotDetected) B. pertussis DNA (PCR) Not Detected (NotDetected) B.parapertussis DNA PCR Not Detected (NotDetected) C. pneumoniae DNA (PCR) Not Detected (NotDetected) Coronavirus OC43 (PCR) Not Detected (NotDetected) Coronavirus HKU1 (PCR) Not Detected (NotDetected) Coronavirus 229E (PCR) Not Detected (NotDetected) SARS-CoV-2 (PCR) DETECTED A* (NotDetected) Coronavirus NL63 (PCR) Not Detected (NotDetected) Human Metapneumovir PCR Not Detected (NotDetected) Influenza Type A (PCR) Not Detected (NotDetected) Influenza Type B (PCR) Not Detected (NotDetected) M. pneumoniae (PCR) Not Detected (NotDetected) Parainfluenza 1 (PCR) Not Detected (NotDetected) Parainfluenza 2 (PCR) Not Detected (NotDetected) Parainfluenza 3 (PCR) Not Detected (NotDetected) Parainfluenza 4 (PCR) Not Detected (NotDetected) RSV (PCR) Not Detected (NotDetected) Entero/Rhino (PCR) Not Detected (NotDetected) Administered Medications Benzonatate (Benzonatate 100 Mg Capsule) 100 mg PO TID PRN PRN Reason: cough Stop: 07/20/23 20:59 Last Admin: 06/20/23 23:21 Dose: 100 mg Documented By: ISAI Brimonidine Tartrate (Brimonidine Tartrate 0.2% 5ml) 1 drops OPL BID RONAN Stop: 07/20/23 20:59 Last Admin: 06/21/23 08:33 Dose: 1 drops Documented By: Admin: 06/20/23 23:21 Dose: 1 drops Documented By: ISAI Dorzolamide/Timolol (Dorzolamide/Timolol 22.3/6.8mg/Ml 10 Ml Btl) 1 drops OPL BID RONAN Stop: 07/20/23 20:59 Last Admin: 06/21/23 08:33 Dose: 1 drops Documented By: Admin: 06/20/23 23:21 Dose: 1 drops Documented By: ISAI Ezetimibe (Ezetimibe 10 Mg Tab) 10 mg PO HS [facility] Stop: 07/20/23 20:59 Last Admin: 06/20/23 23:19 Dose: 10 mg Documented By: ISAI Fluticasone Propionate (Fluticasone Propionate Na Spr 16 Gm Btl) 2 sprays NA Q24H RONAN Stop: 07/20/23 21:59 Last Admin: 06/20/23 23:19 Dose: 2 sprays Documented By: ISAI Furosemide (Furosemide 40 Mg/4 Ml Vial) 40 mg IV BID17 RONAN Stop: 07/20/23 17:29 Last Admin: 06/20/23 19:32 Dose: 40 mg Documented By: LAZARA Guaifenesin (Guaifenesin 600 Mg Tabcr) 1,200 mg PO Q12 RONAN Stop: 07/20/23 20:59 Last Admin: 06/21/23 08:34 Dose: 1,200 mg Documented By: Admin: 06/20/23 23:21 Dose: 1,200 mg Documented By: ISAI Vancomycin HCl 750 mg/ Sodium (Chloride) 265 mls @ 200 mls/hr IV Q12H RONAN Stop: 06/28/23 08:59 Last Infusion: 06/21/23 11:11 Dose: Infused Documented By: Admin: 06/21/23 09:45 Dose: 200 mls/hr Documented By: DOUG Cefepime HCl 2,000 mg/ Syringe 20 mls @ 5 mls/min IV Q8H [facility]; Protocol Stop: 06/26/23 00:00 Last Admin: 06/21/23 10:39 Dose: 5 mls/min Documented By: Admin: 06/20/23 23:21 Dose: 5 mls/min Documented By: ISAI Insulin Aspart (Insulin Aspart Per Unit Charge) 0 units SC ACHS [facility] Stop: 07/20/23 17:13 Last Admin: 06/21/23 13:29 Dose: 8 units Documented By: MARCELLE Co-signed By: ADRIANE Admin: 06/21/23 09:02 Dose: 6 units Documented By: MARCELLE Co-signed By: ADRIANE Admin: 06/20/23 23:04 Dose: 6 units Documented By: ISAI Co-signed By: BERNY Admin: 06/20/23 19:32 Dose: 5 units Documented By: LAZARA Co-signed By: LULU Magnesium Oxide (Magnesium Oxide 400 Mg Tab) 400 mg PO BID [facility] Stop: 07/20/23 20:59 Last Admin: 06/21/23 08:35 Dose: 400 mg Documented By: Admin: 06/20/23 23:21 Dose: 400 mg Documented By: ISAI Metoprolol Succinate (Metoprolol Succ 50mg Ext Rel Tab) 100 mg PO BID [facility] Stop: 07/20/23 20:59 Last Admin: 06/21/23 08:34 Dose: 100 mg Documented By: Admin: 06/20/23 23:20 Dose: 100 mg Documented By: ISAI Pantoprazole Sodium (Pantoprazole 40 Mg Tab) [facility] [place] Stop: 07/21/23 08:59 Last Admin: 06/21/23 08:34 Dose: 40 mg Documented By: MARCELLE Prednisone (Prednisone 50 Mg Tab) 50 mg PO DAILY [facility] Stop: 07/21/23 08:59 Last Admin: 06/21/23 09:35 Dose: 50 mg Documented By: MARCELLE Simvastatin (Simvastatin 40 Mg Tab) 40 mg PO HS [facility]; Protocol Stop: 07/20/23 20:59 Last Admin: 06/20/23 23:20 Dose: 40 mg Documented By: ISAI Sodium Chloride (Sodium Chloride 0.65% Na Soln 45 Ml ([place])) 2 sprays LUPE DAILY RONAN Stop: 07/21/23 08:59 Last Admin: 06/21/23 13:29 Dose: Not Given Documented By: MARCELLE Spironolactone (Spironolactone 12.5 Mg Tab) 12.5 mg PO DAILY RONAN Stop: 07/21/23 08:59 Last Admin: 06/21/23 08:34 Dose: 12.5 mg Documented By: MARCELLE Terazosin HCl (Terazosin Hcl 1 Mg Cap) 2 mg PO DAILY RONAN Stop: 07/21/23 08:59 Last Admin: 06/21/23 08:34 Dose: 2 mg Documented By: MARCELLE Travoprost (Travoprost Z 0.004% Oph Soln 2.5 Ml Btl) 1 drops OPB HS [facility] Stop: 07/20/23 20:59 Last Admin: 06/20/23 23:21 Dose: 1 drops Documented By: ISAI Discontinued Medications Dexamethasone (Dexamethasone Sod Inj 4 Mg/Ml Vial) 6 mg IV NOW STA Stop: 06/20/23 17:05 Last Admin: 06/20/23 17:33 Dose: 6 mg Documented By: AUSTIN Furosemide (Furosemide 40 Mg/4 Ml Vial) 40 mg IV NOW STA Stop: 06/20/23 14:20 Last Admin: 06/20/23 14:40 Dose: 40 mg Documented By: AMRITA Cefepime HCl (Maxipime) 2,000 mg in 20 mls @ 5 mls/min IV NOW STA; Protocol Stop: 06/20/23 14:22 Last Admin: 06/20/23 15:54 Dose: 5 mls/min Documented By: SOLITARIO Magnesium Sulfate/Dextrose (Magnesium Sulfate / D5w) 1 gm in 100 mls @ 100 mls/hr IV NOW STA Stop: 06/20/23 16:10 Last Infusion: 06/20/23 22:57 Dose: Infused Documented By: Admin: 06/20/23 15:57 Dose: 100 mls/hr Documented By: SOLITARIO Vancomycin HCl 2,250 mg/ (Sodium Chloride) 545 mls @ 200 mls/hr IV NOW STA Stop: 06/20/23 19:50 Last Infusion: 06/20/23 22:57 Dose: Infused Documented By: Admin: 06/20/23 17:34 Dose: 200 mls/hr Documented By: AUSTIN Phytonadione 2.5 mg/ Dextrose 50.25 mls @ 100.5 mls/hr IV ONE ONE Stop: 06/20/23 20:17 Last Infusion: 06/20/23 22:57 Dose: Infused Documented By: Admin: 06/20/23 20:18 Dose: 100.5 mls/hr Documented By: LAZARA Metoprolol Tartrate (Metoprolol Tartrate 1 Mg/Ml Vial) 5 mg IV NOW STA Stop: 06/20/23 15:03 Last Admin: 06/20/23 15:49 Dose: 5 mg Documented By: SOLITARIO Imaging Data Radiologist's Impression: Chest X-Ray 06/20/23 14:19 XR chest 1V portable CLINICAL HISTORY: Dyspnea. COMPARISON STUDY: Chest CT April 21, 2023. Chest radiograph May 22, 2023. FINDINGS: There are median sternotomy wires. Moderate cardiomegaly is unchanged. There is no radiographic evidence for pulmonary edema. Small right pleural effusion has decreased in size since prior exam. Bibasilar opacities have slightly improved. IMPRESSION: 1. Small right pleural effusion, decreased in size since prior exam. Persistent bibasilar opacities, also improved since prior study. 2. Cardiomegaly. No evidence for pulmonary edema. ACT 112: Negative or not required by law. Electronically signed by: Anurag Pandey M.D. 06/20/2023 2:59 PM Discharge Plan Visit Data Chief Complaint: Shortness of Breath/Dyspnea Stated Complaint: LEG EDEMA, SOB ED Provider: Jayme Cummings Discharge Problem: Acute exacerbation of CHF (congestive heart failure), Atrial fibrillation, Pneumonia due to COVID-19 virus, UTI (urinary tract infection) Patient Disposition: Admitted As Inpatient Discharge Instructions Interventions: ED Discharge Assessment Last Done: 06/20/23 17:13 Discharge Problem: Acute exacerbation of CHF (congestive heart failure) Qualifiers: Heart failure type: unspecified Qualified Code(s): I50.9 - Heart failure, unspecified Atrial fibrillation Qualifiers: Atrial fibrillation type: unspecified chronic Qualified Code(s): I48.20 - Chronic atrial fibrillation, unspecified UTI (urinary tract infection) Qualifiers: Urinary tract infection type: site unspecified
[2023-06-20] MEDS ORDERED: FUROSEMIDE 40 MG/4 ML VIAL IV STA (14:19)
[2023-06-20] MEDS ORDERED: CEFEPIME 2,000 MG/20 ML VIAL IV STA (14:19)
[2023-06-20 14:34] LABS: Basophils # (auto) 0.01 K/uL (0.00-0.20); Basophils % (auto) 0.1 %; Eosinophils # (auto) 0.02 K/uL (0.00-0.50); Eosinophils % (auto) 0.3 %; Hematocrit (blood only) 34.9 % (42.0-52.0); Hemoglobin 10.7 g/dl (14.0-18.0); Immature Granulocytes # (auto) 0.04 K/uL (0.01-0.20); Immature Granulocytes % (auto) 0.5 %; Lymphocytes # (auto) 0.66 K/uL (1.20-3.40); Lymphocytes % (auto) 9.1 %; Mean Corpuscular Hgb Conc 30.7 g/dL (32.0-36.0); Mean Corpuscular Volume 87.9 fL (80.0-100.0); Mean Platelet Volume 10.9 fL (9.4-12.4); Monocytes # (auto) 0.27 K/uL (0.11-0.59); Monocytes % (auto) 3.7 %; Neutrophils # (auto) 6.29 K/uL (1.40-6.50); Neutrophils % (auto) 86.3 %; Platelet Count 247 K/uL (130-400); Red Blood Count 3.97 M/uL (4.70-6.10); White Blood Count 7.29 K/ul (4.8-10.8)
[2023-06-20 14:53] LABS: Albumin Globulin Ratio 0.8 (0.9-2); BUN Creatinine Ratio 45.9 (10-20); Bilirubin,Total 0.8 mg/dl (0.2-1.0); Calcium 9.2 mg/dl (8.6-10.3); Creatinine Clr Calc Pharmacy 61.6 ml/min; Est GFR (African American) 81.7 ml/min; Est GFR (Non-African American) 70.5 ml/min; Globulin 3.7 gm/dl (2.5-4.0); Magnesium 1.6 mg/dl (1.7-2.4); Potassium 4.9 mmol/L (3.5-5.1); Total Protein 6.7 gm/dl (6.0-8.3)
[2023-06-20 15:00] LABS: Troponin I High Sensitivity 19.1 pg/ml (0-20)
--- NOTE | 2023-06-20 15:01 | XRay Report ---
XR chest 1V portable CLINICAL HISTORY: Dyspnea. COMPARISON STUDY: Chest CT April 21, 2023. Chest radiograph May 22, 2023. FINDINGS: There are median sternotomy wires. Moderate cardiomegaly is unchanged. There is no radiogra phic evidence for pulmonary edema. Small right pleural effusion has decreased in size since prior exa m. Bibasilar opacities have slightly improved. IMPRESSION: 1. Small right pleural effusion, decreased in size since prior exam. Persistent bibasilar opacities, also improved since prior study. 2. Cardiomegaly. No evidence for pulmonary edema. ACT 112: Negative or not required by law. Electronically signed by: Anurag Pandey M.D. 06/20/2023 2:59 PM
[2023-06-20] MEDS ORDERED: METOPROLOL TARTRATE 1 MG/ML VIAL IV STA (15:02)
[2023-06-20] MEDS ORDERED: MAGNESIUM SULFATE / D5W 1 GM/100 ML BAG IV STA (15:11)
[2023-06-20 15:24] LABS: Appearance Urine Clear (Clear); Bacteria Urine Automated 4+ (Negative); Bilirubin Urine Negative (Negative); Blood Urine Trace (Negative); Cast Urine Automated 0 /lpf (0-5); Color Urine Yellow; Glucose Urine UA Negative (Negative); Ketones Urine Trace (Negative); Leukocyte Esterase Urine Trace (Negative); Nitrite Urine Negative (Negative); Urobilinogen Urine Negative (Negative); pH Urine 7.5 (4.5-7.5)
[2023-06-20 15:30] LABS: Protein Urine Trace (Negative)
[2023-06-20 16:01] LABS: Adenovirus PCR Not Detected (NotDetected); Bordetella parapertussis PCR Not Detected (NotDetected); Bordetella pertussis PCR Not Detected (NotDetected); Chlamydia pneumoniae PCR Not Detected (NotDetected); Coronavirus 229E PCR Not Detected (NotDetected); Coronavirus HKU1 PCR Not Detected (NotDetected); Coronavirus NL63 PCR Not Detected (NotDetected); Coronavirus OC43PCR Not Detected (NotDetected); Human Metapneumovirus PCR Not Detected (NotDetected); Influenza A PCR Not Detected (NotDetected); Influenza B PCR Not Detected (NotDetected); Mycoplasma pneumoniae PCR Not Detected (NotDetected); Parainfluenza Virus 1 PCR Not Detected (NotDetected); Parainfluenza Virus 2 PCR Not Detected (NotDetected); Parainfluenza Virus 3 PCR Not Detected (NotDetected); Parainfluenza Virus 4 PCR Not Detected (NotDetected); Respiratory Syncytial VirusPCR Not Detected (NotDetected); Rhinovirus/Enterovirus PCR Not Detected (NotDetected)
[2023-06-20 16:03] LABS: Coronavirus CoV-2 (COVID19)PCR DETECTED (NotDetected)
--- NOTE | 2023-06-20 16:42 | History & Physical Report ---
Date of Service June 20, 2023 Assessment & Plan (1) Pneumonia due to COVID-19 virus: (2) COVID: Plan: - Admit to med tele - Pt on bipap currently, no hypoxia, will check ABG stat - consider pulmonology consultation - start IV dexamethasone 6 mg daily, not a candidate for IV remdesivir and patient's son does not want patient given this medication - Continue supportive care including Mucinex, Tessalon Perles, incentive spirometry, flutter - IV cefepime started in the ER, will add vancomycin -Patient is MRSA positive - Lactate elevated at 2.6 initially, Mag 1.6, given 1 g IV (3) Diastolic heart failure due to valvular disease: (4) Atrial fibrillation: (5) Aortic valve stenosis: (6) prison current use of anticoagulant: Plan: - Patient appears volume overloaded in his legs with 3+ pitting edema, + JVD, requiring BiPAP for COVID-19 vs volume overload -CXR reviewed, does not show specific pulmonary edema, consider CT of the chest -BNP 292 -A-fib with heart rate in the 110s, patient was administered IV Lopressor 5 mg x 1 in the ER, monitor, appears rate controlled currently -Rate control with metoprolol succinate 100 BID - Coumadin, 3 mg daily-awaiting INR, will hold if supratherapeutic -Appears acutely volume overloaded so was given Lasix 40 mg IV in the ER, continue twice daily dosing, continue spironolactone (7) Venous insufficiency: Plan: - Worsening peripheral edema as above (8) UTI (urinary tract infection): Plan: - UA appears infected, await urine culture, follow blood culture - Continue cefepime - Larry catheter placed (9) Pernicious anemia: Plan: - chronic, stable (10) DM2 (diabetes mellitus, type 2): Plan: - At home regimen: Levemir 10 units at bedtime, sliding scale depending on diet - Will hold Levemir at this time while strict n.p.o. due to BiPAP - ISS with Accu-Navid NIELSEN - Last A1c was 7.5 on 04/22 (11) Vision loss: Plan: - numerous long standing ocular pathologies including macular degeneration, glaucoma, complicated cataract surgery, and corneal disease. Previously saw ophthalmology for painless vision loss in the right eye and partial vision loss in the left eye, patient was placed on prednisone 60 mg daily on 05/22, will hold this while patient is receiving IV dexamethasone - Likely contributing to elevated glucose DVT ppx: teds, scds, coumadin Lines: 2 PIV FEN/GI: Strict n.p.o. CODE: Full code Dispo: From home, likely to remain in the hospital x 1-2 days History of Present Illness Chief Complaint: Shortness of breath Primary Care Provider: Sourav Verde MD This is a 83 yo M with PMhx of glaucoma-right eye blindness, atrial fibrillation on chronic anticoagulation with Coumadin, postop DVT S/P IVC, aortic valve replacement, diabetes mellitus, hyperlipidemia, gout, coronary artery disease, hypertension, pernicious anemia, diastolic heart failure PETER inhibitor nephrotoxicity and other medical problems who was recently admitted at [facility] and was treated for diastolic heart failure, hematuria likely catheter induced. He was recently admitted in [facility] for back pain from 05/20/23-05/27/23 for lower back pain which was worked up by ortho spine and pain was mnaged. Pt was also seen by ophthalmology at that time due to numerous long standing ocular pathologies including macular degeneration, glaucoma and complicated cataract surgery and corneal disease where he was started on steroid tx for painless vision loss in the setting of elevated ESR. He was on Prednisone 60 mg daily and continued this through his rehab stay at [facility], currently still taking it. About 10 days ago he was discharged home and had initially been doing well. Pt's son who is at bedside admits that he had a cough himself around the time his Dad returned home, and then the patient developed similar nonproductive cough. He denies any fever, chills or sweats. In the past few days he has had increased edema in his lower legs, with dyspnea on exertion noticed about 3-4 days ago. Upon attempting to walk this morning, was significantly short of breath with just standing alone. Pt admits to a headache currently. Pt was placed on bipap in the ER due to work of breathing. He was not hypoxic. CXR reviewed showing small right pleural effusion, cardiomegaly, no evidence for pulmonary edema. EKG reviewed showing Afib with HR in the 80s, elevated at bedside with minimal efforts to sit forward in 110s. He was administered nitro 1 tab in EMS and was given Lopressor 5 mg IV here in the ER. Pt was started on cefepime IV for UA appearing infected, larry cath is already placed. Given lasix 40 mg IV, and Mag 1 mg IV. Pt appears comfortable on bipap. Allergies Allergy/AdvReac Type Severity Reaction Status Date / Time niacin Allergy Intermediate HIVES Verified 04/21/23 09:30 Home Medications Medication Instructions Recorded Confirmed Type nitroglycerin 0.4 mg sublingual 0.4 mg sublingual PRN PRN Chest 12/09/09 06/20/23 History tablet (Nitrostat) Pain ##0 terazosin 2 mg capsule 2 mg PO DAILY ##90 12/07/13 06/20/23 History bismuth subsalicylate 525 mg/15 mL 525 mg PO DAILY PRN Diarrhea ##0 10/13/15 06/20/23 History oral suspension travoprost 0.004 % eye drops 1 drp OPB HS #1 btl 10/13/15 06/20/23 History allopurinol 100 mg tablet 200 mg PO Q2D 04/21/23 06/20/23 History aspirin 81 mg chewable tablet 81 mg PO .MON/SUN/Sun04/21/23 06/20/23 History brimonidine 0.2 % eye drops 1 drp OPL BID 04/21/23 06/20/23 History dorzolamide-timolol (PF) 2 %-0.5 % 1 drp OPL BID 04/21/23 06/20/23 History eye drops in a dropperette ezetimibe 10 mg-simvastatin 40 mg 1 tab PO HS 04/21/23 06/20/23 History tablet furosemide 40 mg tablet 40 mg PO QAM 04/21/23 06/20/23 History insulin aspart U-100 100 unit/mL See Rx Instructions .Route .COMPLEX 04/21/23 06/20/23 History subcutaneous solution (Novolog U-100 Insulin aspart) insulin detemir U-100 100 unit/mL 10 unit subcut HS 04/21/23 06/20/23 History subcutaneous solution (Levemir U-100 Insulin) metformin 1,000 mg tablet 1,000 mg PO BID 04/21/23 06/20/23 History tramadol 50 mg tablet 50 mg PO Q4H PRN pain #10 tabs 05/27/23 06/20/23 Rx magnesium oxide 400 mg (241.3 mg 400 mg PO BID 06/20/23 06/20/23 History magnesium) tablet metoprolol succinate 100 mg 100 mg PO BID 06/20/23 06/20/23 History tablet,extended release 24 hr pantoprazole 40 mg tablet,delayed 40 mg PO QAM 06/20/23 06/20/23 History release prednisone 20 mg tablet 60 mg PO DAILY 06/20/23 06/20/23 History spironolactone 25 mg tablet 12.5 mg PO DAILY 06/20/23 06/20/23 History warfarin 3 mg tablet 3 mg PO DAILY 06/20/23 06/20/23 History Past Med/Surg History Medical History (Updated 06/20/23 @ 17:31 by Janny Muller PA-C) Atrial fibrillation Anemia CHF (congestive heart failure) Mitral valve stenosis HTN (hypertension) HLD (hyperlipidemia) CAD (coronary artery disease) Lumbago Surgical History (Updated 06/20/23 @ 14:24 by aJyme Cummings MD) History of cataract surgery 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" S/P AVR "2006" History of hip surgery S/P cholecystectomy Social History Smoking Status: Never smoker Hx Alcohol Use: No Hx Substance Use: No Preferred Language: Citizen Of [place] Communication Ability: Effective Materials Manager Required: No Beliefs That Will Affect Care: None Current Living Situation: Family Current Living Situation Comment: Lives with jennifer Dixon Feels Safe at Home: Yes Assistive Devices: None Review of Systems Review of Systems: Constitutional: No fever, sweats or chills, + generalized weakness and fatigue Eyes: No diplopia, no worsening or blurred vision ENT: normal hearing, no trouble swallowing Respiratory: As per HPI. + cough, no sputum, + LARRY Cardiovascular: No chest pain, tightness or palpitations Abdomen: No pain, nausea, vomiting, diarrhea or constipation Musculoskeletal: No joint pain, calf pain, + significant peripheral swelling Neurologic: + generalized weakness, no numbness/tingling, no balance problems unless worsening back pain Psychiatric: No anxiety or depression Skin: No rash or itch Physical Exam Physical Exam: General: awake, alert, answers questions, on bipap, elderly white ill appearing male Head: Normocephalic, atraumatic ENT: + cataract, + right eye does not really open throughout exam, clear discharge/watering from the left eye, Left EOMI, no pharyngeal exudate, mucous membranes moist Chest: +bipap, +wet sounding cough, +diminished breath sounds at bases, + crackles Cardiac: Irregularly irregular, soft systolic murmur, +JVD, normal peripheral pulses, + significant edema 3+ pitting Bilateral LE, good capillary refill Abdominal: NABS x 4 quadrants, soft, nondistended, nontender to palpation, no rebound or guarding Extremities: Normal inspection, 3+ pitting edema BLE, noerythema, calfs nontender to palpation Psych: Normal mood and affect Neuro: AAO x 3, strength intact bilaterally and rated 5/5, no motor deficits, speech is clear, no peripheral sensory deficits Skin: Chronic skin changes, dryness to lower extremities, no erythema Results & Data Results & Data Vital Signs (Past 12 Hours) Vital Signs Temp Pulse Pulse Resp BP BP Pulse Ox 06/20/23 15:49 100 H 122/77 06/20/23 15:49 117 H 25 H 122/77 99 06/20/23 14:33 122 H 33 H 100 06/20/23 14:16 36.4 C L 100 H 35 H 122/77 98 06/20/23 14:16 06/20/23 14:16 06/20/23 14:16 36.4 C L 107 H 35 H 122/77 97 06/20/23 14:12 100 H O2 Del Method O2 Flow Rate FiO2 06/20/23 15:49 06/20/23 15:49 CPAP 06/20/23 14:33 35 06/20/23 14:16 Nasal Cannula 4 06/20/23 14:16 Nasal Cannula 4 06/20/23 14:16 Room Air 06/20/23 14:16 Room Air 06/20/23 14:12 Laboratory Results 06/20/23 14:55 Urine Culture - Pending Urine,Straight Cath 06/20/23 14:34 Aerobic Blood Culture - Pending Blood Anaerobic Blood Culture - Pending 06/20/23 14:34 Aerobic Blood Culture - Pending Blood Anaerobic Blood Culture - Pending 06/20/23 06/20/23 06/20/23 14:55 14:34 14:13 WBC 7.29 RBC 3.97 L Hgb 10.7 L Hct 34.9 L MCV 87.9 MCH 27.0 MCHC 30.7 L RDW Std Deviation 58.0 H RDW Coeff of Radha 18.0 H Plt Count 247 MPV 10.9 Immature Gran % (Auto) 0.5 Neut % (Auto) 86.3 Lymph % (Auto) 9.1 Rapides % (Auto) 3.7 Eos % (Auto) 0.3 Baso % (Auto) 0.1 Neut # (Auto) 6.29 Lymph # (Auto) 0.66 L Rapides # (Auto) 0.27 Eos # (Auto) 0.02 Baso # (Auto) 0.01 Immature Gran # (Auto) 0.04 PT Cancelled INR Cancelled APTT Cancelled PTT Ratio Cancelled Sodium 139 Potassium 4.9 Chloride 103 Carbon Dioxide 25 Anion Gap 11 BUN 45 H Creatinine 0.98 Est Cr Clr Drug Dosing 61.6 Est GFR ( Amer) 81.7 Est GFR (Non-Af Amer) 70.5 BUN/Creatinine Ratio 45.9 H Glucose 233 H Lactate 3.7 H* Calcium 9.2 Magnesium 1.6 L Total Bilirubin 0.8 AST 21 ALT 24 Alkaline Phosphatase 96 Troponin I High Sens 19.1 B-Natriuretic Peptide 292 H Total Protein 6.7 Albumin 3.0 L Globulin 3.7 Albumin/Globulin Ratio 0.8 L Procalcitonin 0.09 Urine Color Yellow Urine Appearance Clear Urine pH 7.5 Ur Specific Friendship 1.010 Urine Protein Trace H Urine Glucose (UA) Negative Urine Ketones Trace H Urine Blood Trace H Urine Nitrite Negative Urine Bilirubin Negative Urine Urobilinogen Negative Ur Leukocyte Esterase Trace H Urine WBC (Auto) 10-30 H Urine RBC (Auto) 5-10 H U Hyaline Cast (Auto) 0 U Epithel Cells (Auto) 5-10 H Urine Bacteria (Auto) 4+ H Nasal Screen MRSA (PCR) Positive A Adenovirus (PCR) Not Detected B. pertussis DNA (PCR) Not Detected B.parapertussis DNA PCR Not Detected C. pneumoniae DNA (PCR) Not Detected Coronavirus OC43 (PCR) Not Detected Coronavirus HKU1 (PCR) Not Detected Coronavirus 229E (PCR) Not Detected SARS-CoV-2 (PCR) DETECTED A* Coronavirus NL63 (PCR) Not Detected Human Metapneumovir PCR Not Detected Influenza Type A (PCR) Not Detected Influenza Type B (PCR) Not Detected M. pneumoniae (PCR) Not Detected Parainfluenza 1 (PCR) Not Detected Parainfluenza 2 (PCR) Not Detected Parainfluenza 3 (PCR) Not Detected Parainfluenza 4 (PCR) Not Detected RSV (PCR) Not Detected Entero/Rhino (PCR) Not Detected Diagnostic Findings Chest X-Ray 06/20/23 14:19 XR chest 1V portable CLINICAL HISTORY: Dyspnea. COMPARISON STUDY: Chest CT April 21, 2023. Chest radiograph May 22, 2023. FINDINGS: There are median sternotomy wires. Moderate cardiomegaly is unchanged. There is no radiographic evidence for pulmonary edema. Small right pleural effusion has decreased in size since prior exam. Bibasilar opacities have slightly improved. IMPRESSION: 1. Small right pleural effusion, decreased in size since prior exam. Persistent bibasilar opacities, also improved since prior study. 2. Cardiomegaly. No evidence for pulmonary edema. ACT 112: Negative or not required by law. Electronically signed by: Anurag Pandey M.D. 06/20/2023 2:59 PM ECG Additional Comments: Atrial fibrillation, reviewed personally Code Status & VTE Plan Code Status Full code - discussed with pt and son at bedside VTE Prophylaxis Plan VTE Prophylaxis will be ordered: Yes Supervising Physician Co-Signing Physician Notes I have seen and examined the patient and have discussed the case with the provider above. I agree with the assessment and plan as stated with the followi ng exceptions. 83-year-old man recently on high-dose prednisone therapy with a history of atrial fibrillation on Coumadin presents with significant shortness of breath. In the last few days he had increased edema in his lower legs with dyspnea on exertion. He has been taking prednisone 60 for the past month and response to painless vision loss with an elevated ESR. He also was found to have COVID-19 infection. On exam he is in rapid ventricular response and has a possible UTI. He was started on broad-spectrum antibiotics started on IV Lasix, and given Lopressor 5 mg IV with improvement in his heart rate. Dexamethasone 6 mg IV daily will replace prednisone. It is possible that prednisone contributed to fluid retention, as a cause for acute heart failure exacerbation. He has a nega tive troponin and no ST changes to suggest acute ischemia. He does have possible UTI which this in conjunction with heart failure may be contributing to his atrial fibrillation with rapid regular response. He is MRSA positive and given his recent admission and stay in rehab vancomycin was added to cefepime with persistent bibasilar opacities seen on chest x-ray. Will plan to de- escalate this pending culture results and clinical improvement in the next 48 hours. A Larry catheter was placed and intravenous Lasix was given. BiPAP was placed and his ABG showed a respiratory alkalosis. He was hyperventilating and not hypoxic which was the reason for BiPAP. Respiratory failure improved after several hours on BiPAP and he was able to successfully come off this treatment. This was in conjunction with Lasix that caused a 1400 cc output of urine into his Larry bag within several hours. He does report some intermittent burning when he urinates. He denies any chest pain. He does report ongoing coughing and nasal congestion. He has not gotten much sleep recently. Son is at bedside and assist with history. He has not been eating recently and INR is supratherapeutic. A small dose of vitamin K was given in setting of likely poor nutritional state. 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 During last admission he was placed on prednisone 60 mg daily with an ESR and left eye vision decline. He still has some residual vision in that eye but he remained on prednisone for the last month. I discussed with this patient and his son that prednisone may have contributed to fluid retention and this heart failure exacerbation. On exam he is comfortable and lung exam is unremarkable with clear breath sounds throughout. Cardiac exam reveals S1-S2 heard with no murmurs gallops or rubs. Rate and rhythm are irregular. He does have 2+ pitting edema bilaterally in the lower extremities which according to his son, was not there until the last week or so. 1. Acute respiratory failure-resolved with BiPAP and Lasix 2. [id number] supportive care efforts. Decadron was started when patient was on BiPAP. He needs to continue steroid therapy pending further recommendations from his doping supervisor who started him on prednisone 60 mg daily. As he is not hide toxic may be able to switch back to prednisone but would not stop without a wean given several weeks of steroid dependence. In the setting of acute heart failure and edema, would work to remove steroids as soon as possible. 3. Acute on chronic diastolic heart failure-2 doses of Lasix 40 mg IV given with approximately 1.5 L out this evening. This is improving. Hold additional IV Lasix pending morning blood work and cardiology evaluation. Continue current medical therapy otherwise. 4. Atrial fibrillation with rapid ventricular response rate is improved after Lopressor IV this evening, diuresis and initial treatment in the ER. Holding warfarin given supratherapeutic INR. Continue home Toprol XL. 5. Urinary tract infection/bilateral lower lung infiltrates-Cont with broad spectrum abx pending clinical improvement and culture results. 6. Chronic steroid use-cont with prednisone 60mg PO daily. Uncertain length of course recommended, patient has plans to follow with ophthalmology. Would discuss with Dr. Stephane Rosenbaum in am (his doping supervisor) and work to reduce this slowly given edema and fluid retention issues. Vision was chronically bad even prior to the steroids being started. 7. Supratherapeutic INR on long-term anticoagulation. Vitamin K given tonight. No evidence of bleeding. Hold coumadin and trend INR in am. DO Carlo (4) Atrial fibrillation Atrial fibrillation type: persistent (not longstanding) Qualified Code(s): I48.19 - Other persistent atrial fibrillation
[2023-06-20] MEDS ORDERED: VANCOMYCIN CONSULT ACTIVE PRN (17:01)
[2023-06-20] MEDS ORDERED: DEXAMETHASONE SOD INJ 4 MG/ML VIAL IV STA (17:04)
[2023-06-20] MEDS ORDERED: VANCOMYCIN HCL 2,250 MG in SODIUM CHLORIDE 0.9% 500 ML IV STA (17:07)
[2023-06-20] MEDS ORDERED: ACETAMINOPHEN 325 MG TAB PO PRN (17:14)
[2023-06-20] MEDS ORDERED: DEXTROSE 50% 50 ML SYRINGE IV PRN (17:14)
[2023-06-20] MEDS ORDERED: CARBOHYDRATES FOR HYPOGLYCEMIA PO PRN (17:14)
[2023-06-20] MEDS ORDERED: GLUCOSE 40% GEL 15 GM TUBE PO PRN (17:14)
[2023-06-20] MEDS ORDERED: ONDANSETRON INJ 2 MG/ML 2 ML VIAL IV PRN (17:14)
[2023-06-20] MEDS ORDERED: traMADol HCL 50 MG TABLET PO PRN (17:14)
[2023-06-20] MEDS ORDERED: GLUCOSE 10 TAB/TUBE PO PRN (17:14)
[2023-06-20] MEDS ORDERED: GLUCAGON FOR INJ 1 MG VIAL SQ PRN (17:14)
[2023-06-20] MEDS ORDERED: FUROSEMIDE 40 MG/4 ML VIAL IV SCH (17:30)
[2023-06-20 17:38] LABS: Base Excess ABG 3.7 mEq/L (-9-1.8); HCO3 ABG 25 mmol/L (19-24); Oxygen Saturation ABG > 100.0 % (90-95); PCO2 ABG 27 mmHg (35-46); PO2 ABG 105 mmHg (80-95)
[2023-06-20 17:49] LABS: Allen Test Pos (Pos)
[2023-06-20 17:51] LABS: pH ABG 7.57 (7.35-7.45)
[2023-06-20 18:21] LABS: Thyroid Stimulating Hormone 0.018 uIu/ml (0.300-4.500)
[2023-06-20 18:31] LABS: Partial Thromboplastin Ratio 2.3; Partial Thromboplastin Time 65 Seconds (21-31); Prothrombin Time > 90.0 Seconds (9.0-12.0)
[2023-06-20 18:41] LABS: INR > 9.5 (0.9-1.1)
[2023-06-20 18:57] LABS: T4 Free Thyroxine 2.55 ng/dl (0.61-1.60)
[2023-06-20] MEDS: INSULIN ASPART PER UNIT CHARGE SC SCH ×2 (19:32→23:04)
[2023-06-20] MEDS ORDERED: PHYTONADIONE 2.5 MG in DEXTROSE 5% 50 ML IV ONE (19:48)
[2023-06-20 20:24] LABS: Base Excess ABG 3.3 mEq/L (-9-1.8); HCO3 ABG 28 mmol/L (19-24); Oxygen Saturation ABG 95.1 % (90-95); PCO2 ABG 41 mmHg (35-46); PO2 ABG 71 mmHg (80-95); pH ABG 7.44 (7.35-7.45)
[2023-06-20 20:26] LABS: Allen Test Pos (Pos)
[2023-06-20] MEDS ORDERED: BENZONATATE 100 MG CAPSULE PO SCH (21:00)
[2023-06-20] MEDS ORDERED: EZETIMIBE/SIMVASTATIN 10/40MG TAB PO SCH (21:00)
[2023-06-20] MEDS: EZETIMIBE 10 MG TAB PO SCH (23:19)
[2023-06-20] MEDS: FLUTICASONE PROPIONATE NA SPR 16 GM BTL SCH (23:19)
[2023-06-20] MEDS: METOPROLOL SUCC 50MG EXT REL TAB PO SCH (23:20)
[2023-06-20] MEDS: SIMVASTATIN 40 MG TAB PO SCH (23:20)
[2023-06-20] MEDS: CEFEPIME 2,000 MG in SYRINGE 0 ML IV SCH (23:21)
[2023-06-20] MEDS: BENZONATATE 100 MG CAPSULE PO PRN (23:21)
[2023-06-20] MEDS: MAGNESIUM OXIDE 400 MG TAB PO SCH (23:21)
[2023-06-20] MEDS: guaiFENesin 600 MG TABCR PO SCH (23:21)
[2023-06-20] MEDS: BRIMONIDINE TARTRATE 0.2% 5ML OPL SCH (23:21)
[2023-06-20] MEDS: DORZOLAMIDE/TIMOLOL 22.3/6.8MG/ML 10 ML BTL OPL SCH (23:21)
[2023-06-20] MEDS: TRAVOPROST Z 0.004% OPH SOLN 2.5 ML BTL OPB SCH (23:21)
--- OUTSIDE RECORDS SUMMARY | 2023-06-21 01:03 | External Medical Summary | Summary of Care ---
Author Name Unknown Organization [facility] Address [address] [place] [address] Phone [phone] Care Team Providers Care Trust Administrator Name Role Phone oSurav Verde MD Primary Care Provider + Reason for Visit * Reason Comments Dosage Adjustment Via Phone (anticoag Cl inic) Encounter Details Date Type Department Care Team (Late st Contact Info) Description 06/13/2023 6:00 PM [facility] Pharm[facility] Pharmacy, [facility] [address] [place] [address] Pharmacist1, [facility] [address] [facility] [place] [address] S/P AORTIC VALVE REPLACEMENT-[facility]* Allergies Active Allergy Reactions Criticality Noted Date Comments Niacin Er Flushing,Itching 03/29/2010 documented as of this encounter (statuses as of 06/13/2023) Medications Medication Sig Dispensed Refills Start Date [...] less than 7.0% ([facility]) INJECT 84 UNITS UNDER SKIN BEFORE BED 70 mL 5 05/28/2022 Active Furosemide 40 MG Oral Tablet (Lasix)Indications :Edema, unspecified TAKE ONE DAILY AND ADDITIONAL ONE 2 DAYS PER WEEK 120 Tablet 3 10/25/2022 Active Insulin Syringe-Needle U-100 30G X 1/2" 1 ML (BD Insulin Syringe U/F) Use with insulin 4 times a day 400 Each 3 03/06/2023 Active OneTouch Ultra In Vitro Strip (Glucose Blood)Indications: Type 2 diabetes mellitus with hemoglobin A1c goal of less than 7.0% ([facility]) Use to test blood glucose twice a day E11.9 200 Strip 3 03/06/2023 Active Insulin Aspart 100 UNIT/ML Injection Solution (NovoLOG)Indicatio ns:Type 2 diabetes mellitus with hemoglobin A1c goal of less than 7.0% ([facility]) INJECT 15 UNITS SUBCUTANEOUSLY WITH BREAKFAST 15 [...] , Sun Hold Take 1 tablet Mon, Sun, Sat. 0 05/14/2023 Active metFORMIN HCl 1000 MG Oral Tablet (Glucophage)Indica tions:Type 2 diabetes mellitus with hemoglobin A1c goal of 7.0%-8.0% ([facility]) TAKE 1 TABLET BY MOUTH IN THE MORNING AND BEFORE BEDTIME 180 Tablet 1 06/08/2023 Active documented as of this encounter (statuses as of 06/13/2023) Active Problems Problem Noted Date Diagnosed Date [...] Taxonomy. Pernicious anemia 08/03/2008 CORONARY ATHEROSCLER. OF [place]YAK CORONARY VESSEL 08/28/2006 S/P AORTIC VALVE REPLACEMENT-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 longterm current use of anticoagulant therapy 1 08/04/2002 Overview: ICD-10 update of inactive term Anticoagulation management encounter 12/18/2001 CHR ISCHEMIC HRT DIS NOS 01/22/2001 GENERAL OSTEOARTHROSIS 01/22/2001 SBE (subacute bacterial endocarditis) prophylaxi s candidate documented as of this encounter (statuses as of 06/13/2023) Resolved Problems Problem Noted Date Diagnosed Date [...] as of this encounter (statuses as of 06/13/2023) Immunizations Name Administration Dates Next Due Influenza, Whole Virus 03/20/2007 Pneumococcal Conjugate Vacc, 13 Valent (Prevnar) 06/16/2015 Pneumococcal Polysaccharide PPV23 (Pneumovax) 11/18/2007 Season Influenza, Quad, PF, Adjuvanted, 65+ Yrs, IM (FLUAD) 04/15/2020 Seasonal Influenza, PF, 6 M & above, IM , (FluLaval or Fluzone) 03/08/2018,03/26/2017 Seasonal Influenza, Quadriva lent Hd (Fluzone [...] Progress Notes * Perico Wright RPh - 06/13/2023 11:38 AM EST Patient Phone Numbers Called at 11:38 AM and Yadira unavailable. She will try to return call before 1 PM. [facility] going out weekly. INR 06/20 Perico Llamas. Dell Mancini, CACP, CDE Clinical Pharmacist [facility] 06/13/2023, 11:39 AM * Nu Guillermo OSA - 06/13/2023 10:11 AM EST Caller's name: Yadira Preferred call back number(OFFICE NUMBER FOR HH): [phone] Reason for call: Yadira from [facility] calling to see when pts INR needs drawn again. Please advise andreturn her call. Thank you, Nu Guillermo Horologist [facility] 06/13/2023,10:11 AM documented in this encounter Plan of Treatment Upcoming Encounters Date Type Department Care Team (Late st Contact Info) Description 06/20/2023 5:30 PM EST Anticoagulation Pharmacy, [facility] [address] [facility] [address] Pharmacist1, [facility] [address] [place] [address] 07/02/2023 9:15 AM EST Imaging Radiology [facility] [address] [facility] [place] [address] 07/05/2023 9:30 AM EST Laboratory Lab Mobile Phlebotomy [facility] [address] [place] [address] [facility], [facility] Mobile Home Draw [address] [place] [address] 07/19/2023 9:30 AM EST Laboratory Lab Mobile Phlebotomy [facility] [address] [place] [address] [facility], [facility] Mobile Home Draw [address] [place] [address] 08/02/2023 9:30 AM EST Laboratory Lab Mobile Phlebotomy [facility] [address] [place] [address] [facility], [facility] Mobile Home Draw [address] [place] [address] 08/16/2023 9:30 AM EST Laboratory Lab Mobile Phlebotomy [facility] [address] [place] [address] [facility], [facility] Mobile Home Draw [address] [place] [address] 08/16/2023 10:00 AM EST Imaging Radiology [facility] [address] [facility], [address] [address] 08/30/2023 9:30 AM EDT Laboratory Lab Mobile Phlebotomy [facility] [address] [place] [address] [facility], [facility] Mobile Home Draw [address] [place] [address] 10/03/2023 10:40 AM EDT Office Visit General Internal Medicine [facility] [address] [facility] [place] [address] Sourav Verde MD [address] [facility] [place] [address] Health Maintenance Due Date Last Done Comments [...] Additional history exists CKD PHOS USE SMARTSET 86171 09/22/2023 04/0 11/2022, 09/01/2021, 08/18/2020, Additional history exists HbA1c 09/26/2023 03/27/2023, 04/0 11/2022, 03/10/2022, Additional history exists GFR 11/15/2023 05/17/2023, 03/18, 09/04/2022, Additional history exists Diabetic Eye Exam 01/17/2024 01/16/2023, , 09/04/2022, Additional history exists Depression Screening 03/27/2024 03/27/2023 CKD HGB USE SMARTSET 39669 05/17/202405/17, 05/17/2023, 03/27/2023, Additional history exists Pneumococcal [...] means documented in this encounter Care Teams Trust Administrator Relationship Specialty Start Date End Date Sourav Verde MD [address] [place], [place] [address] PCP - General Internal Medicine 02/28/21 documented as of this encounter
--- OUTSIDE RECORDS SUMMARY | 2023-06-21 01:03 | External Medical Summary | Summary of Care ---
Author Name Unknown Organization [facility] Address [address] [place] [address] Phone [phone] Care Team Providers Care Conduit Helper Name Role Phone Sourav Verde MD Primary Care Provider + Reason for Visit * Reason Comments Dosage Adjustment Via Phone (anticoag Cl inic) Encounter Details Date Type Department Care Team (Late st Contact Info) Description 06/08/2023 5:10 PM [facility] Pharmacy Pharmacy, [facility] [place] [address] [place] [address] Pharmacist1, [facility] 200 [place] [address] S/P AORTIC VALVE REPLACEMENT-[facility] [facility]* Allergies Active Allergy Reactions Criticality Noted Date Comments Niacin Er Flushing,Itching 03/29/2010 documented as of this encounter (statuses as of 06/08/2023) Medications Medication Sig Dispensed Refills Start Date [...] goal of less than 7.0% ([facility]) INJECT 84 UNITS UNDER SKIN [...] goal of less than 7.0% ([facility]) Use to test blood glucose twice a day E11.9 200 Strip 3 03/06/2023 Active Insulin Aspart 100 UNIT/ML Injection Solution (NovoLOG)Indicatio ns:Type 2 diabetes mellitus with hemoglobin A1c goal of less than 7.0% ([facility]) INJECT 15 UNITS SUBCUTANEOUSLY WITH [...] as of this encounter (statuses as of 06/08/2023) Active Problems Problem Noted Date Diagnosed Date [...] Taxonomy. Pernicious anemia 08/03/2008 CORONARY ATHEROSCLER. 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 halfway current use of anticoagulant therapy 1 08/04/2002 Overview: ICD-10 update of inactive term Anticoagulation management encounter 12/18/2001 CHR ISCHEMIC HRT DIS NOS 01/22/2001 GENERAL OSTEOARTHROSIS 01/22/2001 SBE (subacute bacterial endocarditis) prophylaxi s candidate documented as of this encounter (statuses as of 06/08/2023) Resolved Problems Problem Noted Date Diagnosed Date [...] as of this encounter (statuses as of 06/08/2023) Immunizations Name Administration Dates Next Due Influenza, [...] Progress Notes * Perico Wright RPh - 06/08/2023 8:55 AM EST Patient Phone Numbers [facility]: [phone] Left message for Renae at [facility]. Renae returned call: Caller's name: Renae Preferred call back number(OFFICE NUMBER FOR ): [phone] Reason for call: Pt being d/c to home 06/09/23, will have home health but not sure which one yet. Scheduled patient to call on 06/12 for follow up. Home Phleb scheduled 06/21 for INR unless needed sooner Perico Mancini RPh, CACP, CDE Clinical Pharmacist [facility] 06/08/2023, 8:57 AM documented in this encounter Plan of Treatment Upcoming Encounters Date Type Department Care Team (Late st Contact Info) Description 06/12/2023 10:20 AM EST Office Visit General Internal Medicine [facility] [place] [address] [place] [address] Clarita Albright MD [address] [place] [address] 06/12/2023 5:10 PM EST Pharmacy Pharmacy, [facility] [place] [address] [place] [address] Pharmacist1, [facility] [address] [place] [address] 06/21/2023 9:30 AM EST Laboratory Lab Mobile Phlebotomy [facility] [address] [place] [address] [facility], [facility] Mobile Home Draw [address] [place] [address] 06/21/2023 5:30 PM EST Anticoagulation Pharmacy, [facility] [place] [address] [place] [address] Pharmacist1, [facility] [address] [place] [address] 07/02/2023 9:15 AM EST Imaging Radiology [facility] [address] [place] [address] 07/05/2023 9:30 AM EST Laboratory Lab Mobile Phlebotomy [facility] [address] [place] [address] Gmc, [facility] Mobile Home Draw [address] [place] [address] 07/19/2023 9:30 AM EST Laboratory Lab Mobile Phlebotomy [facility] [address] [place] [address] Gmc, Gml Mobile Home Draw [address] [place] [address] 08/02/2023 9:30 AM EST Laboratory Lab Mobile Phlebotomy [facility] [address] [place] [address] Gmc, G[facility] Mobile Home Draw [address] [place] [address] 08/16/2023 9:30 AM EST Laboratory Lab Mobile Phlebotomy [facility] [address] [place] [address] Gmc, Gml Mobile Home Draw [address] [place] [address] 08/16/2023 10:00 AM EST Imaging Radiology [address] [place] [address] 08/30/2023 9:30 AM EDT Laboratory Lab Mobile Phlebotomy [facility] [address], [place] [address] Gmc, Gml Mobile Home Draw [address] [place] [address] 10/03/2023 10:40 AM EDT Office Visit General Internal Medicine [facility] [place] [address] [place] [address] Sourav Verde MD [address] [place], [place] [address] Health Maintenance Due Date Last Done Comments [...] Additional history exists CKD PHOS USE SMARTSET 55076 09/22/2023 04/0 11/2022, 09/01/2021, 08/18/2020, Additional history exists HbA1c 09/26/2023 03/27/2023, 04/0 11/2022, 03/10/2022, Additional history exists GFR 11/15/2023 05/17/2023, 03/18, 09/04/2022, Additional history exists Diabetic Eye Exam 01/17/2024 01/16/2023, , 09/04/2022, Additional history exists Depression Screening 03/27/2024 03/27/2023 CKD HGB USE SMARTSET 24649 05/17/202405/17, 05/17/2023, 03/27/2023, Additional history exists Pneumococcal [...] means documented in this encounter Care Teams Conduit Helper Relationship Specialty Start Date End Date Sourav Verde MD 200 [facility], [place] [id number] PCP - General Internal Medicine 02/28/21 documented as of this encounter
--- OUTSIDE RECORDS SUMMARY | 2023-06-21 01:03 | External Medical Summary | Summary of Care ---
Author Name Unknown Organization [facility] Address [address] [place] [address] Phone [phone] Care Team Providers Care Supervisor Edging Name Role Phone Sourav Verde MD Primary Care Provider + Reason for Visit * Reason Comments Dosage Adjustment Via Phone (anticoag Cl inic) Encounter Details Date Type Department Care Team (Late st Contact Info) Description 06/12/2023 5:10 PM [facility] Pharmacy Pharmacy, [facility] [address] [place] [address] Pharmacist1, [facility] 200 [facility] [place] [address] S/P AORTIC VALVE REPLACEMENT-[facility]* Allergies Active Allergy Reactions Criticality Noted Date Comments Niacin Er Flushing,Itching 03/29/2010 documented as of this encounter (statuses as of 06/12/2023) Medications Medication Sig Dispensed Refills Start Date [...] hemoglobin A1c goal of less than 7.0% ([facility]) INJECT 84 UNITS UNDER SKIN BEFORE BED [...] hemoglobin A1c goal of less than 7.0% ([facility]) Use to test blood glucose twice a day E11.9 200 Strip 3 03/06/2023 Active Insulin Aspart 100 UNIT/ML Injection Solution (NovoLOG)Indicatio ns:Type 2 diabetes mellitus with hemoglobin A1c goal of less than 7.0% ([facility]) INJECT 15 UNITS SUBCUTANEOUSLY WITH BREAKFAST 15 [...] as of this encounter (statuses as of 06/12/2023) Active Problems Problem Noted Date Diagnosed Date [...] Taxonomy. Pernicious anemia 08/03/2008 CORONARY ATHEROSCLER. OF [place] CORONARY VESSEL 08/28/2006 S/P AORTIC VALVE REPLACEMENT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 USP current use of anticoagulant therapy 1 08/04/2002 Overview: ICD-10 update of inactive term Anticoagulation management encounter 12/18/2001 CHR ISCHEMIC HRT DIS NOS 01/22/2001 GENERAL OSTEOARTHROSIS 01/22/2001 SBE (subacute bacterial endocarditis) prophylaxi s candidate documented as of this encounter (statuses as of 06/12/2023) Resolved Problems Problem Noted Date Diagnosed Date [...] as of this encounter (statuses as of 06/12/2023) Immunizations Name Administration Dates Next Due Influenza, [...] Progress Notes * Perico Wright RPh - 06/12/2023 8:25 AM EST Patient Phone Numbers [facility]: Kieran was discharged from [facility] 06/09. He was taking Coumadin 3mg daily at [facility]. He has 4mg tablets at home so he will alternate 2mg/4mg. [facility] is coming to home tomorrow for initial appointment. Spoke to [facility] and no schedule for follow up visits yet. I will call 06/13 late afternoon for update. He has home phleb arranged every 2 weeks. I will schedule with them when [facility] is done going to home. Perico Mancini RPh, CACP, CDE Clinical Pharmacist [facility] 06/12/2023, 8:28 AM documented in this encounter Plan of Treatment Upcoming Encounters Date Type Department Care Team (Late st Contact Info) Description 06/13/2023 6:00 PM EST Pharmacy Pharmacy, [facility] [address] [place] [address] Pharmacist1, [facility] [address] [facility] [place] [address] 06/21/2023 9:30 AM EST Laboratory Lab Mobile Phlebotomy [facility] [address] [place] [address] [facility], [facility] Mobile Home Draw [address] [place] [address] 06/21/2023 5:30 PM EST Anticoagulation Pharmacy, [facility] [address] [place] [address] Pharmacist1, [facility] [address] [facility] [place] [address] 07/02/2023 9:15 AM EST Imaging Radiology [facility] 132 [facility] [place] [address] 07/05/2023 9:30 AM EST Laboratory Lab Mobile Phlebotomy [facility] [address] [place] [address] Gmc, Gml Mobile Home Draw [address] [place] [address] 07/19/2023 9:30 AM EST Laboratory Lab Mobile Phlebotomy [facility] [address] [place] [address] Gmc, Gml Mobile Home Draw [address] [place] [address] 08/02/2023 9:30 AM EST Laboratory Lab Mobile Phlebotomy [facility] [address] [place] [address] Gm, Gml Mobile Home Draw [address] [place] [address] 08/16/2023 9:30 AM EST Laboratory Lab Mobile Phlebotomy [facility] [address] [place] [address] [facility], [facility] Mobile Home Draw [address] [place] [address] 08/16/2023 10:00 AM EST Imaging Radiology [address] [address] 08/30/2023 9:30 AM EDT Laboratory Lab Mobile Phlebotomy [facility] [address] [place] [address] [facility], [facility] Mobile Home Draw [address] [place] [address] 10/03/2023 10:40 AM EDT Office Visit General Internal Medicine [facility] [address] [facility] [address] [place], [place] [address] Sourav Verde MD 200 [place] [address] Health Maintenance Due Date Last Done Comments [...] Additional history exists CKD PHOS USE SMARTSET 73271 09/22/2023 04/0 11/2022, 09/01/2021, 08/18/2020, Additional history exists HbA1c 09/26/2023 03/27/2023, 04/0 11/2022, 03/10/2022, Additional history exists GFR 11/15/2023 05/17/2023, 03/18, 09/04/2022, Additional history exists Diabetic Eye Exam 01/17/2024 01/16/2023, , 09/04/2022, Additional history exists Depression Screening 03/27/2024 03/27/2023 CKD HGB USE SMARTSET 24730 05/17/202405/17, 05/17/2023, 03/27/2023, Additional history exists Pneumococcal [...] means documented in this encounter Care Teams Supervisor Edging Relationship Specialty Start Date End Date Sourav Verde MD [address] [place] [address] PCP - General Internal Medicine 02/28/21 documented as of this encounter
--- OUTSIDE RECORDS SUMMARY | 2023-06-21 01:03 | External Medical Summary | Summary of Care ---
Author Name Unknown Organization [facility] Address [address] [place] [address] Phone [phone] Care Team Providers Care Non Morse Intercept Technician Name Role Phone Sourav Hernandez MD Primary Care Provider + Reason for Visit * Reason Comments eRx-Medication Refill Encounter Details Date Type Department Care Team (Late st Contact Info) Description 06/08/2023 Refill General Internal Medicine [facility] 200 [facility] [place] [address] Sourav Hernandez MD 200 [place] [address] Type 2 diabetes mellitus with hemoglobin A1c goal of 7.0%-8.0% ([facility]) Allergies Active Allergy Reactions Criticality Noted Date [...] PER WEEK 120 Tablet 3 3 Active Insulin Syringe-Needle U-100 30G X 1/2" 1 ML (BD Insulin Syringe U/F) Use with insulin 4 times a day 400 Each 3 3 Active OneTouch Ultra In Vitro Strip (Glucose Blood)Indication s:Type 2 diabetes mellitus with hemoglobin A1c goal of less than 7.0% ([facility]) Use to test blood glucose twice [...] Hold Take 1 tablet Mon, Wed, Sat. 0 3 Active metFORMIN HCl 1000 MG Oral Tablet (Glucophage)Kathy cations:Type 2 diabetes mellitus with hemoglobin A1c goal of 7.0%-8.0% (HCC) TAKE 1 TABLET BY MOUTH IN THE MORNING AND BEFORE BEDTIME 180 Tablet 1 3 Active metFORMIN HCl 1000 MG Oral Tablet (Glucophage)Kathy cations:Type 2 diabetes mellitus with hemoglobin A1c goal of 7.0%-8.0% (HCC) TAKE 1 TABLET BY MOUTH IN THE MORNING AND BEFORE BEDTIME 180 Tablet 1 3 06/08/20 23 Discontinued documented as of this encounter [...] Taxonomy. Pernicious anemia 08/03/2008 CORONARY ATHEROSCLER. OF [place] CORONARY VESSEL 08/28/2006 S/P AORTIC VALVE REPLACEMENT-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 long term care pharmacist current use of anticoagulant therapy 1 08/04/2002 [...] encounter Miscellaneous Notes * Telephone Encounter - Yaakov Banks [facility] - 06/08/2023 2:16 PM EST Signed Prescriptions: Disp Refills metFORMIN HCl 1000 MG Oral Tablet (Glucoph*180 Ta*1 Sig: TAKE 1 TABLET BY MOUTH IN THE MORNING AND BEFORE BEDTIMEAuthorizing Provider: SOURAV HERNANDEZ User: [email or web address] BANKS documented in this encounter Plan of Treatment Upcoming Encounters Date Type Department Care Team (Latest Contact Info) Description 06/08/2023 5:10 PM EST Pharmacy Pharmacy, [facility] [address] [place] [address] Pharmacist1, [facility] [address] [facility] [place] [address] S/P AORTIC VALVE REPLACEMENT[facility]* 06/12/2023 10:20 AM EST Office Visit General Internal Medicine [facility] [place] [address] [place] [address] Clarita Albright MD [address] [place] [address] 06/12/2023 5:10 PM EST Pharmacy Pharmacy, [facility] [place] [address] [place] [address] [address] Pharmacist1, [facility] 200 [facility] [place] [address] 06/21/2023 9:30 AM EST Laboratory Lab Mobile Phlebotomy [facility] [address] [place] [address] Gmc, Gml Mobile Home Draw [address] [place] [address] 06/21/2023 5:30 PM EST Anticoagulation Pharmacy, [facility] 200 [facility] [place] [address] Pharmacist1, [facility] 200 [facility] [place], [place] [address] 07/02/2023 9:15 AM EST Imaging Radiology [facility] [address] [place] [address] 07/05/2023 9:30 AM EST Laboratory Lab Mobile Phlebotomy [facility] [address] [place] [address] Gmc, Gml Mobile Home Draw [address] [place] [address] 07/19/2023 9:30 AM EST Laboratory Lab Mobile Phlebotomy [facility] [address] [place] [address] Gmc, Gml Mobile Home Draw [address] [place] [address] 08/02/2023 9:30 AM EST Laboratory Lab Mobile Phlebotomy [facility] [address] [place] [address] Gmc, Gml Mobile Home Draw [address] [place] [address] 08/16/2023 9:30 AM EST Laboratory Lab Mobile Phlebotomy C [address] [place] [address] Gmc, Gml Mobile Home Draw [address] [place] [address] 08/16/2023 10:00 AM EST Imaging Radiology [facility] [address] [facility] [address] [place] [address] 08/30/2023 9:30 AM EDT Laboratory Lab Mobile Phlebotomy [facility] [address] [place] [address] [facility], [facility] Mobile Home Draw [address] [place] [address] 10/03/2023 10:40 AM EDT Office Visit General Internal Medicine [facility] 200 [facility] [place] [address] Sourav Hernandez MD 200 [facility] [place] [address] Health Maintenance Due Date Last Done Comments [...] 12/15/2019, Additional history exists Albumin/Creatinine Ratio 09/22/2023 042 023, 09/01/2021, 08/18/2020, Additional history exists CKD PHOS USE SMARTSET 94280 09/22/2023 04/0 11/2022, 09/01/2021, 08/18/2020, Additional history exists HbA1c 09/26/2023 03/27/2023, 04/0 11/2022, 03/10/2022, Additional history exists GFR 11/15/2023 05/17/2023, 03/18, 09/04/2022, Additional history exists Diabetic Eye Exam 01/17/2024 01/16/2023, , 09/04/2022, Additional history exists Depression Screening 03/27/2024 03/27/2023 CKD HGB USE SMARTSET 19663 05/17/202405/17, 05/17/2023, 03/27/2023, Additional history exists Pneumococcal [...] Primary Heart valve replaced by other means Type 2 diabetes mellitus with hemoglobin A1c goal of 7.0%-8.0% (HCC) documented in this encounter Care Teams Non Morse Intercept Technician Relationship Specialty Start Date End Date Sourav Hernandez MD [address] [place] [address] PCP - General Internal Medicine 02/28/21 documented as of this encounter
--- OUTSIDE RECORDS SUMMARY | 2023-06-21 01:04 | External Medical Summary | Summary of Care ---
Author Name Unknown Organization [facility] Address [address] [place] [address] Phone [phone] Care Team Providers Care Rn Advice Name Role Phone Sourav Verde MD Primary Care Provider + Reason for Visit * Reason Onset Date Comments Returning Call 06/08/2023 Encounter Details Date Type Department Care Team (Late st Contact Info) Description 06/08/2023 Telephone Pharmacy, [facility] [address] [place] [place] [address] Pharmacist1, [facility] 200 [facility] [place] [address] Returning Call Allergies Active Allergy Reactions Criticality Noted Date [...] A1c goal of less than 7.0% ([facility]) INJECT 84 UNITS UNDER SKIN BEFORE [...] A1c goal of less than 7.0% ([facility]) Use to test blood glucose twice [...] anemia 08/03/2008 CORONARY ATHEROSCLER. OF [place] CORONARY VESSEL 08/28/2006 S/P AORTIC VALVE REPLACEMENT-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 assistant terminal manager current use of anticoagulant therapy 1 08/04/2002 [...] encounter Miscellaneous Notes * Telephone Encounter - Perico Wright RPh - 06/08/2023 11:00 AM EST See [place] note. Perico Mancini RPh, CACP, CDE Clinical Pharmacist [facility] 06/08/2023, 11:00 AM * Telephone Encounter - Carmine Greene PHARM Tech - 06/08/2023 9:36 AM EST Caller's name: Renae Preferred call back number(OFFICE NUMBER FOR ): [phone] Reason for call: Pt being d/c to home 06/09/23, will have home health but not sure which one yet. Thank you, Carmine Greene [facility] Supervisor Welding Equipment Repairer Opposing Views Telepharmacy 06/08/2023,9:36 AM documented in this encounter Plan of Treatment Upcoming Encounters Date Type Department Care Team (Latest Contact Info) Description 06/08/2023 5:10 PM EST Pharmacy Pharmacy, [facility] 200 [facility] [place] [address] Pharmacist1, [facility] 200 [facility] [place] [address] S/P AORTIC VALVE REPLACEMENT-[facility]* 06/12/2023 10:20 AM EST Office Visit General Internal Medicine [facility] [place] [address] [place] [address] Clarita Albright MD 200 [facility] [place] [address] 06/12/2023 5:10 PM EST Pharmacy Pharmacy, [facility] 200 [facility] [place] [address] Pharmacist1, [facility] [address] [place] [address] 06/21/2023 9:30 AM EST Laboratory Lab Mobile Phlebotomy [facility] [address] [place] [address] Gmc, Gml Mobile Home Draw [address] [place] [address] 06/21/2023 5:30 PM EST Anticoagulation Pharmacy, [facility] 200 [facility] [place] [address] Pharmacist1, [facility] [address] [place] [address] 07/02/2023 9:15 AM EST Imaging Radiology [address] [address] 07/05/2023 9:30 AM EST Laboratory Lab Mobile Phlebotomy [facility] [address] [place] [address] Gmc, Gml Mobile Home Draw [address] [place] [address] 07/19/2023 9:30 AM EST Laboratory Lab Mobile Phlebotomy C [address] [place] [address] Gmc, Gml Mobile Home Draw [address] [place] [address] 08/02/2023 9:30 AM EST Laboratory Lab Mobile Phlebotomy C [address] [place] [address] Gmc, Gml Mobile Home Draw [address] [place] [address] 08/16/2023 9:30 AM EST Laboratory Lab Mobile Phlebotomy C [address] [place] [address] Gmc, Gml Mobile Home Draw [address] [place] [address] 08/16/2023 10:00 AM EST Imaging Radiology [address] [address] 08/30/2023 9:30 AM EDT Laboratory Lab Mobile Phlebotomy [facility] [address] [place] [address] [facility], [facility] Mobile Home Draw [address] [place] [address] 10/03/2023 10:40 AM EDT Office Visit General Internal Medicine [facility] [place] 200 [facility] [place] [address] Sourav Verde MD 200 [facility] [place] [address] Health Maintenance Due Date Last Done Comments [...] 11/01/2020, 12/15/2019, Additional history exists Albumin/Creatinine Ratio 09/22/202309/21/2 023, 09/01/2021, 08/18/2020, Additional history exists CKD PHOS USE SMARTSET 09865 09/22/2023 04/0 11/2022, 09/01/2021, 08/18/2020, Additional history exists HbA1c 09/26/2023 03/27/2023, 04/0 11/2022, 03/10/2022, Additional history exists GFR 11/15/2023 05/17/2023, 03/18, 09/04/2022, Additional history exists Diabetic Eye Exam 01/17/2024 01/16/2023, , 09/04/2022, Additional history exists Depression Screening 03/27/2024 03/27/2023 CKD HGB USE SMARTSET 33056 05/17/202405/17, 05/17/2023, 03/27/2023, Additional history exists Pneumococcal Vaccine: 65+ Years Completed 06/16/2015, 11/18/2007, 04/22/2001 GARDASIL-HPV IMMUNIZATION SERIES Aged Out No longer eligible based on patient's age to complete this topic MENINGOCOCCAL (MENACTRA/MENVEO) Aged Out No longer eligible based on patient's age to complete this topic documented as of this encounter Medical Devices Not on filedocumented as of this encounter Care Teams Rn Advice Relationship Specialty Start Date End Date Sourav Verde MD 200 [facility] [place] [address] PCP - General Internal Medicine 02/28/21 documented as of this encounter
[2023-06-21 07:56] LABS: Hematocrit (blood only) 36.2 % (42.0-52.0); Hemoglobin 10.9 g/dl (14.0-18.0); Mean Corpuscular Hemoglobin 26.8 pg (25.0-34.0); Mean Corpuscular Hgb Conc 30.1 g/dL (32.0-36.0); Mean Corpuscular Volume 89.2 fL (80.0-100.0); Mean Platelet Volume 11.1 fL (9.4-12.4); Platelet Count 252 K/uL (130-400); RDW Coefficient of Variation 18.6 % (11.5-14.5); RDW Standard Deviation 59.6 fL (36.4-46.3); Red Blood Count 4.06 M/uL (4.70-6.10); White Blood Count 5.59 K/ul (4.8-10.8)
[2023-06-21 08:11] LABS: Calcium 9.1 mg/dl (8.6-10.3); Creatinine Clr Calc Pharmacy 56.5 ml/min; Est GFR (African American) 71.1 ml/min; Est GFR (Non-African American) 61.3 ml/min; Magnesium 1.8 mg/dl (1.7-2.4)
[2023-06-21 08:23] LABS: INR 1.7 (0.9-1.1); Prothrombin Time 18.2 Seconds (9.0-12.0)
[2023-06-21] MEDS: BRIMONIDINE TARTRATE 0.2% 5ML OPL SCH ×2 (08:33→22:02)
[2023-06-21] MEDS: DORZOLAMIDE/TIMOLOL 22.3/6.8MG/ML 10 ML BTL OPL SCH ×2 (08:33→22:02)
[2023-06-21] MEDS: TERAZOSIN HCL 1 MG CAP PO SCH (08:34)
[2023-06-21] MEDS: PANTOprazole 40 MG TAB PO SCH (08:34)
[2023-06-21] MEDS: SPIRONOLACTONE 12.5 MG TAB PO SCH (08:34)
[2023-06-21] MEDS: METOPROLOL SUCC 50MG EXT REL TAB PO SCH ×2 (08:34→22:07)
[2023-06-21] MEDS: guaiFENesin 600 MG TABCR PO SCH ×2 (08:34→22:06)
[2023-06-21] MEDS: MAGNESIUM OXIDE 400 MG TAB PO SCH ×2 (08:35→22:07)
--- NOTE | 2023-06-21 08:35 | Cardiology Consultation ---
Date of Consultation June 21, 2023 Assessment & Plan (1) Pneumonia due to COVID-19 virus: (2) UTI (urinary tract infection): (3) Diastolic heart failure due to valvular disease: (4) Atrial fibrillation: (5) correction current use of anticoagulant: Plan Assessment: 83 year old male with longstanding history of Paroxysmal atrial fibrillation, Aortic stenosis s/t mechanical AVR,severe mitral stenosis, and pulmonary HTN that presented with acute URI symptoms, A-fib with RVR and evidence of heart failure. Plan: 1. Pneumonia due to Covid 19: 2. Urinary tract infection: -As per management of hospital team with continued antibiotic therapies and supportive care. -Likely etiololgy for A-fib event in the setting of acute infectious which unfortantely precipitated his HF exacerbation. 3. Diastolic Heart failure due to valvular disease -Echocardiogram pending to assess stucture and function. known history of severe mitral stenosis as well as aortic stenosis s/p Mechanical AVR in Jun 2006 ([facility]). -Patient reports improvement in symptoms today, but continues to demonstrate mild volume overload. -Would recommend that we continue to cautiously diureses with Furosemide 40mg IV BID and reassess fluid status, I&O, renal function and electrolytes in the AM. -Continue Toprol xl and Spironolactone as part of HF regimen. 4. Atrial fibrillation: -Known history of A-fib, currently rate controlled. continue Toprol xl. -INR 1.7 today, please resume warfarin dosing and monitor closely not only A- fib, but also presence of mechanical aortic Valve. - Echocardiogram pending 5. correction use of oral AC therpy -Resume warfarin dosing and titrate as appropriate. Case has been discussed with Dr. Park. Further recommendations regarding plan of care as per his assessment. I spent a total of 30 minutes on the date of service in preparation, delivery, documentation of the care provided to the patient excluding any time spent in the performance of separately billed services. JESI Mendez [facility] Cardiology [facility] Supervising Physician Co-Signing Physician Notes Patient was seen and personally examined. Patient well-known to me from o utpatient and inpatient evaluations Patient is a complex 83-year-old male with known persistent atrial fibrillation, chronic valvular heart disease status post aortic valve replacement with residual calcific disease involving the mitral valve with moderate to severe mitral stenosis and mitral insufficiency. Recent hospitalizations with chronic back pain as well as acute visual changes treated with high-dose corticosteroids Presents now with acute worsening symptoms/pneumonia secondary to COVID-19, associated decompensated diastolic/valvular heart failure Patient responded to therapies overnight with marked respiratory improvement per patient Required transient BiPAP supplementation. Plan as outlined above we will continue IV diuretics ultimately transitioning to higher oral diuretic on discharge. Do not expect chronic lower extremity edema to resolve. Echocardiogram performed similar to prior studies with normally functioning aortic valve bioprosthesis. Heavily calcified mitral valve with moderate to severe mitral stenosis and associated elevated pulmonary pressures Cardiology will follow History of Present Illness Reason for Consultation: CHF exacerbation Requesting Physician: Fern Freitas Attending Physician: Michel Velasquez MD History of Present Illness Patient is an 83 year-old male with complex cardiac history noted below in addition to glaucoma (right eye blindness(, DM, gout, Pernicious anemia, and Farhad inhibitor nephrotoxicity that presented to the ED with complains of increased shortness of breath and lower extremity swelling over the past 3-4 days. Of note, patient was recently hospitalized 05/20-05/27 for lower back pain which was worked up by orthopedics. he was discharged for a short rehab stay at [facility] and a round of high dose steroids. Patient had been feeling well at the time of discharge from rehab. Over the course of the past week he reports having generalized malaise, body aches, some chest and sinus congestion with progressively worsening shortness of breath and lower extremity swelling prompting him to present. EKG on admission demonstrated Atrial fibrillation with RVR, rate 104bpm. Chest x-ray demonstrates small right pleural effusion, slightly smaller from prior studies and persistent bibasilar opacities, also somewhat improved. Troponin negative x3 Patient reports feeling significantly better since time of admission. He reports improvement in his breathing with only congestion. Does endorse continued leg swelling, which is not uncommon for him at baseline. For echocardiogram today. Primary Tappet Adjuster: Dr. Park. Last seen in the office 01/19/2022 Cardiac problems: 1. Aortic valve replacement in June 2006, for calcific aortic stenosis, receiving a 21 mm [facility] mechanical prosthesis. 2. Calcified mitral valve with severe mitral stenosis and Pulm HTN. 3. Atherosclerotic coronary disease status post coronary bypass grafting at time of aortic valve replacement, receiving saphenous vein graft to the obtuse marginal, saphenous vein graft to the posterior descending artery. 1. Diffuse coronary atherosclerosis. Pre-op cardiac catheterization with 50% LAD, 100% obtuse marginal, 100% right coronary artery. 4. Postoperative atrial fibrillation/flutter, controlled in sinus. On sotalol- Hx of mildly prolonged QTc (stable) 1. On warfarin, INR goal between 2.5-3.5 due to mechanical AVR 5. History of venous insufficiency, status post past DVT and chronic IVC filter implantation. 6. Hyperlipidemia. 7. Hypertension. 8. Moderate to severe pulmonary hypertension, PASP 60 mmHg, per echo 07/2021 stable compared to 09/2020 echo Allergies Allergy/AdvReac Type Severity Reaction Status Date / Time niacin Allergy Intermediate HIVES Verified 04/21/23 09:30 Home Medications Medication Instructions Recorded Confirmed Type nitroglycerin 0.4 mg sublingual 0.4 mg sublingual PRN PRN Chest 12/09/09 06/20/23 History tablet (Nitrostat) Pain ##0 terazosin 2 mg capsule 2 mg PO DAILY ##90 12/07/13 06/20/23 History bismuth subsalicylate 525 mg/15 mL 525 mg PO DAILY PRN Diarrhea ##0 10/13/15 06/20/23 History oral suspension travoprost 0.004 % eye drops 1 drp OPB HS #1 btl 10/13/15 06/20/23 History allopurinol 100 mg tablet 200 mg PO Q2D 04/21/23 06/20/23 History aspirin 81 mg chewable tablet 81 mg PO .SUN/SUN/Sun04/21/23 06/20/23 History brimonidine 0.2 % eye drops 1 drp OPL BID 04/21/23 06/20/23 History dorzolamide-timolol (PF) 2 %-0.5 % 1 drp OPL BID 04/21/23 06/20/23 History eye drops in a dropperette ezetimibe 10 mg-simvastatin 40 mg 1 tab PO HS 04/21/23 06/20/23 History tablet furosemide 40 mg tablet 40 mg PO QAM 04/21/23 06/20/23 History insulin aspart U-100 100 unit/mL See Rx Instructions .Route .COMPLEX 04/21/23 06/20/23 History subcutaneous solution (Novolog U-100 Insulin aspart) insulin detemir U-100 100 unit/mL 10 unit subcut HS 04/21/23 06/20/23 History subcutaneous solution (Levemir U-100 Insulin) metformin 1,000 mg tablet 1,000 mg PO BID 04/21/23 06/20/23 History tramadol 50 mg tablet 50 mg PO Q4H PRN pain #10 tabs 05/27/23 06/20/23 Rx magnesium oxide 400 mg (241.3 mg 400 mg PO BID 06/20/23 06/20/23 History magnesium) tablet metoprolol succinate 100 mg 100 mg PO BID 06/20/23 06/20/23 History tablet,extended release 24 hr pantoprazole 40 mg tablet,delayed 40 mg PO QAM 06/20/23 06/20/23 History release prednisone 20 mg tablet 60 mg PO DAILY 06/20/23 06/20/23 History spironolactone 25 mg tablet 12.5 mg PO DAILY 06/20/23 06/20/23 History warfarin 3 mg tablet 3 mg PO DAILY 06/20/23 06/20/23 History Patient History Medical History (Updated 06/21/23 @ 12:21 by JESI Mendez) Atrial fibrillation Anemia CHF (congestive heart failure) Mitral valve stenosis HTN (hypertension) HLD (hyperlipidemia) CAD (coronary artery disease) Lumbago Surgical History (Updated 06/20/23 @ 14:24 by Jayme Cummings MD) History of cataract surgery 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" S/P AVR "2006" History of hip surgery S/P cholecystectomy Social History Smoking Status: Never smoker Hx Alcohol Use: No Hx Substance Use: No Preferred Language: Irish Communication Ability: Effective Cement Storage Worker Required: No Beliefs That Will Affect Care: None Current Living Situation: Family Current Living Situation Comment: Lives with son- Zack Other Information That Helps Us Care for You: No Feels Safe at Home: Yes Safety Concerns: Feels Safe At This Time Assistive Devices: Cane and Walker Review of Systems Review of Systems: All systems reviewed & are unremarkable except as noted in HPI & below Physical Exam Constitutional: well developed and well nourished; no acute distress Respiratory: normal respiratory effort Auscultation: + diminished lung sounds (bilateral bases) Cardiovascular: Rate/Rhythm: + irregularly irregular Heart Sounds: + murmur Vessels: dorsalis pedis pulses present; no JVD Extremities: + edema (+2 BLE edema ) Skin: no rashes, warm and dry + dry skin Psychiatric: A+Ox3, euthymic affect Results & Data Vital Signs (Past 12 Hours) Vital Signs Temp Pulse Pulse Resp BP Pulse Ox O2 Del Method 06/21/23 07:59 36.5 C 86 16 148/64 H 97 Room Air 06/21/23 03:01 36.8 C 84 18 124/75 94 Room Air 06/20/23 22:45 107 H 06/20/23 22:45 Room Air 06/20/23 22:45 36.5 C 90 18 115/71 98 Room Air Laboratory Results Cardiac Enzymes 06/20/23 Range/Units 14:13 AST 21 (13-39) U/L Troponin I High Sens 19.1 (0-20) pg/ml B-Natriuretic Peptide 292 H (0-100) pg/ml Coagulation 06/20/23 06/20/23 06/21/23 Range/Units 14:13 17:17 07:30 PT Cancelled > 90.0 H 18.2 H APTT Cancelled 65 H B-Natriuretic Peptide 292 H (0-100) pg/ml CBC 06/20/23 06/21/23 Range/Units 14:13 07:30 WBC 7.29 5.59 (4.8-10.8) K/ul RBC 3.97 L 4.06 L (4.70-6.10) M/uL Hgb 10.7 L 10.9 L (14.0-18.0) g/dl Hct 34.9 L 36.2 L (42.0-52.0) % Plt Count 247 252 (130-400) K/uL Neut # (Auto) 6.29 (1.40-6.50) K/uL Lymph # (Auto) 0.66 L (1.20-3.40) K/uL Crane # (Auto) 0.27 (0.11-0.59) K/uL Eos # (Auto) 0.02 (0.00-0.50) K/uL Baso # (Auto) 0.01 (0.00-0.20) K/uL Comprehensive Metabolic Panel 06/20/23 06/21/23 Range/Units 14:13 07:30 Sodium 139 139 (136-145) mmol/L Potassium 4.9 4.0 (3.5-5.1) mmol/L Chloride 103 101 (98-107) mmol/L Carbon Dioxide 25 30 (21-32) mmol/L BUN 45 H 44 H (6-23) mg/dl Creatinine 0.98 1.10 (0.6-1.4) mg/dl Glucose 233 H 242 H (70-99(Fasting)) mg/dl Calcium 9.2 9.1 (8.6-10.3) mg/dl AST 21 (13-39) U/L ALT 24 (7-52) U/L Alkaline Phosphatase 96 (34-104) U/L Total Protein 6.7 (6.0-8.3) gm/dl Albumin 3.0 L (3.4-5.0) gm/dl Intake and Output 06/20/23 06/21/23 06/21/23 22:59 06:59 14:59 Intake Total 995.25 / 995.25 Output Total 2650 / 3100 450 / 3100 Balance -1654.75 / -2104.75 -450 / -2104.75 Intake: IV 695.25 / 695.25 Magnesium Sulfate / D5w 1 gm In 100 / 100 100 ml @ 100 mls/hr IV NOW STA Rx#:[id number] Phytonadione 2.5 mg In Dextrose 50.25 / 50.25 5% 50 ml @ 100.5 mls/hr IV ONE ONE Rx#:[id number] Vancomycin HCl 2,250 mg In 545 / 545 Sodium Chloride 0.9% 500 ml @ 200 mls/hr IV NOW STA Rx#: [id number] Oral 300 / 300 Output: Urine Amount (Catheter) 2650 / 3100 450 / 3100 Harper/Indwelling 2650 / 3100 450 / 3100 Other: Other Intake Source Sips Weight 84.7 kg 84.3 kg Weight Measurement Method [facility] Diagnostic Findings Echocardiogram 04/2023: Atrial fibrillation at time of exam Left ventricle normal in size moderate concentric LVH, normal LV wall motion LVEF 60-65% Left atrial is severely dilated Right atrium moderately dilated mechanical aortic valve, normal gradient Severe mitral annular calcification calcified mitral apparatus causing mitral stenosis moderate to severe mitral stenosis mild to moderate MR Moderate TR RV systolic pressure 50-60mmHg EKG today: Atrial fibrillation Nonspecific T wave abnormality Prolonged QT 406ms Rate 82 bpm (4) Atrial fibrillation Atrial fibrillation type: persistent (not longstanding) Qualified Code(s): I48.19 - Other persistent atrial fibrillation
[2023-06-21] MEDS ORDERED: dexAMETHasone 6 MG in SYRINGE 0 ML IV SCH ×2 (09:00→12:00)
[2023-06-21] MEDS ORDERED: predniSONE 20 MG TAB PO SCH (09:00)
[2023-06-21] MEDS: INSULIN ASPART PER UNIT CHARGE SC SCH ×4 (09:02→22:03)
[2023-06-21] MEDS: predniSONE 50 MG TAB PO SCH (09:35)
--- NOTE | 2023-06-21 09:42 | Pharmacy Report ---
Pharmacy PK ABX Note - Date of Service June 21, 2023 - Assessment and Plan Assessment 83 year old M receiving vancomycin/cefepime for treatment of pneumonia/UTI. Pertinent microbiologic data includes: Positive MRSA Nasal Swab, blood cultures pending, urine culture growing gram negative bacilli (final sensitivities and identification pending) Day # 2 of antimicrobial therapy. Plan Vancomycin * Loading dose: 2250 mg IV x 1 * Maintenance dose: 750 mg IV every 12 hours * Regimen is predicted to achieve target AUC/TONI of 400-600 mg/L.hr * Random level ordered for: 06/22/22 with AM labs Pharmacy will continue to follow and will adjust dose/frequency as necessary. Thank you. Pharmacy has transitioned to AUC monitoring for vancomycin. AUC/TONI is the preferred PK/PD target and is associated with decreased risk of nephrotoxicity compared to traditional trough targets.
[2023-06-21] MEDS: VANCOMYCIN HCL 750 MG in SODIUM CHLORIDE 0.9% 250 ML IV SCH ×2 (09:45→22:15)
[2023-06-21] MEDS: CEFEPIME 2,000 MG in SYRINGE 0 ML IV SCH ×2 (10:39→16:23)
[2023-06-21] MEDS: SODIUM CHLORIDE 0.65% NA SOLN 45 ML (OCEAN) NAE SCH (13:29)
--- NOTE | 2023-06-21 13:47 | Electrocardiogram Report ---
Test Reason : Blood Pressure : / mmHG Vent. Rate : 104 BPM Atrial Rate : 000 BPM P-R Int : 000 ms QRS Dur : 090 ms QT Int : 330 ms P-R-T Axes : 000 024 136 degrees QTc Int : 433 ms Poor data quality, interpretation may be adversely affected Atrial fibrillation with rapid ventricular response with premature ventricular or aberrantly conducte d complexes Abnormal ECG When compared with ECG of 22-MAY-2023 16:48, Inverted T waves have replaced nonspecific T wave abnormality in Lateral leads QT has shortened Confirmed by Andrew Kim ([id number]) on 06/21/2023 1:46:46 PM Referred By: REFERRED SELF Confirmed By:Andrew Kim
[2023-06-21] MEDS ORDERED: PHARMACY GLYCEMIC MGMT CONSULT PRN (13:50)
--- NOTE | 2023-06-21 13:51 | Hospitalist Progress Note ---
Date of Service June 21, 2023 Assessment & Plan (1) Pneumonia due to COVID-19 virus: (2) COVID: (3) Diastolic heart failure due to valvular disease: (4) Atrial fibrillation: (5) Aortic valve stenosis: Plan: Patient presented to the ED with shortness of breath and bilateral lower extremity edema Chest x-ray shows cardiomegaly; small right-sided pleural effusion. Echocardiogram shows EF of 60 to 65%; flattened septum consistent with RV pressure overload, bioprosthetic aortic valve. [id number] MRSA nares positive. Patient currently on cefepime and vancomycin for possible pneumonia. He is also getting diuresis with Lasix 40 mg twice daily. Continue supportive care including Mucinex, Tessalon Perles, incentive spirometry, flutter (6) Supratherapeutic INR: (7) [facility] current use of anticoagulant: Plan: INR on admission found to be greater than 9. Received vitamin K 2.5 mg INR improved. Plan to resume warfarin (8) UTI (urinary tract infection): Plan: Urinalysis to for infection. Gram-negative bacilli Continue cefepime. (9) Pernicious anemia: Plan: - chronic, stable (10) DM2 (diabetes mellitus, type 2): Plan: - At home regimen: Levemir 10 units at bedtime, sliding scale depending on diet - Will hold Levemir at this time while strict n.p.o. due to BiPAP - ISS with Accu-Cheks ACHS - Last A1c was 7.5 on 04/22 (11) Vision loss: Plan: - numerous long standing ocular pathologies including macular degeneration, glaucoma, complicated cataract surgery, and corneal disease. Previously saw ophthalmology for painless vision loss in the right eye and partial vision loss in the left eye, - patient was placed on prednisone 60 mg daily on 05/22 as per neurology's recommendation. The concern at that time was arteritis given elevated ESR. -Patient has not been able to follow-up with ophthalmology due to the hospitalization. Has appointment on Sunday -Will decreased prednisone to 50 mg once a day. -I discussed with patient's son Zack at bedside regarding the side effects of prednisone which includes hyperglycemia, hypertension, sodium retention, opportunistic infection. I discussed about floating tapering of the steroids every week gradually and following up with primary care doctor regarding long- term management. Abnormal thyroid function test TSH low, free T4 elevated. Patient has history of thyroid nodules Will need repeat of thyroid function test once acute illness have resolved and possible endocrine referral if indicated. DVT ppx: coumadin Lines: 2 PIV FEN/GI: Strict n.p.o. CODE: Full code Dispo: From home, admitted with acute on chronic diastolic heart failure, pneumonia and covid 19 infection. PT OT ordered. Time spent evaluating patient, direct bedside care, chart review, placing orders, interpretation of diagnostic studies, discussion with consultants, patient, and family members, as well as other required patient management activities is 50 minutes Please note the above document was generated using voice recognition software. It may contain grammatical, syntax or spelling errors. Any formal questions or concerns about the content, text or information contained within the body of this dictation should be directly addressed to the provider for clarification Admission and Anticipated Discharge Date Admission Date: June 20, 2023 Subjective Patient seen and examined at bedside. He is sitting up on the chair at the side of the bed eating. He reports that his shortness of breath has improved compared to yesterday. He denies chest pain, abdominal pain or palpitations. Review of Systems Review of Systems: All systems reviewed & are unremarkable except as noted in Subjective Physical Exam Physical Exam: Constitutional: Awake, alert oriented x 3; not in distress. Respiratory: Bilateral vesicular breath sound Cardiovascular: RRR, no murmur, no edema Vessels: no JVD or carotid bruit Chest: normal inspection of chest Abdomen: normal bowel sounds, soft, nontender, no hepatosplenomegaly Musculoskeletal: no cyanosis or clubbing, extremities motor strength 5/5 Skin: no rashes, warm and dry normal turgor Results & Data Results & Data Vital Signs (Past 12 Hours) Vital Signs Temp Pulse Resp BP Pulse Ox O2 Del Method O2 Del Method 06/21/23 11:48 36.4 C L 78 18 145/83 H 97 Room Air 06/21/23 08:00 Room Air 06/21/23 07:59 36.5 C 86 16 148/64 H 97 Room Air 06/21/23 03:01 36.8 C 84 18 124/75 94 Room Air (4) Atrial fibrillation Atrial fibrillation type: persistent (not longstanding) Qualified Code(s): I48.19 - Other persistent atrial fibrillation
--- NOTE | 2023-06-21 14:26 | Electrocardiogram Report ---
Test Reason : Blood Pressure : / mmHG Vent. Rate : 082 BPM Atrial Rate : 078 BPM P-R Int : 000 ms QRS Dur : 094 ms QT Int : 406 ms P-R-T Axes : 000 007 112 degrees QTc Int : 474 ms Atrial fibrillation Nonspecific T wave abnormality Prolonged QT Abnormal ECG When compared with ECG of 20-JUN-2023 14:07, (unconfirmed) Nonspecific T wave abnormality now evident in Inferior leads Confirmed by Andrew Kim ([id number]) on 06/21/2023 2:25:57 PM Referred By: REFERRED SELF Confirmed By:Andrew Kim
[2023-06-21] MEDS ORDERED: LANTUS PER UNIT CHARGE SQ SCH (14:30)
--- NOTE | 2023-06-21 15:07 | Pharmacy Report ---
Pharmacy Glycemic Short Note 2 - Date of Service June 21, 2023 - Glycemic Short BSG Results (Last 24 hours): 06/20/23 06/20/23 06/20/23 14:13 18:13 22:33 Glucose 233 H POC Glucose 269 H 285 H 06/21/23 06/21/23 06/21/23 07:30 07:51 11:40 Glucose 242 H POC Glucose 225 H 223 H OUTPATIENT ANTIDIABETIC REGIMEN: * Levemir 10 units SQ HS * Novolog 15 units SQ QDB, QDL * Novolog 20 units SQ QDD * metformin 100mg BID * HbA1c 7.3% 04/22/23 ASSESSMENT: * Kieran is an 83 YOM admitted with shortness of breath and a history of T2DM. Pharmacy has been consulted for glycemic management while inpatient. * He is currently ordered prednisone 50mg daily, as well as cefepime and vancomycin. He has bacteriuria and pneumonia (MRSA nares positive and Covid-19 positive). He also received dexamethasone 6mg IV x1 yesterday. * Fasting BSG this AM elevated, home dose of basal insulin given this afternoon, plan to transition to insulin NPH tomorrow morning with prednisone. Will add additional Lantus at bedtime up to ~0.3 units/kg TDD if BSGs still elevated * All BSGs above goal range, Novolog tightened to a weight based stress of 3. PLAN FOR INPATIENT GLYCEMIC CONTROL: * Hold outpatient oral diabetes medications * Basal insulin * Lantus 10 units SQ daily * Lantus 0-10 units SQ HS based on BSG (see eMAR for additional details) * Bolus insulin * NovoLog per scale ACHS or Q6hrs while NPO * Goal Range: Low 110 mg/dL - High 140 mg/dL * Correction Factor: 20 mg/dL/unit * Nutritional / Prandial insulin per carb ratio of 1 unit per 6 grams CHO consumed
[2023-06-21] MEDS: WARFARIN SOD 3 MG TAB PO SCH (17:28)
[2023-06-21] MEDS: TRAVOPROST Z 0.004% OPH SOLN 2.5 ML BTL OPB SCH (22:02)
[2023-06-21] MEDS: LANTUS PER UNIT CHARGE SQ SCH (22:04)
[2023-06-21] MEDS: FLUTICASONE PROPIONATE NA SPR 16 GM BTL SCH (22:05)
[2023-06-21] MEDS: SIMVASTATIN 40 MG TAB PO SCH (22:06)
[2023-06-21] MEDS: EZETIMIBE 10 MG TAB PO SCH (22:06)
[2023-06-21] MEDS: BENZONATATE 100 MG CAPSULE PO PRN (22:08)
[2023-06-22 07:24] LABS: Basophils # (auto) 0.02 K/uL (0.00-0.20); Basophils % (auto) 0.3 %; Eosinophils # (auto) 0.01 K/uL (0.00-0.50); Eosinophils % (auto) 0.1 %; Hemoglobin 9.9 g/dl (14.0-18.0); Immature Granulocytes # (auto) 0.02 K/uL (0.01-0.20); Immature Granulocytes % (auto) 0.3 %; Lymphocytes # (auto) 0.77 K/uL (1.20-3.40); Mean Corpuscular Hemoglobin 26.9 pg (25.0-34.0); Mean Corpuscular Volume 89.7 fL (80.0-100.0); Mean Platelet Volume 11.1 fL (9.4-12.4); Monocytes # (auto) 0.65 K/uL (0.11-0.59); Monocytes % (auto) 9.3 %; Platelet Count 233 K/uL (130-400); RDW Coefficient of Variation 18.5 % (11.5-14.5); RDW Standard Deviation 59.7 fL (36.4-46.3); Red Blood Count 3.68 M/uL (4.70-6.10); White Blood Count 6.97 K/ul (4.8-10.8)
[2023-06-22 07:26] LABS: BUN Creatinine Ratio 43.1 (10-20); Creatinine Clr Calc Pharmacy 60.9 ml/min; Est GFR (African American) 77.9 ml/min; Est GFR (Non-African American) 67.2 ml/min; Magnesium 1.9 mg/dl (1.7-2.4); Potassium 3.6 mmol/L (3.5-5.1)
[2023-06-22 07:31] LABS: INR 1.8 (0.9-1.1); Prothrombin Time 18.9 Seconds (9.0-12.0)
[2023-06-22] MEDS ORDERED: VANCOMYCIN LEVEL ONE (08:00)
[2023-06-22] MEDS: CEFEPIME 2,000 MG in SYRINGE 0 ML IV SCH ×2 (08:39)
[2023-06-22] MEDS: VANCOMYCIN HCL 750 MG in SODIUM CHLORIDE 0.9% 250 ML IV SCH ×2 (08:40→22:04)
[2023-06-22] MEDS: allopurinoL 100 MG TAB PO SCH (08:44)
[2023-06-22] MEDS: TERAZOSIN HCL 1 MG CAP PO SCH (08:45)
[2023-06-22] MEDS: METOPROLOL SUCC 50MG EXT REL TAB PO SCH ×2 (08:45→22:01)
[2023-06-22] MEDS: predniSONE 50 MG TAB PO SCH (08:45)
[2023-06-22] MEDS: guaiFENesin 600 MG TABCR PO SCH ×2 (08:45→22:02)
[2023-06-22] MEDS: SPIRONOLACTONE 12.5 MG TAB PO SCH (08:45)
[2023-06-22] MEDS: DORZOLAMIDE/TIMOLOL 22.3/6.8MG/ML 10 ML BTL OPL SCH ×2 (08:46→22:01)
[2023-06-22] MEDS: SODIUM CHLORIDE 0.65% NA SOLN 45 ML (OCEAN) NAE SCH (08:46)
[2023-06-22] MEDS: PANTOprazole 40 MG TAB PO SCH (08:46)
[2023-06-22] MEDS: MAGNESIUM OXIDE 400 MG TAB PO SCH ×2 (08:46→22:03)
[2023-06-22] MEDS: BRIMONIDINE TARTRATE 0.2% 5ML OPL SCH ×2 (08:47→22:00)
[2023-06-22] MEDS ORDERED: ASPIRIN 81 MG ECTAB PO SCH (09:00)
--- NOTE | 2023-06-22 09:01 | Cardiology Progress Note ---
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 Plan: 1. Pneumonia due to Covid 19: 2. Urinary tract infection: -As per management of hospital team with continued antibiotic therapies and supportive care. -Likely etiology for A-fib event in the setting of acute infectious which unfortunately precipitated his HF exacerbation. 3. Diastolic Heart failure due to valvular disease -Echocardiogram as noted. known history of severe mitral stenosis as well as aortic stenosis s/p Mechanical AVR in Jun 2006 ([facility]). No significant changes. -Patient reports improvement in symptoms today, but continues to demonstrate mild volume overload. -Would recommend that we continue to cautiously diureses with Furosemide 40mg IV BID and reassess fluid status, I&O, renal function and electrolytes in the AM. May be appropriate for transition to PO diuretics -Continue Toprol xl and Spironolactone as part of HF regimen. 4. Atrial fibrillation: -Known history of A-fib, currently rate controlled. continue Toprol xl. -Continue warfarin dosing and monitor closely not only A-fib, but also presence of mechanical aortic Valve. - Echocardiogram as noted above with no significant change from prior. 5. FDC use of oral AC therapy -Continue warfarin dosing and titrate as appropriate in the setting of a known mechanical aortic valve. Case has been discussed with Dr. Park. Further recommendations regarding plan of care as per his assessment. I spent a total of 30 minutes on the date of service in preparation, delivery, documentation of the care provided to the patient excluding any time spent in the performance of separately billed services. JESI Mendez [facility] Admission and Anticipated Discharge Date Admission Date: June 20, 2023 Supervising Physician Co-Signing Physician Notes Patient seen and examined, chart, medications, telemetry reviewed. Respiratory status improved. Lower extremity edema improved No chest pains no dizziness no tachypalpitations. Persistent atrial fibrillati on present. Echocardiogram without acute change from prior with normally functioning aortic valve bioprosthesis, calcific mitral valve stenosis Impression: Acute on chronic diastolic heart failure secondary to valvular heart disease exacerbated by acute COVID infection Recommendations: Stop IV furosemide. Patient appears clinically at baseline Patient previously on furosemide 40 mg daily with an additional 40 mg twice per week. Dose transiently reduced after hospitalization Would discharge on furosemide 40 mg daily with additional 40 mg 3 days/week. Continue spironolactone 12.5 mg daily CHF instructions Subjective 06/22/23: Patient seen and examined in follow up today. He is resting comfortably in bed and offers no complaints. States that his breathing continues to improve. Denies any chest pain, pressure palpitations, pre-syncope, or syncope. Labs, vitals, diagnostic testing, and medications reviewed. Telemetry overnight shows no acute events. Remains A-fib 70's-80's. Review of Systems Review of Systems: All systems reviewed & are unremarkable except as noted in HPI & below Physical Exam Constitutional: well developed and well nourished; no acute distress Respiratory: normal respiratory effort Auscultation: + diminished lung sounds (bilateral bases) Cardiovascular: Rate/Rhythm: + irregularly irregular Heart Sounds: + murmur Vessels: dorsalis pedis pulses present; no JVD Extremities: + edema (+1 BLE edema, close to patient's baseline) Skin: no rashes, warm and dry + dry skin Psychiatric: A+Ox3, euthymic affect Results & Data Vital Signs (Past 12 Hours) Vital Signs Temp Pulse Pulse Resp BP Pulse Ox O2 Del Method 06/22/23 08:00 06/22/23 07:53 36.5 C 82 17 139/75 95 Room Air 06/22/23 03:25 36.5 C 83 18 159/66 H 94 Room Air 06/21/23 22:15 36.4 C L 76 20 142/71 H 95 Room Air 06/21/23 22:05 80 O2 Del Method 06/22/23 08:00 Room Air 06/22/23 07:53 06/22/23 03:25 06/21/23 22:15 06/21/23 22:05 Laboratory Results Coagulation 06/22/23 Range/Units 06:34 PT 18.9 H (9.0-12.0) Seconds CBC 06/22/23 Range/Units 06:34 WBC 6.97 (4.8-10.8) K/ul RBC 3.68 L (4.70-6.10) M/uL Hgb 9.9 L (14.0-18.0) g/dl Hct 33.0 L (42.0-52.0) % Plt Count 233 (130-400) K/uL Neut # (Auto) 5.50 (1.40-6.50) K/uL Lymph # (Auto) 0.77 L (1.20-3.40) K/uL Lawrence # (Auto) 0.65 H (0.11-0.59) K/uL Eos # (Auto) 0.01 (0.00-0.50) K/uL Baso # (Auto) 0.02 (0.00-0.20) K/uL Comprehensive Metabolic Panel 06/22/23 Range/Units 06:34 Sodium 140 (136-145) mmol/L Potassium 3.6 (3.5-5.1) mmol/L Chloride 105 (98-107) mmol/L Carbon Dioxide 32 (21-32) mmol/L BUN 44 H (6-23) mg/dl Creatinine 1.02 (0.6-1.4) mg/dl Glucose 171 H (70-99(Fasting)) mg/dl Calcium 9.0 (8.6-10.3) mg/dl Intake and Output 06/21/23 06/22/23 06/22/23 22:59 06:59 14:59 Intake Total 360 / 890 265 / 890 265 / 265 Output Total 600 / 901 301 / 901 Balance -240 / -11 -36 / -11 265 / 265 Intake: IV 265 / 530 265 / 265 Vancomycin HCl 750 mg In Sodium 265 / 530 265 / 265 Chloride 0.9% 250 ml @ 200 mls /hr IV Q12H [facility] Rx#:[id number] Oral 360 / 360 Output: Urine Amount (Catheter) 600 / 900 300 / 900 Harper/Indwelling 600 / 900 300 / 900 # Bowel Movements Other: Other Intake Source sips Weight 83.8 kg Weight Measurement Method Built in [facility] Diagnostic Findings Echocardiogram 06/21/2023: left ventricle normal in size, moderate LVH flattened septum consistent with RV pressure overload No regional wall motion abnormalities EF 60-65% Left atrium severely dilated bioprosthetic aortic valve normal gradients severe mitral annular calcification calcified mitral apparatus causing mitral stenosis moderate to severe mitral stenosis mild to moderate MR mild TR right ventricular systolic pressure >60mmHg (4) Atrial fibrillation Atrial fibrillation type: persistent (not longstanding) Qualified Code(s): I48.19 - Other persistent atrial fibrillation
[2023-06-22] MEDS: INSULIN ASPART PER UNIT CHARGE SC SCH ×4 (09:56→21:54)
[2023-06-22] MEDS: INSULIN HUMAN NPH SC SCH (09:57)
--- NOTE | 2023-06-22 12:52 | Hospitalist Progress Note ---
Date of Service June 22, 2023 Assessment & Plan (1) Pneumonia due to COVID-19 virus: (2) COVID: (3) Diastolic heart failure due to valvular disease: (4) Atrial fibrillation: (5) Aortic valve stenosis: Plan: Patient presented to the ED with shortness of breath and bilateral lower extremity edema Chest x-ray shows cardiomegaly; small right-sided pleural effusion. Echocardiogram shows EF of 60 to 65%; flattened septum consistent with RV pressure overload, bioprosthetic aortic valve. [id number] MRSA nares positive. Patient currently on ceftriaxone and vancomycin for possible pneumonia. Plan to treat for 7 days He is also getting diuresis with Lasix 40 mg twice daily. Continue supportive care including Mucinex, Tessalon Perles, incentive spirometry, flutter (6) Supratherapeutic INR: (7) group home current use of anticoagulant: Plan: INR on admission found to be greater than 9. Received vitamin K 2.5 mg INR improved. Plan to resume warfarin (8) UTI (urinary tract infection): Plan: Urinalysis to for infection. Urine culture positive for Klebsiella pneumoniae Cefepime changed to ceftriaxone (9) Pernicious anemia: Plan: - chronic, stable (10) DM2 (diabetes mellitus, type 2): Plan: - At home regimen: Levemir 10 units at bedtime, sliding scale depending on diet - Will hold Levemir at this time while strict n.p.o. due to BiPAP - ISS with Accu-Cheks ACHS - Last A1c was 7.5 on 04/22 (11) Vision loss: Plan: - numerous long standing ocular pathologies including macular degeneration, glaucoma, complicated cataract surgery, and corneal disease. Previously saw ophthalmology for painless vision loss in the right eye and partial vision loss in the left eye, - patient was placed on prednisone 60 mg daily on 05/22 as per neurology's recommendation. The concern at that time was arteritis given elevated ESR. -Patient has not been able to follow-up with ophthalmology due to the hospitalization. Has appointment on Sunday -Will decreased prednisone to 50 mg once a day. -I discussed with patient's son Zack at bedside regarding the side effects of prednisone which includes hyperglycemia, hypertension, sodium retention, opportunistic infection. I discussed about floating tapering of the steroids every week gradually and following up with primary care doctor regarding long- term management. -Plan to obtain referral to rheumatology at discharge. Plan to taper prednisone by 50 mg once a day for 1 week, 40 mg once a day for 1 week, 30 mg once a day for 1 week, 20 mg once a day for 1 week, 10 mg once a day for 1 week, 5 mg once a day for 1 week and 2.5 mg for 1 week. Needs to follow-up with primary care doctor regarding the tapering and obtaining rheumatology referral. Abnormal thyroid function test TSH low, free T4 elevated. Patient has history of thyroid nodules Will need repeat of thyroid function test once acute illness have resolved and possible endocrine referral if indicated. DVT ppx: coumadin Lines: 2 PIV FEN/GI: Strict n.p.o. CODE: Full code Dispo: From home, admitted with acute on chronic diastolic heart failure, pneumonia and covid 19 infection. PT OT ordered. Time spent evaluating patient, direct bedside care, chart review, placing orders, interpretation of diagnostic studies, discussion with consultants, patient, and family members, as well as other required patient management activities is 50 minutes Please note the above document was generated using voice recognition software. It may contain grammatical, syntax or spelling errors. Any formal questions or concerns about the content, text or information contained within the body of this dictation should be directly addressed to the provider for clarification Admission and Anticipated Discharge Date Admission Date: June 20, 2023 Subjective Patient seen and examined at bedside. Is lying down comfortably on the bed; not in distress. He denies any shortness of breath or discomfort. Review of Systems Review of Systems: All systems reviewed & are unremarkable except as noted in Subjective Physical Exam Physical Exam: Constitutional: Awake, alert oriented x 3; not in distress. Respiratory: Bilateral vesicular breath sound Cardiovascular: RRR, no murmur, no edema Vessels: no JVD or carotid bruit Chest: normal inspection of chest Abdomen: normal bowel sounds, soft, nontender, no hepatosplenomegaly Musculoskeletal: no cyanosis or clubbing, extremities motor strength 5/5 Skin: no rashes, warm and dry normal turgor Results & Data Results & Data Vital Signs (Past 12 Hours) Vital Signs Temp Pulse Pulse Resp BP Pulse Ox O2 Del Method 06/22/23 10:50 85 06/22/23 08:00 06/22/23 07:53 36.5 C 82 17 139/75 95 Room Air 06/22/23 03:25 36.5 C 83 18 159/66 H 94 Room Air O2 Del Method 06/22/23 10:50 06/22/23 08:00 Room Air 06/22/23 07:53 06/22/23 03:25 (4) Atrial fibrillation Atrial fibrillation type: persistent (not longstanding) Qualified Code(s): I48.19 - Other persistent atrial fibrillation
--- NOTE | 2023-06-22 13:43 | Pharmacy Report ---
Pharmacy PK ABX Note - Date of Service June 22, 2023 - Assessment and Plan Assessment 06/22: Vancomycin day 3: Reviewed vancomycin trough, level predicting AUC/TONI within goal range. Urine culture resulted Klebsiella pneumoniae johnson-sensitive. D/W provider, will change cefepime to ceftriaxone. Still covering for bacterial pneumonia, continue vancomycin for now. Patient is afebrile, WBC WNL. Renal function stable. 06/21: 83 year old M receiving vancomycin/cefepime for treatment of pneumonia/UTI. Pertinent microbiologic data includes: Positive MRSA Nasal Swab, blood cultures pending, urine culture growing gram negative bacilli (final sensitivities and identification pending) Day # 3 of antimicrobial therapy. Plan Vancomycin * Maintenance dose: 750 mg IV every 12 hours * Regimen is predicted to achieve target AUC/TONI of 400-600 mg/L.hr * Random level to be ordered if continued beyond the weekend or based on clinical status * Daily serum creatinine ordered. Pharmacy will continue to follow and will adjust dose/frequency as necessary. Thank you. Pharmacy has transitioned to AUC monitoring for vancomycin. AUC/TONI is the preferred PK/PD target and is associated with decreased risk of nephrotoxicity compared to traditional trough targets.
--- NOTE | 2023-06-22 14:41 | Pharmacy Report ---
Pharmacy Glycemic Short Note 2 - Date of Service June 22, 2023 - Glycemic Short BSG Results (Last 24 hours): 06/21/23 06/21/23 06/22/23 15:31 20:03 06:34 Glucose 171 H POC Glucose 309 H* 219 H 06/22/23 06/22/23 07:45 11:45 Glucose POC Glucose 193 H 134 H OUTPATIENT ANTIDIABETIC REGIMEN: * Levemir 10 units SQ HS * Novolog 15 units SQ QDB, QDL * Novolog 20 units SQ QDD * metformin 100mg BID * HbA1c 7.3% 04/22/23 ASSESSMENT: 06/21 * Kieran received 52 units of insulin yesterday (15 were basal) * Fasting BSG this AM slightly above goal range. Initiated insulin NPH (0.3units/kg) with prednisone 50mg daily for help with prandial coverage due to steroids. Continue with Lantus scale at bedtime to cover for basal needs. * BSGs in 200's yesterday, better controlled today. Continue current Novolog parameters with addition of prandial coverage with NPH. Adjust as needed. 06/20 * Kieran is an 83 YOM admitted with shortness of breath and a history of T2DM. Pharmacy has been consulted for glycemic management while inpatient. * He is currently ordered prednisone 50mg daily, as well as cefepime and vancomycin. He has bacteriuria and pneumonia (MRSA nares positive and Covid-19 positive). He also received dexamethasone 6mg IV x1 yesterday. * Fasting BSG this AM elevated, home dose of basal insulin given this afternoon, plan to transition to insulin NPH tomorrow morning with prednisone. Will add additional Lantus at bedtime up to ~0.3 units/kg TDD if BSGs still elevated * All BSGs above goal range, Novolog tightened to a weight based stress of 3. PLAN FOR INPATIENT GLYCEMIC CONTROL: * Hold outpatient oral diabetes medications * Basal insulin * Insulin NPH 25 units SQ daily with prednisone * Lantus 0-10 units SQ HS based on BSG (see eMAR for additional details) * Bolus insulin * NovoLog per scale ACHS or Q6hrs while NPO * Goal Range: Low 110 mg/dL - High 140 mg/dL * Correction Factor: 20 mg/dL/unit * Nutritional / Prandial insulin per carb ratio of 1 unit per 6 grams CHO consumed
[2023-06-22] MEDS: cefTRIAXone SODIUM 2,000 MG in DEXTROSE 5 % MINI-B 50 ML IV SCH (15:43)
[2023-06-22] MEDS: WARFARIN SOD 3 MG TAB PO SCH (15:44)
[2023-06-22] MEDS: TRAVOPROST Z 0.004% OPH SOLN 2.5 ML BTL OPB SCH (22:01)
[2023-06-22] MEDS: SIMVASTATIN 40 MG TAB PO SCH (22:02)
[2023-06-22] MEDS: EZETIMIBE 10 MG TAB PO SCH (22:02)
[2023-06-22] MEDS: LANTUS PER UNIT CHARGE SQ SCH (22:10)
[2023-06-22] MEDS: FLUTICASONE PROPIONATE NA SPR 16 GM BTL SCH (22:11)
[2023-06-23 06:36] LABS: Eosinophils # (auto) 0.01 K/uL (0.00-0.50); Eosinophils % (auto) 0.2 %; Hematocrit (blood only) 32.3 % (42.0-52.0); Hemoglobin 10.1 g/dl (14.0-18.0); Immature Granulocytes # (auto) 0.03 K/uL (0.01-0.20); Immature Granulocytes % (auto) 0.5 %; Lymphocytes # (auto) 0.74 K/uL (1.20-3.40); Lymphocytes % (auto) 12.8 %; Mean Corpuscular Hemoglobin 27.6 pg (25.0-34.0); Mean Corpuscular Hgb Conc 31.3 g/dL (32.0-36.0); Mean Corpuscular Volume 88.3 fL (80.0-100.0); Mean Platelet Volume 11.1 fL (9.4-12.4); Monocytes % (auto) 8.6 %; Neutrophils # (auto) 4.52 K/uL (1.40-6.50); Neutrophils % (auto) 77.9 %; Platelet Count 218 K/uL (130-400); RDW Coefficient of Variation 18.4 % (11.5-14.5); RDW Standard Deviation 58.4 fL (36.4-46.3); Red Blood Count 3.66 M/uL (4.70-6.10)
[2023-06-23 06:49] LABS: BUN Creatinine Ratio 39.8 (10-20); Calcium 9.1 mg/dl (8.6-10.3); Creatinine Clr Calc Pharmacy 63.4 ml/min; Est GFR (African American) 81.7 ml/min; Est GFR (Non-African American) 70.5 ml/min; Magnesium 1.9 mg/dl (1.7-2.4)
[2023-06-23 07:51] LABS: INR 3.1 (0.9-1.1); Prothrombin Time 31.3 Seconds (9.0-12.0)
[2023-06-23] MEDS: INSULIN ASPART PER UNIT CHARGE SC SCH ×4 (08:40→21:47)
[2023-06-23] MEDS: guaiFENesin 600 MG TABCR PO SCH ×2 (08:56→22:19)
[2023-06-23] MEDS: BENZONATATE 100 MG CAPSULE PO PRN (08:57)
[2023-06-23] MEDS: predniSONE 50 MG TAB PO SCH (08:57)
[2023-06-23] MEDS: SPIRONOLACTONE 12.5 MG TAB PO SCH (08:57)
[2023-06-23] MEDS: MAGNESIUM OXIDE 400 MG TAB PO SCH ×2 (08:57→22:18)
[2023-06-23] MEDS: PANTOprazole 40 MG TAB PO SCH (08:57)
[2023-06-23] MEDS: METOPROLOL SUCC 50MG EXT REL TAB PO SCH ×2 (08:57→22:18)
[2023-06-23] MEDS: TERAZOSIN HCL 1 MG CAP PO SCH (08:57)
[2023-06-23] MEDS: SODIUM CHLORIDE 0.65% NA SOLN 45 ML (OCEAN) NAE SCH (08:58)
[2023-06-23] MEDS: DORZOLAMIDE/TIMOLOL 22.3/6.8MG/ML 10 ML BTL OPL SCH ×2 (08:58→22:16)
[2023-06-23] MEDS: BRIMONIDINE TARTRATE 0.2% 5ML OPL SCH ×2 (08:58→22:15)
[2023-06-23] MEDS: VANCOMYCIN HCL 750 MG in SODIUM CHLORIDE 0.9% 250 ML IV SCH ×2 (09:07→22:12)
[2023-06-23] MEDS: INSULIN HUMAN NPH SC SCH (09:10)
--- NOTE | 2023-06-23 13:54 | Hospitalist Progress Note ---
Date of Service June 23, 2023 Assessment & Plan (1) Pneumonia due to COVID-19 virus: (2) COVID: (3) Diastolic heart failure due to valvular disease: (4) Atrial fibrillation: (5) Aortic valve stenosis: Plan: Patient presented to the ED with shortness of breath and bilateral lower extremity edema Chest x-ray shows cardiomegaly; small right-sided pleural effusion. Echocardiogram shows EF of 60 to 65%; flattened septum consistent with RV pressure overload, bioprosthetic aortic valve. [id number] MRSA nares positive. Patient currently on ceftriaxone and vancomycin for possible pneumonia. Plan to treat for 7 days Patient was diuresed with Lasix 40 mg twice daily. Discussed with cardiology; Lasix dose decreased to 40 mg once a day and 40 mg 3 times a week. Continue supportive care including Mucinex, Tessalon Perles, incentive spirometry, flutter (6) Supratherapeutic INR: (7) care home current use of anticoagulant: Plan: INR on admission found to be greater than 9. Received vitamin K 2.5 mg INR improved. Hold Coumadin as INR is 2.1 today. (8) UTI (urinary tract infection): Plan: Urinalysis to for infection. Urine culture positive for Klebsiella pneumoniae Cefepime changed to ceftriaxone. Plan to treat for 7 days (9) Pernicious anemia: Plan: - chronic, stable (10) DM2 (diabetes mellitus, type 2): Plan: - At home regimen: Levemir 10 units at bedtime, sliding scale depending on diet - Will hold Levemir at this time while strict n.p.o. due to BiPAP - ISS with Accu-Cheks ACHS - Last A1c was 7.5 on 04/22 (11) Vision loss: Plan: - numerous long standing ocular pathologies including macular degeneration, glaucoma, complicated cataract surgery, and corneal disease. Previously saw ophthalmology for painless vision loss in the right eye and partial vision loss in the left eye, - patient was placed on prednisone 60 mg daily on 05/22 as per neurology's recommendation. The concern at that time was arteritis given elevated ESR. -Patient has not been able to follow-up with ophthalmology/PCP due to the hospitalization. Has appointment on Sunday -Will decreased prednisone to 50 mg once a day. -I discussed with patient's son Zack at bedside regarding the side effects of prednisone which includes hyperglycemia, hypertension, sodium retention, opportunistic infection. I discussed about floating tapering of the steroids every week gradually and following up with primary care doctor regarding long- term management. -Plan to obtain referral to rheumatology at discharge. Plan to taper prednisone by 50 mg once a day for 1 week, 40 mg once a day for 1 week, 30 mg once a day for 1 week, 20 mg once a day for 1 week, 10 mg once a day for 1 week, 5 mg once a day for 1 week and 2.5 mg for 1 week. Needs to follow-up with primary care doctor regarding the tapering and obtaining rheumatology referral. Abnormal thyroid function test TSH low, free T4 elevated. Patient has history of thyroid nodules Will need repeat of thyroid function test once acute illness have resolved and possible endocrine referral if indicated. DVT ppx: coumadin Lines: 2 PIV FEN/GI: Carb consistent CODE: Full code Dispo: From home, admitted with acute on chronic diastolic heart failure, pneumonia and covid 19 infection. PT OT recommends home. Discharge in next 1 to 2 days. Time spent evaluating patient, direct bedside care, chart review, placing orders, interpretation of diagnostic studies, discussion with consultants, patient, and family members, as well as other required patient management activities is 50 minutes Please note the above document was generated using voice recognition software. It may contain grammatical, syntax or spelling errors. Any formal questions or concerns about the content, text or information contained within the body of this dictation should be directly addressed to the provider for clarification Admission and Anticipated Discharge Date Admission Date: June 20, 2023 Subjective Patient seen and examined at bedside. He is comfortable; not in distress. He is sitting at the side of the bed. Denies fever, chills, chest pain, shortness of breath, abdominal pain or urinary symptoms. No significant overnight events Review of Systems Review of Systems: All systems reviewed & are unremarkable except as noted in Subjective Physical Exam Physical Exam: Constitutional: Awake, alert oriented x 3; not in distress. Respiratory: Bilateral vesicular breath sound Cardiovascular: RRR, no murmur, no edema Vessels: no JVD or carotid bruit Chest: normal inspection of chest Abdomen: normal bowel sounds, soft, nontender, no hepatosplenomegaly Musculoskeletal: no cyanosis or clubbing, extremities motor strength 5/5 Skin: no rashes, warm and dry normal turgor Results & Data Results & Data Vital Signs (Past 12 Hours) Vital Signs Temp Pulse Pulse Resp BP Pulse Ox O2 Del Method 06/23/23 11:52 36.5 C 62 18 106/64 96 Room Air 06/23/23 08:50 Room Air 06/23/23 07:59 36.6 C 69 18 137/66 94 Room Air 06/23/23 05:57 72 06/23/23 03:00 36.5 C 72 16 147/79 H 98 Room Air (4) Atrial fibrillation Atrial fibrillation type: persistent (not longstanding) Qualified Code(s): I48.19 - Other persistent atrial fibrillation
[2023-06-23] MEDS: cefTRIAXone SODIUM 2,000 MG in DEXTROSE 5 % MINI-B 50 ML IV SCH (17:46)
[2023-06-23] MEDS ORDERED: LANTUS PER UNIT CHARGE SQ SCH (21:00)
[2023-06-23] MEDS: TRAVOPROST Z 0.004% OPH SOLN 2.5 ML BTL OPB SCH (22:16)
[2023-06-23] MEDS: SIMVASTATIN 40 MG TAB PO SCH (22:18)
[2023-06-23] MEDS: FLUTICASONE PROPIONATE NA SPR 16 GM BTL SCH (22:19)
[2023-06-23] MEDS: EZETIMIBE 10 MG TAB PO SCH (22:19)
[2023-06-24] MEDS: INSULIN ASPART PER UNIT CHARGE SC SCH ×4 (00:55→11:59)
[2023-06-24 07:31] LABS: Basophils # (auto) 0.01 K/uL (0.00-0.20); Basophils % (auto) 0.1 %; Eosinophils # (auto) 0.02 K/uL (0.00-0.50); Eosinophils % (auto) 0.3 %; Hematocrit (blood only) 34.1 % (42.0-52.0); Hemoglobin 10.2 g/dl (14.0-18.0); Immature Granulocytes # (auto) 0.03 K/uL (0.01-0.20); Immature Granulocytes % (auto) 0.4 %; Lymphocytes % (auto) 13.4 %; Mean Corpuscular Hgb Conc 29.9 g/dL (32.0-36.0); Mean Corpuscular Volume 90.2 fL (80.0-100.0); Mean Platelet Volume 11.5 fL (9.4-12.4); Monocytes # (auto) 0.63 K/uL (0.11-0.59); Monocytes % (auto) 9.4 %; Neutrophils # (auto) 5.12 K/uL (1.40-6.50); Neutrophils % (auto) 76.4 %; Platelet Count 226 K/uL (130-400); RDW Coefficient of Variation 18.4 % (11.5-14.5); RDW Standard Deviation 60.4 fL (36.4-46.3); Red Blood Count 3.78 M/uL (4.70-6.10); White Blood Count 6.71 K/ul (4.8-10.8)
[2023-06-24 07:57] LABS: INR 4.3 (0.9-1.1); Prothrombin Time 42.9 Seconds (9.0-12.0)
[2023-06-24 08:04] LABS: Calcium 9.3 mg/dl (8.6-10.3); Creatinine Clr Calc Pharmacy 72.3 ml/min; Est GFR (African American) 92.3 ml/min; Est GFR (Non-African American) 79.6 ml/min; Magnesium 1.9 mg/dl (1.7-2.4); Potassium 4.8 mmol/L (3.5-5.1)
[2023-06-24] MEDS ORDERED: FUROSEMIDE 40 MG TAB PO SCH (09:00)
[2023-06-24] MEDS ORDERED: INSULIN HUMAN NPH SC SCH (09:00)
[2023-06-24] MEDS: allopurinoL 100 MG TAB PO SCH (09:53)
[2023-06-24] MEDS: VANCOMYCIN HCL 750 MG in SODIUM CHLORIDE 0.9% 250 ML IV SCH (09:53)
[2023-06-24] MEDS: PANTOprazole 40 MG TAB PO SCH (09:54)
[2023-06-24] MEDS: TERAZOSIN HCL 1 MG CAP PO SCH (09:54)
[2023-06-24] MEDS: predniSONE 50 MG TAB PO SCH (09:54)
[2023-06-24] MEDS: guaiFENesin 600 MG TABCR PO SCH (09:54)
[2023-06-24] MEDS: DORZOLAMIDE/TIMOLOL 22.3/6.8MG/ML 10 ML BTL OPL SCH (09:54)
[2023-06-24] MEDS: SPIRONOLACTONE 12.5 MG TAB PO SCH (09:54)
[2023-06-24] MEDS: BRIMONIDINE TARTRATE 0.2% 5ML OPL SCH (09:54)
[2023-06-24] MEDS: MAGNESIUM OXIDE 400 MG TAB PO SCH (09:55)
[2023-06-24] MEDS: SODIUM CHLORIDE 0.65% NA SOLN 45 ML (OCEAN) NAE SCH (09:55)
[2023-06-24] MEDS: METOPROLOL SUCC 50MG EXT REL TAB PO SCH (09:55)
--- NOTE | 2023-06-24 13:30 | Discharge Summary ---
Date of Service June 24, 2023 Admission HPI Per Admitting Provider This is a 83 yo M with PMhx of glaucoma-right eye blindness, atrial fibrillation on chronic anticoagulation with Coumadin, postop DVT S/P IVC, aortic valve replacement, diabetes mellitus, hyperlipidemia, gout, coronary artery disease, hypertension, pernicious anemia, diastolic heart failure PETER inhibitor nephrotoxicity and other medical problems who was recently admitted at [facility] and was treated for diastolic heart failure, hematuria likely catheter induced. He was recently admitted in [facility] for back pain from 05/20/23-05/27/23 for lower back pain which was worked up by ortho spine and pain was mnaged. Pt was also seen by ophthalmology at that time due to numerous long standing ocular pathologies including macular degeneration, glaucoma and complicated cataract surgery and corneal disease where he was started on steroid tx for painless vision loss in the setting of elevated ESR. He was on Prednisone 60 mg daily and continued this through his rehab stay at [facility], currently still taking it. About 10 days ago he was discharged home and had initially been doing well. Pt's son who is at bedside admits that he had a cough himself around the time his Dad returned home, and then the patient developed similar nonproductive cough. He denies any fever, chills or sweats. In the past few days he has had increased edema in his lower legs, with dyspnea on exertion noticed about 3-4 days ago. Upon attempting to walk this morning, was significantly short of breath with just standing alone. Pt admits to a headache currently. Pt was placed on bipap in the ER due to work of breathing. He was not hypoxic. CXR reviewed showing small right pleural effusion, cardiomegaly, no evidence for pulmonary edema. EKG reviewed showing Afib with HR in the 80s, elevated at bedside with minimal efforts to sit forward in 110s. He was administered nitro 1 tab in EMS and was given Lopressor 5 mg IV here in the ER. Pt was started on cefepime IV for UA appearing infected, larry cath is already placed. Given lasix 40 mg IV, and Mag 1 mg IV. Pt appears comfortable on bipap. Admission Exam Per Admitting Provider General: awake, alert, answers questions, on bipap, elderly white ill appearing male Head: Normocephalic, atraumatic ENT: + cataract, + right eye does not really open throughout exam, clear dis charge/watering from the left eye, Left EOMI, no pharyngeal exudate, mucous membranes moist Chest: +bipap, +wet sounding cough, +diminished breath sounds at bases, + crackles Cardiac: Irregularly irregular, soft systolic murmur, +JVD, normal peripheral pulses, + significant edema 3+ pitting Bilateral LE, good capillary refill Abdominal: NABS x 4 quadrants, soft, nondistended, nontender to palpation, no rebound or guarding Extremities: Normal inspection, 3+ pitting edema BLE, noerythema, calfs nontender to palpation Psych: Normal mood and affect Neuro: AAO x 3, strength intact bilaterally and rated 5/5, no motor deficits, speech is clear, no peripheral sensory deficits Skin: Chronic skin changes, dryness to lower extremities, no erythema Principal Diagnosis COVID-19 infection UTI Supratherapeutic INR Discharge Exam Constitutional: Awake, alert oriented x 3; not in distress. Respiratory: Bilateral vesicular breath sound Cardiovascular: RRR, no murmur, no edema Vessels: no JVD or carotid bruit Chest: normal inspection of chest Abdomen: normal bowel sounds, soft, nontender, no hepatosplenomegaly Musculoskeletal: no cyanosis or clubbing, extremities motor strength 5/5 Skin: no rashes, warm and dry normal turgor Discharge Data Allergies Allergy/AdvReac Type Severity Reaction Status Date / Time niacin Allergy Intermediate HIVES Verified 04/21/23 09:30 Consultations 06/20/23 15:11 ED Decision to Admit Stat 06/20/23 16:30 Consult Cardiology Routine Hospital Course (1) Pneumonia due to COVID-19 virus: (2) COVID: (3) Diastolic heart failure due to valvular disease: (4) Atrial fibrillation: (5) Aortic valve stenosis: Patient presented to the ED with shortness of breath and bilateral lower extremity edema Chest x-ray shows cardiomegaly; small right-sided pleural effusion. Echocardiogram shows EF of 60 to 65%; flattened septum consistent with RV pressure overload, bioprosthetic aortic valve. 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 During the hospitalization patient was treated with ceftriaxone and vancomycin for possible pneumonia. At discharge, he was placed on Augmentin. Patient was diuresed with IV Lasix 40 mg twice daily. At discharge; patient was placed on Lasix 40 mg once a day and 40 mg 3 times a week. (6) Supratherapeutic INR: (7) halfway current use of anticoagulant: INR on admission found to be greater than 9. Received vitamin K 2.5 mg INR was 4.3 at discharge. Patient recommended to hold Coumadin till his primary care follow-up which is in 2 days (8) UTI (urinary tract infection): Urinalysis to for infection. Urine culture positive for Klebsiella pneumoniae Discharged on Augmentin for 4 more days (9) Vision loss: - numerous long standing ocular pathologies including macular degeneration, glaucoma, complicated cataract surgery, and corneal disease. Previously saw ophthalmology for painless vision loss in the right eye and partial vision loss in the left eye, - patient was placed on prednisone 60 mg daily on 05/22 as per neurology's recommendation. The concern at that time was arteritis given elevated ESR. -Patient has not been able to follow-up with ophthalmology/PCP due to the hospitalization. Has appointment on Sunday -Will decreased prednisone to 50 mg once a day. -I discussed with patient's son Zack at bedside regarding the side effects of prednisone which includes hyperglycemia, hypertension, sodium retention, opportunistic infection. I discussed about tapering of the steroids every week gradually and following up with primary care doctor and rheumatology regarding long-term management. -Plan to obtain referral to rheumatology after discharge.. Plan to taper prednisone by 50 mg once a day for 1 week, 40 mg once a day for 1 week, 30 mg once a day for 1 week, 20 mg once a day for 1 week, 10 mg once a day for 1 week, 5 mg once a day for 1 week and 2.5 mg for 1 week. Needs to follow-up with primary care doctor regarding the tapering and obtaining rheumatology referral. Abnormal thyroid function test TSH low, free T4 elevated. Patient has history of thyroid nodules Will need repeat of thyroid function test once acute illness have resolved and possible endocrine referral if indicated. I went over the discharge instruction with patient's son at bedside. He was agreeable with the plan. Answered questions/queries. Please note the above document was generated using voice recognition software. It may contain grammatical, syntax or spelling errors. Any formal questions or concerns about the content, text or information contained within the body of this dictation should be directly addressed to the provider for clarification Total Time Total Time Spent Total Time Spent (In Minutes): 45 Total Time Includes: Examination of the Patient, Discharge Planning, Medication Reconciliation, Communication With Other Providers and Other Discharge Plan Discharge Items Patient Disposition: Home - Self-Care Reason For Visit: CHF EXACERBATION, +COVID Discharge Diagnosis: COVID-19 infection CHF exacerbation Activity: Resume your previous activity Non-emergency contact: Primary Care Provider Call non-emergency contact if: you have any medication questions Follow-up/Referrals: Saranya Cordero MD [Outside Practitioners] - 06/27/23 11:00 am Diet: Regular Addtl Attending Provider Instructions: You were admitted to the hospital due to shortness of breath. The cause for the shortness of breath is COVID-19 infection and heart failure. You are also found to have UTI. You are prescribed Augmentin twice a day for 4 more days to complete the antibiotic course for the UTI. For the heart failure; you were evaluated by cardiology during the hospitalization. They recommend following changes to your Lasix regimen: 1) Take Lasix 40 mg daily in the morning. 2) Take an additional 40 mg daily in the afternoon on Sunday and Sunday (3 times a week) You were restarted on prednisone during the last hospitalization for concern of inflammation of the arteries. It was thought as one of the reason for the vision loss. You are started on the taper as follows: Take 50 mg(5 tablets) once a day for 4 days, then Take 40 mg (4 tablets) once a day for 7 days Take 30 mg (3 tablets) once a day for 7 days Take 20 mg (2 tablets)once a day for 7 days Take 10 mg (1 tablet) once a day for 7 days Take 5 mg (half tablet) once a day for 7 days Take 2.5 mg once a day for 7 days. (The prescription for 2.5 mg of prednisone has not been sent. Please discuss with your primary care doctor to send the prescription .) Please follow-up with your primary care doctor as scheduled on June,. Please discussed about obtaining a rheumatology referral for further evaluation of the possible arteritis. Your INR was found to be on the higher side. It was 4.3 today. Please continue to hold INR till you see your primary care doctor. You need to have adjustment to the dose of the Coumadin. Your thyroid function test was abnormal during the hospitalization. Please also repeat the thyroid function test in 4 weeks. You might need endocrinology referral depending on the results. Pending Studies at Discharge: No Stand-Alone Forms: [facility], Smoking Cessation Medications and DC Order Prescriptions: New furosemide 40 mg Tablet 40 mg PO 3XWK Qty: 30 0RF prednisone 10 mg tablet See Taper PO DIRECTED Qty: 94 0RF Taper: Taper, Blank 50 mg DAILY for 4 Days 40 mg DAILY for 7 Days 30 mg DAILY for 7 Days 20 mg DAILY for 7 Days 10 mg DAILY for 7 Days 5 mg DAILY for 7 Days Rx Instructions: see taper instructions amoxicillin-pot clavulanate 875-125 mg tablet 1 tab PO BID 4 Days Qty: 8 0RF Continued nitroglycerin [Nitrostat] 0.4 mg Tablet, Sublingual 0.4 mg sublingual PRN PRN (Reason: Chest Pain) Qty: 0 terazosin 2 mg Capsule 2 mg PO DAILY Qty: 90 travoprost 0.004 % Drops 1 drp OPB HS Qty: 1 bismuth subsalicylate 525 mg/15 mL Suspension 525 mg PO DAILY PRN (Reason: Diarrhea) Qty: 0 metoprolol succinate 100 mg tablet extended release 24 hr 100 mg PO BID spironolactone 25 mg tablet 12.5 mg PO DAILY magnesium oxide 400 mg (241.3 mg magnesium) tablet 400 mg PO BID pantoprazole 40 mg tablet,delayed release (DR/EC) 40 mg PO QAM prednisone 20 mg tablet 60 mg PO DAILY furosemide 40 mg tablet 40 mg PO QAM allopurinol 100 mg tablet 200 mg PO Q2D insulin aspart U-100 [Novolog U-100 Insulin aspart] 100 unit/mL solution See Rx Instructions .ROUTE .COMPLEX Rx Instructions: 15 Units with breakfast, 15 Units with lunch, 20 Units with dinner metformin 1,000 mg tablet 1,000 mg PO BID brimonidine 0.2 % drops 1 drp OPL BID aspirin 81 mg tablet,chewable 81 mg PO .MON/WED/FRI ezetimibe-simvastatin 10-40 mg tablet 1 tab PO HS Levemir U-100 Insulin 100 unit/mL solution 10 unit SUBCUT HS dorzolamide-timolol (PF) 2-0.5 % dropperette 1 drp OPL BID tramadol 50 mg Tablet 50 mg PO Q4H PRN (Reason: pain) Qty: 10 0RF Held warfarin 3 mg tablet 3 mg PO DAILY Hold Instructions: Resume on 06/27/23. Till you see your primary care doctor and repeat PT/INR Discharge Orders: Discharge Order (Routine); Ordered 06/24/23 Ordered By: Michel Velasquez Admission Data Admit Date/Time: 06/20/23 16:30 Attending Provider: Michel Velasquez Admit Provider: Amisha Matos Primary Care Provider: Sourav Verde Other Providers: Amisha Matos; [place] Other Interventions: Discharge Summary Assessment (RN) Last Done: 06/24/23 10:39
[2023-06-24] MEDS ORDERED: LANTUS PER UNIT CHARGE SQ SCH (21:00)
[2023-06-24] MEDS ORDERED: LANTUS PER UNIT CHARGE SC SCH (21:00)
== END 2023-06-24 13:55 | disposition home health service (06) | DRG 177 ==
LOC: ED 14:02 → EDINP 16:30 → SUATTDRO 16:30 → 2S 17:13

== ENCOUNTER 2023-07-08 08:09 | Inpatient (IN) ==
--- OUTSIDE RECORDS SUMMARY | 2023-07-08 08:14 | External Medical Summary | Summary of Care ---
Author Name Unknown Organization [facility] Address [address] [place] [address] Phone [phone] Care Team Providers Care Supervisor Chassis Assembly Name Role Phone Sourav Verde MD Primary Care Provider + Reason for Referral * Evaluate & Treat - Unlimited Visits (Within 30 days (routine)) - Pending Review Specialty Diagnoses / Procedures Referred By Contyordy t Referred To Contact Rheumatology Diagnoses Elevated sed rate Sudden loss of vision, bilateral Saranya Cordero MD [address] [facility] [place] [address] Referral ID Status Reason Start Date Expiration Date Visits Requested Visits Authorized [id number] Pending Review Specialty Services Required 06/27/[phone] Question Answer Referral Priority Within 30 days (routine) Where should this appointment be scheduled? [facility] Reason for referral: Other Conditions Comments Painful sudden loss of vision on both eyes 1 months with high sed rate . Put on high prednisolone for ? [facility] . Eval Reason for Visit * Reason Onset Date Comments Hospital Follow-Up The pt stated he is here to follow up after a recent discharge from [facility] on 06/24/2023 Hospital Follow-Up 06/27/2023 Encounter Details Date Type Department Care Team (Late st Contact Info) Description 06/27/2023 11:00 AM EST Office Visit General Internal Medicine [place] [place] [address] [place] [address] Saranya Cordero MD [address] [facility] [place] [address] Pneumonia due to COVID-19 virus*; S/P AORTIC VALVE REPLACEMENT-[place]; COVID-19 virus infection; Pulmonary HTN ([facility]); Type 2 diabetes mellitus with stage 3a chronic kidney disease, with long-term current use of insulin ([facility]); SBE (subacute bacterial endocarditis) prophylaxis candidate; Primary open angle glaucoma of both eyes, unspecified glaucoma stage; Type 2 diabetes mellitus with hemoglobin A1c goal of less than 7.0% ([facility]); Paroxysmal atrial fibrillation ([facility]); HTN, goal below 140/90; History of basal cell carcinoma of skin; GENERAL OSTEOARTHROSIS; DYSLIPIDEMIA, GOAL LDL BELOW 70; Atherosclerosis of [place] coronary artery of [place] heart without angina pectoris; Moderate mitral regurgitation; CHR ISCHEMIC HRT DIS NOS; Chronic diastolic congestive heart failure ([facility]); Obesity, Class I, BMI 30.0-34.9 (see actual BMI); Pernicious anemia; Nonrheumatic mitral valve stenosis; Current use of insulin ([facility]); Aortocoronary bypass status; PETER inhibitor nephrotoxicity; Central retinal vein occlusion with macular edema of right eye; Acute on chronic diastolic CHF (congestive heart failure) ([facility]); Hospital discharge follow-up; Acute on chronic diastolic (congestive) heart failure ([facility]); Edema, unspecified type; Elevated sed rate; Sudden loss of vision, bilateral; HTN, goal below 140/80; Mitral valve stenosis, unspecified etiology Allergies Active Allergy Reactions Criticality Noted Date Comments Niacin Er Flushing,Itching 03/29/2010 documented as of this encounter (statuses as of 07/05/2023) Medications Medication Sig Dispensed Refills Start Date End Date Status NITROGLYCERIN 0.4 MG SL SUBLIndications: Chronic ischemic heart disease one tab under tongue as needed for chest pain maximum 3 dose 25 5 07/20/19 09 Active ONE TOUCH ULTRASOFT LANCETS MISC Check glucose two times a day Dx 250.00 100 Each 5 01/27/20 15 Active dorzolamide-adrian lol (COSOPT OCUMETER PLUS) 2.23-0.68% ophthalmic solution 2 08/06/19 16 Active ONETOUCH ULTRASOFT LANCETS MISC CHECK GLUCOSE TWO TIMES A DAY DX E11.29 300 Each 1 09/19/19 18 Active Bromfenac Sodium 0.07 % Ophthalmic Solution One drop daily in left eye 0 06/28/20 18 Active zoster vac recomb adjuvanted (SHINGRIX) 50 MCG/0.5ML injection Inject 0.5 mL into a large muscle now and repeat dose in 60 to 180 days 1 Each 1 06/13/20 19 Active Additional Information Patient not taking.Reported on 05/17/2023 Rocklatan 0.02-0.005 % Ophthalmic Solution (Netarsudil-Deena noprost) Instill 2 Drops into the left eye daily. 0 Active Brimonidine Tartrate 0.15 % Ophthalmic Solution (Alphagan P) Instill 1 Drop into the left eye in the morning and 1 Drop at noon and 1 Drop before bedtime. 0 12/24/19 21 Active Levemir 100 UNIT/ML Subcutaneous Solution (insulin Detemir)Indicati ons:Type 2 diabetes mellitus with hemoglobin A1c goal of less than 7.0% (HCC) INJECT 84 UNITS UNDER SKIN BEFORE BED 70 mL 5 05/28/20 22 Active Additional Information Patient taking differently: INJECT 10 UNITS UNDER SKIN BEFORE BED, Reported on 06/27/2023 Insulin Syringe-Needle U-100 30G X 1/2" 1 ML (BD Insulin Syringe U/F) Use with insulin 4 times a day 400 Each 3 03/06/20 23 Active OneTouch Ultra In Vitro Strip (Glucose Blood)Indication s:Type 2 diabetes mellitus with hemoglobin A1c goal of less than 7.0% (HCC) Use to test blood glucose twice a day E11.9 200 Strip 3 03/06/20 23 Active Aspirin 81 MG Oral Tablet Chewable (Aspirin Low Dose)Indications :Chronic ischemic heart disease,S/P aortic valve replacement,Paro xysmal atrial fibrillation (HCC) TAKE 1 TABLET 3 TIMES A WEEK 40 Tablet 3 03/13/20 23 Active Allopurinol 100 MG Oral Tablet (Zyloprim)Indica tions:Gout TAKE 2 TABLETS BY MOUTH EVERY DAY 180 Tablet 1 05/14/20 23 Active Metoprolol Succinate ER 100 MG Oral Tablet Extended Release 24 Hour (toPROL XL) Take 1 Tablet by mouth in the morning and 1 Tablet before bedtime. 0 Active Warfarin Sodium 4 MG Oral Tablet (Coumadin) Take 1 Tablet by mouth in the morning. Take 0.5 tablets on Sun, Tu, Sun Hold Take 1 tablet Mon, Wed, Sat. 0 05/14/20 23 Active metFORMIN HCl 1000 MG Oral Tablet (Glucophage)Kathy cations:Type 2 diabetes mellitus with hemoglobin A1c goal of 7.0%-8.0% (HCC) TAKE 1 TABLET BY MOUTH IN THE MORNING AND BEFORE BEDTIME 180 Tablet 1 06/08/20 23 Active Amoxicillin-Pot Clavulanate 875-125 MG Oral Tablet (Augmentin) 1 Tablet. 0 06/24/19 24 Active diazePAM 2 MG Oral Tablet (Valium) TAKE 1 TABLET BY MOUTH TWICE A DAY FOR SPASMS 0 Active Magnesium Oxide -Mg Supplement 400 (240 Mg) MG Oral Tablet (Mag-Ox) TAKE 1 TABLET BY MOUTH TWICE A DAY FOR SUPPLEMENT 0 06/12/20 23 Active predniSONE 20 MG Oral Tablet (Deltasone) 3 Tablets. 0 05/27/20 23 Active Spironolactone 25 MG Oral Tablet (Aldactone) 0.5 Tablets. 0 05/04/20 23 Active traMADol HCl 50 MG Oral Tablet (Ultram) Take 1 Tablet by mouth every 6 hours as needed. 0 Active Terazosin HCl 2 MG Oral CapsuleIndicatio ns:HTN, goal below 140/80,Mitral valve stenosis, unspecified etiology Take 1 Capsule by mouth in the morning. HOLD UNTIL DIRECTED. 0 06/27/19 24 Active Furosemide 40 MG Oral Tablet (Lasix)Indicatio ns:Acute on chronic diastolic (congestive) heart failure (HCC),Edema, unspecified type Take one daily and additional one at noon daily. 0 06/27/19 24 Active Furosemide 40 MG Oral Tablet (Lasix)Indicatio ns:Edema, unspecified TAKE ONE DAILY AND ADDITIONAL ONE 2 DAYS PER WEEK 120 Tablet 3 10/26/19 23 024 Discontinued(Re fill) Insulin Aspart 100 UNIT/ML Injection Solution (NovoLOG)Indicat ions:Type 2 diabetes mellitus with hemoglobin A1c goal of less than 7.0% (HCC) INJECT 15 UNITS SUBCUTANEOUSLY WITH BREAKFAST 15 UNITS WITH LUNCH AND 20 UNITS WITH SUPPER DAILY 40 mL 1 03/14/20 23 024 Discontinued(Re fill) Terazosin HCl 2 MG Oral CapsuleIndicatio ns:HTN, goal below 140/80,Mitral stenosis TAKE 1 CAPSULE BY MOUTH EVERY DAY 90 Capsule 1 05/14/20 23 024 Discontinued(Re fill) Lantus 100 UNIT/ML Subcutaneous Solution INJECT 35 UNITS SUBCUTANEOUSLY AT BEDTIME 0 06/12/20 23 024 Discontinued Furosemide 40 MG Oral Tablet (Lasix)Indicatio ns:Acute on chronic diastolic (congestive) heart failure (HCC),Edema, unspecified type Take one daily and additional one at noon on Mon-Wed and Fri. 0 06/27/19 24 024 Discontinued(Re fill) documented as of this encounter (statuses as of 07/05/2023) Active Problems Problem Noted Date Diagnosed Date Acute on chronic diastolic (congestive) heart fa ilure 06/27/2023 Moderate mitral regurgitation 05/17/2023 Pulmonary HTN 03/27/2023 [...] Taxonomy. Pernicious anemia 08/03/2008 CORONARY ATHEROSCLER. OF [place] CORONARY VESSEL 08/28/2006 S/P AORTIC VALVE REPLACEMENT-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 current use of anticoagulant therapy 1 08/04/2002 Overview: ICD-10 update of inactive term Anticoagulation management encounter 12/18/2001 CHR ISCHEMIC HRT DIS NOS 01/22/2001 GENERAL OSTEOARTHROSIS 01/22/2001 SBE (subacute bacterial endocarditis) prophylaxi s candidate documented as of this encounter (statuses as of 07/05/2023) Resolved Problems Problem Noted Date Diagnosed Date [...] as of this encounter (statuses as of 07/05/2023) Immunizations Name Administration Dates Next Due Influenza, Whole Virus 03/20/2007,2001,05/14/2001,03/19,05/10/1998,04/21/1997,05/06/19 96,05/01/1995,04/12/1993 Pneumococcal Conjugate Vacc, 13 Valent (Prevnar) 06/16/2015 Pneumococcal Polysaccharide PPV23 (Pneumovax) 11/18/2007,04/22/2001 Season Influenza, Quad, PF, Adjuvanted, 65+ Yrs, [...] Sign Reading Time Taken Comments Blood Pressure 102/60 06/27/2023 11:00 AM EST Pulse 76 06/27/2023 11:00 AM EST Temperature 35.9 C (96.7 F) 06/27/2023 11:[address] Respiratory Rate - - Oxygen Saturation 98% 06/27/2023 11:00 AM EST Inhaled Oxygen Concentration - - Weight 85.5 kg (188 lb 6.4 oz) 06/27/2023 11:00 AM EST Height - - Body Mass Index 26.28 05/17/2023 11:33 AM EST documented in this encounter Progress Notes * Saranya Cordero MD - 06/27/2023 11:21 AM EST SUBJECTIVE: Kieran Rojas is a 83 year old male. Chief Complaint Patient presents with Hospital Follow-Up The pt stated he is here to follow up after a recent discharge from [facility] on 06/24/2023 HPI: 83 year old YOmale with PMH as listed below presents here for hospital follow up. Pt was having cough, shortness of breath, increased leg swelling, fatigue and not feeling well generally for last a week , symptoms got worse so he was taken to hospital for evaluation . [facility] . He was found to have COVID positive with pneumonia with acute on chronic heart failure with respiratory distress with hypoxia requiring BiPAP. He was then admitted and treated with BiPAP with oxygen, IV antibiotic, prednisone, nebulizer and close monitoring. Labs were overall normal except leukocytosis and Imaging chest x-ray as above. Patient also has been dealingwith sudden onset painless vision loss in both eyes and ophthalmology suspected autoimmune maybe giant cell arteritis with elevated sed rate so started on high-dose prednisone which did improve some of his vision. He was seen by Cardiology . Rest of the hospital course unremarkable . He was sent home on June 24, 2023 on tapering dose of prednisone every week and increasing water pill to 40 mgin the morning and another tablet at noon 3 days a week (was 2 days a week noon time). Since discharge feeling better . Hospital records reviewed and updated. The patient's medication list was reviewed and updated as needed. Current issues now- -BP is very low and patient has been feeling lightheaded intermittently -his son lives with him and takes care of him for the most part. -leg swelling is a lot better but still has significant Patient Active Problem List Diagnosis Code CHR ISCHEMIC HRT DIS NOS I25.9 GENERAL OSTEOARTHROSIS M15.9 Anticoagulation management encounter Z51.81, Z79.01 assisted current use of anticoagulant therapy Z79.01 SBE (subacute bacterial endocarditis) prophylaxis candidate Z29.89 S/P AORTIC VALVE REPLACEMENT-[place] Z95.2 Aortocoronary bypass status Z95.1 CORONARY ATHEROSCLER. OF [place] CORONARY VESSEL I25.10 Pernicious anemia D51.0 DYSLIPIDEMIA, GOAL LDL BELOW 70 E78.5 Type 2 diabetes mellitus with hemoglobin A1c goal of less than 7.0% (HCC) E11.9 Mitral valve stenosis I05.0 Gout M10.9 PETER inhibitor nephrotoxicity N14.19, T46.4X5A HTN, goal below 140/90 I10 Current use of insulin ([facility]) Z79.4 Paroxysmal atrial fibrillation ([facility]) I48.0 Type 2 diabetes mellitus with stage 3a chronic kidney disease, with long-term current use of insulin ([facility]) E11.22, N18.31, Z79.4 Obesity, Class I, BMI 30.0-34.9 (see actual BMI) E66.9 Primary open angle glaucoma (POAG) of both eyes H40.1130 History of basal cell carcinoma of skin Z85.828 Chronic diastolic congestive heart failure (HCC) I50.32 Central retinal vein occlusion of right eye H34.8112 Pulmonary HTN ([facility]) I27.20 Moderate mitral regurgitation I34.0 Current Outpatient Medications Medication Sig Dispense Refill NITROGLYCERIN 0.4 MG SL SUBL one tab under tongue as needed for chest pain maximum 3 dose 25 5 ONE TOUCH ULTRASOFT LANCETS MISC Check glucose [...] INJECT 84 UNITS UNDER SKIN BEFORE BED (Patient taking differently: INJECT 10 UNITS UNDER SKIN BEFORE BED) 70 mL 5 Furosemide 40 MG Oral Tablet (Lasix) TAKE ONE DAILY AND ADDITIONAL ONE 2 DAYS PER WEEK 120 Tablet 3 Insulin Syringe-Needle U-100 30G X 1/2" 1 [...] Hold Take 1 tablet Sun, Sun, Sun. metFORMIN HCl 1000 MG Oral Tablet (Glucophage) TAKE 1 TABLET BY MOUTH IN THE MORNING AND BEFORE BEDTIME 180 Tablet 1 Amoxicillin-Pot Clavulanate 875-125 MG Oral Tablet (Augmentin) 1 Tablet. diazePAM 2 MG Oral Tablet (Valium) TAKE 1 TABLET BY MOUTH TWICE A DAY FOR SPASMS Magnesium Oxide -Mg Supplement 400 (240 Mg) MG Oral Tablet (Mag-Ox) TAKE 1 TABLET BY MOUTH TWICE A DAY FOR SUPPLEMENT predniSONE 20 MG Oral Tablet (Deltasone) 3 Tablets. Spironolactone 25 MG Oral Tablet (Aldactone) 0.5 Tablets. traMADol HCl 50 MG Oral Tablet (Ultram) Take 1 Tablet by mouth every 6 hours as needed. zoster vac recomb adjuvanted (SHINGRIX) 50 MCG/0.5ML injection Inject 0.5 mL into a large muscle now and repeat dose in 60 to 180 days (Patient not taking: Reported on 05/17/2023) 1 Each 1 No current facility-administered medications for this visit. Review of patient's allergies indicates: Allergen Reactions Niaspan [Niacin Er] Flushing and Itching Past Medical History: Diagnosis Date Aortic valve stenosis Central retinal vein occlusion of right eye 10/17/2021 Coronary atherosclerosis of [place] coronary artery DM type 2, goal A1c below 7 01/29/2012 Dyslipidemia, goal LDL below 160 History of basal cell carcinoma of skin 02/28/2021 HTN, goal below 140/80 06/22/2011 Phlebitis and thrombophlebitis of other deep vessels of lower extremities Past Surgical History: Procedure Laterality Date EGD, FLEXIBLE, DIAGNOSTIC 10/14/2015 gastritis/inpt [facility] OTHER 1997 stent in heart/filter in chest PELVIS/HIP JOINT SURGERY NEC 2000 gelesly/amalia REMOVE CATARACT, INSERT LENS PROSTH bilateral REMOVE GALLBLADDER 08/16/11 Dr. Rocha REPLACEMENT AORTIC VALVE, BYPASS WITH PROSTHETIC VALVE 06/2006 [place],CABG x2 Family History Problem Relation Age of Onset Heart Disorder Mother Lung Disorder Father TB/Pneumonia No Past Hx None pt unaware of fam hx of melanoma, skin ca or other skin diseases Social History Socioeconomic History Marital status: Tobacco Use Smoking status: Former Types: Cigarettes Quit date: 06/18/1969 Years since quittin.0 Smokeless tobacco: Never Substance and Sexual Activity Alcohol use: No Drug use: No Social Determinants of Health Food Insecurity: No Food Insecurity (09/07/2022) Hunger Vital Sign Worried About Running Out of Food in the Last Year: Never true Ran Out of Food in the Last Year: Never true Family History Problem Relation Age of Onset Heart Disorder Mother Lung Disorder Father TB/Pneumonia No Past Hx None pt unaware of fam hx of melanoma, skin ca or other skin diseases REVIEW OF SYSTEMS: All 10 systems reviewed and negative except mentioned in HPI OBJECTIVE: BP 102/60 | Pulse 76 | Temp 35.9 C (96.7 F) | Wt 85.5 kg (188 lb 6.4 oz) | SpO2 98% | BMI 26.28kg/m | BSA 2.07 m PHYSICAL EXAM: General: alert, healthy, and no distress Head: Normocephalic, No masses, lesions, tenderness or abnormalities Oropharynx: no exudate, no erythema, lips, buccal mucosa, and tongue normal, and mucous membranes are moist Neck: supple, no adenopathy, no bruits, thyroid normal size, non-tender, without nodularity Heart: regular rate & rhythm, no murmur, and no gallops Lungs: chest symmetric with normal AP diameter, no chest deformities noted, no chest wall tenderness, lungs clear to auscultation Abdomen: abdomen soft, non-tender, normal bowel sounds, no masses or organomegaly, Extremities: less than 2 second capillary refill, no joint deformities, effusion, or inflammation, and 2+ edema both legs with chronic venous stasis dermatitis and dry skin/scab ASSESSMENT AND PLAN Pneumonia due to COVID-19 virus (Primary) - DISCH MED RECON CUR MED LIS Feeling much better S/P AORTIC VALVE REPLACEMENT-[place] COVID-19 virus infection - DISCH MED RECON CUR MED LIS Pulmonary HTN ([facility]) Suggest to keep Lasix 40 mg twice a day to help with swelling since he still has a significant one Type 2 diabetes mellitus with stage 3a chronic kidney disease, with long-term current use of insulin ([facility]) SBE (subacute bacterial endocarditis) prophylaxis candidate Primary open angle glaucoma of both eyes, unspecified glaucoma stage Type 2 diabetes mellitus with hemoglobin A1c goal of less than 7.0% ([facility]) Follow up with [facility]. Needs to increase long-acting insulin while on prednisone. Seeing them today Paroxysmal atrial fibrillation (HCC) HTN, goal below 140/90 Holter to seen due to low blood pressure in the setting of increasing Lasix and losing significant weight from diuresis History of basal cell carcinoma of skin GENERAL OSTEOARTHROSIS DYSLIPIDEMIA, GOAL LDL BELOW 70 Stable Continue current treatment as directed Atherosclerosis of [place] coronary artery of [place] heart without angina pectoris Moderate mitral regurgitation CHR ISCHEMIC HRT DIS NOS - DISCH MED RECON CUR MED LIS Chronic diastolic congestive heart failure (HCC) - DISCH MED RECON CUR MED LIS Obesity, Class I, BMI 30.0-34.9 (see actual BMI) Pernicious anemia Nonrheumatic mitral valve stenosis Current use of insulin ([facility]) Aortocoronary bypass status PETER inhibitor nephrotoxicity Central retinal vein occlusion with macular edema of right eye Acute on chronic diastolic CHF (congestive heart failure) ([facility]) - DISCH MED RECON CUR MED LIS Hospital discharge follow-up - DISCH MED RECON CUR MED LIS Acute on chronic diastolic (congestive) heart failure (HCC) - COMPREHENSIVE METABOLIC PANEL; Future; Expected date: 06/27/2023 - MAGNESIUM; Future; Expected date: 06/27/2023 Edema, unspecified Elevated sed rate - RHEUMATOLOGY REFERRAL OP - ERYTHROCYTE SEDIMENTATION RATE (ESR); Future; Expected date: 06/27/2023 Sudden loss of vision, bilateral - RHEUMATOLOGY REFERRAL OP - ERYTHROCYTE SEDIMENTATION RATE (ESR); Future; Expected date: 06/27/2023 HTN, goal below 140/80 Mitral stenosis Check-out note: [place] on 07/02/23 at for BP check Make cards appoint for hospital f/u Treatment and plan was discussed with patient and was given opportunity to ask questions which wereanswered appropriately. Patient verbalizing understanding. This note was prepared with the help of fluency and if there is any mis-spelled words , sentences or something which doesn't represent the content of the subject that could be technical error and please refer to the author for clarification. Saranya Cordero MD 11:21 AM 06/27/2023 documented in this encounter Nursing Notes * Master Johnson LPN - 06/27/2023 11:00 AM EST Chief Complaint Patient presents with Hospital Follow-Up The pt stated he is here to follow up after a recent discharge from [facility] on 06/24/2023 documented in this encounter Miscellaneous Notes * Addendum Note - Saranya Cordero MD - 07/05/2023 7:18 PM ESTAddended by: SARANYA CORDERO on: 07/05/2023 07:18 PM Modules accepted: Orders * Addendum Note - Saranya Crodero MD - 07/04/2023 2:59 PM ESTAddended by: SARANYA CORDERO on: 07/04/2023 02:59 PM Modules accepted: Orders documented in this encounter Plan of Treatment Upcoming Encounters Date Type Department Care Team (Late st Contact Info) Description 07/12/2023 5:30 PM EST Anticoagulation Pharmacy, [facility] [address] [facility] [place] [address] Pharmacist1, [facility] [address] [facility] [place] [address] 08/02/2023 9:30 AM EST Laboratory Lab Mobile Phlebotomy [facility] [address] [place] [address] Gm, Gml Mobile Home Draw [address] [place] [address] 08/16/2023 9:30 AM EST Laboratory Lab Mobile Phlebotomy [facility] [address] [place] [address] [facility], Gml Mobile Home Draw [address] [place] [address] 08/16/2023 10:00 AM EST Imaging [facility] [address] [facility] [address] 08/30/2023 9:30 AM EDT Laboratory Lab Mobile Phlebotomy [facility] [address] [place] [address] [facility], [facility] Mobile Home Draw [address] [place] [address] 09/03/2023 10:00 AM EDT Imaging Radiology [facility] [address] [facility] [place] [address] 09/13/2023 9:30 AM EDT Office Visit Cardiology, [facility] [address] [facility] [place] [address] Tho Park MD [address] [facility] [place] [address] 09/28/2023 9:00 AM EDT Office Visit Rheumatology [address] [place], [place] [address] Julián Barber CRNP [address] [employer] [place], [place] [address] 10/03/2023 10:40 AM EDT Office Visit General Internal Medicine [facility] [address] [facility] [place] [address] Sourav Verde MD [address] [facility] [place] [address] Scheduled Orders Name Type Priority Associated Diagnoses Orde r Schedule BNP, NT-PRO Lab Routine Chronic diastolic congestive heart failure (HCC) Expected: 07/05/2023 (Approximate), Expires: 07/04/2024 Scheduled Referrals Name Type Priority Associated Diagnoses Order Schedule RHEUMATOLOGY REFERRAL OP Referral Within 30 days (routine) Elevated sed rate Sudden loss of vision, bilateral Ordered: 06/27/2023 Health Maintenance Due Date Last Done Comments [...] 12/15/2019, Additional history exists Albumin/Creatinine Ratio 09/22/2023 04//2 023, 09/01/2021, 08/18/2020, Additional history exists CKD PHOS USE SMARTSET 29973 09/22/2023 04/0 11/2022, 09/01/2021, 08/18/2020, Additional history exists HbA1c 09/26/2023 03/27/2023, 04/0 11/2022, 03/10/2022, Additional history exists GFR 01/03/2024 07/05/2023, 06/18, 06/20/2023, Additional history exists Diabetic Eye Exam 01/17/2024 01/16/2023, , 09/04/2022, Additional history exists Depression Screening 03/27/2024 03/27/2023 CKD HGB USE SMARTSET 99919 05/17/202405/17, 05/17/2023, 03/27/2023, Additional history exists Pneumococcal Vaccine: 65+ Years Completed 06/16/2015, 11/18/2007, 04/22/2001 GARDASIL-HPV IMMUNIZATION SERIES Aged Out No longer eligible based on patient's age to complete this topic MENINGOCOCCAL (MENACTRA/MENVEO) Aged Out No longer eligible based on patient's age to complete this topic documented as of this encounter Medical Devices Not on filedocumented as of this encounter Results * (ABNORMAL) BASIC METABOLIC PANEL (07/05/2023 9:36 AM EST) BUN 61(H) 6 - 20 mg/dL 07/05/2023 1:24 PM EST [facility] [place] [facility]10 Creatinine 1.3(H) 0.6 - 1.2 mg/dL 07/05/2023 1:24 PM EST [facility] [place] [facility] Estimated Glomerular Filtration Rate 56(L) >=60 mL/min 07/05/2023 1:24 PM EST [facility] [place] [facility]10 Comment:eGFR is calculated b ased on the CKD-EPI 2020 equation Sodium 139 135 - 146 mmol/L 07/05/2023 1:24 PM EST [facility] [place] [facility]10 Potassium 4.3 3.5 - 5.1 mmol/L 07/05/2023 1:24 PM EST [facility] [place] [facility]10 Chloride 99 98 - 107 mmol/L 07/05/2023 1:24 PM EST [facility] [place] [facility]10 CO2 28 22 - 32 mmol/L 07/05/2023 1:24 PM EST [facility] [place] [facility]10 Anion Gap 12 7 - 15 mmol/L 07/05/2023 1:24 PM EST [facility] [place] 57[facility]10 Glucose 139(H) 70 - 120 mg/dL 07/05/2023 1:24 PM EST [facility] [place] [facility] Calcium 9.9 8.4 - 10.2 mg/dL 07/05/2023 1:24 PM EST [facility] [place] [facility] Blood Venous blood specimen / Unknown Venipuncture / Unknown 07/05/2023 9:36 AM EST 07/05/2023 12:50 PM EST Saranya Cordero MD LAB BLOOD ORDERABLES [facility] [place] [facility] [address] [place] [address] * (ABNORMAL) ERYTHROCYTE SEDIMENTATION RATE (ESR) (07/02/2023 11:19 AM EST) ESR 27(H) <20 mm/hour 07/02/2023 9:06 PM EST LAB[facility]ATORY [facility] Blood Venous blood specimen / Unknown Venipuncture / Unknown 07/02/2023 11:19 AM EST 07/02/2023 11:19 AM EST Saranya Cordero MD LAB BLOOD ORDERABLES Performing Organization Address City/[facility]/ZIP Co de Phone Number LAB[facility]ATORY [facility] [address] [place] [address] * MAGNESIUM (07/02/2023 11:19 AM EST) Magnesium 2.2 1.5 - 2.6 mg/dL 07/02/2023 8:01 PM EST LAB[facility]ORY [facility] Blood Venous blood specimen / Unknown Venipuncture / Unknown 07/02/2023 11:19 AM EST 07/02/2023 11:19 AM EST Saranya Cordero MD LAB BLOOD ORDERABLES [facility]ORY [facility] [address] [place] [address] * (ABNORMAL) COMPREHENSIVE METABOLIC PANEL (07/02/2023 11:19 AM EST) BUN 57(H) 6 - 20 mg/dL 07/02/2023 1:10 PM EST [facility] 57-10 Creatinine 1.2 0.6 - 1.2 mg/dL 07/02/2023 1:10 PM EST [facility] 57-10 Estimated Glomerular Filtration Rate 57(L) >=60 mL/min 07/02/2023 1:10 PM EST [facility] 57-10 Comment:eGFR is calculated b ased on the CKD-EPI 2020 equation Sodium 138 135 - 146 mmol/L 07/02/2023 1:10 PM EST [facility] 57-10 Potassium 4.7 3.5 - 5.1 mmol/L 07/02/2023 1:10 PM EST [facility] 57-10 Chloride 95(L) 98 - 107 mmol/L 07/02/2023 1:10 PM EST [facility] 57-10 CO2 27 22 - 32 mmol/L 07/02/2023 1:10 PM EST [facility] 57-10 Anion Gap 16(H) 7 - 15 mmol/L 07/02/2023 1:10 PM EST [facility] 57-10 Glucose 115 70 - 120 mg/dL 07/02/2023 1:10 PM EST [facility] 57-10 Albumin 3.5(L) 3.8 - 5.0 g/dL 07/02/2023 1:10 PM EST [facility] 57-10 AST 28 10 - 50 U/L 07/02/2023 1:10 PM EST [facility] 57-10 Alkaline Phosphatase 107 35 - 130 U/L 07/02/2023 1:10 PM EST [facility] 57-10 Bilirubin, Total 1.0 <=1.2 mg/dL 07/02/2023 1:10 PM EST [facility] 57-10 Calcium 10.4(H) 8.4 - 10.2 mg/dL 07/02/2023 1:10 PM EST [facility] [place] [facility]10 Protein 6.4 6.0 - 8.3 g/dL 07/02/2023 1:10 PM EST [facility] [place] [facility]10 ALT 39 10 - 50 U/L 07/02/2023 1:10 PM EST [facility] [place] [facility]10 Blood Venous blood specimen / Unknown Venipuncture / Unknown 07/02/2023 11:19 AM EST 07/02/2023 11:19 AM EST Saranya Cordero MD LAB BLOOD ORDERABLES [facility] [facility] [place] [address] documented in this encounter Visit Diagnoses Diagnosis Pneumonia due to COVID-19 virus- Primary S/P AORTIC VALVE REPLACEMENT-[place] Heart valve replaced by other means COVID-19 virus infection Pulmonary HTN (HCC) Other chronic pulmonary heart diseases Type 2 diabetes mellitus with stage 3a chronic kidney disease, with long-term current use of insulin (HCC) SBE (subacute bacterial endocarditis) prophylaxis candidate Other specified prophylactic or treatment measure Primary open angle glaucoma of both eyes, unspecified glaucoma stage Type 2 diabetes mellitus with hemoglobin A1c goal of less than 7.0% (HCC) Paroxysmal atrial fibrillation (HCC) Atrial fibrillation HTN, goal below 140/90 Unspecified essential hypertension History of basal cell carcinoma of skin Personal history of other malignant neoplasm of skin GENERAL OSTEOARTHROSIS Generalized osteoarthrosis, unspecified site DYSLIPIDEMIA, GOAL LDL BELOW 70 Other and unspecified hyperlipidemia Atherosclerosis of [place] coronary artery of [place] heart without angina pectoris Moderate mitral regurgitation Mitral valve disorders 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, unspecified Chronic diastolic congestive heart failure (HCC) Chronic diastolic heart failure Obesity, Class I, BMI 30.0-34.9 (see actual BMI) Obesity, unspecified Pernicious anemia Nonrheumatic mitral valve stenosis Current use of insulin (HCC) Encounter for long-term (current) use of insulin 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 Acute kidney failure with lesion of tubular necrosis Central retinal vein occlusion with macular edema of right eye Acute on chronic diastolic CHF (congestive heart failure) (HCC) Acute on chronic diastolic heart failure Hospital discharge follow-up Other follow-up examination Acute on chronic diastolic (congestive) heart failure (HCC) Edema, unspecified type Elevated sed rate Elevated sedimentation rate Sudden loss of vision, bilateral HTN, goal below 140/80 Unspecified essential hypertension Mitral valve stenosis, unspecified etiology documented in this encounter Care Teams Supervisor Chassis Assembly Relationship Specialty Start Date End Date Sourav Verde MD [address] [facility], [place] [id number] PCP - General Internal Medicine 02/28/21 documented as of this encounter
--- OUTSIDE RECORDS SUMMARY | 2023-07-08 08:15 | External Medical Summary ---
Author Name Unknown Address Unknown Organization K09:[facility] [place] [address] Laboratory Report Ordering Provider Test Date Status TRUMAN LIGHT V 06/27/2023 12:10:59 Final Therapeutic ranges for non-o perative patients:
Prophylaxsis/treatment of DVT: (Range:2.0-3.0)
Treatment of pulmonary embolism:(Range:2.0-3.0)
Prevention of systemic embolism from:
-tissue heart valves
-acute myocardial infarction
-valvular heart disease
-atrial fibrillation
(Range: 2.0-3.0)
Mechanical prosthetic valves: (Range: 2.5-3.5) Observation Date Value Abnormality Reference (Units ) Status INR in Capillary blood by Coagulation assay 06/27/2023 12:10:59 2.2 (INR) Final Performing Location [facility] [place] [address]
--- OUTSIDE RECORDS SUMMARY | 2023-07-08 08:15 | External Medical Summary | Summary of Care ---
Author Name Unknown Organization [facility] Address [address] [place] [facility] [place] [address] Phone [phone] Care Team Providers Care Lactation Coordinator Name Role Phone Sourav Verde MD Primary Care Provider + Reason for Referral * Evaluate & Treat - Unlimited Visits (Within 30 days (routine)) - Pending Review Specialty Diagnoses / Procedures Referred By Contyordy t Referred To Contact Rheumatology Diagnoses Elevated sed rate Sudden loss of vision, bilateral Saranya Cordero MD [address] [facility] [place] [address] Referral ID Status Reason Start Date Expiration Date Visits Requested Visits Authorized [id number] Pending Review Specialty Services Required 06/27/2023 999 [...] follow up after a recent discharge from [facility] on 06/24/2023 Hospital Follow-Up 06/27/2023 Encounter Details Date Type Department Care Team (Late st Contact Info) Description 06/27/2023 11:00 AM EST Office Visit General Internal Medicine [place] [facility] [address] [place] [address] Saranya Cordero MD [address] [facility] [place] [address] Pneumonia due to COVID-19 virus*; S/P AORTIC VALVE REPLACEMENT-[place]; COVID-19 virus infection; Pulmonary HTN ([facility]); Type 2 diabetes mellitus with stage 3a chronic kidney disease, with long-term current use of insulin ([facility]); SBE (subacute bacterial endocarditis) prophylaxis candidate; Primary open angle glaucoma of both eyes, unspecified glaucoma stage; Type 2 diabetes mellitus with hemoglobin A1c goal of less than 7.0% ([facility]); Paroxysmal atrial fibrillation ([facility]); HTN, goal below 140/90; History of basal cell carcinoma of skin; GENERAL OSTEOARTHROSIS; DYSLIPIDEMIA, GOAL LDL BELOW 70; Atherosclerosis of [place] coronary artery of [place] heart without angina pectoris; Moderate mitral regurgitation; CHR ISCHEMIC HRT DIS NOS; Chronic diastolic congestive heart failure ([facility]); Obesity, Class I, BMI 30.0-34.9 (see actual BMI); Pernicious anemia; Nonrheumatic mitral valve stenosis; Current use of insulin ([facility]); Aortocoronary bypass status; PETER inhibitor nephrotoxicity; Central retinal vein occlusion with macular edema of right eye; Acute on chronic diastolic CHF (congestive heart failure) ([facility]); Hospital discharge follow-up; Acute on chronic diastolic (congestive) heart failure ([facility]); Edema, unspecified type; Elevated sed rate; Sudden loss of vision, bilateral; HTN, goal below 140/80; Mitral valve stenosis, unspecified etiology Allergies Active Allergy Reactions Criticality Noted Date Comments Niacin Er Flushing,Itching 03/29/2010 documented as of this encounter (statuses as of 06/27/2023) Medications Medication Sig Dispensed Refills Start Date [...] hemoglobin A1c goal of less than 7.0% ([facility]) Use to test blood glucose twice a day E11.9 200 Strip 3 03/06/20 23 Active Insulin Aspart 100 UNIT/ML Injection Solution (NovoLOG)Indicat ions:Type 2 diabetes mellitus with hemoglobin A1c goal of less than 7.0% ([facility]) INJECT 15 UNITS SUBCUTANEOUSLY WITH BREAKFAST 15 UNITS WITH LUNCH AND 20 UNITS WITH SUPPER DAILY 40 mL 1 03/14/20 23 Active Aspirin 81 MG Oral Tablet [...] Tablet 3 10/26/19 23 024 Discontinued(Re fill) Terazosin HCl 2 [...] as of this encounter (statuses as of 06/27/2023) Active Problems Problem Noted Date Diagnosed Date [...] Taxonomy. Pernicious anemia 08/03/2008 CORONARY ATHEROSCLER. OF [place] CORONARY VESSEL 08/28/2006 S/P AORTIC VALVE REPLACEMENT-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 1 08/04/2002 Overview: ICD-10 update of inactive term Anticoagulation management encounter 12/18/2001 CHR ISCHEMIC HRT DIS NOS 01/22/2001 GENERAL OSTEOARTHROSIS 01/22/2001 SBE (subacute bacterial endocarditis) prophylaxi s candidate documented as of this encounter (statuses as of 06/27/2023) Resolved Problems Problem Noted Date Diagnosed Date [...] as of this encounter (statuses as of 06/27/2023) Immunizations Name Administration Dates Next Due Influenza, [...] follow up after a recent discharge from [facility] on 06/24/2023 HPI: 83 year old YOmale with PMH as listed below presents here for hospital follow up. Pt was having cough, shortness of breath, increased leg swelling, fatigue and not feeling well generally for last a week , symptoms got worse so he was taken to hospital for evaluation . [facility] . 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 Z95.2 Aortocoronary bypass status Z95.1 CORONARY ATHEROSCLER. OF [place] CORONARY VESSEL I25.10 Pernicious anemia D51.0 DYSLIPIDEMIA, GOAL LDL BELOW 70 E78.5 Type 2 diabetes mellitus with hemoglobin A1c goal of less than 7.0% (HCC) E11.9 Mitral valve stenosis I05.0 Gout M10.9 PETER inhibitor nephrotoxicity N14.19, T46.4X5A HTN, goal below 140/90 I10 Current use of insulin ([facility]) Z79.4 Paroxysmal atrial fibrillation ([facility]) I48.0 Type 2 diabetes mellitus with stage 3a chronic kidney disease, with long-term current use of insulin ([facility]) E11.22, N18.31, Z79.4 Obesity, Class I, BMI 30.0-34.9 (see actual BMI) E66.9 Primary open angle glaucoma (POAG) of both eyes H40.1130 History of basal cell carcinoma of skin Z85.828 Chronic diastolic congestive heart failure (HCC) I50.32 Central retinal vein occlusion of right eye H34.8112 Pulmonary HTN ([facility]) I27.20 Moderate mitral regurgitation I34.0 Current [...] of right eye 10/17/2021 Coronary atherosclerosis of [place] coronary artery DM type 2, goal A1c below 7 01/29/2012 Dyslipidemia, goal LDL below 160 History of basal cell carcinoma of skin 02/28/2021 HTN, goal below 140/80 06/22/2011 Phlebitis and thrombophlebitis of other deep vessels of lower extremities Past Surgical History: Procedure Laterality Date EGD, FLEXIBLE, DIAGNOSTIC 10/14/2015 gastritis/inpt [facility] OTHER 1997 stent in heart/filter in chest PELVIS/HIP JOINT SURGERY [facility] 2000 [facility] REMOVE CATARACT, INSERT LENS PROSTH bilateral REMOVE [...] MED RECON CUR MED LIS Pulmonary HTN (HCC) Suggest to keep Lasix 40 mg twice a day to help with swelling since he still has a significant one Type 2 diabetes mellitus with stage 3a chronic kidney disease, with long-term current use of insulin ([facility]) SBE (subacute bacterial endocarditis) prophylaxis candidate Primary open angle glaucoma of both eyes, unspecified glaucoma stage Type 2 diabetes mellitus with hemoglobin A1c goal of less than 7.0% ([facility]) Follow up with [facility]. Needs to [...] Continue current treatment as directed Atherosclerosis of [place] coronary artery of [place] heart without angina pectoris Moderate mitral regurgitation CHR ISCHEMIC HRT DIS NOS - DISCH MED RECON CUR MED LIS Chronic diastolic congestive heart failure (HCC) - DISCH MED RECON CUR MED LIS Obesity, Class I, BMI 30.0-34.9 (see actual BMI) Pernicious anemia Nonrheumatic mitral valve stenosis Current use of insulin ([facility]) Aortocoronary bypass status PETER inhibitor nephrotoxicity Central retinal vein occlusion with macular edema of right eye Acute on chronic diastolic CHF (congestive heart failure) ([facility]) - DISCH MED RECON CUR MED LIS Hospital discharge follow-up - DISCH MED RECON CUR MED LIS Acute on chronic diastolic (congestive) heart failure ([facility]) - COMPREHENSIVE METABOLIC PANEL; Future; Expected date: [...] follow up after a recent discharge from [facility] on 06/24/2023 documented in this encounter Plan of Treatment Upcoming Encounters Date Type Department Care Team (Late st Contact Info) Description 07/02/2023 9:15 AM EST Imaging Radiology [address] [address] 07/02/2023 11:30 AM EST Nurse Only Ancillary [address] [address] [place], Nurse [address] [address] 07/05/2023 9:30 AM EST Laboratory Lab Mobile Phlebotomy [facility] [address] [place] [address] [facility], [facility] Home Draw [address] [place] [address] 07/05/2023 5:30 PM EST Anticoagulation Pharmacy, [facility] [address] [place] [address] Pharmacist1, [facility] [address] [place] [address] 07/19/2023 9:30 AM EST Laboratory Lab Mobile Phlebotomy [facility] [address] [place] [address] Gm, [facility] Mobile Home Draw [address] [place] [address] 08/02/2023 9:30 AM EST Laboratory Lab Mobile Phlebotomy [facility] [address] [place] [address] Gmc, [facility] Mobile Home Draw [address] [place] [address] 08/16/2023 9:30 AM EST Laboratory Lab Mobile Phlebotomy [facility] [address] [place] [address] Gm, Gml Mobile Home Draw [address] [place] [address] 08/16/2023 10:00 AM EST Imaging Radiology [address] [facility] [place] [address] 08/30/2023 9:30 AM EDT Laboratory Lab Mobile Phlebotomy [facility] [address] [place] [address] [facility], [facility] Draw [address] [place] [address] 09/13/2023 9:30 AM EDT Office Visit Cardiology, [facility] [address] [facility] [place] [address] Tho Park MD [address] [place] [address] 09/28/2023 9:00 AM EDT Office Visit Rheumatology [place] [address] [facility] [place], [place] [address] Julián Barber CRNP [address] [place] [address] 10/03/2023 10:40 AM EDT Office Visit General Internal Medicine [facility] [place] [address] [facility] [place] [address] Sourav Verde MD [address] [facility] [place] [address] Scheduled Orders Name Type Priority Associated Diagnoses Orde r Schedule COMPREHENSIVE METABOLIC PANEL Lab Routine Acute on chronic diastolic (congestive) heart failure (HCC) Expected: 06/27/2023 (Approximate), Expires: 06/26/2024 MAGNESIUM Lab Routine Acute on chronic diastolic (congestive) heart failure (HCC) Expected: 06/27/2023 (Approximate), Expires: 06/26/2024 ERYTHROCYTE SEDIMENTATION RATE (ESR) Lab Routine Elevated sed rate Sudden loss of vision, bilateral Expected: 06/27/2023 (Approximate), Expires: 06/26/2024 Scheduled Referrals Name Type Priority Associated Diagnoses [...] 12/15/2019, Additional history exists Albumin/Creatinine Ratio 09/22/2023 0406/2 023, 09/01/2021, 08/18/2020, Additional history exists CKD PHOS USE SMARTSET 74955 09/22/2023 04/0 11/2022, 09/01/2021, 08/18/2020, Additional history exists HbA1c 09/26/2023 03/27/2023, 04/0 11/2022, 03/10/2022, Additional history exists GFR 12/19/2023 06/20/2023, 04/20, 03/27/2023, Additional history exists Diabetic Eye Exam 01/17/2024 01/16/2023, , 09/04/2022, Additional history exists Depression Screening 03/27/2024 03/27/2023 CKD HGB USE SMARTSET 81882 05/17/202405/17, 05/17/2023, 03/27/2023, Additional history exists Pneumococcal Vaccine: 65+ Years Completed 06/16/2015, 11/18/2007, 04/22/2001 GARDASIL-HPV IMMUNIZATION SERIES Aged Out No longer eligible based on patient's age to complete this topic MENINGOCOCCAL (MENACTRA/MENVEO) Aged Out No longer eligible based on patient's age to complete this topic documented as of this encounter Medical Devices Not on filedocumented as of this encounter Visit Diagnoses Diagnosis Pneumonia due [...] 70 Other and unspecified hyperlipidemia Atherosclerosis of [place] coronary artery of [place] heart without angina pectoris Moderate mitral regurgitation [...] etiology documented in this encounter Care Teams Lactation Coordinator Relationship Specialty Start Date End Date Sourav Verde MD [address] [place] [address] PCP - General Internal Medicine 02/28/21 documented as of this encounter
--- OUTSIDE RECORDS SUMMARY | 2023-07-08 08:15 | External Medical Summary ---
Author Name Unknown Address Unknown Organization K01:[facility] [place] [address] [place] [address] Laboratory Report Ordering Provider Test Date Status EVELIO DICKERMA 07/02/2023 11:19:11 Final Observation Date Value Abnormality Reference (Units ) Status Erythrocyte sedimentation rate by Photometric method 07/02/2023 11:19:11 27 Above high normal <20 (mm/hour) Final Performing Location [facility] [place] [address] [place] [address]
--- OUTSIDE RECORDS SUMMARY | 2023-07-08 08:15 | External Medical Summary | Summary of Care ---
Author Name Unknown Organization [facility] Address [address] [place] [address] Phone [phone] Care Team Providers Care Personnel Counselor Name Role Phone Sourav Verde MD Primary Care Provider + Reason for Visit * Reason Comments Dosage Adjustment Via Phone (anticoag Cl inic) Encounter Details Date Type Department Care Team (Latest Contact Info) Description 07/05/2023 5:30 PM EST Anticoagulation Pharmacy, [facility] [address] [place] [address] Pharmacist1, [facility] 200 [facility] [place] [address] S/P AORTIC VALVE REPLACEMENT-[facility]* Allergies Active [...] A1c goal of less than 7.0% ([facility]) INJECT 84 UNITS UNDER SKIN BEFORE BED 70 mL 5 05/28/2022 Active Additional Information Patient taking differently: INJECT 10 UNITS UNDER SKIN BEFORE BED, Reported on 06/27/2023 Insulin Syringe-Needle U-100 30G X 1/2" 1 ML (BD Insulin Syringe U/F) Use with insulin 4 times a day 400 Each 3 03/06/2023 Active OneTouch Ultra In Vitro Strip (Glucose Blood)Indications: Type 2 diabetes mellitus with hemoglobin A1c goal of less than 7.0% ([facility]) Use to test blood glucose twice a day E11.9 200 Strip 3 03/06/2023 Active Insulin Aspart 100 UNIT/ML Injection Solution (NovoLOG)Indicatio ns:Type 2 diabetes mellitus with hemoglobin A1c goal of less than 7.0% ([facility]) INJECT 15 UNITS SUBCUTANEOUSLY WITH BREAKFAST 15 [...] EVERY DAY 180 Tablet 1 05/14/2023 Active Metoprolol Succinate ER 100 MG Oral Tablet Extended Release 24 Hour (toPROL XL) Take 1 Tablet by mouth in the morning and 1 Tablet before bedtime. 0 Active Warfarin Sodium 4 MG Oral Tablet (Coumadin) Take 1 Tablet by mouth in the morning. Take 0.5 tablets on Sun, , Sun Hold Take 1 tablet Mon, Wed, Sat. 0 05/14/2023 Active metFORMIN HCl 1000 MG Oral Tablet (Glucophage)Indica tions:Type 2 diabetes mellitus with hemoglobin A1c goal of 7.0%-8.0% (HCC) TAKE 1 TABLET BY MOUTH IN THE MORNING AND BEFORE BEDTIME 180 Tablet 1 06/08/2023 Active Amoxicillin-Pot Clavulanate 875-125 MG Oral Tablet (Augmentin) 1 Tablet. 0 06/24/2023 Active diazePAM 2 MG Oral Tablet (Valium) TAKE 1 TABLET BY MOUTH TWICE A DAY FOR SPASMS 0 Active Magnesium Oxide -Mg Supplement 400 (240 Mg) MG Oral Tablet (Mag-Ox) TAKE 1 TABLET BY MOUTH TWICE A DAY FOR SUPPLEMENT 0 06/12/2023 Active predniSONE 20 MG Oral Tablet (Deltasone) 3 Tablets. 0 05/27/2023 Active Spironolactone 25 MG Oral Tablet (Aldactone) 0.5 Tablets. 0 05/04/2023 Active traMADol HCl 50 MG Oral Tablet (Ultram) Take 1 Tablet by mouth every 6 hours as needed. 0 Active Terazosin HCl 2 MG Oral CapsuleIndications :HTN, goal below 140/80,Mitral valve stenosis, unspecified etiology Take 1 Capsule by mouth in the morning. HOLD UNTIL DIRECTED. 0 06/27/2023 Active Furosemide 40 MG Oral Tablet (Lasix)Indications :Acute on chronic diastolic (congestive) heart failure (HCC),Edema, unspecified type Take one daily and additional one at noon daily. 0 06/27/2023 Active documented as of this encounter (statuses [...] Taxonomy. Pernicious anemia 08/03/2008 CORONARY ATHEROSCLER. OF [place] CORONARY VESSEL 08/28/2006 S/P AORTIC VALVE REPLACEMENT-[facility]. [...] as of this encounter Progress Notes * Addis Llamas Perico, [facility] - 07/05/2023 12:13 PM EST Images from the original note were not included. Patient Phone Numbers Please fax orders to [employer] Description Vitamin K 2.5mg 03/26 INR Result As of 07/05/2023 INR goal: 2.5-3.0 INR used for dosin.0 (07/05/2023) Patient Findings Negatives: Signs/symptoms of thrombosis, Signs/symptoms of bleeding, Change in health, Change in alcohol use, Change in activity, Upcoming invasive procedure, Missed doses, Extra doses, Change in medications, Change in diet/appetite, Bruising Warfarin Plan As of 07/05/2023 Full warfarin instructions: 07/05: Hold; Otherwise 2 mg every day Next INR check: 07/12/2023 Repeat PT/INR in 1 week(s) Weekly dose: linda Mancini RPh, CACP, CDE Clinical Pharmacist [facility] 07/05/2023, 12:20 PM * Paula Santizo, pluck trimmer - 07/05/2023 10:58 AM EST [facility] nurse Jessica calling in today's INR 4.0. Paula Santizo MA Catalogue And Special Products Manager [facility] (formerly [facility]pharm[facility]) * Paula Santizo pluck trimmer - 07/05/2023 10:34 AM EST Please fax orders to [facility] , I faxed the order today so the nurse can get the INR today. Paula Santizo MA Catalogue And Special Products Manager [facility] (formerly [facility]) documented in this encounter Plan of Treatment Upcoming Encounters Date Type Department Care Team (Late st Contact Info) Description 07/12/2023 5:30 PM EST Anticoagulation Pharmacy, [facility] [place] 200 [facility] [place] [address] Pharmacist1, [facility] [address] [place] [address] 08/02/2023 9:30 AM EST Laboratory Lab Mobile Phlebotomy [facility] [address] [place] [address] [facility], [facility] Mobile Home Draw [address] [place] [address] 08/16/2023 9:30 AM EST Laboratory Lab Mobile Phlebotomy [facility] [address] [place] [address] [facility], [facility] Mobile Home Draw [address] [place] [address] 08/16/2023 10:00 AM EST Imaging Radiology [facility] [address] [place] [address] 08/30/2023 9:30 AM EDT Laboratory Lab Mobile Phlebotomy [facility] [address] [place] [address] [facility] Mobile Home Draw [address] [place] [address] 09/03/2023 10:00 AM EDT Imaging Radiology [address] [place] [address] 09/13/2023 9:30 AM EDT Office Visit Cardiology, [facility] [address] [place] [address] Tho Park MD [address] [place] [address] 09/28/2023 9:00 AM EDT Office Visit Rheumatology [place] [id number] [facility] [place], [place] [address] Julián Barber CRNP [facility] [place], [place] [address] 10/03/2023 10:40 AM EDT Office Visit General Internal Medicine [facility] 200 [facility] [place], [place] [address] Sourav Verde MD 200 [facility] [place], [place] [address] Health Maintenance Due Date Last Done Comments [...] Additional history exists CKD PHOS USE SMARTSET 75756 09/22/2023 04/0 11/2022, 09/01/2021, 08/18/2020, Additional history exists HbA1c 09/26/2023 03/27/2023, 04/0 11/2022, 03/10/2022, Additional history exists GFR 12/31/2023 07/02/2023, 01/0 08/2023, 05/17/2023, Additional history exists Diabetic Eye Exam 01/17/2024 01/16/2023, , 09/04/2022, Additional history exists Depression Screening 03/27/2024 03/27/2023 CKD HGB USE SMARTSET 67447 05/17/202405/17, 05/17/2023, 03/27/2023, Additional history exists Pneumococcal [...] Procedure Name Priority Date/Time Associated Diagnosis Comments OUTSIDE LAB-PT/INR Routine 07/05/2023 documented in this encounter Results * OUTSIDE LAB-PT/INR (07/05/2023) INR-OUTSIDE LAB 4.0 History Per Patient LABORATORY documented in this encounter Visit Diagnoses Diagnosis S/P AORTIC VALVE REPLACEMENT-[facility] [facility]- Primary Heart valve replaced by other means documented in this encounter Care Teams Personnel Counselor Relationship Specialty Start Date End Date Sourav Verde MD 200 [facility] [place] [address] PCP - General Internal Medicine 02/28/21 documented as of this encounter
--- OUTSIDE RECORDS SUMMARY | 2023-07-08 08:15 | External Medical Summary | Summary of Care ---
Author Name Unknown Organization [facility] Address [address] [place] [address] Phone [phone] Care Team Providers Care Librarian Special Collections Name Role Phone Sourav Verde MD Primary Care Provider + Reason for Visit * Reason Onset Date Comments Test Results 07/04/2023 Encounter Details Date Type Department Care Team (Late st Contact Info) Description 07/04/2023 Telephone General Internal Medicine [facility] 200 [place] [address] Sourav Verde MD 200 [place] [address] Test Results Allergies Active Allergy Reactions Criticality Noted Date Comments Niacin Er Flushing,Itching 03/29/2010 documented as of this encounter (statuses as of 07/04/2023) Medications Medication Sig Dispensed Refills Start Date [...] hemoglobin A1c goal of less than 7.0% ([facility]) INJECT 84 UNITS UNDER SKIN [...] hemoglobin A1c goal of less than 7.0% ([facility]) Use to test blood glucose twice a day E11.9 200 Strip 3 03/06/2023 Active Insulin Aspart 100 UNIT/ML Injection Solution (NovoLOG)Indicatio ns:Type 2 diabetes mellitus with hemoglobin A1c goal of less than 7.0% ([facility]) INJECT 15 UNITS SUBCUTANEOUSLY WITH [...] as of this encounter (statuses as of 07/04/2023) Active Problems Problem Noted Date Diagnosed Date [...] Taxonomy. Pernicious anemia 08/03/2008 CORONARY ATHEROSCLER. OF [place] CORONARY VESSEL 08/28/2006 S/P AORTIC VALVE REPLACEMENT-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 Informed Zack of the message below and voiced understanding. He stated His Dad's breathing and swelling are improving and the pt only had one episode of hypoglycemia this morning where his BG dropped to 75. He stated they were able to stabilize it quickly without issue. He was advised if they continue to be low they can decrease levamir to 80 units as directed. * Telephone Encounter - Saranya Cordero MD - 07/04/2023 3:45 PM EST Noted if swelling is better and breathing better than when I saw him would continue same regimen If sugar been low suggest to decrease levamir to 80 units before bedtime * Telephone Encounter - Gregorio Park CMA - 07/04/2023 3:14 PM EST Patient aware and verbalized understanding, patient states he is having some SOB and wheezing, still has swelling in his lower extremities. States he is light headed but said his blood sugar was on the low end and is slowly coming up * Telephone Encounter - Gregorio Park CMA - 07/04/2023 3:12 PM EST ----- Message from Saranya Cordero MD sent at 07/04/2023 2:58 PM EST ----- Sed rate which is inflammation rate is slightly up. 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 Check house the leg swelling now and breathing? Any lightheadedness? Repeat BMP in 2 weeks to make sure documented in this encounter Plan of Treatment Upcoming Encounters Date Type Department Care Team (Late st Contact Info) Description 07/05/2023 9:30 AM EST Laboratory Lab Mobile Phlebotomy [facility] [address] [place] [address] [facility], [facility] Mobile Home Draw [address] [place] [address] 07/05/2023 5:30 PM EST Anticoagulation Pharmacy, [facility] 200 [place] [address] Pharmacist1, [facility] 200 [place] [address] 07/19/2023 9:30 AM EST Laboratory Lab Mobile Phlebotomy [facility] [address] [place] [address] [facility], [facility] Mobile Home Draw [address] [place] [address] 08/02/2023 9:30 AM EST Laboratory Lab Mobile Phlebotomy [facility] [address] [place] [address] [facility], [facility] Mobile Home Draw [address] [place] [address] 08/16/2023 9:30 AM EST Laboratory Lab Mobile Phlebotomy [facility] [address] [place] [address] [facility], [facility] Mobile Home Draw [address] [place] [address] 08/16/2023 10:00 AM EST Imaging Radiology [address] [place] [address] 08/30/2023 9:30 AM EDT Laboratory Lab Mobile Phlebotomy [facility] [address] [place] [address] [facility], [facility] Mobile Home Draw [address] [place] [address] 09/03/2023 10:00 AM EDT Imaging Radiology [facility] 132 [place] [address] 09/13/2023 9:30 AM EDT Office Visit Cardiology, [facility] [address] [place] [address] Tho Park MD [address] [place] [address] 09/28/2023 9:00 AM EDT Office Visit Rheumatology [facility] [address] [place] [address] Julián Barber CRNP [facility] [place] [address] 10/03/2023 10:40 AM EDT Office Visit General Internal Medicine [facility] 200 [facility] [place] [address] Sourav Verde MD 200 [facility] [place] [address] Health Maintenance Due Date Last Done Comments [...] Additional history exists CKD PHOS USE SMARTSET 09383 09/22/2023 04/0 11/2022, 09/01/2021, 08/18/2020, Additional history exists HbA1c 09/26/2023 03/27/2023, 04/0 11/2022, 03/10/2022, Additional history exists GFR 12/31/2023 07/02/2023, 01/0 08/2023, 05/17/2023, Additional history exists Diabetic Eye Exam 01/17/2024 01/16/2023, , 09/04/2022, Additional history exists Depression Screening 03/27/2024 03/27/2023 CKD HGB USE SMARTSET 30983 05/17/202405/17, 05/17/2023, 03/27/2023, Additional history exists Pneumococcal Vaccine: 65+ Years Completed 06/16/2015, 11/18/2007, 04/22/2001 GARDASIL-HPV IMMUNIZATION SERIES Aged Out No longer eligible based on patient's age to complete this topic MENINGOCOCCAL (MENACTRA/MENVEO) Aged Out No longer eligible based on patient's age to complete this topic documented as of this encounter Medical Devices Not on filedocumented as of this encounter Care Teams Librarian Special Collections Relationship Specialty Start Date End Date Sourav Verde MD 200 [facility] [place] [address] PCP - General Internal Medicine 02/28/21 documented as of this encounter
--- OUTSIDE RECORDS SUMMARY | 2023-07-08 08:15 | External Medical Summary | Summary of Care ---
Author Name Unknown Organization [facility] Address [address] [place] [address] Phone [phone] Care Team Providers Care Icing Mixer Name Role Phone Sourav Verde MD Primary Care Provider + Reason for Visit * Reason Comments Hospital Follow-Up Encounter Details Date Type Department Care Team (Latest Contact Info) Description 06/22/2023 5:50 PM EST Anticoagulation Pharmacy, [facility] 200 [place] [address] Pharmacist1, [facility] 200 [facility] [place] [address] S/P AORTIC VALVE REPLACEMENT-[facility]* Allergies Active Allergy Reactions Criticality Noted Date Comments Niacin Er Flushing,Itching 03/29/2010 documented as of this encounter (statuses as of 06/22/2023) Medications Medication Sig Dispensed Refills Start Date [...] as of this encounter (statuses as of 06/22/2023) Active Problems Problem Noted Date Diagnosed Date [...] Taxonomy. Pernicious anemia 08/03/2008 CORONARY ATHEROSCLER. OF [place] CORONARY VESSEL 08/28/2006 S/P AORTIC VALVE REPLACEMENT-[facility] 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 1 08/04/2002 Overview: ICD-10 update of inactive term Anticoagulation management encounter 12/18/2001 CHR ISCHEMIC HRT DIS NOS 01/22/2001 GENERAL OSTEOARTHROSIS 01/22/2001 SBE (subacute bacterial endocarditis) prophylaxi s candidate documented as of this encounter (statuses as of 06/22/2023) Resolved Problems Problem Noted Date Diagnosed Date [...] as of this encounter (statuses as of 06/22/2023) Immunizations Name Administration Dates Next Due Influenza, [...] Progress Notes * Perico Wright RPh - 06/22/2023 12:08 PM EST Patient Phone Numbers Patient still admitted to [facility] on multiple antibiotics. Will check for discharge 06/25. Perico Mancini RPh, CACP, CDE Clinical Pharmacist [facility] 06/22/2023, 12:08 PM documented in this encounter Plan of Treatment Upcoming Encounters Date Type Department Care Team (Late st Contact Info) Description 06/25/2023 5:50 PM EST Anticoagulation Pharmacy, [facility] [address] [place] [address] Pharmacist1, [facility] 200 [facility] [place] [address] 06/27/2023 11:00 AM EST Office Visit General Internal Medicine [facility] [address] [facility] [place] [address] Saranya Cordero MD [address] [facility] [place] [address] 07/02/2023 9:15 AM EST Imaging Radiology [facility] [address] [place] [address] 07/05/2023 9:30 AM EST Laboratory Lab Mobile Phlebotomy [facility] [place] [address] [place] [address] [facility], [facility] Mobile Home Draw [address] [place] [address] 07/19/2023 9:30 AM EST Laboratory Lab Mobile Phlebotomy [facility] [place] [place] [address] [place] [address] [facility], [facility] Mobile Home Draw [address] [place] [address] 08/02/2023 9:30 AM EST Laboratory Lab Mobile Phlebotomy [facility] [place] [place] [address] [place] [address] [facility], [facility] Mobile Home Draw [address] [place] [address] 08/16/2023 9:30 AM EST Laboratory Lab Mobile Phlebotomy [facility] [place] [address] [place] [address] [facility], [facility] Mobile Home Draw [address] [place] [address] 08/16/2023 10:00 AM EST Imaging Radiology [address], [place] [address] [place] [address] 08/30/2023 9:30 AM EDT Laboratory Lab Mobile Phlebotomy [facility] [place] [place] [address] [place] [address] [facility], [facility] Mobile Home Draw [address] [place] [address] 10/03/2023 10:40 AM EDT Office Visit General Internal Medicine [facility] 200 [place] [address] Sourav Verde MD [address] [place] [address] Health Maintenance Due Date Last Done Comments [...] 11/01/2020, 12/15/2019, Additional history exists Albumin/Creatinine Ratio 09/22/20232 023, 09/01/2021, 08/18/2020, Additional history exists CKD PHOS USE SMARTSET 86752 09/22/2023 04/0 11/2022, 09/01/2021, 08/18/2020, Additional history exists HbA1c 09/26/2023 03/27/2023, 04/0 11/2022, 03/10/2022, Additional history exists GFR 12/19/2023 06/20/2023, 04/20, 03/27/2023, Additional history exists Diabetic Eye Exam 01/17/2024 01/16/2023, , 09/04/2022, Additional history exists Depression Screening 03/27/2024 03/27/2023 CKD HGB USE SMARTSET 95141 05/17/202405/17, 05/17/2023, 03/27/2023, Additional history exists Pneumococcal [...] means documented in this encounter Care Teams Icing Mixer Relationship Specialty Start Date End Date Sourav Verde MD [address] [place] [address] PCP - General Internal Medicine 02/28/21 documented as of this encounter
--- OUTSIDE RECORDS SUMMARY | 2023-07-08 08:15 | External Medical Summary | Summary of Care ---
Author Name Unknown Organization [facility] Address [address] [place] [address] Phone [phone] Care Team Providers Care Cork Pressing Machine Operator Name Role Phone Sourav Verde MD Primary Care Provider + Reason for Visit * Reason Comments Dosage Adjustment Via Phone (anticoag Cl inic) Encounter Details Date Type Department Care Team (Latest Contact Info) Description 07/05/2023 5:30 PM EST Anticoagulation Pharmacy, [facility] [address] [place] [address] Pharmacist1, [facility] 200 [facility] [place] [place] [address] S/P AORTIC VALVE REPLACEMENT-[place]* Allergies Active [...] than 7.0% (FORMER[facility]) INJECT 84 UNITS UNDER SKIN BEFORE [...] than 7.0% ([facility]ER[facility]) Use to test blood glucose twice a day E11.9 200 Strip 3 03/06/2023 Active Insulin Aspart 100 UNIT/ML Injection Solution (NovoLOG)Indicatio ns:Type 2 diabetes mellitus with hemoglobin A1c goal of less than 7.0% ([facility]) INJECT 15 UNITS SUBCUTANEOUSLY WITH BREAKFAST [...] Taxonomy. Pernicious anemia 08/03/2008 CORONARY ATHEROSCLER. OF [place] CORONARY VESSEL 08/28/2006 S/P AORTIC VALVE REPLACEMENT-[facility] 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 residential current use of anticoagulant therapy 1 08/04/2002 [...] encounter Progress Notes * Addis Llamas Perico, [facility] - 07/05/2023 12:13 PM EST Images from the original note were not included. Patient Phone Numbers Please fax orders to [email or web address] Description Vitamin K 2.5mg 03/26 INR Result [...] Clinic 07/05/2023, 12:20 PM * Paula Santizo, boat joiner - 07/05/2023 10:58 AM EST [facility] nurse Jessica calling in today's INR 4.0. Paula Santizo MA [facility] (formerly Telepharm[facility]) * Paula Santizo boat joiner - 07/05/2023 10:34 AM EST Please fax orders to [email or web address] [facility] , I faxed the order today so the nurse can get the INR today. Paula Santizo MA [facility] (formerly Telepharmacy) documented in this encounter Plan of Treatment Upcoming Encounters Date Type Department Care Team (Late st Contact Info) Description 07/12/2023 5:30 PM EST Anticoagulation Pharmacy, [facility] [address] [facility] [place] [address] Pharmacist1, [facility] [address] [place] [address] 08/02/2023 9:30 AM EST Laboratory Lab Mobile Phlebot[facility] [address] [place] [address] [facility], [facility] [address] [place] [address] 08/16/2023 9:30 AM EST Laboratory Lab Mobile [facility] [address] [place] [address] [facility], [facility] [address] [place] [address] 08/16/2023 10:00 AM EST Imaging Radiology [facility] 1st [facility] [address] [place] [address] 08/30/2023 9:30 AM EDT Laboratory Lab Mobile Phlebotomy [facility] [address] [place] [address] [facility] Mobile Home Draw [address] [place] [address] 09/03/2023 10:00 AM EDT Imaging Radiology [address] [place] [address] 09/13/2023 9:30 AM EDT Office Visit Cardiology, [facility] [address] [place] [address] Tho Park MD [address] [place] [address] 09/28/2023 9:00 AM EDT Office Visit Rheumatology [place] [address] [facility] [place], [place] [address] Julián Barber CRNP [facility] [place], [place] [address] 10/03/2023 10:40 AM EDT Office Visit General Internal Medicine [facility] [address] [facility] [place], [place] [address] Sourav Verde MD [address] [facility] [place], [place] [address] Health Maintenance Due Date Last Done Comments [...] Additional history exists CKD PHOS USE SMARTSET 87064 09/22/2023 04/0 11/2022, 09/01/2021, 08/18/2020, Additional history exists HbA1c 09/26/2023 03/27/2023, 04/0 11/2022, 03/10/2022, Additional history exists GFR 12/31/2023 07/02/2023, 01/0 08/2023, 05/17/2023, Additional history exists Diabetic Eye Exam 01/17/2024 01/16/2023, , 09/04/2022, Additional history exists Depression Screening 03/27/2024 03/27/2023 CKD HGB USE SMARTSET 80633 05/17/202405/17, 05/17/2023, 03/27/2023, Additional history exists Pneumococcal [...] means documented in this encounter Care Teams Cork Pressing Machine Operator Relationship Specialty Start Date End Date Sourav Verde MD [address] [facility] [place] [address] PCP - General Internal Medicine 02/28/21 documented as of this encounter
--- OUTSIDE RECORDS SUMMARY | 2023-07-08 08:15 | External Medical Summary ---
Author Name Unknown Address Unknown Organization [id number]:[facility] - [address] [place] [address] Laboratory Report Ordering Provider Test Date Status LEVAR DICK 07/05/2023 09:36:00 Final Exclude Heart Failure: <300 pg/mL
Diagnose Heart Failure:
Age <50 yr: >450 pg/mL
50-75 yr: >900 pg/mL
>75 yr: >1800 pg/mL
GFR is 30-59 mL/min: >1200 pg/mL or Age- adjusted values
GFR <30 mL/min: do not use, not reliable

Prognostic threshold: 1000 pg/mL Observation Date Value Abnormality Reference (Units ) Status BNP, Pro-hormone 07/05/2023 09:36:00 5359 Above high no rmal <300 (pg/mL) Final Performing Location [facility] - [facility] [address] [place] [address]
--- OUTSIDE RECORDS SUMMARY | 2023-07-08 08:15 | External Medical Summary | Summary of Care ---
Author Name Unknown Organization [facility] Address [address] [facility] [address] Phone [phone] Care Team Providers Care User Interface Designer Name Role Phone Sourav Verde MD Primary Care Provider + Reason for Visit * Reason Comments Outpatient Testing Encounter Details Date Type Department Care Team (Late st Contact Info) Description 07/02/2023 11:50 AM EST Laboratory Laboratory, [facility] [address] [facility] [place] [address] [facility] [address] [place] [address] Acute on chronic diastolic (congestive) heart failure (HCC); Elevated sed rate; Sudden loss of vision, bilateral Allergies Active Allergy Reactions Criticality Noted Date Comments Niacin Er Flushing,Itching 03/29/2010 documented as of this encounter (statuses as of 07/02/2023) Medications Medication Sig Dispensed Refills Start Date [...] A1c goal of less than 7.0% ([facility]) Use to test blood glucose twice a day E11.9 200 Strip 3 03/06/2023 Active Insulin Aspart 100 UNIT/ML Injection Solution (NovoLOG)Indicatio ns:Type 2 diabetes mellitus with hemoglobin A1c goal of less than 7.0% ([facility]) INJECT 15 UNITS SUBCUTANEOUSLY WITH [...] as of this encounter (statuses as of 07/02/2023) Active Problems Problem Noted Date Diagnosed Date Acute on chronic diastolic (congestive) heart fa ilure 06/27/2023 Moderate mitral regurgitation 05/17/2023 Pulmonary HTN 03/27/2023 Central retinal vein occlusion of right eye 05/07/2021 Chronic diastolic congestive heart failure 09/01 Obesity, [...] Taxonomy. Pernicious anemia 08/03/2008 CORONARY ATHEROSCLER. OF [place] CORONARY VESSEL 08/28/2006 S/P AORTIC VALVE REPLACEMENT-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 long-term current use of anticoagulant therapy 1 08/04/2002 Overview: ICD-10 update of inactive term Anticoagulation management encounter 12/18/2001 CHR ISCHEMIC HRT DIS NOS 01/22/2001 GENERAL OSTEOARTHROSIS 01/22/2001 SBE (subacute bacterial endocarditis) prophylaxi s candidate documented as of this encounter (statuses as of 07/02/2023) Resolved Problems Problem Noted Date Diagnosed Date [...] as of this encounter (statuses as of 07/02/2023) Immunizations Name Administration Dates Next Due Influenza, [...] 9:30 AM EST Laboratory Lab [facility] [address] [place] [address] [facility] Mobile Home Draw [address] [place] [address] 07/05/2023 5:30 PM EST Anticoagulation Pharmacy, [facility] 200 [facility] [place] [address] Pharmacist1, [facility] 200 [facility] [place] [address] 07/19/2023 9:30 AM EST Laboratory Lab [facility] [address] [place] [address] [facility], [facility] Mobile Home Draw [address] [place] [address] 08/02/2023 9:30 AM EST Laboratory Lab [facility] [address] [place] [address] [facility], [facility] Mobile Home Draw [address] [place] [address] 08/16/2023 9:30 AM EST Laboratory Lab [facility] [address] [place] [address] [facility], [facility] Home Draw [address] [place] [address] 08/16/2023 10:00 AM EST Imaging Radiology [address] [place] [address] 08/30/2023 9:30 AM EDT Laboratory Lab [facility] [address] [place] [address] [facility], [facility] Mobile Home Draw [address] [place] [address] 09/03/2023 10:00 AM EDT Imaging Rad[facility] 132 [place] [address] 09/13/2023 9:30 AM EDT Office Visit Cardiology, [facility] [address] [place] [address] Tho Park MD 132 [place] [address] 09/28/2023 9:00 AM EDT Office Visit Rheumatology [facility] [address] [facility] [place] [address] Julián Barber CRNP [facility] [place] [address] 10/03/2023 10:40 AM EDT Office Visit General Internal Medicine [facility] [address] [place] [address] Sourav Verde MD 200 [facility] [place] [address] Pending Results Name Type Priority Associated Diagnoses Date /Time COMPREHENSIVE METABOLIC PANEL Lab Routine Acute on chronic diastolic (congestive) heart failure (HCC) 07/02/2023 11:19 AM EST MAGNESIUM Lab Routine Acute on chronic diastolic (congestive) heart failure (HCC) 07/02/2023 11:19 AM EST ERYTHROCYTE SEDIMENTATION RATE (ESR) Lab Routine Elevated sed rate Sudden loss of vision, bilateral 07/02/2023 11:19 AM EST Health Maintenance Due Date Last [...] Additional history exists CKD PHOS USE SMARTSET 53059 09/22/2023 04/0 11/2022, 09/01/2021, 08/18/2020, Additional history exists HbA1c 09/26/2023 03/27/2023, 04/0 11/2022, 03/10/2022, Additional history exists GFR 12/19/2023 06/20/2023, 04/20, 03/27/2023, Additional history exists Diabetic Eye Exam 01/17/2024 01/16/2023, , 09/04/2022, Additional history exists Depression Screening 03/27/2024 03/27/2023 CKD HGB USE SMARTSET 13984 05/17/202405/17, 05/17/2023, 03/27/2023, Additional history exists Pneumococcal Vaccine: 65+ Years Completed 06/16/2015, 11/18/2007, 04/22/2001 GARDASIL-HPV IMMUNIZATION SERIES Aged Out No longer eligible based on patient's age to complete this topic MENINGOCOCCAL (MENACTRA/MENVEO) Aged Out No longer eligible based on patient's age to complete this topic documented as of this encounter Medical Devices Not on filedocumented as of this encounter Visit Diagnoses Diagnosis Acute on chronic diastolic (congestive) heart failure (HCC) Elevated sed rate Elevated sedimentation rate Sudden loss of vision, bilateral documented in this encounter Care Teams User Interface Designer Relationship Specialty Start Date End Date Sourav Verde MD 200 [facility] [place] [place] [address] PCP - General Internal Medicine 02/28/21 documented as of this encounter
--- OUTSIDE RECORDS SUMMARY | 2023-07-08 08:15 | External Medical Summary ---
Author Name Unknown Address Unknown Organization K0G:[facility] [address] - [address] [place] [address] Laboratory Report Ordering Provider Test Date Status LEVAR DICK 07/02/2023 11:19:11 Final Observation Date Value Abnormality Reference (Units ) Status BUN 07/02/2023 11:19:11 57 Above high normal 6-20 (mg/dL) Final Creatinine 07/02/2023 11:19:11 1.2 0.6-1.2 (mg/dL) Final Glomerular filtration rate/1.73 sq M.predicted [Volume Rate/Area] in Serum, Plasma or Blood by Creatinine-based formula (CKD-EPI) 07/02/2023 11:19:11 57 Below low normal >=60 (mL/min) Final eGFR is calculated based on the CKD-EPI 2020 equation SODIUM 07/02/2023 11:19:11 138 135-146 (m mol/L) Final Potassium 07/02/2023 11:19:11 4.7 3.5-5.1 (m mol/L) Final Cl 07/02/2023 11:19:11 95 Below low normal 98- 107 (mmol/L) Final CO2 07/02/2023 11:19:11 27 22-32 (mmo l/L) Final Anion gap 07/02/2023 11:19:11 16 Above high normal 7- 15 (mmol/L) Final Glucose 07/02/2023 11:19:11 115 70-120 (mg /dL) Final Albumin 07/02/2023 11:19:11 3.5 Below low normal 3.8 -5.0 (g/dL) Final AST (Aspartate aminotransferase) 07/02/2023 11:19:11 28 10-50 (U/L) Fin al Alk Phos 07/02/2023 11:19:11 107 35-130 (U/ L) Final Bilirubin, Total 07/02/2023 11:19:11 1.0 <=1 .2 (mg/dL) Final Calcium 07/02/2023 11:19:11 10.4 Above high normal 8. 4-10.2 (mg/dL) Final Protein 07/02/2023 11:19:11 6.4 6.0-8.3 (g /dL) Final ALT (Alanine aminotransferase) 07/02/2023 11:19:11 39 10-50 (U/L) Benji fontenot Performing Location [facility] [place] [address] - [address] [facility] [address]
--- OUTSIDE RECORDS SUMMARY | 2023-07-08 08:15 | External Medical Summary | Summary of Care ---
Author Name Unknown Organization [facility] Address [address] [facility] [place] [address] Phone [phone] Care Team Providers Care Credit Control Officer Name Role Phone Sourav Verde MD Primary Care Provider + Reason for Referral * Evaluate & Treat - Unlimited Visits (Within 30 days (routine)) - Pending Review Specialty Diagnoses / Procedures Referred By Contyordy t Referred To Contact Rheumatology Diagnoses Elevated sed rate Sudden loss of vision, bilateral Saranya Cordero MD 200 [facility] [place] [address] Referral ID Status Reason Start Date Expiration Date Visits Requested Visits Authorized [id number] Pending Review Specialty Services Required 06/27/2023 999 [...] follow up after a recent discharge from [facility] on 06/24/2023 Hospital Follow-Up 06/27/2023 Encounter Details Date Type Department Care Team (Late st Contact Info) Description 06/27/2023 11:00 AM EST Office Visit General Internal Medicine [facility] [address] [place] [address] Saranya Cordero MD 200 [facility] [place] [address] Pneumonia due to COVID-19 virus*; S/P AORTIC VALVE REPLACEMENT-[place]; COVID-19 virus infection; Pulmonary HTN ([facility]); Type 2 diabetes mellitus with stage 3a chronic kidney disease, with long-term current use of insulin ([facility]); SBE (subacute bacterial endocarditis) prophylaxis candidate; Primary open angle glaucoma of both eyes, unspecified glaucoma stage; Type 2 diabetes mellitus with hemoglobin A1c goal of less than 7.0% ([facility]); Paroxysmal atrial fibrillation ([facility]); HTN, goal below 140/90; History of basal cell carcinoma of skin; GENERAL OSTEOARTHROSIS; DYSLIPIDEMIA, GOAL LDL BELOW 70; Atherosclerosis of [place] coronary artery of [place] heart without angina pectoris; Moderate mitral regurgitation; CHR ISCHEMIC HRT DIS NOS; Chronic diastolic congestive heart failure ([facility]); Obesity, Class I, BMI 30.0-34.9 (see actual BMI); Pernicious anemia; Nonrheumatic mitral valve stenosis; Current use of insulin ([facility]); Aortocoronary bypass status; PETER inhibitor nephrotoxicity; Central retinal vein occlusion with macular edema of right eye; Acute on chronic diastolic CHF (congestive heart failure) ([facility]); Hospital discharge follow-up; Acute on chronic diastolic (congestive) heart failure ([facility]); Edema, unspecified type; Elevated sed rate; Sudden [...] Taxonomy. Pernicious anemia 08/03/2008 CORONARY ATHEROSCLER. OF [place] CORONARY VESSEL 08/28/2006 S/P AORTIC VALVE REPLACEMENT-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 Pt was having cough, shortness of breath, increased leg swelling, fatigue and not feeling well generally for last a week , symptoms got worse so he was taken to hospital for evaluation . [facility] He was [...] Aortocoronary bypass status Z95.1 CORONARY ATHEROSCLER. OF [place] CORONARY VESSEL I25.10 Pernicious anemia D51.0 DYSLIPIDEMIA, GOAL LDL BELOW 70 E78.5 Type 2 diabetes mellitus with hemoglobin A1c goal of less than 7.0% ([facility]) E11.9 Mitral valve stenosis I05.0 Gout M10.9 PETER inhibitor nephrotoxicity N14.19, T46.4X5A HTN, goal below 140/90 I10 Current use of insulin ([facility]) Z79.4 Paroxysmal atrial fibrillation ([facility]) I48.0 Type 2 diabetes mellitus with stage 3a chronic kidney disease, with long-term current use of insulin ([facility]) E11.22, N18.31, Z79.4 Obesity, Class I, BMI 30.0-34.9 (see actual BMI) E66.9 Primary open angle glaucoma (POAG) of both eyes H40.1130 History of basal cell carcinoma of skin Z85.828 Chronic diastolic congestive heart failure (HCC) I50.32 Central retinal vein occlusion of right eye H34.8112 Pulmonary HTN ([facility]) I27.20 Moderate mitral regurgitation I34.0 Current Outpatient [...] eye 10/17/2021 Coronary atherosclerosis of [place] coronary artery DM type 2, goal A1c below 7 01/29/2012 Dyslipidemia, goal LDL below 160 History of basal cell carcinoma of skin 02/28/2021 HTN, goal below 140/80 06/22/2011 Phlebitis and thrombophlebitis of other deep vessels of lower extremities Past Surgical History: Procedure Laterality Date EGD, FLEXIBLE, DIAGNOSTIC 10/14/2015 gastritis/inpt [facility] OTHER 1997 stent in heart/filter in chest PELVIS/HIP JOINT SURGERY NEC 2000 [facility] REMOVE CATARACT, INSERT LENS PROSTH bilateral REMOVE [...] MED RECON CUR MED LIS Pulmonary HTN ([facility]) Suggest to keep Lasix 40 mg twice a day to help with swelling since he still has a significant one Type 2 diabetes mellitus with stage 3a chronic kidney disease, with long-term current use of insulin ([facility]) SBE (subacute bacterial endocarditis) prophylaxis candidate Primary open angle glaucoma of both eyes, unspecified glaucoma stage Type 2 diabetes mellitus with hemoglobin A1c goal of less than 7.0% ([facility]) Follow up with [facility]. Needs to increase [...] treatment as directed Atherosclerosis of [place] coronary artery of [place] heart without angina pectoris Moderate mitral regurgitation CHR ISCHEMIC HRT DIS NOS - DISCH MED RECON CUR MED LIS Chronic diastolic congestive heart failure (HCC) - DISCH MED RECON CUR MED LIS Obesity, Class I, BMI 30.0-34.9 (see actual BMI) Pernicious anemia Nonrheumatic mitral valve stenosis Current use of insulin ([facility]) Aortocoronary bypass status PETER inhibitor nephrotoxicity Central retinal vein occlusion with macular edema of right eye Acute on chronic diastolic CHF (congestive heart failure) (HCC) - DISCH MED RECON CUR MED [...] follow up after a recent discharge from [facility] on 06/24/2023 documented in this encounter Miscellaneous Notes * Addendum Note - Saranya Cordero MD - 07/04/2023 2:59 PM ESTAddended by: ASRANYA CORDERO on: 07/04/2023 02:59 PM Modules accepted: Orders documented in this encounter Plan of Treatment Upcoming Encounters Date Type Department Care Team (Late st Contact Info) Description 07/05/2023 9:30 AM EST Laboratory Lab Mobile Phlebotomy [facility] [address] [place] [address] [facility] Mobile Home Draw [address], [place] [id number] 07/05/2023 5:30 PM EST Anticoagulation Pharmacy, [facility] 200 [facility] [place] [address] Pharmacist1, [facility] 200 [facility] [place] [address] 07/19/2023 9:30 AM EST Laboratory Lab Mobile Phlebotomy [facility] [address] [place] [address] Gm, Gml Mobile Home Draw [address] [place] [address] 08/02/2023 9:30 AM EST Laboratory Lab Mobile Phlebotomy [facility] [address] [place] [address] Gm, Gml Mobile Home Draw [address] [place] [address] 08/16/2023 9:30 AM EST Laboratory Lab Mobile Phlebotomy [facility] [address] [place] [address] [facility] Mobile Home Draw [address] [place] [address] 08/16/2023 10:00 AM EST Imaging Radiology [facility] [address] [address] 08/30/2023 9:30 AM EDT Laboratory Lab Mobile Phlebotomy [facility] [address] [place] [address] [facility] Mobile Home Draw [address] [place] [address] 09/03/2023 10:00 AM EDT Imaging Radiology [address] [place] [address] 09/13/2023 9:30 AM EDT Office Visit Cardiology, [address] [place] [address] Tho Park MD [address] [place] [address] 09/28/2023 9:00 AM EDT Office Visit Rheumatology [facility] [address] [facility] [place] [address] Julián Barber CRNP [address] [employer] [place] [address] 10/03/2023 10:40 AM EDT Office Visit General Internal Medicine [facility] 200 [facility] [place] [address] Sourav Verde MD 200 [facility] [place] [address] Scheduled Orders Name Type Priority Associated Diagnoses Orde r Schedule BASIC METABOLIC PANEL Lab Routine Acute on chronic diastolic (congestive) heart failure (HCC) Expected: 07/18/2023 (Approximate), Expires: 07/03/2024 Scheduled Referrals Name Type Priority Associated Diagnoses [...] Additional history exists CKD PHOS USE SMARTSET 58560 09/22/2023 04/0 11/2022, 09/01/2021, 08/18/2020, Additional history exists HbA1c 09/26/2023 03/27/2023, 040 11/2022, 03/10/2022, Additional history exists GFR 12/31/2023 07/02/2023, 08/2023, 05/17/2023, Additional history exists Diabetic Eye Exam 01/17/2024 01/16/2023, , 09/04/2022, Additional history exists Depression Screening 03/27/2024 03/27/2023 CKD HGB USE SMARTSET 24139 05/17/202405/17, 05/17/2023, 03/27/2023, Additional history exists Pneumococcal Vaccine: 65+ Years Completed 06/16/2015, 11/18/2007, 04/22/2001 GARDASIL-HPV IMMUNIZATION SERIES Aged Out No longer eligible based on patient's age to complete this topic MENINGOCOCCAL (MENACTRA/MENVEO) Aged Out No longer eligible based on patient's age to complete this topic documented as of this encounter Medical Devices Not on filedocumented as of this encounter Results * (ABNORMAL) ERYTHROCYTE SEDIMENTATION RATE (ESR) (07/02/2023 11:19 AM EST) ESR 27(H) <20 mm/hour 07/02/2023 9:06 PM EST LAB[facility]ORY [facility] Blood Venous blood specimen / Unknown Venipuncture / Unknown 07/02/2023 11:19 AM EST 07/02/2023 11:19 AM EST Saranya Cordero MD LAB BLOOD ORDERABLES LABORATORY [facility] [address] [place] [address] * MAGNESIUM (07/02/2023 11:19 AM EST) Magnesium 2.2 1.5 - 2.6 mg/dL 07/02/2023 8:01 PM EST [facility] Blood Venous blood specimen / Unknown Venipuncture / Unknown 07/02/2023 11:19 AM EST 07/02/2023 11:19 AM EST Saranya Cordero MD LAB BLOOD ORDERABLES LABORATORY [facility] [address] [place] [address] * (ABNORMAL) COMPREHENSIVE METABOLIC PANEL (07/02/2023 11:19 AM EST) BUN 57(H) 6 - 20 mg/dL 07/02/2023 1:10 PM EST LABORATORY [place] 57-10 Creatinine 1.2 0.6 - 1.2 mg/dL 07/02/2023 1:10 PM EST LABORATORY [place] 57-10 Estimated Glomerular Filtration Rate 57(L) >=60 mL/min 07/02/2023 1:10 PM EST LABORATORY [place] 57-10 Comment:eGFR is calculated b ased on the CKD-EPI 2020 equation Sodium 138 135 - 146 mmol/L 07/02/2023 1:10 PM EST LABORATORY [place] 57-10 Potassium 4.7 3.5 - 5.1 mmol/L 07/02/2023 1:10 PM EST LABORATORY [place] 57-10 Chloride 95(L) 98 - 107 mmol/L 07/02/2023 1:10 PM EST LABORATORY [place] 57-10 CO2 27 22 - 32 mmol/L 07/02/2023 1:10 PM EST LABORATORY [place] 57-10 Anion Gap 16(H) 7 - 15 mmol/L 07/02/2023 1:10 PM EST LABORATORY [place] 57-10 Glucose 115 70 - 120 mg/dL 07/02/2023 1:10 PM EST LABORATORY [place] 57-10 Albumin 3.5(L) 3.8 - 5.0 g/dL 07/02/2023 1:10 PM EST LABORATORY [place] 57-10 AST 28 10 - 50 U/L 07/02/2023 1:10 PM EST LABORATORY [place] 57-10 Alkaline Phosphatase 107 35 - 130 U/L 07/02/2023 1:10 PM EST LABORATORY [place] 57-10 Bilirubin, Total 1.0 <=1.2 mg/dL 07/02/2023 1:10 PM EST LABORATORY [place] 57-10 Calcium 10.4(H) 8.4 - 10.2 mg/dL [...] BLOOD ORDERABLES LABORATORY [place] 57-10 [address] [place] [address] documented in this encounter Visit Diagnoses Diagnosis [...] and unspecified hyperlipidemia Atherosclerosis of [place] coronary artery of [place] heart without angina pectoris Moderate mitral regurgitation [...] etiology documented in this encounter Care Teams Credit Control Officer Relationship Specialty Start Date End Date Sourav Verde MD 200 [facility] [place] [address] PCP - General Internal Medicine 02/28/21 documented as of this encounter
--- OUTSIDE RECORDS SUMMARY | 2023-07-08 08:15 | External Medical Summary ---
Author Name Unknown Address Unknown Organization [id number]:LABORATORY [facility] [place] 57-[address] - [address] [place] [address] Laboratory Report Ordering Provider Test Date Status TRUMAN LIGHT V 07/05/2023 09:36:00 Final Warfarin Therapy
INR: 2 .0-3.0 conventional anticoagulation
INR: 2.5- 3.5 high intensity anticoagulation Observation Date Value Abnormality Reference (Units ) Status PT 07/05/2023 09:36:00 33.7 Above high normal 11 .6-15.2 (seconds) Final INR 07/05/2023 09:36:00 3.3 Above high normal 0. 8-1.2 Final Performing Location [facility] 0 - [address] [place] [address]
--- OUTSIDE RECORDS SUMMARY | 2023-07-08 08:15 | External Medical Summary ---
Author Name Unknown Address Unknown Organization [id number]:LABORATORY [place] 57-[address] - [address] [place] [address] Laboratory Report Ordering Provider Test Date Status LEVAR DICK 07/05/2023 09:36:00 Final Observation Date Value Abnormality Reference (Units ) Status BUN 07/05/2023 09:36:00 61 Above high normal 6-20 (mg/dL) Final Creatinine 07/05/2023 09:36:00 1.3 Above high normal 0.6-1.2 (mg/dL) Final Glomerular filtration rate/1.73 sq M.predicted [Volume Rate/Area] in Serum, Plasma or Blood by Creatinine-based formula (CKD-EPI) 07/05/2023 09:36:00 56 Below low normal >=60 (mL/min) Final eGFR is calculated based on the CKD-EPI 2020 equation SODIUM 07/05/2023 09:36:00 139 135-146 (m mol/L) Final Potassium 07/05/2023 09:36:00 4.3 3.5-5.1 (m mol/L) Final Cl 07/05/2023 09:36:00 99 98-107 (mm ol/L) Final CO2 07/05/2023 09:36:00 28 22-32 (mmo l/L) Final Anion gap 07/05/2023 09:36:00 12 7-15 (mmol /L) Final Glucose 07/05/2023 09:36:00 139 Above high normal 70 -120 (mg/dL) Final Calcium 07/05/2023 09:36:00 9.9 8.4-10.2 ( mg/dL) Final Performing Location [facility] 0 - [address] [place] [address]
--- OUTSIDE RECORDS SUMMARY | 2023-07-08 08:15 | External Medical Summary | Summary of Care ---
Author Name Unknown Organization [facility] Address [address] [place] [facility] [place] [place] [address] Phone [phone] Care Team Providers Care Counter Sales Person Name Role Phone Sourav Verde MD Primary Care Provider + Reason for Visit * Reason Comments Dosage Adjustment In Person (Anticoag Cl inic) Encounter Details Date Type Department Care Team (Latest Contact Info) Description 06/27/2023 11:40 AM EST Anticoagulation Pharmacy, [facility] [address] [place] [address] Pharmacist1, [facility] 200 [facility] [place] [address] S/P AORTIC VALVE REPLACEMENT-[place]*; S/P aortic valve replacement; Anticoagulation management encounter; technician terminal and repeater current use of anticoagulant therapy Allergies Active [...] goal of less than 7.0% ([facility]) Use to test blood glucose twice a day E11.9 200 Strip 3 03/06/2023 Active Insulin Aspart 100 UNIT/ML Injection Solution (NovoLOG)Indicatio ns:Type 2 diabetes mellitus with hemoglobin A1c goal of less than 7.0% ([facility]) INJECT 15 UNITS SUBCUTANEOUSLY WITH BREAKFAST [...] Oral CapsuleIndications :HTN, goal below 140/80,Mitral stenosis Take 1 Capsule by mouth in the morning. HOLD UNTIL DIRECTED. 0 06/27/2023 Active Furosemide 40 MG Oral Tablet (Lasix)Indications :Acute on chronic diastolic (congestive) heart failure (HCC),Edema, unspecified Take one daily and additional one at [...] Taxonomy. Pernicious anemia 08/03/2008 CORONARY ATHEROSCLER. OF [place] CORONARY VESSEL 08/28/2006 S/P AORTIC VALVE REPLACEMENT-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 technician terminal and repeater current use of anticoagulant therapy 1 08/04/2002 [...] of this encounter Progress Notes * Perico Wrihgt RPh - 06/27/2023 12:08 PM EST Images from the original note were not included. Medication Therapy Disease Management - Anticoagulation Kieran Rojas 1940 Description Vitamin K 2.5mg 03/26 Patient Findings Positives: Missed doses (Coumadin held the past 4 days for elevated INR at [facility].) Negatives: Signs/symptoms of thrombosis, Signs/symptoms of bleeding, Change in health, Change in alcohol use, Change in activity, Upcoming invasive procedure, Extra doses, Change in medications, Change in diet/appetite, Bruising INR Result As of 06/27/2023 INR goal: 2.5-3.0 INR used for dosin.2 (06/27/2023) Warfarin Plan As of 06/27/2023 Full warfarin instructions: 4 mg every Sat; 2 mg all other days Next INR check: 07/05/2023 Repeat PT/INR in 8 day(s) Weekly dose: decreased Perico Mancini RPh, CACP, CDE Clinical Pharmacist Medication Therapy Management [facility] 06/27/2023 12:14 PM documented in this encounter Plan of Treatment Upcoming Encounters Date Type Department Care Team (Late st Contact Info) Description 07/02/2023 9:15 AM EST [facility] [address] [facility] [place] [address] 07/02/2023 11:30 AM EST Nurse Only Ancillary [facility] [address] [facility] [place] [address] [facility], Nurse Fam Prac [address] [place] [address] 07/05/2023 9:30 AM EST Laboratory Lab Mobile Phlebotomy [facility] [address] [place] [address] [facility], Gml Mobile Home Draw [address] [place] [address] 07/05/2023 5:30 PM EST Anticoagulation Pharmacy, [facility] 200 [place] [address] Pharmacist1, [facility] 200 [place] [address] 07/19/2023 9:30 AM EST Laboratory Lab Mobile Phlebotomy [facility] [address] [place] [address] [facility], Gml Mobile Home Draw [address] [place] [address] 08/02/2023 9:30 AM EST Laboratory Lab Mobile Phlebot[facility] [address] [place] [address] [facility], Gml Mobile Home Draw [address] [place] [address] 08/16/2023 9:30 AM EST Laboratory Lab Mobile Phlebotomy C [address] [place] [address] [facility], Gml Mobile Home Draw [address] [place] [address] 08/16/2023 10:00 AM EST Imaging Radiology [facility] [address] [facility] [place] [address] 08/30/2023 9:30 AM EDT Laboratory Lab Mobile Phlebotomy [facility] [address] [place] [address] [facility], [facility] Mobile Home Draw [address] [place] [address] 09/13/2023 9:30 AM EDT Office Visit Cardiology, [facility] 132 [facility] [place] [address] Tho Park MD 132 [place] [address] 09/28/2023 9:00 AM EDT Office Visit Rheumatology [place] [address] [place] [address] Julián Barber CRNP [address] [place] [address] 10/03/2023 10:40 AM EDT Office Visit General Internal Medicine [facility] 200 [place] [address] Sourav Verde MD 200 [place] [place] [address] Health Maintenance Due Date Last Done Comments [...] Additional history exists CKD PHOS USE SMARTSET 34546 09/22/2023 04/0 11/2022, 09/01/2021, 08/18/2020, Additional history exists HbA1c 09/26/2023 03/27/2023, 04/0 11/2022, 03/10/2022, Additional history exists GFR 12/19/2023 06/20/2023, 04/20, 03/27/2023, Additional history exists Diabetic Eye Exam 01/17/2024 01/16/2023, , 09/04/2022, Additional history exists Depression Screening 03/27/2024 03/27/2023 CKD HGB USE SMARTSET 22105 05/17/202405/17, 05/17/2023, 03/27/2023, Additional history exists Pneumococcal [...] Comments INR FINGERSTICK, POINT OF CARE STAT 06/27/2023 12:10 PM EST S/P aortic valve replacement Anticoagulation management encounter technician terminal and repeater current use of anticoagulant therapy documented in this encounter Results * INR FINGERSTICK, POINT OF CARE (06/27/2023 12:10 PM EST) Fingerstick INR 2.2 INR 12:23 PM EST LABORATORY [place] 56-02 Blood 06/27/2023 12:1 0 PM EST 06/27/2023 12:23 PM EST Narrative [facility] 56-02 - 06/27/2023 12:23 PM EST Therapeutic ranges for non-operative patients: Prophylaxsis/treatment of DVT: (Range:2.0-3.0) Treatment of pulmonary embolism:(Range:2.0-3.0) Prevention of systemic embolism from: -tissue heart valves -acute myocardial infarction -valvular heart disease -atrial fibrillation (Range: 2.0-3.0) Mechanical prosthetic valves: (Range: 2.5-3.5) Perico Addis V, RPh LAB POINT OF CARE TE ST DOCKED DEVICE UNSOLICITED RESULTS [facility] 200 [facility] [place] [address] documented in this encounter Visit Diagnoses Diagnosis S/P aortic valve replacement- Primary Heart valve replaced by other means S/P AORTIC VALVE REPLACEMENT-[place] Heart valve replaced by other means Anticoagulation management encounter Encounter for therapeutic drug monitoring halfway current use of anticoagulant therapy documented in this encounter Care Teams Counter Sales Person Relationship Specialty Start Date End Date Sourav Verde MD [facility] [address] PCP - General Internal Medicine 02/28/21 documented as of this encounter
--- OUTSIDE RECORDS SUMMARY | 2023-07-08 08:15 | External Medical Summary ---
Author Name Unknown Address Unknown Organization K01:LABORATORY [facility] - [address] [place] [address] Laboratory Report Ordering Provider Test Date Status LEVAR DICK 07/02/2023 11:19:11 Final Observation Date Value Abnormality Reference (Units ) Status Magnesium 07/02/2023 11:19:11 2.2 1.5-2.6 (m g/dL) Final Performing Location [facility] - [address] [place] [address]
--- OUTSIDE RECORDS SUMMARY | 2023-07-08 08:15 | External Medical Summary | Summary of Care ---
Author Name Unknown Organization [facility] Address [address] [place] [facility] [address] Phone [phone] Care Team Providers Care Riddler Operator Name Role Phone Sourav Verde MD Primary Care Provider + Reason for Visit * Reason Onset Date Comments Hospital Follow-Up 06/25/2023 BELINDA Encounter Details Date Type Department Care Team (Late st Contact Info) Description 06/25/2023 Telephone Ancillary [facility] [place] [address] [place] [address] Malini Berger RN Hospital Follow-Up (BELINDA) Allergies Active Allergy Reactions Criticality Noted Date Comments Niacin Er Flushing,Itching 03/29/2010 documented as of this encounter (statuses as of 06/25/2023) Medications Medication Sig Dispensed Refills Start Date [...] goal of less than 7.0% ([facility]) INJECT 84 UNITS UNDER SKIN BEFORE BED [...] goal of less than 7.0% ([facility]) Use to test blood glucose twice a day E11.9 200 Strip 3 03/06/2023 Active Insulin Aspart 100 UNIT/ML Injection Solution (NovoLOG)Indicatio ns:Type 2 diabetes mellitus with hemoglobin A1c goal of less than 7.0% ([facility]) INJECT 15 UNITS SUBCUTANEOUSLY WITH BREAKFAST 15 [...] morning. Take 0.5 tablets on Sun, Tu, Fri Hold Take 1 tablet Mon, Wed, Sat. 0 05/14/2023 Active metFORMIN HCl 1000 MG Oral Tablet (Glucophage)Indica tions:Type 2 diabetes mellitus with hemoglobin A1c goal of 7.0%-8.0% (HCC) TAKE 1 TABLET BY MOUTH IN THE MORNING AND BEFORE BEDTIME 180 Tablet 1 06/08/2023 Active documented as of this encounter (statuses as of 06/25/2023) Active Problems Problem Noted Date Diagnosed Date [...] Taxonomy. Pernicious anemia 08/03/2008 CORONARY ATHEROSCLER. 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 Transitions of Care Note Reason for Referral:Recent Admission Phone visit for follow up: BELINDA Admitted to: [facility], Date: 06/20/2022 Discharged to: Home Self Care, Date: 06/24/2022 Diagnosis driving hospitalization: CHF exacerbation, + COVID Source/Contact: Other son SUBJECTIVE Consent: Verbal consent for review of hospital discharge: Yes REVIEW OF SYSTEMS Patient/Other Reports: Current patient/caregiver problems or concerns: patient doing "pretty good" CV: Denies problems Pulmonary: Cough- occasional Chills/Sweats/Fever:Denies chills/sweats Denies fever Appetite:Denies problems such as nausea, vomiting, burning, decreased appetite Current diet: hearty healthy Bowel: denies problems date of last BM: 06-25-2022 Bladder: denies problems and Hx of UTI's Wound (If applicable): N/A Pain:Denies Sleep:Denies problems FUNCTIONAL STATUS: ADL'S: Needs Assistance With:N/A as pt is independent IADL'S: Needs Assistance With:Grocery Shopping, Cooking food, and Routine Housework Cognitive and Mental Health: denies problems, alert and oriented x 3, and able to communicate, understand instructions, process information. MEDICATION RECONCILIATION Medications: Discharge med list reviewed with patient or caregiver New medication(s) filled since hospitalization- see below Discontinued medication(s) since hospitalization- see below Reports all medications taken as prescribed. ASSESSMENT Medication Risk Assessment: No risks identified Did patient fail outpatient treatment? No Discharge instructions available for review? Yes PLAN Symptom Monitoring Interventions:Member/caregiver education - signs and symptoms to contact PrimaryCare (DO NOT DELETE-Three davis symptoms patient is to report to PCP) 1. Temp greater than 101 2. Increasing cough, sob, wheezing 3. confusion [employer] Attendant of Care interventions/Action Plan: 5 - 7 day follow-up with PCP in place - Date: 06/27/[address] Cordero Educated on role of BELINDA completed with patient/caregiver. Educated patient/caregiver on patient right to have input on BELINDA plan of care. Verification of Home Health/DME if indicated: NO n/a Identified Care Gaps: Yes Care Gaps closed this call: Appointment made or confirmed and Transition of Care follow-up communication Re-evaluation of Plan of Care and progress towards goals achievement: Patient education this visit: Verbal, Encouraged hourly ambulation, deep breathing and coughing. Encouraged use of probiotic while antibiotics. Plan to discharge needs met, verbalizes understanding and agrees with plan. Malini Olguin, RN documented in this encounter Plan of Treatment Upcoming Encounters Date Type Department Care Team (Latest Contact Info) Description 06/25/2023 5:50 PM EST Anticoagulation Pharmacy, [facility] 200 [facility] [place] [address] Pharmacist1, [facility] 200 [facility] [place] [address] S/P AORTIC VALVE REPLACEMENT[place]* 06/27/2023 11:00 AM EST Office Visit General Internal Medicine [facility] [place] [address] [place] [address] Saranya Cordero MD 200 [facility] [place] [address] 06/27/2023 11:50 AM EST Laboratory Laboratory [facility] [place] [address] [place] [phone] [place], Lab [facility] [address] [facility] [place], [place] [address] 06/27/2023 5:30 PM EST Anticoagulation Pharmacy, [facility] [address] [place] [address] Pharmacist1, [facility] [address] [facility] [place] [address] 07/02/2023 9:15 AM EST Imaging Radiology [facility] 132 [facility] [place] [address] 07/05/2023 9:30 AM EST Laboratory Lab Mobile Phlebotomy [facility] [address] [place] [address] [facility], [facility] Mobile Home Draw [address] [place] [address] 07/19/2023 9:30 AM EST Laboratory Lab Mobile Phlebotomy [facility] [address] [place] [address] [facility], [facility] Mobile Home Draw [address] [place] [address] 08/02/2023 9:30 AM EST Laboratory Lab Mobile Phlebotomy [facility] [address] [place] [address] [facility], [facility] Mobile Home Draw [address] [place] [address] 08/16/2023 9:30 AM EST Laboratory Lab Mobile Phlebotomy [facility] [address] [place] [address] Gm, Gml Mobile Home Draw [address] [place] [address] 08/16/2023 10:00 AM EST Imaging Radiology [address], [place] [address] [place] [address] 08/30/2023 9:30 AM EDT Laboratory Lab Mobile Phlebotomy [facility] [address] [place] [address] [facility], [facility] Mobile Home Draw [address] [place] [address] 10/03/2023 10:40 AM EDT Office Visit General Internal Medicine [facility] [address] [place], [place] [address] Sourav Verde MD [address] [place], [place] [address] Health Maintenance Due Date Last Done Comments [...] Additional history exists CKD PHOS USE SMARTSET 07569 09/22/2023 04/0 11/2022, 09/01/2021, 08/18/2020, Additional history exists HbA1c 09/26/2023 03/27/2023, 04/0 11/2022, 03/10/2022, Additional history exists GFR 12/19/2023 06/20/2023, 04/20, 03/27/2023, Additional history exists Diabetic Eye Exam 01/17/2024 01/16/2023, , 09/04/2022, Additional history exists Depression Screening 03/27/2024 03/27/2023 CKD HGB USE SMARTSET 33456 05/17/202405/17, 05/17/2023, 03/27/2023, Additional history exists Pneumococcal Vaccine: 65+ Years Completed 06/16/2015, 11/18/2007, 04/22/2001 GARDASIL-HPV IMMUNIZATION SERIES Aged Out No longer eligible based on patient's age to complete this topic MENINGOCOCCAL (MENACTRA/MENVEO) Aged Out No longer eligible based on patient's age to complete this topic documented as of this encounter Medical Devices Not on filedocumented as of this encounter Care Teams Riddler Operator Relationship Specialty Start Date End Date Sourav Verde MD [address] [place] [address] PCP - General Internal Medicine 02/28/21 documented as of this encounter
--- OUTSIDE RECORDS SUMMARY | 2023-07-08 08:15 | External Medical Summary | Summary of Care ---
Author Name Unknown Organization [facility] Address [address] [facility] [address] Phone [phone] Care Team Providers Care Curtain Feller Blindstitch Name Role Phone Sourav Verde MD Primary Care Provider + Reason for Visit * Reason Comments Hospital Follow-Up Dosage Adjustment Via Phone (anticoag Cl inic) Encounter Details Date Type Department Care Team (Latest Contact Info) Description 06/25/2023 5:50 PM EST Anticoagulation Pharmacy, [facility] 200 [facility] [place] [address] Pharmacist1, [facility] 200 [facility] [place] [address] S/P AORTIC VALVE REPLACEMENT[place]* Allergies Active [...] A1c goal of less than 7.0% ([facility]) INJECT 84 UNITS UNDER SKIN BEFORE [...] A1c goal of less than 7.0% ([facility]) Use to test blood glucose twice a day E11.9 200 Strip 3 03/06/2023 Active Insulin Aspart 100 UNIT/ML Injection Solution (NovoLOG)Indicatio ns:Type 2 diabetes mellitus with hemoglobin A1c goal of less than 7.0% ([facility]) INJECT 15 UNITS SUBCUTANEOUSLY WITH BREAKFAST [...] tablet Sun, Sun, Sat. 0 05/14/2023 Active metFORMIN HCl [...] Taxonomy. Pernicious anemia 08/03/2008 CORONARY ATHEROSCLER. 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 penitentiary current use of anticoagulant therapy 1 08/04/2002 [...] Progress Notes * Perico Wright RPh - 06/25/2023 11:52 AM EST Images from the original note were not included. Patient Phone Numbers Patient was discharged from [facility] 06/24 following admission 06/20 for elevated INR and Covid positive. INR at admission was >9.5. Vitamin K 2.5mg given. Patient discharged with Coumadin on hold until 06/27. INR scheduled 06/27 thru lab at [facility]. No space for fingerstick. You are prescribed Augmentin twice a day for 4 more days to complete the antibiotic course for the UTI. Your INR was found to be on the higher side. It was 4.3 today. Please continue to hold INR till yousee your primary care doctor. You need to have adjustment to the dose of the Coumadin. Perico Mancini RPh, CACP Clinical Pharmacist [facility] 06/25/2023, 11:52 AM documented in this encounter Plan of Treatment Upcoming Encounters Date Type Department Care Team (Late st Contact Info) Description 06/27/2023 11:00 AM EST Office Visit General Internal Medicine [facility] [address] [place] [address] Saranya Cordero MD [address] [place] [address] 06/27/2023 11:50 AM EST Laboratory Laboratory [facility] [address] [place] [address] [id number] [facility] [place] [address] [place] [address] 06/27/2023 5:30 PM EST Anticoagulation Pharmacy, [facility] [address] [place] [address] [address] Pharmacist1, [facility] [address] [place] [address] 07/02/2023 9:15 AM EST Imaging Radiology [facility] [address] [place] [address] 07/05/2023 9:30 AM EST Laboratory Lab Mobile Phlebotomy [facility] [address] [place] [address] [facility], [facility] Mobile Home Draw [address] [place] [address] 07/19/2023 9:30 AM EST Laboratory Lab Mobile Phlebotomy [facility] [address] [place] [address] [facility], [facility] Mobile Home Draw [address] [place] [address] 08/02/2023 9:30 AM EST Laboratory Lab Mobile Phlebot[facility] [address] [place] [address] [facility], [facility] Mobile Home Draw [address] [place] [address] 08/16/2023 9:30 AM EST Laboratory Lab Mobile Phlebotomy [facility] [address] [place] [address] [facility], [facility] Mobile Home Draw [address] [place] [address] 08/16/2023 10:00 AM EST Imaging Radiology [address] [place] [address] 08/30/2023 9:30 AM EDT Laboratory Lab Mobile Phlebotomy [facility] [address] [place], [place] [id number] [facility], [facility] Mobile Home Draw [address] [place] [address] 10/03/2023 10:40 AM EDT Office Visit General Internal Medicine [facility] [address] [place] [address] Sourav Verde MD 200 [place] [address] Health Maintenance Due Date Last Done Comments [...] Additional history exists CKD PHOS USE SMARTSET 14087 09/22/2023 04/0 11/2022, 09/01/2021, 08/18/2020, Additional history exists HbA1c 09/26/2023 03/27/2023, 04/0 11/2022, 03/10/2022, Additional history exists GFR 12/19/2023 06/20/2023, 11, 03/27/2023, Additional history exists Diabetic Eye Exam 01/17/2024 01/16/2023, , 09/04/2022, Additional history exists Depression Screening 03/27/2024 03/27/2023 CKD HGB USE SMARTSET 53888 05/17/202405/17, 05/17/2023, 03/27/2023, Additional history exists Pneumococcal [...] means documented in this encounter Care Teams Curtain Feller Blindstitch Relationship Specialty Start Date End Date Sourav Verde MD 200 [place] [address] PCP - General Internal Medicine 02/28/21 documented as of this encounter
--- OUTSIDE RECORDS SUMMARY | 2023-07-08 08:15 | External Medical Summary | Summary of Care ---
Author Name Unknown Organization [facility] Address [address] [facility] [address] Phone [phone] Care Team Providers Care Piccoloist Name Role Phone Sourav Verde MD Primary Care Provider + Reason for Visit * Reason Onset Date Comments Blood Pressure Check 07/02/2023 Encounter Details Date Type Department Care Team (Late st Contact Info) Description 07/02/2023 11:30 AM EST Nurse Only Ancillary [facility] [address] [facility], Nurse [facility] [address] [facility] [address] Blood Pressure Check Allergies Active Allergy Reactions Criticality Noted Date [...] hemoglobin A1c goal of less than 7.0% ([facility]) INJECT 84 UNITS UNDER SKIN BEFORE [...] hemoglobin A1c goal of less than 7.0% ([facility]) Use to test blood glucose twice a day E11.9 200 Strip 3 03/06/2023 Active Insulin Aspart 100 UNIT/ML Injection Solution (NovoLOG)Indicatio ns:Type 2 diabetes mellitus with hemoglobin A1c goal of less than 7.0% ([facility]) INJECT 15 UNITS SUBCUTANEOUSLY WITH BREAKFAST [...] Central retinal vein occlusion of right eye 05/0 07/2021 Chronic diastolic congestive heart failure 09/01 [...] Taxonomy. Pernicious anemia 08/03/2008 CORONARY ATHEROSCLER. 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 The blood pressure was obtained using the left arm in the sitting position using a adult cuff. The results were charted in Vital Signs. BP Readings from Last 3 Encounters: 07/02/23 124/60 06/27/23 102/60 05/17/23 100/50 BP 124/60 , feeling better since med change. Not as weak. Patient denies headache, pressure in head, dizziness, lightheadedness, chest discomfort, focal neurological symptoms, change in vision, nose bleeds. Did patient take medications today? Yes Patient was instructed to follow-up with their primary care provider. documented in this encounter Plan of Treatment Upcoming Encounters Date Type Department Care Team (Latest Contact Info) Description 07/02/2023 11:50 AM EST Laboratory Laboratory, [facility] 132 [facility] [place] [phone] [facility] [facility] 132 [facility] [place], [place] [address] Acute on chronic diastolic (congestive) heart failure (HCC); Elevated sed rate; Sudden loss of vision, bilateral 07/05/2023 9:30 AM EST Laboratory Lab Mobile Phlebotomy [facility] [address] [place] [address] [facility], [facility]ml Mobile Home Draw [address] [place] [address] 07/05/2023 5:30 PM EST Anticoagulation Pharmacy, [facility] 200 [place] [address] Pharmacist1, [facility] 200 [facility] [place] [address] 07/19/2023 9:30 AM EST Laboratory Lab Mobile Phlebotomy [facility] [address] [place] [address] [facility], Gml Mobile Home Draw [address] [place] [address] 08/02/2023 9:30 AM EST Laboratory Lab Mobile Phlebotomy [facility] [address] [place] [address] [facility], Gml Mobile Home Draw [address] [place] [address] 08/16/2023 9:30 AM EST Laboratory Lab Mobile Phlebotomy [facility] [address] [place] [address] [facility], G[facility] Mobile Home Draw [address] [place] [address] 08/16/2023 10:00 AM EST Imaging Radiology [facility] 132 [facility] [place] [address] 08/30/2023 9:30 AM EDT Laboratory Lab Mobile Phlebotomy [facility] [place] [address] [place] [address] [facility], [facility] Mobile Home Draw [address] [place] [address] 09/03/2023 10:00 AM EDT Imaging Radiology [facility] 132 [facility] [place] [address] 09/13/2023 9:30 AM EDT Office Visit Cardiology, [facility] 132 [facility] [place] [address] Tho Park MD 132 [place] [address] 09/28/2023 9:00 AM EDT Office Visit Rheumatology [address] [place] [address] Julián Barber CRNP [address] [place] [address], [place] [address] 10/03/2023 10:40 AM EDT Office Visit General Internal Medicine [facility] 200 [place] [address] Sourav Verde MD 200 [place] [address] Scheduled Orders Name Type Priority Associated Diagnoses Orde r Schedule BLOOD PRESSURE Procedures Routine HTN, goal below 130/80 Ordered: 07/02/2023 Health Maintenance Due Date Last Done Comments [...] Additional history exists CKD PHOS USE SMARTSET 68980 09/22/2023 04/0 11/2022, 09/01/2021, 08/18/2020, Additional history exists HbA1c 09/26/2023 03/27/2023, 04/0 11/2022, 03/10/2022, Additional history exists GFR 12/19/2023 06/20/2023, 04/20, 03/27/2023, Additional history exists Diabetic Eye Exam 01/17/2024 01/16/2023, , 09/04/2022, Additional history exists Depression Screening 03/27/2024 03/27/2023 CKD HGB USE SMARTSET 58766 05/17/202405/17, 05/17/2023, 03/27/2023, Additional history exists Pneumococcal [...] encounter Visit Diagnoses Diagnosis HTN, goal below 130/80- Primary Unspecified essential hypertension Acute on chronic diastolic (congestive) heart failure (HCC) Elevated sed rate Elevated sedimentation rate Sudden loss of vision, bilateral documented in this encounter Care Teams Piccoloist Relationship Specialty Start Date End Date Sourav Verde MD [address] [place] [address] PCP - General Internal Medicine 02/28/21 documented as of this encounter
--- OUTSIDE RECORDS SUMMARY | 2023-07-08 08:16 | External Medical Summary | Summary of Care ---
Author Name Unknown Organization [facility] Address [address] [facility] [place] [address] Phone [phone] Care Team Providers Care Pile Trimmer Name Role Phone Sourav Verde MD Primary Care Provider + Reason for Visit * Reason Comments Hospital Follow-Up Dosage Adjustment Via Phone (anticoag Cl inic) Encounter Details Date Type Department Care Team (Latest Contact Info) Description 06/21/2023 5:10 PM EST Anticoagulation Pharmacy, [place] [address] [place] [address] [facility] [address] [place] [address] S/P AORTIC VALVE REPLACEMENT-[place]* Allergies Active Allergy Reactions Criticality Noted Date Comments Niacin Er Flushing,Itching 03/29/2010 documented as of this encounter (statuses as of 06/21/2023) Medications Medication Sig Dispensed Refills Start Date [...] as of this encounter (statuses as of 06/21/2023) Active Problems Problem Noted Date Diagnosed Date [...] Pernicious anemia 08/03/2008 CORONARY ATHEROSCLER. OF [place] CORONARY VESSEL 08/28/2006 S/P AORTIC VALVE REPLACEMENT-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 terminologist current use of anticoagulant therapy 1 08/04/2002 Overview: ICD-10 update of inactive term Anticoagulation management encounter 12/18/2001 CHR ISCHEMIC HRT DIS NOS 01/22/2001 GENERAL OSTEOARTHROSIS 01/22/2001 SBE (subacute bacterial endocarditis) prophylaxi s candidate documented as of this encounter (statuses as of 06/21/2023) Resolved Problems Problem Noted Date Diagnosed Date [...] as of this encounter (statuses as of 06/21/2023) Immunizations Name Administration Dates Next Due Influenza, [...] of this encounter Progress Notes * Perico Wright, [facility] - 06/21/2023 8:13 AM EST Images from the original note were not included. Patient Phone Numbers INR >9. Patient in CHF and went to ER. Admitted to [facility] and given Vitamin K 2.5mg IV. Pending INR this AM. Will need to be cautious when restarting Coumadin. Will check for discharge 06/22. 83-year-old man recently on high-dose prednisone therapy with a history of atrial fibrillation on Coumadin presents with significant shortness of breath. In the last few days he had increased edema in his lower legs with dyspnea on exertion. He has been taking prednisone 60 for the past month and response to painless vision loss with an elevated ESR. He also was found to have COVID-19 infection. On exam he is in rapid ventricular response and has a possible UTI. He was started on broad-spectrumantibiotics started on IV Lasix, and given Lopressor 5 mg IV with improvement in his heart rate. Dexamethasone 6 mg IV daily will replace prednisone. It is possible that prednisone contributed to fluid retention, as a cause for acute heart failure exacerbation. He has a negative troponin and no ST changes to suggest acute ischemia. He does have possible UTI which this in conjunction with heart failure may be contributing to his atrial fibrillation with rapid regular response. He is MRSA positive and given his recent admission and stay in rehab vancomycin was added to cefepime with persistent bibasilar opacities seen on chest x-ray. Will plan to de- escalate this pending culture results and clinical improvement in the next 48 hours. A Harper catheter was placed and intravenous Lasix was given. BiPAP was placed and his ABG showed a respiratory alkalosis. He was hyperventilating and not hypoxic which was the reason for BiPAP. Respiratory failure improved after several hours on BiPAP and he was able to successfully come off this treatment. This was in conjunction with Lasix that caused a 1400 cc output of urine into his Harper bag within several hours. He does report some intermittent burning when he urinates. He denies any chest pain. He does report ongoing coughing and nasal congestion. He has not gotten much sleep recently. Son is at bedside and assist with history. He has not been eating recently and INR is supratherapeu tic. A small dose of vitamin K was given in setting of likely poor nutritional state. 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 During last admission he was placed on prednisone 60 mg daily with an ESR and left eye vision decline. He still has some residual vision in that eye but he remained on prednisone for the last month. I discussed with this patient and his son that prednisone may have contributed to fluid retention and this heart failure exacerbation. On exam he is comfortable and lung exam is unremarkable with clear breath sounds throughout. Cardiac exam reveals S1-S2 heard with no murmurs gallops or rubs. Rate and rhythm are irregular. He does have 2+ pitting edema bilaterally in the lower extremities which according to his son, was not there until the last week or so. 1. Acute respiratory failure-resolved with BiPAP and Lasix 2. OOMVZ-qpzhiihmi-pnutoyoo supportive care efforts. Decadron was started when patient was on BiPAP. He needs to continue steroid therapy pending further recommendations from his boats renter who started him on prednisone 60 mg daily. As he is not hide toxic may be able to switch back to prednisone but would not stop without a wean given several weeks of steroid dependence. In the setting of acute heart failure and edema, would work to remove steroids as soon as possible. 3. Acute on chronic diastolic heart failure-2 doses of Lasix 40 mg IV given with approximately 1.5 L out this evening. This is improving. Hold additional IV Lasix pending morning blood work and cardiology evaluation. Continue current medical therapy otherwise. 4. Atrial fibrillation with rapid ventricular response rate is improved after Lopressor IV this evening, diuresis and initial treatment in the ER. Holding warfarin given supratherapeutic INR. Continue home Toprol XL. 5. Urinary tract infection/bilateral lower lung infiltrates-Cont with broad spectrum abx pending clinical improvement and culture results. 6. Chronic steroid use-cont with prednisone 60mg PO daily. Uncertain length of course recommended, patient has plans to follow with ophthalmology. Would discuss with Dr. Stephane Rosenbaum in am (his boats renter) and work to reduce this slowly given edema and fluid retention issues. Vision was chronically bad even prior to the steroids being started. 7. Supratherapeutic INR on long-term anticoagulation. Vitamin K given tonight. No evidence of bleeding. Hold coumadin and trend INR in am. Perico Mancini RPh, ARNULFOP, CDE Clinical Pharmacist Medication Therapy Management [facility] 06/21/2023, 8:15 AM documented in this encounter Plan of Treatment Upcoming Encounters Date Type Department Care Team (Late st Contact Info) Description 06/22/2023 5:50 PM EST Anticoagulation Pharmacy, [facility] [address] [place] [address] Pharmacist1, [facility] [address] [facility] [place] [address] 07/02/2023 9:15 AM EST Imaging Radiology [facility] [address] [place] [address] 07/05/2023 9:30 AM EST Laboratory Lab [facility] [address] [place], [place] [id number] [facility], [facility] Mobile Home Draw [address] [place] [address] 07/19/2023 9:30 AM EST Laboratory Lab [facility]bot[facility] [address] [place] [address] [facility], [facility] Mobile Home Draw [address] [place] [address] 08/02/2023 9:30 AM EST Laboratory Lab Mobile Ph[facility]bot[facility] [address] [place] [address] [facility], l Mobile Home Draw [address] [place], [place] [address] 08/16/2023 9:30 AM EST Laboratory Lab Mobile [facility]bot[facility] [address] [place] [address] [facility], l Mobile Home Draw [address] [place] [address] 08/16/2023 10:00 AM EST Imaging Radiology [facility] 132 [facility] [place] [address] 08/30/2023 9:30 AM EDT Laboratory Lab Mobile Phlebotomy [facility] [address] [place] [address] [facility], [facility] Mobile Home Draw [address] [place] [address] 10/03/2023 10:40 AM EDT Office Visit General Internal Medicine [facility] [address] [place] [address] [facility] Verde MD [address] [facility] [address] Health Maintenance Due Date Last Done Comments [...] Additional history exists CKD PHOS USE SMARTSET 44354 09/22/2023 04/0 11/2022, 09/01/2021, 08/18/2020, Additional history exists HbA1c 09/26/2023 03/27/2023, 04/0 11/2022, 03/10/2022, Additional history exists GFR 12/19/2023 06/20/2023, 04/20, 03/27/2023, Additional history exists Diabetic Eye Exam 01/17/2024 01/16/2023, , 09/04/2022, Additional history exists Depression Screening 03/27/2024 03/27/2023 CKD HGB USE SMARTSET 77204 05/17/202405/17, 05/17/2023, 03/27/2023, Additional history exists Pneumococcal [...] means documented in this encounter Care Teams Pile Trimmer Relationship Specialty Start Date End Date Sourav Verde MD [address] [place] [address] PCP - General Internal Medicine 02/28/21 documented as of this encounter
--- OUTSIDE RECORDS SUMMARY | 2023-07-08 08:16 | External Medical Summary | Summary of Care ---
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 Pernicious anemia 08/03/2008 CORONARY ATHEROSCLER. OF [place] CORONARY VESSEL 08/28/2006 S/P AORTIC VALVE REPLACEMENT-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 1 08/04/2002 Overview: ICD-10 update of inactive term Anticoagulation management encounter 12/18/2001 CHR ISCHEMIC HRT DIS NOS 01/22/2001 GENERAL OSTEOARTHROSIS 01/22/2001 SBE (subacute bacterial endocarditis) prophylaxi s candidate documented as of this encounter (statuses as of 06/20/2023) Resolved Problems Problem Noted Date Diagnosed Date [...] as of this encounter (statuses as of 06/20/2023) Immunizations Name Administration Dates Next Due Influenza, [...] Description 06/20/2023 5:30 PM EST Anticoagulation Pharmacy, [facility] [address] [facility] [place] [address] Pharmacist1, [facility] [address] [facility] [place] [address] 07/02/2023 9:15 AM EST Imaging Radiology [facility] [address] [place] [address] 07/05/2023 9:30 AM EST Laboratory Lab Mobile Phlebotomy [facility] [address] [place] [address] [facility], [facility] Mobile Home Draw [address] [place] [address] 07/19/2023 9:30 AM EST Laboratory Lab Mobile Phlebotomy [facility] [address] [place] [address] [facility], [facility] Mobile Home Draw [address] [place] [address] 08/02/2023 9:30 AM EST Laboratory Lab Mobile Phlebotomy [facility] [address] [place] [address] [facility], [facility] Mobile Home Draw [address] [place] [address] 08/16/2023 9:30 AM EST Laboratory Lab Mobile Phlebotomy [facility] [address] [place] [address] [facility], [facility] Mobile Home Draw [address] [place] [address] 08/16/2023 10:00 AM EST Imaging Radiology [address] [place] [address] 08/30/2023 9:30 AM EDT Laboratory Lab Mobile Phlebotomy [facility] [address] [place] [address] [facility], [facility] Mobile Home Draw [address] [place] [address] 10/03/2023 10:40 AM EDT Office Visit General Internal Medicine [facility] [address] [place] [address] Sourav Verde MD [address] [place] [address] Pending Results Name Type Priority Associated Diagnoses Date /Time BASIC METABOLIC PANEL Lab Routine Elevated alkaline phosphatase level 06/20/2023 1:27 PM EST PT INR Lab Routine S/P aortic valve replacement Anticoagulation management encounter [facility] current use of anticoagulant therapy 06/20/2023 1:27 PM EST Health Maintenance Due Date Last Done [...] Additional history exists CKD PHOS USE SMARTSET 86974 09/22/2023 04/0 11/2022, 09/01/2021, 08/18/2020, Additional history exists HbA1c 09/26/2023 03/27/2023, 04/0 11/2022, 03/10/2022, Additional history exists GFR 11/15/2023 05/17/2023, 03/18, 09/04/2022, Additional history exists Diabetic Eye Exam 01/17/2024 01/16/2023, , 09/04/2022, Additional history exists Depression Screening 03/27/2024 03/27/2023 CKD HGB USE SMARTSET 01627 05/17/202405/17, 05/17/2023, 03/27/2023, Additional history exists Pneumococcal Vaccine: 65+ Years Completed 06/16/2015, 11/18/2007, 04/22/2001 GARDASIL-HPV IMMUNIZATION SERIES Aged Out No longer eligible based on patient's age to complete this topic MENINGOCOCCAL (MENACTRA/MENVEO) Aged Out No longer eligible based on patient's age to complete this topic documented as of this encounter Medical Devices Not on filedocumented as of this encounter Visit Diagnoses Diagnosis Elevated alkaline phosphatase level Other nonspecific abnormal serum enzyme levels S/P aortic valve replacement Heart valve replaced by other means Anticoagulation management encounter Encounter for therapeutic drug monitoring marine 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
--- OUTSIDE RECORDS SUMMARY | 2023-07-08 08:16 | External Medical Summary | Summary of Care ---
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 Pernicious anemia 08/03/2008 CORONARY ATHEROSCLER. OF [place] CORONARY VESSEL 08/28/2006 S/P AORTIC VALVE REPLACEMENT-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* 06/21/2023 5:10 PM EST Anticoagulation Pharmacy, [address] [address] [facility] [address] [place] [address] 07/02/2023 9:15 AM EST Imaging Radiology [facility] [address] [place] [address] 07/05/2023 9:30 AM EST Laboratory Lab Mobile Ph[facility]bot[facility] [address] [place] [address] [facility] Mobile Home Draw [address] [place] [address] 07/19/2023 9:30 AM EST Laboratory Lab Mobile Phlebotomy [facility] [address] [place] [address] [facility], [facility] Mobile Home Draw [address] [place] [address] 08/02/2023 9:30 AM EST Laboratory Lab Mobile Phlebotomy [facility] [address] [place] [address] [facility], [facility] Mobile Home Draw [address] [place] [address] 08/16/2023 9:30 AM EST Laboratory Lab Mobile Phlebotomy [facility] [address] [place] [address] [facility], [facility] Mobile Home Draw [address] [place] [address] 08/16/2023 10:00 AM EST Imaging Radiology [address] [place] [address], [place] [address] [place] [address] 08/30/2023 9:30 AM EDT Laboratory Lab Mobile Phlebotomy [facility] [address] [place] [address] [facility], [facility] Mobile Home Draw [address] [place] [address] 10/03/2023 10:40 AM EDT Office Visit General Internal Medicine [facility] [address] [place] [address] Sourav Verde MD [address] [facility] [place] [address] Pending Results Name Type Priority Associated Diagnoses Date /Time BASIC METABOLIC PANEL Lab Routine Elevated alkaline phosphatase level 06/20/2023 1:27 PM EST PT INR Lab Routine S/P aortic valve replacement Anticoagulation management encounter buttermaker current use of anticoagulant therapy 06/20/2023 1:27 [...] Additional history exists CKD PHOS USE SMARTSET 95412 09/22/2023 04/0 11/2022, 09/01/2021, 08/18/2020, Additional history exists HbA1c 09/26/2023 03/27/2023, 04/0 11/2022, 03/10/2022, Additional history exists GFR 11/15/2023 05/17/2023, 03/18, 09/04/2022, Additional history exists Diabetic Eye Exam 01/17/2024 01/16/2023, , 09/04/2022, Additional history exists Depression Screening 03/27/2024 03/27/2023 CKD HGB USE SMARTSET 83091 05/17/202405/17, 05/17/2023, 03/27/2023, Additional history exists Pneumococcal [...] Primary Heart valve replaced by other means Elevated alkaline phosphatase level Other nonspecific abnormal serum enzyme levels S/P aortic valve replacement Heart valve replaced by other means Anticoagulation management encounter Encounter for therapeutic drug monitoring buttermaker current use of anticoagulant therapy documented in this encounter Care Teams Director [facility] Relationship Specialty Start Date End Date Sourav Verde MD [address] [facility] [place] [address] PCP - General Internal Medicine 02/28/21 documented as of this encounter
--- OUTSIDE RECORDS SUMMARY | 2023-07-08 08:16 | External Medical Summary ---
Author Name Unknown Address Unknown Organization K01:LABORATORY [facility] - [address] [place] [address] Laboratory Report Ordering Provider Test Date Status TRUMAN LIGHT V 06/20/2023 13:27:44 Final Warfarin Therapy
INR: 2 .0-3.0 conventional anticoagulation
INR: 2.5- 3.5 high intensity anticoagulation Observation Date Value Abnormality Reference (Units ) Status PT 06/20/2023 13:27:44 >70.0 Above high normal 11 .6-15.2 (seconds) Final Results rechecked. INR 06/20/2023 13:27:44 >9.0 Above upper panic li mits 0.8-1.2 Final Results rechecked. Performing Location LABORATORY [facility] - [address] [place] [address]
--- OUTSIDE RECORDS SUMMARY | 2023-07-08 08:16 | External Medical Summary | Summary of Care ---
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 Pernicious anemia 08/03/2008 CORONARY ATHEROSCLER. OF [place] CORONARY VESSEL 08/28/2006 S/P AORTIC VALVE REPLACEMENT-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 oysterman current use of anticoagulant therapy 1 08/04/2002 [...] Description 06/20/2023 5:30 PM EST Anticoagulation Pharmacy, [facility] 200 [place] [address] Pharmacist1, [facility] 200 [facility] [place] [address] S/P AORTIC VALVE REPLACEMENT-[place]* 07/02/2023 9:15 AM EST Imaging Radiology [facility] [address] [place] [address] 07/05/2023 9:30 AM EST Laboratory Lab Mobile Phlebotomy [facility] [address] [place] [address] [facility], [facility] Mobile Home Draw [address] [place] [address] 07/19/2023 9:30 AM EST Laboratory Lab Mobile Phlebotomy [facility] [address] [place] [address] [facility], [facility] Mobile Home Draw [address] [place] [address] 08/02/2023 9:30 AM EST Laboratory Lab Mobile Phlebotomy [facility] [address] [place], [place] [address] [facility], [facility] Mobile Home Draw [address] [place] [address] 08/16/2023 9:30 AM EST Laboratory Lab Mobile Phlebotomy [facility] [address] [place] [address] [facility], [facility] Mobile Home Draw [address] [place] [address] 08/16/2023 10:00 AM EST Imaging Radiology [address] [facility] [place] [address] 08/30/2023 9:30 AM EDT Laboratory Lab Mobile Phlebotomy [facility] [address] [place] [address] [facility], [facility] Mobile Home Draw [address] [place] [address] 10/03/2023 10:40 AM EDT Office Visit General Internal Medicine [facility] [address] [place] [address] Sourav Verde MD [address] [place] [address] Pending Results Name Type Priority Associated Diagnoses Date /Time BASIC METABOLIC PANEL Lab Routine Elevated alkaline phosphatase level 06/20/2023 1:27 PM EST PT INR Lab Routine S/P aortic valve replacement Anticoagulation management encounter [facility] current use of anticoagulant therapy 06/20/2023 1:27 [...] Additional history exists CKD PHOS USE SMARTSET 34040 09/22/2023 04/0 11/2022, 09/01/2021, 08/18/2020, Additional history exists HbA1c 09/26/2023 03/27/2023, 04/0 11/2022, 03/10/2022, Additional history exists GFR 11/15/2023 05/17/2023, 03/18, 09/04/2022, Additional history exists Diabetic Eye Exam 01/17/2024 01/16/2023, , 09/04/2022, Additional history exists Depression Screening 03/27/2024 03/27/2023 CKD HGB USE SMARTSET 18371 05/17/202405/17, 05/17/2023, 03/27/2023, Additional history exists Pneumococcal [...] management encounter Encounter for therapeutic drug monitoring oysterman current use of anticoagulant therapy documented in this encounter Care Teams Grocery Clerk Relationship Specialty Start Date End Date Sourav Verde MD [address] [place], [place] [address] PCP - General Internal Medicine 02/28/21 documented as of this encounter
--- OUTSIDE RECORDS SUMMARY | 2023-07-08 08:16 | External Medical Summary ---
Author Name Unknown Address Unknown Organization [id number]:[facility] [place] - [facility] [address] [place] [address] Laboratory Report Ordering Provider Test Date Status DO ELAINACATHERINE 06/20/2023 13:27:01 Final Observation Date Value Abnormality Reference (Units ) Status BUN 06/20/2023 13:27:01 42 Above high normal 6-20 (mg/dL) Final Creatinine 06/20/2023 13:27:01 1.0 0.6-1.2 (mg/dL) Final Glomerular filtration rate/1.73 sq M.predicted [Volume Rate/Area] in Serum, Plasma or Blood by Creatinine-based formula (CKD-EPI) 06/20/2023 13:27:01 76 >=60 (mL/min) Final eGFR is calculated based on the CKD-EPI 2020 equation SODIUM 06/20/2023 13:27:01 140 135-146 (m mol/L) Final Potassium 06/20/2023 13:27:01 4.7 3.5-5.1 (m mol/L) Final Cl 06/20/2023 13:27:01 102 98-107 (mm ol/L) Final CO2 06/20/2023 13:27:01 28 22-32 (mmo l/L) Final Anion gap 06/20/2023 13:27:01 10 7-15 (mmol /L) Final Glucose 06/20/2023 13:27:01 192 Above high normal 70 -120 (mg/dL) Final Calcium 06/20/2023 13:27:01 9.4 8.4-10.2 ( mg/dL) Final Performing Location [facility] [place] - [address] [place] [address]
--- OUTSIDE RECORDS SUMMARY | 2023-07-08 08:16 | External Medical Summary | Summary of Care ---
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 Pernicious anemia 08/03/2008 CORONARY ATHEROSCLER. 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 [place] [place] [address] Pharmacist1, [facility] [address] [facility] [place] [address] S/P AORTIC VALVE REPLACEMENT-[place] [facility]* 06/21/2023 5:10 PM EST Anticoagulation Pharmacy, [address] [address] [facility] [address] [place] [address] 07/02/2023 9:15 AM EST Imaging Radiology [facility] [address] [place] [address] 07/05/2023 9:30 AM EST Laboratory Lab Mobile Phlebotomy [facility] [address] [place] [address] [facility] Mobile Home Draw [address] [place] [address] 07/19/2023 9:30 AM EST Laboratory Lab Mobile Phlebotomy [facility] [address] [place] [address] [facility] Home Draw [address] [place] [address] 08/02/2023 9:30 AM EST Laboratory Lab Mobile Phlebotomy [facility] [address] [place] [address] [facility] Draw [address] [place] [address] 08/16/2023 9:30 AM EST Laboratory Lab Mobile Phlebotomy [facility] [address] [place] [address] [facility] Mobile Home Draw [address] [place] [address] 08/16/2023 10:00 AM EST Imaging Radiology [address], [place] [address] [place] [address] 08/30/2023 9:30 AM EDT Laboratory Lab Mobile Phlebotomy [facility] [address] [place] [address] [facility] Mobile Home Draw [address] [place] [address] 10/03/2023 10:40 AM EDT Office Visit General Internal Medicine [facility] [address] [place] [address] Sourav Verde MD [address] [place] [address] Pending Results Name Type Priority Associated Diagnoses Date /Time BASIC METABOLIC PANEL Lab Routine Elevated alkaline phosphatase level 06/20/2023 1:27 PM EST PT INR Lab Routine S/P aortic valve replacement Anticoagulation management encounter 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 06/20/2023 1:27 [...] Additional history exists CKD PHOS USE SMARTSET 28783 09/22/2023 04/0 11/2022, 09/01/2021, 08/18/2020, Additional history exists HbA1c 09/26/2023 03/27/2023, 04/0 11/2022, 03/10/2022, Additional history exists GFR 11/15/2023 05/17/2023, 03/18, 09/04/2022, Additional history exists Diabetic Eye Exam 01/17/2024 01/16/2023, , 09/04/2022, Additional history exists Depression Screening 03/27/2024 03/27/2023 CKD HGB USE SMARTSET 93317 05/17/202405/17, 05/17/2023, 03/27/2023, Additional history exists Pneumococcal [...] management encounter Encounter for therapeutic drug monitoring 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
--- OUTSIDE RECORDS SUMMARY | 2023-07-08 08:16 | External Medical Summary | Summary of Care ---
Author Name Unknown Organization [facility] Address [address] [place] [address] Phone [phone] Care Team Providers Care Digital Photographer Name Role Phone Sourav Verde MD Primary Care Provider + Reason for Visit * Reason Comments Dosage Adjustment Via Phone (anticoag Cl inic) Encounter Details Date Type Department Care Team (Latest Contact Info) Description 06/20/2023 5:30 PM EST Anticoagulation Pharmacy, [facility] [address] [place] [address] Pharmacist1, [facility] [address] [facility] [place] [address] S/P AORTIC VALVE REPLACEMENT-[place] [facility]* Allergies Active [...] goal of less than 7.0% ([facility]) INJECT 15 UNITS SUBCUTANEOUSLY WITH [...] Taxonomy. Pernicious anemia 08/03/2008 CORONARY ATHEROSCLER. OF [place] CORONARY VESSEL 08/28/2006 S/P AORTIC VALVE REPLACEMENT-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 Patient is going to ER due to lung sounds and fluid retention in legs. He became out of breath after standing while nurse from [facility] there. I will check for admission later today. Waylon instructed to hold Coumadin today if patient returns to home. I will follow up tomorrow. Perico Llamas. Dell Mancini, CACP, CDE Clinical Pharmacist [facility] 06/20/2023, 1:46 PM * Paula Santizo disease education specialist - 06/20/2023 12:23 PM EST [facility] nurse Jessica calling in today's INR >8.0, she also did a venipuncture and will take thespecimen to our [place] clinic for drop off. Paula Santizo MA Body Trimmer Upholsterer I [facility] (formerly [facility]) documented in this encounter Plan of Treatment Upcoming Encounters Date Type Department Care Team (Late st Contact Info) Description 06/21/2023 5:10 PM EST [facility]tico[facility] Pharm[facility], [place] [address] [facility] [address] [facility] [address] [place] [address] 07/02/2023 9:15 AM EST Imaging Radiology [facility] [address] [facility] [place] [address] 07/05/2023 9:30 AM EST Laboratory Lab [facility] [id number] [facility] Draw [address] [place] [address] 07/19/2023 9:30 AM EST Laboratory Lab [facility] [address] [place] [address] [facility] [address] [place] [address] 08/02/2023 9:30 AM EST Laboratory Lab [facility] [address] [place] [address] [facility], [facility] Mobile Home Draw [address] [place] [address] 08/16/2023 9:30 AM EST Laboratory Lab [facility] [address] [place] [address] [facility] [address] [place] [address] 08/16/2023 10:00 AM EST Imaging Radiology [address] [place] [address] 08/30/2023 9:30 AM EDT Laboratory Lab Mobile [facility] [address] [place] [address] [facility] [address] [place] [address] 10/03/2023 10:40 AM EDT Office Visit General Internal Medicine [facility] [place] [address] [place] [address] Sourav Verde MD [address] [place] [address] Health Maintenance Due Date Last Done Comments [...] Additional history exists CKD PHOS USE SMARTSET 38877 09/22/2023 04/0 11/2022, 09/01/2021, 08/18/2020, Additional history exists HbA1c 09/26/2023 03/27/2023, 04/0 11/2022, 03/10/2022, Additional history exists GFR 11/15/2023 05/17/2023, 03/18, 09/04/2022, Additional history exists Diabetic Eye Exam 01/17/2024 01/16/2023, , 09/04/2022, Additional history exists Depression Screening 03/27/2024 03/27/2023 CKD HGB USE SMARTSET 02520 05/17/202405/17, 05/17/2023, 03/27/2023, Additional history exists Pneumococcal [...] Date/Time Associated Diagnosis Comments OUTSIDE LAB-PT/INR Routine 06/20/2023 documented in this encounter Results * OUTSIDE LAB-PT/INR (06/20/2023) INR-OUTSIDE LAB >8.0 History Per Patient LABORATORY documented in this encounter Visit Diagnoses Diagnosis S/P AORTIC VALVE REPLACEMENT-[place]- Primary Heart valve replaced by other means documented in this encounter Care Teams Digital Photographer Relationship Specialty Start Date End Date Sourav Verde MD [address] [place] [address] PCP - General Internal Medicine 02/28/21 documented as of this encounter
--- NOTE | 2023-07-08 08:36 | Emergency Department Note ---
Impression & Plan CHF exacerbation, Breathlessness, Elevated lactic acid level, Elevated troponin I level ED Provider Note Provider: Alex Hutchinson MD DATE OF SERVICE: 07/08/2023 CHIEF COMPLAINT: Shortness of breath, some abdominal pain earlier HISTORY OF PRESENT ILLNESS: Patient is a 83-year-old gentleman past medical history of type 2 diabetes, DVT on Coumadin, heart failure, A-fib, recent COVID- 19 presenting here today via ambulance from his home. Patient states overnight he began develop increasing shortness of breath. Reports he had some abdominal pain diffusely earlier but this is resolved. No nausea vomiting or diarrhea reported. States he has noted some increased welling of his legs. States compliance of medications but did not take them at this morning or anything to eat. Denies falls or syncope. Denies chest pain. Reports EMS gave him some oxygen and his breathing is a little bit better now. Denies significant runny nose or sore throat. At home with son providing assistance with care. Denies significant salt intake newly. PAST MEDICAL HISTORY: As noted above MEDICATIONS: Reviewed home medications includes Coumadin SOCIAL HISTORY: Non-smoker, lives at home with assistance of son PHYSICAL EXAM: GENERAL: alert and oriented on stretcher fatigued in appearance Head: normocephalic and atraumatic EYES: No injection or icterus; a trace amount of slight discharge from the right eye with some crusting of the eyelashes whitish in color. PERRL, EOMI. NECK: Trachea midline. Supple. ENT: Mucous membranes pink and moist. LUNGS: Airway patent. No retractions. Breath sounds clear with good air entry bilaterally. HEART: Regular rate and rhythm. No chest wall tenderness ABDOMEN: Soft and non-tender, without guarding or rebound. SKIN: Acyanotic, warm, dry, without rashes EXTREMITIES: lower extremities compression stockings placed but 3-4+ edema diffusely swollen. NEUROLOGICAL: No focal deficits moving all extremities. No aphasia, facial droop, or slurred speech. Tongue midline. Following commands. EK bpm atrial fibrillation without acute ST segment elevation with some nonspecific a inferior lateral ST depression/T wave inversion. QTc 44. CONTINUOUS CARDIAC MONITORING: was ordered and showed a heart rate of 80s to 90 bpm in atrial fibrillation Patient's laboratory studies and imaging reviewed. Differential includes CHF/fluid overload, pneumonia, infection, dehydration, metabolic abnormality, hypo/hyperglycemia, electrolyte disturbance, anemia, hypoxia, cardiac sources, gastrointestinal issue such as perforation, diverticulitis, cholecystitis, appendicitis, gastritis, gastroenteritis, volvulus among others as well as other pathologies. IMPRESSION/MEDICAL DECISION MAKING: Patient quite fatigued in appearance. Not hypoxic you are placed on some oxygen by nursing for comfort initially. Diffusely swollen lower extremities. Reviewed recent hospitalization and discharge summaries from 2 weeks ago here. Was treated for fluid overload as well as possible pneumonia and COVID-19. Repeat respiratory viral panel testing sent. Abdominal pain earlier but not significantly now not that tender. Given his multiple comorbidities however, we will investigate with an abdominal CT. Will complete a CT of the chest for full differentiation of the lung parenchyma while over there. INR basic labs checked as well as BNP and procalcitonin to elucidate whether the patient suffering from possible infectious etiology versus fluid overload versus other occult intra- abdominal process. Not having active chest pain and lower suspicion for acute ACS/HI. EKG was obtained. Will initially give some Lasix as the patient does appear fluid overloaded on clinical exam and he relates increased swelling. Blood work today with increased leukocytosis 12.49. No anemia. Normal platelet count. Chemistries without significant electrolyte abnormality notable for mildly elevated BUN of 62 and creatinine 1.3 from baseline around 0.8. Again seems grossly fluid overloaded. Troponin elevated 58 today elevated from a normal baseline again question this more fluid overload. Lactate does return elevated at 5. Not hypotensive and again I believe this is likely more from significant fluid overload. Not noted to be tachycardic. BNP is elevated today. Procalcitonin not significantly elevated and this leans against a significant sepsis picture. VBG without significant hypercarbia or acidosis. INR is elevated 5.2. Still maintains a COVID-positive status. CT imaging of the chest and abdomen pelvis per radiology shows some mild pulmonary edema and stable lung nodules. Incidental spleen infarct is noted today. Again INR elevated currently. Discussed with patient and family and the hospitalist team for further care here at the hospital. Given the patient's fluid overloaded status did not provide additional IV fluid and lower suspicion for bacterial sepsis picture at this time. Patient requested Harper catheter which will be placed to help with managing his urination with diuresis. DIAGNOSIS: Shortness of breath, CHF exacerbation, elevated lactate, elevated troponin DISPOSITION: Hospitalist will evaluate Patient was agreeable with this plan. 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 Required: No Beliefs That Will Affect Care: None Current Living Situation: Family Current Living Situation Comment: Lives with jennifer Dixon Feels Safe at Home: Yes Assistive Devices: Cane and Walker Allergies Allergies Allergy/AdvReac Type Severity Reaction Status Date / Time niacin Allergy Intermediate HIVES Verified 04/21/23 09:30 Home Meds Home Medications Medication Instructions Recorded Confirmed nitroglycerin 0.4 mg sublingual 0.4 mg sublingual PRN PRN Chest 12/09/09 06/20/23 tablet (Nitrostat) Pain ##0 travoprost 0.004 % eye drops 1 drp OPB HS #1 btl 10/13/15 06/20/23 allopurinol 100 mg tablet 200 mg PO Q2D 04/21/23 07/08/23 aspirin 81 mg chewable tablet 81 mg PO .SUN/SUN/Sun04/21/23 07/08/23 brimonidine 0.2 % eye drops 1 drp OPL BID 04/21/23 06/20/23 dorzolamide-timolol (PF) 2 %-0.5 % 1 drp OPL BID 04/21/23 06/20/23 eye drops in a dropperette furosemide 40 mg tablet 40 mg PO BID17 04/21/23 07/08/23 insulin aspart U-100 100 unit/mL See Rx Instructions .Route .COMPLEX 04/21/23 07/08/23 subcutaneous solution (Novolog U-100 Insulin aspart) insulin detemir U-100 100 unit/mL 10 unit subcut HS 04/21/23 07/08/23 subcutaneous solution (Levemir U-100 Insulin) metformin 1,000 mg tablet 1,000 mg PO BID 04/21/23 07/08/23 magnesium oxide 400 mg (241.3 mg 400 mg PO BID 06/20/23 07/08/23 magnesium) tablet metoprolol succinate 100 mg 100 mg PO BID 06/20/23 07/08/23 tablet,extended release 24 hr spironolactone 25 mg tablet 12.5 mg PO DAILY 06/20/23 07/08/23 warfarin 4 mg tablet 2 mg PO DAILY 07/08/23 07/08/23 Previous Rx's Medication Instructions Recorded tramadol 50 mg tablet 50 mg PO Q4H PRN pain #10 tabs 05/27/23 prednisone 10 mg tablet See Taper PO DIRECTED #94 tabs 06/24/23 Results & Data (ED) Vital Signs Vital Signs - 24 hr 07/08/23 08:29 07/08/23 08:32 07/08/23 08:45 Temperature 36.5 C Temperature Source Oral Pulse Rate 91 H 79 Pulse Rate from SpO2 Sensor Respiratory Rate 22 Respiratory Effort / Characteristics Short of Breath Short of Breath Respiratory Depth Normal Normal Respiratory Pattern Regular Regular Blood Pressure 117/68 Blood Pressure Mean 84 Pulse Oximetry 98 Oxygen Delivery Method Room Air Nasal Cannula Oxygen Flow Rate 4 Sepsis Recent Fever Within 48 Hours No Sepsis New/Unexplained Change in Mental Status No Sepsis Action Taken by Nursing No Action Required 07/08/23 09:00 07/08/23 10:31 07/08/23 11:00 Temperature Temperature Source Pulse Rate 90 99 H 94 H Pulse Rate from SpO2 Sensor 89 Respiratory Rate 20 22 28 H Respiratory Effort / Characteristics Respiratory Depth Respiratory Pattern Blood Pressure 112/71 94/58 L 121/73 Blood Pressure Mean 84 70 89 Pulse Oximetry 98 92 Oxygen Delivery Method Nasal Cannula Oxygen Flow Rate 4 94 Sepsis Recent Fever Within 48 Hours Sepsis New/Unexplained Change in Mental Status Sepsis Action Taken by Nursing Laboratory Data 07/08/23 08:26 07/08/23 08:26 Lab Results 07/08/23 07/08/23 07/08/23 Range/Units 08:20 08:26 09:12 WBC 12.49 H (4.8-10.8) K/ul RBC 5.30 (4.70-6.10) M/uL Hgb 14.7 (14.0-18.0) g/dl Hct 47.7 (42.0-52.0) % MCV 90.0 (80.0-100.0) fL MCH 27.7 (25.0-34.0) pg MCHC 30.8 L (32.0-36.0) g/dL RDW Std Deviation 63.6 H (36.4-46.3) fL RDW Coeff of Radha 19.6 H (11.5-14.5) % Plt Count 157 (130-400) K/uL MPV 11.8 (9.4-12.4) fL Immature Gran % (Auto) 0.5 % Neut % (Auto) 82.3 % Lymph % (Auto) 9.1 % [place] % (Auto) 7.7 % Eos % (Auto) 0.3 % Baso % (Auto) 0.1 % Neut # (Auto) 10.28 H (1.40-6.50) K/uL Lymph # (Auto) 1.14 L (1.20-3.40) K/uL [place] # (Auto) 0.96 H (0.11-0.59) K/uL Eos # (Auto) 0.04 (0.00-0.50) K/uL Baso # (Auto) 0.01 (0.00-0.20) K/uL Immature Gran # (Auto) 0.06 (0.01-0.20) K/uL PT 51.1 H (9.0-12.0) Seconds INR 5.2 H (0.9-1.1) APTT 38 H (21-31) Seconds PTT Ratio 1.3 VBG pH 7.48 H (7.36-7.41) VBG pCO2 43 (38-50) mmHg VBG pO2 22 mmHg VBG HCO3 32 mmol/L VBG O2 Saturation < 60.0 % VBG Base Excess 7.6 mEq/L Sodium 142 (136-145) mmol/L Potassium 4.2 (3.5-5.1) mmol/L Chloride 101 (98-107) mmol/L Carbon Dioxide 31 (21-32) mmol/L Anion Gap 10 (3-11) BUN 62 H (6-23) mg/dl Creatinine 1.30 (0.6-1.4) mg/dl Est Cr Clr Drug Dosing Not Reportable Est GFR ( Amer) 58.1 ml/min Est GFR (Non-Af Amer) 50.1 ml/min BUN/Creatinine Ratio 47.7 H (10-20) Glucose 86 (70-99(Fasting)) mg/dl Lactate 5.1 H* (0.4-2.0) mmol/L Calcium 10.6 H (8.6-10.3) mg/dl Magnesium 1.8 (1.7-2.4) mg/dl Total Bilirubin 0.9 (0.2-1.0) mg/dl AST 19 (13-39) U/L ALT 23 (7-52) U/L Alkaline Phosphatase 87 (34-104) U/L Troponin I High Sens 58.2 H* (0-20) pg/ml B-Natriuretic Peptide 368 H (0-100) pg/ml Total Protein 6.7 (6.0-8.3) gm/dl Albumin 3.5 (3.4-5.0) gm/dl Globulin 3.2 (2.5-4.0) gm/dl Albumin/Globulin Ratio 1.1 (0.9-2) Procalcitonin 0.06 (0-0.5) ng/ml Urine Color Urine Appearance (Clear) Urine pH (4.5-7.5) Ur Specific [place] (1.000-1.030) Urine Protein (Negative) Urine Glucose (UA) (Negative) Urine Ketones (Negative) Urine Blood (Negative) Urine Nitrite (Negative) Urine Bilirubin (Negative) Urine Urobilinogen (Negative) Ur Leukocyte Esterase (Negative) Urine WBC (Auto) (0-5) /hpf Urine RBC (Auto) (0-4) /hpf U Hyaline Cast (Auto) (0-5) /lpf U Epithel Cells (Auto) (0-5) /lpf Urine Bacteria (Auto) (Negative) Adenovirus (PCR) Not Detected (NotDetected) B. pertussis DNA (PCR) Not Detected (NotDetected) B.parapertussis DNA PCR Not Detected (NotDetected) C. pneumoniae DNA (PCR) Not Detected (NotDetected) Coronavirus OC43 (PCR) Not Detected (NotDetected) Coronavirus HKU1 (PCR) Not Detected (NotDetected) Coronavirus 229E (PCR) Not Detected (NotDetected) SARS-CoV-2 (PCR) DETECTED A* (NotDetected) Coronavirus NL63 (PCR) Not Detected (NotDetected) Human Metapneumovir PCR Not Detected (NotDetected) Influenza Type A (PCR) Not Detected (NotDetected) Influenza Type B (PCR) Not Detected (NotDetected) M. pneumoniae (PCR) Not Detected (NotDetected) Parainfluenza 1 (PCR) Not Detected (NotDetected) Parainfluenza 2 (PCR) Not Detected (NotDetected) Parainfluenza 3 (PCR) Not Detected (NotDetected) Parainfluenza 4 (PCR) Not Detected (NotDetected) RSV (PCR) Not Detected (NotDetected) Entero/Rhino (PCR) Not Detected (NotDetected) 07/08/23 07/08/23 07/08/23 Range/Units 10:22 11:00 11:28 WBC (4.8-10.8) K/ul RBC (4.70-6.10) M/uL Hgb (14.0-18.0) g/dl Hct (42.0-52.0) % MCV (80.0-100.0) fL MCH (25.0-34.0) pg MCHC (32.0-36.0) g/dL RDW Std Deviation (36.4-46.3) fL RDW Coeff of Radha (11.5-14.5) % Plt Count (130-400) K/uL MPV (9.4-12.4) fL Immature Gran % (Auto) % Neut % (Auto) % Lymph % (Auto) % [place] % (Auto) % Eos % (Auto) % Baso % (Auto) % Neut # (Auto) (1.40-6.50) K/uL Lymph # (Auto) (1.20-3.40) K/uL [place] # (Auto) (0.11-0.59) K/uL Eos # (Auto) (0.00-0.50) K/uL Baso # (Auto) (0.00-0.20) K/uL Immature Gran # (Auto) (0.01-0.20) K/uL PT (9.0-12.0) Seconds INR (0.9-1.1) APTT (21-31) Seconds PTT Ratio VBG pH (7.36-7.41) VBG pCO2 (38-50) mmHg VBG pO2 mmHg VBG HCO3 mmol/L VBG O2 Saturation % VBG Base Excess mEq/L Sodium (136-145) mmol/L Potassium (3.5-5.1) mmol/L Chloride (98-107) mmol/L Carbon Dioxide (21-32) mmol/L Anion Gap (3-11) BUN (6-23) mg/dl Creatinine (0.6-1.4) mg/dl Est Cr Clr Drug Dosing Est GFR ( Amer) ml/min Est GFR (Non-Af Amer) ml/min BUN/Creatinine Ratio (10-20) Glucose (70-99(Fasting)) mg/dl Lactate 3.6 H* (0.4-2.0) mmol/L Calcium (8.6-10.3) mg/dl Magnesium (1.7-2.4) mg/dl Total Bilirubin (0.2-1.0) mg/dl AST (13-39) U/L ALT (7-52) U/L Alkaline Phosphatase (34-104) U/L Troponin I High Sens 63.0 H* (0-20) pg/ml B-Natriuretic Peptide (0-100) pg/ml Total Protein (6.0-8.3) gm/dl Albumin (3.4-5.0) gm/dl Globulin (2.5-4.0) gm/dl Albumin/Globulin Ratio (0.9-2) Procalcitonin (0-0.5) ng/ml Urine Color Yellow Urine Appearance Clear (Clear) Urine pH 8.5 H (4.5-7.5) Ur Specific [place] 1.014 (1.000-1.030) Urine Protein Trace H (Negative) Urine Glucose (UA) Negative (Negative) Urine Ketones Negative (Negative) Urine Blood Negative (Negative) Urine Nitrite Negative (Negative) Urine Bilirubin Negative (Negative) Urine Urobilinogen Negative (Negative) Ur Leukocyte Esterase Negative (Negative) Urine WBC (Auto) 0 (0-5) /hpf Urine RBC (Auto) 0-4 (0-4) /hpf U Hyaline Cast (Auto) 1-5 (0-5) /lpf U Epithel Cells (Auto) 5-10 H (0-5) /lpf Urine Bacteria (Auto) Negative (Negative) Adenovirus (PCR) (NotDetected) B. pertussis DNA (PCR) (NotDetected) B.parapertussis DNA PCR (NotDetected) C. pneumoniae DNA (PCR) (NotDetected) Coronavirus OC43 (PCR) (NotDetected) Coronavirus HKU1 (PCR) (NotDetected) Coronavirus 229E (PCR) (NotDetected) SARS-CoV-2 (PCR) (NotDetected) Coronavirus NL63 (PCR) (NotDetected) Human Metapneumovir PCR (NotDetected) Influenza Type A (PCR) (NotDetected) Influenza Type B (PCR) (NotDetected) M. pneumoniae (PCR) (NotDetected) Parainfluenza 1 (PCR) (NotDetected) Parainfluenza 2 (PCR) (NotDetected) Parainfluenza 3 (PCR) (NotDetected) Parainfluenza 4 (PCR) (NotDetected) RSV (PCR) (NotDetected) Entero/Rhino (PCR) (NotDetected) Administered Medications Discontinued Medications Furosemide (Furosemide 40 Mg/4 Ml Vial) 40 mg IV ONE ONE Stop: 07/08/23 08:32 Last Admin: 07/08/23 11:44 Dose: 40 mg Documented By: SUNIL Furosemide (Furosemide 40 Mg/4 Ml Vial) Confirm Administered Dose 40 mg IV .[facility] Stop: 07/08/23 11:44 Last Admin: 07/08/23 11:45 Dose: Not Given Documented By: MT Imaging Data Radiologist's Impression: Chest CT 07/08/23 08:29 CT OF THE CHEST WITHOUT IV CONTRAST CLINICAL HISTORY: sob, ?CHF COMPARISON STUDY: Chest CT April 21, 2023. Chest radiograph June 20, 2023. TECHNIQUE: Axial images of the chest were obtained without IV contrast. Images were reviewed in the axial, sagittal, and coronal planes. IV contrast was not administered for this examination. Automated exposure control was utilized for the study. A dose lowering technique was utilized adhering to the principles of ALARA. FINDINGS: No enlarged axillary, mediastinal or hilar lymph nodes are present. Multiple thyroid nodules are similar to prior CT. There is mild cardiomegaly and extensive coronary artery calcification. Extensive mitral annular calcification is noted. There is a prosthetic aortic valve. There is no pericardial effusion. No pneumothorax or pleural effusion is present. Multiple solid noncalcified pulmonary nodules are unchanged since chest CT of April 21, 2023. The largest is a 7 mm left upper lobe nodule on image 51 of 249. There are mild groundglass opacities with mosaic attenuation within the lungs. Subtle interlobular septal thickening is present. There are patchy lower lung airspace opacities. No confluent consolidation. No central obstructing mass is present. Abdomen and pelvis CT will be reported separately. IMPRESSION: 1. Subtle groundglass opacities and interlobular septal thickening. The findings favor a mild pulmonary edema. 2. Mild lower lung scattered opacities which could reflect atelectasis, scarring or a superimposed infectious process. 3. No change in multiple pulmonary nodules since chest CT of April 21, 2023. These remain indeterminate. A chest CT in 6 months to ensure continued stability is recommended. ACT 112: Negative or not required by law. Electronically signed by: Anurag Pandey M.D. 07/08/2023 10:08 AM Abdomen/Pelvis CT 07/08/23 08:48 CT OF THE ABDOMEN AND PELVIS WITHOUT CONTRAST CLINICAL HISTORY: mild diffuse pain, sob, swelling COMPARISON STUDY: CT of the abdomen and pelvis April 22, 2023. TECHNIQUE: Axial images of the abdomen and pelvis were obtained without IV contrast. Images were reviewed in the axial, sagittal, and coronal planes. Automated exposure control was utilized for the study. A dose lowering technique was utilized adhering to the principles of ALARA. FINDINGS: Please note that the chest CT will be reported separately. No pneumatosis, free air or portal venous gas is present. No renal, ureteral or bladder calculi are present. There is no hydronephrosis. Evaluation of the remainder of the abdomen and pelvis is suboptimal on this unenhanced exam. There is no biliary ductal dilatation status post cholecystectomy. There is bilateral gynecomastia. Liver, adrenal glands and pancreas are unremarkable. A 4.3 x 2.2 cm hypodense focus within the superior aspect of the spleen is new since prior CT. There is no evidence for a bowel obstruction. There is a moderate amount stool within the rectum. No bowel wall thickening is identified on unenhanced exam. The appendix is normal. There is no lymphadenopathy. IVC filter is in place. Right hip arthroplasty is intact. No acute fractures within the visualized skeletal structures are present. Water attenuation left renal lesion favors a cyst. IMPRESSION: 1. 4.3 x 2.2 cm hypodense focus within the spleen. This represents an age indeterminate splenic infarct however is new since CT of April 22, 2023. 2. No urinary calculi. No hydronephrosis. 3. No bowel obstruction. ACT 112: Negative or not required by law. Electronically signed by: Anurag Pandey M.D. 07/08/2023 10:18 AM Discharge Plan Visit Data Chief Complaint: Shortness of Breath/Dyspnea Stated Complaint: AB PAIN, SOB ED Provider: Alex Hutchinson Discharge Problem: CHF exacerbation, Breathlessness, Elevated lactic acid level, Elevated troponin I level Patient Disposition: Admitted As Inpatient Discharge Instructions Interventions: ED Discharge Assessment Last Done: 07/08/23 14:02 Discharge Problem: CHF exacerbation Qualifiers: Heart failure type: diastolic Qualified Code(s): I50.33 - Acute on chronic diastolic (congestive) heart failure
[2023-07-08 08:48] LABS: Basophils # (auto) 0.01 K/uL (0.00-0.20); Basophils % (auto) 0.1 %; Eosinophils # (auto) 0.04 K/uL (0.00-0.50); Eosinophils % (auto) 0.3 %; Hematocrit (blood only) 47.7 % (42.0-52.0); Hemoglobin 14.7 g/dl (14.0-18.0); Immature Granulocytes # (auto) 0.06 K/uL (0.01-0.20); Immature Granulocytes % (auto) 0.5 %; Lymphocytes # (auto) 1.14 K/uL (1.20-3.40); Lymphocytes % (auto) 9.1 %; Mean Corpuscular Hemoglobin 27.7 pg (25.0-34.0); Mean Corpuscular Hgb Conc 30.8 g/dL (32.0-36.0); Mean Platelet Volume 11.8 fL (9.4-12.4); Monocytes # (auto) 0.96 K/uL (0.11-0.59); Monocytes % (auto) 7.7 %; Neutrophils # (auto) 10.28 K/uL (1.40-6.50); Neutrophils % (auto) 82.3 %; Platelet Count 157 K/uL (130-400); RDW Coefficient of Variation 19.6 % (11.5-14.5); RDW Standard Deviation 63.6 fL (36.4-46.3); White Blood Count 12.49 K/ul (4.8-10.8)
[2023-07-08 09:06] LABS: Alanine Aminotransferase 23 U/L (7-52); Albumin Globulin Ratio 1.1 (0.9-2); Albumin Level 3.5 gm/dl (3.4-5.0); Alkaline Phosphatase 87 U/L (34-104); Anion Gap 10 (3-11); Aspartate Aminotransferase 19 U/L (13-39); BUN Creatinine Ratio 47.7 (10-20); Bilirubin,Total 0.9 mg/dl (0.2-1.0); Blood Urea Nitrogen 62 mg/dl (6-23); Calcium 10.6 mg/dl (8.6-10.3); Carbon Dioxide 31 mmol/L (21-32); Chloride 101 mmol/L (98-107); Est GFR (African American) 58.1 ml/min; Est GFR (Non-African American) 50.1 ml/min; Globulin 3.2 gm/dl (2.5-4.0); Glucose 86 mg/dl (70-99(Fasting)); Magnesium 1.8 mg/dl (1.7-2.4); Potassium 4.2 mmol/L (3.5-5.1); Sodium 142 mmol/L (136-145); Total Protein 6.7 gm/dl (6.0-8.3)
[2023-07-08 09:16] LABS: Troponin I High Sensitivity 58.2 pg/ml (0-20)
[2023-07-08 09:20] LABS: Base Excess VBG 7.6 mEq/L; HCO3 VBG 32 mmol/L; Oxygen Saturation VBG < 60.0 %; PCO2 VBG 43 mmHg (38-50); PO2 VBG 22 mmHg; pH VBG 7.48 (7.36-7.41)
[2023-07-08 09:37] LABS: INR 5.2 (0.9-1.1); Partial Thromboplastin Ratio 1.3; Partial Thromboplastin Time 38 Seconds (21-31); Prothrombin Time 51.1 Seconds (9.0-12.0)
[2023-07-08 09:40] LABS: Adenovirus PCR Not Detected (NotDetected); Bordetella parapertussis PCR Not Detected (NotDetected); Bordetella pertussis PCR Not Detected (NotDetected); Chlamydia pneumoniae PCR Not Detected (NotDetected); Coronavirus 229E PCR Not Detected (NotDetected); Coronavirus HKU1 PCR Not Detected (NotDetected); Coronavirus NL63 PCR Not Detected (NotDetected); Coronavirus OC43PCR Not Detected (NotDetected); Human Metapneumovirus PCR Not Detected (NotDetected); Influenza A PCR Not Detected (NotDetected); Influenza B PCR Not Detected (NotDetected); Mycoplasma pneumoniae PCR Not Detected (NotDetected); Parainfluenza Virus 1 PCR Not Detected (NotDetected); Parainfluenza Virus 2 PCR Not Detected (NotDetected); Parainfluenza Virus 3 PCR Not Detected (NotDetected); Parainfluenza Virus 4 PCR Not Detected (NotDetected); Respiratory Syncytial VirusPCR Not Detected (NotDetected); Rhinovirus/Enterovirus PCR Not Detected (NotDetected)
[2023-07-08 09:42] LABS: Coronavirus CoV-2 (COVID19)PCR DETECTED (NotDetected)
--- NOTE | 2023-07-08 10:10 | CT Scan Report ---
CT OF THE CHEST WITHOUT IV CONTRAST CLINICAL HISTORY: sob, ?CHF COMPARISON STUDY: Chest CT April 21, 2023. Chest radiograph June 20, 2023. TECHNIQUE: Axial images of the chest were obtained without IV contrast. Images were reviewed in the axial, sagittal, and coronal planes. IV contrast was not administered for this examination. Automat ed exposure control was utilized for the study. A dose lowering technique was utilized adhering to t he principles of ALARA. FINDINGS: No enlarged axillary, mediastinal or hilar lymph nodes are present. Multiple thyroid nodul es are similar to prior CT. There is mild cardiomegaly and extensive coronary artery calcification. E xtensive mitral annular calcification is noted. There is a prosthetic aortic valve. There is no peric ardial effusion. No pneumothorax or pleural effusion is present. Multiple solid noncalcified pulmonar y nodules are unchanged since chest CT of April 21, 2023. The largest is a 7 mm left upper lobe nod ule on image 51 of 249. There are mild groundglass opacities with mosaic attenuation within the lungs . Subtle interlobular septal thickening is present. There are patchy lower lung airspace opacities. N o confluent consolidation. No central obstructing mass is present. Abdomen and pelvis CT will be repo rted separately. IMPRESSION: 1. Subtle groundglass opacities and interlobular septal thickening. The findings favor a mild pulmona ry edema. 2. Mild lower lung scattered opacities which could reflect atelectasis, scarring or a superimposed in fectious process. 3. No change in multiple pulmonary nodules since chest CT of April 21, 2023. These remain indetermi danielle. A chest CT in 6 months to ensure continued stability is recommended. ACT 112: Negative or not required by law. Electronically signed by: Anurag Pandey M.D. 07/08/2023 10:08 AM
--- NOTE | 2023-07-08 10:20 | CT Scan Report ---
CT OF THE ABDOMEN AND PELVIS WITHOUT CONTRAST CLINICAL HISTORY: mild diffuse pain, sob, swelling COMPARISON STUDY: CT of the abdomen and pelvis April 22, 2023. TECHNIQUE: Axial images of the abdomen and pelvis were obtained without IV contrast. Images were revi ewed in the axial, sagittal, and coronal planes. Automated exposure control was utilized for the sudhakar dy. A dose lowering technique was utilized adhering to the principles of ALARA. FINDINGS: Please note that the chest CT will be reported separately. No pneumatosis, free air or port al venous gas is present. No renal, ureteral or bladder calculi are present. There is no hydronephros is. Evaluation of the remainder of the abdomen and pelvis is suboptimal on this unenhanced exam. Ther e is no biliary ductal dilatation status post cholecystectomy. There is bilateral gynecomastia. Liver , adrenal glands and pancreas are unremarkable. A 4.3 x 2.2 cm hypodense focus within the superior as pect of the spleen is new since prior CT. There is no evidence for a bowel obstruction. There is a mo derate amount stool within the rectum. No bowel wall thickening is identified on unenhanced exam. The appendix is normal. There is no lymphadenopathy. IVC filter is in place. Right hip arthroplasty is i ntact. No acute fractures within the visualized skeletal structures are present. Water attenuation le ft renal lesion favors a cyst. IMPRESSION: 1. 4.3 x 2.2 cm hypodense focus within the spleen. This represents an age indeterminate splenic infar ct however is new since CT of April 22, 2023. 2. No urinary calculi. No hydronephrosis. 3. No bowel obstruction. ACT 112: Negative or not required by law. Electronically signed by: Anurag Pandey M.D. 07/08/2023 10:18 AM
[2023-07-08] MEDS: FUROSEMIDE 40 MG/4 ML VIAL IV ONE ×2 (11:44→11:45)
[2023-07-08 12:08] LABS: Appearance Urine Clear (Clear); Bacteria Urine Automated Negative (Negative); Bilirubin Urine Negative (Negative); Blood Urine Negative (Negative); Color Urine Yellow; Glucose Urine UA Negative (Negative); Ketones Urine Negative (Negative); Leukocyte Esterase Urine Negative (Negative); Nitrite Urine Negative (Negative); RBC Urine Automated 0-4 /hpf (0-4); Specific Gravity Urine 1.014 (1.000-1.030); Urobilinogen Urine Negative (Negative); WBC Urine Automated 0 /hpf (0-5); pH Urine 8.5 (4.5-7.5)
--- NOTE | 2023-07-08 12:08 | History & Physical Report ---
Date of Service July 08, 2023 Assessment & Plan (1) CHF exacerbation: Plan: 83-year-old man with history of diabetes mellitus type 2, paroxysmal A-fib, chronic diastolic heart failure, mitral valve stenosis, aortic valvular replacement with mechanical valve on warfarin, CAD, glaucoma, hypertension, pulmonary hypertension, hyperlipidemia, ACEI nephrotoxicity, recent hospitalization 06/20/23-06/24/23 for COVID 19 pneumonia, UTI, supratherapeutic INR who presents today with shortness of breath that started overnight. CT chestnoted findings suggestive of pulmonary edema. BNP was 368 Got IV Lasix 40 mg in the ER. Will continue IV Lasix 40 mg twice daily. May need additional doses as needed. Cardiology consult Echocardiogram from 06/21/2023 noted EF of 60 to 65%, moderate concentric LVH, flattened septum consistent with RV pressure overload, severely dilated left atrium, prosthetic aortic valve, moderate to severe mitral stenosis, mild to moderate mitral regurgitation, HEART: Heart sounds are regular, no murmur or gallop or rub is heard. Tricuspid regurgitation, right ventricular systolic pressure more than 60 mmHg. (2) Elevated troponin I level: Plan: Trop is elevated 58 EKG showed AFib and nonspecific T wave changes Tele monitor Trend trop Will follow up Cardiology eval (3) Elevated lactic acid level: Plan: Elevated lactate likely due to heart failure WBC is borderline at 12K Procal is normal Low suspicion for infection at this time Lactate was 5.1 to 3.6. Trending down (4) Splenic infarct: (5) FDC current use of anticoagulant: (6) Atrial fibrillation: (7) Supratherapeutic INR: Plan: Patient has atrial fibrillation, mechanical aortic valve. Is currently rate controlled. On warfarin. Outpatient cardiology office noted INR goal was 2.5-3.5 Son reported due to recurrent epistaxis, INR goal was changed to 2.5-3. Ou tpatient anticoagulation MTM note also noted that INR goal is 2.5-3. Patient INR was 4 on 07/05/23. He was previously on warfarin 4mg on sunday and 2mg other days. He was told to hold warfarin on 07/05/23 and then continue warfarin at 2mg every day. INR today is 5.2 today No active bleeding. Hb stable Hold off warfarin for now and monitor INR daily until close to goal Patient denied abdominal pain Son also stated he did not complain of abd pain No tenderness on exam Abdominal CT noted age indeterminate splenic infarct new from 04/2023 Continue ASA 81mg MWF home dose Continue metoprolol succinate 100mg BID (8) DM2 (diabetes mellitus, type 2): Plan: Son reports patient usually eats breakfast and dinner He gives him Novolog 15U with meals with extra 1 unit for every 25 above blood glucose of 120mg as well as levemir 10U HS HbA1c 7.3 in Apr 2023 Hold home metformin Lantus 10U HS ISS Accucheck AC and HS (9) Gout: Plan: Continue home allopurinol (10) Osteoarthritis: Plan: Tylenol prn DVT ppx: Currently supratherapeutic INR. Will monitor and resume warfarin once appropriate Dispo: PCU PT/OT eval NET DEVELOPER CONSULTANT eval for reported swallowing issues Fall precautions +COVID likely from recent infection I spent a total of 75 minutes coordinating, documenting and providing care for this patient excluding time spent in performance of separately billed services History of Present Illness Chief Complaint: Shortness of breath Primary Care Provider: Sourav Verde MD 83-year-old man with history of diabetes mellitus type 2, paroxysmal A-fib, chronic diastolic heart failure, mitral valve stenosis, aortic valvular replace ment with mechanical valve on warfarin, CAD, glaucoma, hypertension, pulmonary hypertension, hyperlipidemia, ACEI nephrotoxicity, recent hospitalization 06/20/23-06/24/23 for COVID 19 pneumonia, UTI, supratherapeutic INR who presents today with shortness of breath that started overnight. History provided by patient and son who was at bedside. According to patient and son, patient has been improving since discharge from the hospital. Son reported that patient Lasix was changed to 40 mg twice daily but due to the evening dose disturbing his sleep he had been given 80 mg daily in the morning. His weight has been gradually going down was 181 pounds yesterday. Patient also reports that he had mild cough since COVID mostly dry. Reported that he started having shortness of breath overnight. Son reported that he checked his pulse oximetry which had oxygen saturation at 100, heart rate in the 80s, blood sugar 119 at home. 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 Reports some coughing with liquids but not with solids. Denied sorethroat, odynophagia. Denied chest pain, palpitation Reports dizziness on sitting and standing especially in the past day or so Denied dysuria, freq, urgency, hematuria Denied abd pain, nausea, vomiting, diarrhea, constipation, hematochezia or melena Denies smoking, alcohol or illicit drug use. Reports adherence to his medication which his son provides. He uses reading glasses and able to see his food and feed himself Per ER, he was not hypoxic. He was placed on oxygen by EMS and continued in ER for comfort Allergies Allergy/AdvReac Type Severity Reaction Status Date / Time niacin Allergy Intermediate HIVES Verified 04/21/23 09:30 Home Medications Medication Instructions Recorded Confirmed Type nitroglycerin 0.4 mg sublingual 0.4 mg sublingual PRN PRN Chest 12/09/09 06/20/23 History tablet (Nitrostat) Pain ##0 travoprost 0.004 % eye drops 1 drp OPB HS #1 btl 10/13/15 06/20/23 History allopurinol 100 mg tablet 200 mg PO Q2D 04/21/23 07/08/23 History aspirin 81 mg chewable tablet 81 mg PO .MON/SUN/Sun04/21/23 07/08/23 History brimonidine 0.2 % eye drops 1 drp OPL BID 04/21/23 06/20/23 History dorzolamide-timolol (PF) 2 %-0.5 % 1 drp OPL BID 04/21/23 06/20/23 History eye drops in a dropperette furosemide 40 mg tablet 40 mg PO BID17 04/21/23 07/08/23 History insulin aspart U-100 100 unit/mL See Rx Instructions .Route .COMPLEX 04/21/23 07/08/23 History subcutaneous solution (Novolog U-100 Insulin aspart) insulin detemir U-100 100 unit/mL 10 unit subcut HS 04/21/23 07/08/23 History subcutaneous solution (Levemir U-100 Insulin) metformin 1,000 mg tablet 1,000 mg PO BID 04/21/23 07/08/23 History tramadol 50 mg tablet 50 mg PO Q4H PRN pain #10 tabs 05/27/23 07/08/23 Rx magnesium oxide 400 mg (241.3 mg 400 mg PO BID 06/20/23 07/08/23 History magnesium) tablet metoprolol succinate 100 mg 100 mg PO BID 06/20/23 07/08/23 History tablet,extended release 24 hr spironolactone 25 mg tablet 12.5 mg PO DAILY 06/20/23 07/08/23 History prednisone 10 mg tablet See Taper PO DIRECTED #94 tabs 06/24/23 07/08/23 Rx warfarin 4 mg tablet 2 mg PO DAILY 07/08/23 07/08/23 History 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" History of hip surgery S/P cholecystectomy Social History Smoking Status: Former smoker Hx Alcohol Use: No Hx Substance Use: No Preferred Language: [place] Communication Ability: Effective Plastics Technician Required: No Beliefs That Will Affect Care: None Current Living Situation: Family Current Living Situation Comment: Lives with jennifer Dixon Feels Safe at Home: Yes Assistive Devices: Cane and Walker Review of Systems Review of Systems: All systems reviewed & are unremarkable except as noted in HPI & below Physical Exam Constitutional: + ill appearing (chronic ill looking); n o acute distress Eyes: PERRL, conjunctivae normal, anicteric sclerae ENMT: external ear and nose normal, oropharynx normal Respiratory: no respiratory distress Auscultation: + diminished lung sounds On nasal cannula Cardiovascular: Rate/Rhythm: + irregularly irregular S1 S2, mechanical clicks Gastrointestinal (Abdomen): normal bowel sounds, soft, nontender, no hepatosplenomegaly Musculoskeletal: Bilateral pitting pedal Neurologic: PERRL, EOMI, accommodation nl, no face palsy, no dysarthria Psychiatric: A+Ox3, euthymic affect Genitourinary: Harper in situ Results & Data Results & Data Vital Signs (Past 12 Hours) Vital Signs Temp Pulse Resp BP Pulse Ox O2 Del Method O2 Flow Rate 07/08/23 10:31 99 H 22 94/58 L 92 07/08/23 09:00 90 20 112/71 98 Nasal Cannula 4 07/08/23 08:45 Nasal Cannula 4 07/08/23 08:32 79 07/08/23 08:29 36.5 C 91 H 22 117/68 98 Room Air Laboratory Results Abnormal lab results 07/08/23 07/08/23 07/08/23 Range/Units 08:20 08:26 09:12 WBC 12.49 H (4.8-10.8) K/ul MCHC 30.8 L (32.0-36.0) g/dL RDW Std Deviation 63.6 H (36.4-46.3) fL RDW Coeff of Radha 19.6 H (11.5-14.5) % Neut # (Auto) 10.28 H (1.40-6.50) K/uL Lymph # (Auto) 1.14 L (1.20-3.40) K/uL [place] # (Auto) 0.96 H (0.11-0.59) K/uL PT 51.1 H (9.0-12.0) Seconds INR 5.2 H (0.9-1.1) APTT 38 H (21-31) Seconds VBG pH 7.48 H (7.36-7.41) BUN 62 H (6-23) mg/dl BUN/Creatinine Ratio 47.7 H (10-20) Lactate 5.1 H* (0.4-2.0) mmol/L Calcium 10.6 H (8.6-10.3) mg/dl Troponin I High Sens 58.2 H* (0-20) pg/ml B-Natriuretic Peptide 368 H (0-100) pg/ml Urine pH (4.5-7.5) Urine Protein (Negative) U Epithel Cells (Auto) (0-5) /lpf SARS-CoV-2 (PCR) DETECTED A* (NotDetected) 07/08/23 07/08/23 07/08/23 Range/Units 10:22 11:00 11:28 WBC (4.8-10.8) K/ul MCHC (32.0-36.0) g/dL RDW Std Deviation (36.4-46.3) fL RDW Coeff of Radha (11.5-14.5) % Neut # (Auto) (1.40-6.50) K/uL Lymph # (Auto) (1.20-3.40) K/uL [place] # (Auto) (0.11-0.59) K/uL PT (9.0-12.0) Seconds INR (0.9-1.1) APTT (21-31) Seconds VBG pH (7.36-7.41) BUN (6-23) mg/dl BUN/Creatinine Ratio (10-20) Lactate 3.6 H* (0.4-2.0) mmol/L Calcium (8.6-10.3) mg/dl Troponin I High Sens 63.0 H* (0-20) pg/ml B-Natriuretic Peptide (0-100) pg/ml Urine pH 8.5 H (4.5-7.5) Urine Protein Trace H (Negative) U Epithel Cells (Auto) 5-10 H (0-5) /lpf SARS-CoV-2 (PCR) (NotDetected) Diagnostic Findings CT OF THE CHEST WITHOUT IV CONTRAST CLINICAL HISTORY: sob, ?CHF COMPARISON STUDY: Chest CT April 21, 2023. Chest radiograph June 20, 2023. TECHNIQUE: Axial images of the chest were obtained without IV contrast. Images were reviewed in the axial, sagittal, and coronal planes. IV contrast was not administered for this examination. Automated exposure control was utilized for the study. A dose lowering technique was utilized adhering to the principles of ALARA. FINDINGS: No enlarged axillary, mediastinal or hilar lymph nodes are present. Multiple thyroid nodules are similar to prior CT. There is mild cardiomegaly and extensive coronary artery calcification. Extensive mitral annular calcification is noted. There is a prosthetic aortic valve. There is no pericardial effusion. No pneumothorax or pleural effusion is present. Multiple solid noncalcified pulmonary nodules are unchanged since chest CT of April 21, 2023. The largest is a 7 mm left upper lobe nodule on image 51 of 249. There are mild groundglass opacities with mosaic attenuation within the lungs. Subtle interlobular septal thickening is present. There are patchy lower lung airspace opacities. No confluent consolidation. No central obstructing mass is present. Abdomen and pelvis CT will be reported separately. IMPRESSION: 1. Subtle groundglass opacities and interlobular septal thickening. The findings favor a mild pulmonary edema. 2. Mild lower lung scattered opacities which could reflect atelectasis, scarring or a superimposed infectious process. 3. No change in multiple pulmonary nodules since chest CT of April 21, 2023. These remain indeterminate. A chest CT in 6 months to ensure continued stability is recommended. CT OF THE ABDOMEN AND PELVIS WITHOUT CONTRAST CLINICAL HISTORY: mild diffuse pain, sob, swelling COMPARISON STUDY: CT of the abdomen and pelvis April 22, 2023. TECHNIQUE: Axial images of the abdomen and pelvis were obtained without IV contrast. Images were reviewed in the axial, sagittal, and coronal planes. Automated exposure control was utilized for the study. A dose lowering technique was utilized adhering to the principles of ALARA. FINDINGS: Please note that the chest CT will be reported separately. No pneumatosis, free air or portal venous gas is present. No renal, ureteral or bladder calculi are present. There is no hydronephrosis. Evaluation of the remainder of the abdomen and pelvis is suboptimal on this unenhanced exam. There is no biliary ductal dilatation status post cholecystectomy. There is bilateral gynecomastia. Liver, adrenal glands and pancreas are unremarkable. A 4.3 x 2.2 cm hypodense focus within the superior aspect of the spleen is new since prior CT. There is no evidence for a bowel obstruction. There is a moderate amount stool within the rectum. No bowel wall thickening is identified on unenhanced exam. The appendix is normal. There is no lymphadenopathy. IVC filter is in place. Right hip arthroplasty is intact. No acute fractures within the visualized skeletal structures are present. Water attenuation left renal lesion favors a cyst. IMPRESSION: 1. 4.3 x 2.2 cm hypodense focus within the spleen. This represents an age indeterminate splenic infarct however is new since CT of April 22, 2023. 2. No urinary calculi. No hydronephrosis. 3. No bowel obstruction. Code Status & VTE Plan Code Status Full (1) CHF exacerbation Heart failure type: diastolic Qualified Code(s): I50.33 - Acute on chronic diastolic (congestive) heart failure (6) Atrial fibrillation Atrial fibrillation type: persistent (not longstanding) Qualified Code(s): I48.19 - Other persistent atrial fibrillation
[2023-07-08 12:09] LABS: Protein Urine Trace (Negative)
--- NOTE | 2023-07-08 13:26 | Electrocardiogram Report ---
Test Reason : Blood Pressure : / mmHG Vent. Rate : 091 BPM Atrial Rate : 000 BPM P-R Int : 000 ms QRS Dur : 090 ms QT Int : 394 ms P-R-T Axes : 000 020 210 degrees QTc Int : 484 ms Atrial fibrillation Abnormal ECG When compared with ECG of 21-JUN-2023 06:26, Inverted T waves have replaced nonspecific T wave abnormality in Inferior leads Confirmed by Todd Patricio ([id number]) on 07/08/2023 1:26:33 PM Referred By: Confirmed By:Jose Patricio
[2023-07-08] MEDS ORDERED: CARBOHYDRATES FOR HYPOGLYCEMIA PO PRN (15:15)
[2023-07-08] MEDS ORDERED: GLUCOSE 40% GEL 15 GM TUBE PO PRN (15:15)
[2023-07-08] MEDS ORDERED: DEXTROSE 50% 50 ML SYRINGE IV PRN (15:15)
[2023-07-08] MEDS ORDERED: GLUCOSE 10 TAB/TUBE PO PRN (15:15)
[2023-07-08] MEDS ORDERED: GLUCAGON FOR INJ 1 MG VIAL SQ PRN (15:15)
[2023-07-08] MEDS: INSULIN ASPART PER UNIT CHARGE SC SCH (16:45)
[2023-07-08] MEDS: FUROSEMIDE 40 MG/4 ML VIAL IV SCH (17:08)
[2023-07-08] MEDS: MAGNESIUM OXIDE 400 MG TAB PO SCH (17:09)
[2023-07-08] MEDS: predniSONE 10 MG TABLET PO SCH (17:09)
[2023-07-08] MEDS: allopurinoL 100 MG TAB PO SCH (17:09)
[2023-07-08] MEDS: METOPROLOL SUCC 50MG EXT REL TAB PO SCH (20:03)
[2023-07-08] MEDS: LANTUS PER UNIT CHARGE SQ SCH (21:40)
[2023-07-09 06:38] LABS: Hematocrit (blood only) 43.7 % (42.0-52.0); Hemoglobin 13.5 g/dl (14.0-18.0); Mean Corpuscular Hemoglobin 27.8 pg (25.0-34.0); Mean Corpuscular Hgb Conc 30.9 g/dL (32.0-36.0); Mean Corpuscular Volume 89.9 fL (80.0-100.0); Platelet Count 112 K/uL (130-400); RDW Coefficient of Variation 20.3 % (11.5-14.5); RDW Standard Deviation 65.3 fL (36.4-46.3); Red Blood Count 4.86 M/uL (4.70-6.10); White Blood Count 9.75 K/ul (4.8-10.8)
[2023-07-09 06:58] LABS: Albumin Globulin Ratio 1.1 (0.9-2); Albumin Level 3.1 gm/dl (3.4-5.0); BUN Creatinine Ratio 42.3 (10-20); Bilirubin,Total 1.1 mg/dl (0.2-1.0); Calcium 9.8 mg/dl (8.6-10.3); Creatinine Clr Calc Pharmacy 42.5 ml/min; Est GFR (African American) 52.2 ml/min; Globulin 2.9 gm/dl (2.5-4.0); Magnesium 1.9 mg/dl (1.7-2.4); Phosphorus 4.2 mg/dl (2.5-4.9)
[2023-07-09 07:01] LABS: INR 4.5 (0.9-1.1)
--- NOTE | 2023-07-09 08:07 | Cardiology Consultation ---
Date of Consultation July 09, 2023 Assessment & Plan (1) Diastolic heart failure due to valvular disease: (2) Permanent atrial fibrillation: (3) Pneumonia due to COVID-19 virus: (4) Splenic infarct: Plan IMPRESSION: Medically complex 83 year old male admitted with acute on chronic HFpEF Longstanding history of Paroxysmal/persistent atrial fibrillation, Aortic stenosis s/t mechanical AVR, severe mitral stenosis, and pulmonary HTN. PLAN: 1. Acute on chronic diastolic Heart failure due to valvular disease -Echocardiogram as noted. Known history of severe mitral stenosis as well as aortic stenosis s/p Mechanical AVR in Jun 2006 ([facility]). No significant changes. -Patient reports improvement in symptoms today, but continues to demonstrate mild volume overload. -Exacerbation possible in the setting of dietary indiscretions, steroid taper use (prior covid-PNA), and de-escalation of diuretics last admission. -Continue to cautious diureses with Furosemide 40mg IV BID and reassess fluid status, I&O, renal function and electrolytes in the AM. -Continue Toprol xl and Spironolactone as part of HF regimen. 2. Persistent atrial fibrillation: -Known history of A-fib, currently rate controlled, 80-low 100s. continue Toprol xl. -Coumadin on hold due to supratherapeutic INRs 3. 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 INRs have been elevated above goal. -Coumadin on hold, resume and titrate as appropriate in the setting of a known mechanical aortic valve. Case discussed with Dr. Chcako. I spent a total of 40 minutes on the date of service in preparation, delivery, and documentation of the care provided to the patient excluding any time spent in the performance of separately billed services. JESI Cervantes Department of Cardiology, [facility] This chart was completed in part utilizing Speech Voice Recognition Software. Grammatical errors, random word insertions, pronoun errors, and incomplete sentences are an occasional consequence of this system due to software limitations, ambient noise, and hardware issues. Any formal questions or concerns about the content, text, or information contained within the body of this dictation should be directly addressed to the provider for clarification. Supervising Physician Co-Signing Physician Notes Supervising Physician Attestation: I have personally performed a history and physical examination on the patient. I agree with the physician geriatric nurse assistant's findings and plan as documented with the following additions. Subjective: The time my assessment patient's only complaint was generalized fatigue. Rate controlled atrial fibrillation in the 90s present on telemetry. Exam: Pulmonary: Mildly decreased breath sounds the bases cardiovascular: Irregular rhythm, plus bilateral lower extremity edema Data: Creatinine 1.42 CT chest consistent with pulmonary edema Assessment and Plan: Acute on chronic heart failure with preserved ejection fraction Mechanical aortic valve prosthesis functioning appropriately on recent echocardiogram June, Mitral stenosis RV dysfunction -Coumadin on hold for INR of 4.5 (goal 2.5-3.5) -Continue furosemide 40 mg IV BID, spironolactone, monitor renal function and electrolytes. DVT prophylaxis: as noted I spent a total of 20 minutes on the date of service in preparation, delivery, and documentation of the care provided to this patient, excluding any time spent in the performance of separately billed services. Selvin Chacko, History of Present Illness Reason for Consultation: Shortness of breath Requesting Physician: Fern hospitalist Attending Physician: Citlaly Vargas MD History of Present Illness Medically complex 83-year-old male who presented to [facility] emergency department due to progressive shortness of breath and lower extremity edema. CT of the chest showed mild pulmonary edema. BNP was 368, received 40 mg of IV Lasix in the emergency department and was started on 40 mg IV Lasix twice daily. Echocardiogram dated 06/21/2023, LVEF 60 to 65% with moderate concentric LVH, flattened septum consistent with RV pressure overload. Left atrium severely dilated, mechanical aortic valve, stable gradients-- moderate to severe mitral stenosis and mild to moderate MR. Incidental splenic infarct noted on CT of the abdomen/pelvis--patient is on Coumadin. INRs appear to be therapeutic/supratherapeutic. Recently admitted at the beginning of June due to COVID-19 pneumonia and acute on chronic diastolic CHF. Patient received supportive measures for COVID- pneumonia with treatment of antibiotics. IV diuresis improved with overall volume status. He was discharged home on 06/24. Discharge Lasix dosage: 40 mg daily with an additional 40 mg every Sunday (normally 40 mg BID per outpatient records) He was also discharged home on a prednisone taper. Upon entrance into the room patient resting in bed. Feels subjectively improved compared to admission. Continues to utilize oxygen for comfort- sats have been stable in the upper 90%. No chest pain. Continues to have some shortness of breath. No palpitations or lightheadedness. Harper cath in place. Receiving IV Lasix. Tele: AFIB 80-100s Primary Crossbow Maker: Dr. Park Past medical history: 1.Aortic valve replacement in June 2006, for calcific aortic stenosis, receiving a [address] [facility] mechanical prosthesis. 2.Calcified mitral valve with severe mitral stenosis and Pulm HTN. 3.Atherosclerotic coronary disease status post coronary bypass grafting at time of aortic valve replacement, receiving saphenous vein graft to the obtuse marginal, saphenous vein graft to the posterior descending artery. 1.Diffuse coronary atherosclerosis. Pre-op cardiac catheterization with 50% LAD, 100% obtuse marginal, 100% right coronary artery. 4.Postoperative atrial fibrillation/flutter, controlled in sinus. On sotalol- Hx of mildly prolonged QTc (stable) 1.On warfarin, INR goal between 2.5-3.5 due to mechanical AVR 5.History of venous insufficiency, status post past DVT and chronic IVC filter implantation. 6.Hyperlipidemia. 7.Hypertension. 8.Moderate to severe pulmonary hypertension, PASP 60 mmHg, per echo 07/2021 stable compared to 09/2020 echo Allergies Allergy/AdvReac Type Severity Reaction Status Date / Time niacin Allergy Intermediate HIVES Verified 04/21/23 09:30 Home Medications Medication Instructions Recorded Confirmed Type nitroglycerin 0.4 mg sublingual 0.4 mg sublingual PRN PRN Chest 12/09/09 06/20/23 History tablet (Nitrostat) Pain ##0 travoprost 0.004 % eye drops 1 drp OPB HS #1 btl 10/13/15 06/20/23 History allopurinol 100 mg tablet 200 mg PO Q2D 04/21/23 07/08/23 History aspirin 81 mg chewable tablet 81 mg PO .SUN/SUN/Sun04/21/23 07/08/23 History brimonidine 0.2 % eye drops 1 drp OPL BID 04/21/23 06/20/23 History dorzolamide-timolol (PF) 2 %-0.5 % 1 drp OPL BID 04/21/23 06/20/23 History eye drops in a dropperette furosemide 40 mg tablet 40 mg PO BID17 04/21/23 07/08/23 History insulin aspart U-100 100 unit/mL See Rx Instructions .Route .COMPLEX 04/21/23 07/08/23 History subcutaneous solution (Novolog U-100 Insulin aspart) insulin detemir U-100 100 unit/mL 10 unit subcut HS 04/21/23 07/08/23 History subcutaneous solution (Levemir U-100 Insulin) metformin 1,000 mg tablet 1,000 mg PO BID 04/21/23 07/08/23 History tramadol 50 mg tablet 50 mg PO Q4H PRN pain #10 tabs 05/27/23 07/08/23 Rx magnesium oxide 400 mg (241.3 mg 400 mg PO BID 06/20/23 07/08/23 History magnesium) tablet metoprolol succinate 100 mg 100 mg PO BID 06/20/23 07/08/23 History tablet,extended release 24 hr spironolactone 25 mg tablet 12.5 mg PO DAILY 06/20/23 07/08/23 History prednisone 10 mg tablet See Taper PO DIRECTED #94 tabs 06/24/23 07/08/23 Rx warfarin 4 mg tablet 2 mg PO DAILY 07/08/23 07/08/23 History Patient History Medical History (Updated 07/09/23 @ 09:36 by JESI Macario) UTI (urinary tract infection) Atrial fibrillation Anemia CHF (congestive heart failure) Mitral valve stenosis HTN (hypertension) HLD (hyperlipidemia) CAD (coronary artery disease) Lumbago Surgical History (Updated 06/20/23 @ 14:24 by Jayme Cummings MD) History of cataract surgery 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" S/P AVR "2006" History of hip surgery S/P cholecystectomy Social History Smoking Status: Former smoker Hx Alcohol Use: No Hx Substance Use: No Preferred Language: [place] Communication Ability: Effective Roll Machine Operator Required: No Beliefs That Will Affect Care: None Current Living Situation: Family Current Living Situation Comment: Lives with jennifer Dixon Feels Safe at Home: Yes Safety Concerns: Feels Safe At This Time Assistive Devices: Cane, Walker and Wheelchair Review of Systems Review of Systems: All systems reviewed & are unremarkable except as noted in HPI & below Physical Exam Constitutional: WD/WN, vitals as above + ill appearing; no acute distress Neck: normal visual inspection and trachea midline Respiratory: normal respiratory effort, + cough and + tachypneic Auscultation: + rales and + wheezes; no rhonchi Cardiovascular: Rate/Rhythm: regular rate and + irregularly irregular Heart Sounds: normal S1, normal S2 and + murmur (+3/6 systolic murmur) Vessels: no JVD Extremities: + edema (+1 BLLE pitting edema, compression socks in place ) Gastrointestinal (Abdomen): normal bowel sounds, soft, nontender, no hepatosplenomegaly Skin: no rashes, warm and dry Psychiatric: Orientation: alert and oriented x 3 Results & Data Vital Signs (Past 12 Hours) Vital Signs Temp Pulse Resp BP Pulse Ox O2 Del Method O2 Flow Rate 07/09/23 03:52 36.8 C 91 H 22 128/79 97 Nasal Cannula 1 07/08/23 23:33 36.5 C 94 H 18 107/68 97 Nasal Cannula 1 07/08/23 21:57 Nasal Cannula 1 Laboratory Results Cardiac Enzymes 07/08/23 07/08/23 07/08/23 Range/Units 10:22 16:26 22:42 AST (13-39) U/L Troponin I High Sens 63.0 H* 68.1 H* 77.1 H* (0-20) pg/ml 07/09/23 Range/Units 05:56 AST 16 (13-39) U/L Troponin I High Sens (0-20) pg/ml Coagulation 07/08/23 07/09/23 Range/Units 08:26 05:56 PT 51.1 H 45.0 H (9.0-12.0) Seconds APTT 38 H (21-31) Seconds CBC 07/09/23 Range/Units 05:56 WBC 9.75 (4.8-10.8) K/ul RBC 4.86 (4.70-6.10) M/uL Hgb 13.5 L (14.0-18.0) g/dl Hct 43.7 (42.0-52.0) % Plt Count 112 L (130-400) K/uL Comprehensive Metabolic Panel 07/09/23 Range/Units 05:56 Sodium 140 (136-145) mmol/L Potassium 4.0 (3.5-5.1) mmol/L Chloride 100 (98-107) mmol/L Carbon Dioxide 34 H (21-32) mmol/L BUN 60 H (6-23) mg/dl Creatinine 1.42 H (0.6-1.4) mg/dl Glucose 228 H (70-99(Fasting)) mg/dl Calcium 9.8 (8.6-10.3) mg/dl AST 16 (13-39) U/L ALT 17 (7-52) U/L Alkaline Phosphatase 81 (34-104) U/L Total Protein 6.0 (6.0-8.3) gm/dl Albumin 3.1 L (3.4-5.0) gm/dl Intake and Output 07/08/23 07/09/23 07/09/23 22:59 06:59 14:59 Intake Total 720 / 720 Output Total 1500 / 2300 800 / 2300 Balance -1500 / -1580 -80 / -1580 Intake: Oral 720 / 720 Output: Urine Amount (Catheter) 1500 / 2300 800 / 2300 Harper/Indwelling 1500 / 2300 800 / 2300 Other: Weight 78.1 kg 79.3 kg Weight Measurement Method Built in [facility] Built in [facility] (1) Diastolic heart failure due to valvular disease Heart failure chronicity: acute on chronic Qualified Code(s): I50.33 - Acute on chronic diastolic (congestive) heart failure; I38 - Endocarditis, valve unspecified
[2023-07-09] MEDS: ASPIRIN 81 MG CHEW PO SCH (09:07)
[2023-07-09] MEDS: SPIRONOLACTONE 12.5 MG TAB PO SCH (09:07)
--- NOTE | 2023-07-09 14:07 | Hospitalist Progress Note ---
Date of Service July 09, 2023 Assessment & Plan (1) CHF exacerbation: Plan: 83-year-old man with history of diabetes mellitus type 2, paroxysmal A-fib, chronic diastolic heart failure, mitral valve stenosis, aortic valvular replacement with mechanical valve on warfarin, CAD, glaucoma, hypertension, pulmonary hypertension, hyperlipidemia, ACEI nephrotoxicity, recent hospitalization 06/20/23-06/24/23 for COVID 19 pneumonia, UTI, supratherapeutic INR who presents today with shortness of breath that started overnight. Acute on chronic diastolic heart failure. Complicated by COVID-[address] chestnoted findings suggestive of pulmonary edema. BNP was 368 Got IV Lasix 40 mg in the ER. Will continue IV Lasix 40 mg twice daily. May need additional doses as needed. Appreciate cardiology input and recommendation Echocardiogram from 06/21/2023 noted EF of 60 to 65%, moderate concentric LVH, flattened septum consistent with RV pressure overload, severely dilated left atrium, prosthetic aortic valve, moderate to severe mitral stenosis, mild to mod erate mitral regurgitation, HEART: Heart sounds are regular, no murmur or gallop or rub is heard. Tricuspid regurgitation, right ventricular systolic pressure more than 60 mmHg. Clinically a little better Will continue current diuresis and monitor electrolytes COVID-19 virus infection with profound weakness Initial positive test on 06/20/2019 repeat test on admission came back to be positive as well Complaint to have 2 days symptoms of cough and increasing shortness of breath with leg swelling Chest x-ray remains unremarkable Has profound weakness likely secondary to COVID We will keep the patient for isolation as long as cough is there We will get PT and OT evaluation (2) Elevated troponin I level: Plan: Trop is elevated 58 and serial cardiac enzymes did not support any ACS EKG showed AFib and nonspecific T wave changes Denies any cardiac symptoms of chest pain and her palpitation (3) Elevated lactic acid level: Plan: Elevated lactate likely due to heart failure WBC is borderline at 12K Procal is normal Low suspicion for infection at this time Lactate was 5.1 to 3.6. Trending down (4) Splenic infarct: Plan: Patient denied abdominal pain Son also stated he did not complain of abd pain No tenderness on exam Abdominal CT noted age indeterminate splenic infarct new from 04/2023 No acute issues (5) resp therapist current use of anticoagulant: (6) Atrial fibrillation: Plan: Continue ASA 81mg MWF home dose Continue metoprolol succinate 100mg BID (7) Supratherapeutic INR: Plan: Patient has atrial fibrillation, mechanical aortic valve. Is currently rate controlled. On warfarin. Outpatient cardiology office noted INR goal was 2.5-3.5 Son reported due to recurrent epistaxis, INR goal was changed to 2.5-3. Outpatient anticoagulation MTM note also noted that INR goal is 2.5-3. Patient INR was 4 on 07/05/23. He was previously on warfarin 4mg on sunday and 2mg other days. He was told to hold warfarin on 07/05/23 and then continue warfarin at 2mg every day. INR today is 5.2 today No active bleeding. Hb stable Hold off warfarin for now and monitor INR daily until close to goal (8) DM2 (diabetes mellitus, type 2): Plan: Son reports patient usually eats breakfast and dinner He gives him Novolog 15U with meals with extra 1 unit for every 25 above blood glucose of 120mg as well as levemir 10U HS HbA1c 7.3 in Apr 2023 Hold home metformin Lantus 10U HS ISS Accucheck AC and HS (9) Gout: Plan: Continue home allopurinol (10) Osteoarthritis: Plan: Tylenol prn DVT ppx: Currently supratherapeutic INR. 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 swallowing issues Fall precautions +COVID likely from recent infection Admission and Anticipated Discharge Date Admission Date: July 08, 2023 Subjective 07/09/2023 The patient was seen and examined in telemetry unit and in the COVID room She was admitted with cough and increasing shortness of breath with leg swelling for the last 2 to 3 days Has been feeling little better since admission Has not had any cough this morning and denies any chest pain and her palpitation Shortness of breath has not gotten any worse Review of Systems Review of Systems: All systems reviewed and are unremarkable except as noted below Physical Exam Physical Exam: Lying in bed with minimal shortness of breath at rest Constitutional: + ill appearing and average body habitus Eyes: PERRL, conjunctivae normal, anicteric sclerae ENMT: external ear and nose normal, oropharynx normal Neck: trachea midline, no thyromegaly Respiratory: no respiratory distress Auscultation: + diminished lung sounds and + crackles (Occasional crackles at the bases) Cardiovascular: Rate/Rhythm: regular rate, regular rhythm and + tachycardic Heart Sounds: normal S1, normal S2 and + murmur (2/6 ESM over precordium) Extremities: + edema (1+ edema bilaterally) Gastrointestinal (Abdomen): Inspection/Auscultation: normal bowel sounds; abdomen not distended Percussion/Palpation: abdomen soft; abdomen nontender Musculoskeletal: No acute arthritis involving any of the joint Neurologic: Alert and awake. Moves all limbs equally Psychiatric: A+Ox3, euthymic affect Lymphatic: no cervical or axillary lymphadenopathy Results & Data Results & Data Vital Signs (Past 12 Hours) Vital Signs Temp Pulse Resp BP Pulse Ox O2 Del Method O2 Flow Rate 07/09/23 08:17 36.8 C 101 H 18 115/85 98 Nasal Cannula 1.0 07/09/23 08:00 Nasal Cannula 1 07/09/23 03:52 36.8 C 91 H 22 128/79 97 Nasal Cannula 1 Laboratory Results Short CBC 07/09/23 Range/Units 05:56 WBC 9.75 (4.8-10.8) K/ul Hgb 13.5 L (14.0-18.0) g/dl Hct 43.7 (42.0-52.0) % Plt Count 112 L (130-400) K/uL BMP 07/09/23 05:56 Sodium 140 Potassium 4.0 Chloride 100 Carbon Dioxide 34 H BUN 60 H Creatinine 1.42 H Glucose 228 H Calcium 9.8 Liver Function 07/09/23 Range/Units 05:56 Total Bilirubin 1.1 H (0.2-1.0) mg/dl AST 16 (13-39) U/L ALT 17 (7-52) U/L Alkaline Phosphatase 81 (34-104) U/L Albumin 3.1 L (3.4-5.0) gm/dl Medications Administered Current Inpatient Medications Allopurinol (Allopurinol 100 Mg Tab) 200 mg PO Q2D@0900 [facility] Stop: 08/07/23 15:29 Last Admin: 07/08/23 17:09 Dose: 200 mg Aspirin (Aspirin 81 Mg Chew) 81 mg PO MoWeFr@0900 [facility] Stop: 08/08/23 08:59 Last Admin: 07/09/23 09:07 Dose: 81 mg Dextrose (Dextrose 50% 50 Ml Syringe) 25 - 50 ml IV UD PRN; Protocol PRN Reason: Hypoglycemia Protocol Stop: 08/07/23 15:14 Furosemide (Furosemide 40 Mg/4 Ml Vial) 40 mg IV BID17 RONAN Stop: 08/07/23 16:59 Last Admin: 07/09/23 09:07 Dose: 40 mg Glucagon (Glucagon For Inj 1 Mg Vial) 1 mg SQ UD PRN; Protocol PRN Reason: Hypoglycemia Protocol Stop: 08/07/23 15:14 Glucose (Glucose 10 Tab/Tube) 4 - 8 tab PO UD PRN; Protocol PRN Reason: Hypoglycemia Treatment Stop: 08/07/23 15:14 Glucose (Glucose 40% Gel 15 Gm Tube) 15 - 30 gm PO UD PRN; Protocol PRN Reason: Hypoglycemia Protocol Stop: 08/07/23 15:14 Insulin Aspart (Insulin Aspart Per Unit Charge) 0 units SC ACHS [facility] Stop: 08/07/23 16:29 Last Admin: 07/09/23 13:17 Dose: 5 units Insulin Glargine (Lantus Per Unit Charge) 10 units SQ HS [facility] Stop: 08/07/23 20:59 Last Admin: 07/08/23 21:40 Dose: 10 units Magnesium Oxide (Magnesium Oxide 400 Mg Tab) 400 mg PO BID [facility] Stop: 08/07/23 15:29 Last Admin: 07/09/23 09:07 Dose: 400 mg Metoprolol Succinate (Metoprolol Succ 50mg Ext Rel Tab) 100 mg PO BID [facility] Stop: 08/07/23 20:59 Last Admin: 07/09/23 09:07 Dose: 100 mg Miscellaneous (Carbohydrates For Hypoglycemia ) 15 - 30 gm PO UD PRN PRN Reason: Hypoglycemia Protocol Stop: 08/07/23 15:14 Prednisone (Prednisone 10 Mg Tablet) 30 mg PO DAILY [facility]; Taper Stop: 07/27/23 15:29 Last Admin: 07/09/23 09:07 Dose: 30 mg Spironolactone (Spironolactone 12.5 Mg Tab) 12.5 mg PO DAILY [facility] Stop: 08/08/23 08:59 Last Admin: 07/09/23 09:07 Dose: 12.5 mg (1) CHF exacerbation Heart failure type: diastolic Qualified Code(s): I50.33 - Acute on chronic diastolic (congestive) heart failure (6) Atrial fibrillation Atrial fibrillation type: persistent (not longstanding) Qualified Code(s): I48.19 - Other persistent atrial fibrillation
--- NOTE | 2023-07-09 15:22 | Fluoroscopy Report ---
MODIFIED BARIUM SWALLOW CLINICAL HISTORY: r/o aspiration COMPARISON STUDY: None. FLUOROSCOPY TIME: 2.36 minutes. Ka, r: 12 mGy. TECHNIQUE: A modified barium swallow was performed in conjunction with Speech Pathology. The patient ingested varying consistencies of barium containing material. Video fluoroscopy was performed. FINDINGS: There were multiple episodes of tracheal aspiration with thin liquids and nectar thick liqu ids. Premature spillage was noted with diminished epiglottic inversion and laryngeal elevation. There was passive opening of the upper esophageal sphincter. Moderate retention within the vallecula and p iriform sinuses was noted with multiple consistencies. No tracheal aspiration was identified with pud ding or cracker in pudding consistencies. Residuals were noted with these consistencies. IMPRESSION: 1. Multiple episodes of tracheal aspiration with thin liquids and nectar thick liquids. Impaired swal lowing mechanism with diminished epiglottic inversion and laryngeal elevation. Passive opening of the upper esophageal sphincter. 2. Moderate residuals with multiple consistencies. 3. Full recommendations by Speech pathology to follow. ACT 112: Negative or not required by law. Electronically signed by: Anurag Pandey M.D. 07/09/2023 3:20 PM
[2023-07-10 02:30] LABS: A calco-baum cmplx NotReported Not Detected (NotDetected); Bact fragilis Not Reported Not Detected (NotDetected); Blood Culture Id Panel See PCR Comment (NotDetected); C auris Not Reported Not Detected (NotDetected); Calbicans Not Reported Not Detected (NotDetected); Candida glabrata Not Reported Not Detected (NotDetected); Candida krusei Not Reported Not Detected (NotDetected); Cneoformans/gatti Not Reported Not Detected (NotDetected); Cparapsilosis Not Reported Not Detected (NotDetected); E cloacae compx Not Reported Not Detected (NotDetected); Efaecalis Not Reported Not Detected (NotDetected); Efaecium Not Reported Not Detected (NotDetected); Enterobacterales Not Reported Not Detected (NotDetected); Escherichia coli Not Reported Not Detected (NotDetected); H influenzae Not Reported Not Detected (NotDetected); K aerogenes Not Reported Not Detected (NotDetected); Koxytoca Not Reported Not Detected (NotDetected); Kpneumoniae grp Not Reported Not Detected (NotDetected); Lmonocyt Not Reported Not Detected (NotDetected); N meningitidis Not Reported Not Detected (NotDetected); P aeruginosa Not Reported Not Detected (NotDetected); Proteus spp Not Reported Not Detected (NotDetected); Salmonella spp Not Reported Not Detected (NotDetected); Smarcescens Not Reported Not Detected (NotDetected); Staph lugdunensis Not Reported Not Detected (NotDetected); Staph spp. Not Reported DETECTED (NotDetected); Staphaureus Not Reported Not Detected (NotDetected); Staphepi Not Reported Not Detected (NotDetected); Stenmaltophilia Not Reported Not Detected (NotDetected); Strep agal(GrpB) Not Reported Not Detected (NotDetected); Strep pneum Not Reported Not Detected (NotDetected); Strep pyog (GrpA) Not Reported Not Detected (NotDetected); Strep spp Not Reported Not Detected (NotDetected)
[2023-07-10 02:41] LABS: Staphylococcus spp. DETECTED (NotDetected)
[2023-07-10 06:27] LABS: Basophils # (auto) 0.01 K/uL (0.00-0.20); Basophils % (auto) 0.1 %; Eosinophils # (auto) 0.03 K/uL (0.00-0.50); Eosinophils % (auto) 0.3 %; Hematocrit (blood only) 41.8 % (42.0-52.0); Hemoglobin 13.1 g/dl (14.0-18.0); Immature Granulocytes # (auto) 0.06 K/uL (0.01-0.20); Immature Granulocytes % (auto) 0.6 %; Lymphocytes # (auto) 1.02 K/uL (1.20-3.40); Lymphocytes % (auto) 9.9 %; Mean Corpuscular Hemoglobin 27.8 pg (25.0-34.0); Mean Corpuscular Hgb Conc 31.3 g/dL (32.0-36.0); Mean Corpuscular Volume 88.7 fL (80.0-100.0); Mean Platelet Volume 12.2 fL (9.4-12.4); Monocytes # (auto) 0.81 K/uL (0.11-0.59); Monocytes % (auto) 7.8 %; Neutrophils % (auto) 81.3 %; Platelet Count 113 K/uL (130-400); RDW Coefficient of Variation 19.2 % (11.5-14.5); RDW Standard Deviation 62.4 fL (36.4-46.3); Red Blood Count 4.71 M/uL (4.70-6.10); White Blood Count 10.33 K/ul (4.8-10.8)
[2023-07-10 06:54] LABS: INR 4.7 (0.9-1.1); Prothrombin Time 46.6 Seconds (9.0-12.0)
[2023-07-10 07:03] LABS: Alanine Aminotransferase 19 U/L (7-52); Albumin Globulin Ratio 1.1 (0.9-2); Albumin Level 3.2 gm/dl (3.4-5.0); Alkaline Phosphatase 81 U/L (34-104); Anion Gap 6 (3-11); BUN Creatinine Ratio 44.9 (10-20); Blood Urea Nitrogen 53 mg/dl (6-23); Calcium 9.8 mg/dl (8.6-10.3); Carbon Dioxide 33 mmol/L (21-32); Chloride 99 mmol/L (98-107); Est GFR (African American) 65.3 ml/min; Est GFR (Non-African American) 56.3 ml/min; Globulin 2.9 gm/dl (2.5-4.0); Glucose 158 mg/dl (70-99(Fasting)); Magnesium 1.9 mg/dl (1.7-2.4); Phosphorus 3.1 mg/dl (2.5-4.9); Sodium 138 mmol/L (136-145); Total Protein 6.1 gm/dl (6.0-8.3)
--- NOTE | 2023-07-10 07:08 | Cardiology Progress Note ---
Date of Service July 10, 2023 Assessment & Plan (1) Diastolic heart failure due to valvular disease: (2) Permanent atrial fibrillation: (3) Pneumonia due to COVID-19 virus: (4) Splenic infarct: Plan IMPRESSION: Medically complex 83 year old male admitted with acute on chronic HFpEF Longstanding history of Paroxysmal/persistent atrial fibrillation, Aortic stenosis s/p [facility] mechanical AVR, severe mitral stenosis, and pulmonary HTN. PLAN: 1. Acute on chronic diastolic Heart failure due to valvular disease -Echocardiogram as noted. Known history of severe mitral stenosis as well as aortic stenosis s/p Mechanical AVR in Jun 2006 ([facility]). No significant changes. -Patient reports improvement in symptoms today, but continues to demonstrate mild volume overload. -Exacerbation possible in the setting of dietary indiscretions, steroid taper use (prior covid-PNA), and de-escalation of diuretics last admission. -Continue to cautious diureses with Furosemide 40mg IV BID and reassess fluid status, I&O, renal function and electrolytes in the AM. K goal of 4.0 and mag goal of 2.0. -Continue Toprol xl and Spironolactone as part of HF regimen. 2. Persistent atrial fibrillation: -Known history of A-fib, currently rate controlled, 80-low 100s. continue Toprol xl. -Coumadin on hold due to supratherapeutic INRs 3. 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 INRs have been elevated above goal. -Coumadin on hold, resume and titrate as appropriate in the setting of a known mechanical aortic valve. Case discussed with Dr. Chacko. I spent a total of 20 minutes on the date of service in preparation, delivery, and documentation of the care provided to the patient excluding any time spent in the performance of separately billed services. JESI Cervantes Department of Cardiology, [facility] This chart was completed in part utilizing Speech Voice Recognition Software. Grammatical errors, random word insertions, pronoun errors, and incomplete sentences are an occasional consequence of this system due to software limitations, ambient noise, and hardware issues. Any formal questions or concerns about the content, text, or information contained within the body of this dictation should be directly addressed to the provider for clarification. Admission and Anticipated Discharge Date Admission Date: July 08, 2023 Supervising Physician Co-Signing Physician Notes Supervising Physician Attestation: I have personally performed a history and physical examination on the patient. I agree with the physician dental ceramist assistant's findings and plan as documented with the following additions. Subjective: Son was at the bedside at the time of my assessment. Patient complains of ongoing debilitating easy fatigability. He becomes exhausted with just minimal movement in his bed. Exam: Pulmonary: Mildly decreased breath sounds the bases cardiovascular: Irregular rhythm, plus bilateral lower extremity edema Data: Telemetry reveals atrial fibrillation rate for the most part in the 90s while awake Potassium 3.7, creatinine 1.18 down from 1.42 mg/dL, INR 4.7 Assessment and Plan: Acute on chronic heart failure with preserved ejection fraction Mechanical aortic valve prosthesis functioning appropriately on recent echocardiogram June, Mitral stenosis RV dysfunction Deconditioning -Coumadin on hold for elevated INR.Goal INR is 2.5-3.5 given mechanical AVR. -Continue furosemide 40 mg IV BID, spironolactone, monitor renal function and electrolytes. DVT prophylaxis: as noted I spent a total of 20 minutes on the date of service in preparation, delivery, and documentation of the care provided to this patient, excluding any time spent in the performance of separately billed services. Selvin Chacko, DO Subjective Medically complex 83 year old male admitted with acute on chronic HFpEF Longstanding history of Paroxysmal/persistent atrial fibrillation, Aortic stenosis s/t mechanical AVR, severe mitral stenosis, and pulmonary HTN. 07/09: Hypervolemic on exam. CT of the chest consistent with mild pulmonary edema. Patient diuresed with furosemide 40 mill ems IV twice daily Coumadin on hold due to supratherapeutic INR (4.5) 07/10: Upon entrance into the room patient resting in bed. No acute concerns but feels generally poor- notes weakness and fatigue. Ongoing shortness of breath, but improving. No chest pain. +orthopnea. +BLLE pitting edema. Telemetry: AFIB 70-90s Labs: Creatinine improved 1.4>>1.18. K 3.4 (being supplemented). INR 4.7 I&O: 1.9 L (24hrs), 3.4 L total Weight: 79.3>>77.3 kg Review of Systems Review of Systems: All systems reviewed & are unremarkable except as noted in HPI & below Physical Exam Constitutional: WD/WN, vitals as above + ill appearing; no acute distress Neck: normal visual inspection and trachea midline Respiratory: normal respiratory effort, + cough and + tachypneic Auscultation: + rales and + wheezes; no rhonchi Cardiovascular: Rate/Rhythm: regular rate and + irregularly irregular Heart Sounds: normal S1, normal S2 and + murmur (+3/6 systolic murmur) Vessels: no JVD Extremities: + edema (+1 BLLE pitting edema, compression socks in place ) Gastrointestinal (Abdomen): normal bowel sounds, soft, nontender, no hepatosplenomegaly Skin: no rashes, warm and dry Psychiatric: Orientation: alert and oriented x 3 Results & Data Vital Signs (Past 12 Hours) Vital Signs Temp Pulse Resp BP Pulse Ox Pulse Ox O2 Del Method 07/10/23 03:00 36.6 C 81 22 101/69 95 Nasal Cannula 07/10/23 00:00 96 07/09/23 23:00 36.8 C 83 20 99/65 L 97 Nasal Cannula O2 Del Method 07/10/23 03:00 07/10/23 00:00 Room Air 07/09/23 23:00 Laboratory Results Cardiac Enzymes 07/10/23 07/10/23 Range/Units 05:47 07:38 AST TNP 20 Coagulation 07/10/23 Range/Units 05:47 PT 46.6 H (9.0-12.0) Seconds CBC 07/10/23 Range/Units 05:47 WBC 10.33 (4.8-10.8) K/ul RBC 4.71 (4.70-6.10) M/uL Hgb 13.1 L (14.0-18.0) g/dl Hct 41.8 L (42.0-52.0) % Plt Count 113 L (130-400) K/uL Neut # (Auto) 8.40 H (1.40-6.50) K/uL Lymph # (Auto) 1.02 L (1.20-3.40) K/uL [place] # (Auto) 0.81 H (0.11-0.59) K/uL Eos # (Auto) 0.03 (0.00-0.50) K/uL Baso # (Auto) 0.01 (0.00-0.20) K/uL Comprehensive Metabolic Panel 07/10/23 07/10/23 Range/Units 05:47 07:38 Sodium 138 (136-145) mmol/L Potassium TNP 3.4 L Chloride 99 (98-107) mmol/L Carbon Dioxide 33 H (21-32) mmol/L BUN 53 H (6-23) mg/dl Creatinine 1.18 (0.6-1.4) mg/dl Glucose 158 H (70-99(Fasting)) mg/dl Calcium 9.8 (8.6-10.3) mg/dl AST TNP 20 ALT 19 (7-52) U/L Alkaline Phosphatase 81 (34-104) U/L Total Protein 6.1 (6.0-8.3) gm/dl Albumin 3.2 L (3.4-5.0) gm/dl Intake and Output 07/09/23 07/10/23 07/10/23 22:59 06:59 14:59 Output Total / 2099 500 / 2100 Balance -650 / -1860 -500 / -1860 Output: Urine Amount (Catheter) 650 / 2099 500 / 2100 Harper/Indwelling 650 / 2099 500 / 2100 Other: Weight 77.3 kg Weight Measurement Method Built in [facility] (1) Diastolic heart failure due to valvular disease Heart failure chronicity: acute on chronic Qualified Code(s): I50.33 - Acute on chronic diastolic (congestive) heart failure; I38 - Endocarditis, valve unspecified
[2023-07-10 08:12] LABS: Potassium 3.4 mmol/L (3.5-5.1)
[2023-07-10] MEDS: POTASSIUM CHLORIDE CRTAB 20 MEQ TABCR PO STA (08:52)
--- NOTE | 2023-07-10 15:42 | Hospitalist Progress Note ---
Date of Service July 10, 2023 Assessment & Plan (1) CHF exacerbation: Plan: 83-year-old man with history of diabetes mellitus type 2, paroxysmal A-fib, chronic diastolic heart failure, mitral valve stenosis, aortic valvular replacement with mechanical valve on warfarin, CAD, glaucoma, hypertension, pulmonary hypertension, hyperlipidemia, ACEI nephrotoxicity, recent hospitalization 06/20/23-06/24/23 for COVID 19 pneumonia, UTI, supratherapeutic INR who presents today with shortness of breath that started overnight. Acute on chronic diastolic heart failure. Complicated by COVID-[address] chestnoted findings suggestive of pulmonary edema. BNP was 368 Got IV Lasix 40 mg in the ER. Will continue IV Lasix 40 mg twice daily. May need additional doses as needed. Appreciate cardiology input and recommendation Echocardiogram from 06/21/2023 noted EF of 60 to 65%, moderate concentric LVH, flattened septum consistent with RV pressure overload, severely dilated left atrium, prosthetic aortic valve, moderate to severe mitral stenosis, mild to mod erate mitral regurgitation, HEART: Heart sounds are regular, no murmur or gallop or rub is heard. Tricuspid regurgitation, right ventricular systolic pressure more than 60 mmHg. Clinically a little better Will continue current diuresis and monitor electrolytes Potassium will be supplemented as it is low Continue current dose of Lasix and diuresis We will monitor PRP and electrolytes COVID-19 virus infection with profound weakness Initial positive test on 06/20/2019 repeat test on admission came back to be positive as well Complaint to have 2 days symptoms of cough and increasing shortness of breath with leg swelling Chest x-ray remains unremarkable Has profound weakness likely secondary to COVID We will keep the patient for isolation as long as cough is there We will get PT and OT evaluation Profound weakness seems to be secondary to COVID will continue PT and OT evaluation (2) Elevated troponin I level: Plan: Trop is elevated 58 and serial cardiac enzymes did not support any ACS EKG showed AFib and nonspecific T wave changes Denies any cardiac symptoms of chest pain and her palpitation (3) Elevated lactic acid level: Plan: Elevated lactate likely due to heart failure WBC is borderline at 12K Procal is normal Low suspicion for infection at this time Lactate was 5.1 to 3.6. 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 Is currently rate controlled. On warfarin. Outpatient cardiology office noted INR goal was 2.5-3.5 Son reported due to recurrent epistaxis, INR goal was changed to 2.5-3. Outpatient anticoagulation MTM note also noted that INR goal is 2.5-3. Patient INR was 4 on 07/05/23. He was previously on warfarin 4mg on sunday and 2mg other days. He was told to hold warfarin on 07/05/23 and then continue warfarin at 2mg every day. INR today is 5.2 today No active bleeding. Hb stable Hold off warfarin for now and monitor INR daily until close to goal INR remains elevated at 4.7 (8) DM2 (diabetes mellitus, type 2): Plan: Son reports patient usually eats breakfast and dinner He gives him Novolog 15U with meals with extra 1 unit for every 25 above blood glucose of 120mg as well as levemir 10U HS HbA1c 7.3 in Apr 2023 Hold home metformin Lantus 10U HS ISS Accucheck AC and HS (9) Gout: Plan: Continue home allopurinol (10) Osteoarthritis: Plan: Tylenol prn DVT ppx: Currently supratherapeutic INR. Will monitor and resume warfarin once appropriate Dispo: PCU PT/OT eval ENGINEERING ASSISTANT eval for reported swallowing issues Fall precautions +COVID likely from recent infection We will discuss with the son Admission and Anticipated Discharge Date Admission Date: July 08, 2023 Subjective 07/09/2023 The patient was seen and examined in telemetry unit and in the COVID room She was admitted with cough and increasing shortness of breath with leg swelling for the last 2 to 3 days Has been feeling little better since admission Has not had any cough this morning and denies any chest pain and her palpitation Shortness of breath has not gotten any worse 07/10/2023 The patient was seen and examined in telemetry unit and in the COVID room He complains to have shortness of breath and remains extremely weak and lethargic Denies any chest pain and her palpitation Review of Systems Review of Systems: All systems reviewed and are unremarkable except as noted below Physical Exam Physical Exam: Lying in bed with minimal shortness of breath at rest Constitutional: + ill appearing and average body habitus Eyes: PERRL, conjunctivae normal, anicteric sclerae ENMT: external ear and nose normal, oropharynx normal Neck: trachea midline, no thyromegaly Respiratory: no respiratory distress Auscultation: + diminished lung sounds and + crackles (Occasional crackles at the bases) Cardiovascular: Rate/Rhythm: regular rate, regular rhythm and + tachycardic Heart Sounds: normal S1, normal S2 and + murmur (2/6 ESM over precordium) Extremities: + edema (1+ edema bilaterally) Gastrointestinal (Abdomen): Inspection/Auscultation: normal bowel sounds; abdomen not distended Percussion/Palpation: abdomen soft; abdomen nontender Musculoskeletal: No acute arthritis involving any of the joint Psychiatric: A+Ox3, euthymic affect Lymphatic: no cervical or axillary lymphadenopathy Results & Data Results & Data Vital Signs (Past 12 Hours) Vital Signs Temp Pulse Resp BP Pulse Ox Pulse Ox O2 Del Method 07/10/23 14:28 36.7 C 93 H 19 110/72 99 Nasal Cannula 07/10/23 12:15 36.8 C 90 19 106/68 98 Nasal Cannula 07/10/23 08:11 Nasal Cannula 07/10/23 08:00 96 O2 Del Method O2 Flow Rate O2 Flow Rate 07/10/23 14:28 1.0 07/10/23 12:15 1.0 07/10/23 08:11 1 07/10/23 08:00 Nasal Cannula 1 Laboratory Results Short CBC 07/10/23 Range/Units 05:47 WBC 10.33 (4.8-10.8) K/ul Hgb 13.1 L (14.0-18.0) g/dl Hct 41.8 L (42.0-52.0) % Plt Count 113 L (130-400) K/uL BMP 07/10/23 07/10/23 05:47 07:38 Sodium 138 Potassium TNP 3.4 L Chloride 99 Carbon Dioxide 33 H BUN 53 H Creatinine 1.18 Glucose 158 H Calcium 9.8 Liver Function 07/10/23 07/10/23 Range/Units 05:47 07:38 Total Bilirubin 1.0 (0.2-1.0) mg/dl AST TNP 20 ALT 19 (7-52) U/L Alkaline Phosphatase 81 (34-104) U/L Albumin 3.2 L (3.4-5.0) gm/dl Medications Administered Current Inpatient Medications Allopurinol (Allopurinol 100 Mg Tab) 200 mg PO Q2D@0900 [facility] Stop: 08/07/23 15:29 Last Admin: 07/10/23 08:54 Dose: 200 mg Aspirin (Aspirin 81 Mg Chew) 81 mg PO MoWeFr@0900 [facility] Stop: 08/08/23 08:59 Last Admin: 07/09/23 09:07 Dose: 81 mg Dextrose (Dextrose 50% 50 Ml Syringe) 25 - 50 ml IV UD PRN; Protocol PRN Reason: Hypoglycemia Protocol Stop: 08/07/23 15:14 Furosemide (Furosemide 40 Mg/4 Ml Vial) 40 mg IV [id number] RONAN Stop: 08/07/23 16:59 Last Admin: 07/10/23 08:57 Dose: 40 mg Glucagon (Glucagon For Inj 1 Mg Vial) 1 mg SQ UD PRN; Protocol PRN Reason: Hypoglycemia Protocol Stop: 08/07/23 15:14 Glucose (Glucose 10 Tab/Tube) 4 - 8 tab PO UD PRN; Protocol PRN Reason: Hypoglycemia Treatment Stop: 08/07/23 15:14 Glucose (Glucose 40% Gel 15 Gm Tube) 15 - 30 gm PO UD PRN; Protocol PRN Reason: Hypoglycemia Protocol Stop: 08/07/23 15:14 Insulin Aspart (Insulin Aspart Per Unit Charge) 0 units SC ACHS RONAN Stop: 08/07/23 16:29 Last Admin: 07/10/23 12:27 Dose: 4 units Insulin Glargine (Lantus Per Unit Charge) 10 units SQ HS [facility] Stop: 08/07/23 20:59 Last Admin: 07/09/23 20:45 Dose: 10 units Magnesium Oxide (Magnesium Oxide 400 Mg Tab) 400 mg PO BID [facility] Stop: 08/07/23 15:29 Last Admin: 07/10/23 08:55 Dose: 400 mg Metoprolol Succinate (Metoprolol Succ 50mg Ext Rel Tab) 100 mg PO BID [facility] Stop: 08/07/23 20:59 Last Admin: 07/10/23 08:55 Dose: 100 mg Miscellaneous (Carbohydrates For Hypoglycemia ) 15 - 30 gm PO UD PRN PRN Reason: Hypoglycemia Protocol Stop: 08/07/23 15:14 Prednisone (Prednisone 10 Mg Tablet) 30 mg PO DAILY RONAN; Taper Stop: 07/27/23 15:29 Last Admin: 07/10/23 08:55 Dose: 30 mg Spironolactone (Spironolactone 12.5 Mg Tab) 12.5 mg PO DAILY RONAN Stop: 08/08/23 08:59 Last Admin: 07/10/23 08:56 Dose: 12.5 mg (1) CHF exacerbation Heart failure type: diastolic Qualified Code(s): I50.33 - Acute on chronic diastolic (congestive) heart failure (6) Atrial fibrillation Atrial fibrillation type: persistent (not longstanding) Qualified Code(s): I48.19 - Other persistent atrial fibrillation
[2023-07-11 07:05] LABS: Calcium 9.6 mg/dl (8.6-10.3); Magnesium 1.9 mg/dl (1.7-2.4); Potassium 3.6 mmol/L (3.5-5.1)
[2023-07-11 07:11] LABS: BUN Creatinine Ratio 43.2 (10-20); Creatinine Clr Calc Pharmacy 51.1 ml/min; Est GFR (African American) 65.3 ml/min; Est GFR (Non-African American) 56.3 ml/min; Phosphorus 2.8 mg/dl (2.5-4.9)
[2023-07-11 07:33] LABS: INR 3.3 (0.9-1.1); Prothrombin Time 33.5 Seconds (9.0-12.0)
[2023-07-11] MEDS: ACETAMINOPHEN 500 MG TAB PO PRN (11:03)
--- NOTE | 2023-07-11 14:18 | Hospitalist Progress Note ---
Date of Service July 11, 2023 Assessment & Plan (1) CHF exacerbation: (2) Elevated troponin I level: (3) Elevated lactic acid level: (4) Splenic infarct: (5) half-way current use of anticoagulant: (6) Atrial fibrillation: (7) Supratherapeutic INR: (8) DM2 (diabetes mellitus, type 2): (9) Gout: (10) Osteoarthritis: (11) Presence of IVC filter: Plan Pt is an 83yoM with PMHx significant for DMII, paroxysmal A-fib, chronic diastolic heart failure, mitral valve stenosis, aortic valvular replacement with mechanical valve on warfarin, CAD, glaucoma, hypertension, pulmonary hypertension, hyperlipidemia, recent hospitalization 06/20/23-06/24/23 for COVID 19 pneumonia who presented with SOB in the setting of acute on chronic CHF and recent covid-19 infection. Acute on Chronic CHF Pulmonary Edema Per ED report, on admission pt presented with SOB but was not hypoxic, received oxygen for comfort BNP was elevated at 368 EKG noted atrial fibrillation, hs-trop was elevated at 58.2 CT chestnoted findings suggestive of pulmonary edema, patchy lower lung airspace opacities and known pulmonary nodules Echo from 06/21/2023 noted EF of 60 to 65%, moderate concentric LVH, flattened septum consistent with RV pressure overload, severely dilated left atrium, prosthetic aortic valve, moderate to severe mitral stenosis, mild to moderate mitral regurgitation, tricuspid regurgitation, right ventricular systolic pressure more than 60 mmHg. Received IV Lasix 40 mg in the ER, it was continued at twice daily dosing. Cardiology consulted, appreciate recs -continue IV Lasix 40mg BID, spironolactone @ 25mg daily -monitor electrolytes and renal function COVID-19 virus infection Generalized Weakness Initial positive test on 06/20/2023 repeat testing on admission positive as well Stated he had 2 days of cough and increasing shortness of breath with lower extremity swelling CT chest as above with also noted patchy lower lung airspace opacities Has profound weakness in this setting Oxygen supplementation as needed, wean as tolerated PT/OT-appreciate recs, recommending rehab Elevated troponin I level hs-Trop was elevated at 58.2 and peaked at 77.1 Confirm downtrended with AM level EKG showed AFib and nonspecific T wave changes Tele monitor Cardiology consulted as above, doubt ACS, likely demand Atrial Fibrillation Pt with known Hx EKG noted atrial fibrillation Continue home Metoprolol Succinate 100mg BID Anticoagulated with warfarin Mechanical valve in situ Supratherapeutic INR Pt with bioprosthetic aortic valve Anticoagulated with warfarin INR supratherapeutic on admission Question of differing INR goals in outpatient records based on pt's bleeding Hx Per Cardiology this admission, INR goal of 2.5-3.5. 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 Continue ASA 81mg at home dose Thrombocytopenia Recent decrease in platelet level Uncertain etiology at this time Peripheral smear pending Pulmonary Nodules Noted on CT chest, with radiology noting that they are unchanged from the imag ing in Apr 2023. They also note that the nodules "remain indeterminate. A chest CT in 6 months to ensure continued stability is recommended." Dysphagia Aspiration Pt with reported swallowing difficulty. Had video swallow with speech that noted aspiration with liquids Per speech, pt choosing to continue oral intake despite risk, "permissive aspira tion" status Speech advising to consider ENT follow up for dysphagia/dysphonia Constipation CT abd/pelvis with moderate stool burden Scheduled colace with prn miralax DM2 (diabetes mellitus, type 2) Son reports patient usually eats breakfast and dinner He gives him Novolog 15U with meals with extra 1 unit for every 25 above blood glucose of 120mg as well as levemir 10U HS HbA1c 7.3 in Apr 2023 Hold home metformin Lantus 10U HS ISS Accucheck AC and HS Possible temporal arteritis Pt currently on prednisone taper at 30mg daily Continue with pcp and rheumatology follow up Gout Continue home allopurinol Hypomagnesemia Continue mag supplements Osteoarthritis Continue Tylenol prn DVT ppx: On warfarin, goal INR 2.5-3.5 due to mech valve Diet: DMII/HH/Low sodium, easy to chew CODE STATUS: Full code Dispo: PT recommending rehab Admission and Anticipated Discharge Date Admission Date: July 08, 2023 Subjective Pt seen in the AM. States that he had multiple requests. Wanted to get out of bed and noted that PT /OT would be by to work with him. Stated that he was thirsty and requesting Tylenol for abdominal pain. States that the abdominal pain is diffuse. Denies associated diarrhea, N/V. States that he gets lower extremity swelling. Review of Systems Review of Systems: All systems reviewed & are unremarkable except as noted in Subjective Physical Exam Physical Exam: General: Alert, oriented. No acute distress laying in bed, blind Psych: Appropriate mood and affect HEENT: NC/AT Chest: Nontender to palpation. CV: Irregular Resp: Breath sounds clear bilaterally, no increased effort of breathing. Abdomen: Soft, nontender Extremities: edema in lower extremities bilaterally. Results & Data Results & Data Vital Signs (Past 12 Hours) Vital Signs Temp Pulse Pulse Resp BP Pulse Ox O2 Del Method 07/11/23 11:57 36.8 C 92 H 18 98/68 L 99 Nasal Cannula 07/11/23 09:17 Nasal Cannula 07/11/23 08:00 87 07/11/23 07:43 36.9 C 89 19 123/69 98 Nasal Cannula 07/11/23 03:00 36.5 C 80 21 122/78 100 Nasal Cannula O2 Flow Rate 07/11/23 11:57 1.5 07/11/23 09:17 1 07/11/23 08:00 07/11/23 07:43 1.5 07/11/23 03:[address] 07/08/23 08:29 CT OF THE CHEST WITHOUT IV CONTRAST CLINICAL HISTORY: sob, ?CHF COMPARISON STUDY: Chest CT April 21, 2023. Chest radiograph June 20, 2023. TECHNIQUE: Axial images of the chest were obtained without IV contrast. Images were reviewed in the axial, sagittal, and coronal planes. IV contrast was not administered for this examination. Automated exposure control was utilized for the study. A dose lowering technique was utilized adhering to the principles of ALARA. FINDINGS: No enlarged axillary, mediastinal or hilar lymph nodes are present. Multiple thyroid nodules are similar to prior CT. There is mild cardiomegaly and extensive coronary artery calcification. Extensive mitral annular calcification is noted. There is a prosthetic aortic valve. There is no pericardial effusion. No pneumothorax or pleural effusion is present. Multiple solid noncalcified pulmonary nodules are unchanged since chest CT of April 21, 2023. The largest is a 7 mm left upper lobe nodule on image 51 of 249. There are mild groundglass opacities with mosaic attenuation within the lungs. Subtle interlobular septal thickening is present. There are patchy lower lung airspace opacities. No confluent consolidation. No central obstructing mass is present. Abdomen and pelvis CT will be reported separately. IMPRESSION: 1. Subtle groundglass opacities and interlobular septal thickening. The findings favor a mild pulmonary edema. 2. Mild lower lung scattered opacities which could reflect atelectasis, scarring or a superimposed infectious process. 3. No change in multiple pulmonary nodules since chest CT of April 21, 2023. These remain indeterminate. A chest CT in 6 months to ensure continued stability is recommended. ACT 112: Negative or not required by law. Electronically signed by: Anurag Pandey M.D. 07/08/2023 10:08 AM Abdomen/Pelvis CT 07/08/23 08:48 CT OF THE ABDOMEN AND PELVIS WITHOUT CONTRAST CLINICAL HISTORY: mild diffuse pain, sob, swelling COMPARISON STUDY: CT of the abdomen and pelvis April 22, 2023. TECHNIQUE: Axial images of the abdomen and pelvis were obtained without IV contrast. Images were reviewed in the axial, sagittal, and coronal planes. Automated exposure control was utilized for the study. A dose lowering technique was utilized adhering to the principles of ALARA. FINDINGS: Please note that the chest CT will be reported separately. No pneumatosis, free air or portal venous gas is present. No renal, ureteral or bladder calculi are present. There is no hydronephrosis. Evaluation of the remainder of the abdomen and pelvis is suboptimal on this unenhanced exam. There is no biliary ductal dilatation status post cholecystectomy. There is bilateral gynecomastia. Liver, adrenal glands and pancreas are unremarkable. A 4.3 x 2.2 cm hypodense focus within the superior aspect of the spleen is new since prior CT. There is no evidence for a bowel obstruction. There is a moderate amount st ool within the rectum. No bowel wall thickening is identified on unenhanced exam. The appendix is normal. There is no lymphadenopathy. IVC filter is in place. Right hip arthroplasty is intact. No acute fractures within the visualized skeletal structures are present. Water attenuation left renal lesion favors a cyst. IMPRESSION: 1. 4.3 x 2.2 cm hypodense focus within the spleen. This represents an age indeterminate splenic infarct however is new since CT of April 22, 2023. 2. No urinary calculi. No hydronephrosis. 3. No bowel obstruction. ACT 112: Negative or not required by law. Electronically signed by: Anurag Pandey M.D. 07/08/2023 10:18 AM Videofluoroscopic Swallow 07/09/23 14:00 MODIFIED BARIUM SWALLOW CLINICAL HISTORY: r/o aspiration COMPARISON STUDY: None. FLUOROSCOPY TIME: 2.36 minutes. Kanancy: 12 mGy. TECHNIQUE: A modified barium swallow was performed in conjunction with Speech Pathology. The patient ingested varying consistencies of barium containing material. Video fluoroscopy was performed. FINDINGS: There were multiple episodes of tracheal aspiration with thin liquids and nectar thick liquids. Premature spillage was noted with diminished epiglottic inversion and laryngeal elevation. There was passive opening of the upper esophageal sphincter. Moderate retention within the vallecula and piriform sinuses was noted with multiple consistencies. No tracheal aspiration was identified with pudding or cracker in pudding consistencies. Residuals were noted with these consistencies. IMPRESSION: 1. Multiple episodes of tracheal aspiration with thin liquids and nectar thick liquids. Impaired swallowing mechanism with diminished epiglottic inversion and laryngeal elevation. Passive opening of the upper esophageal sphincter. 2. Moderate residuals with multiple consistencies. 3. Full recommendations by Speech pathology to follow. ACT 112: Negative or not required by law. Electronically signed by: Anurag Pandey M.D. 07/09/2023 3:20 PM (1) CHF exacerbation Heart failure type: diastolic Qualified Code(s): I50.33 - Acute on chronic diastolic (congestive) heart failure (6) Atrial fibrillation Atrial fibrillation type: persistent (not longstanding) Qualified Code(s): I48.19 - Other persistent atrial fibrillation
[2023-07-11] MEDS: DOCUSATE SODIUM 100 MG CAP PO SCH (15:58)
[2023-07-11] MEDS: WARFARIN SOD 2 MG TAB PO SCH (15:58)
--- NOTE | 2023-07-11 16:28 | Cardiology Progress Note ---
Date of Service July 11, 2023 Assessment & Plan (1) Diastolic heart failure due to valvular disease: (2) Permanent atrial fibrillation: (3) Pneumonia due to COVID-19 virus: (4) Splenic infarct: Plan IMPRESSION: Medically complex 83 year old male admitted with acute on chronic HFpEF Longstanding history of Paroxysmal/persistent atrial fibrillation, Aortic stenosis s/p [facility] mechanical AVR, severe mitral stenosis, and pulmonary HTN. PLAN: 1. Acute on chronic diastolic Heart failure due to valvular disease -Echocardiogram as noted. Known history of severe mitral stenosis as well as aortic stenosis s/p Mechanical AVR in Jun 2006 ([facility]). No significant changes. -Patient reports improvement in symptoms today, but continues to demonstrate mild volume overload. -Exacerbation possible in the setting of dietary indiscretions, steroid taper use (prior covid-PNA), and de-escalation of diuretics last admission. n. 2. Persistent atrial fibrillation: -Known history of A-fib, currently rate controlled, 80-low 100s. continue Toprol xl. 3. 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 07/11/2023 In addition to above we will increase spironolactone to 25 mg daily Likely switch IV furosemide to oral torsemide in a.m. Admission and Anticipated Discharge Date Admission Date: July 08, 2023 Subjective Patient was seen and examined, chart, medications, telemetry reviewed. Slightly more comfortable today less edema lower extremities. Blood pressure trending slightly lower. Son notes improved after recent hospitalization only to have relapse despite increased diuretic dosing as outpatient Review of Systems Review of Systems: All systems reviewed & are unremarkable except as noted in Subjective Physical Exam Constitutional: + ill appearing; no acute distress Neck: normal visual inspection and trachea midline Respiratory: normal respiratory effort Auscultation: + rales; no rhonchi Cardiovascular: Rate/Rhythm: + irregularly irregular Heart Sounds: normal S1, normal S2 and + murmur (+3/6 systolic murmur) Vessels: no JVD Ex tremities: + edema (+1 BLLE pitting edema, compression socks in place ) Results & Data Vital Signs (Past 12 Hours) Vital Signs Temp Pulse Pulse Resp BP Pulse Ox O2 Del Method 07/11/23 16:00 92 H 07/11/23 11:57 36.8 C 92 H 18 98/68 L 99 Nasal Cannula 07/11/23 09:17 Nasal Cannula 07/11/23 08:00 87 07/11/23 07:43 36.9 C 89 19 123/69 98 Nasal Cannula O2 Flow Rate 07/11/23 16:00 07/11/23 11:57 1.5 07/11/23 09:17 1 07/11/23 08:00 07/11/23 07:43 1.5 Laboratory Results Laboratory Results - last 24 hr 07/10/23 07/10/23 07/11/23 16:30 20:15 05:43 PT 33.5 H INR 3.3 H Sodium 139 Potassium 3.6 Chloride 98 Carbon Dioxide 34 H Anion Gap 7 BUN 51 H Creatinine 1.18 Est Cr Clr Drug Dosing 51.1 Est GFR ( Amer) 65.3 Est GFR (Non-Af Amer) 56.3 BUN/Creatinine Ratio 43.2 H Glucose 161 H POC Glucose 162 H 186 H Calcium 9.6 Phosphorus 2.8 Magnesium 1.9 07/11/23 07/11/23 07:37 11:50 PT INR Sodium Potassium Chloride Carbon Dioxide Anion Gap BUN Creatinine Est Cr Clr Drug Dosing Est GFR ( Amer) Est GFR (Non-Af Amer) BUN/Creatinine Ratio Glucose POC Glucose 152 H 212 H Calcium Phosphorus Magnesium (1) Diastolic heart failure due to valvular disease Heart failure chronicity: acute on chronic Qualified Code(s): I50.33 - Acute on chronic diastolic (congestive) heart failure; I38 - Endocarditis, valve unspecified
[2023-07-12 06:30] LABS: Hematocrit (blood only) 41.9 % (42.0-52.0); Hemoglobin 13.1 g/dl (14.0-18.0); Mean Corpuscular Hemoglobin 27.8 pg (25.0-34.0); Mean Corpuscular Hgb Conc 31.3 g/dL (32.0-36.0); Mean Platelet Volume 12.8 fL (9.4-12.4); Platelet Count 106 K/uL (130-400); RDW Coefficient of Variation 18.8 % (11.5-14.5); RDW Standard Deviation 61.8 fL (36.4-46.3); Red Blood Count 4.71 M/uL (4.70-6.10)
[2023-07-12 06:40] LABS: BUN Creatinine Ratio 43.9 (10-20); Calcium 9.8 mg/dl (8.6-10.3); Creatinine Clr Calc Pharmacy 51.9 ml/min; Est GFR (African American) 68.1 ml/min; Est GFR (Non-African American) 58.7 ml/min; Phosphorus 2.9 mg/dl (2.5-4.9); Potassium 3.7 mmol/L (3.5-5.1)
[2023-07-12 06:51] LABS: INR 2.5 (0.9-1.1); Prothrombin Time 26.3 Seconds (9.0-12.0)
[2023-07-12 06:52] LABS: Troponin I High Sensitivity 59.4 pg/ml (0-20)
[2023-07-12] MEDS: SPIRONOLACTONE 25 MG TAB PO SCH (08:15)
--- NOTE | 2023-07-12 08:44 | Cardiology Progress Note ---
Date of Service July 12, 2023 Assessment & Plan (1) Diastolic heart failure due to valvular disease: (2) Permanent atrial fibrillation: (3) Pneumonia due to COVID-19 virus: (4) Splenic infarct: Plan IMPRESSION: Medically complex 83 year old male admitted with acute on chronic HFpEF Longstanding history of Paroxysmal/persistent atrial fibrillation, Aortic stenosis s/p [facility] mechanical AVR, severe mitral stenosis, and pulmonary HTN. PLAN: 1. Acute on chronic diastolic Heart failure due to valvular disease -Echocardiogram as noted. Known history of severe mitral stenosis as well as aortic stenosis s/p Mechanical AVR in Jun 2006 ([facility]). No significant changes. -Patient reports improvement in symptoms today, but volume status approaching euvolemia -Exacerbation possible in the setting of dietary indiscretions, steroid taper use (prior covid-PNA), and de-escalation of diuretics last admission. -Continue increased dose of Aldactone, 25 mg daily -DC IV Lasix 40 mg BID, transition to Torsemide 40 mg BID. -Potassium 3.7, supplemented with 40 meq of KCL this am 2. Persistent atrial fibrillation: -Known history of A-fib, currently rate controlled, 80-low 100s. Continue Toprol xl. 3. 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 Admission and Anticipated Discharge Date Admission Date: July 08, 2023 Supervising Physician Co-Signing Physician Notes Chart and patient reviewed assessment and plan as well outlined above. Plan to transition IV furosemide to oral torsemide, supplement potassium Subjective Medically complex 83 year old male admitted with acute on chronic HFpEF Longstanding history of Paroxysmal/persistent atrial fibrillation, Aortic stenosis s/t mechanical AVR, severe mitral stenosis, and pulmonary HTN. Upon entrance into the room patient resting in bed. Feels clinically improved. No longer requiring supplemental o2. No chest pain. Mild LARRY, but overall subjectively improved. No orthopnea or PND. Lower extremity edema minimal. No palpitations, lightheadedness or dizziness. Telemetry: AFIB 90s-low 100s Labs: Creatinine improved and stable with diuresis. INR 2.5 I&O: -6.1 L total Weight: 79.3 >>76.1 kg Review of Systems Review of Systems: All systems reviewed & are unremarkable except as noted in HPI & below Physical Exam Constitutional: WD/WN, vitals as above + ill appearing; no acute distress Neck: normal visual inspection and trachea midline Respiratory: normal respiratory effort; no cough and not tachypneic Auscu ltation: + diminished lung sounds; no rales, no rhonchi and no wheezes Cardiovascular: Rate/Rhythm: regular rate and + irregularly irregular Heart Sounds: normal S1, normal S2 and + murmur (+3/6 systolic murmur) Vessels: no JVD Extremities: + edema (Trace BLLE pitting edema) Gastrointestinal (Abdomen): normal bowel sounds, soft, nontender, no hepatosplenomegaly Skin: no rashes, warm and dry Psychiatric: Orientation: alert and oriented x 3 Results & Data Vital Signs (Past 12 Hours) Vital Signs Temp Pulse Resp BP Pulse Ox O2 Del Method O2 Flow Rate 07/12/23 07:41 36.5 C 95 H 22 114/74 96 Room Air 07/12/23 02:32 36.4 C L 78 18 117/83 94 Room Air 0 07/11/23 23:00 36.6 C 85 25 H 108/76 95 Room Air 07/11/23 20:40 Room Air 0 Laboratory Results Cardiac Enzymes 07/12/23 Range/Units 05:57 Troponin I High Sens 59.4 H* (0-20) pg/ml Coagulation 07/12/23 Range/Units 05:57 PT 26.3 H (9.0-12.0) Seconds CBC 07/12/23 Range/Units 05:57 WBC 9.70 (4.8-10.8) K/ul RBC 4.71 (4.70-6.10) M/uL Hgb 13.1 L (14.0-18.0) g/dl Hct 41.9 L (42.0-52.0) % Plt Count 106 L (130-400) K/uL Comprehensive Metabolic Panel 07/12/23 Range/Units 05:57 Sodium 139 (136-145) mmol/L Potassium 3.7 (3.5-5.1) mmol/L Chloride 99 (98-107) mmol/L Carbon Dioxide 33 H (21-32) mmol/L BUN 50 H (6-23) mg/dl Creatinine 1.14 (0.6-1.4) mg/dl Glucose 177 H (70-99(Fasting)) mg/dl Calcium 9.8 (8.6-10.3) mg/dl Intake and Output 07/11/23 07/12/23 07/12/23 22:59 06:59 14:59 Intake Total 660 / 660 Output Total 1225 / 1600 375 / 1600 Balance -565 / -940 -375 / -940 Intake: Oral 660 / 660 Output: Urine Amount (Catheter) 1225 / 1600 375 / 1600 Harper/Indwelling 1225 / 1600 375 / 1600 # Bowel Movements 0 / 0 Other: Weight 76.1 kg Weight Measurement Method Built in [facility] (1) Diastolic heart failure due to valvular disease Heart failure chronicity: acute on chronic Qualified Code(s): I50.33 - Acute on chronic diastolic (congestive) heart failure; I38 - Endocarditis, valve unspecified
[2023-07-12] MEDS: POTASSIUM CHLORIDE CRTAB 20 MEQ TABCR PO STA (11:17)
--- NOTE | 2023-07-12 16:24 | Hospitalist Progress Note ---
Date of Service July 12, 2023 Assessment & Plan (1) CHF exacerbation: (2) Elevated troponin I level: (3) Elevated lactic acid level: (4) Splenic infarct: (5) care home current use of anticoagulant: (6) Atrial fibrillation: (7) Supratherapeutic INR: (8) DM2 (diabetes mellitus, type 2): (9) Gout: (10) Osteoarthritis: (11) Presence of IVC filter: Plan Pt is an 83yoM with PMHx significant for DMII, paroxysmal A-fib, chronic diastolic heart failure, mitral valve stenosis, aortic valvular replacement with mechanical valve on warfarin, CAD, glaucoma, hypertension, pulmonary hypertension, hyperlipidemia, recent hospitalization 06/20/23-06/24/23 for COVID 19 pneumonia who presented with SOB in the setting of acute on chronic CHF and recent covid-19 infection. Acute on Chronic CHF Pulmonary Edema Per ED report, on admission pt presented with SOB but was not hypoxic, received oxygen for comfort BNP was elevated at 368 EKG noted atrial fibrillation, hs-trop was elevated at 58.2 CT chestnoted findings suggestive of pulmonary edema, patchy lower lung airspace opacities and known pulmonary nodules Echo from 06/21/2023 noted EF of 60 to 65%, moderate concentric LVH, flattened septum consistent with RV pressure overload, severely dilated left atrium, prosthetic aortic valve, moderate to severe mitral stenosis, mild to moderate mitral regurgitation, tricuspid regurgitation, right ventricular systolic pressure more than 60 mmHg. Received IV Lasix 40 mg in the ER, it was continued at twice daily dosing. Cardiology consulted, appreciate recs -continue spironolactone @ 25mg daily, IV Lasix transitioned to po torsemide 40mg BID -monitor electrolytes and renal function COVID-19 virus infection Generalized Weakness Initial positive test on 06/20/2023 repeat testing on admission positive as well Stated he had 2 days of cough and increasing shortness of breath with lower extremity swelling CT chest as above with also noted patchy lower lung airspace opacities Has profound weakness in this setting Oxygen supplementation as needed, wean as tolerated PT/OT-appreciate recs, recommending rehab Elevated troponin I level hs-Trop was elevated at 58.2 and peaked at 77.1 Confirm downtrended with AM level EKG showed AFib and nonspecific T wave changes Tele monitor Cardiology consulted as above, doubt ACS, likely demand Atrial Fibrillation Pt with known Hx EKG noted atrial fibrillation Continue home Metoprolol Succinate 100mg BID Anticoagulated with warfarin, follow INR [facility] Mechanical valve in situ Supratherapeutic INR Pt with bioprosthetic aortic valve Anticoagulated with warfarin INR supratherapeutic on admission Question of differing INR goals in outpatient records based on pt's bleeding Hx Per Cardiology this admission, INR goal of 2.5-3.5. 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 They also note that the nodules "remain indeterminate. A chest CT in 6 months to ensure continued stability is recommended." Dysphagia Aspiration Pt with reported swallowing difficulty. Had video swallow with speech that noted aspiration with liquids Per speech, pt choosing to continue oral intake despite risk, "permissive aspiration" status Speech advising to consider ENT follow up for dysphagia/dysphonia Constipation CT abd/pelvis with moderate stool burden Scheduled colace with prn miralax DM2 (diabetes mellitus, type 2) Son reports patient usually eats breakfast and dinner He gives him Novolog 15U with meals with extra 1 unit for every 25 above blood glucose of 120mg as well as levemir 10U HS HbA1c 7.3 in Apr 2023 Hold home metformin Lantus 10U HS ISS Accucheck AC and HS Possible temporal arteritis Pt currently on prednisone taper at 30mg daily Continue with pcp and rheumatology follow up Gout Continue home allopurinol Hypomagnesemia Continue mag supplements Osteoarthritis Continue Tylenol prn DVT ppx: On warfarin, goal INR 2.5-3.5 due to mech valve Diet: DMII/HH/Low sodium, easy to chew CODE STATUS: Full code Dispo: PT recommending rehab Admission and Anticipated Discharge Date Admission Date: July 08, 2023 Subjective Was sitting on bedside commode. Noted that his bowels were now moving, less abdominal pain. No other acute concerns. Review of Systems Review of Systems: All systems reviewed & are unremarkable except as noted in Subjective Physical Exam Physical Exam: General: Alert, oriented. 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 CV: Irregular Resp: Breath sounds clear bilaterally, no increased effort of breathing. Abdomen: Soft, nontender Extremities: edema in lower extremities bilaterally. Results & Data Results & Data Vital Signs (Past 12 Hours) Vital Signs Temp Pulse Resp BP Pulse Ox O2 Del Method O2 Del Method 07/12/23 16:00 36.8 C 84 18 119/67 98 Room Air 07/12/23 11:30 36.6 C 97 H 20 106/63 96 Room Air 07/12/23 08:00 Room Air 07/12/23 08:00 Room Air 07/12/23 07:41 36.5 C 95 H 22 114/74 96 Room Air (1) CHF exacerbation Heart failure type: diastolic Qualified Code(s): I50.33 - Acute on chronic diastolic (congestive) heart failure (6) Atrial fibrillation Atrial fibrillation type: persistent (not longstanding) Qualified Code(s): I48.19 - Other persistent atrial fibrillation
[2023-07-12] MEDS: DIGOXIN 0.125 MG TAB PO ONE (16:59)
[2023-07-12] MEDS: POLYETHYLENE (MIRALAX) 17 GM PACK PO PRN (16:59)
[2023-07-12] MEDS: TORSEMIDE 10 MG TAB PO SCH (17:00)
[2023-07-13 06:22] LABS: BUN Creatinine Ratio 43.2 (10-20); Calcium 9.9 mg/dl (8.6-10.3); Creatinine Clr Calc Pharmacy 49.6 ml/min; Est GFR (African American) 65.3 ml/min; Est GFR (Non-African American) 56.3 ml/min; Phosphorus 2.8 mg/dl (2.5-4.9); Potassium 4.3 mmol/L (3.5-5.1)
[2023-07-13 06:27] LABS: INR 2.1 (0.9-1.1); Prothrombin Time 21.9 Seconds (9.0-12.0)
--- NOTE | 2023-07-13 07:18 | Cardiology Progress Note ---
Date of Service July 13, 2023 Assessment & Plan (1) Diastolic heart failure due to valvular disease: (2) Permanent atrial fibrillation: (3) Pneumonia due to COVID-19 virus: (4) S/P AVR: (5) correction current use of anticoagulant: Plan IMPRESSION: Medically complex 83 year old male admitted with acute on chronic HFpEF Longstanding history of Paroxysmal/persistent atrial fibrillation, Aortic stenosis s/p [facility] mechanical AVR, severe mitral stenosis, and pulmonary HTN. PLAN: 1. Acute on chronic diastolic Heart failure due to valvular disease -Echocardiogram as noted. Known history of severe mitral stenosis as well as aortic stenosis s/p Mechanical AVR in Jun 2006 ([facility]). No significant changes. -Patient reports improvement in symptoms today, but volume status approaching euvolemia. O2 sats mid 90s on RA. -Exacerbation possible in the setting of dietary indiscretions, steroid taper use (prior covid-PNA), and de-escalation of diuretics last admission. -Continue increased dose of Aldactone 25 mg daily at discharge -Renal function remains stable- continue Torsemide 40 mg BID at discharge. 2. Persistent atrial fibrillation: -Known history of A-fib, currently rate controlled, 80-low 100s. -Continue Toprol xl 100 mg BID at discharge. -Given x1 dose of Digoxin 0.25 mg yesterday (07/12). Continue Digoxin 0.125 mg MWF Only at discharge. Needs a repeat Digoxin level in 10 days post DC. 3. S/p mechanical AVR -Coumadin INR goal of 2.5-3.5 (INR 2.1 this am)-- Coumadin was resumed 07/11/2023, titrate for INR goal. Case discussed with Dr. Park. I spent a total of 20 minutes on the date of service in preparation, delivery, and documentation of the care provided to the patient excluding any time spent in the performance of separately billed services. JESI Cervantes Department of Cardiology, [facility] This chart was completed in part utilizing Speech Voice Recognition Software. Grammatical errors, random word insertions, pronoun errors, and incomplete sentences are an occasional consequence of this system due to software limitations, ambient noise, and hardware issues. Any formal questions or concerns about the content, text, or information contained within the body of this dictation should be directly addressed to the provider for clarification. Admission and Anticipated Discharge Date Admission Date: July 08, 2023 Supervising Physician Co-Signing Physician Notes Patient was seen and telemetry reviewed. Assessment and plan as outlined above Acute on chronic congestive heart failure secondary to valvular disease improving. Will transition to oral regimen. Persistent atrial fibrillation remains present with mildly elevated rates digoxin added to medical regimen No further recommendations Subjective Medically complex 83 year old male admitted with acute on chronic HFpEF Longstanding history of Paroxysmal/persistent atrial fibrillation, Aortic stenosis s/t mechanical AVR, severe mitral stenosis, and pulmonary HTN. Upon entrance into the room patient resting in bed. Feels clinically improved. No longer requiring supplemental o2. Becomes mildly dyspnea when trying to have a bowel movement. No orthopnea or PND. Lower extremity edema minimal. No chest pain. No palpitations, lightheadedness or dizziness. States that he feels very weak. Has a bed at [facility]. Telemetry: AFIB 80-90s Labs: Creatinine improved and stable with diuresis. INR 2.1 I&O: -6.5 L total Weight: 79.3 >>75.2 kg Review of Systems Review of Systems: All systems reviewed & are unremarkable except as noted in HPI & below Physical Exam Constitutional: WD/WN, vitals as above no acute distress Neck: normal visual inspection and trachea midline Respiratory: normal respiratory effort; no cough and not tachypneic Auscultation: + diminished lung sounds; no rales, no rhonchi and no wheezes Cardiovascular: Rate/Rhythm: regular rate and + irregularly irregular Heart Sounds: normal S1, normal S2 and + murmur (+3/6 systolic murmur) Vessels: no JVD Extremities: + edema (Trace BLLE pitting edema) Gastrointestinal (Abdomen): normal bowel sounds, soft, nontender, no hepatosplenomegaly Skin: no rashes, warm and dry Psychiatric: Orientation: alert and oriented x 3 Results & Data Vital Signs (Past 12 Hours) Vital Signs Temp Pulse Resp BP Pulse Ox Pulse Ox O2 Del Method 07/13/23 03:33 37.3 C 77 18 103/83 93 Room Air 07/13/23 00:00 94 07/12/23 22:39 37.5 C 80 18 119/82 97 Room Air 07/12/23 20:00 36.5 C 81 19 111/81 Room Air O2 Del Method 07/13/23 03:33 07/13/23 00:00 Room Air 07/12/23 22:39 07/12/23 20:00 Laboratory Results Coagulation 07/13/23 Range/Units 05:44 PT 21.9 H (9.0-12.0) Seconds CBC 07/13/23 Range/Units 05:44 WBC 9.83 (4.8-10.8) K/ul RBC 4.72 (4.70-6.10) M/uL Hgb 13.1 L (14.0-18.0) g/dl Hct 42.1 (42.0-52.0) % Plt Count 88 L (130-400) K/uL Comprehensive Metabolic Panel 07/13/23 Range/Units 05:44 Sodium 139 (136-145) mmol/L Potassium 4.3 (3.5-5.1) mmol/L Chloride 99 (98-107) mmol/L Carbon Dioxide 35 H (21-32) mmol/L BUN 51 H (6-23) mg/dl Creatinine 1.18 (0.6-1.4) mg/dl Glucose 151 H (70-99(Fasting)) mg/dl Calcium 9.9 (8.6-10.3) mg/dl Intake and Output 07/12/23 07/13/23 07/13/23 22:59 06:59 14:59 Intake Total 220 / 1180 Output Total 900 / 1650 750 / 1650 Balance -680 / -470 -750 / -470 Intake: Oral 220 / 1180 Output: Urine Amount (Catheter) 900 / 1650 750 / 1650 Harper/Indwelling 900 / 1650 750 / 1650 Other: Weight 75.2 kg Weight Measurement Method Built in [facility] (1) Diastolic heart failure due to valvular disease Heart failure chronicity: acute on chronic Qualified Code(s): I50.33 - Acute on chronic diastolic (congestive) heart failure; I38 - Endocarditis, valve unspecified
[2023-07-13 07:30] LABS: Hematocrit (blood only) 42.1 % (42.0-52.0); Hemoglobin 13.1 g/dl (14.0-18.0); Mean Corpuscular Hemoglobin 27.8 pg (25.0-34.0); Mean Corpuscular Hgb Conc 31.1 g/dL (32.0-36.0); Mean Corpuscular Volume 89.2 fL (80.0-100.0); Mean Platelet Volume 11.3 fL (9.4-12.4); Platelet Count 88 K/uL (130-400); Platelet Estimate Decreased (Normal); RDW Coefficient of Variation 18.9 % (11.5-14.5); RDW Standard Deviation 61.3 fL (36.4-46.3); Red Blood Count 4.72 M/uL (4.70-6.10); White Blood Count 9.83 K/ul (4.8-10.8)
[2023-07-13] MEDS: POTASSIUM CHLORIDE CRTAB 20 MEQ TABCR PO SCH (08:43)
[2023-07-13] MEDS: WARFARIN SOD 2 MG TAB PO ONE (09:38)
--- NOTE | 2023-07-13 13:32 | Hospitalist Progress Note ---
Date of Service July 13, 2023 Assessment & Plan (1) CHF exacerbation: (2) Elevated troponin I level: (3) Elevated lactic acid level: (4) Splenic infarct: (5) detention current use of anticoagulant: (6) Atrial fibrillation: (7) Supratherapeutic INR: (8) DM2 (diabetes mellitus, type 2): (9) Gout: (10) Osteoarthritis: (11) Presence of IVC filter: Plan Pt is an 83yoM with PMHx significant for DMII, paroxysmal A-fib, chronic diastolic heart failure, mitral valve stenosis, aortic valvular replacement with mechanical valve on warfarin, CAD, glaucoma, hypertension, pulmonary hypertension, hyperlipidemia, recent hospitalization 06/20/23-06/24/23 for COVID 19 pneumonia who presented with SOB in the setting of acute on chronic CHF and recent covid-19 infection. Acute on Chronic CHF Pulmonary Edema Per ED report, on admission pt presented with SOB but was not hypoxic, received oxygen for comfort BNP was elevated at 368 EKG noted atrial fibrillation, hs-trop was elevated at 58.2 CT chestnoted findings suggestive of pulmonary edema, patchy lower lung airspace opacities and known pulmonary nodules Echo from 06/21/2023 noted EF of 60 to 65%, moderate concentric LVH, flattened septum consistent with RV pressure overload, severely dilated left atrium, prosthetic aortic valve, moderate to severe mitral stenosis, mild to moderate mitral regurgitation, tricuspid regurgitation, right ventricular systolic pressure more than 60 mmHg. Received IV Lasix 40 mg in the ER, it was continued at twice daily dosing. Cardiology consulted, appreciate recs -continue spironolactone @ 25mg daily, IV Lasix transitioned to po torsemide 40mg BID -monitor electrolytes and renal function COVID-19 virus infection Generalized Weakness Initial positive test on 06/20/2023 repeat testing on admission positive as well Stated he had 2 days of cough and increasing shortness of breath with lower extremity swelling CT chest as above with also noted patchy lower lung airspace opacities Has profound weakness in this setting Oxygen supplementation as needed, wean as tolerated isolation precautions, as pt on immunosuppressive prednisone taper and repeatedly testing positive PT/OT-appreciate recs, recommending rehab Elevated troponin I level hs-Trop was elevated at 58.2 and peaked at 77.1 Confirm downtrended with AM level EKG showed AFib and nonspecific T wave changes Tele monitor Cardiology consulted as above, doubt ACS, likely demand Atrial Fibrillation Pt with known Hx EKG noted atrial fibrillation Continue home Metoprolol Succinate 100mg BID Anticoagulated with warfarin, follow INR ([facility]) Cardiology was consulted as above- appreciate recs 07/13- received digoxin doses the day before. Per Cardiology continue with Digoxin 0.125mg MWF on discharge with repeat digoxin level 10 days after discharge. Mechanical valve in situ Supratherapeutic INR Pt with bioprosthetic aortic valve Anticoagulated with warfarin INR supratherapeutic on admission Question of differing INR goals in outpatient records based on pt's bleeding Hx Per Cardiology this admission, INR goal of 2.5-3.5. Appreciate recs Warfarin previously on hold INR 3.3 on 07/11, warfarin 2mg daily resumed 07/13- additional warfarin dose given to increase INR which is 2.1 Monitor INR, monitor Hgb, monitor for signs of bleeding and hold warfarin as needed Elevated lactic acid level On admission, lactate was elevated at 5.1-->3.6 Elevated lactate likely due to heart failure WBC was borderline at 12K on admission, currently wnl Procal was normal Urine on admission with no signs of infection One Blood Cx from 07/08 grew coag neg staph, likely contaminant Repeat Blood Cx x 2 from 07/10 with NGTD Low suspicion for infection at this time Splenic Infarct Pt with noted splenic infarct on CT abd/pelvis, age indeterminate however per radiology, new from 04/2023 Pt has been anticoagulated on warfarin On 07/11 noting abdominal pain, diffuse CT abd/pelvis also noting moderate stool burden Will continue to monitor abd pain in this setting INR currently within goal Continue ASA 81mg at home dose Thrombocytopenia Recent decrease in platelet level Uncertain etiology at this time Peripheral smear reviewed- consider hematology consult Pulmonary Nodules Noted on CT chest, with radiology noting that they are unchanged from the imaging in Apr 2023. They also note that the nodules "remain indeterminate. A chest CT in 6 months to ensure continued stability is recommended." Dysphagia Aspiration Pt with reported swallowing difficulty. Had video swallow with speech that noted aspiration with liquids Per speech, pt choosing to continue oral intake despite risk, "permissive aspiration" status Speech advising to consider ENT follow up for dysphagia/dysphonia Constipation CT abd/pelvis with moderate stool burden Scheduled colace with prn miralax DM2 (diabetes mellitus, type 2) Son reports patient usually eats breakfast and dinner He gives him Novolog 15U with meals with extra 1 unit for every 25 above blood glucose of 120mg as well as levemir 10U HS HbA1c 7.3 in Apr 2023 Hold home metformin Lantus 10U HS ISS Accucheck AC and HS Possible temporal arteritis Pt currently on prednisone taper at 30mg daily Continue with pcp and rheumatology follow up Gout Continue home allopurinol Hypomagnesemia Continue mag supplements Osteoarthritis Continue Tylenol prn DVT ppx: On warfarin, goal INR 2.5-3.5 due to mech valve Diet: DMII/HH/Low sodium, easy to chew CODE STATUS: Full code Dispo: PT recommending rehab Admission and Anticipated Discharge Date Admission Date: July 08, 2023 Subjective Pt seen while laying in bed. Denied acute concerns. Received digoxin later in the day the day before for higher HR levels. Review of Systems Review of Systems: All systems reviewed & are unremarkable except as noted in Subjective Physical Exam Physical Exam: General: Alert, oriented. 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 CV: Irregular Resp: Breath sounds clear bilaterally, no increased effort of breathing. Abdomen: Soft, nontender Extremities: edema in lower extremities bilaterally. Results & Data Results & Data Vital Signs (Past 12 Hours) Vital Signs Temp Pulse Resp BP Pulse Ox O2 Del Method 07/13/23 11:20 37.2 C 87 20 109/67 93 Room Air 07/13/23 08:00 37.4 C 79 18 111/81 98 Room Air 07/13/23 03:33 37.3 C 77 18 103/83 93 Room Air (1) CHF exacerbation Heart failure type: diastolic Qualified Code(s): I50.33 - Acute on chronic diastolic (congestive) heart failure (6) Atrial fibrillation Atrial fibrillation type: persistent (not longstanding) Qualified Code(s): I48.19 - Other persistent atrial fibrillation
[2023-07-13] MEDS: DIGOXIN 0.125 MG TAB PO SCH (17:31)
--- NOTE | 2023-07-14 06:27 | Cardiology Progress Note ---
Date of Service July 14, 2023 Assessment & Plan (1) Diastolic heart failure due to valvular disease: (2) Permanent atrial fibrillation: (3) Pneumonia due to COVID-19 virus: (4) S/P AVR: (5) FDC current use of anticoagulant: Plan IMPRESSION: Medically complex 83 year old male admitted with acute on chronic HFpEF Longstanding history of Paroxysmal/persistent atrial fibrillation, Aortic stenosis s/p [facility] mechanical AVR, severe mitral stenosis, and pulmonary HTN. PLAN: 1. Acute on chronic diastolic Heart failure due to valvular disease -Echocardiogram as noted. Known history of severe mitral stenosis as well as aortic stenosis s/p Mechanical AVR in Jun 2006 ([facility]). No significant changes. -Patient reports improvement in symptoms today, but volume status approaching euvolemia. O2 sats mid 90s on RA. -Exacerbation possible in the setting of dietary indiscretions, steroid taper use (prior covid-PNA), and de-escalation of diuretics last admission. -Continue increased dose of Aldactone 25 mg daily at discharge -Renal function remains stable- continue Torsemide 40 mg BID at discharge. 2. Persistent atrial fibrillation: -Known history of A-fib, currently rate controlled, 80-low 100s. -Continue Toprol xl 100 mg BID at discharge. -Given x1 dose of Digoxin 0.25 mg (07/12). Digoxin 0.125 mg started 07/13. Continue Digoxin 0.125 mg MWF Only at discharge. Needs a repeat Digoxin level in 10 days post DC. 3. S/p mechanical AVR -Coumadin INR goal of 2.5-3.5 (INR 2.6 this am)-- Coumadin was resumed 07/11/2023, titrate for INR goal. Case discussed with Dr. Chacko. No further recommendations from a cardiology standpoint. Recommend diuretics as stated above at discharge. All of their cardiac medications continued. Please reach out with any further questions or concerns. I spent a total of 30 minutes on the date of service in preparation, delivery, and documentation of the care provided to the patient excluding any time spent in the performance of separately billed services. JESI Cervantes Department of Cardiology, [facility] This chart was completed in part utilizing Speech Voice Recognition Software. Grammatical errors, random word insertions, pronoun errors, and incomplete sentences are an occasional consequence of this system due to software limitations, ambient noise, and hardware issues. Any formal questions or concerns about the content, text, or information contained within the body of this dictation should be directly addressed to the provider for clarification. Admission and Anticipated Discharge Date Admission Date: July 08, 2023 Supervising Physician Co-Signing Physician Notes Attending attestation: I have reviewed the advanced practitioner's documentation, and agree with, and take responsibility for the plan of care. Subjective: Pt complaints of generalized weakness which has been present during this hospital stay. New complaint of constipation. KUB film already ordered by primary service. Exam: CV: irregular rhythm, lungs clear Data: INR 2.6 Telemetry reveals rate controlled AF in the 80s. Impression/ Plan: As noted above. Pt now on oral torsemide 40 mg PO BID and spironolactone 25 mg daily. May not need potassium chloride supplement at discharge given spironolactone. I spent a total of 20 minutes coordinating, documenting, and providing care for this patient excluding time spent in the performance of separately billed services or time spent by another provider. Selvin Chacko, DO Subjective Medically complex 83 year old male admitted with acute on chronic HFpEF Longstanding history of Paroxysmal/persistent atrial fibrillation, Aortic stenosis s/t mechanical AVR, severe mitral stenosis, and pulmonary HTN. Upon entrance into the room patient sitting up in bed eating breakfast. Feels clinically improved. No longer requiring supplemental oxygen. Becomes mildly dyspneic with strenuous activities. No orthopnea or PND. Lower extremity edema resolved. No chest pain. No palpitations, lightheadedness or dizziness. States that he feels very weak. Has a bed at [facility]. Telemetry: AFIB 80s Labs: Creatinine improved and stable with diuresis. Potassium 4.5. INR 2.6. I&O: -8.2 L total Weight: 79.3 >>73.2kg Review of Systems Review of Systems: All systems reviewed & are unremarkable except as noted in HPI & below Physical Exam Constitutional: WD/WN, vitals as above + cachectic; no acute distress Neck: normal visual inspection and trachea midline Respiratory: normal respiratory effort; no cough and not tachypneic Auscultation: + diminished lung sounds; no rales, no rhonchi and no wheezes Cardiovascular: Rate/Rhythm: regular rate and + irregularly irregular Heart Sounds: normal S1, normal S2 and + murmur (+3/6 systolic murmur) Vessels: no JVD Extremities: no edema Gastrointestinal (Abdomen): normal bowel sounds, soft, nontender, no hepatosplenomegaly Skin: no rashes, warm and dry Psychiatric: Orientation: alert and oriented x 3 Results & Data Vital Signs (Past 12 Hours) Vital Signs Temp Pulse Resp BP Pulse Ox Pulse Ox O2 Del Method 07/14/23 03:25 36.4 C L 86 24 112/68 97 Room Air 07/14/23 00:00 94 07/13/23 23:36 36.6 C 81 22 114/85 96 Room Air 07/13/23 20:00 36.5 C 88 18 116/90 97 Room Air O2 Del Method 07/14/23 03:25 07/14/23 00:00 Room Air 07/13/23 23:36 07/13/23 20:00 Laboratory Results Coagulation 07/14/23 Range/Units 05:47 PT 26.8 H (9.0-12.0) Seconds CBC 07/14/23 Range/Units 05:47 WBC 10.13 (4.8-10.8) K/ul RBC 5.04 (4.70-6.10) M/uL Hgb 13.8 L (14.0-18.0) g/dl Hct 44.4 (42.0-52.0) % Plt Count 110 L (130-400) K/uL Comprehensive Metabolic Panel 07/14/23 Range/Units 05:47 Sodium 137 (136-145) mmol/L Potassium 4.5 (3.5-5.1) mmol/L Chloride 95 L (98-107) mmol/L Carbon Dioxide 36 H (21-32) mmol/L BUN 53 H (6-23) mg/dl Creatinine 1.21 (0.6-1.4) mg/dl Glucose 170 H (70-99(Fasting)) mg/dl Calcium 10.2 (8.6-10.3) mg/dl Intake and Output 07/13/23 07/14/23 07/14/23 22:59 06:59 14:59 Intake Total 480 / 960 Output Total 1100 / 2550 1050 / 2550 Balance -620 / -1590 -1050 / -1590 Intake: Oral 480 / 960 Output: Urine 450 / 850 Urine Amount (Catheter) 650 / 1700 1050 / 1700 Harper/Indwelling 650 / 1700 1050 / 1700 Other: Weight 73.2 kg Weight Measurement Method Built in [facility] (1) Diastolic heart failure due to valvular disease Heart failure chronicity: acute on chronic Qualified Code(s): I50.33 - Acute on chronic diastolic (congestive) heart failure; I38 - Endocarditis, valve unspecified
[2023-07-14 06:31] LABS: Hematocrit (blood only) 44.4 % (42.0-52.0); Hemoglobin 13.8 g/dl (14.0-18.0); Mean Corpuscular Hemoglobin 27.4 pg (25.0-34.0); Mean Corpuscular Hgb Conc 31.1 g/dL (32.0-36.0); Mean Corpuscular Volume 88.1 fL (80.0-100.0); Mean Platelet Volume 12.2 fL (9.4-12.4); Platelet Count 110 K/uL (130-400); RDW Coefficient of Variation 18.7 % (11.5-14.5); RDW Standard Deviation 59.8 fL (36.4-46.3); Red Blood Count 5.04 M/uL (4.70-6.10); White Blood Count 10.13 K/ul (4.8-10.8)
[2023-07-14 06:39] LABS: BUN Creatinine Ratio 43.8 (10-20); Calcium 10.2 mg/dl (8.6-10.3); Creatinine Clr Calc Pharmacy 47.1 ml/min; Est GFR (African American) 63.3 ml/min; Est GFR (Non-African American) 54.6 ml/min; Magnesium 2.1 mg/dl (1.7-2.4); Potassium 4.5 mmol/L (3.5-5.1)
[2023-07-14 07:09] LABS: INR 2.6 (0.9-1.1); Prothrombin Time 26.8 Seconds (9.0-12.0)
--- NOTE | 2023-07-14 10:00 | Hospitalist Progress Note ---
Date of Service July 14, 2023 Assessment & Plan (1) CHF exacerbation: (2) Elevated troponin I level: (3) Elevated lactic acid level: (4) Splenic infarct: (5) M[facility] current use of anticoagulant: (6) Atrial fibrillation: (7) Supratherapeutic INR: (8) DM2 (diabetes mellitus, type 2): (9) Gout: (10) Osteoarthritis: (11) Presence of IVC filter: Plan Pt is an 83yoM with PMHx significant for DMII, paroxysmal A-fib, chronic diastolic heart failure, mitral valve stenosis, aortic valvular replacement with mechanical valve on warfarin, CAD, glaucoma, hypertension, pulmonary hypertension, hyperlipidemia, recent hospitalization 06/20/23-06/24/23 for COVID 19 pneumonia who presented with SOB in the setting of acute on chronic CHF and recent covid-19 infection. Acute on Chronic CHF Pulmonary Edema Per ED report, on admission pt presented with SOB but was not hypoxic, received oxygen for comfort BNP was elevated at 368 EKG noted atrial fibrillation, hs-trop was elevated at 58.2 CT chestnoted findings suggestive of pulmonary edema, patchy lower lung airspace opacities and known pulmonary nodules Echo from 06/21/2023 noted EF of 60 to 65%, moderate concentric LVH, flattened septum consistent with RV pressure overload, severely dilated left atrium, prosthetic aortic valve, moderate to severe mitral stenosis, mild to moderate mitral regurgitation, tricuspid regurgitation, right ventricular systolic pressure more than 60 mmHg. Received IV Lasix 40 mg in the ER, it was continued at twice daily dosing. Cardiology consulted, appreciate recs -continue spironolactone @ 25mg daily, IV Lasix transitioned to po torsemide 40mg BID -monitor electrolytes and renal function COVID-19 virus infection Generalized Weakness Initial positive test on 06/20/2023, repeat testing on admission positive as well Stated he had 2 days of cough and increasing shortness of breath with lower extremity swelling CT chest as above with also noted patchy lower lung airspace opacities Has profound weakness in this setting Oxygen supplementation as needed, wean as tolerated- currently on RA isolation precautions, as pt on immunosuppressive prednisone taper and will take longer to get rid of the virus, hence likely why still testing positive PT/OT-appreciate recs, recommending rehab Elevated troponin I level hs-Trop was elevated at 58.2 and peaked at 77.1 and downtrended EKG showed AFib and nonspecific T wave changes Tele monitoring Cardiology consulted as above, doubt ACS, likely demand Atrial Fibrillation Pt with known Hx EKG noted atrial fibrillation Continue home Metoprolol Succinate 100mg BID Anticoagulated with warfarin, follow INR ([facility] Cardiology was consulted as above- appreciate recs 07/13- received digoxin doses the day before. Per Cardiology continue with Digoxin 0.125mg MWF on discharge with repeat digoxin level 10 days after discharge. 07/14- currently rate controlled. Continue Digoxin 0.125mg MWF on discharge with repeat digoxin level 10 days after discharge. Mechanical valve in situ Supratherapeutic INR Pt with bioprosthetic aortic valve Anticoagulated with warfarin INR supratherapeutic on admission Question of differing INR goals in outpatient records based on pt's bleeding Hx Per Cardiology this admission, INR goal of 2.5-3.5. Appreciate recs Warfarin previously on hold INR 3.3 on 07/11, warfarin 2mg daily resumed 07/13- additional warfarin dose given to increase INR which is 2.1 07/14- INR of 2.6 at goal, continue to monitor Monitor INR, monitor Hgb, monitor for signs of bleeding and hold warfarin as needed Elevated lactic acid level On admission, lactate was elevated at 5.1-->3.6 Elevated lactate likely due to heart failure WBC was borderline at 12K on admission, currently wnl Procal was normal Urine on admission with no signs of infection One Blood Cx from 07/08 grew coag neg staph, likely contaminant Repeat Blood Cx x 2 from 07/10 with NGTD Low suspicion for infection at this time 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 Continue to monitor CBC and for signs of bleeding, no further workup needed at this time. Appreciate recs. Pulmonary Nodules Noted on CT chest, with radiology noting that they are unchanged from the imaging in Apr 2023. They also note that the nodules "remain indeterminate. A chest CT in 6 months to ensure continued stability is recommended." Dysphagia Aspiration Pt with reported swallowing difficulty. Had video swallow with speech that noted aspiration with liquids Per speech, pt choosing to continue oral intake despite risk, "permissive aspiration" status Speech advising to consider ENT follow up for dysphagia/dysphonia Constipation CT abd/pelvis with moderate stool burden Scheduled colace with prn miralax 07/14- pt notes persistent abd pain and no BM for about 4 days KUB ordered- noted moderate stool burden, no signs of obstruction and no signs of fecal impaction Miralax ordered TID scheduled until pt has BM DM2 (diabetes mellitus, type 2) Son reports patient usually eats breakfast and dinner He gives him Novolog 15U with meals with extra 1 unit for every 25 above blood glucose of 120mg as well as levemir 10U HS HbA1c 7.3 in Apr 2023 Hold home metformin Lantus 10U HS ISS Accucheck AC and HS Possible temporal arteritis Pt currently on prednisone taper at 30mg daily Continue with pcp and rheumatology follow up Gout Continue home allopurinol Hypomagnesemia Continue mag supplements Osteoarthritis Continue Tylenol prn DVT ppx: On warfarin, goal INR 2.5-3.5 due to mech valve Diet: DMII/HH/Low sodium, easy to chew CODE STATUS: Full code Dispo: PT recommending rehab, [facility] to accept on sunday Admission and Anticipated Discharge Date Admission Date: July 08, 2023 Subjective Pt was seen in the AM. States that he was having abdominal pain and has not had a BM for the last 4 days. States he has been receiving the colace ordered and as needed miralax with no relief yet. otherwise denied acute concerns. Review of Systems Review of Systems: All systems reviewed & are unremarkable except as noted in Subjective Physical Exam Physical Exam: General: Alert, oriented. 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 CV: Irregular Resp: Breath sounds clear bilaterally, no increased effort of breathing. Abdomen: Soft, tender Extremities: edema in lower extremities bilaterally. Results & Data Results & Data Vital Signs (Past 12 Hours) Vital Signs Temp Pulse Resp BP Pulse Ox Pulse Ox O2 Del Method 07/14/23 08:00 07/14/23 07:24 36.6 C 83 18 120/86 97 Room Air 07/14/23 03:25 36.4 C L 86 24 112/68 97 Room Air 07/14/23 00:00 94 07/13/23 23:36 36.6 C 81 22 114/85 96 Room Air O2 Del Method 07/14/23 08:00 Room Air 07/14/23 07:24 07/14/23 03:25 07/14/23 00:00 Room Air 07/13/23 23:36 (1) CHF exacerbation Heart failure type: diastolic Qualified Code(s): I50.33 - Acute on chronic diastolic (congestive) heart failure (6) Atrial fibrillation Atrial fibrillation type: persistent (not longstanding) Qualified Code(s): I48.19 - Other persistent atrial fibrillation
--- NOTE | 2023-07-14 10:31 | XRay Report ---
XR KUB/Abdomen 1 view CLINICAL HISTORY: constipation, abd tenderness TECHNIQUE: 1 view of the abdomen was obtained. Comparison: Comparison is made to CT abdomen pelvis 07/08/2023 FINDINGS: IVC filter and right hip arthroplasty noted. The osseous structures are grossly unremarkable. The bow el gas pattern is nonobstructive. A moderate amount of stool is noted within the large bowel. IMPRESSION: Moderate stool burden without evidence of fecal impaction. ACT 112: Negative or not required by law. Electronically signed by: Chandrakant Head M.D. 07/14/2023 10:30 AM
[2023-07-14] MEDS: POLYETHYLENE (MIRALAX) 17 GM PACK PO SCH (11:58)
--- NOTE | 2023-07-14 12:36 | Oncology Consultation ---
Date of Consultation July 14, 2023 Assessment & Plan (1) Thrombocytopenia: The patient's thrombocytopenia is related to the recent viral infection. Platelet count is consistently between 100,000 250,000/mcL. There is no active bleeding. From hematological standpoint I will just watch his CBC. Peripheral smear has been ordered. Outside of that I would not recommend any other workup including a bone marrow biopsy. (2) Splenic infarct: Prior CT scan noted a splenic infarct. At this point no active intervention is warranted Plan Hematology will continue to follow the patient and make appropriate recommendations. Thank you for this interesting hematological consult. History of Present Illness Attending Physician: Kathi Ortiz MD History of Present Illness 83-year-old man with history of diabetes mellitus type 2, paroxysmal A-fib, chronic diastolic heart failure, mitral valve stenosis, aortic valvular replacement with mechanical valve on warfarin, CAD, glaucoma, hypertension, pulmonary hypertension, hyperlipidemia, ACEI nephrotoxicity, recent hospitalization 06/20/23-06/24/23 for COVID 19 pneumonia, UTI, supratherapeutic INR who has been admitted with shortness of breath again. Currently the patient is in isolation because of prior exposure to COVID-19. He is currently being treated for CHF exacerbation. During this admission it has been noted that the patient is mildly thrombocytopenic. His platelet count over the last 5 days has been 157,000 followed by 112,000, followed by 113,000 followed by 106,000 followed by 88,000 and was 110,000 today. The patient is not actively bleeding. He endorses constipation and trouble having bowel movements. He is passing gas. Hematology has been consulted for recommendations regarding thrombocytopenia Allergies Allergy/AdvReac Type Severity Reaction Status Date / Time niacin Allergy Intermediate HIVES Verified 04/21/23 09:30 Home Medications Medication Instructions Recorded Confirmed Type nitroglycerin 0.4 mg sublingual 0.4 mg sublingual PRN PRN Chest 12/09/09 06/20/23 History tablet (Nitrostat) Pain ##0 travoprost 0.004 % eye drops 1 drp OPB HS #1 btl 10/13/15 06/20/23 History allopurinol 100 mg tablet 200 mg PO Q2D 04/21/23 07/08/23 History aspirin 81 mg chewable tablet 81 mg PO .SUN/SUN/Sun04/21/23 07/08/23 History brimonidine 0.2 % eye drops 1 drp OPL BID 04/21/23 06/20/23 History dorzolamide-timolol (PF) 2 %-0.5 % 1 drp OPL BID 04/21/23 06/20/23 History eye drops in a dropperette furosemide 40 mg tablet 40 mg PO BID17 04/21/23 07/08/23 History insulin aspart U-100 100 unit/mL See Rx Instructions .Route .COMPLEX 04/21/23 07/08/23 History subcutaneous solution (Novolog U-100 Insulin aspart) insulin detemir U-100 100 unit/mL 10 unit subcut HS 04/21/23 07/08/23 History subcutaneous solution (Levemir U-100 Insulin) metformin 1,000 mg tablet 1,000 mg PO BID 04/21/23 07/08/23 History tramadol 50 mg tablet 50 mg PO Q4H PRN pain #10 tabs 05/27/23 07/08/23 Rx magnesium oxide 400 mg (241.3 mg 400 mg PO BID 06/20/23 07/08/23 History magnesium) tablet metoprolol succinate 100 mg 100 mg PO BID 06/20/23 07/08/23 History tablet,extended release 24 hr spironolactone 25 mg tablet 12.5 mg PO DAILY 06/20/23 07/08/23 History prednisone 10 mg tablet See Taper PO DIRECTED #94 tabs 06/24/23 07/08/23 Rx warfarin 4 mg tablet 2 mg PO DAILY 07/08/23 07/08/23 History Patient History Medical History (Updated 07/14/23 @ 13:53 by Primitivo Barker MD) UTI (urinary tract infection) Atrial fibrillation Anemia CHF (congestive heart failure) Mitral valve stenosis HTN (hypertension) HLD (hyperlipidemia) CAD (coronary artery disease) Lumbago Surgical History (Updated 07/13/23 @ 07:18 by JESI Macario) S/P AVR "2006" History of cataract surgery 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" History of hip surgery S/P cholecystectomy Social History Smoking Status: Former smoker Hx Alcohol Use: No Hx Substance Use: No Preferred Language: Chilean Communication Ability: Effective Bible Teacher Required: No Beliefs That Will Affect Care: None Current Living Situation: Family Current Living Situation Comment: Lives with sonJose Dixon Feels Safe at Home: Yes Safety Concerns: Feels Safe At This Time Assistive Devices: Cane, Walker and Wheelchair Physical Exam Constitutional: + ill appearing Eyes: PERRL, conjunctivae normal, anicteric sclerae ENMT: external ear and nose normal, oropharynx normal Neck: trachea midline, no thyromegaly Respiratory: normal respiratory effort, lungs clear to auscultation Cardiovascular: RRR, no murmur, no edema Gastrointestinal (Abdomen): normal bowel sounds, soft, nontender, no hepatosplenomegaly Musculoskeletal: no cyanosis or clubbing, extremities motor strength 5/5 Skin: no rashes, warm and dry Results & Data Vital Signs (Past 12 Hours) Vital Signs Temp Pulse Resp BP Pulse Ox O2 Del Method O2 Del Method 07/14/23 08:00 Room Air 07/14/23 07:24 36.6 C 83 18 120/86 97 Room Air 07/14/23 03:25 36.4 C L 86 24 112/68 97 Room Air
[2023-07-15 06:40] LABS: Hematocrit (blood only) 43.6 % (42.0-52.0); Hemoglobin 14.2 g/dl (14.0-18.0); Mean Corpuscular Hemoglobin 28.2 pg (25.0-34.0); Mean Corpuscular Hgb Conc 32.6 g/dL (32.0-36.0); Mean Corpuscular Volume 86.5 fL (80.0-100.0); Platelet Count 113 K/uL (130-400); RDW Coefficient of Variation 19.1 % (11.5-14.5); RDW Standard Deviation 59.7 fL (36.4-46.3); Red Blood Count 5.04 M/uL (4.70-6.10); White Blood Count 10.77 K/ul (4.8-10.8)
[2023-07-15 06:56] LABS: INR 3.6 (0.9-1.1); Prothrombin Time 35.9 Seconds (9.0-12.0)
[2023-07-15 07:18] LABS: BUN Creatinine Ratio 46.3 (10-20); Calcium 10.3 mg/dl (8.6-10.3); Creatinine Clr Calc Pharmacy 41.8 ml/min; Est GFR (Non-African American) 48.3 ml/min; Magnesium 2.2 mg/dl (1.7-2.4); Phosphorus 3.7 mg/dl (2.5-4.9); Potassium 4.6 mmol/L (3.5-5.1)
--- NOTE | 2023-07-15 11:48 | Hospitalist Progress Note ---
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 Acute on Chronic CHF Pulmonary Edema Per ED report, on admission pt presented with SOB but was not hypoxic, received oxygen for comfort BNP was elevated at 368 EKG noted atrial fibrillation, hs-trop was elevated at 58.2 CT chestnoted findings suggestive of pulmonary edema, patchy lower lung airspace opacities and known pulmonary nodules Echo from 06/21/2023 noted EF of 60 to 65%, moderate concentric LVH, flattened septum consistent with RV pressure overload, severely dilated left atrium, prosthetic aortic valve, moderate to severe mitral stenosis, mild to moderate mitral regurgitation, tricuspid regurgitation, right ventricular systolic pressure more than 60 mmHg. Received IV Lasix 40 mg in the ER, it was continued at twice daily dosing. Cardiology consulted, appreciate recs -continue spironolactone @ 25mg daily, IV Lasix transitioned to po torsemide 40mg BID -monitor electrolytes and renal function COVID-19 virus infection Generalized Weakness Initial positive test on 06/20/2023, repeat testing on admission positive as well Stated he had 2 days of cough and increasing shortness of breath with lower extremity swelling CT chest as above with also noted patchy lower lung airspace opacities Has profound weakness in this setting Oxygen supplementation as needed, wean as tolerated- currently on RA isolation precautions, as pt on immunosuppressive prednisone taper and will take longer to get rid of the virus, hence likely why still testing positive PT/OT-appreciate recs, recommending rehab- pt to be discharged to [facility] Elevated troponin I level hs-Trop was elevated at 58.2 and peaked at 77.1 and downtrended EKG showed AFib and nonspecific T wave changes Tele monitoring Cardiology consulted as above, doubt ACS, likely demand Atrial Fibrillation Pt with known Hx EKG noted atrial fibrillation Continue home Metoprolol Succinate 100mg BID Digoxin was added and cardiology recommended continued dose of Digoxin 0.125 mg MWF Anticoagulated with warfarin, follow INR [facility] Cardiology was consulted as above- appreciate recs for discharge -Continue home Metoprolol Succinate 100mg BID -continue dose of Digoxin 0.125 mg MWF Mechanical valve in situ Supratherapeutic INR Pt with bioprosthetic aortic valve Anticoagulated with warfarin INR supratherapeutic on admission Question of differing INR goals in outpatient records based on pt's bleeding Hx Per Cardiology this admission, INR goal of 2.5-3.5. Appreciate recs Warfarin previously on hold INR 3.3 on 07/11, warfarin 2mg daily resumed 07/13- additional warfarin dose given to increase INR which is 2.1 07/14- INR of 2.6 at goal, continue to monitor 07/15- INR 3.6, slightly above goal. 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 Continue to monitor CBC and for signs of bleeding, no further workup needed at this time. Appreciate recs. Pulmonary Nodules Noted on CT chest, with radiology noting that they are unchanged from the imaging in Apr 2023. They also note that the nodules "remain indeterminate. A chest CT in 6 months to ensure continued stability is recommended." Dysphagia Aspiration Pt with reported swallowing difficulty. Had video swallow with speech that noted aspiration with liquids Per speech, pt choosing to continue oral intake despite risk, "permissive aspiration" status Speech advising to consider ENT follow up for dysphagia/dysphonia Constipation CT abd/pelvis with moderate stool burden Scheduled colace with prn miralax 07/14- pt notes persistent abd pain and no BM for about 4 days KUB ordered- noted moderate stool burden, no signs of obstruction and no signs of fecal impaction Miralax ordered TID scheduled until pt has BM DM2 (diabetes mellitus, type 2) Son reports patient usually eats breakfast and dinner He gives him Novolog 15U with meals with extra 1 unit for every 25 above blood glucose of 120mg as well as levemir 10U HS HbA1c 7.3 in Apr 2023 Hold home metformin Lantus 10U HS ISS Accucheck AC and HS Possible temporal arteritis Pt currently on prednisone taper at 30mg daily Continue with pcp and rheumatology follow up Gout Continue home allopurinol Hypomagnesemia Continue mag supplements Osteoarthritis Continue Tylenol prn DVT ppx: On warfarin, goal INR 2.5-3.5 due to mech valve Diet: DMII/HH/Low sodium, easy to chew CODE STATUS: Full code Dispo: PT recommending rehab, [facility] to accept on sunday Admission and Anticipated Discharge Date Admission Date: July 08, 2023 Subjective pt seen while sitting in chair at bedside. States that he had a small BM at around midnight. Otherwise denied acute concerns. Review of Systems Review of Systems: All systems reviewed & are unremarkable except as noted in Subjective Physical Exam Physical Exam: General: Alert, oriented. 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 CV: Irregular Resp: Breath sounds clear bilaterally, no increased effort of breathing. Abdomen: Soft, tender Extremities: edema in lower extremities bilaterally. Results & Data Results & Data Vital Signs (Past 12 Hours) Vital Signs Temp Pulse Resp BP Pulse Ox Pulse Ox O2 Del Method 07/15/23 11:42 36.4 C L 83 99/66 L 97 Room Air 07/15/23 09:15 Room Air 07/15/23 07:38 36.4 C L 75 20 110/78 94 Room Air 07/15/23 03:55 36 C L 92 H 18 128/95 97 Room Air 07/15/23 00:00 95 O2 Del Method 07/15/23 11:42 07/15/23 09:15 07/15/23 07:38 07/15/23 03:55 07/15/23 00:00 Room Air (1) CHF exacerbation Heart failure type: diastolic Qualified Code(s): I50.33 - Acute on chronic diastolic (congestive) heart failure (6) Atrial fibrillation Atrial fibrillation type: persistent (not longstanding) Qualified Code(s): I48.19 - Other persistent atrial fibrillation
[2023-07-16 06:31] LABS: Hematocrit (blood only) 45.2 % (42.0-52.0); Hemoglobin 14.6 g/dl (14.0-18.0); Mean Corpuscular Hemoglobin 28.1 pg (25.0-34.0); Mean Corpuscular Hgb Conc 32.3 g/dL (32.0-36.0); Mean Corpuscular Volume 86.9 fL (80.0-100.0); Mean Platelet Volume 11.8 fL (9.4-12.4); Platelet Count 126 K/uL (130-400); RDW Coefficient of Variation 18.8 % (11.5-14.5); RDW Standard Deviation 58.4 fL (36.4-46.3); White Blood Count 9.97 K/ul (4.8-10.8)
[2023-07-16 06:46] LABS: BUN Creatinine Ratio 46.6 (10-20); Calcium 10.2 mg/dl (8.6-10.3); Creatinine Clr Calc Pharmacy 38.4 ml/min; Est GFR (African American) 50.5 ml/min; Est GFR (Non-African American) 43.5 ml/min; Magnesium 2.5 mg/dl (1.7-2.4); Phosphorus 4.2 mg/dl (2.5-4.9); Potassium 4.6 mmol/L (3.5-5.1)
[2023-07-16 07:39] LABS: INR 2.9 (0.9-1.1); Prothrombin Time 29.4 Seconds (9.0-12.0)
[2023-07-16] MEDS: SODIUM CHLORIDE 0.9% 1,000 ML IV SCH (09:25)
--- NOTE | 2023-07-16 12:45 | Discharge Summary ---
Discharge Summary Date of Service July 16, 2023 Notes For Next Care Provider Per Cardiology: Pt needs a repeat Digoxin level in 10 days post DC. Please continue to monitor Creatinine function. Was slightly increased at 1.4 on discharge, pt received 1L of gentle hydration before discharge. Please ensure stability. Warfarin resumed on discharge at 2mg daily dose. Please ensure close follow up with the Coumadin clinic, INR goal of 2.5-3.5 per Cardiology for mechanical valve presence. 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 Pt was on day 4 of the prednisone 20mg on discharge. Continue taking the 20mg dose until 07/19/2023, then on 07/20/2023, transition to prednisone 10mg for an additional 7 days before stopping completely. Pulmonary nodules were noted on chest CT and the radiologist recommended a repeat chest CT in 6 months for continued monitoring. Please ensure close follow up with primary care provider, Cardiology, Rheumatology and the Coumadin clinic after discharge. Medication Changes From Visit Per Cardiology: Spironolactone increased to 25mg daily Home Lasix discontinued Started on Torsemide 40mg BID Started on Digoxin 0.125mg Admission HPI Per Admitting Provider 83-year-old man with history of diabetes mellitus type 2, paroxysmal A-fib, chronic diastolic heart failure, mitral valve stenosis, aortic valvular replacement with mechanical valve on warfarin, CAD, glaucoma, hypertension, pulmonary hypertension, hyperlipidemia, ACEI nephrotoxicity, recent hospitalization 06/20/23-06/24/23 for COVID 19 pneumonia, UTI, supratherapeutic INR who presents today with shortness of breath that started overnight. History provided by patient and son who was at bedside. According to patient and son, patient has been improving since discharge from the hospital. Son reported that patient Lasix was changed to 40 mg twice daily but due to the evening dose disturbing his sleep he had been given 80 mg daily in the morning. His weight has been gradually going down was 181 pounds yesterday. Patient also reports that he had mild cough since COVID mostly dry. Reported that he started having shortness of breath overnight. Son reported that he checked his pulse oximetry which had oxygen saturation at 100, heart rate in the 80s, blood sugar 119 at home. 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 Reports some coughing with liquids but not with solids. Denied sorethroat, odynophagia. Denied chest pain, palpitation Reports dizziness on sitting and standing especially in the past day or so Denied dysuria, freq, urgency, hematuria Denied abd pain, nausea, vomiting, diarrhea, constipation, hematochezia or melena Denies smoking, alcohol or illicit drug use. Reports adherence to his medication which his son provides. He uses reading glasses and able to see his food and feed himself Per ER, he was not hypoxic. He was placed on oxygen by EMS and continued in ER for comfort Admission Exam Per Admitting Provider Constitutional: + ill appearing (chronic ill looking); n o acute distress Eyes: PERRL, conjunctivae normal, anicteric sclerae ENMT: external ear and nose normal, oropharynx normal Respiratory: no respiratory distress Auscultation: + diminished lung sounds On nasal cannula Cardiovascular: Rate/Rhythm: + irregularly irregular S1 S2, mechanical clicks Gastrointestinal (Abdomen): normal bowel sounds, soft, nontender, no hepatosplenomegaly Musculoskeletal: Bilateral pitting pedal Neurologic: PERRL, EOMI, accommodation nl, no face palsy, no dysarthria Psychiatric: A+Ox3, euthymic affect Genitourinary: Harper in situ Principal Dx & Hospital Course #1 = Principal Diagnosis (1) CHF exacerbation: (2) Elevated troponin I level: (3) Elevated lactic acid level: (4) Splenic infarct: (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 Acute on Chronic CHF Pulmonary Edema Per ED report, on admission pt presented with SOB but was not hypoxic, received oxygen for comfort BNP was elevated at 368 EKG noted atrial fibrillation, hs-trop was elevated at 58.2 CT chestnoted findings suggestive of pulmonary edema, patchy lower lung airspace opacities and known pulmonary nodules Echo from 06/21/2023 noted EF of 60 to 65%, moderate concentric LVH, flattened septum consistent with RV pressure overload, severely dilated left atrium, prosthetic aortic valve, moderate to severe mitral stenosis, mild to moderate mitral regurgitation, tricuspid regurgitation, right ventricular systolic pressure more than 60 mmHg. Received IV Lasix 40 mg in the ER, it was continued at twice daily dosing. Cardiology was consulted, recommended the following for discharge: -continue spironolactone @ 25mg daily, po torsemide 40mg BID -monitor electrolytes and renal function Cardiology follow up after discharge Atrial Fibrillation Pt with known Hx EKG noted atrial fibrillation Continue home Metoprolol Succinate 100mg BID Digoxin was added and cardiology recommended continued dose of Digoxin 0.125 mg MWF Anticoagulated with warfarin, follow INR (goal 2.5-3.5 for mech valve as noted below) Cardiology was consulted as above-recs for discharge -Continue home Metoprolol Succinate 100mg BID -continue dose of Digoxin 0.125 mg MWF. Needs a repeat Digoxin level in 10 days post DC. -Continue Coumadin with INR goal of 2.5-3.5 Close cardiology and Coumadin clinic follow up after discharge Mechanical valve in situ Supratherapeutic INR Pt with bioprosthetic aortic valve Anticoagulated with warfarin INR was supratherapeutic on admission Question of differing INR goals in outpatient records based on pt's bleeding Hx Per Cardiology this admission, INR goal of 2.5-3.5 Warfarin was held initially with supratherapeutic INR on admission, then resumed. INR on the day of discharge was 2.9. Closely monitor the INR after discharge and ensure it remains within goal of 2.5-3.5 Close coumadin clinic and PCP follow up. Elevated troponin I level hs-Trop was elevated at 58.2 and peaked at 77.1 and downtrended EKG showed AFib and nonspecific T wave changes Telemetry monitoring Cardiology consulted as above, doubt ACS, likely elevated in setting of demand ischemia COVID-19 virus infection Generalized Weakness Initial positive test on 06/20/2023, repeat testing on admission positive as well Stated he had 2 days of cough and increasing shortness of breath with lower extremity swelling CT chest as above with also noted patchy lower lung airspace opacities Has profound weakness in this setting Oxygen supplementation was provided as needed, weaned as tolerated- discharged on RA Isolation precautions were employed, as pt was on immunosuppressive prednisone taper and will take longer to get rid of the virus, hence likely why still testing positive. PT/OT- recommending acute rehab- pt discharged to [facility] for acute rehab. JIGNA Pt with noted slight elevation in Cr to 1.4 on day of discharge Has been moving bowels now more frequently after being constipated, stool now watery or "diarrhea" Received 1L of gentle hydration Per cardiology: "Renal function remains stable- continue Torsemide 40 mg BID at discharge" PCP follow up Elevated lactic acid level On admission, lactate was elevated at 5.1-->3.6 Elevated lactate likely due to heart failure WBC was borderline at 12K on admission, currently wnl Procal was normal Urine on admission with no signs of infection One Blood Cx from 07/08 grew coag neg staph, likely contaminant Repeat Blood Cx x 2 from 07/10 with NGTD Low suspicion for infection at this time Splenic Infarct Pt with noted splenic infarct on CT abd/pelvis, age indeterminate however per radiology, new from 04/2023 Pt has been anticoagulated on warfarin On 07/11 noting abdominal pain, diffuse CT abd/pelvis also noting moderate stool burden Will continue to monitor abd pain in this setting INR currently within goal Continue ASA 81mg at home dose Thrombocytopenia Recent decrease in platelet level Peripheral smear reviewed- did not suggest a cause Hematology consult was placed - advising likely caused by current viral infection with COVID. -advised to continue to monitor CBC and for signs of bleeding, no further workup needed at this time. Platelets were 126K on discharge with a noted kaylee of 88K during hospitalization PCP follow up for continued monitoring Pulmonary Nodules Noted on CT chest, with radiology noting that they are unchanged from the imaging done in Apr 2023. They also note that the nodules "remain indeterminate." Recommended a chest CT in 6 months to ensure continued stability. Dysphagia Aspiration Pt with reported swallowing difficulty. Had video swallow with speech that noted aspiration with liquids Per speech, pt choosing to continue oral intake despite risk, has "permissive aspiration" status Speech advising to consider ENT follow up for dysphagia/dysphonia PCP follow up Constipation CT abd/pelvis with moderate stool burden Scheduled colace with prn miralax initially On 07/14, pt noted persistent abd pain and no BM for about 4 days KUB was ordered- noted moderate stool burden, no signs of obstruction and no signs of fecal impaction Miralax ordered TID scheduled- pt with noted bowel movements, per nursing copious. Per pt small. Miralax and colace discontinued on the day of discharge. DM2 (diabetes mellitus, type 2) Son reports patient usually eats breakfast and dinner He gives him Novolog 15U with meals with extra 1 unit for every 25 above blood glucose of 120mg as well as levemir 10U HS HbA1c 7.3 in Apr 2023 home metformin was held Lantus 10U HS ISS Accucheck AC and HS Resume home medications after discharge. 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 Pt was on day 4 of the prednisone 20mg on discharge. Continue taking the 20mg dose until 07/19/2023, then on 07/20/2023, transition to prednisone 10mg for an additional 7 days before stopping completely. Gout Continue home allopurinol Hypomagnesemia Continue magnesium supplements Osteoarthritis Continue Tylenol prn Discharge Exam General: Alert, oriented. 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 CV: Irregular Resp: Breath sounds clear bilaterally, no increased effort of breathing. Abdomen: Soft, tender Extremities: edema in lower extremities bilaterally. Updated Medication List Medication Instructions Recorded Confirmed Type nitroglycerin 0.4 mg sublingual 0.4 mg sublingual PRN PRN Chest 12/09/09 06/20/23 History tablet (Nitrostat) Pain ##0 travoprost 0.004 % eye drops 1 drp OPB HS #1 btl 10/13/15 06/20/23 History allopurinol 100 mg tablet 200 mg PO Q2D 04/21/23 07/08/23 History aspirin 81 mg chewable tablet 81 mg PO .MON/SUN/Sun04/21/23 07/08/23 History brimonidine 0.2 % eye drops 1 drp OPL BID 04/21/23 06/20/23 History dorzolamide-timolol (PF) 2 %-0.5 % 1 drp OPL BID 04/21/23 06/20/23 History eye drops in a dropperette furosemide 40 mg tablet 40 mg PO BID17 04/21/23 07/08/23 History insulin aspart U-100 100 unit/mL See Rx Instructions .Route .COMPLEX 04/21/23 07/08/23 History subcutaneous solution (Novolog U-100 Insulin aspart) insulin detemir U-100 100 unit/mL 10 unit subcut HS 04/21/23 07/08/23 History subcutaneous solution (Levemir U-100 Insulin) metformin 1,000 mg tablet 1,000 mg PO BID 04/21/23 07/08/23 History tramadol 50 mg tablet 50 mg PO Q4H PRN pain #10 tabs 05/27/23 07/08/23 Rx magnesium oxide 400 mg (241.3 mg 400 mg PO BID 06/20/23 07/08/23 History magnesium) tablet metoprolol succinate 100 mg 100 mg PO BID 06/20/23 07/08/23 History tablet,extended release 24 hr spironolactone 25 mg tablet 12.5 mg PO DAILY 06/20/23 07/08/23 History prednisone 10 mg tablet See Taper PO DIRECTED #94 tabs 06/24/23 07/08/23 Rx warfarin 4 mg tablet 2 mg PO DAILY 07/08/23 07/08/23 History digoxin 125 mcg (0.125 mg) tablet 0.125 mg PO MoWeFr@1600 #30 tabs 07/16/23 Rx (Digitek) spironolactone 25 mg tablet 25 mg PO DAILY #30 tabs 07/16/23 Rx torsemide 20 mg tablet 40 mg (2 x 20 mg) PO BID #120 tabs 07/16/23 Rx Additional Medication Comments Current Inpatient Medications Acetaminophen (Acetaminophen 500 Mg Tab) 1,000 mg PO Q8H PRN PRN Reason: Pain or Fever Stop: 08/10/23 10:32 Last Admin: 07/15/23 12:40 Dose: 1,000 mg Allopurinol (Allopurinol 100 Mg Tab) 200 mg PO Q2D@0900 [facility] Stop: 08/07/23 15:29 Last Admin: 07/16/23 09:26 Dose: 200 mg Aspirin (Aspirin 81 Mg Chew) 81 mg PO MoWeFr@0900 [facility] Stop: 08/08/23 08:59 Last Admin: 07/16/23 09:26 Dose: 81 mg Dextrose (Dextrose 50% 50 Ml Syringe) 25 - 50 ml IV UD PRN; Protocol PRN Reason: Hypoglycemia Protocol Stop: 08/07/23 15:14 Digoxin (Digoxin 0.125 Mg Tab) 0.125 mg PO MoWeFr@1600 [facility] Stop: 08/12/23 15:59 Last Admin: 07/13/23 17:31 Dose: 0.125 mg Docusate Sodium (Docusate Sodium 100 Mg Cap) 100 mg PO BID RONAN Stop: 08/10/23 14:29 Last Admin: 07/16/23 09:26 Dose: Not Given Glucagon (Glucagon For Inj 1 Mg Vial) 1 mg SQ UD PRN; Protocol PRN Reason: Hypoglycemia Protocol Stop: 08/07/23 15:14 Glucose (Glucose 10 Tab/Tube) 4 - 8 tab PO UD PRN; Protocol PRN Reason: Hypoglycemia Treatment Stop: 08/07/23 15:14 Glucose (Glucose 40% Gel 15 Gm Tube) 15 - 30 gm PO UD PRN; Protocol PRN Reason: Hypoglycemia Protocol Stop: 08/07/23 15:14 Sodium Chloride (Nss) 1,000 mls @ 80 mls/hr IV .[id number] [facility] Stop: 07/16/23 20:59 Last Admin: 07/16/23 09:25 Dose: 80 mls/hr Insulin Aspart (Insulin Aspart Per Unit Charge) 0 units SC ACHS [facility] Stop: 08/07/23 16:29 Last Admin: 07/16/23 12:25 Dose: 4 units Insulin Glargine (Lantus Per Unit Charge) 10 units SQ HS RONAN Stop: 08/07/23 20:59 Last Admin: 07/15/23 20:45 Dose: 10 units Magnesium Oxide (Magnesium Oxide 400 Mg Tab) 400 mg PO BID [facility] Stop: 08/07/23 15:29 Last Admin: 07/16/23 09:27 Dose: 400 mg Metoprolol Succinate (Metoprolol Succ 50mg Ext Rel Tab) 100 mg PO BID [facility] Stop: 08/07/23 20:59 Last Admin: 07/16/23 09:27 Dose: 100 mg Miscellaneous (Carbohydrates For Hypoglycemia ) 15 - 30 gm PO UD PRN PRN Reason: Hypoglycemia Protocol Stop: 08/07/23 15:14 Polyethylene Glycol (Polyethylene (Miralax) 17 Gm Pack) 17 gm PO TID RONAN Stop: 08/13/23 08:59 Last Admin: 07/16/23 09:27 Dose: Not Given Potassium Chloride (Potassium Chloride Crtab 20 Meq Tabcr) 20 meq PO QAM [facility] Stop: 08/12/23 08:59 Last Admin: 07/16/23 09:27 Dose: 20 meq Prednisone (Prednisone 10 Mg Tablet) 20 mg PO DAILY [facility]; Taper Stop: 07/27/23 15:29 Last Admin: 07/16/23 09:27 Dose: 20 mg Spironolactone (Spironolactone 25 Mg Tab) 25 mg PO DAILY [facility] Stop: 08/11/23 08:59 Last Admin: 07/16/23 09:28 Dose: 25 mg Torsemide (Torsemide 10 Mg Tab) 40 mg PO BID17 [facility] Stop: 08/11/23 16:59 Last Admin: 07/16/23 09:28 Dose: 40 mg Warfarin Sodium (Warfarin Sod 2 Mg Tab) 2 mg PO DAILY@1600 [facility] Stop: 08/10/23 15:59 Last Admin: 07/14/23 15:44 Dose: 2 mg Hospital Stay Data Consultations 07/08/23 11:12 ED Decision to Admit Stat 07/08/23 15:15 Consult Cardiology Routine 07/14/23 07:32 Consult Hematology Routine Diagnostic Imagining Performed 07/08/23 08:29 CT chest diagnostic wo con Stat 07/08/23 08:48 CT abd pelvis wo con Stat 07/09/23 14:00 FL video swallow Routine Chest CT 07/08/23 08:29 CT OF THE CHEST WITHOUT IV CONTRAST CLINICAL HISTORY: sob, ?CHF COMPARISON STUDY: Chest CT April 21, 2023. Chest radiograph June 20, 2023. TECHNIQUE: Axial images of the chest were obtained without IV contrast. Images were reviewed in the axial, sagittal, and coronal planes. IV contrast was not administered for this examination. Automated exposure control was utilized for the study. A dose lowering technique was utilized adhering to the principles of ALARA. FINDINGS: No enlarged axillary, mediastinal or hilar lymph nodes are present. Multiple thyroid nodules are similar to prior CT. There is mild cardiomegaly and extensive coronary artery calcification. Extensive mitral annular calcification is noted. There is a prosthetic aortic valve. There is no pericardial effusion. No pneumothorax or pleural effusion is present. Multiple solid noncalcified pulmonary nodules are unchanged since chest CT of April 21, 2023. The largest is a 7 mm left upper lobe nodule on image 51 of 249. There are mild groundglass opacities with mosaic attenuation within the lungs. Subtle interlobular septal thickening is present. There are patchy lower lung airspace opacities. No confluent consolidation. No central obstructing mass is present. Abdomen and pelvis CT will be reported separately. IMPRESSION: 1. Subtle groundglass opacities and interlobular septal thickening. The findings favor a mild pulmonary edema. 2. Mild lower lung scattered opacities which could reflect atelectasis, scarring or a superimposed infectious process. 3. No change in multiple pulmonary nodules since chest CT of April 21, 2023. These remain indeterminate. A chest CT in 6 months to ensure continued stability is recommended. ACT 112: Negative or not required by law. Electronically signed by: Anurag Pandey M.D. 07/08/2023 10:08 AM Abdomen/Pelvis CT 07/08/23 08:48 CT OF THE ABDOMEN AND PELVIS WITHOUT CONTRAST CLINICAL HISTORY: mild diffuse pain, sob, swelling COMPARISON STUDY: CT of the abdomen and pelvis April 22, 2023. TECHNIQUE: Axial images of the abdomen and pelvis were obtained without IV contrast. Images were reviewed in the axial, sagittal, and coronal planes. Automated exposure control was utilized for the study. A dose lowering techn ique was utilized adhering to the principles of ALARA. FINDINGS: Please note that the chest CT will be reported separately. No pneumatosis, free air or portal venous gas is present. No renal, ureteral or bladder calculi are present. There is no hydronephrosis. Evaluation of the remainder of the abdomen and pelvis is suboptimal on this unenhanced exam. There is no biliary ductal dilatation status post cholecystectomy. There is bilateral gynecomastia. Liver, adrenal glands and pancreas are unremarkable. A 4.3 x 2.2 cm hypodense focus within the superior aspect of the spleen is new since prior CT. There is no evidence for a bowel obstruction. There is a moderate amount stool within the rectum. No bowel wall thickening is identified on unenhanced exam. The appendix is normal. There is no lymphadenopathy. IVC filter is in place. Right hip arthroplasty is intact. No acute fractures within the visualized skeletal structures are present. Water attenuation left renal lesion favors a cyst. IMPRESSION: 1. 4.3 x 2.2 cm hypodense focus within the spleen. This represents an age indeterminate splenic infarct however is new since CT of April 22, 2023. 2. No urinary calculi. No hydronephrosis. 3. No bowel obstruction. ACT 112: Negative or not required by law. Electronically signed by: Anurag Pandey M.D. 07/08/2023 10:18 AM Videofluoroscopic Swallow 07/09/23 14:00 MODIFIED BARIUM SWALLOW CLINICAL HISTORY: r/o aspiration COMPARISON STUDY: None. FLUOROSCOPY TIME: 2.36 minutes. Ka, r: 12 mGy. TECHNIQUE: A modified barium swallow was performed in conjunction with Speech Pathology. The patient ingested varying consistencies of barium containing material. Video fluoroscopy was performed. FINDINGS: There were multiple episodes of tracheal aspiration with thin liquids and nectar thick liquids. Premature spillage was noted with diminished epiglottic inversion and laryngeal elevation. There was passive opening of the u pper esophageal sphincter. Moderate retention within the vallecula and piriform sinuses was noted with multiple consistencies. No tracheal aspiration was identified with pudding or cracker in pudding consistencies. Residuals were noted with these consistencies. IMPRESSION: 1. Multiple episodes of tracheal aspiration with thin liquids and nectar thick liquids. Impaired swallowing mechanism with diminished epiglottic inversion and laryngeal elevation. Passive opening of the upper esophageal sphincter. 2. Moderate residuals with multiple consistencies. 3. Full recommendations by Speech pathology to follow. ACT 112: Negative or not required by law. Electronically signed by: Anurag Pandey M.D. 07/09/2023 3:20 PM KUB X-Ray 07/14/23 08:55 XR KUB/Abdomen 1 view CLINICAL HISTORY: constipation, abd tenderness TECHNIQUE: 1 view of the abdomen was obtained. Comparison: Comparison is made to CT abdomen pelvis 07/08/2023 FINDINGS: IVC filter and right hip arthroplasty noted. The osseous structures are grossly unremarkable. The bowel gas pattern is nonobstructive. A moderate amount of stool is noted within the large bowel. IMPRESSION: Moderate stool burden without evidence of fecal impaction. ACT 112: Negative or not required by law. Electronically signed by: Chandrakant Head M.D. 07/14/2023 10:30 AM Pending Results Patient Have Any Pending Studies at Discharge: No Discharge Instructions Given to Patient (Per Discharging Provider) Mr. Rojas, You are being discharged to an acute rehabilitation facility to help you regain your strength before going home. You were seen by cardiology while you were here and they made some changes to your medications to help you breathe better while out of the hospital. They increased the dose of your home spironolactone and they changed your home lasix to torsemide. Please take those medications as prescribed. They also added to the medication Digoxin to your regimen. Please take as prescribed. Please keep close follow up with the coumadin clinic to ensure your INR remains at goal of 2.5-3.5. You were still testing positive for COVID while you were here, likely due to your chronic use of prednisone as it can suppress your immune system and cause you to take longer to get rid of the virus. 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 On discharge you were on day 4 of the prednisone 20mg. Continue taking the 20mg dose, then on 07/20/2023 start taking prednisone 10mg for an additional 7 days before stopping completely. Please keep close follow up with your primary care provider about this as well. Pulmonary nodules were noticed on chest CT and the radiologist recommended a repeat chest CT in 6 months to continue to monitor that. Again, please keep close follow up with your primary care provider, cardiology, rheumatology and the Coumadin clinic after discharge. Please do not hesitate to come back to the emergency room if your symptoms worsen or return. It was a pleasure taking care of you while you were here. Total Time Total Time Spent Total Time Spent (In Minutes): > 30 minutes
--- NOTE | 2023-07-16 13:32 | Cardiology Progress Note ---
Date of Service July 16, 2023 Assessment & Plan (1) Diastolic heart failure due to valvular disease: (2) Permanent atrial fibrillation: (3) Pneumonia due to COVID-19 virus: (4) S/P AVR: (5) residential current use of anticoagulant: Plan IMPRESSION: Medically complex 83 year old male admitted with acute on chronic HFpEF Longstanding history of Paroxysmal/persistent atrial fibrillation, Aortic stenosis s/p [place] mechanical AVR, severe mitral stenosis, and pulmonary HTN. PLAN: 1. Acute on chronic diastolic Heart failure due to valvular disease -Continue increased dose of Aldactone 25 mg daily at discharge -Renal function remains stable- continue Torsemide 40 mg BID at discharge. -Repeat portable chest X ray 2. Persistent atrial fibrillation: -Known history of A-fib, currently rate controlled, 80-low 100s. -Continue Toprol xl 100 mg BID at discharge. -Given x1 dose of Digoxin 0.25 mg (07/12). Digoxin 0.125 mg started 07/13. Continue Digoxin 0.125 mg MWF Only at discharge. Needs a repeat Digoxin level in 10 days post DC. 3. S/p mechanical AVR -Coumadin INR goal of 2.5-3.5 (INR 2.9 this am)-- Coumadin was resumed 07/11/2023. This chart was completed in part utilizing Speech Voice Recognition Software. Grammatical errors, random word insertions, pronoun errors, and incomplete sentences are an occasional consequence of this system due to software limitations, ambient noise, and hardware issues. Any formal questions or concerns about the content, text, or information contained within the body of this dictation should be directly addressed to the provider for clarification. Admission and Anticipated Discharge Date Admission Date: July 08, 2023 Subjective Patient seen in cardiology follow-up. Notes bowels are moving better. With ongoing generalized weakness, but no subjective shortness of breath at rest. No subjective palpitations. Pulse oximetry 90% on room air. Telemetry reveals atrial fibrillation 80s with ventricular rate ranging from 80 bpm to 100 bpm. Physical Exam Constitutional: WD/WN, vitals as above + ill appearing and + cachectic; no acute distress Neck: normal visual inspection and trachea midline Respiratory: normal respiratory effort; no cough and not tachypneic Auscultation: + diminished lung sounds; no rales, no rhonchi and no wheezes Cardiovascular: Rate/Rhythm: regular rate and + irregularly irregular Heart Sounds: normal S1, normal S2 and + murmur (+3/6 systolic murmur) Vessels: no JVD Extremities: no edema Gastrointestinal (Abdomen): normal bowel sounds, soft, nontender, no hepatosplenomegaly Skin: no rashes, warm and dry Psychiatric: Orientation: alert and oriented x 3 Results & Data Vital Signs (Past 12 Hours) Vital Signs Temp Pulse Resp BP Pulse Ox O2 Del Method 07/16/23 11:00 36.5 C 90 16 100/75 98 Room Air 07/16/23 08:00 Room Air 07/16/23 07:30 36.9 C 87 18 112/71 96 Room Air 07/16/23 02:45 37 C 81 18 108/73 99 Room Air Laboratory Results Coagulation 07/16/23 Range/Units 05:54 PT 29.4 H (9.0-12.0) Seconds INR: 2.9 CBC 07/16/23 Range/Units 05:54 WBC 9.97 (4.8-10.8) K/ul RBC 5.20 (4.70-6.10) M/uL Hgb 14.6 (14.0-18.0) g/dl Hct 45.2 (42.0-52.0) % Plt Count 126 L (130-400) K/uL Comprehensive Metabolic Panel 07/16/23 Range/Units 05:54 Sodium 136 (136-145) mmol/L Potassium 4.6 (3.5-5.1) mmol/L Chloride 94 L (98-107) mmol/L Carbon Dioxide 35 H (21-32) mmol/L BUN 68 H (6-23) mg/dl Creatinine 1.46 H (0.6-1.4) mg/dl Glucose 164 H (70-99(Fasting)) mg/dl Calcium 10.2 (8.6-10.3) mg/dl Intake and Output 07/15/23 07/16/23 07/16/23 22:59 06:59 14:59 Intake Total 1690 / 2750 100 / 2750 Output Total 525 / 1176 350 / 1176 Balance 1165 / 1574 -250 / 1574 Intake: Oral 1690 / 2750 100 / 2750 Output: Urine 525 / 1175 350 / 1175 Other: # Unmeasured Voids 1 (1) Diastolic heart failure due to valvular disease Heart failure chronicity: acute on chronic Qualified Code(s): I50.33 - Acute on chronic diastolic (congestive) heart failure; I38 - Endocarditis, valve unspecified
--- NOTE | 2023-07-16 18:31 | XRay Report ---
SINGLE VIEW CHEST CLINICAL HISTORY: Congestive heart failure. FINDINGS: An AP, portable, upright chest radiograph is compared to study dated 06/20/2023 and correlate d with chest CT dated 07/08/2023. The patient is status post midline sternotomy. The heart is enlarged noting atherosclerotic calcification of the thoracic aorta. The pulmonary vasculature is noncongeste d. Chronic interstitial thickening is similar to previous. There is chronic elevation of the right he midiaphragm noting bibasilar scarring/atelectasis. The lungs and pleural spaces are otherwise clear. No pneumothorax is seen. The skeletal structures are osteopenic. The bony thorax is grossly intact. A bone island projects over the right second rib. IMPRESSION: 1. Cardiomegaly without radiographic evidence of congestive failure. 2. No airspace consolidation or pleural effusion is identified. ACT 112: Negative or not required by law. Electronically signed by: Alexandre Quinn M.D. 07/16/2023 6:30 PM
== END 2023-07-16 15:30 | DRG 291 ==
LOC: ED 08:09 → 2E 12:24 → SUATTDRO 12:24 → 2E 14:02